=== PATIENT | female | born 1950 | race Caucasian/White ===

== ENCOUNTER 2017-08-27 15:53 | Emergency (ER) | payer MEDICARE, OTHER ==
[2017-08-27 16:22] VITALS: BP 145/84; PULSE 72; O2SAT 98
--- NOTE | 2017-08-27 16:50 | ERPHSYRPT ---
- History of Present Illness Time Seen by Provider: 08/27/17 16:42 Source: patient Exam Limitations: no limitations Patient Subjective Stated Complaint: pt reports stepping down from a small step ladder when she struck her leg. pt reports pain and laceration to right lower leg. pt denies LOC. pt denies any other injury. Triage Nursing Assessment: pt is aox3, pupils perrl, afebrile, resps easy and non labored, radial pulses strong and equal. pt skin pink warm dry. laceration to the right bartlett measuring 3cm. wound is well approximated, bleeding is controlled at this time. pedal pulse strong, sensation intact, cap refill < 3 seconds. Physician History: The patient is a 67-year-old female complaining that she slipped as she was stepping off of a ladder in her kitchen causing the front lower part of her right lower leg to catch on the ladder, causing a skin tear. She did not fall and hit her head. There was no loss of consciousness. Her last tetanus vaccination was only 2 months ago. She denies numbness or tingling. Her past medical history significant for UTIs and hypertension. Timing/Duration: today Quality: painful Severity: mild Location: extremities (right lower leg) Possible Causes: other (fall) Associated Symptoms: denies symptoms Allergies/Adverse Reactions: clarithromycin [From Biaxin] Allergy (Severe, Verified 08/27/17 16:23) Hives Coconut Allergy (Severe, Verified 08/27/17 16:23) Difficulty Breathing green dye *RETIRED-07/03/12 [Green Dye] Allergy (Mild, Verified 08/27/17 16:23) Swelling swelling ears red dye [Red Dye] Allergy (Mild, Verified 08/27/17 16:23) Swelling ears swell levofloxacin [From Levaquin] Adverse Reaction (Mild, Verified 08/27/17 16:23) Joint Aches Home Medications: Amitriptyline HCl 50 mg PO DAILY 08/16/15 [History] Esomeprazole Magnesium [Nexium] 20 mg PO BID 08/16/15 [History] Lisinopril 10 mg [Zestril 10 MG] 10 mg PO DAILY 08/16/15 [History] Tramadol HCl 50 mg [Ultram 50 mg] 50 mg PO DAILY 08/16/15 [History] Zolpidem Tartrate [Ambien] 10 mg PO HS 08/16/15 [History] Hx Tetanus, Diphtheria Vaccination/Date Given: Yes Hx Influenza Vaccination/Date Given: No Hx Pneumococcal Vaccination/Date Given: No Immunizations Up to Date: Yes - Review of Systems Constitutional: No Fever, No Chills Eyes: No Symptoms Ears, Nose, & Throat: No Symptoms Respiratory: No Cough, No Dyspnea Cardiac: No Chest Pain, No Edema, No Syncope Abdominal/Gastrointestinal: No Abdominal Pain, No Nausea, No Vomiting, No Diarrhea Genitourinary Symptoms: No Dysuria Musculoskeletal: No Back Pain, No Neck Pain Skin: Other (skin tear), No Rash Neurological: No Dizziness, No Focal Weakness, No Sensory Changes Psychological: No Symptoms Endocrine: No Symptoms Hematologic/Lymphatic: No Symptoms Immunological/Allergic: No Symptoms All Other Systems: Reviewed and Negative - Past Medical History Pertinent Past Medical History: Yes ENT History: No Pertinent History Cardiac History: High Cholesterol, Hypertension Respiratory History: Asthma, Other Endocrine Medical History: Diabetes Type I Musculoskeletal History: Arthritis, Fractures GI Medical History: Diverticulitis, Gallbladder Disease, Pancreatitis History: No Pertinent History Psycho-Social History: Depression Female Reproductive Disorders: No Pertinent History Other Medical History: BLADDER TIE - Past Surgical History Past Surgical History: Yes Neuro Surgical History: No Pertinent History Cardiac: No Pertinent History Respiratory: No Pertinent History Gastrointestinal: Appendectomy, Cholecystectomy, Hernia Repair Genitourinary: No Pertinent History Musculoskeletal: No Pertinent History, Joint Replacement Female Surgical History: Hysterectomy, Other Other Surgical History: tonsilectomy, carpal tunnel, trigger finger X3, BLADDER SLING - Social History Smoking Status: Never smoker How long have you smoked: 20 years Exposure to second hand smoke: No Drug Use: none Patient Lives Alone: No - Female History Hx Now: No - Nursing Vital Signs Nursing Vital Signs: Initial Vital Signs Temperature 98.9 F 08/27/17 16:11 Pulse Rate 72 08/27/17 16:11 Respiratory Rate 20 08/27/17 16:11 Blood Pressure 145/84 08/27/17 16:11 O2 Sat by Pulse Oximetry 98 08/27/17 16:11 Pain Scale Pain Intensity 8 - Physical Exam General Appearance: no apparent distress, alert Eye Exam: PERRL/EOMI, eyes nml inspection Ears, Nose, Throat Exam: normal ENT inspection, pharynx normal, moist mucous membranes Neck Exam: normal inspection, non-tender, supple, full range of motion Respiratory Exam: normal breath sounds, lungs clear, No respiratory distress Cardiovascular Exam: regular rate/rhythm, normal heart sounds Gastrointestinal/Abdomen Exam: soft, mass, No tenderness Pelvic Exam: not done Rectal Exam: not done Back Exam: normal inspection, normal range of motion, No CVA tenderness, No vertebral tenderness Extremity Exam: normal inspection, normal range of motion Neurologic Exam: alert, 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, cooperative, normal mood/affect, sensation nml, No motor deficits Skin Exam: laceration (2 x 4 cm skin tear to infero-anterior aspect of rigth lower leg. Good hemostasis.) SpO2: 98 Oxygen Delivery: Room Air - Progress Progress: improved Counseled pt/family regarding: diagnosis - Departure Time of Disposition: 16:54 Departure Disposition: Home Clinical Impression: Skin tear Condition: Stable Critical Care Time: No Referrals: WENDY WILLS [Primary Care Provider] - Additional Instructions: You have a skin tear to the front part of your lower right leg. The skin tear was repaired with Steri-Strips. Allow the Steri-Strips to fall off on their own. Try to avoid immersion in water for prolonged periods of time until the Steri-Strips have fallen off. Take Keflex 500 mg 4 times a day for 10 days. Follow-up with your primary medical doctor as needed. Prescriptions: Cephalexin Mh 500 mg [Keflex 500 mg] 1 cap PO QID #40 capsule
== END 2017-08-27 17:27 | disposition home or self-care (01) ==
LOC: ED 15:53
DX: S81.811A Laceration without foreign body, right lower leg, initial encounter (principal); W18.49XA Other slipping, tripping and stumbling without falling, initial encounter; Y92.000 Kitchen of unspecified non-institutional (private) residence as the place of occurrence of the external cause; Z79.899 Other long term (current) drug therapy
CPT/HCPCS: 99283

== ENCOUNTER 2017-11-04 10:41 | Emergency (ER) | payer MEDICARE, OTHER ==
[2017-11-04] MEDS ORDERED: DUONEB 0.5-3 MG/3 ml Neb IH ONE ×2 (10:57→11:19)
--- NOTE | 2017-11-04 11:04 | ERPHSYRPT ---
- History of Present Illness Time Seen by Provider: 11/04/17 10:53 Source: patient Exam Limitations: no limitations Physician History: 67 y/o female comes to the ER with complaints of cough, congestion and shortness of breath that started yesterday. Pt has not used any OTC medss. Pt states that she has knee surgery on 11/13. Pt admits to feeling warm. Pt states having pneumonia in the past and this feels similar to that time. Pt denies any chest pain, dizziness, palpitations or leg swelling. Timing/Duration: yesterday Cough Quality/Degree: moderate Possible Cause: no prior episodes Modifying Factors: Improves With: nothing Associated Symptoms: cough, shortness of breath, No wheezing International travel in last 2 weeks: No Allergies/Adverse Reactions: clarithromycin [From Biaxin] Allergy (Severe, Verified 11/04/17 11:07) Hives Coconut Allergy (Severe, Verified 11/04/17 11:07) Difficulty Breathing green dye *RETIRED-07/03/12 [Green Dye] Allergy (Mild, Verified 11/04/17 11:07) Swelling swelling ears red dye [Red Dye] Allergy (Mild, Verified 11/04/17 11:07) Swelling ears swell levofloxacin [From Levaquin] Adverse Reaction (Mild, Verified 11/04/17 11:07) Joint Aches Home Medications: Esomeprazole Magnesium [Nexium] 20 mg PO BID 08/16/15 [History] Lisinopril 10 mg [Zestril 10 MG] 10 mg PO DAILY 08/16/15 [History] Zolpidem Tartrate [Ambien] 10 mg PO HS 08/16/15 [History] Hx Tetanus, Diphtheria Vaccination/Date Given: Yes Hx Influenza Vaccination/Date Given: No Hx Pneumococcal Vaccination/Date Given: No - Review of Systems Constitutional: No Fever, No Chills Eyes: No Symptoms Ears, Nose, & Throat: Ear Pain Respiratory: Cough, Dyspnea on Exertion (WILSON), No Dyspnea Cardiac: No Chest Pain, No Edema, No Syncope Abdominal/Gastrointestinal: No Abdominal Pain, No Nausea, No Vomiting, No Diarrhea Genitourinary Symptoms: No Dysuria Musculoskeletal: No Back Pain, No Neck Pain Skin: No Rash Neurological: No Dizziness, No Focal Weakness, No Sensory Changes Psychological: No Symptoms Endocrine: No Symptoms All Other Systems: Reviewed and Negative - Past Medical History Pertinent Past Medical History: Yes Neurological History: No Pertinent History ENT History: No Pertinent History Cardiac History: Arrhythmia, Hypertension Respiratory History: Asthma, Bronchitis Endocrine Medical History: Diabetes Type II Musculoskeletal History: Arthritis GI Medical History: Diverticulitis, Gallbladder Disease, Pancreatitis History: No Pertinent History Psycho-Social History: Depression Female Reproductive Disorders: No Pertinent History Other Medical History: BLADDER TIE - Past Surgical History Past Surgical History: Yes Neuro Surgical History: No Pertinent History Cardiac: No Pertinent History Respiratory: No Pertinent History Gastrointestinal: Appendectomy, Cholecystectomy, Hernia Repair Genitourinary: No Pertinent History Musculoskeletal: No Pertinent History, Joint Replacement Female Surgical History: Hysterectomy, Other Other Surgical History: tonsilectomy, carpal tunnel, trigger finger X3, BLADDER SLING - Social History Smoking Status: Never smoker How long have you smoked: 20 years Exposure to second hand smoke: No Drug Use: none Patient Lives Alone: No - Nursing Vital Signs Nursing Vital Signs: Initial Vital Signs Temperature 98.1 F 11/04/17 10:55 Pulse Rate 64 11/04/17 10:55 Respiratory Rate 18 11/04/17 10:55 Blood Pressure 150/57 11/04/17 10:55 O2 Sat by Pulse Oximetry 97 11/04/17 10:55 Pain Scale Pain Intensity 2 - Physical Exam General Appearance: no apparent distress, alert Eye Exam: PERRL/EOMI, eyes nml inspection Ears, Nose, Throat Exam: normal ENT inspection, TMs normal, pharynx normal, moist mucous membranes Neck Exam: normal inspection, non-tender, supple, full range of motion Respiratory Exam: normal breath sounds, lungs clear, No respiratory distress Cardiovascular Exam: regular rate/rhythm, normal heart sounds Gastrointestinal/Abdomen Exam: soft, normal bowel sounds, No tenderness Back Exam: normal inspection, No CVA tenderness, No vertebral tenderness Extremity Exam: normal inspection, normal range of motion Neurologic Exam: alert, 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, cooperative, normal mood/affect, sensation nml, No motor deficits Skin Exam: normal color, warm, dry, No rash Lymphatic Exam: No adenopathy - Course Nursing assessment & vital signs reviewed: Yes EKG Interpreted by Me: RATE (HR 62), NORMAL AXIS, NORMAL INTERVALS, NORMAL QRS, NORMAL ST-T Ordered Tests: Active Orders 24 hr Category Date Time 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 Care 11/04/17 10:56 Active EKG-ER Only STAT Care 11/04/17 10:56 Active IV Insertion STAT Care 11/04/17 10:56 Active Pulse Oximetry (ED) STAT Care 11/04/17 10:56 Active CHEST 1 VIEW (PORTABLE) Stat Exams 11/04/17 11:14 Taken BLOOD CULTURE Stat Lab 11/04/17 11:00 Received CBC W DIFF Stat Lab 11/04/17 11:00 Completed CK-Creatinine Phosphokinase Stat Lab 11/04/17 11:00 Completed CMP Stat Lab 11/04/17 11:00 Completed NT PRO BNP Stat Lab 11/04/17 11:00 Completed TROPONIN Q3H Lab 11/04/17 11:00 Completed TROPONIN Q3H Lab 11/04/17 14:00 Ordered TROPONIN Q3H Lab 11/04/17 17:00 Ordered TROPONIN Q3H Lab 11/04/17 20:00 Ordered TROPONIN Q3H Lab 11/04/17 23:00 Ordered Peak Expiratory Flow Rate ONCE RT 11/04/17 11:23 Completed Respiratory Therapy Assessment DAILY RT 11/04/17 11:22 Completed Medication Summary Discontinued Medications Generic Name Dose Route Start Last Admin Trade Name Freq PRN Reason Stop Dose Admin Albuterol/Ipratropium 3 ml 11/04/17 10:57 11/04/17 11:23 Duoneb 0.5-3 Mg/3 Ml Neb IH 11/04/17 10:58 3 ml STAT ONE Administration Albuterol/Ipratropium Confirm 11/04/17 11:19 Duoneb 0.5-3 Mg/3 Ml Neb Administered 11/04/17 11:20 Dose 3 ml IH .STK-MED ONE Doxycycline Hyclate 100 mg 11/04/17 11:55 Vibramycin 100 Mg PO 11/04/17 11:56 STAT ONE Lab/Rad Data: Laboratory Result Diagrams 11/04/17 11:00 11/04/17 11:00 Laboratory Results 11/04/17 11/04/17 11/04/17 Range/Units 11:00 11:00 11:00 WBC 6.6 (4.0-10.5) K/mm3 RBC 4.84 (4.1-5.4) M/mm3 Hgb 14.2 (12.0-16.0) gm/dl Hct 42.4 (35-47) % MCV 87.6 (78-100) fl MCH 29.3 (26-32) pg MCHC 33.5 (32-36) g/dl RDW 14.5 H (11.5-14.0) % Plt Count 201 (150-450) K/mm3 MPV 11.7 H (6-9.5) fl Gran % 59.1 (36.0-66.0) % Eos # (Auto) 0.46 (0-0.5) Absolute Lymphs (auto) 1.44 (1.0-4.6) Absolute Monos (auto) 0.75 (0.0-1.3) Lymphocytes % 21.9 L (24.0-44.0) % Monocytes % 11.4 (0.0-12.0) % Eosinophils % 7.0 H (0.00-5.0) % Basophils % 0.6 (0.0-0.4) % Absolute Granulocytes 3.88 (1.4-6.9) Basophils # 0.04 (0-0.4) Sodium 141 (137-145) mmol/L Potassium 4.1 (3.5-5.1) mmol/L Chloride 103 (98-107) mmol/L Carbon Dioxide 28 (22-30) mmol/L Anion Gap 14.1 (5-15) MEQ/L BUN 18 H (7-17) mg/dL Creatinine 0.74 (0.52-1.04) mg/dL Estimated GFR > 60.0 ML/MIN Glucose 129 H (74-106) mg/dL Calcium 9.1 (8.4-10.2) mg/dL Total Bilirubin 0.90 (0.2-1.3) mg/dL AST 21 (14-36) U/L ALT 21 (0-35) U/L Alkaline Phosphatase 95 (38-126) U/L Creatine Kinase 23 L (30-135) U/L Troponin I < 0.012 (0.000-0.034) ng/mL NT-Pro-B Natriuret Pep 212 (0-900) pg/mL Serum Total Protein 7.1 (6.3-8.2) g/dL Albumin 4.4 (3.5-5.0) g/dL - Progress Progress: improved Progress Note: 11/04/17 11:55 The CXR does not show any pneumonia and the labs as well as cardiac workup is within normal limits. The patient will be placed on doxycycline for 7 days for suspected bronchitis. - Departure Time of Disposition: 11:56 Departure Disposition: Home Clinical Impression: Bronchitis Condition: Stable Critical Care Time: No Referrals: WENDY WILLS [Primary Care Provider] - Instructions: Acute Bronchitis, Adult (DC) Additional Instructions: Return to the ER if you should have worsening shortness of breath, cough, congestion, fever or chills. Prescriptions: Benzonatate [Tessalon Perle] 100 mg PO QID PRN #20 capsule PRN Reason: Cough Doxycycline Hyclate 100 mg [Vibramycin 100 MG] 100 mg PO BID #13 tab
[2017-11-04 11:28] LABS: BASOPHIL % 0.6 % (0.0-0.4); Basophil (Absolute #) 0.04 (0-0.4); Eosinophil (Absolute #) 0.46 (0-0.5); Granulocyte Absolute (ANC) 3.88 (1.4-6.9); Granulocytes % 59.1 % (36.0-66.0); Hematocrit 42.4 % (35-47); Hemoglobin 14.2 gm/dl (12.0-16.0); Lymphocyte (Absolute #) 1.44 (1.0-4.6); Lymphocytes % 21.9 % (24.0-44.0); Mean Cell Volume 87.6 fl (78-100); Mean Corpuscular Hemoglobin 29.3 pg (26-32); Mean Corpuscular Hgb Concent. 33.5 g/dl (32-36); Mean Platelet Volume 11.7 fl (6-9.5); Monocyte (Absolute #) 0.75 (0.0-1.3); Monocytes % 11.4 % (0.0-12.0); Platelet Count 201 K/mm3 (150-450); Red Blood Count 4.84 M/mm3 (4.1-5.4); Red Cell Distribution Width 14.5 % (11.5-14.0); White Blood Count 6.6 K/mm3 (4.0-10.5)
[2017-11-04 11:46] LABS: ALBUMIN 4.4 g/dL (3.5-5.0); ALKALINE PHOSPHATASE 95 U/L (38-126); ANION GAP 14.1 MEQ/L (5-15); BLOOD UREA NITROGEN 18 mg/dL (7-17); CHLORIDE 103 mmol/L (98-107); CK-Creatinine Phosphokinase 23 U/L (30-135); Calcium 9.1 mg/dL (8.4-10.2); Carbon Dioxide 28 mmol/L (22-30); Creatinine 1 0.74 mg/dL (0.52-1.04); Glucose 129 mg/dL (74-106); NT PRO BNP 212 pg/mL (0-900); Potassium 4.1 mmol/L (3.5-5.1); SGOT/AST 21 U/L (14-36); SGPT/ALT 21 U/L (0-35); SODIUM 141 mmol/L (137-145); Total Protein 7.1 g/dL (6.3-8.2)
[2017-11-04] MEDS ORDERED: Vibramycin 100 MG PO ONE (11:55)
[2017-11-04] MEDS ORDERED: Vibramycin 100 MG ONE (12:20)
[2017-11-04 12:35] VITALS: BP 130/53; PULSE 70; O2SAT 95
--- NOTE | 2017-11-04 20:46 | XRAY ---
Indication: Fever, cough, and congestion. Comparison: February 27, 2012. Portable chest again demonstrates hilar calcified nodes. Heart is not enlarged. No focal infiltrate, consolidation, or large effusion. Bony thorax intact. New epigastric postsurgical changes. Impression: Nonacute chest with chronic features.
== END 2017-11-04 12:42 | disposition home or self-care (01) ==
LOC: ED 10:41
DX: J40 Bronchitis, not specified as acute or chronic (principal); Z79.899 Other long term (current) drug therapy
CPT/HCPCS: 36000; 36415; 71045; 80053; 82550; 83880; 84484; 85025; 87040; 93005; 93041; 94150; 94640; 99284; A9270-GY

== ENCOUNTER 2017-11-16 10:15 | Inpatient (IN) | payer MEDICARE, OTHER ==
[2017-11-16] MEDS: Oxy-IR 5 MG PO PRN (16:34)
[2017-11-16] MEDS ORDERED: Tessalon Perles 100 MG PO PRN (17:25)
--- NOTE | 2017-11-16 17:59 | PCM.HP ---
History of Present Illness - Chief Complaint Chief Complaint: deconditioning r/t right tkr Date: 11/16/17 History of Present Illness: is a 67 year old female. who presents after right total knee completed at [facility] she has some pretty severe pain in the knee after transfer and some residual coughing from her previous bought of bronchitis she has not had a bm since prior to surgery her last A1c was 5.8% and she has not been on her glipizide since the surgery. She recovered very well from her first total knee on the left - Review of Systems Constitutional: No Fever, No Chills Eyes: No Symptoms Ears, Nose, & Throat: No Symptoms Respiratory: Cough, No Short Of Breath Cardiac: No Chest Pain, No Edema, No Syncope Abdominal/Gastrointestinal: No Abdominal Pain, No Nausea, No Vomiting, No Diarrhea Genitourinary Symptoms: No Dysuria Musculoskeletal: No Back Pain, No Neck Pain Skin: No Rash Neurological: No Dizziness, No Focal Weakness, No Sensory Changes Psychological: No Symptoms Endocrine: No Symptoms Hematologic/Lymphatic: No Symptoms Immunological/Allergic: No Symptoms Medications & Allergies Home Medications: Home Medication List Zolpidem Tartrate [Ambien] 10 mg PO HSPRN PRN 08/16/15 [History Confirmed ] Albuterol 8 gm Mdi Hfa [Ventolin Hfa MDI] 2 puff IH Q4HPRN PRN 11/16/17 [ History Confirmed 11/16/17] Allopurinol 100 mg [Zyloprim 100 mg] 100 mg PO HS 11/16/17 [History Confirmed 11/16/17] Aspirin EC 325 mg [Ecotrin 325 MG] 325 mg PO BID 11/16/17 [History Confirmed 11/16/17] Benzonatate [Tessalon Perle] 100 mg PO TIDPRN PRN 11/16/17 [History Confirmed ] Celecoxib [Celebrex] 200 mg PO BID 11/16/17 [History Confirmed 11/16/17] Doxycycline Hyclate 100 mg [Vibramycin 100 MG] 100 mg PO BID 11/16/17 [ History Confirmed 11/16/17] Fluticasone Propionate [Flonase NASAL] 1 spray NS HSPRN PRN 11/16/17 [ History Confirmed 11/16/17] Glipizide 5 mg [Glucotrol 5 MG] 5 mg PO BID 11/16/17 [History Confirmed ] Hydrocodone Bit/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 [[place] 7.5-325 Tablet] 1 - 2 tab PO Q4HPRN PRN 09/26 [History Confirmed 11/16/17] Loratadine 10 mg [Claritin 10 mg] 10 mg PO HS 11/16/17 [History Confirmed 11/16/17] Ondansetron ODT 4 MG [Zofran Odt 4 mg] 1 - 2 tab PO Q6HPRN PRN 11/16/17 [ History Confirmed 11/16/17] Oxycodone HCl 5 mg Ir [Oxy-IR 5 MG] 1 - 2 tab PO Q4HPRN PRN 11/16/17 [ History Confirmed 11/16/17] Sennosides/Docusate Sodium [Senna-S Tablet] 2 tab PO HSPRN PRN 11/16/17 [ History Confirmed 11/16/17] Spironolactone 25 mg [Aldactone 25 MG] 25 mg PO 1800 11/16/17 [History Confirmed 11/16/17] Allergies/Adverse Reactions: Allergies Allergy/AdvReac Type Severity Reaction Status Date / Time clarithromycin [From Biaxin] Allergy Severe Hives Verified 11/04/17 11:07 Coconut Allergy Severe Difficulty Verified 11/04/17 11:07 Breathing green dye *RETIRED-07/03/12 Allergy Mild Swelling Verified 11/04/17 11:07 [Green Dye] red dye [Red Dye] Allergy Mild Swelling Verified 11/04/17 11:07 levofloxacin [From Levaquin] AdvReac Mild Joint Aches Verified 11/04/17 11:07 - Past Medical History Past Medical History: Yes Neurological History: No Pertinent History ENT History: No Pertinent History Cardiac History: Arrhythmia, Hypertension Respiratory History: Asthma, Bronchitis Endocrine Medical History: Diabetes Type II Musculoskelatal History: Arthritis GI Medical History: Diverticulitis, Gallbladder Disease, Pancreatitis History: No Pertinent History Pyscho-Social History: No Pertinent History Reproductive Disorders: No Pertinent History Comment: BLADDER TIE - Female History Are you now?: No - Past Surgical History Past Surgical History: Yes Neuro Surgical History: No Pertinent History Cardiac History: No Pertinent History Respiratory Surgery: No Pertinent History GI Surgical History: Appendectomy, Cholecystectomy, Hernia Repair Genitourinary Surgical Hx: No Pertinent History Musculskeletal Surgical Hx: No Pertinent History, Joint Replacement, Orthopedic Surgery Female Surgical History: Hysterectomy, Other Other Surgical History: tonsilectomy, carpal tunnel, trigger finger X3, BLADDER SLING, colorectal - Social History Smoking Status: Former smoker How long have you smoked: 20 years Exposure to second hand smoke: No Alcohol: None Drug Use: none - Physical Exam Vital Signs: Vital Signs - 24 hr Temp Pulse Resp BP Pulse Ox 11/16/17 17:22 98 F 62 20 125/56 98 11/16/17 16:49 98.0 F 62 20 125/56 98 General Appearance: no apparent distress, alert, obese Neurologic Exam: alert, 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, cooperative, normal mood/affect, nml cerebellar function Eye Exam: PERRL/EOMI, eyes nml inspection Ears, Nose, Throat Exam: normal ENT inspection, TMs normal, pharynx normal, moist mucous membranes Neck Exam: normal inspection, non-tender, supple, full range of motion Respiratory Exam: normal breath sounds, lungs clear, No respiratory distress Cardiovascular Exam: regular rate/rhythm, normal heart sounds, normal peripheral pulses Gastrointestinal/Abdomen Exam: soft, normal bowel sounds, No tenderness, No mass Back Exam: normal inspection, normal range of motion, No CVA tenderness, No vertebral tenderness Extremity Exam: pelvis stable, other (right knee post op surgical dressing clean and dry no distal swelling or calf tenderness she does have skin tear on the distal right lower leg with clean dry base that per patient occured during surgery) Skin Exam: normal color, warm, dry, No rash Lymphatic Exam: No adenopathy Results - Labs Lab/Micro Results: Accuchecks Date 11/16/17 Time 16:30 Accucheck Value: 88 Accuchecks Date 11/16/17 Time 16:30 Accucheck Value: 88 Assessment/Plan (1) Muscular deconditioning Current Visit: Yes Status: Acute Assessment & Plan: good rehab potential follow post op orders for therapy per ortho on asa 325 bid for her dvt ppx Code(s): R29.898 - OTH SYMPTOMS AND SIGNS INVOLVING THE MUSCULOSKELETAL SYSTEM (2) Total knee replacement status Current Visit: Yes Status: Acute Qualifiers: Laterality: right Qualified Code(s): Z96.651 - Presence of right artificial knee joint Code(s): Z96.659 - PRESENCE OF UNSPECIFIED ARTIFICIAL KNEE JOINT (3) Type 2 diabetes mellitus Current Visit: Yes Status: Acute Assessment & Plan: currently diet controlled sugar is 82 and she has not had any glipizide this week continue off the glipizide (4) Obesity Current Visit: Yes Status: Acute Code(s): E66.9 - OBESITY, UNSPECIFIED
[2017-11-16] MEDS: Aldactone 25 MG PO SCH (18:03)
[2017-11-16] MEDS: NORCO 7.5/325 MG TAB PO PRN ×2 (18:22→22:29)
[2017-11-16] MEDS ORDERED: NON-FORMULARY ITEM (Celecoxib [Celebrex] 200 MG) PO SCH (22:00)
[2017-11-16] MEDS ORDERED: PROVENTIL 2.5 MG/3 ML NEB IH PRN (22:14)
[2017-11-16] MEDS ORDERED: PROVENTIL COMMON CANISTER IH PRN (22:14)
[2017-11-16] MEDS: ZYLOPRIM 100 MG PO SCH (22:30)
[2017-11-16] MEDS: CLARITIN 10 MG PO SCH (22:30)
[2017-11-16] MEDS: celeBREX 100 MG PO SCH (22:30)
[2017-11-16] MEDS: Ecotrin 325 MG PO SCH (22:31)
[2017-11-17] MEDS: Ambien 10 MG PO PRN ×2 (00:23→21:39)
[2017-11-17] MEDS: NORCO 7.5/325 MG TAB PO PRN ×4 (04:54→21:47)
[2017-11-17] MEDS: Oxy-IR 5 MG PO PRN (06:06)
[2017-11-17] MEDS ORDERED: Aplisol ID SCH (10:00)
[2017-11-17] MEDS: celeBREX 100 MG PO SCH ×2 (10:27→21:39)
[2017-11-17] MEDS: Ecotrin 325 MG PO SCH ×2 (10:27→21:40)
[2017-11-17] MEDS: Aldactone 25 MG PO SCH (17:46)
[2017-11-17] MEDS: Senokot-S Tablet PO PRN (17:56)
[2017-11-17] MEDS: ZOFRAN ODT 4 MG PO PRN (19:44)
[2017-11-17] MEDS: ZYLOPRIM 100 MG PO SCH (21:39)
[2017-11-17] MEDS: CLARITIN 10 MG PO SCH (21:39)
[2017-11-18] MEDS: NORCO 7.5/325 MG TAB PO PRN ×3 (03:43→14:59)
[2017-11-18] MEDS: Oxy-IR 5 MG PO PRN ×2 (07:35→12:24)
[2017-11-18] MEDS: Ecotrin 325 MG PO SCH ×2 (09:22→21:28)
[2017-11-18] MEDS: celeBREX 100 MG PO SCH ×2 (09:22→21:28)
[2017-11-18] MEDS: ZOFRAN ODT 4 MG PO PRN ×2 (10:58→17:04)
[2017-11-18] MEDS: Aldactone 25 MG PO SCH (17:03)
[2017-11-18] MEDS: ZYLOPRIM 100 MG PO SCH (21:28)
[2017-11-18] MEDS: CLARITIN 10 MG PO SCH (21:28)
[2017-11-18] MEDS: Ambien 10 MG PO PRN (21:28)
[2017-11-19] MEDS ORDERED: CITROMA 296 ML PO ONE (08:23)
[2017-11-19] MEDS: celeBREX 100 MG PO SCH ×2 (08:48→22:11)
[2017-11-19] MEDS: Ecotrin 325 MG PO SCH ×2 (08:48→22:11)
[2017-11-19] MEDS: NORCO 5/325 MG PO PRN ×3 (09:58→22:15)
[2017-11-19] MEDS: Oxy-IR 5 MG PO PRN ×2 (12:54→20:26)
[2017-11-19] MEDS: Aldactone 25 MG PO SCH (20:27)
[2017-11-19] MEDS: Ambien 10 MG PO PRN (22:10)
[2017-11-19] MEDS: Senokot-S Tablet PO PRN (22:11)
[2017-11-19] MEDS: CLARITIN 10 MG PO SCH (22:11)
[2017-11-19] MEDS: ZYLOPRIM 100 MG PO SCH (22:11)
[2017-11-20] MEDS: NORCO 5/325 MG PO PRN ×3 (03:35→21:27)
[2017-11-20] MEDS: TYLENOL 325 MG PO PRN (08:35)
[2017-11-20] MEDS: celeBREX 100 MG PO SCH ×2 (09:11→21:27)
[2017-11-20] MEDS: Miralax Powder 17GM PACKET PO SCH (09:11)
[2017-11-20] MEDS: Ecotrin 325 MG PO SCH ×2 (09:11→21:26)
[2017-11-20] MEDS: Oxy-IR 5 MG PO PRN ×2 (10:47→18:35)
[2017-11-20] MEDS: Aldactone 25 MG PO SCH (17:22)
[2017-11-20] MEDS: ZOFRAN ODT 4 MG PO PRN (18:35)
[2017-11-20] MEDS: CLARITIN 10 MG PO SCH (21:26)
[2017-11-20] MEDS: Ambien 10 MG PO PRN (21:27)
[2017-11-20] MEDS: ZYLOPRIM 100 MG PO SCH (21:27)
[2017-11-21] MEDS: NORCO 5/325 MG PO PRN ×4 (03:42→19:19)
[2017-11-21] MEDS: Ecotrin 325 MG PO SCH ×2 (09:29→21:59)
[2017-11-21] MEDS: celeBREX 100 MG PO SCH ×2 (09:29→21:59)
[2017-11-21] MEDS: Miralax Powder 17GM PACKET PO SCH (09:30)
[2017-11-21] MEDS: Oxy-IR 5 MG PO PRN ×3 (11:28→22:08)
[2017-11-21] MEDS: Aldactone 25 MG PO SCH (17:55)
[2017-11-21] MEDS: Ambien 10 MG PO PRN (21:59)
[2017-11-21] MEDS: Senokot-S Tablet PO PRN (21:59)
[2017-11-21] MEDS: ZYLOPRIM 100 MG PO SCH (22:00)
[2017-11-21] MEDS: CLARITIN 10 MG PO SCH (22:00)
[2017-11-22] MEDS: TYLENOL 325 MG PO PRN (02:14)
[2017-11-22] MEDS: NORCO 5/325 MG PO PRN ×4 (06:16→21:46)
[2017-11-22] MEDS: Ecotrin 325 MG PO SCH ×2 (10:27→21:15)
[2017-11-22] MEDS: celeBREX 100 MG PO SCH ×2 (10:27→21:14)
[2017-11-22] MEDS: Miralax Powder 17GM PACKET PO SCH (10:28)
[2017-11-22] MEDS: Oxy-IR 5 MG PO PRN (14:03)
[2017-11-22] MEDS: Aldactone 25 MG PO SCH (18:08)
[2017-11-22] MEDS: CLARITIN 10 MG PO SCH (21:14)
[2017-11-22] MEDS: ZYLOPRIM 100 MG PO SCH (21:14)
[2017-11-22] MEDS: Senokot-S Tablet PO PRN (21:27)
[2017-11-22 21:55] LABS: Appearance CLOUDY (CLEAR); Bacteria PACKED /HPF (NEGATIVE); Bilirubin NEGATIVE (NEGATIVE); Blood 50 Ery/ul (0-5); Epithelial Cells MODERATE /HPF (FEW); Glucose NEGATIVE (NEGATIVE); Ketones NEGATIVE (NEGATIVE); Leukocyte Esterase 1+ (NEGATIVE); Mucus MODERATE /HPF (NEGATIVE); Nitrite POSITIVE (NEGATIVE); Protein,Urine Dip NEGATIVE (Negative); RBC 0-2 /HPF (0-2); Specific Gravity 1.015 (1.005-1.025); Urobilinogen NORMAL mg/dL (0-1); WBC 25-50 /HPF (0-5)
[2017-11-22] MEDS: Ambien 10 MG PO PRN (23:26)
[2017-11-23] MEDS: NORCO 5/325 MG PO PRN ×3 (03:46→12:20)
[2017-11-23] MEDS: KEFLEX 500 MG PO SCH ×3 (08:08→21:22)
[2017-11-23] MEDS: ZOFRAN ODT 4 MG PO PRN ×2 (08:12→16:20)
[2017-11-23] MEDS: Ecotrin 325 MG PO SCH ×2 (09:46→21:21)
[2017-11-23] MEDS: celeBREX 100 MG PO SCH ×2 (09:47→21:22)
[2017-11-23] MEDS: Miralax Powder 17GM PACKET PO SCH (10:46)
[2017-11-23] MEDS: Aldactone 25 MG PO SCH (16:20)
[2017-11-23] MEDS: Oxy-IR 5 MG PO PRN ×2 (16:21→20:38)
[2017-11-23] MEDS: TYLENOL 325 MG PO PRN (17:31)
[2017-11-23] MEDS ORDERED: Sodium Chloride 0.9% 100 ML IVPB 100 ML IV ONE (17:50)
[2017-11-23] MEDS: ZYLOPRIM 100 MG PO SCH (21:21)
[2017-11-23] MEDS: CLARITIN 10 MG PO SCH (21:22)
[2017-11-23] MEDS: Ambien 10 MG PO PRN (23:23)
[2017-11-24] MEDS: Oxy-IR 5 MG PO PRN ×2 (00:36→13:05)
[2017-11-24] MEDS: NORCO 5/325 MG PO PRN ×4 (04:31→19:59)
[2017-11-24] MEDS: celeBREX 100 MG PO SCH ×2 (09:58→21:52)
[2017-11-24] MEDS: Ecotrin 325 MG PO SCH ×2 (09:58→21:53)
[2017-11-24] MEDS: KEFLEX 500 MG PO SCH ×2 (09:58→21:52)
[2017-11-24] MEDS: Miralax Powder 17GM PACKET PO SCH (10:00)
[2017-11-24] MEDS: Aldactone 25 MG PO SCH (17:57)
[2017-11-24] MEDS: ZOFRAN ODT 4 MG PO PRN (19:24)
[2017-11-24] MEDS: CLARITIN 10 MG PO SCH (21:52)
[2017-11-24] MEDS: ZYLOPRIM 100 MG PO SCH (21:52)
[2017-11-25] MEDS: Ambien 10 MG PO PRN ×2 (00:43→23:22)
[2017-11-25] MEDS: NORCO 5/325 MG PO PRN ×3 (00:44→16:01)
--- NOTE | 2017-11-25 08:23 | PCM.NOTE ---
Date and Time: 11/25/17820 Subjective Assessment: patient reports she feels "yucky" no vomiting but slightly nauseated, knee is still fairly painful. had right total knee done 12 days ago Objective Exam General Appearance: no apparent distress, alert, obese Respiratory Exam: normal breath sounds, lungs clear, No respiratory distress Cardiovascular Exam: regular rate/rhythm, normal heart sounds Gastrointestinal/Abdomen Exam: soft, No tenderness, No mass Extremity Exam: other (well approximated scar right knee, no drainage, no redness. clean, dry and intact) OBJECTIVE DATA Vital Signs: Vital Signs - 24 hr Temp Pulse Resp BP Pulse Ox 11/25/17 07:06 97.7 F 64 18 110/51 95 11/24/17 19:31 98.5 F 70 18 118/53 97 Pain Assessment - Last Documented Pain Intensity 6 Pain Scale Used 0-10 Pain Scale Intake and Output: Intake & Output 11/22/17 11/23/17 11/24/17 11/25/17 11:59 11:59 11:59 11:59 Intake Total 296 899 0369 1860 Output Total 100 1000 Balance 278 679 5998 860 Weight 102.1 kg Lab Results: Accuchecks Accucheck Value: 106 Multi-Disciplinary Progress Notes: Multi-Disciplinary Progress Notes 11/24/17 13:06 Physical Therapy Note by Lyndsey Sauer PATIENT UNABLE TO TOLERATE THERAPY SESSION YESTERDAY DUE TO SYSTEMIC ILLNESS ( UTI). TODAY WAS ABLE TO EXERCISE WITH PACING. AROM RIGHT KNEE 0 TO 114 DEGREES. WILL WALK OFTEN TOMORROW. HOPEFUL FOR FEELING BETTER BY SUNDAY. Initialized on 11/24/17 13:06 - END OF NOTE Assessment/Plan (1) UTI (urinary tract infection) Current Visit: No Status: Acute Qualifiers: Urinary tract infection type: site unspecified Hematuria presence: without hematuria Qualified Code(s): N39.0 - Urinary tract infection, site not specified Assessment & Plan: culture reviewed, need to start IV rocephin due to allergies and resistance on culture Code(s): N39.0 - URINARY TRACT INFECTION, SITE NOT SPECIFIED (2) Total knee replacement status Current Visit: Yes Status: Acute Qualifiers: Laterality: right Qualified Code(s): Z96.651 - Presence of right artificial knee joint Code(s): Z96.659 - PRESENCE OF UNSPECIFIED ARTIFICIAL KNEE JOINT (3) Muscular deconditioning Current Visit: Yes Status: Acute Code(s): R29.898 - OTH SYMPTOMS AND SIGNS INVOLVING THE MUSCULOSKELETAL SYSTEM (4) Obesity Current Visit: Yes Status: Acute Code(s): E66.9 - OBESITY, UNSPECIFIED (5) Type 2 diabetes mellitus Current Visit: Yes Status: Acute
[2017-11-25] MEDS: ROCEPHIN 1 Gm-D5w 50 ml Bag** 1 G/50 ML IVPB IV SCH (09:23)
[2017-11-25] MEDS: Zofran 4 MG/2 ML VIAL IV PRN ×2 (09:23→20:10)
[2017-11-25] MEDS: Ecotrin 325 MG PO SCH ×2 (09:26→21:55)
[2017-11-25] MEDS: Miralax Powder 17GM PACKET PO SCH (09:27)
[2017-11-25] MEDS: celeBREX 100 MG PO SCH ×2 (09:27→21:54)
[2017-11-25] MEDS ORDERED: Levofloxacin 250MG Tablet PO SCH (10:00)
[2017-11-25] MEDS: Aldactone 25 MG PO SCH (19:48)
[2017-11-25] MEDS: Senokot-S Tablet PO PRN (20:10)
[2017-11-25] MEDS: ZYLOPRIM 100 MG PO SCH (21:55)
[2017-11-25] MEDS: CLARITIN 10 MG PO SCH (21:55)
[2017-11-25] MEDS: TYLENOL 325 MG PO PRN (23:22)
[2017-11-26] MEDS: Zofran 4 MG/2 ML VIAL IV PRN ×2 (02:43→15:12)
[2017-11-26 05:52] LABS: BASOPHIL % 0.9 % (0.0-0.4); Basophil (Absolute #) 0.05 (0-0.4); Eosinophil % 7.8 % (0.00-5.0); Eosinophil (Absolute #) 0.43 (0-0.5); Granulocyte Absolute (ANC) 2.93 (1.4-6.9); Granulocytes % 52.9 % (36.0-66.0); Hematocrit 37.7 % (35-47); Hemoglobin 12.5 gm/dl (12.0-16.0); Lymphocyte (Absolute #) 1.38 (1.0-4.6); Mean Cell Volume 88.1 fl (78-100); Mean Corpuscular Hemoglobin 29.2 pg (26-32); Mean Corpuscular Hgb Concent. 33.2 g/dl (32-36); Mean Platelet Volume 10.1 fl (6-9.5); Monocyte (Absolute #) 0.74 (0.0-1.3); Monocytes % 13.4 % (0.0-12.0); Platelet Count 321 K/mm3 (150-450); Red Blood Count 4.28 M/mm3 (4.1-5.4); Red Cell Distribution Width 14.3 % (11.5-14.0); White Blood Count 5.5 K/mm3 (4.0-10.5)
[2017-11-26 06:20] LABS: ALBUMIN 3.7 g/dL (3.5-5.0); ALKALINE PHOSPHATASE 112 U/L (38-126); ANION GAP 12.3 MEQ/L (5-15); BLOOD UREA NITROGEN 14 mg/dL (7-17); CHLORIDE 102 mmol/L (98-107); Calcium 8.9 mg/dL (8.4-10.2); Carbon Dioxide 29 mmol/L (22-30); Glucose 120 mg/dL (74-106); SGOT/AST 20 U/L (14-36); SGPT/ALT 17 U/L (0-35); SODIUM 139 mmol/L (137-145); Total Protein 6.3 g/dL (6.3-8.2)
[2017-11-26] MEDS: Ecotrin 325 MG PO SCH ×2 (08:47→22:02)
[2017-11-26] MEDS: celeBREX 100 MG PO SCH ×2 (08:47→22:02)
[2017-11-26] MEDS: ROCEPHIN 1 Gm-D5w 50 ml Bag** 1 G/50 ML IVPB IV SCH (08:47)
[2017-11-26] MEDS: TYLENOL 325 MG PO PRN ×2 (08:47→12:28)
[2017-11-26] MEDS: Miralax Powder 17GM PACKET PO SCH (10:07)
[2017-11-26] MEDS: Oxy-IR 5 MG PO PRN (14:37)
[2017-11-26] MEDS: Aldactone 25 MG PO SCH (17:33)
[2017-11-26] MEDS ORDERED: Oxy-IR 5 MG PO PRN (18:01)
[2017-11-26] MEDS: NORCO 5/325 MG PO PRN (22:02)
[2017-11-26] MEDS: CLARITIN 10 MG PO SCH (22:02)
[2017-11-26] MEDS: ZYLOPRIM 100 MG PO SCH (22:02)
[2017-11-26] MEDS: Ambien 10 MG PO PRN (22:03)
[2017-11-27] MEDS: Zofran 4 MG/2 ML VIAL IV PRN (09:01)
[2017-11-27] MEDS: ROCEPHIN 1 Gm-D5w 50 ml Bag** 1 G/50 ML IVPB IV SCH (09:08)
[2017-11-27] MEDS: Miralax Powder 17GM PACKET PO SCH (09:09)
[2017-11-27] MEDS: Ecotrin 325 MG PO SCH ×2 (09:09→21:41)
[2017-11-27] MEDS: celeBREX 100 MG PO SCH ×2 (09:09→21:41)
[2017-11-27] MEDS ORDERED: Aplisol ID SCH (10:00)
[2017-11-27] MEDS ORDERED: Sodium Chloride 0.9% 1000 ML 1,000 ML IV SCH (12:30)
--- NOTE | 2017-11-27 12:32 | PCM.NOTE ---
Date and Time: 11/27/17 1227 Subjective Assessment: This is a patient of Dr. Nasim Del Rosario's here for therapy after total right knee replacement at outside facility. Patient reports she has only had 1/2 of a couple of drinks today and is nauseated at times and doesn't feel like eating. She is concerned about her UTI. She denies any dysuria. She states she spoke with Lyndsey Sauer during therapy today that she might be dehydrated. Lyndsey Sauer showed her how her skin is tenting. She had labs yesterday but not today. Her nurse notes that she has been off her oral hypoglycemic the whole time she has been here and her blood glucoses have been good. Patient reports she doesn't want to go home if she is not ready. Patient reports some left upper quadrant pain and suprapubic pain but denies dysuria. - Review of Systems Constitutional: No Symptoms Eyes: No Symptoms Ears, Nose, & Throat: No Symptoms Respiratory: No Symptoms Abdominal/Gastrointestinal: Nausea, Other (poor appetite.) Musculoskeletal: Other (right knee pain) Objective Exam General Appearance: no apparent distress, alert, obese Neurologic Exam: alert, cooperative, normal mood/affect Skin Exam: normal color, warm, dry, rash, other (scar over right knee healing well) Respiratory Exam: normal breath sounds, No crackles/rales, No rhonchi, No wheezing Cardiovascular Exam: regular rate/rhythm, normal heart sounds, No murmur, No friction rub, No gallop Gastrointestinal/Abdomen Exam: soft, normal bowel sounds, tenderness, No distention, No mass, No guarding Extremity Exam: other (no c/c/e) OBJECTIVE DATA Vital Signs: Vital Signs - 24 hr Temp Pulse Resp BP Pulse Ox 11/27/17 07:27 98.3 F 67 16 139/62 94 L 11/26/17 19:43 98.8 F 72 20 134/61 93 L Pain Assessment - Last Documented Pain Intensity 6 Pain Scale Used 0-10 Pain Scale Intake and Output: Intake & Output 11/25/17 11/26/17 11/27/17 11/28/17 06:59 06:59 06:59 06:59 Intake Total 2220 990 720 240 Output Total 1000 Balance 1220 990 720 240 Lab Results: Accuchecks Date 11/27/17 Time 07:30 Accucheck Value: 118 Multi-Disciplinary Progress Notes: Multi-Disciplinary Progress Notes 11/26/17 14:25 Nutrition Note by Rae Colunga F/u Note: Regular diet con't with 50-100% po intake. Note pt nauseated yesterday. Labs - glu 120, weight on adm 108 kg current weight 102.1 kg. goals not met consistently. Recommend NCS lowfat diet. Goals to con't. Will monitor and f/ u prn. T.DYAN Colunga Initialized on 11/26/17 14:25 - END OF NOTE Assessment/Plan (1) UTI (urinary tract infection) Current Visit: No Status: Acute Qualifiers: Urinary tract infection type: site unspecified Hematuria presence: without hematuria Qualified Code(s): N39.0 - Urinary tract infection, site not specified Assessment & Plan: Continue ceftriaxone. Recheck UA. If she is discharged, will plan to send her home on cefdinir (also a 3rd generation cephalosporin). Code(s): N39.0 - URINARY TRACT INFECTION, SITE NOT SPECIFIED (2) Poor appetite Current Visit: Yes Status: Acute Code(s): R63.0 - ANOREXIA (3) Nausea Current Visit: Yes Status: Acute Assessment & Plan: Zofran ordered. Patient reports she has taken hydrocodone in the past without nausea. Code(s): R11.0 - NAUSEA (4) Total knee replacement status Current Visit: Yes Status: Acute Qualifiers: Laterality: right Qualified Code(s): Z96.651 - Presence of right artificial knee joint Assessment & Plan: Continue with therapy and follow up planned with orthopedic surgeon. Code(s): Z96.659 - PRESENCE OF UNSPECIFIED ARTIFICIAL KNEE JOINT (5) Type 2 diabetes mellitus Current Visit: Yes Status: Acute Qualifiers: Diabetes mellitus prison insulin use: without prison use Diabetes mellitus complication status: without complication Qualified Code(s): E11.9 - Type 2 diabetes mellitus without complications Assessment & Plan: Currently diet controlled.
[2017-11-27 13:50] LABS: Appearance CLEAR (CLEAR); Bilirubin NEGATIVE (NEGATIVE); Blood NEGATIVE Ery/ul (0-5); Glucose NEGATIVE (NEGATIVE); Ketones NEGATIVE (NEGATIVE); Leukocyte Esterase NEGATIVE (NEGATIVE); Nitrite NEGATIVE (NEGATIVE); Protein,Urine Dip NEGATIVE (Negative); Urobilinogen NORMAL mg/dL (0-1)
[2017-11-27 13:54] LABS: BASOPHIL % 0.5 % (0.0-0.4); Basophil (Absolute #) 0.04 (0-0.4); Eosinophil % 3.8 % (0.00-5.0); Eosinophil (Absolute #) 0.28 (0-0.5); Granulocyte Absolute (ANC) 5.19 (1.4-6.9); Granulocytes % 69.9 % (36.0-66.0); Hematocrit 39.3 % (35-47); Hemoglobin 13.1 gm/dl (12.0-16.0); Lymphocyte (Absolute #) 1.32 (1.0-4.6); Lymphocytes % 17.8 % (24.0-44.0); Mean Cell Volume 87.7 fl (78-100); Mean Corpuscular Hemoglobin 29.2 pg (26-32); Mean Corpuscular Hgb Concent. 33.3 g/dl (32-36); Mean Platelet Volume 10.4 fl (6-9.5); Monocyte (Absolute #) 0.59 (0.0-1.3); Platelet Count 336 K/mm3 (150-450); Red Blood Count 4.48 M/mm3 (4.1-5.4); Red Cell Distribution Width 14.5 % (11.5-14.0); White Blood Count 7.4 K/mm3 (4.0-10.5)
[2017-11-27 13:57] LABS: ANION GAP 12.9 MEQ/L (5-15); BLOOD UREA NITROGEN 15 mg/dL (7-17); CHLORIDE 102 mmol/L (98-107); Calcium 9.2 mg/dL (8.4-10.2); Carbon Dioxide 28 mmol/L (22-30); Glucose 153 mg/dL (74-106); Potassium 3.7 mmol/L (3.5-5.1); SODIUM 139 mmol/L (137-145)
[2017-11-27] MEDS: Aldactone 25 MG PO SCH (17:40)
[2017-11-27] MEDS: Ambien 10 MG PO PRN (21:40)
[2017-11-27] MEDS: NORCO 5/325 MG PO PRN (21:40)
[2017-11-27] MEDS: ZYLOPRIM 100 MG PO SCH (21:41)
[2017-11-27] MEDS: CLARITIN 10 MG PO SCH (21:41)
[2017-11-28] MEDS: NORCO 5/325 MG PO PRN (06:29)
[2017-11-28 07:08] VITALS: BP 134/62; PULSE 62; O2SAT 97
--- NOTE | 2017-11-28 08:36 | PCM.DCORD ---
- Discharge Discharge Date: 11/28/17 Disposition: Home, Self-Care Condition: Good Prescriptions: New Celecoxib 100 mg [celeBREX 100 MG] 200 mg PO BID capsule Polyethylene Glycol 3350 17 gm [Miralax Powder 17GM PACKET] 17 gm PO DAILY #517 gr 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 325 mg [Tylenol 325 mg] 650 mg PO Q6H PRN PRN tablet PRN Reason: Pain And/Or Fever Continue Zolpidem Tartrate [Ambien] 10 mg PO HSPRN PRN PRN Reason: SLEEP Spironolactone 25 mg [Aldactone 25 MG] 25 mg PO 1800 Ondansetron ODT 4 MG [Zofran Odt 4 mg] 1 - 2 tab PO Q6HPRN PRN PRN Reason: Nausea Loratadine 10 mg [Claritin 10 mg] 10 mg PO HS Hydrocodone Bit/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 [[place] 7.5-325 Tablet] 1 - 2 tab PO Q4HPRN PRN PRN Reason: Pain Fluticasone Propionate [Flonase NASAL] 1 spray NS HSPRN PRN PRN Reason: Allergies Sennosides/Docusate Sodium [Senna-S Tablet] 2 tab PO HSPRN PRN PRN Reason: Constipation Aspirin EC 325 mg [Ecotrin 325 MG] 325 mg PO BID Benzonatate [Tessalon Perle] 100 mg PO TIDPRN PRN PRN Reason: Cough Allopurinol 100 mg [Zyloprim 100 mg] 100 mg PO HS Albuterol 8 gm Mdi Hfa [Ventolin Hfa MDI] 2 puff IH Q4HPRN PRN PRN Reason: BREATHING Discontinued Oxycodone HCl 5 mg Ir [Oxy-IR 5 MG] 1 - 2 tab PO Q4HPRN PRN PRN Reason: Pain Glipizide 5 mg [Glucotrol 5 MG] 5 mg PO BID Doxycycline Hyclate 100 mg [Vibramycin 100 MG] 100 mg PO BID Celecoxib [Celebrex] 200 mg PO BID Additional Instructions: FOLLOW UP WITH PT INSTRUCTED PER Lauren MOHAN Follow up with: CHRIS DURHAM [Primary Care Provider] - 12/04/17 10:00 am JAMEL SUAREZ [NON-STAFF PHY W/O PRIVILEGES] - 12/10/17 1:45 pm ()
--- NOTE | 2017-11-28 09:07 | DS ---
DISCHARGE DIAGNOSES: 1) STATUS POST RIGHT KNEE ARTHROPLASTY. 2) URINARY TRACT INFECTION. 3) INSOMNIA. 4) CONSTIPATION. DISCHARGE PHYSICAL EXAMINATION: VITALS: Temperature current 98.2F, temperature max 99.6F, heart rate 62 to 77, respiratory rate 16 to 18, blood pressure 121 to 139 over 58 to 62. Oxygen saturation 94 to 98% on room air. GENERAL: The patient is a pleasant talkative lady sitting up in no acute distress. CVS: She has a regular rate and rhythm. No murmurs, gallops or rubs are appreciated. CHEST: Clear to auscultation bilaterally. ABDOMEN: Soft, nontender, nondistended with normal bowel sounds. EXTREMITIES: No clubbing, cyanosis or edema. She has a small scrap on her right lower leg without any surrounding erythema, induration. A well healed scar over the right knee. HOSPITAL COURSE: 1) STATUS POST RIGHT KNEE ARTHROPLASTY: She was here for PT which she has continued and plans to continue as outpatient. The therapist felt that she was safe to go home. She lives by herself and continue with outpatient therapy. The patient reports she feels good today and is ready to go home. She has been taking hydrocodone over the past 24 hours and reports she did not want the oxycodone script that had been written by a provider who helped with her discharge from the knee surgery. She has a script for hydrocodone written out by a YANET Miles. She is also to take aspirin 325 mg p.o. b.i.d. to prevent blood clots and Celebrex 200 mg p.o. b.i.d. 2) URINARY TRACT INFECTION: She had symptoms of urinary tract infection over the weekend and had a urine culture that grew Citrobacter two different strains both susceptible to ceftriaxone. She was given a total of four days of ceftriaxone. A repeat UA on day three was negative so I did not feel like she needed further antibiotics after her discharge. 3) INSOMNIA: She was on Ambien while she was here. 4) CONSTIPATION: She was on MiraLAX as well as Senna while she was here. DISCHARGE MEDICATIONS: Please see the discharge order. FOLLOW UP: She has an appointment with Dr. Monroe, Orthopedic on 12/10/[address] Jaime 12/04/2017 at 1000 hours. DISPOSITION: The patient was discharged to home in fair condition.
[2017-11-28] MEDS: celeBREX 100 MG PO SCH (09:09)
[2017-11-28] MEDS: ROCEPHIN 1 Gm-D5w 50 ml Bag** 1 G/50 ML IVPB IV SCH (09:09)
[2017-11-28] MEDS: Miralax Powder 17GM PACKET PO SCH (09:09)
[2017-11-28] MEDS: Ecotrin 325 MG PO SCH (09:09)
== END 2017-11-28 11:45 | disposition home or self-care (01) | DRG 556 ==
LOC: MED SURG 15:54
PROVIDERS: ADMIT Family Medicine; ATTEND Family Medicine
DX: R29.898 Other symptoms and signs involving the musculoskeletal system (principal); N39.0 Urinary tract infection, site not specified; Z96.651 Presence of right artificial knee joint; E11.9 Type 2 diabetes mellitus without complications; R63.0 Anorexia; R11.0 Nausea; G47.00 Insomnia, unspecified; F51.9 Sleep disorder not due to a substance or known physiological condition, unspecified; K59.00 Constipation, unspecified
CPT/HCPCS: 36415; 80048; 80053; 81000; 81002; 82962; 85025; 87077; 87086; 87186; 94760; J0696; J2405; Q0162; 97110-GP; A9270-GY

== ENCOUNTER 2018-01-22 16:45 | Emergency (ER) | payer MEDICARE, OTHER ==
--- NOTE | 2018-01-22 16:58 | ERPHSYRPT ---
- History of Present Illness Historian: patient, family Exam Limitations: no limitations Timing/Duration: today, worse Activities at Onset: none Quality: aching Abdominal Pain Onset Location: LLQ, flank (left) Severity of Pain-Max: mild Severity of Pain-Current: mild Modifying Factors: Improves With: nothing Associated Symptoms: No back, No chest pain, No diaphoresis, No diarrhea, No fever/chills, No fatigue, No headache, No heartburn, No loss of appetite, No nausea, No neck pain, No rash, No shortness of breath, No syncope, No vomiting, No weakness Previous symptoms: no prior history Hx Tetanus, Diphtheria Vaccination/Date Given: Yes Hx Influenza Vaccination/Date Given: No Hx Pneumococcal Vaccination/Date Given: No <MAGDALENA TOUSSAINT - Last Filed: 01/22/18 18:54> <SHIV ESTRADA - Last Filed: 01/22/18 21:59> - History of Present Illness Time Seen by Provider: 01/22/18 16:58 Physician History: 67 y/o white female presents with rectal bleeding and mucous discharge rectally today. pt has had pain left side of abd intermittently for a couple of months. pt underwent a colonoscopy approx a year ago and a benign polyp removed but tatooed from left lower quadrant level colon. pt has had diverticulitis in past. pt denies cp, soa. pt has had a hysterectomy in past. pt has not heard from local gi specialist. she moved back to [place] from [place] recently. no anticoag tx and no liver dz. no bleeding or clotting disorders (MAGDALENA TOUSSAINT) Allergies/Adverse Reactions: clarithromycin [From Biaxin] Allergy (Severe, Verified 01/22/18 17:17) Hives Coconut Allergy (Severe, Verified 01/22/18 17:17) Difficulty Breathing green dye *RETIRED-07/03/12 [Green Dye] Allergy (Mild, Verified 01/22/18 17:17) Swelling swelling ears red dye [Red Dye] Allergy (Mild, Verified 01/22/18 17:17) Swelling ears swell levofloxacin [From Levaquin] Adverse Reaction (Mild, Verified 01/22/18 17:17) Joint Aches Home Medications: Zolpidem Tartrate [Ambien] 10 mg PO HSPRN PRN 08/16/15 [History] Fluticasone Propionate [Flonase NASAL] 1 spray NS HSPRN PRN 11/16/17 [ History] Hydrocodone Bit/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 [[place] 7.5-325 Tablet] 1 - 2 tab PO Q4HPRN PRN 09/26 [History] Loratadine 10 mg [Claritin 10 mg] 10 mg PO HS 11/16/17 [History] Spironolactone 25 mg [Aldactone 25 MG] 25 mg PO 1800 11/16/17 [History] Celecoxib 100 mg [celeBREX 100 MG] 200 mg PO DAILY 01/22/18 [History] - Review of Systems Constitutional: No Symptoms Eyes: No Symptoms Ears, Nose, & Throat: No Symptoms Respiratory: No Symptoms, No Cough, No Dyspnea, No Dyspnea on Exertion (WILSON), No Stridor, No Wheezing Cardiac: No Symptoms Abdominal/Gastrointestinal: Abdominal Pain, Hematochezia (mild amount with mucous), No Nausea, No Vomiting, No Diarrhea Genitourinary Symptoms: No Symptoms, No Dysuria, No Frequency, No Hematuria Musculoskeletal: No Symptoms, No Back Pain Skin: No Symptoms Neurological: No Symptoms Psychological: No Symptoms Endocrine: No Symptoms Hematologic/Lymphatic: No Symptoms Immunological/Allergic: No Symptoms All Other Systems: Reviewed and Negative <MAGDALENA TOUSSAINT - Last Filed: 01/22/18 18:54> - Past Medical History Pertinent Past Medical History: Yes Neurological History: Migraines ENT History: No Pertinent History Cardiac History: Arrhythmia, Hypertension Respiratory History: Asthma, Bronchitis Endocrine Medical History: Diabetes Type II Musculoskeletal History: Arthritis, Osteoarthritis, Other GI Medical History: Diverticulitis, Gallbladder Disease, Pancreatitis History: No Pertinent History Psycho-Social History: No Pertinent History Female Reproductive Disorders: No Pertinent History Other Medical History: LEFT TKR 2 YEARS AGO. RECENT UTI - Past Surgical History Past Surgical History: Yes Neuro Surgical History: No Pertinent History Cardiac: No Pertinent History Respiratory: No Pertinent History Gastrointestinal: Appendectomy, Cholecystectomy, Hernia Repair Genitourinary: No Pertinent History Musculoskeletal: No Pertinent History, Joint Replacement, Orthopedic Surgery Female Surgical History: Hysterectomy, Other Other Surgical History: tonsilectomy, carpal tunnel, trigger finger X3, BLADDER SLING, colorectal - Social History Smoking Status: Former smoker How long have you smoked: 20 years Exposure to second hand smoke: No Drug Use: none Patient Lives Alone: No <MAGDALENA TOUSSAINT - Last Filed: 01/22/18 18:54> - Physical Exam General Appearance: no apparent distress, alert, anxiety Eye Exam: PERRL/EOMI, eyes nml inspection Ears, Nose, Throat Exam: normal ENT inspection, moist mucous membranes Neck Exam: normal inspection, non-tender, supple, full range of motion Respiratory Exam: normal breath sounds, lungs clear, airway intact, No chest tenderness, No respiratory distress, No accessory muscle use, No rhonchi, No wheezing, No stridor Cardiovascular Exam: regular rate/rhythm, normal heart sounds, normal peripheral pulses Gastrointestinal/Abdomen Exam: soft, tenderness (localized left lower quadrant) Pelvic Exam: not done Rectal Exam: not done Back Exam: normal inspection, normal range of motion, No CVA tenderness, No vertebral tenderness Extremity Exam: normal inspection, normal range of motion, pelvis stable Neurologic Exam: alert, 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, cooperative, pole inspector II-XII nml as tested Skin Exam: normal color, warm, dry Lymphatic Exam: No adenopathy SpO2 Interpretation: normal <MAGDALENA TOUSSAINT - Last Filed: 01/22/18 18:54> <SHIV ESTRADA - Last Filed: 01/22/18 21:59> - Nursing Vital Signs Nursing Vital Signs: Initial Vital Signs Temperature 98.3 F 01/22/18 17:06 Pulse Rate 67 01/22/18 17:06 Blood Pressure 157/76 01/22/18 17:06 O2 Sat by Pulse Oximetry 99 01/22/18 17:06 Pain Scale Pain Intensity 5 - Course Nursing assessment & vital signs reviewed: Yes <MAGDALENA TOUSSAINT - Last Filed: 01/22/18 18:54> - CT Exams Abdomen/Pelvis CT Interpretation: Discussed w/radiologist (CT abdomen and pelvis: Compared to August 16, 2015. Interval hiatal hernia surgery. Stable sigmoid diverticulosis. Remaining abdomen/pelvis negative.) <SHIV ESTRADA - Last Filed: 01/22/18 21:59> Ordered Tests: Active Orders 24 hr Category Date Time Status Clean Catch Urine Specimen STAT Care 01/22/18 18:24 Active IV Insertion STAT Care 01/22/18 18:24 Active NPO (ED) STAT Care 01/22/18 18:24 Active Orthostatic Vital Signs STAT Care 01/22/18 19:52 Active ABDOMEN AND PELVIS W CONTRAST [CT] Stat Exams 01/22/18 18:24 Taken AMYLASE Stat Lab 01/22/18 19:00 Completed CBC W DIFF Stat Lab 01/22/18 19:00 Completed CMP Stat Lab 01/22/18 19:00 Completed LIPASE Stat Lab 01/22/18 19:00 Completed Lactic Acid Stat Lab 01/22/18 20:32 Completed UA W/RFX UR CULTURE Stat Lab 01/22/18 19:00 Completed Medication Summary Discontinued Medications Generic Name Dose Route Start Last Admin Trade Name Freq PRN Reason Stop Dose Admin Hydromorphone HCl 0.5 mg 01/22/18 19:08 01/22/18 19:32 Hydromorphone 1 Mg/Ml Ampule IV 01/22/18 19:09 0.5 mg STAT ONE Administration Hydromorphone HCl Confirm 01/22/18 19:30 Hydromorphone 1 Mg/Ml Ampule Administered 01/22/18 19:31 Dose 1 mg .ROUTE .STK-MED ONE Sodium Chloride 1,000 mls @ 999 mls/hr 01/22/18 18:24 01/22/18 18:59 Sodium Chloride 0.9% 1000 Ml IV 01/22/18 19:24 999 mls/hr .Q1H1M STA Administration Sodium Chloride Confirm 01/22/18 18:57 Sodium Chloride 0.9% 1000 Ml Administered 01/22/18 18:58 Dose 1,000 mls @ ud .ROUTE .STK-MED ONE Ondansetron HCl 4 mg 01/22/18 19:09 01/22/18 19:32 Zofran 4 Mg/2 Ml Vial IV 01/22/18 19:10 4 mg STAT ONE Administration Ondansetron HCl Confirm 01/22/18 19:30 Zofran 4 Mg/2 Ml Vial Administered 01/22/18 19:31 Dose 4 mg .ROUTE .STK-MED ONE Lab/Rad Data: Laboratory Result Diagrams 01/22/18 19:00 01/22/18 19:00 Laboratory Results 11/01/22/18 01/22/18 Range/Units 20:32 19:00 19:00 WBC (4.0-10.5) K/mm3 RBC (4.1-5.4) M/mm3 Hgb (12.0-16.0) gm/dl Hct (35-47) % MCV (78-100) fl MCH (26-32) pg MCHC (32-36) g/dl RDW (11.5-14.0) % Plt Count (150-450) K/mm3 MPV (6-9.5) fl Gran % (36.0-66.0) % Eos # (Auto) (0-0.5) Absolute Lymphs (auto) (1.0-4.6) Absolute Monos (auto) (0.0-1.3) Lymphocytes % (24.0-44.0) % Monocytes % (0.0-12.0) % Eosinophils % (0.00-5.0) % Basophils % (0.0-0.4) % Absolute Granulocytes (1.4-6.9) Basophils # (0-0.4) Sodium 139 (137-145) mmol/L Potassium 3.8 (3.5-5.1) mmol/L Chloride 106 (98-107) mmol/L Carbon Dioxide 27 (22-30) mmol/L Anion Gap 10.5 (5-15) MEQ/L BUN 18 H (7-17) mg/dL Creatinine 0.59 (0.52-1.04) mg/dL Estimated GFR > 60.0 ML/MIN Glucose 105 (74-106) mg/dL Lactic Acid 1.1 (0.4-2.0) Calcium 9.3 (8.4-10.2) mg/dL Total Bilirubin 0.50 (0.2-1.3) mg/dL AST 21 (14-36) U/L ALT 20 (0-35) U/L Alkaline Phosphatase 84 (38-126) U/L Serum Total Protein 6.1 L (6.3-8.2) g/dL Albumin 3.8 (3.5-5.0) g/dL Amylase 37 (30-110) U/L Lipase 98 (23-300) U/L Urine Color STRAW (YELLOW) Urine Appearance CLEAR (CLEAR) Urine pH 6.0 (5-6) Ur Specific [place] 1.005 (1.005-1.025) Urine Protein NEGATIVE (Negative) Urine Ketones NEGATIVE (NEGATIVE) Urine Blood NEGATIVE (0-5) West/ul Urine Nitrite NEGATIVE (NEGATIVE) Urine Bilirubin NEGATIVE (NEGATIVE) Urine Urobilinogen NORMAL (0-1) mg/dL Ur Leukocyte Esterase NEGATIVE (NEGATIVE) Urine WBC (Auto) NONE SEEN (0-5) /HPF Urine RBC (Auto) NONE SEEN (0-2) /HPF U Hyaline Cast (Auto) NEGATIVE (0-2) /LPF U Epithel Cells (Auto) OCCASIONAL (FEW) /HPF Urine Bacteria (Auto) NONE SEEN (NEGATIVE) /HPF U Non-Squamous Epi Cells RARE (FEW) /HPF Fatty Casts 0-2 (NEGATIVE) /LPF Granular Casts (Auto) NEGATIVE (NEGATIVE) /LPF Waxy Casts (Auto) 0-2 (NEGATIVE) /LPF RBC Casts (Auto) NEGATIVE (NEGATIVE) /LPF WBC Casts NEGATIVE (NEGATIVE) /LPF Other Casts (Auto) NEGATIVE (NEGATIVE) /LPF Urine Mucus (Auto) SLIGHT (NEGATIVE) /HPF Urine Culture Reflexed NO (NO) Urine Glucose NEGATIVE (NEGATIVE) mg/dL 01/22/18 Range/Units 19:00 WBC 5.8 (4.0-10.5) K/mm3 RBC 4.41 (4.1-5.4) M/mm3 Hgb 12.7 (12.0-16.0) gm/dl Hct 38.3 (35-47) % MCV 86.8 (78-100) fl MCH 28.8 (26-32) pg MCHC 33.2 (32-36) g/dl RDW 14.5 H (11.5-14.0) % Plt Count 257 (150-450) K/mm3 MPV 10.9 H (6-9.5) fl Gran % 62.8 (36.0-66.0) % Eos # (Auto) 0.24 (0-0.5) Absolute Lymphs (auto) 1.34 (1.0-4.6) Absolute Monos (auto) 0.52 (0.0-1.3) Lymphocytes % 23.3 L (24.0-44.0) % Monocytes % 9.0 (0.0-12.0) % Eosinophils % 4.2 (0.00-5.0) % Basophils % 0.7 (0.0-0.4) % Absolute Granulocytes 3.62 (1.4-6.9) Basophils # 0.04 (0-0.4) Sodium (137-145) mmol/L Potassium (3.5-5.1) mmol/L Chloride (98-107) mmol/L Carbon Dioxide (22-30) mmol/L Anion Gap (5-15) MEQ/L BUN (7-17) mg/dL Creatinine (0.52-1.04) mg/dL Estimated GFR ML/MIN Glucose (74-106) mg/dL Lactic Acid (0.4-2.0) Calcium (8.4-10.2) mg/dL Total Bilirubin (0.2-1.3) mg/dL AST (14-36) U/L ALT (0-35) U/L Alkaline Phosphatase (38-126) U/L Serum Total Protein (6.3-8.2) g/dL Albumin (3.5-5.0) g/dL Amylase (30-110) U/L Lipase (23-300) U/L Urine Color (YELLOW) Urine Appearance (CLEAR) Urine pH (5-6) Ur Specific [place] (1.005-1.025) Urine Protein (Negative) Urine Ketones (NEGATIVE) Urine Blood (0-5) West/ul Urine Nitrite (NEGATIVE) Urine Bilirubin (NEGATIVE) Urine Urobilinogen (0-1) mg/dL Ur Leukocyte Esterase (NEGATIVE) Urine WBC (Auto) (0-5) /HPF Urine RBC (Auto) (0-2) /HPF U Hyaline Cast (Auto) (0-2) /LPF U Epithel Cells (Auto) (FEW) /HPF Urine Bacteria (Auto) (NEGATIVE) /HPF U Non-Squamous Epi Cells (FEW) /HPF Fatty Casts (NEGATIVE) /LPF Granular Casts (Auto) (NEGATIVE) /LPF Waxy Casts (Auto) (NEGATIVE) /LPF RBC Casts (Auto) (NEGATIVE) /LPF WBC Casts (NEGATIVE) /LPF Other Casts (Auto) (NEGATIVE) /LPF Urine Mucus (Auto) (NEGATIVE) /HPF Urine Culture Reflexed (NO) Urine Glucose (NEGATIVE) mg/dL <TOUSSAINT,MAGDALENA F. - Last Filed: 01/22/18 18:54> - Progress Progress: improved <SHIV ESTRADA - Last Filed: 01/22/18 21:59> - Progress Progress Note: 01/22/18 18:54 i have reviewed pt hx, condition with dr. estrada. in addition, i have reviewed lab and xray results to follow up on. dr. estrada accepts pt in transfer of care at shift change. (MAGDALENA TOUSSAINT) 01/22/18 19:56 This is a 67-year-old white female initially seen by Dr. Toussaint. Patient arrives with complaint with rectal bleeding and mucus discharge from her rectum since today at 4:00 she states she had 4 episodes of mucus in her stool with blood he has had left-sided lower abdominal pain this all started around 4:00 this evening. She does state that she's had similar crampy pain since last November patient has received 1 L of normal saline, dye lauded, and Zofran per orders by Dr. Toussaint she appears to be comfortable at this time Past medical history includes migraines, arrhythmia, hypertension, asthma, bronchitis, diabetes type 2, arthritis, osteoarthritis, diverticulitis, gallbladder disease, pancreatitis Past surgical history includes left knee reconstruction 2 years ago, appendectomy, cholecystectomy, hernia repair, orthopedic surgery, hysterectomy, tonsillectomy, carpal tunnel, trigger finger, bladder sling, colonoscopy social history is a former smoker. Physical examination well-developed well-nourished white female she is alert oriented 3 she is pleasant and cooperative to examination. Head is atraumatic normocephalic. Eyes PERRLA EOMI fundi unremarkable. Ears TMs are intact bilaterally. Nose is clear. Throat is clear. Neck is supple. Lungs are clear. Heart regular rate and rhythm without murmur. Abdomen left lower quadrant tenderness positive bowel sounds negative masses negative rebound. Extremities full range of motion pulse equal symmetrical 2 over 4 Neuro cranial nerves II through XII are intact DTRs symmetrical 2 over 4 [place] Coma Scale is 15.. Labs CBC white blood cell 5.8 hemoglobin 12.7 hematocrit 38.3 platelets 257. Chemistry sodium 139 potassium 3.8 chloride 106 bicarbonate 27 BUN 18 creatinine 0.59 glucose 105. Impression left lower quadrant pain. GI bleed. Plan patient has an order for a CT of the abdomen will let this be continued we' ll consider rectal examination. Patient appears to be stable does not appear to be in acute distress at this time. Will proceed once the results are available. Patient's CBC, CMP, normal. Rectal examination normal sphincter tone no stool obtained. CT abdomen stable sigmoid diverticulosis remaining abdomen and pelvis negative. Patient's orthostatic vital signs are stable. Awaiting urinalysis. Urinalysis within normal limits. We'll discharge patient. Will place patient on Flagyl 500 mg orally 3 times a day (patient with history of diverticulitis) diverticulosis on CT exam, and left lower quadrant tenderness. Patient has pain medications at home. Will place patient on clear fluids. 01/22/18 21:02 01/22/18 21:56 (SHIV ESTRADA) <MAGDALENA TOUSSAINT - Last Filed: 01/22/18 18:54> - Departure Time of Disposition: 21:57 Departure Disposition: Home Critical Care Time: No <SHIV ESTRADA - Last Filed: 01/22/18 21:59> - Departure Clinical Impression: Rectal bleeding, Left lower quadrant pain, History of diverticulitis Condition: Fair Referrals: WENDY WILLS [Primary Care Provider] - Instructions: Gastrointestinal Bleeding (DC) Additional Instructions: Return home. Plenty of fluids. Flagyl 500 mg orally 3 times a day for 10 days. Pain medications as prescribed by your family doctor. Clear fluids only 24-48 hours if abdominal pain nausea or vomiting or diarrhea. Follow-up with your family doctor call tomorrow and arrange follow-up appointment. Return for acute distress or for severe symptoms. Prescriptions: Metronidazole 500 mg [Flagyl 500 MG] 500 mg PO TID #30 tablet
[2018-01-22] MEDS ORDERED: Sodium Chloride 0.9% 1000 ML 1,000 ML IV STA (18:24)
[2018-01-22] MEDS ORDERED: Sodium Chloride 0.9% 1000 ML 1,000 ML ONE (18:57)
[2018-01-22] MEDS ORDERED: Hydromorphone 1 mg/ml Ampule IV ONE (19:08)
[2018-01-22] MEDS ORDERED: Zofran 4 MG/2 ML VIAL IV ONE (19:09)
[2018-01-22 19:18] LABS: BASOPHIL % 0.7 % (0.0-0.4); Basophil (Absolute #) 0.04 (0-0.4); Eosinophil % 4.2 % (0.00-5.0); Eosinophil (Absolute #) 0.24 (0-0.5); Granulocyte Absolute (ANC) 3.62 (1.4-6.9); Granulocytes % 62.8 % (36.0-66.0); Hematocrit 38.3 % (35-47); Hemoglobin 12.7 gm/dl (12.0-16.0); Lymphocyte (Absolute #) 1.34 (1.0-4.6); Lymphocytes % 23.3 % (24.0-44.0); Mean Cell Volume 86.8 fl (78-100); Mean Corpuscular Hemoglobin 28.8 pg (26-32); Mean Corpuscular Hgb Concent. 33.2 g/dl (32-36); Mean Platelet Volume 10.9 fl (6-9.5); Monocyte (Absolute #) 0.52 (0.0-1.3); Platelet Count 257 K/mm3 (150-450); Red Blood Count 4.41 M/mm3 (4.1-5.4); Red Cell Distribution Width 14.5 % (11.5-14.0); White Blood Count 5.8 K/mm3 (4.0-10.5)
[2018-01-22] MEDS ORDERED: Zofran 4 MG/2 ML VIAL ONE (19:30)
[2018-01-22] MEDS ORDERED: Hydromorphone 1 mg/ml Ampule ONE (19:30)
[2018-01-22 19:33] LABS: ALBUMIN 3.8 g/dL (3.5-5.0); ALKALINE PHOSPHATASE 84 U/L (38-126); AMYLASE 37 U/L (30-110); ANION GAP 10.5 MEQ/L (5-15); BLOOD UREA NITROGEN 18 mg/dL (7-17); CHLORIDE 106 mmol/L (98-107); Calcium 9.3 mg/dL (8.4-10.2); Carbon Dioxide 27 mmol/L (22-30); Creatinine 1 0.59 mg/dL (0.52-1.04); Glucose 105 mg/dL (74-106); LIPASE 98 U/L (23-300); Potassium 3.8 mmol/L (3.5-5.1); SGOT/AST 21 U/L (14-36); SGPT/ALT 20 U/L (0-35); SODIUM 139 mmol/L (137-145); Total Protein 6.1 g/dL (6.3-8.2)
[2018-01-22 21:29] LABS: Appearance CLEAR (CLEAR); Leukocyte Esterase NEGATIVE (NEGATIVE); Nitrite NEGATIVE (NEGATIVE); Specific Gravity 1.005 (1.005-1.025)
[2018-01-22 21:30] LABS: Bilirubin NEGATIVE (NEGATIVE); Blood NEGATIVE Ery/ul (0-5); Glucose NEGATIVE (NEGATIVE); Ketones NEGATIVE (NEGATIVE); Protein,Urine Dip NEGATIVE (Negative); Urobilinogen NORMAL mg/dL (0-1)
[2018-01-22] MEDS ORDERED: Flagyl 500 MG PO ONE (22:00)
[2018-01-22] MEDS ORDERED: Flagyl 500 MG ONE (22:07)
[2018-01-22 22:17] VITALS: BP 135/57; PULSE 68; O2SAT 99
--- NOTE | 2018-01-23 09:18 | XRAY ---
Indication: Rectal bleeding and mucous discharge. History diverticulitis and pancreatitis. Multiple contiguous axial images obtained through the abdomen and pelvis using 80 cc Isovue 370 contrast only. Comparison: August 16, 2015. Lung bases again demonstrates bibasilar dependent atelectasis. No infiltrate or effusion. Heart is not enlarged. Interval hiatal hernia surgical repair. Noncontrasted stomach and bowel loops appear nonobstructed. Stable minimal sigmoid diverticulosis without diverticulitis. Previous reported appendectomy, cholecystectomy, and hysterectomy. No free fluid/air. Again a few tiny hepatic/splenic calcified granulomas. Remaining liver, pancreas, spleen, adrenal glands, kidneys, ureters, and bladder appear unremarkable. There remains minimal aortoiliac calcifications. No AAA or pathologic retroperitoneal lymphadenopathy. Osseous structures intact again with mild degenerative changes throughout the spine and fusion of the right SI joint. No ventral or inguinal hernias. Impression: 1. Stable sigmoid diverticulosis and evidence for old granulomatous disease. 2. Remaining CT abdomen/pelvis with contrast exam is negative. CT DI 23.64
== END 2018-01-22 22:23 | disposition home or self-care (01) ==
LOC: ED 16:45
DX: K62.5 Hemorrhage of anus and rectum (principal); R10.32 Left lower quadrant pain; Z79.899 Other long term (current) drug therapy; Z87.19 Personal history of other diseases of the digestive system
CPT/HCPCS: 36000; 36415; 74177; 80053; 81001; 82150; 83605; 83690; 85025; 96360; 96374; 96375; 99284; A9270; J1170; J2405

== ENCOUNTER 2018-08-26 15:30 | Emergency (ER) | payer MEDICARE, OTHER ==
--- NOTE | 2018-08-26 15:33 | ERPHSYRPT ---
- History of Present Illness Time Seen by Provider: 08/26/18 15:33 Source: patient Exam Limitations: no limitations Physician History: 68 y/o white female presents with a couple of days of headache and dizziness. sx no better today. pt recently had added medications for her ulcerative colitis. pt states she may have uti. no vomiting but nausea. pt has chronic intermittent diarrhea. no abd pain. no head injury Timing/Duration: day(s) (2 days) Severity: moderate Character of Deficits: none Deficits: no difficulties Baseline/Normal Cognition: alert 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 Current Cognition: alert 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 Baseline Gait: walks w/o assistance Associated Symptoms: nausea Allergies/Adverse Reactions: clarithromycin [From Biaxin] Allergy (Severe, Verified 08/26/18 15:48) Hives Coconut Allergy (Severe, Verified 08/26/18 15:48) Difficulty Breathing green dye *RETIRED-07/03/12 [Green Dye] Allergy (Mild, Verified 08/26/18 15:48) Swelling swelling ears red dye [Red Dye] Allergy (Mild, Verified 08/26/18 15:48) Swelling ears swell levofloxacin [From Levaquin] Adverse Reaction (Mild, Verified 08/26/18 15:48) Joint Aches Home Medications: Zolpidem Tartrate [Ambien] 10 mg PO HSPRN PRN 08/16/15 [History] Spironolactone 25 mg [Aldactone 25 MG] 25 mg PO 1800 11/16/17 [History] Budesonide [Budesonide EC] 3 mg DAILY 08/26/18 [History] Fexofenadine HCl 180 mg DAILY 08/26/18 [History] Mesalamine 2.2 gm DAILY 08/26/18 [History] Hx Tetanus, Diphtheria Vaccination/Date Given: Yes Hx Influenza Vaccination/Date Given: No Hx Pneumococcal Vaccination/Date Given: No - Review of Systems Constitutional: No Symptoms Eyes: No Symptoms Ears, Nose, & Throat: No Symptoms Respiratory: No Symptoms Cardiac: No Symptoms Abdominal/Gastrointestinal: Nausea Genitourinary Symptoms: No Symptoms Musculoskeletal: No Symptoms Skin: No Symptoms Neurological: Dizziness, Headache Psychological: No Symptoms Endocrine: No Symptoms Hematologic/Lymphatic: No Symptoms Immunological/Allergic: No Symptoms All Other Systems: Reviewed and Negative - Past Medical History Pertinent Past Medical History: Yes Neurological History: Migraines ENT History: No Pertinent History Cardiac History: Arrhythmia, Hypertension Respiratory History: Asthma, Bronchitis Endocrine Medical History: Diabetes Type II Musculoskeletal History: Arthritis, Osteoarthritis, Other GI Medical History: Diverticulitis, Gallbladder Disease, Pancreatitis History: No Pertinent History Psycho-Social History: No Pertinent History Female Reproductive Disorders: No Pertinent History Other Medical History: LEFT TKR 2 YEARS AGO. RECENT UTI - Past Surgical History Past Surgical History: Yes Neuro Surgical History: No Pertinent History Cardiac: No Pertinent History Respiratory: No Pertinent History Gastrointestinal: Appendectomy, Cholecystectomy, Hernia Repair Genitourinary: No Pertinent History Musculoskeletal: No Pertinent History, Joint Replacement, Orthopedic Surgery Female Surgical History: Hysterectomy, Other Other Surgical History: tonsilectomy, carpal tunnel, trigger finger X3, BLADDER SLING, colorectal - Social History Smoking Status: Former smoker How long have you smoked: 20 years Exposure to second hand smoke: No Drug Use: none Patient Lives Alone: No - Nursing Vital Signs Nursing Vital Signs: Initial Vital Signs Temperature 97.5 F 08/26/18 15:34 Pulse Rate 59 L 08/26/18 15:34 Respiratory Rate 14 08/26/18 15:34 Blood Pressure 165/75 08/26/18 15:34 O2 Sat by Pulse Oximetry 96 08/26/18 15:34 Pain Scale Pain Intensity 2 - [place] Coma Scale Best Eye Response (Agueda): (4) open spontaneously Best Verbal Response ([place]): (5) oriented Best Motor Response ([place]): (6) obeys commands Agueda Total: 15 - Physical Exam General Appearance: mild distress, alert, anxiety Eye Exam: bilateral eye: normal inspection, PERRL, EOMI Ears, Nose, Throat Exam: normal ENT inspection, moist mucous membranes Neck Exam: normal inspection, non-tender, supple, full range of motion Respiratory: normal breath sounds, lungs clear, airway intact, No chest tenderness, No respiratory distress Cardiovascular: regular rate/rhythm, normal heart sounds, normal peripheral pulses Gastrointestinal: soft, normal bowel sounds, No tenderness, No guarding, No rebound Pelvic Exam: not done Rectal Exam: not done Back Exam: normal inspection, normal range of motion, No CVA tenderness, No vertebral tenderness Extremity Exam: normal inspection, normal range of motion, pelvis stable Mental Status: alert, 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, 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 Exam: normal hearing, normal speech, PERRL Coordination/Gait: normal finger to nose, normal gait, normal cerebellar function Motor/Sensory: no motor deficit, no sensory deficit, no pronator drift Skin Exam: normal color, warm, dry SpO2 Interpretation: normal O2 Delivery: Room Air - Course Nursing assessment & vital signs reviewed: Yes EKG Interpreted by Me: RATE (51), Sinus Rhythm, NORMAL AXIS, NORMAL INTERVALS, NORMAL QRS, Other (no sig change from comparison ekg dated 11/04/17) Ordered Tests: Active Orders 24 hr Category Date Time Status Pilates Instructor STAT Care 08/26/18 15:47 Active EKG-ER Only STAT Care 08/26/18 15:43 Active IV Insertion STAT Care 08/26/18 15:43 Active HEAD WITHOUT CONTRAST [CT] Stat Exams 08/26/18 15:46 Completed CBC W DIFF Stat Lab 08/26/18 16:00 Completed CMP Stat Lab 08/26/18 16:00 Completed UA W/RFX UR CULTURE Stat Lab 08/26/18 16:00 Completed Medication Summary Discontinued Medications Generic Name Dose Route Start Last Admin Trade Name Kirillq PRN Reason Stop Dose Admin Hydromorphone HCl 1 mg 08/26/18 17:14 08/26/18 17:19 Hydromorphone 1 Mg/Ml Ampule IV 08/26/18 17:15 1 mg STAT ONE Administration Hydromorphone HCl Confirm 08/26/18 17:16 Hydromorphone 1 Mg/Ml Ampule Administered 08/26/18 17:17 Dose 1 mg .ROUTE .STK-MED ONE Sodium Chloride 1,000 mls @ 999 mls/hr 08/26/18 15:43 08/26/18 17:05 Sodium Chloride 0.9% 1000 Ml IV 08/26/18 16:43 Infused .Q1H1M STA Infusion Sodium Chloride Confirm 08/26/18 16:02 Sodium Chloride 0.9% 1000 Ml Administered 08/26/18 16:03 Dose 1,000 mls @ ud .ROUTE .STK-MED ONE Ondansetron HCl 4 mg 08/26/18 15:43 08/26/18 16:03 Zofran 4 Mg/2 Ml Vial IV 08/26/18 15:44 4 mg STAT ONE Administration Ondansetron HCl Confirm 08/26/18 16:02 Zofran 4 Mg/2 Ml Vial Administered 08/26/18 16:03 Dose 4 mg .ROUTE .STK-MED ONE Lab/Rad Data: Laboratory Result Diagrams 08/26/18 16:00 08/26/18 16:00 Laboratory Results 08/26/18 08/26/18 08/26/18 Range/Units 16:00 16:00 16:00 WBC 6.0 (4.0-10.5) K/mm3 RBC 4.67 (4.1-5.4) M/mm3 Hgb 14.2 (12.0-16.0) gm/dl Hct 42.2 (35-47) % MCV 90.4 (78-100) fl MCH 30.4 (26-32) pg MCHC 33.6 (32-36) g/dl RDW 14.5 H (11.5-14.0) % Plt Count 168 (150-450) K/mm3 MPV 11.1 H (6-9.5) fl Gran % 68.2 H (36.0-66.0) % Eos # (Auto) 0.11 (0-0.5) Absolute Lymphs (auto) 1.20 (1.0-4.6) Absolute Monos (auto) 0.57 (0.0-1.3) Lymphocytes % 20.0 L (24.0-44.0) % Monocytes % 9.5 (0.0-12.0) % Eosinophils % 1.8 (0.00-5.0) % Basophils % 0.5 (0.0-0.4) % Absolute Granulocytes 4.10 (1.4-6.9) Basophils # 0.03 (0-0.4) Sodium 141 (137-145) mmol/L Potassium 3.8 (3.5-5.1) mmol/L Chloride 104 (98-107) mmol/L Carbon Dioxide 29 (22-30) mmol/L Anion Gap 11.3 (5-15) MEQ/L BUN 15 (7-17) mg/dL Creatinine 0.71 (0.52-1.04) mg/dL Estimated GFR > 60.0 ML/MIN Glucose 144 H (74-106) mg/dL Calcium 9.1 (8.4-10.2) mg/dL Total Bilirubin 0.60 (0.2-1.3) mg/dL AST 23 (14-36) U/L ALT 28 (0-35) U/L Alkaline Phosphatase 75 (38-126) U/L Serum Total Protein 6.9 (6.3-8.2) g/dL Albumin 3.8 (3.5-5.0) g/dL Urine Color YELLOW (YELLOW) Urine Appearance CLEAR (CLEAR) Urine pH 6.0 (5-6) Ur Specific [place] 1.009 (1.005-1.025) Urine Protein NEGATIVE (Negative) Urine Ketones NEGATIVE (NEGATIVE) Urine Blood NEGATIVE (0-5) [place] Urine Nitrite NEGATIVE (NEGATIVE) Urine Bilirubin NEGATIVE (NEGATIVE) Urine Urobilinogen NEGATIVE (0-1) mg/dL Ur Leukocyte Esterase NEGATIVE (NEGATIVE) Urine WBC (Auto) 0-2 (0-5) /HPF Urine RBC (Auto) 0-2 (0-2) /HPF U Epithel Cells (Auto) NONE (FEW) /HPF Urine Bacteria (Auto) RARE (NEGATIVE) /HPF Urine Mucus (Auto) SLIGHT (NEGATIVE) /HPF Urine Culture Reflexed NO (NO) Urine Glucose NEGATIVE (NEGATIVE) mg/dL - Progress Progress: improved, re-examined Progress Note: 08/26/18 16:51 ct head- no acute intracranial abnormalities 08/26/18 18:14 dizziness and headache sig improved. pt states she is ready to go home Counseled pt/family regarding: lab results, diagnosis, need for follow-up, rad results - Departure Departure Disposition: Home Clinical Impression: Dizziness, Headache Condition: Stable Critical Care Time: No Referrals: WENDY WILLS [Primary Care Provider] - Additional Instructions: drink plenty of fluids. follow up tomorrow with your primary doctor for further management
[2018-08-26] MEDS ORDERED: Zofran 4 MG/2 ML VIAL IV ONE (15:43)
[2018-08-26] MEDS ORDERED: Sodium Chloride 0.9% 1000 ML 1,000 ML IV STA (15:43)
[2018-08-26 15:47] VITALS: O2SAT 96
[2018-08-26] MEDS ORDERED: Zofran 4 MG/2 ML VIAL ONE (16:02)
[2018-08-26] MEDS ORDERED: Sodium Chloride 0.9% 1000 ML 1,000 ML ONE (16:02)
[2018-08-26 16:14] LABS: BASOPHIL % 0.5 % (0.0-0.4); Basophil (Absolute #) 0.03 (0-0.4); Eosinophil % 1.8 % (0.00-5.0); Eosinophil (Absolute #) 0.11 (0-0.5); Granulocytes % 68.2 % (36.0-66.0); Hematocrit 42.2 % (35-47); Hemoglobin 14.2 gm/dl (12.0-16.0); Mean Cell Volume 90.4 fl (78-100); Mean Corpuscular Hemoglobin 30.4 pg (26-32); Mean Corpuscular Hgb Concent. 33.6 g/dl (32-36); Mean Platelet Volume 11.1 fl (6-9.5); Monocytes % 9.5 % (0.0-12.0); Platelet Count 168 K/mm3 (150-450); Red Blood Count 4.67 M/mm3 (4.1-5.4); Red Cell Distribution Width 14.5 % (11.5-14.0)
[2018-08-26 16:21] LABS: Appearance CLEAR (CLEAR); Bacteria RARE /HPF (NEGATIVE); Bilirubin NEGATIVE (NEGATIVE); Blood NEGATIVE Ery/ul (0-5); Glucose NEGATIVE (NEGATIVE); Ketones NEGATIVE (NEGATIVE); Leukocyte Esterase NEGATIVE (NEGATIVE); Mucus SLIGHT /HPF (NEGATIVE); Nitrite NEGATIVE (NEGATIVE); Protein,Urine Dip NEGATIVE (Negative); RBC 0-2 /HPF (0-2); Specific Gravity 1.009 (1.005-1.025); Urobilinogen NEGATIVE mg/dL (0-1); WBC 0-2 /HPF (0-5)
[2018-08-26 16:29] LABS: ALBUMIN 3.8 g/dL (3.5-5.0); ALKALINE PHOSPHATASE 75 U/L (38-126); ANION GAP 11.3 MEQ/L (5-15); BLOOD UREA NITROGEN 15 mg/dL (7-17); CHLORIDE 104 mmol/L (98-107); Calcium 9.1 mg/dL (8.4-10.2); Carbon Dioxide 29 mmol/L (22-30); Creatinine 1 0.71 mg/dL (0.52-1.04); Glucose 144 mg/dL (74-106); Potassium 3.8 mmol/L (3.5-5.1); SGOT/AST 23 U/L (14-36); SGPT/ALT 28 U/L (0-35); SODIUM 141 mmol/L (137-145); Total Protein 6.9 g/dL (6.3-8.2)
--- NOTE | 2018-08-26 16:41 | XRAY ---
Indication: Dizziness. Multiple contiguous axial images obtained through the head without contrast. Comparison: None Age-appropriate global atrophy and minimal periventricular degenerative micro-ischemia. Left basal ganglia demonstrates small remote infarct measuring 9 x 14 mm. A few additional tiny bilateral basal ganglia remote lacunar infarcts. No acute intracranial hemorrhage, abnormal extra-axial fluid collection, or mass effect. Fourth ventricle is midline without hydrocephalus. Gonzalez-white matter differentiation preserved. Bony calvarium intact. Partial opacification right mastoid air cells presumed inflammatory. Impression: 1. Normal aging brain including atrophy and degenerative micro-ischemia. 2. Bilateral basal ganglia remote infarcts. 3. No acute intracranial abnormalities. 4. Partial opacification right mastoid air cells presumed inflammatory. CTDI 70.80
[2018-08-26] MEDS ORDERED: Hydromorphone 1 mg/ml Ampule IV ONE (17:14)
[2018-08-26] MEDS ORDERED: Hydromorphone 1 mg/ml Ampule ONE (17:16)
[2018-08-26 18:13] VITALS: BP 125/55; PULSE 60
== END 2018-08-26 18:32 | disposition home or self-care (01) ==
LOC: ED 15:30
DX: R42 Dizziness and giddiness (principal); R51 Headache
CPT/HCPCS: 36000; 36415; 70450; 80053; 81001; 85025; 93005; 93041; 96360; 96374; 96375; 99284; J1170; J2405

== ENCOUNTER 2018-10-23 00:14 | Emergency (ER) | payer MEDICARE, OTHER ==
[2018-10-23 01:04] VITALS: O2SAT 97
--- NOTE | 2018-10-23 01:14 | ERPHSYRPT ---
- History of Present Illness Time Seen by Provider: 10/23/18 01:00 Source: patient Exam Limitations: no limitations Patient Subjective Stated Complaint: pt states she tripped over her dog and landed on her knees, having increased pain in her lt knee Triage Nursing Assessment: pt alert and oriented, answers questions approp. pt back per wheelchair. transfer from wheelchair per self with limping gait noted. respirations nonlabored with lungs cta. bruising and swelling noted to lt knee. small bruise noted to rt knee- pt states very minimal pain to rt knee. pedal pulse and cap refill to bilat lwer ext wnl. 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 pt concerned because bilat knee replacement and left knee hurts and looks different than right side. Method of Injury: fell Occurred: just prior to arrival Quality: constant, aching Severity of Pain-Max: mild Severity of Pain-Current: mild Lower Extremities Pain: knee: left Modifying Factors: Improves With: movement Associated Symptoms: other (hurts to bear weight) Allergies/Adverse Reactions: clarithromycin [From Biaxin] Allergy (Severe, Verified 10/23/18 01:09) Hives Coconut Allergy (Severe, Verified 10/23/18 01:09) Difficulty Breathing green dye *RETIRED-07/03/12 [Green Dye] Allergy (Mild, Verified 10/23/18 01:09) Swelling swelling ears red dye [Red Dye] Allergy (Mild, Verified 10/23/18 01:09) Swelling ears swell levofloxacin [From Levaquin] Adverse Reaction (Mild, Verified 10/23/18 01:09) Joint Aches Home Medications: Zolpidem Tartrate [Ambien] 10 mg PO HSPRN PRN 08/16/15 [History] Spironolactone 25 mg [Aldactone 25 MG] 25 mg PO 1800 11/16/17 [History] Budesonide [Budesonide EC] 3 mg DAILY 08/26/18 [History] Fexofenadine HCl 180 mg DAILY 08/26/18 [History] Mesalamine 2.2 gm DAILY 08/26/18 [History] Hx Tetanus, Diphtheria Vaccination/Date Given: Yes Hx Influenza Vaccination/Date Given: No Hx Pneumococcal Vaccination/Date Given: No Immunizations Up to Date: Yes - Review of Systems Constitutional: No Symptoms Eyes: No Symptoms Ears, Nose, & Throat: No Symptoms Respiratory: No Symptoms Cardiac: No Symptoms Abdominal/Gastrointestinal: No Symptoms Genitourinary Symptoms: No Symptoms Musculoskeletal: Fall, Injury (left ant knee) Skin: No Symptoms Neurological: No Symptoms Psychological: No Symptoms Endocrine: No Symptoms Hematologic/Lymphatic: No Symptoms Immunological/Allergic: No Symptoms All Other Systems: Reviewed and Negative - Past Medical History Pertinent Past Medical History: Yes Neurological History: Migraines ENT History: No Pertinent History Cardiac History: Arrhythmia, Hypertension Respiratory History: Asthma, Bronchitis Endocrine Medical History: Diabetes Type II Musculoskeletal History: Arthritis, Osteoarthritis, Other GI Medical History: Diverticulitis, Gallbladder Disease, Pancreatitis History: No Pertinent History Psycho-Social History: No Pertinent History Female Reproductive Disorders: No Pertinent History Other Medical History: bilat total knees - Past Surgical History Past Surgical History: Yes Neuro Surgical History: No Pertinent History Cardiac: No Pertinent History Respiratory: No Pertinent History Gastrointestinal: Appendectomy, Cholecystectomy, Hernia Repair Genitourinary: No Pertinent History Musculoskeletal: No Pertinent History, Joint Replacement, Orthopedic Surgery Female Surgical History: Hysterectomy, Other Other Surgical History: tonsilectomy, carpal tunnel, trigger finger X3, BLADDER SLING, colorectal, SI fusion - Social History Smoking Status: Former smoker How long have you smoked: 20 years Exposure to second hand smoke: No Drug Use: none Patient Lives Alone: Yes - Nursing Vital Signs Nursing Vital Signs: Initial Vital Signs Temperature 98.3 F 10/23/18 00:53 Pulse Rate 66 10/23/18 00:53 Respiratory Rate 18 10/23/18 00:53 Blood Pressure 151/63 10/23/18 00:53 O2 Sat by Pulse Oximetry 97 10/23/18 00:53 Pain Scale Pain Intensity 7 - Physical Exam General Appearance: no apparent distress, alert, anxiety Eyes, Ears, Nose, Throat Exam: normal ENT inspection, moist mucous membranes Neck Exam: normal inspection, non-tender, supple, full range of motion Cardiovascular/Respiratory Exam: chest non-tender Gastrointestinal/Abdominal Exam: non-tender Back Exam: normal inspection, normal range of motion, No CVA tenderness, No vertebral tenderness Hips Exam: bilateral: non-tender, normal inspection, normal range of motion, no evidence of injury Legs Exam: bilateral leg: non-tender, normal inspection, normal range of motion , no evidence of injury Knees Exam: right knee: non-tender, normal inspection, normal range of motion, no evidence of injury, left knee: bone tenderness, deformity, pain, soft tissue tenderness, swelling Ankle Exam: bilateral ankle: non-tender, normal inspection, normal range of motion, no evidence of injury Foot Exam: bilateral foot: non-tender, normal inspection, normal range of motion , no evidence of injury Neuro/Tendon Exam: normal sensation, normal motor functions, normal tendon functions Mental Status Exam: alert, 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, cooperative Skin Exam: normal color, warm, dry SpO2 Interpretation: normal SpO2: 97 O2 Delivery: Room Air Ordered Tests: Active Orders 24 hr Category Date Time Status KNEE (3 VIEWS) Stat Exams 10/23/18 00:47 Taken - Progress Progress: unchanged Progress Note: 10/23/18 01:56 xray left knee-no acute fx or dislocation. knee replacement in proper position Counseled pt/family regarding: diagnosis, need for follow-up, rad results - Departure Departure Disposition: Home Clinical Impression: Knee contusion Condition: Stable Critical Care Time: No Referrals: WENDY WILLS [Primary Care Provider] - Additional Instructions: ice pack to area 3 times daily for 2 days. tylenol and ibuprofen for pain. follow up with primary doctor for persistent symptoms
[2018-10-23 02:02] VITALS: BP 125/85; PULSE 56
--- NOTE | 2018-10-23 09:05 | XRAY ---
Indication: Pain and swelling following fall. Comparison: None 3 views of the left knee demonstrates anterior soft tissue swelling and total knee arthroplasty with intact articulation/prosthesis. No other bony, articular, or soft tissue abnormalities. Comment: Preliminary interpretation was made by [facility]. No discrepancy.
== END 2018-10-23 02:13 | disposition home or self-care (01) ==
LOC: ED 00:14
DX: S80.02XA Contusion of left knee, initial encounter (principal); W01.198A Fall on same level from slipping, tripping and stumbling with subsequent striking against other object, initial encounter; Y93.K9 Activity, other involving animal care; M25.562 Pain in left knee
CPT/HCPCS: 73562; 99283

== ENCOUNTER 2019-02-09 07:38 | Emergency (ER) | payer MEDICARE, OTHER ==
--- NOTE | 2019-02-09 08:05 | ERPHSYRPT ---
- History of Present Illness Time Seen by Provider: 02/09/19 07:40 Source: patient Exam Limitations: no limitations Physician History: patient is a 68-year-old white female who has had a decline in her overall health over the past year. She was diagnosed with microscopic colitis colitis in November of 2017 and has seen several physicians for that and she also complains of generalized weakness and not feeling well she went in hospital [facility] 3 days ago and had a CT of the chest done with an abnormal chest x-ray was found which shows a lung mass in the right upper lobe 1.5 cm probably primary lung CA.. She has had generalized aching cough and wheezing. She reports that she's also been falling frequently over the past 10 days she has fallen 3 times. She has noted excessive bruising from her fall. Her cough is nonproductive.she has had some abdominal pain.she was also found to have a heart rate of 48 when she arrived at [facility] as well and was told at one point she would probably need a pacemaker. Allergies/Adverse Reactions: clarithromycin [From Biaxin] Allergy (Severe, Verified 10/23/18 01:09) Hives Coconut Allergy (Severe, Verified 10/23/18 01:09) Difficulty Breathing green dye *RETIRED-07/03/12 [Green Dye] Allergy (Mild, Verified 10/23/18 01:09) Swelling swelling ears red dye [Red Dye] Allergy (Mild, Verified 10/23/18 01:09) Swelling ears swell levofloxacin [From Levaquin] Adverse Reaction (Mild, Verified 10/23/18 01:09) Joint Aches Home Medications: Zolpidem Tartrate [Ambien] 10 mg PO HSPRN PRN 08/16/15 [History] Spironolactone 25 mg [Aldactone 25 MG] 25 mg PO 1800 11/16/17 [History] Budesonide [Budesonide EC] 3 mg DAILY 08/26/18 [History] Fexofenadine HCl 180 mg DAILY 08/26/18 [History] Diphenoxylate HCl/Atropine [Diphenoxylate-Atrop 2.5-0.025] 1 ea DAILY 02/09/19 [ History] Escitalopram Oxalate 10 mg [Lexapro 10 MG] 10 mg DAILY 02/09/19 [History] Hyoscyamine Sulfate 0.125 mg [Anaspaz 0.125 mg] 0.125 mg QID 02/09/19 [ History] Ondansetron ODT 4 MG [Zofran Odt 4 mg] 1 ea Q6H PRN PRN 02/09/19 [History] Rosuvastatin Calcium [Crestor] 10 mg DAILY 02/09/19 [History] Hx Tetanus, Diphtheria Vaccination/Date Given: Yes Hx Influenza Vaccination/Date Given: No Hx Pneumococcal Vaccination/Date Given: No - Review of Systems Constitutional: Chills, Fatigue, Lethargy, Weakness Eyes: No Symptoms Ears, Nose, & Throat: No Symptoms Respiratory: Cough, Dyspnea, Dyspnea on Exertion (WILSON), Wheezing Cardiac: Palpitations Abdominal/Gastrointestinal: Nausea Genitourinary Symptoms: No Symptoms Musculoskeletal: Fall Skin: Other Neurological: Gait Changes, Lethargy Hematologic/Lymphatic: Easy Bruising Immunological/Allergic: No Symptoms All Other Systems: Reviewed and Negative - Past Medical History Pertinent Past Medical History: Yes Neurological History: No Pertinent History ENT History: No Pertinent History Cardiac History: Other Respiratory History: Other Endocrine Medical History: Other Musculoskeletal History: Osteoarthritis GI Medical History: Diverticulitis, Gallbladder Disease, Pancreatitis History: No Pertinent History Psycho-Social History: No Pertinent History Female Reproductive Disorders: No Pertinent History Other Medical History: bruised liver, kidney disease in the past, seasonal allergies, tri- and bi-giminie - Past Surgical History Past Surgical History: Yes Neuro Surgical History: No Pertinent History Cardiac: No Pertinent History Respiratory: No Pertinent History Gastrointestinal: Appendectomy, Cholecystectomy, Hernia Repair Genitourinary: No Pertinent History Musculoskeletal: No Pertinent History, Joint Replacement, Orthopedic Surgery Female Surgical History: Hysterectomy, Other Other Surgical History: tonsilectomy, carpal tunnel, trigger finger X3, BLADDER SLING, colorectal, SI fusion - Social History Smoking Status: Former smoker How long have you smoked: 20 years Exposure to second hand smoke: No Drug Use: none Patient Lives Alone: Yes - Nursing Vital Signs Nursing Vital Signs: Initial Vital Signs Temperature 98.5 F 02/09/19 07:44 Pulse Rate 84 02/09/19 07:44 Respiratory Rate 22 02/09/19 07:44 Blood Pressure 160/69 02/09/19 07:44 O2 Sat by Pulse Oximetry 94 L 02/09/19 07:44 Pain Scale Pain Intensity 4 - Physical Exam General Appearance: no apparent distress, mild distress, alert Eye Exam: PERRL/EOMI, eyes nml inspection Ears, Nose, Throat Exam: normal ENT inspection, TMs normal, pharynx normal, moist mucous membranes Neck Exam: normal inspection, non-tender, supple, full range of motion Respiratory Exam: lungs clear, rhonchi, wheezing, No respiratory distress Cardiovascular Exam: regular rate/rhythm, normal heart sounds, normal peripheral pulses Gastrointestinal/Abdomen Exam: soft, normal bowel sounds, No tenderness, No mass Back Exam: normal inspection, normal range of motion, No CVA tenderness, No vertebral tenderness Extremity Exam: normal inspection, normal range of motion, pelvis stable Neurologic Exam: alert, 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, cooperative, normal mood/affect, nml cerebellar function, nml station & gait, sensation nml, No motor deficits Skin Exam: warm, dry, ecchymosis, No rash Lymphatic Exam: No adenopathy SpO2 Interpretation: normal O2 Delivery: Room Air - CT Exams Head CT Interpretation: Other (CT the head negative) Chest CT Interpretation: Other (CTA of the chest was negative for pulmonary emboli this was done even though there was a CT done at [facility] a few days prior it was done with the time bolus.) Abdomen/Pelvis CT Interpretation: Other (CT of the chest and abdominal contrast was done due to abdominal intermittently and chronic diarrhea. It was essentially negative) Ordered Tests: Active Orders 24 hr Category Date Time Status EKG-ER Only STAT Care 02/09/19 08:11 Active ABDOMEN AND PELVIS W CONTRAST [CT] Stat Exams 02/09/19 10:11 Taken CHEST 2 VIEWS (PA AND LAT) Stat Exams 02/09/19 08:11 Taken CHEST WITH CONTRAST [CT] Stat Exams 02/09/19 10:10 Taken HEAD WITHOUT CONTRAST [CT] Stat Exams 02/09/19 08:11 Taken BLOOD CULTURE Stat Lab 02/09/19 08:37 Received CBC W DIFF Stat Lab 02/09/19 08:15 Completed CMP Stat Lab 02/09/19 08:15 Completed D-DIMER QUANTITATION Stat Lab 02/09/19 08:15 Completed Lactic Acid Stat Lab 02/09/19 08:11 Completed MAGNESIUM Stat Lab 02/09/19 08:15 Completed NT PRO BNP Stat Lab 02/09/19 08:15 Completed PROTIME WITH INR Stat Lab 02/09/19 08:15 Completed PTT Stat Lab 02/09/19 08:15 Completed SED RATE [Erythrocyte Sedimentation Rate] Stat Lab 02/09/19 08:15 Completed TROPONIN Q3H Lab 02/09/19 08:15 Completed TROPONIN Q3H Lab 02/09/19 08:15 Received TROPONIN Q3H Lab 02/09/19 17:15 Ordered TROPONIN Q3H Lab 02/09/19 20:15 Ordered UA W/RFX UR CULTURE Stat Lab 02/09/19 10:29 Completed Medication Summary Generic Name Dose Route Start Last Admin Trade Name Freq PRN Reason Stop Dose Admin Sodium Chloride 1,000 mls @ 100 mls/hr 02/09/19 08:15 02/09/19 08:25 Sodium Chloride 0.9% 1000 Ml IV 03/11/19 08:14 100 mls/hr .Q10H BENI Administration Discontinued Medications Generic Name Dose Route Start Last Admin Trade Name Freq PRN Reason Stop Dose Admin Fentanyl Citrate 50 mcg 02/09/19 08:16 02/09/19 08:23 Fentanyl 500 Mcg/10 Ml Vial IV 02/09/19 08:17 Not Given ONCE STA Fentanyl Citrate Confirm 02/09/19 08:21 Sublimaze 100 Mcg/2 Ml Administered 02/09/19 08:22 Dose 100 mcg .ROUTE .STK-MED ONE Fentanyl Citrate 50 mcg 02/09/19 08:23 02/09/19 08:29 Sublimaze 100 Mcg/2 Ml IV 02/09/19 08:24 50 mcg STAT ONE Administration Ondansetron HCl 4 mg 02/09/19 08:18 02/09/19 08:25 Zofran 4 Mg/2 Ml Vial IV 02/09/19 08:19 4 mg STAT ONE Administration Ondansetron HCl Confirm 02/09/19 08:21 Zofran 4 Mg/2 Ml Vial Administered 02/09/19 08:22 Dose 4 mg .ROUTE .STK-MED ONE Lab/Rad Data: Laboratory Result Diagrams 02/09/19 08:15 02/09/19 08:15 Laboratory Results 02/09/19 02/09/19 02/09/19 Range/Units 10:29 08:37 08:15 WBC (4.0-10.5) K/mm3 RBC (4.1-5.4) M/mm3 Hgb (12.0-16.0) gm/dl Hct (35-47) % MCV (78-100) fl MCH (26-32) pg MCHC (32-36) g/dl RDW (11.5-14.0) % Plt Count (150-450) K/mm3 MPV (6-9.5) fl Gran % (36.0-66.0) % Eos # (Auto) (0-0.5) Absolute Lymphs (auto) (1.0-4.6) Absolute Monos (auto) (0.0-1.3) Lymphocytes % (24.0-44.0) % Monocytes % (0.0-12.0) % Eosinophils % (0.00-5.0) % Basophils % (0.0-0.4) % Absolute Granulocytes (1.4-6.9) Basophils # (0-0.4) ESR 37 H (0-20) mm/hr PT (9.95-12.35) SECONDS INR (0.8-3.0) APTT (25.3-37.0) SECONDS D-Dimer (215-500) ng/mL Sodium (137-145) mmol/L Potassium (3.5-5.1) mmol/L Chloride (98-107) mmol/L Carbon Dioxide (22-30) mmol/L Anion Gap (5-15) MEQ/L BUN (7-17) mg/dL Creatinine (0.52-1.04) mg/dL Estimated GFR ML/MIN Glucose (74-106) mg/dL Lactic Acid (0.4-2.0) Calcium (8.4-10.2) mg/dL Magnesium (1.6-2.3) mg/dL Total Bilirubin (0.2-1.3) mg/dL AST (14-36) U/L ALT (0-35) U/L Alkaline Phosphatase (38-126) U/L Troponin I (0.000-0.034) ng/mL NT-Pro-B Natriuret Pep (0-900) pg/mL Serum Total Protein (6.3-8.2) g/dL Albumin (3.5-5.0) g/dL Urine Color YELLOW (YELLOW) Urine Appearance CLEAR (CLEAR) Urine pH 6.0 (5-6) Ur Specific Mcintosh 1.009 (1.005-1.025) Urine Protein NEGATIVE (Negative) Urine Ketones NEGATIVE (NEGATIVE) Urine Blood NEGATIVE (0-5) West/ul Urine Nitrite NEGATIVE (NEGATIVE) Urine Bilirubin NEGATIVE (NEGATIVE) Urine Urobilinogen NEGATIVE (0-1) mg/dL Ur Leukocyte Esterase NEGATIVE (NEGATIVE) Urine WBC (Auto) NONE (0-5) /HPF Urine RBC (Auto) NONE (0-2) /HPF U Epithel Cells (Auto) NONE (FEW) /HPF Urine Bacteria (Auto) NONE (NEGATIVE) /HPF Urine Mucus (Auto) SLIGHT (NEGATIVE) /HPF Urine Culture Reflexed NO (NO) Urine Glucose NEGATIVE (NEGATIVE) mg/dL Influenza Type A Ag NEGATIVE (NEGATIVE) Influenza Type B Ag NEGATIVE (NEGATIVE) RSV (PCR) NEGATIVE (Negative) 02/09/19 02/09/19 02/09/19 Range/Units 08:15 08:15 08:15 WBC (4.0-10.5) K/mm3 RBC (4.1-5.4) M/mm3 Hgb (12.0-16.0) gm/dl Hct (35-47) % MCV (78-100) fl MCH (26-32) pg MCHC (32-36) g/dl RDW (11.5-14.0) % Plt Count (150-450) K/mm3 MPV (6-9.5) fl Gran % (36.0-66.0) % Eos # (Auto) (0-0.5) Absolute Lymphs (auto) (1.0-4.6) Absolute Monos (auto) (0.0-1.3) Lymphocytes % (24.0-44.0) % Monocytes % (0.0-12.0) % Eosinophils % (0.00-5.0) % Basophils % (0.0-0.4) % Absolute Granulocytes (1.4-6.9) Basophils # (0-0.4) ESR (0-20) mm/hr PT 11.8 (9.95-12.35) SECONDS INR 1.04 (0.8-3.0) APTT 35.8 (25.3-37.0) SECONDS D-Dimer 916 H* (215-500) ng/mL Sodium 142 (137-145) mmol/L Potassium 3.5 (3.5-5.1) mmol/L Chloride 106 (98-107) mmol/L Carbon Dioxide 30 (22-30) mmol/L Anion Gap 9.6 (5-15) MEQ/L BUN 10 (7-17) mg/dL Creatinine 0.62 (0.52-1.04) mg/dL Estimated GFR > 60.0 ML/MIN Glucose 130 H (74-106) mg/dL Lactic Acid (0.4-2.0) Calcium 8.8 (8.4-10.2) mg/dL Magnesium 1.6 (1.6-2.3) mg/dL Total Bilirubin 0.90 (0.2-1.3) mg/dL AST 17 (14-36) U/L ALT 17 (0-35) U/L Alkaline Phosphatase 74 (38-126) U/L Troponin I < 0.012 (0.000-0.034) ng/mL NT-Pro-B Natriuret Pep 433 (0-900) pg/mL Serum Total Protein 6.5 (6.3-8.2) g/dL Albumin 3.6 (3.5-5.0) g/dL Urine Color (YELLOW) Urine Appearance (CLEAR) Urine pH (5-6) Ur Specific Mcintosh (1.005-1.025) Urine Protein (Negative) Urine Ketones (NEGATIVE) Urine Blood (0-5) West/ul Urine Nitrite (NEGATIVE) Urine Bilirubin (NEGATIVE) Urine Urobilinogen (0-1) mg/dL Ur Leukocyte Esterase (NEGATIVE) Urine WBC (Auto) (0-5) /HPF Urine RBC (Auto) (0-2) /HPF U Epithel Cells (Auto) (FEW) /HPF Urine Bacteria (Auto) (NEGATIVE) /HPF Urine Mucus (Auto) (NEGATIVE) /HPF Urine Culture Reflexed (NO) Urine Glucose (NEGATIVE) mg/dL Influenza Type A Ag (NEGATIVE) Influenza Type B Ag (NEGATIVE) RSV (PCR) (Negative) 02/09/19 02/09/19 Range/Units 08:15 08:11 WBC 11.2 H (4.0-10.5) K/mm3 RBC 4.36 (4.1-5.4) M/mm3 Hgb 13.1 (12.0-16.0) gm/dl Hct 39.0 (35-47) % MCV 89.4 (78-100) fl MCH 30.0 (26-32) pg MCHC 33.6 (32-36) g/dl RDW 14.5 H (11.5-14.0) % Plt Count 161 (150-450) K/mm3 MPV 11.4 H (6-9.5) fl Gran % 82.3 H (36.0-66.0) % Eos # (Auto) 0.14 (0-0.5) Absolute Lymphs (auto) 1.07 (1.0-4.6) Absolute Monos (auto) 0.75 (0.0-1.3) Lymphocytes % 9.6 L (24.0-44.0) % Monocytes % 6.7 (0.0-12.0) % Eosinophils % 1.3 (0.00-5.0) % Basophils % 0.1 (0.0-0.4) % Absolute Granulocytes 9.23 H (1.4-6.9) Basophils # 0.01 (0-0.4) ESR (0-20) mm/hr PT (9.95-12.35) SECONDS INR (0.8-3.0) APTT (25.3-37.0) SECONDS D-Dimer (215-500) ng/mL Sodium (137-145) mmol/L Potassium (3.5-5.1) mmol/L Chloride (98-107) mmol/L Carbon Dioxide (22-30) mmol/L Anion Gap (5-15) MEQ/L BUN (7-17) mg/dL Creatinine (0.52-1.04) mg/dL Estimated GFR ML/MIN Glucose (74-106) mg/dL Lactic Acid 1.1 (0.4-2.0) Calcium (8.4-10.2) mg/dL Magnesium (1.6-2.3) mg/dL Total Bilirubin (0.2-1.3) mg/dL AST (14-36) U/L ALT (0-35) U/L Alkaline Phosphatase (38-126) U/L Troponin I (0.000-0.034) ng/mL NT-Pro-B Natriuret Pep (0-900) pg/mL Serum Total Protein (6.3-8.2) g/dL Albumin (3.5-5.0) g/dL Urine Color (YELLOW) Urine Appearance (CLEAR) Urine pH (5-6) Ur Specific Mcintosh (1.005-1.025) Urine Protein (Negative) Urine Ketones (NEGATIVE) Urine Blood (0-5) West/ul Urine Nitrite (NEGATIVE) Urine Bilirubin (NEGATIVE) Urine Urobilinogen (0-1) mg/dL Ur Leukocyte Esterase (NEGATIVE) Urine WBC (Auto) (0-5) /HPF Urine RBC (Auto) (0-2) /HPF U Epithel Cells (Auto) (FEW) /HPF Urine Bacteria (Auto) (NEGATIVE) /HPF Urine Mucus (Auto) (NEGATIVE) /HPF Urine Culture Reflexed (NO) Urine Glucose (NEGATIVE) mg/dL Influenza Type A Ag (NEGATIVE) Influenza Type B Ag (NEGATIVE) RSV (PCR) (Negative) - Progress Progress: improved - Departure Departure Disposition: Home Clinical Impression: Weakness, Lung mass, Abdominal pain, Fall Condition: Fair Critical Care Time: No Referrals: WENDY WILLS [Primary Care Provider] - Additional Instructions: patient was instructed to 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
[2019-02-09] MEDS ORDERED: Sodium Chloride 0.9% 1000 ML 1,000 ML IV SCH (08:15)
[2019-02-09] MEDS ORDERED: FENTANYL 500 MCG/10 ML VIAL IV STA (08:16)
[2019-02-09] MEDS ORDERED: Zofran 4 MG/2 ML VIAL IV ONE (08:18)
[2019-02-09] MEDS ORDERED: SUBLIMAZE 100 MCG/2 ML ONE (08:21)
[2019-02-09] MEDS ORDERED: Sodium Chloride 0.9% 1000 ML 1,000 ML ONE (08:21)
[2019-02-09] MEDS ORDERED: Zofran 4 MG/2 ML VIAL ONE (08:21)
[2019-02-09] MEDS ORDERED: SUBLIMAZE 100 MCG/2 ML IV ONE (08:23)
[2019-02-09 09:03] LABS: Absolute Neutrophil Ct (ANC) 9.23 (1.4-6.9); BASOPHIL % 0.1 % (0.0-0.4); Basophil (Absolute #) 0.01 (0-0.4); Eosinophil % 1.3 % (0.00-5.0); Eosinophil (Absolute #) 0.14 (0-0.5); Hemoglobin 13.1 gm/dl (12.0-16.0); Lymphocyte (Absolute #) 1.07 (1.0-4.6); Lymphocytes % 9.6 % (24.0-44.0); Mean Cell Volume 89.4 fl (78-100); Mean Corpuscular Hgb Concent. 33.6 g/dl (32-36); Mean Platelet Volume 11.4 fl (6-9.5); Monocyte (Absolute #) 0.75 (0.0-1.3); Monocytes % 6.7 % (0.0-12.0); Neutrophil % 82.3 % (36.0-66.0); Platelet Count 161 K/mm3 (150-450); Red Blood Count 4.36 M/mm3 (4.1-5.4); Red Cell Distribution Width 14.5 % (11.5-14.0); White Blood Count 11.2 K/mm3 (4.0-10.5)
[2019-02-09 09:04] LABS: INR 1.04 (0.8-3.0); PROTIME 11.8 SECONDS (9.95-12.35)
[2019-02-09 09:06] LABS: PTT 35.8 SECONDS (25.3-37.0)
[2019-02-09 09:16] LABS: ALBUMIN 3.6 g/dL (3.5-5.0); ALKALINE PHOSPHATASE 74 U/L (38-126); ANION GAP 9.6 MEQ/L (5-15); BLOOD UREA NITROGEN 10 mg/dL (7-17); CHLORIDE 106 mmol/L (98-107); Calcium 8.8 mg/dL (8.4-10.2); Carbon Dioxide 30 mmol/L (22-30); Creatinine 1 0.62 mg/dL (0.52-1.04); Glucose 130 mg/dL (74-106); MAGNESIUM 1.6 mg/dL (1.6-2.3); NT PRO BNP 433 pg/mL (0-900); Potassium 3.5 mmol/L (3.5-5.1); SGOT/AST 17 U/L (14-36); SGPT/ALT 17 U/L (0-35); SODIUM 142 mmol/L (137-145); Total Protein 6.5 g/dL (6.3-8.2)
[2019-02-09 09:37] LABS: INFLUENZA A NEGATIVE (NEGATIVE); INFLUENZA B NEGATIVE (NEGATIVE); RESPIRATORY SYNCTIAL VIRUS NEGATIVE (Negative)
[2019-02-09 10:57] LABS: Appearance CLEAR (CLEAR); Bilirubin NEGATIVE (NEGATIVE); Blood NEGATIVE Ery/ul (0-5); Glucose NEGATIVE (NEGATIVE); Ketones NEGATIVE (NEGATIVE); Leukocyte Esterase NEGATIVE (NEGATIVE); Mucus SLIGHT /HPF (NEGATIVE); Nitrite NEGATIVE (NEGATIVE); Protein,Urine Dip NEGATIVE (Negative); Specific Gravity 1.009 (1.005-1.025); Urobilinogen NEGATIVE mg/dL (0-1)
[2019-02-09 11:09] VITALS: BP 102/60; PULSE 73; O2SAT 97
--- NOTE | 2019-02-09 20:17 | XRAY ---
Indication: Abdomen pain. Chronic diarrhea. Multiple contiguous axial images obtained through the abdomen and pelvis using 100 cc of Isovue-370 contrast only. Comparison: 01/22/18. CT chest reported separately. Noncontrasted stomach and bowel loops appear nonobstructed. Again previous hiatal hernia repair, appendectomy, cholecystectomy, hysterectomy, and minimal sigmoid diverticulosis. No free fluid/air. Remaining liver, pancreas, spleen, adrenal glands, kidneys, ureters, and bladder appear unremarkable. Stable minimal aortoiliac calcifications without AAA. No pathologic retroperitoneal lymphadenopathy. Osseous structures intact again with mild degenerative changes throughout the spine and fusion right SI joint. Impression: 1. Stable sigmoid diverticulosis and postsurgical changes. 2. Remaining CT abdomen/pelvis with contrast exam is negative. Comment: Preliminary interpretation was made by [facility]. No critical discrepancy. CTDI 22.19
--- NOTE | 2019-02-09 20:49 | XRAY ---
Indication: Short of breath and elevated d-dimer. Multiple contiguous axial images obtained through the chest using 100 cc Isovue-370 contrast and PE protocol. Comparison: February 10, 2006 There is good opacification of the pulmonary arteries to include the lobar and segmental branches. No filling defect or pulmonary embolus. Heart is not enlarged. There remains multiple left perihilar calcified nodes. No pathologic mediastinal/hilar lymphadenopathy. Lungs inflated with new 1.6 cm right upper lobe noncalcified mass appearing slightly spiculated. New left upper lobe anterolateral subpleural fibrosis/scarring. Stable tiny left lower lobe calcified granuloma. No infiltrate or effusion. Bony thorax intact with mild degenerative changes throughout the spine. New healing left 4-[address] abdomen reported separately. Impression: 1. Negative pulmonary embolus. 2. New 1.6 cm irregular right upper lobe noncalcified mass. Malignancy not completely excluded. PET/CT may yield further information. 3. Incidental bony findings and again evidence for old granulomatous disease. Comment: Preliminary interpretation was made by [facility] [[email or web address] No critical discrepancy. CTDI 28.05
--- NOTE | 2019-02-09 21:07 | XRAY ---
Indication: Malaise. Falling. Comparison: November 04, 2017. Portable chest demonstrates new 1.5 cm right suprahilar masslike opacity further detailed on same-day CT chest exam. Remaining heart and lungs normal again with left hilar calcified nodes. Bony thorax intact. Stable epigastric postsurgical changes. Impression: New right suprahilar masslike opacity further detailed same-day CT chest exam.
--- NOTE | 2019-02-09 21:11 | XRAY ---
Indication: Malaise. Falling. Multiple contiguous axial images obtained through the head without contrast. Comparison: August 26, 2018. Several images through the base of the brain slightly degraded by motion artifact. Stable age-appropriate global atrophy and minimal periventricular degenerative micro-ischemia. Also stable bilateral basal ganglia remote infarcts versus prominent perivascular spaces. No acute intracranial hemorrhage, abnormal extra-axial fluid collection, or mass effect. Fourth ventricle is midline without hydrocephalus. Gonzalez-white matter differentiation preserved. Bony calvarium intact. Visualized paranasal sinuses and mastoid air cells are clear. Impression: Minimal motion artifact. Normal aging brain with chronic features. No acute intracranial abnormalities. Comment: Preliminary interpretation was made by [facility]. No critical discrepancy. CTDI 55.71
== END 2019-02-09 11:38 | disposition home or self-care (01) ==
LOC: ED 07:38
DX: R53.1 Weakness (principal); R91.8 Other nonspecific abnormal finding of lung field; R10.9 Unspecified abdominal pain; R29.6 Repeated falls; Z79.899 Other long term (current) drug therapy
CPT/HCPCS: 36000; 36415; 70450; 71046; 71260; 74177; 80053; 81001; 83605; 83735; 83880; 84484; 85025; 85379; 85610; 85652; 85730; 86140; 87040; 87631; 93005; 96360; 96361; 96374; 96375; 99284; J2405; J3010

== ENCOUNTER 2019-04-08 08:18 | Emergency (ER) | payer MEDICARE, OTHER ==
--- NOTE | 2019-04-08 08:33 | ERPHSYRPT ---
- History of Present Illness Time Seen by Provider: 04/08/19 08:32 Source: patient Exam Limitations: no limitations Physician History: The patient is a 60-year-old female with a past medical history significant for lung cancer diagnosed last fall and a recent right upper lobe that to me and that was performed on either March 30, 2023 March 31, 2019 at [facility] presents with a chief complaint of abdominal pain. Her abdominal pain started over the weekend. The pain is reportedly a diffuse pain that is non-radiating, constant, and now is severe. Of note, the patient reportedly has not had a bowel movement since either the or of this month. She states she was recently released from the hospital a few days ago and currently lives at home alone. She is accompanied by a neighbor who encouraged her to come to the emergency department for further evaluation and management. Of note, the patient reportedly does have a history of IBS and has been taking and Docusate while she was hospitalized although she cannot have any times a day and on into 2 doses of MiraLax. She does have a decreased appetite but reportedly dinner last night without any problems. She had one episode of vomiting today. There is no reported diarrhea, fever, chills or difficulty breathing. She is currently on [place] and tramadol for pain at home. Allergies/Adverse Reactions: clarithromycin [From Biaxin] Allergy (Severe, Verified 04/08/19 08:44) Hives Coconut Allergy (Severe, Verified 04/08/19 08:44) Difficulty Breathing green dye *RETIRED-07/03/12 [Green Dye] Allergy (Mild, Verified 04/08/19 08:44) Swelling swelling ears red dye [Red Dye] Allergy (Mild, Verified 04/08/19 08:44) Swelling ears swell nitrofurantoin [From Macrobid] Allergy (Verified 04/08/19 08:44) levofloxacin [From Levaquin] Adverse Reaction (Mild, Verified 04/08/19 08:44) Joint Aches Home Medications: Zolpidem Tartrate [Ambien] 10 mg PO HSPRN PRN 08/16/15 [History] Spironolactone 25 mg [Aldactone 25 MG] 25 mg PO 1800 11/16/17 [History] Fexofenadine HCl 180 mg DAILY 08/26/18 [History] Hyoscyamine Sulfate 0.125 mg [Anaspaz 0.125 mg] 0.125 mg QID 02/09/19 [ History] Hx Tetanus, Diphtheria Vaccination/Date Given: Yes Hx Influenza Vaccination/Date Given: No Hx Pneumococcal Vaccination/Date Given: No - Review of Systems Constitutional: No Symptoms Eyes: No Symptoms Respiratory: No Cough, No Cyanosis, No Dyspnea, No Dyspnea on Exertion (WILSON) Cardiac: No Chest Pain Abdominal/Gastrointestinal: Abdominal Pain, Nausea, Vomiting, Constipation, Appetite Changes, No Diarrhea, No Hematemesis, No Hematochezia, No Melena Genitourinary Symptoms: No Dysuria, No Frequency, No Hematuria, No Hesitancy Musculoskeletal: No Symptoms Skin: No Symptoms Neurological: No Symptoms Psychological: No Symptoms All Other Systems: Reviewed and Negative - Past Medical History Pertinent Past Medical History: Yes Neurological History: No Pertinent History ENT History: No Pertinent History Cardiac History: Other Respiratory History: Other Endocrine Medical History: Other Musculoskeletal History: Osteoarthritis GI Medical History: Diverticulitis, Gallbladder Disease, Pancreatitis History: No Pertinent History Psycho-Social History: No Pertinent History Female Reproductive Disorders: No Pertinent History Other Medical History: bruised liver, kidney disease in the past, seasonal allergies, tri- and bi-giminie - Past Surgical History Past Surgical History: Yes Neuro Surgical History: No Pertinent History Cardiac: No Pertinent History Respiratory: No Pertinent History Gastrointestinal: Appendectomy, Cholecystectomy, Hernia Repair Genitourinary: No Pertinent History Musculoskeletal: No Pertinent History, Joint Replacement, Orthopedic Surgery Female Surgical History: Hysterectomy, Other Other Surgical History: tonsilectomy, carpal tunnel, trigger finger X3, BLADDER SLING, colorectal, SI fusion - Social History Smoking Status: Former smoker How long have you smoked: 20 years Exposure to second hand smoke: No Drug Use: none Patient Lives Alone: Yes - Nursing Vital Signs Nursing Vital Signs: Initial Vital Signs Temperature 98.0 F 04/08/19 08:32 Pulse Rate 80 04/08/19 08:32 Respiratory Rate 12 04/08/19 08:32 Blood Pressure 180/98 04/08/19 08:32 O2 Sat by Pulse Oximetry 96 04/08/19 08:32 Pain Scale Pain Intensity 9 - Physical Exam General Appearance: mild distress, alert, other (The patient was lying right lateral recumbent and somewhat on her abdomen/semi-prone position when I entered the room) Eye Exam: PERRL/EOMI Ears, Nose, Throat Exam: normal ENT inspection Neck Exam: normal inspection Respiratory Exam: normal breath sounds, chest tenderness, other (Right sided chest tenderness around the surgical wound. The would itself was bandaged with a clean bandage and when removed the wound was covered in petroleum gauze. The surrounding wound appeared to have no sign of obvious infection) Cardiovascular Exam: regular rate/rhythm, normal heart sounds, capillary refill <2 sec, No murmur, No friction rub Gastrointestinal/Abdomen Exam: soft, tenderness, distention, ecchymosis, other ( Small areas ecchymosis noted to abdominal wall where patient was receiving either heparin or lovenox injections. No rigidity, guarding, mass, bowel sounds normoactive. Mild tenderness noted to entire abodmen. ), No guarding Back Exam: normal inspection Extremity Exam: normal inspection Neurologic Exam: alert, 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 O2 Delivery: Room Air - Course Nursing assessment & vital signs reviewed: Yes - CT Exams Abdomen/Pelvis CT Interpretation: Discussed w/radiologist (Constipation/increased stool burden in ascending colon. SQ emphysema discussed with radiologist and given hx of recent lobectomy likely typical post-surgical changes rather than necrotizing infection) Ordered Tests: Active Orders 24 hr Category Date Time Status Enema STAT Care 04/08/19 11:36 Active IV Insertion STAT Care 04/08/19 08:53 Active ABDOMEN AND PELVIS W CONTRAST [CT] Stat Exams 04/08/19 08:54 Completed BMP Stat Lab 04/08/19 09:17 Completed CBC W DIFF Stat Lab 04/08/19 08:53 Completed Hepatic Function Panel Stat Lab 04/08/19 09:17 Completed LIPASE Stat Lab 04/08/19 09:17 Completed Manual Differential NC Stat Lab 04/08/19 08:53 Completed UA W/RFX UR CULTURE Stat Lab 04/08/19 09:59 Completed Medication Summary Discontinued Medications Generic Name Dose Route Start Last Admin Trade Name Freq PRN Reason Stop Dose Admin Sodium Chloride 1,000 mls @ 999 mls/hr 04/08/19 10:09 04/08/19 12:30 Sodium Chloride 0.9% 1000 Ml IV 04/08/19 11:09 Infused .Q1H1M STA Infusion Sodium Chloride Confirm 04/08/19 10:22 Sodium Chloride 0.9% 1000 Ml Administered 04/08/19 10:23 Dose 1,000 mls @ ud .ROUTE .STK-MED ONE Magnesium Citrate 296 ml 04/08/19 13:09 04/08/19 13:11 Citroma 296 Ml PO 04/08/19 13:10 296 ml STAT ONE Administration Magnesium Citrate Confirm 04/08/19 13:09 Citroma 296 Ml Administered 04/08/19 13:10 Dose 296 ml .ROUTE .STK-MED ONE Ondansetron HCl 4 mg 04/08/19 08:53 04/08/19 09:01 Zofran 4 Mg/2 Ml Vial IV 04/08/19 08:54 4 mg STAT ONE Administration Ondansetron HCl Confirm 04/08/19 09:00 Zofran 4 Mg/2 Ml Vial Administered 04/08/19 09:01 Dose 4 mg .ROUTE .STK-MED ONE Lab/Rad Data: Laboratory Result Diagrams 04/08/19 08:53 04/08/19 09:17 Laboratory Results 04/08/19 04/08/19 04/08/19 Range/Units 09:59 09:17 08:53 WBC 5.9 (4.0-10.5) K/mm3 RBC 4.10 (4.1-5.4) M/mm3 Hgb 12.3 (12.0-16.0) gm/dl Hct 36.9 (35-47) % MCV 90.0 (78-100) fl MCH 30.0 (26-32) pg MCHC 33.3 (32-36) g/dl RDW 13.9 (11.5-14.0) % Plt Count 273 (150-450) K/mm3 MPV 9.8 (7.5-11.0) fl Segmented Neutrophils 80 H (36.0-66.0) % Lymphocytes (Manual) 12 L (24-44) % Monocytes (Manual) 2 (0.0-12.0) % Eosinophils (Manual) 6 H (0.00-3.0) % Platelet Estimate NORMAL (NORMAL) RBC Morphology NORMAL Sodium 134 L (137-145) mmol/L Potassium 3.6 (3.5-5.1) mmol/L Chloride 96 L (98-107) mmol/L Carbon Dioxide 31 H (22-30) mmol/L Anion Gap 11.0 (5-15) MEQ/L BUN 9 (7-17) mg/dL Creatinine 0.53 (0.52-1.04) mg/dL Estimated GFR > 60.0 ML/MIN Glucose 123 H (74-106) mg/dL Calcium 8.6 (8.4-10.2) mg/dL Total Bilirubin 0.60 (0.2-1.3) mg/dL Direct Bilirubin 0.2 (0.0-0.4) mg/dL AST 43 H (14-36) U/L ALT 21 (0-35) U/L Alkaline Phosphatase 118 (38-126) U/L Serum Total Protein 6.2 L (6.3-8.2) g/dL Albumin 3.3 L (3.5-5.0) g/dL Lipase 39 (23-300) U/L Urine Color YELLOW (YELLOW) Urine Appearance CLEAR (CLEAR) Urine pH 7.0 (5-6) Ur Specific [place] 1.015 (1.005-1.025) Urine Protein NEGATIVE (Negative) Urine Ketones SMALL (NEGATIVE) Urine Blood NEGATIVE (0-5) [place] Urine Nitrite NEGATIVE (NEGATIVE) Urine Bilirubin NEGATIVE (NEGATIVE) Urine Urobilinogen 2 (0-1) mg/dL Ur Leukocyte Esterase NEGATIVE (NEGATIVE) Urine WBC (Auto) 0-2 (0-5) /HPF Urine RBC (Auto) NONE (0-2) /HPF U Epithel Cells (Auto) RARE (FEW) /HPF Urine Bacteria (Auto) NONE (NEGATIVE) /HPF Urine Mucus (Auto) SLIGHT (NEGATIVE) /HPF Urine Culture Reflexed NO (NO) Urine Glucose NEGATIVE (NEGATIVE) mg/dL - Progress Progress: improved Progress Note: 04/08/19 16:02 Nontoxic in appearance. Afebrile. The patient's labs and CT were reviewed. Her CT redemonstrated the recent surgical wound to the right axilla from her recent right upper lobectomy. Also demonstrated significant amount of stool or in any descending colon. I suspect the patient's constipation may be related to her recent surgical procedure in addition to taking [place] as well as tramadol. I suspect the patient may also have a mild dehydration component given that she was mildly hyponatremic hypochloremic which may also be contributing to her constipation. She received a liter of IV fluids in the emergency department in addition to an enema and had no bowel movement while she was in the emergency department. Ultimately, the patient requested to be discharged home. She was sent home with a bottle of mag citrate with instructions to take half the bottle to see if this helped the meds for constipation. A bowel regimen was also prescribed. Counseled pt/family regarding: lab results, diagnosis, need for follow-up, rad results - Departure Departure Disposition: Home Clinical Impression: Constipation, Abdominal pain Condition: Stable Critical Care Time: No Referrals: WENDY WILLS [Primary Care Provider] - Instructions: Constipation in Adults, High Fiber Diet, Acute Abdomen (Belly Pain), Adult (DC) Prescriptions: Polyethylene Glycol 3350 17 gm [Miralax Powder 17GM PACKET] 17 gm PO BID #30 packet Sennosides/Docusate Sodium [Docusate Sodium-Sennosides Tab] 1 each PO BID #30 tablet
[2019-04-08] MEDS ORDERED: Zofran 4 MG/2 ML VIAL IV ONE (08:53)
[2019-04-08] MEDS ORDERED: Zofran 4 MG/2 ML VIAL ONE (09:00)
[2019-04-08 09:10] LABS: Hematocrit 36.9 % (35-47); Hemoglobin 12.3 gm/dl (12.0-16.0); Mean Corpuscular Hgb Concent. 33.3 g/dl (32-36); Mean Platelet Volume 9.8 fl (7.5-11.0); Platelet Count 273 K/mm3 (150-450); Red Cell Distribution Width 13.9 % (11.5-14.0); White Blood Count 5.9 K/mm3 (4.0-10.5)
[2019-04-08 09:23] LABS: ALBUMIN 3.3 g/dL (3.5-5.0); ALKALINE PHOSPHATASE 118 U/L (38-126); BLOOD UREA NITROGEN 9 mg/dL (7-17); CHLORIDE 96 mmol/L (98-107); Calcium 8.6 mg/dL (8.4-10.2); Carbon Dioxide 31 mmol/L (22-30); Creatinine 1 0.53 mg/dL (0.52-1.04); Direct Bilirubin 0.2 mg/dL (0.0-0.4); Glucose 123 mg/dL (74-106); LIPASE 39 U/L (23-300); Potassium 3.6 mmol/L (3.5-5.1); SGOT/AST 43 U/L (14-36); SGPT/ALT 21 U/L (0-35); SODIUM 134 mmol/L (137-145); Total Protein 6.2 g/dL (6.3-8.2)
[2019-04-08 09:54] VITALS: PULSE 81
[2019-04-08 10:07] LABS: Appearance CLEAR (CLEAR); Bilirubin NEGATIVE (NEGATIVE); Blood NEGATIVE Ery/ul (0-5); Epithelial Cells RARE /HPF (FEW); Glucose NEGATIVE (NEGATIVE); Ketones SMALL (NEGATIVE); Leukocyte Esterase NEGATIVE (NEGATIVE); Mucus SLIGHT /HPF (NEGATIVE); Nitrite NEGATIVE (NEGATIVE); Protein,Urine Dip NEGATIVE (Negative); Specific Gravity 1.015 (1.005-1.025); Urobilinogen 2 mg/dL (0-1); WBC 0-2 /HPF (0-5)
[2019-04-08] MEDS ORDERED: Sodium Chloride 0.9% 1000 ML 1,000 ML IV STA (10:09)
[2019-04-08] MEDS ORDERED: Sodium Chloride 0.9% 1000 ML 1,000 ML ONE (10:22)
[2019-04-08 10:35] LABS: Eosinophil 6 % (0.00-3.0); Lymphocytes 12 % (24-44); Monocyte 2 % (0.0-12.0); Neutrophils 80 % (36.0-66.0); Total Cells Counted 100
[2019-04-08 10:36] LABS: Platelet Estimate NORMAL (NORMAL)
--- NOTE | 2019-04-08 11:04 | XRAY ---
Indication: Vomiting. Constipation. Multiple contiguous axial images obtained through the abdomen and pelvis using 100 cc of Isovue-370 contrast only. Comparison: February 09, 2019. Lung bases again demonstrates bibasilar fibrosis/scarring with new small nonspecific right effusion. Heart is not enlarged. Right lateral chest demonstrates new incompletely visualized subcutaneous emphysema and deep soft tissue swelling/induration with pockets of fluid midaxillary line possibly gas-forming infection in etiology. Noncontrasted stomach and bowel loops appear nonobstructed. There is moderate fecal debris predominantly in the ascending colon with little fecal debris in the descending and sigmoid. Again previous hiatal hernia repair, appendectomy, cholecystectomy, hysterectomy, and minimal sigmoid diverticulosis. No free fluid/air. Remaining liver, pancreas, spleen, adrenal glands, kidneys, ureters, and bladder appear unremarkable. Stable minimal aortoiliac calcifications without AAA. No pathologic retroperitoneal lymphadenopathy. Osseous structures intact again with mild degenerative changes throughout the spine and fusion right SI joint. Impression: 1. New partially visualized right lateral chest wall subcutaneous emphysema and deep soft tissue swelling/induration with pockets of fluid concerning for gas-forming infection. 2. New small nonspecific right effusion. 3. Mild fecal stasis predominantly in the ascending colon.
[2019-04-08 11:05] VITALS: BP 153/83; O2SAT 97
[2019-04-08] MEDS ORDERED: CITROMA 296 ML ONE (13:09)
[2019-04-08] MEDS ORDERED: CITROMA 296 ML PO ONE (13:09)
== END 2019-04-08 13:10 | disposition home or self-care (01) ==
LOC: ED 08:18
DX: K59.00 Constipation, unspecified (principal); R10.9 Unspecified abdominal pain
CPT/HCPCS: 36000; 36415; 74177; 80048; 80076; 81001; 83690; 85025; 96360; 96374; 99284; J2405; A9270-GY

== ENCOUNTER 2019-10-18 16:11 | Emergency (ER) | payer MEDICARE, OTHER ==
[2019-10-18 16:40] VITALS: BP 179/76; PULSE 70; O2SAT 95
--- NOTE | 2019-10-18 16:51 | ERPHSYRPT ---
- History of Present Illness Time Seen by Provider: 10/18/19 16:46 Source: patient Exam Limitations: no limitations Patient Subjective Stated Complaint: pt here for bleeding and pain to left ear, after having stick poked in left ear, Triage Nursing Assessment: pt alert, resp easy, skin w/d/p. no active bleeding at present time. has dried blood to ear Physician History: pt here for bleeding and pain to left ear, after having stick poked in left ear, no other injury Timing/Duration: abrupt onset ENT Location: ear (L) Prearrival Treatment: no prearrival treatment Associated Symptoms: denies symptoms Allergies/Adverse Reactions: clarithromycin [From Biaxin] Allergy (Severe, Verified 10/18/19 16:41) Hives Coconut Allergy (Severe, Verified 10/18/19 16:41) Difficulty Breathing green dye *RETIRED-07/03/12 [Green Dye] Allergy (Mild, Verified 10/18/19 16:41) Swelling swelling ears red dye [Red Dye] Allergy (Mild, Verified 10/18/19 16:41) Swelling ears swell nitrofurantoin [From Macrobid] Allergy (Verified 10/18/19 16:41) levofloxacin [From Levaquin] Adverse Reaction (Mild, Verified 10/18/19 16:41) Joint Aches Home Medications: Zolpidem Tartrate [Ambien] 10 mg PO HSPRN PRN 08/16/15 [History] Cefuroxime Axetil [Cefuroxime] 1 ea DAILY 10/18/19 [History] Gabapentin 1 ea TID 10/18/19 [History] Hx Tetanus, Diphtheria Vaccination/Date Given: Yes Hx Influenza Vaccination/Date Given: Yes Hx Pneumococcal Vaccination/Date Given: Yes Immunizations Up to Date: Yes Travel Risk - International Travel Have you traveled outside of the country in past 3 weeks: No - Coronavirus Screening Are you exhibiting any of the following symptoms?: No Close contact with a COVID-19 positive Pt in past 14-21 Days: No - Review of Systems Constitutional: No Symptoms Eyes: No Symptoms Ears, Nose, & Throat: Ear Pain (left) Respiratory: No Symptoms Cardiac: No Symptoms Abdominal/Gastrointestinal: No Symptoms Musculoskeletal: No Symptoms - Past Medical History Pertinent Past Medical History: Yes Neurological History: No Pertinent History ENT History: No Pertinent History Cardiac History: Other Respiratory History: Other Endocrine Medical History: Diabetes Type II, Other Musculoskeletal History: Osteoarthritis GI Medical History: Diverticulitis, Gallbladder Disease, Pancreatitis History: No Pertinent History Psycho-Social History: No Pertinent History Female Reproductive Disorders: No Pertinent History Other Medical History: bruised liver, kidney disease in the past, seasonal allergies, tri- and bi-giminie, liung ca - Past Surgical History Past Surgical History: Yes Neuro Surgical History: No Pertinent History Cardiac: No Pertinent History Respiratory: No Pertinent History Gastrointestinal: Appendectomy, Cholecystectomy, Hernia Repair Genitourinary: No Pertinent History Musculoskeletal: No Pertinent History, Joint Replacement, Orthopedic Surgery Female Surgical History: Hysterectomy, Other Other Surgical History: tonsilectomy, carpal tunnel, trigger finger X3, BLADDER SLING, colorectal, SI fusion - Social History Smoking Status: Former smoker How long have you smoked: 20 years Exposure to second hand smoke: No Drug Use: none Patient Lives Alone: Yes - Female History Hx Last Menstrual Period: psot Hx Now: No - Nursing Vital Signs Nursing Vital Signs: Initial Vital Signs Temperature 97.0 F 10/18/19 16:35 Pulse Rate 70 10/18/19 16:35 Respiratory Rate 18 10/18/19 16:35 Blood Pressure 179/76 10/18/19 16:35 O2 Sat by Pulse Oximetry 95 10/18/19 16:35 Pain Scale Pain Intensity 7 - Physical Exam General Appearance: no apparent distress Eye Exam: bilateral eye: normal inspection, PERRL, EOMI Ear Exam: left ear: bleeding (external canal, scratch jonna ) Nasal Exam: normal inspection Throat Exam: normal Neck Exam: normal inspection Cardiovascular/Respiratory Exam: chest non-tender Neurologic Exam: alert Skin Exam: normal color SpO2: 95 - Course Nursing assessment & vital signs reviewed: Yes - Progress Progress: improved Counseled pt/family regarding: diagnosis, need for follow-up - Departure Departure Disposition: Home Clinical Impression: Acute hemorrhagic otitis externa of left ear Condition: Stable Critical Care Time: No Referrals: WENDY WILLS [Primary Care Provider] - Additional Instructions: Discharge/Care Plan JAIME CURTIS was seen on 10/18/19 in the Emergency Room. The patient was counseled regarding Diagnosis,Lab results, Imaging studies, need for follow up and when to return to the Emergency Room. Prescriptions given: Discharge Note I have spoken with the patient and/or caregivers. I have explained the patient's condition, diagnosis and treatment plan based on the information available to me at this time. I have answered the patient's and/or caregiver's questions and addressed any concerns. The patient and/or caregivers have as good understanding of the patient's diagnosis, condition and treatment plan as can be expected at this point. The vital signs have been stable. The patient's condition is stable and appropriate for discharge from the emergency department. The patient will pursue further outpatient evaluation with the primary care physician or other designated or consulting physician as outlined in the discharge instructions. The patient and/or caregivers are agreeable to this plan of care and follow-up instructions have been explained in detail. The patient and/or caregivers have received these instruction. The patient/and or caregivers are aware that any significant change in condition or worsening of symptoms should prompt an immediate return to this or the closest emergency department or call 911. Prescriptions: Ciprofloxacin HCl/Dexameth [Ciprodex Otic Suspension] 7.5 ml OT QID #7.5 drops.susp
== END 2019-10-18 17:13 | disposition home or self-care (01) ==
LOC: ED 16:11
DX: H60.322 Hemorrhagic otitis externa, left ear (principal)
CPT/HCPCS: 99283

== ENCOUNTER 2019-11-09 14:50 | Emergency (ER) | payer MEDICARE, OTHER ==
[2019-11-09] MEDS ORDERED: TYLENOL 325 MG PO STA (15:05)
[2019-11-09] MEDS ORDERED: Sodium Chloride 0.9% 1000 ML 1,000 ML IV STA (15:05)
--- NOTE | 2019-11-09 15:22 | ERPHSYRPT ---
- History of Present Illness Time Seen by Provider: 11/09/19 15:19 Source: patient Exam Limitations: no limitations Patient Subjective Stated Complaint: Began having diarrhea on Sunday and Sunday, urine began burning around and went to the respiratory clinic and tested for covid which is negative, pt called Katharine Hinton on Sunday for a prescription for what she thought was a UTI, pt was placed on Macrobid and she states that she is allergic but didn't realize what she was on and took a dose last night and this morning, she usually has a rash and throws up but she has not done that this time, pt states that she hurts in her upper medial epigastric region and has a headache Triage Nursing Assessment: Pt was brought by a friend to the ER, fever, pulses normal, denies any rash or N&V, states that her urine is really dark and is only urinating small amounts, skin n/H/d, reports not taking in much liquids, denies diarrhea Physician History: Patient is 69 years old female Began having diarrhea on Sunday and Sunday, urine began burning around and went to the respiratory clinic and tested for covid which is negative, pt called Katharine Hinton on Sunday for a prescription for what she thought was a UTI, pt was placed on Macrobid and she states that she is allergic but didn't realize what she was on and took a dose last night and this morning, she usually has a rash and throws up but she has not done that this time, pt states that she hurts in her upper epigastric region and has a headache Timing/Duration: day(s) (5-6 days) Fever Severity: mild Fever Therapy 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 Associated Symptoms: abdominal pain, headache Allergies/Adverse Reactions: clarithromycin [From Biaxin] Allergy (Severe, Verified 11/09/19 15:16) Hives Coconut Allergy (Severe, Verified 11/09/19 15:16) Difficulty Breathing green dye *RETIRED-07/03/12 [Green Dye] Allergy (Mild, Verified 11/09/19 15:16) Swelling swelling ears red dye [Red Dye] Allergy (Mild, Verified 11/09/19 15:16) Swelling ears swell nitrofurantoin [From Macrobid] Allergy (Verified 11/09/19 15:16) levofloxacin [From Levaquin] Adverse Reaction (Mild, Verified 11/09/19 15:16) Joint Aches Home Medications: Zolpidem Tartrate [Ambien] 10 mg PO HSPRN PRN 08/16/15 [History] Gabapentin 1 ea TID 10/18/19 [History] Hx Tetanus, Diphtheria Vaccination/Date Given: Yes Hx Influenza Vaccination/Date Given: Yes Hx Pneumococcal Vaccination/Date Given: Yes Travel Risk - International Travel Have you traveled outside of the country in past 3 weeks: No - Coronavirus Screening Are you exhibiting any of the following symptoms?: Yes Symptoms: Fever - Review of Systems Constitutional: No Fever, No Chills Eyes: No Symptoms Ears, Nose, & Throat: No Symptoms Respiratory: No Cough, No Dyspnea Cardiac: No Chest Pain, No Edema, No Syncope Abdominal/Gastrointestinal: Abdominal Pain, No Nausea, No Vomiting, No Diarrhea Genitourinary Symptoms: No Dysuria Musculoskeletal: No Back Pain, No Neck Pain Skin: No Rash Neurological: Headache, No Dizziness, No Focal Weakness, No Sensory Changes Psychological: No Symptoms Endocrine: No Symptoms All Other Systems: Reviewed and Negative - Past Medical History Pertinent Past Medical History: Yes Neurological History: No Pertinent History ENT History: No Pertinent History Cardiac History: Other Respiratory History: Other Endocrine Medical History: Diabetes Type II, Other Musculoskeletal History: Osteoarthritis GI Medical History: Diverticulitis, Gallbladder Disease, Pancreatitis History: No Pertinent History Psycho-Social History: No Pertinent History Female Reproductive Disorders: No Pertinent History Other Medical History: bruised liver, kidney disease in the past, seasonal allergies, tri- and bi-giminie, liung ca - Past Surgical History Past Surgical History: Yes Neuro Surgical History: No Pertinent History Cardiac: No Pertinent History Respiratory: No Pertinent History Gastrointestinal: Appendectomy, Cholecystectomy, Hernia Repair Genitourinary: No Pertinent History Musculoskeletal: No Pertinent History, Joint Replacement, Orthopedic Surgery Female Surgical History: Hysterectomy, Other Other Surgical History: tonsilectomy, carpal tunnel, trigger finger X3, BLADDER SLING, colorectal, SI fusion - Social History Smoking Status: Former smoker How long have you smoked: 20 years Exposure to second hand smoke: No Drug Use: none Patient Lives Alone: Yes - Nursing Vital Signs Nursing Vital Signs: Initial Vital Signs Temperature 100.2 F 11/09/19 14:55 Pulse Rate 83 11/09/19 14:55 Blood Pressure 128/87 11/09/19 14:55 O2 Sat by Pulse Oximetry 94 L 11/09/19 14:55 Pain Scale Pain Intensity 5 - Physical Exam General Appearance: no apparent distress, alert Eye Exam: PERRL/EOMI ENT Exam: normal ENT inspection, No pharyngeal erythema, No tonsillar exudate Neck Exam: supple, full range of motion, No meningismus Respiratory Exam: normal breath sounds, lungs clear, no respiratory distress Cardiovascular/Chest Exam: normal heart sounds, regular rate/rhythm, No murmur, No edema Gastrointestinal/Abdominal Exam: soft, non tender, no distention Extremity Exam: non-tender, normal range of motion, normal inspection, normal capillary refill Neurologic Exam: alert, 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, cooperative, soap press feeder II-XII nml as tested, n ormal mood/affect, sensation nml, No motor deficits Skin Exam: normal color, warm, dry, No rash SpO2: 94 - Course Nursing assessment & vital signs reviewed: Yes - Radiology Exams Chest X-ray Interpretation: Reviewed by me, Negative (chronic changes) Ordered Tests: Active Orders 24 hr Category Date Time Status Oxygen-ED Only Nasal Cannula 2 lpm Care 11/09/19 15:05 Active CHEST 2 VIEWS (PA AND LAT) Stat Exams 11/09/19 15:05 Taken CBC W DIFF Stat Lab 11/09/19 15:24 Completed CMP Stat Lab 11/09/19 15:30 Completed Lactic Acid Stat Lab 11/09/19 15:05 Completed UA W/RFX UR CULTURE Stat Lab 11/09/19 15:47 Completed Medication Summary Discontinued Medications Generic Name Dose Route Start Last Admin Trade Name Freq PRN Reason Stop Dose Admin 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 650 mg 11/09/19 15:05 11/09/19 15:27 Tylenol 325 Mg PO 11/09/19 15:06 Not Given STAT STA Sodium Chloride 1,000 mls @ 999 mls/hr 11/09/19 15:05 11/09/19 15:27 Sodium Chloride 0.9% 1000 Ml IV 11/09/19 16:05 999 mls/hr .Q1H1M STA Administration Sodium Chloride Confirm 11/09/19 15:26 Sodium Chloride 0.9% 1000 Ml Administered 11/09/19 15:27 Dose 1,000 mls @ ud .ROUTE .STK-MED ONE Ceftriaxone Sodium/Dextrose 1 g in 50 mls @ 100 mls/hr 11/09/19 15:56 11/09/19 16:04 Rocephin 1 Gm-D5w 50 Ml Bag IV 11/09/19 16:25 100 ml/hr STAT STA 100 mls/hr Administration Ceftriaxone Sodium/Dextrose Confirm 11/09/19 16:01 Rocephin 1 Gm-D5w 50 Ml Bag Administered 11/09/19 16:02 Dose 1 g in 50 mls @ ud IV .STK-MED ONE Lab/Rad Data: Laboratory Result Diagrams 11/09/19 15:24 11/09/19 15:30 Laboratory Results 11/09/19 11/09/19 11/09/19 Range/Units 15:47 15:30 15:24 WBC 13.3 H (4.0-10.5) K/mm3 RBC 4.54 (4.1-5.4) M/mm3 Hgb 13.3 (12.0-16.0) gm/dl Hct 39.6 (35-47) % MCV 87.2 (78-100) fl MCH 29.3 (26-32) pg MCHC 33.6 (32-36) g/dl RDW 14.0 (11.5-14.0) % Plt Count 209 (150-450) K/mm3 MPV 10.9 (7.5-11.0) fl Gran % 86.5 H (36.0-66.0) % Eos # (Auto) 0.06 (0-0.5) Absolute Lymphs (auto) 1.02 (1.0-4.6) Absolute Monos (auto) 0.68 (0.0-1.3) Lymphocytes % 7.7 L (24.0-44.0) % Monocytes % 5.1 (0.0-12.0) % Eosinophils % 0.5 (0.00-5.0) % Basophils % 0.2 (0.0-0.4) % Absolute Granulocytes 11.49 H (1.4-6.9) Basophils # 0.02 (0-0.4) Sodium 138 (137-145) mmol/L Potassium 3.7 (3.5-5.1) mmol/L Chloride 104 (98-107) mmol/L Carbon Dioxide 28 (22-30) mmol/L Anion Gap 10.1 (5-15) MEQ/L BUN 9 (7-17) mg/dL Creatinine 0.68 (0.52-1.04) mg/dL Estimated GFR > 60.0 ML/MIN Glucose 135 H (74-106) mg/dL Lactic Acid (0.4-2.0) Calcium 8.7 (8.4-10.2) mg/dL Total Bilirubin 1.20 (0.2-1.3) mg/dL AST 26 (14-36) U/L ALT 40 H (0-35) U/L Alkaline Phosphatase 156 H (38-126) U/L Serum Total Protein 6.3 (6.3-8.2) g/dL Albumin 3.6 (3.5-5.0) g/dL Urine Color YELLOW (YELLOW) Urine Appearance CLEAR (CLEAR) Urine pH 7.0 (5-6) Ur Specific [place] 1.005 (1.005-1.025) Urine Protein NEGATIVE (Negative) Urine Ketones NEGATIVE (NEGATIVE) Urine Blood NEGATIVE (0-5) West/ul Urine Nitrite NEGATIVE (NEGATIVE) Urine Bilirubin NEGATIVE (NEGATIVE) Urine Urobilinogen NEGATIVE (0-1) mg/dL Ur Leukocyte Esterase NEGATIVE (NEGATIVE) Urine WBC (Auto) NONE (0-5) /HPF Urine RBC (Auto) NONE SEEN (0-2) /HPF U Epithel Cells (Auto) NONE (FEW) /HPF Urine Bacteria (Auto) NONE (NEGATIVE) /HPF Urine Mucus (Auto) SLIGHT (NEGATIVE) /HPF Urine Culture Reflexed NO (NO) Urine Glucose NEGATIVE (NEGATIVE) mg/dL 08/30/20 Range/Units 15:05 WBC (4.0-10.5) K/mm3 RBC (4.1-5.4) M/mm3 Hgb (12.0-16.0) gm/dl Hct (35-47) % MCV (78-100) fl MCH (26-32) pg MCHC (32-36) g/dl RDW (11.5-14.0) % Plt Count (150-450) K/mm3 MPV (7.5-11.0) fl Gran % (36.0-66.0) % Eos # (Auto) (0-0.5) Absolute Lymphs (auto) (1.0-4.6) Absolute Monos (auto) (0.0-1.3) Lymphocytes % (24.0-44.0) % Monocytes % (0.0-12.0) % Eosinophils % (0.00-5.0) % Basophils % (0.0-0.4) % Absolute Granulocytes (1.4-6.9) Basophils # (0-0.4) Sodium (137-145) mmol/L Potassium (3.5-5.1) mmol/L Chloride (98-107) mmol/L Carbon Dioxide (22-30) mmol/L Anion Gap (5-15) MEQ/L BUN (7-17) mg/dL Creatinine (0.52-1.04) mg/dL Estimated GFR ML/MIN Glucose (74-106) mg/dL Lactic Acid 1.1 (0.4-2.0) Calcium (8.4-10.2) mg/dL Total Bilirubin (0.2-1.3) mg/dL AST (14-36) U/L ALT (0-35) U/L Alkaline Phosphatase (38-126) U/L Serum Total Protein (6.3-8.2) g/dL Albumin (3.5-5.0) g/dL Urine Color (YELLOW) Urine Appearance (CLEAR) Urine pH (5-6) Ur Specific [place] (1.005-1.025) Urine Protein (Negative) Urine Ketones (NEGATIVE) Urine Blood (0-5) West/ul Urine Nitrite (NEGATIVE) Urine Bilirubin (NEGATIVE) Urine Urobilinogen (0-1) mg/dL Ur Leukocyte Esterase (NEGATIVE) Urine WBC (Auto) (0-5) /HPF Urine RBC (Auto) (0-2) /HPF U Epithel Cells (Auto) (FEW) /HPF Urine Bacteria (Auto) (NEGATIVE) /HPF Urine Mucus (Auto) (NEGATIVE) /HPF Urine Culture Reflexed (NO) Urine Glucose (NEGATIVE) mg/dL - Progress Progress: improved Counseled pt/family regarding: lab results, diagnosis, need for follow-up, rad results - Departure Departure Disposition: Home Clinical Impression: UTI (urinary tract infection) Qualifiers: Urinary tract infection type: site unspecified Hematuria presence: without hematuria Qualified Code(s): N39.0 - Urinary tract infection, site not specified Condition: Stable Critical Care Time: No Referrals: WENDY HINTON [Primary Care Provider] - Instructions: Fever, Adult (DC) Additional Instructions: Discharge/Care Plan JAIME CURTIS was seen on 11/09/19 in the Emergency Room. The patient was counseled regarding Diagnosis,Lab results, Imaging studies, need for follow up and when to return to the Emergency Room. Prescriptions given: Discharge Note I have spoken with the patient and/or caregivers. I have explained the patient's condition, diagnosis and treatment plan based on the information available to me at this time. I have answered the patient's and/or caregiver's questions and addressed any concerns. The patient and/or caregivers have as good understanding of the patient's diagnosis, condition and treatment plan as can be expected at this point. The vital signs have been stable. The patient's condition is stable and appropriate for discharge from the emergency department. The patient will pursue further outpatient evaluation with the primary care physician or other designated or consulting physician as outlined in the discharge instructions. The patient and/or caregivers are agreeable to this plan of care and follow-up instructions have been explained in detail. The patient and/or caregivers have received these instruction. The patient/and or caregivers are aware that any significant change in condition or worsening of symptoms sh ould prompt an immediate return to this or the closest emergency department or call 911. JAIME CURTIS was seen on 11/09/19 n the Emergency Room. At that time you were treated for an emergent condition, during your visit Laboratory, Radiology and/or other procedures may have been ordered. It is very important that you follow-up with your Primary Care Physician WENDY HINTON within the next 24-48 hours to review your Emergency Room visit and the final results of testing that was ordered. Some test results such as Urine Cultures, Blood Cultures, and other cultures if ordered will not be finalized for 24-48 hours. If you do not have a Primary Care Provider please call the medical records department at [phone] ext [phone] to obtain a copy of your results or you may sign into our patient portal to obtain these results by visiting us @ [email or web address] and completing the following steps: 1. Click on the Patient Portal link 2. Click the Patient Self Enrollment Link to complete the enrollment form and entering your 3. Once the enrollment form is completed you will receive an email with a temporary ID and password at the email address you provided. 4. Next choose a user name and password. Your user name must be at least 4 characters long and your password must be at least 4 characters long. 5. Choose a security question from the list and provide your answer to the question. If you already have signed into the Health Portal you may access your Health Care Information 02/10 by the following steps: 1. Login to our website @ [email or web address]) 2. Enter your original user name and password. FAQS The [facility] Health Portal is an online tool that contains your Lab Results, Radiology Reports, Visit History, Discharge Instructions and Health Summary Lab and Radiology Results will not be available for 72 hours on the portal. The Portal is a secure site, passwords are encryted and URLs are re-written so they cannot be copied and pasted. You and authorized family members are the only ones who can access your Portal. Also there is a timeout feature that protects your information if you leave the Portal page open. If you have technical difficulty please use the Contact Us link on the page this will allow you to submit any questions you have regarding the Portal or you may contact the Medical Record Department at [phone]. Prescriptions: Cephalexin Mh 500 mg [Keflex 500 mg] 500 mg PO Q6H #40 capsule
[2019-11-09] MEDS ORDERED: Sodium Chloride 0.9% 1000 ML 1,000 ML ONE (15:26)
[2019-11-09 15:53] LABS: Absolute Neutrophil Ct (ANC) 11.49 (1.4-6.9); BASOPHIL % 0.2 % (0.0-0.4); Basophil (Absolute #) 0.02 (0-0.4); Eosinophil % 0.5 % (0.00-5.0); Eosinophil (Absolute #) 0.06 (0-0.5); Hematocrit 39.6 % (35-47); Hemoglobin 13.3 gm/dl (12.0-16.0); Lymphocyte (Absolute #) 1.02 (1.0-4.6); Lymphocytes % 7.7 % (24.0-44.0); Mean Cell Volume 87.2 fl (78-100); Mean Corpuscular Hemoglobin 29.3 pg (26-32); Mean Corpuscular Hgb Concent. 33.6 g/dl (32-36); Mean Platelet Volume 10.9 fl (7.5-11.0); Monocyte (Absolute #) 0.68 (0.0-1.3); Monocytes % 5.1 % (0.0-12.0); Neutrophil % 86.5 % (36.0-66.0); Platelet Count 209 K/mm3 (150-450); Red Blood Count 4.54 M/mm3 (4.1-5.4); White Blood Count 13.3 K/mm3 (4.0-10.5)
[2019-11-09] MEDS ORDERED: ROCEPHIN 1 Gm-D5w 50 ml Bag** 1 G/50 ML IVPB IV STA (15:56)
[2019-11-09] MEDS ORDERED: ROCEPHIN 1 Gm-D5w 50 ml Bag** 1 G/50 ML IVPB IV ONE (16:01)
[2019-11-09 16:03] LABS: Appearance CLEAR (CLEAR); Bilirubin NEGATIVE (NEGATIVE); Blood NEGATIVE Ery/ul (0-5); Glucose NEGATIVE (NEGATIVE); Ketones NEGATIVE (NEGATIVE); Leukocyte Esterase NEGATIVE (NEGATIVE); Mucus SLIGHT /HPF (NEGATIVE); Nitrite NEGATIVE (NEGATIVE); Protein,Urine Dip NEGATIVE (Negative); Specific Gravity 1.005 (1.005-1.025); Urobilinogen NEGATIVE mg/dL (0-1)
[2019-11-09 16:06] LABS: ALBUMIN 3.6 g/dL (3.5-5.0); ALKALINE PHOSPHATASE 156 U/L (38-126); ANION GAP 10.1 MEQ/L (5-15); BLOOD UREA NITROGEN 9 mg/dL (7-17); CHLORIDE 104 mmol/L (98-107); Calcium 8.7 mg/dL (8.4-10.2); Carbon Dioxide 28 mmol/L (22-30); Creatinine 1 0.68 mg/dL (0.52-1.04); EST GLOMERULAR FILTRATION RATE > 60.0 ML/MIN; Glucose 135 mg/dL (74-106); Potassium 3.7 mmol/L (3.5-5.1); SGOT/AST 26 U/L (14-36); SGPT/ALT 40 U/L (0-35); SODIUM 138 mmol/L (137-145); Total Protein 6.3 g/dL (6.3-8.2)
[2019-11-09 16:07] VITALS: BP 155/69; PULSE 71
[2019-11-09 16:08] LABS: RBC NONE SEEN /HPF (0-2)
[2019-11-09 16:45] VITALS: O2SAT 94
[2019-11-09] MEDS ORDERED: TORAdol 30 mg Injection IV ONE (16:45)
[2019-11-09] MEDS ORDERED: TORAdol 30 mg Injection ONE (16:46)
--- NOTE | 2019-11-09 20:19 | XRAY ---
Indication: Fever. Possible UTI. Comparison: April 23, 2019. PA/lateral chest again demonstrates right upper lobectomy postsurgical changes. No focal infiltrate, consolidation, or large effusion. Heart is not enlarged. Stable hilar calcified nodes. Bony thorax intact again with mild osteopenia and degenerative changes. Impression: Continued negative chest with chronic features.
== END 2019-11-09 17:18 | disposition home or self-care (01) ==
LOC: ED 14:50
DX: N39.0 Urinary tract infection, site not specified (principal)
CPT/HCPCS: 36000; 36415; 71046; 80053; 81001; 83605; 85025; 96360; 96365; 96374; 96375; 99284; J0696; J1885

== ENCOUNTER 2020-01-12 16:07 | Emergency (ER) | payer MEDICARE, OTHER ==
--- NOTE | 2020-01-12 16:11 | ERPHSYRPT ---
- History of Present Illness Time Seen by Provider: 01/12/20 16:11 Source: patient Exam Limitations: no limitations Physician History: This is a right-handed 69-year-old female who woke up Sunday morning with redness and warmth to the right elbow with some swelling. 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 She came in this afternoon for evaluation. She does not believe she broke anything she just wanted to make sure that she was placed on some antibiotics because of her history of lung cancer. Patient has not put anything on her elbow to aid in compressing the site. Occurred: yesterday Method of Injury: unknown Quality: aching Severity of Pain-Max: mild Severity of Pain-Current: mild Extremities Pain Location: elbow: right Modifying Factors: Improves With: movement Associated Symptoms: none, No chills, No fever Allergies/Adverse Reactions: clarithromycin [From Biaxin] Allergy (Severe, Verified 01/12/20 16:29) Hives Coconut Allergy (Severe, Verified 01/12/20 16:29) Difficulty Breathing green dye *RETIRED-07/03/12 [Green Dye] Allergy (Mild, Verified 01/12/20 16:29) Swelling swelling ears red dye [Red Dye] Allergy (Mild, Verified 01/12/20 16:29) Swelling ears swell nitrofurantoin [From Macrobid] Allergy (Verified 01/12/20 16:29) levofloxacin [From Levaquin] Adverse Reaction (Mild, Verified 01/12/20 16:29) Joint Aches Home Medications: Zolpidem Tartrate [Ambien] 10 mg PO HSPRN PRN 08/16/15 [History] Gabapentin 600 mg PO BID 10/18/19 [History] Hx Tetanus, Diphtheria Vaccination/Date Given: Yes Hx Influenza Vaccination/Date Given: Yes Hx Pneumococcal Vaccination/Date Given: Yes Travel Risk - International Travel Have you traveled outside of the country in past 3 weeks: No - Coronavirus Screening Are you exhibiting any of the following symptoms?: No Close contact with a COVID-19 positive Pt in past 14-21 Days: No - Review of Systems Constitutional: No Symptoms Eyes: No Symptoms Ears, Nose, & Throat: No Symptoms Respiratory: No Symptoms Cardiac: No Symptoms Abdominal/Gastrointestinal: No Symptoms Genitourinary Symptoms: No Symptoms Musculoskeletal: Joint Pain (Right elbow), Joint Swelling (Right elbow) Skin: Cellulitis (Mild right elbow), Other (Small amount of ballotable fluid present at the elbow on the right side) Neurological: No Symptoms Psychological: No Symptoms Endocrine: No Symptoms Hematologic/Lymphatic: No Symptoms Immunological/Allergic: No Symptoms All Other Systems: Reviewed and Negative - Past Medical History Pertinent Past Medical History: Yes Neurological History: No Pertinent History ENT History: No Pertinent History Cardiac History: Arrhythmia, Other Respiratory History: Other Endocrine Medical History: Diabetes Type II, Other Musculoskeletal History: Osteoarthritis GI Medical History: Diverticulitis, Gallbladder Disease, Pancreatitis History: No Pertinent History Psycho-Social History: No Pertinent History Female Reproductive Disorders: No Pertinent History Other Medical History: bruised liver, kidney disease in the past, seasonal allergies, liung ca - Past Surgical History Past Surgical History: Yes Neuro Surgical History: No Pertinent History Cardiac: No Pertinent History Respiratory: No Pertinent History Gastrointestinal: Appendectomy, Cholecystectomy, Hernia Repair Genitourinary: No Pertinent History Musculoskeletal: No Pertinent History, Joint Replacement, Orthopedic Surgery Female Surgical History: Hysterectomy, Other Other Surgical History: tonsilectomy, carpal tunnel, trigger finger X3, BLADDER SLING, colorectal, SI fusion - Social History Smoking Status: Former smoker How long have you smoked: 20 years Exposure to second hand smoke: No Drug Use: none Patient Lives Alone: Yes - Nursing Vital Signs Nursing Vital Signs: Initial Vital Signs Temperature 98.1 F 01/12/20 16:21 Pulse Rate 61 01/12/20 16:21 Blood Pressure 136/69 01/12/20 16:21 O2 Sat by Pulse Oximetry 98 01/12/20 16:21 Pain Scale Pain Intensity 7 - Physical Exam General Appearance: no apparent distress, alert Eyes, Ears, Nose, Throat Exam: normal ENT inspection, moist mucous membranes Neck Exam: normal inspection, non-tender, supple, full range of motion Cardiovascular/Respiratory Exam: chest non-tender, no respiratory distress Abdominal Exam: non-tender Back Exam: normal inspection, normal range of motion, No CVA tenderness, No vertebral tenderness Shoulder Exam: normal inspection, non-tender, no evidence of injury, normal ROM Elbow/Forearm Exam: normal ROM, soft tissue tenderness, swelling (Right elbow with mild ballotable fluid collection. There is some redness and warmth overlying this area.) Wrist Exam: normal inspection Hand Exam: normal inspection, non-tender, no evidence of injury, normal ROM Neuro/Tendon Exam: normal sensation, normal motor functions, normal tendon functions Mental Status Exam: alert, 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, cooperative Skin Exam: other (Small localized area of cellulitis overlying the right elbow) SpO2 Interpretation: normal O2 Delivery: Room Air - Course Nursing assessment & vital signs reviewed: Yes Ordered Tests: Active Orders 24 hr Category Date Time Status Luiz Bandage Application -[facility] STAT Care 01/12/20 16:44 Active Medication Summary Discontinued Medications Generic Name Dose Route Start Last Admin Trade Name Freq PRN Reason Stop Dose Admin Cephalexin HCl 500 mg 01/12/20 16:43 Keflex 500 Mg PO 01/12/20 16:44 STAT ONE - Progress Counseled pt/family regarding: diagnosis, need for follow-up - Departure Departure Disposition: Home Clinical Impression: Bursitis of right elbow Condition: Stable Critical Care Time: No Referrals: WENDY WILLS [Primary Care Provider] - Additional Instructions: Use Luiz wrap for compression of right elbow fluid collection. Take your antibiotic as prescribed. Follow-up with the orthopedic clinic here at [facility] at 10:00 tomorrow morning for further management. Forms: Work/School Release Form
[2020-01-12 16:29] VITALS: BP 136/69; PULSE 61; O2SAT 98
[2020-01-12] MEDS ORDERED: KEFLEX 500 MG ONE (16:55)
[2020-01-12] MEDS: KEFLEX 500 MG PO ONE (16:56)
== END 2020-01-12 17:09 | disposition home or self-care (01) ==
LOC: ED 16:07
DX: M70.31 Other bursitis of elbow, right elbow (principal)
CPT/HCPCS: 99283; A9270-GY

== ENCOUNTER 2020-07-26 15:21 | Emergency (ER) | payer MEDICARE, OTHER ==
[2020-07-26 15:40] VITALS: O2SAT 98
[2020-07-26 16:21] LABS: Absolute Neutrophil Ct (ANC) 4.26 (1.4-6.9); BASOPHIL % 0.4 % (0.0-0.4); Basophil (Absolute #) 0.03 (0-0.4); Eosinophil % 5.8 % (0.00-5.0); Eosinophil (Absolute #) 0.39 (0-0.5); Hematocrit 39.9 % (35-47); Hemoglobin 12.9 gm/dl (12.0-16.0); Lymphocyte (Absolute #) 1.48 (1.0-4.6); Mean Cell Volume 88.9 fl (78-100); Mean Corpuscular Hemoglobin 28.7 pg (26-32); Mean Corpuscular Hgb Concent. 32.3 g/dl (32-36); Mean Platelet Volume 10.3 fl (7.5-11.0); Monocyte (Absolute #) 0.58 (0.0-1.3); Monocytes % 8.6 % (0.0-12.0); Neutrophil % 63.2 % (36.0-66.0); Platelet Count 265 K/mm3 (150-450); Red Blood Count 4.49 M/mm3 (4.1-5.4); Red Cell Distribution Width 14.1 % (11.5-14.0); White Blood Count 6.7 K/mm3 (4.0-10.5)
[2020-07-26 16:36] LABS: ALBUMIN 3.9 g/dL (3.5-5.0); ALKALINE PHOSPHATASE 129 U/L (38-126); AMYLASE 53 U/L (30-110); BLOOD UREA NITROGEN 20 mg/dL (7-17); CHLORIDE 100 mmol/L (98-107); Calcium 8.9 mg/dL (8.4-10.2); Carbon Dioxide 28 mmol/L (22-30); Creatinine 1 0.81 mg/dL (0.52-1.04); EST GLOMERULAR FILTRATION RATE > 60.0 ML/MIN; Glucose 134 mg/dL (74-106); LIPASE 90 U/L (23-300); SGOT/AST 32 U/L (14-36); SGPT/ALT 23 U/L (0-35); SODIUM 138 mmol/L (137-145); Total Protein 6.8 g/dL (6.3-8.2)
--- NOTE | 2020-07-26 16:37 | ERPHSYRPT ---
- History of Present Illness Historian: patient Patient Subjective Stated Complaint: Abdominal pain Triage Nursing Assessment: Patient ambulated back to ED and transferred self to bed. Patient A+O X3. Patient's skin pink, warm and dry. Patient states she started having lower abdominal pain and back pain that started around 1000 today. Patient states she is having trouble urinating with dysuria. Abdomen soft and round with BS X 4. Patient complains of nausea, but denies vomiting or diarrhea. Patient is 10 days post op left wedge lung resection. Physician History: 69 yo wf w supra-pubic pain x 5hr. Pt complains of dysuria/frequency/N/ mild CVA pain wo vomiting/diarrhea/melena/hematochezia. Pt has a MELVA wedge resection 10 days ago in [facility]. She denies fever/cough/dyspnea. Timing/Duration: today (5hr) Activities at Onset: rest Quality: burning Abdominal Pain Onset Location: suprapubic Pain Radiation: no radiation Severity of Pain-Max: severe Severity of Pain-Current: severe Modifying Factors: Improves With: nothing, urinating Associated Symptoms: back, nausea, No chest pain, No diaphoresis, No diarrhea, No fever/chills, No fatigue, No headache, No heartburn, No loss of appetite, No neck pain, No rash, No shortness of breath, No syncope, No vomiting, No weakness Previous symptoms: same symptoms as today Allergies/Adverse Reactions: clarithromycin [From Biaxin] Allergy (Severe, Verified 07/26/20 15:31) Hives Coconut Allergy (Severe, Verified 07/26/20 15:31) Difficulty Breathing green dye *RETIRED-07/03/12 [Green Dye] Allergy (Mild, Verified 07/26/20 15:31) Swelling swelling ears red dye [Red Dye] Allergy (Mild, Verified 07/26/20 15:31) Swelling ears swell nitrofurantoin [From Macrobid] Allergy (Verified 07/26/20 15:31) levofloxacin [From Levaquin] Adverse Reaction (Mild, Verified 07/26/20 15:31) Joint Aches Home Medications: Zolpidem Tartrate [Ambien] 10 mg PO HSPRN PRN 08/16/15 [History] Gabapentin 600 mg PO BID 10/18/19 [History] Amlodipine Besylate 1 tab PO DAILY 07/26/20 [History] Benzonatate 1 tab PO DAILY 07/26/20 [History] Fexofenadine HCl [Sonia] 1 tab PO DAILY 07/26/20 [History] Hydrochlorothiazide 1 tab PO DAILY 07/26/20 [History] Hx Tetanus, Diphtheria Vaccination/Date Given: Yes Hx Influenza Vaccination/Date Given: Yes Hx Pneumococcal Vaccination/Date Given: Yes Immunizations Up to Date: Yes Travel Risk - International Travel Have you traveled outside of the country in past 3 weeks: No - Coronavirus Screening Are you exhibiting any of the following symptoms?: No Close contact with a COVID-19 positive Pt in past 14-21 Days: No - Vaccine Status Have you recieved a Covid-19 vaccination: 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[employer] - Vaccination Dates Date of 2cond Vaccination (if applicable): apr 2020 - Review of Systems Constitutional: No Symptoms Eyes: No Symptoms Ears, Nose, & Throat: No Symptoms Respiratory: No Symptoms Cardiac: No Symptoms Abdominal/Gastrointestinal: Abdominal Pain, Nausea, No Vomiting, No Diarrhea, No Constipation, No Hematemesis, No Hematochezia, No Melena, No Dysphagia, No Appetite Changes Genitourinary Symptoms: No Symptoms, Dysuria, Frequency, No Hematuria, No Urgency Musculoskeletal: No Symptoms Skin: No Symptoms Neurological: No Symptoms, Sensory Changes Endocrine: No Symptoms Hematologic/Lymphatic: No Symptoms Immunological/Allergic: No Symptoms - Past Medical History Pertinent Past Medical History: Yes Neurological History: No Pertinent History ENT History: No Pertinent History Cardiac History: Arrhythmia, Other Respiratory History: Other Endocrine Medical History: Diabetes Type II, Other Musculoskeletal History: Osteoarthritis GI Medical History: Diverticulitis, Gallbladder Disease, Pancreatitis History: No Pertinent History Psycho-Social History: No Pertinent History Female Reproductive Disorders: No Pertinent History Other Medical History: bruised liver, kidney disease in the past, seasonal allergies, lung ca - Past Surgical History Past Surgical History: Yes Neuro Surgical History: No Pertinent History Cardiac: No Pertinent History Respiratory: No Pertinent History Gastrointestinal: Appendectomy, Cholecystectomy, Hernia Repair Genitourinary: No Pertinent History Musculoskeletal: No Pertinent History, Joint Replacement, Orthopedic Surgery Female Surgical History: Hysterectomy, Other Other Surgical History: tonsilectomy, carpal tunnel, trigger finger X3, BLADDER SLING, colorectal, SI fusion, left wedge resection to lungs July 16, 2020 - Social History Smoking Status: Former smoker How long have you smoked: 20 years Exposure to second hand smoke: No Drug Use: none Patient Lives Alone: Yes - Female History Hx Now: No - Nursing Vital Signs Nursing Vital Signs: Initial Vital Signs Temperature 98.7 F 07/26/20 15:32 Pulse Rate 70 07/26/20 15:32 Respiratory Rate 18 07/26/20 15:32 Blood Pressure 188/86 07/26/20 15:32 O2 Sat by Pulse Oximetry 98 07/26/20 15:32 Pain Scale Pain Intensity 5 - Physical Exam General Appearance: no apparent distress Eye Exam: PERRL/EOMI, eyes nml inspection Ears, Nose, Throat Exam: normal ENT inspection, TMs normal, pharynx normal, moist mucous membranes Neck Exam: normal inspection, non-tender, supple, full range of motion, No meningismus, No mass, No Brudzinski, No Kernig's Respiratory Exam: normal breath sounds, lungs clear, airway intact, No respiratory distress Cardiovascular Exam: regular rate/rhythm, normal heart sounds, normal peripheral pulses, edema, No murmur Gastrointestinal/Abdomen Exam: soft, normal bowel sounds, tenderness (Supra- pubic wo guarding) Extremity Exam: normal inspection, normal range of motion Skin Exam: normal color, warm, dry Lymphatic Exam: No adenopathy SpO2 Interpretation: normal SpO2: 98 O2 Delivery: Room Air - Course Nursing assessment & vital signs reviewed: Yes Ordered Tests: Active Orders 24 hr Category Date Time Status AMYLASE Stat Lab 07/26/20 16:10 Completed CBC W DIFF Stat Lab 07/26/20 16:10 Completed CMP Stat Lab 07/26/20 16:10 Completed CULTURE,URINE Stat Lab 07/26/20 16:08 Received LIPASE Stat Lab 07/26/20 16:10 Completed Lactic Acid Stat Lab 07/26/20 16:06 Completed UA W/RFX UR CULTURE Stat Lab 07/26/20 16:08 Completed Medication Summary Discontinued Medications Generic Name Dose Route Start Last Admin Trade Name Freq PRN Reason Stop Dose Admin Ceftriaxone Sodium/Dextrose 1 g in 50 mls @ 100 mls/hr 07/26/20 17:24 18:16 Rocephin 1 Gm-D5w 50 Ml Bag IV 07/26/20 17:53 Infused STAT STA Infusion Sodium Chloride 1,000 mls @ 999 mls/hr 07/26/20 17:25 07/26/20 17:42 Sodium Chloride 0.9% 1000 Ml IV 07/26/20 18:25 999 mls/hr .Q1H1M STA Administration Sodium Chloride Confirm 07/26/20 17:40 Sodium Chloride 0.9% 1000 Ml Administered 07/26/20 17:41 Dose 1,000 mls @ ud .ROUTE .STK-MED ONE Ceftriaxone Sodium/Dextrose Confirm 07/26/20 17:40 Rocephin 1 Gm-D5w 50 Ml Bag Administered 07/26/20 17:41 Dose 1 g in 50 mls @ ud IV .STK-MED ONE Ketorolac Tromethamine 15 mg 07/26/20 17:25 07/26/20 17:42 Toradol 30 Mg Injection IV 07/26/20 17:26 15 mg STAT ONE Administration Ketorolac Tromethamine Confirm 07/26/20 17:40 Toradol 30 Mg Injection Administered 07/26/20 17:41 Dose 30 mg .ROUTE .STK-MED ONE Lab/Rad Data: Laboratory Result Diagrams 07/26/20 16:10 07/26/20 16:10 Laboratory Results 07/26/20 07/26/20 07/26/20 Range/Units 16:10 16:10 16:08 WBC 6.7 (4.0-10.5) K/mm3 RBC 4.49 (4.1-5.4) M/mm3 Hgb 12.9 (12.0-16.0) gm/dl Hct 39.9 (35-47) % MCV 88.9 (78-100) fl MCH 28.7 (26-32) pg MCHC 32.3 (32-36) g/dl RDW 14.1 H (11.5-14.0) % Plt Count 265 (150-450) K/mm3 MPV 10.3 (7.5-11.0) fl Gran % 63.2 (36.0-66.0) % Eos # (Auto) 0.39 (0-0.5) Absolute Lymphs (auto) 1.48 (1.0-4.6) Absolute Monos (auto) 0.58 (0.0-1.3) Lymphocytes % 22.0 L (24.0-44.0) % Monocytes % 8.6 (0.0-12.0) % Eosinophils % 5.8 H (0.00-5.0) % Basophils % 0.4 (0.0-0.4) % Absolute Granulocytes 4.26 (1.4-6.9) Basophils # 0.03 (0-0.4) Sodium 138 (137-145) mmol/L Potassium 4.0 (3.5-5.1) mmol/L Chloride 100 (98-107) mmol/L Carbon Dioxide 28 (22-30) mmol/L Anion Gap 13.0 (5-15) MEQ/L BUN 20 H (7-17) mg/dL Creatinine 0.81 (0.52-1.04) mg/dL Estimated GFR > 60.0 ML/MIN Glucose 134 H (74-106) mg/dL Lactic Acid (0.4-2.0) Calcium 8.9 (8.4-10.2) mg/dL Total Bilirubin 0.50 (0.2-1.3) mg/dL AST 32 (14-36) U/L ALT 23 (0-35) U/L Alkaline Phosphatase 129 H (38-126) U/L Serum Total Protein 6.8 (6.3-8.2) g/dL Albumin 3.9 (3.5-5.0) g/dL Amylase 53 (30-110) U/L Lipase 90 (23-300) U/L Urine Color YELLOW (YELLOW) Urine Appearance CLOUDY (CLEAR) Urine pH 5.0 (5-6) Ur Specific Snyder 1.030 (1.005-1.025) Urine Protein 100 (Negative) Urine Ketones TRACE (NEGATIVE) Urine Blood NEGATIVE (0-5) West/ul Urine Nitrite NEGATIVE (NEGATIVE) Urine Bilirubin NEGATIVE (NEGATIVE) Urine Urobilinogen 2 (0-1) mg/dL Ur Leukocyte Esterase MODERATE (NEGATIVE) Urine WBC (Auto) >100 (0-5) /HPF Urine RBC (Auto) 16-25 (0-2) /HPF U Epithel Cells (Auto) NONE (FEW) /HPF Urine Bacteria (Auto) FEW (NEGATIVE) /HPF Urine Mucus (Auto) SLIGHT (NEGATIVE) /HPF Urine Culture Reflexed YES (NO) Urine Glucose NEGATIVE (NEGATIVE) mg/dL 07/26/20 Range/Units 16:06 WBC (4.0-10.5) K/mm3 RBC (4.1-5.4) M/mm3 Hgb (12.0-16.0) gm/dl Hct (35-47) % MCV (78-100) fl MCH (26-32) pg MCHC (32-36) g/dl RDW (11.5-14.0) % Plt Count (150-450) K/mm3 MPV (7.5-11.0) fl Gran % (36.0-66.0) % Eos # (Auto) (0-0.5) Absolute Lymphs (auto) (1.0-4.6) Absolute Monos (auto) (0.0-1.3) Lymphocytes % (24.0-44.0) % Monocytes % (0.0-12.0) % Eosinophils % (0.00-5.0) % Basophils % (0.0-0.4) % Absolute Granulocytes (1.4-6.9) Basophils # (0-0.4) Sodium (137-145) mmol/L Potassium (3.5-5.1) mmol/L Chloride (98-107) mmol/L Carbon Dioxide (22-30) mmol/L Anion Gap (5-15) MEQ/L BUN (7-17) mg/dL Creatinine (0.52-1.04) mg/dL Estimated GFR ML/MIN Glucose (74-106) mg/dL Lactic Acid 1.3 (0.4-2.0) Calcium (8.4-10.2) mg/dL Total Bilirubin (0.2-1.3) mg/dL AST (14-36) U/L ALT (0-35) U/L Alkaline Phosphatase (38-126) U/L Serum Total Protein (6.3-8.2) g/dL Albumin (3.5-5.0) g/dL Amylase (30-110) U/L Lipase (23-300) U/L Urine Color (YELLOW) Urine Appearance (CLEAR) Urine pH (5-6) Ur Specific Snyder (1.005-1.025) Urine Protein (Negative) Urine Ketones (NEGATIVE) Urine Blood (0-5) West/ul Urine Nitrite (NEGATIVE) Urine Bilirubin (NEGATIVE) Urine Urobilinogen (0-1) mg/dL Ur Leukocyte Esterase (NEGATIVE) Urine WBC (Auto) (0-5) /HPF Urine RBC (Auto) (0-2) /HPF U Epithel Cells (Auto) (FEW) /HPF Urine Bacteria (Auto) (NEGATIVE) /HPF Urine Mucus (Auto) (NEGATIVE) /HPF Urine Culture Reflexed (NO) Urine Glucose (NEGATIVE) mg/dL - Progress Progress Note: 07/26/20 17:26 1L NS bolus/1gm IV Rocephin/15mg IV Toradol Counseled pt/family regarding: lab results, diagnosis, need for follow-up - Departure Departure Disposition: Home Clinical Impression: UTI (urinary tract infection) Condition: Stable Critical Care Time: No Referrals: WENDY WILLS [Primary Care Provider] - Instructions: Urinary Tract Infection, Adult (DC) Additional Instructions: Fluids Start Bactrim twice a day Follow up with your family MD in 1-2 days Return to ER for increasing pain or temperature greater than 100.5 Prescriptions: Sulfamethoxazole/Trimethoprim [Bactrim Ds Tablet] 1 each PO BID #10 tablet
[2020-07-26 17:02] LABS: Appearance CLOUDY (CLEAR); Bacteria FEW /HPF (NEGATIVE); Bilirubin NEGATIVE (NEGATIVE); Blood NEGATIVE Ery/ul (0-5); Glucose NEGATIVE (NEGATIVE); Ketones TRACE (NEGATIVE); Leukocyte Esterase MODERATE (NEGATIVE); Mucus SLIGHT /HPF (NEGATIVE); Nitrite NEGATIVE (NEGATIVE); Protein,Urine Dip 100 (Negative); Urobilinogen 2 mg/dL (0-1); WBC >100 /HPF (0-5)
[2020-07-26] MEDS ORDERED: ROCEPHIN 1 Gm-D5w 50 ml Bag** 1 G/50 ML IVPB IV STA (17:24)
[2020-07-26] MEDS ORDERED: TORAdol 30 mg Injection IV ONE (17:25)
[2020-07-26] MEDS ORDERED: Sodium Chloride 0.9% 1000 ML 1,000 ML IV STA (17:25)
[2020-07-26] MEDS ORDERED: ROCEPHIN 1 Gm-D5w 50 ml Bag** 1 G/50 ML IVPB IV ONE (17:40)
[2020-07-26] MEDS ORDERED: TORAdol 30 mg Injection ONE (17:40)
[2020-07-26] MEDS ORDERED: Sodium Chloride 0.9% 1000 ML 1,000 ML ONE (17:40)
[2020-07-26 18:39] VITALS: BP 157/66; PULSE 68
== END 2020-07-26 18:30 | disposition home or self-care (01) ==
LOC: ED 15:21
DX: N39.0 Urinary tract infection, site not specified (principal); Z79.899 Other long term (current) drug therapy; E11.9 Type 2 diabetes mellitus without complications
CPT/HCPCS: 36415; 80053; 81001; 82150; 83605; 83690; 85025; 87077; 87086; 87186; 96365; 96374; 99284; J0696; J1885

== ENCOUNTER 2021-05-29 18:52 | Emergency (ER) | payer MEDICARE, OTHER ==
[2021-05-29] MEDS ORDERED: ROCEPHIN 1 Gm-D5w 50 ml Bag** 1 G/50 ML IVPB IV STA (19:24)
[2021-05-29] MEDS ORDERED: PROVENTIL 2.5 MG/3 ML NEB IH ONE ×3 (19:24→20:10)
[2021-05-29] MEDS ORDERED: solu-MEDROL 125 MG, Sterile H2O 10 ml 2 ML IV ONE ×2 (19:24)
--- NOTE | 2021-05-29 19:24 | ERPHSYRPT ---
- History of Present Illness Time Seen by Provider: 05/29/21 19:10 Source: patient Exam Limitations: no limitations Patient Subjective Stated Complaint: pt states "I started this cough yesterday. I have lung cancer." Triage Nursing Assessment: pt ambulated into the er; pt is axo x4; c/o cough; pt states SOB; pt states hx lung cancer; pt states 7/10 to ribs with coughing; wheezing throughout lung villgeas; clear heart tone; dry hacking cough present; vital wnl Physician History: This is a 70-year-old obese white female patient of nurse practitioner Jamaal who has a history of lung cancer and is a former smoker and is status post an upper lung lobectomy and lung wedge resection in the recent past and presents with 1 day history of coughing and shortness of breath. Patient has a history of recurrent bronchitis and recurrent pneumonias. Patient has a history of seasonal allergies, hypertension and diabetes. Patient denies chest pain. She denies abdominal pain she denies fever and chills. She denies nausea vomiting diarrhea. Timing/Duration: yesterday Cough Quality/Degree: moderate, dry cough Possible Cause: occasional episodes Modifying Factors: Improves With: activity, coughing Associated Symptoms: cough, shortness of breath, wheezing, No fever, No chills, No chest pain/soreness Allergies/Adverse Reactions: clarithromycin [From Biaxin] Allergy (Severe, Verified 05/29/21 19:01) Hives Coconut Allergy (Severe, Verified 05/29/21 19:01) Difficulty Breathing green dye *RETIRED-07/03/12 [Green Dye] Allergy (Mild, Verified 05/29/21 19:01) Swelling swelling ears red dye [Red Dye] Allergy (Mild, Verified 05/29/21 19:01) Swelling ears swell nitrofurantoin [From Macrobid] Allergy (Verified 05/29/21 19:01) levofloxacin [From Levaquin] Adverse Reaction (Mild, Verified 05/29/21 19:01) Joint Aches Home Medications: Zolpidem Tartrate [Ambien] 10 mg PO HSPRN PRN 08/16/15 [History] Amlodipine Besylate 1 tab PO DAILY 07/26/20 [History] Fexofenadine HCl [Sonia] 1 tab PO DAILY 07/26/20 [History] hydroCHLOROthiazide [Hydrochlorothiazide] 1 tab PO DAILY 07/26/20 [History] Diphenoxylate HCl/Atropine [Diphenoxylate-Atrop 2.5-0.025] 1 each PO BID 05/29/21 [History] Rosuvastatin Calcium 5 mg PO WEEKLY 05/29/21 [History] Hx Tetanus, Diphtheria Vaccination/Date Given: Yes Hx Influenza Vaccination/Date Given: Yes Hx Pneumococcal Vaccination/Date Given: Yes Travel Risk - International Travel Have you traveled outside of the country in past 3 weeks: No - Coronavirus Screening Are you exhibiting any of the following symptoms?: Yes Symptoms: Cough: New Onset, Shortness of Breath Close contact with a COVID-19 positive Pt in past 14-21 Days: No - Vaccine Status Have you recieved a Covid-19 vaccination: 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[employer] - Vaccination Dates Date of 2cond Vaccination (if applicable): apr 2020 Comment: booster - Review of Systems Constitutional: No Symptoms Eyes: No Symptoms Ears, Nose, & Throat: No Symptoms Respiratory: Cough, Dyspnea, Wheezing Cardiac: No Symptoms, No Chest Pain Abdominal/Gastrointestinal: No Symptoms Genitourinary Symptoms: No Symptoms Musculoskeletal: No Symptoms Skin: No Symptoms Neurological: No Symptoms Psychological: No Symptoms Endocrine: No Symptoms Hematologic/Lymphatic: No Symptoms Immunological/Allergic: No Symptoms All Other Systems: Reviewed and Negative - Past Medical History Pertinent Past Medical History: Yes Neurological History: No Pertinent History ENT History: No Pertinent History Cardiac History: Arrhythmia, Other Respiratory History: Other Endocrine Medical History: Diabetes Type II, Other Musculoskeletal History: Osteoarthritis GI Medical History: Diverticulitis, Gallbladder Disease, Pancreatitis History: No Pertinent History Psycho-Social History: No Pertinent History Female Reproductive Disorders: No Pertinent History Other Medical History: bruised liver, kidney disease in the past, seasonal allergies, lung ca - Past Surgical History Past Surgical History: Yes Neuro Surgical History: No Pertinent History Cardiac: No Pertinent History Respiratory: No Pertinent History Gastrointestinal: Appendectomy, Cholecystectomy, Hernia Repair Genitourinary: No Pertinent History Musculoskeletal: No Pertinent History, Joint Replacement, Orthopedic Surgery Female Surgical History: Hysterectomy, Other Other Surgical History: tonsilectomy, carpal tunnel, trigger finger X3, BLADDER SLING, colorectal, SI fusion, left wedge resection to lungs July 16, 2020 - Social History Smoking Status: Former smoker How long have you smoked: 20 years Exposure to second hand smoke: No Drug Use: none Patient Lives Alone: Yes - Nursing Vital Signs Nursing Vital Signs: Initial Vital Signs Temperature 98.2 F 05/29/21 19:06 Pulse Rate 71 05/29/21 19:06 Respiratory Rate 14 05/29/21 19:06 Blood Pressure 132/89 05/29/21 19:06 O2 Sat by Pulse Oximetry 98 05/29/21 19:06 Pain Scale Pain Intensity 5 - Physical Exam General Appearance: no apparent distress, alert, anxiety, obese Eye Exam: PERRL/EOMI, eyes nml inspection Ears, Nose, Throat Exam: normal ENT inspection, moist mucous membranes Neck Exam: normal inspection, non-tender, supple, full range of motion Respiratory Exam: airway intact, rhonchi, wheezing, No chest tenderness, No respiratory distress, No stridor Cardiovascular Exam: regular rate/rhythm, normal heart sounds, normal peripheral pulses Gastrointestinal/Abdomen Exam: soft, normal bowel sounds, No tenderness Pelvic Exam: not done Rectal Exam: not done Back Exam: normal inspection, normal range of motion, No CVA tenderness, No vertebral tenderness Extremity Exam: normal inspection, normal range of motion, pelvis stable Neurologic Exam: alert, 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, cooperative, 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 tested, normal mood/affect, nml cerebellar function, nml station & gait, sensation nml Skin Exam: normal color, warm, dry Lymphatic Exam: No adenopathy SpO2 Interpretation: normal SpO2: 98 O2 Delivery: Room Air - Course Nursing assessment & vital signs reviewed: Yes EKG Interpreted by Me: RATE (70), Sinus Rhythm, NORMAL AXIS, NORMAL INTERVALS, NORMAL QRS, NORMAL ST-T, Other (No acute ischemic changes on today's EKG.) Ordered Tests: Active Orders 24 hr Category Date Time Status EKG-ER Only STAT Care 05/29/21 19:24 Active IV Insertion STAT Care 05/29/21 19:24 Active Pulse Oximetry (ED) STAT Care 05/29/21 19:24 Active CHEST 1 VIEW (PORTABLE) Stat Exams 05/29/21 19:25 Taken BLOOD CULTURE Stat Lab 05/29/21 19:59 Received CBC W DIFF Stat Lab 05/29/21 19:42 Completed CMP Stat Lab 05/29/21 19:42 Completed Lactic Acid Stat Lab 05/29/21 19:24 Completed NT PRO BNP Stat Lab 05/29/21 19:42 Completed TROPONIN Q3H Lab 05/29/21 19:42 Completed TROPONIN Q3H Lab 05/29/21 22:30 Ordered TROPONIN Q3H Lab 05/30/21 01:30 Ordered TROPONIN Q3H Lab 05/30/21 04:30 Ordered TROPONIN Q3H Lab 05/30/21 07:30 Ordered Respiratory Therapy Assessment DAILY RT 05/29/21 20:03 Completed Medication Summary Discontinued Medications Generic Name Dose Route Start Last Admin Trade Name Meche PRN Reason Stop Dose Admin Albuterol Sulfate 2.5 mg 05/29/21 19:24 05/29/21 20:00 Albuterol Sulfate 2.5 Mg/3 Ml Neb IH 05/29/21 19:25 2.5 mg STAT ONE Administration Albuterol Sulfate Confirm 05/29/21 19:51 Albuterol Sulfate 2.5 Mg/3 Ml Neb Administered 05/29/21 19:52 Dose 2.5 mg IH .STK-MED ONE Albuterol Sulfate Confirm 05/29/21 20:10 Albuterol Sulfate 2.5 Mg/3 Ml Neb Administered 05/29/21 20:11 Dose 10 mg IH .STK-MED ONE Chlorphenir/Hydrocodone Polistirex 5 ml 05/29/21 20:46 05/29/21 20:58 Hydrocodone/Chlorphen P-Stirex 1 Ml Linh.Er.12h PO 05/29/21 20:47 5 ml STAT ONE Administration Methylprednisolone Sodium 0 mg 05/29/21 19:24 05/29/21 19:29 Succinate 125 mg/ Sterile IV 05/29/21 19:25 125 mg Water 2 ml STAT ONE Administration Ceftriaxone Sodium/Dextrose 1 g in 50 mls @ 100 mls/hr 05/29/21 19:24 05/29/21 20:25 Rocephin 1 Gm-D5w 50 Ml Bag IV 05/29/21 19:53 Infused STAT STA Infusion Ceftriaxone Sodium/Dextrose Confirm 05/29/21 19:28 Rocephin 1 Gm-D5w 50 Ml Bag Administered 05/29/21 19:29 Dose 1 g in 50 mls @ ud IV .STK-MED ONE Methylprednisolone Sodium Succinate Confirm 05/29/21 19:28 Methylprednis Sod Succ 125 Mg/2 Ml Vial Administered 05/29/21 19:29 Dose 125 mg .ROUTE .STK-Voter[employer] ONE Sterile Water Confirm 05/29/21 19:28 Water For Injection,Sterile 10 Ml Vial Administered 05/29/21 19:29 Dose 10 ml IJ .STK-MED ONE Lab/Rad Data: Laboratory Result Diagrams 05/29/21 19:42 05/29/21 19:42 Laboratory Results 05/29/21 05/29/21 05/29/21 Range/Units 19:42 19:42 19:42 WBC 7.5 (4.0-10.5) K/mm3 RBC 4.54 (4.1-5.4) M/mm3 Hgb 13.6 (12.0-16.0) gm/dl Hct 41.0 (35-47) % MCV 90.3 (78-100) fl MCH 30.0 (26-32) pg MCHC 33.2 (32-36) g/dl RDW 14.1 H (11.5-14.0) % Plt Count 180 (150-450) K/mm3 MPV 11.5 H (7.5-11.0) fl Gran % 59.1 (36.0-66.0) % Eos # (Auto) 0.23 (0-0.5) Absolute Lymphs (auto) 1.96 (1.0-4.6) Absolute Monos (auto) 0.84 (0.0-1.3) Lymphocytes % 26.2 (24.0-44.0) % Monocytes % 11.2 (0.0-12.0) % Eosinophils % 3.1 (0.00-5.0) % Basophils % 0.4 (0.0-0.4) % Absolute Granulocytes 4.42 (1.4-6.9) Basophils # 0.03 (0-0.4) Sodium 137 (137-145) mmol/L Potassium 3.8 (3.5-5.1) mmol/L Chloride 103 (98-107) mmol/L Carbon Dioxide 26 (22-30) mmol/L Anion Gap 12.4 (5-15) MEQ/L BUN 11 (7-17) mg/dL Creatinine 0.64 (0.52-1.04) mg/dL Estimated GFR > 60.0 ML/MIN Glucose 113 H (74-106) mg/dL Lactic Acid (0.4-2.0) Calcium 9.1 (8.4-10.2) mg/dL Total Bilirubin 0.70 (0.2-1.3) mg/dL AST 28 (14-36) U/L ALT 23 (0-35) U/L Alkaline Phosphatase 108 (38-126) U/L Troponin I < 0.012 (0.000-0.034) ng/mL NT-Pro-B Natriuret Pep 299 (0-900) pg/mL Serum Total Protein 6.7 (6.3-8.2) g/dL Albumin 4.1 (3.5-5.0) g/dL 05/29/21 Range/Units 19:24 WBC (4.0-10.5) K/mm3 RBC (4.1-5.4) M/mm3 Hgb (12.0-16.0) gm/dl Hct (35-47) % MCV (78-100) fl MCH (26-32) pg MCHC (32-36) g/dl RDW (11.5-14.0) % Plt Count (150-450) K/mm3 MPV (7.5-11.0) fl Gran % (36.0-66.0) % Eos # (Auto) (0-0.5) Absolute Lymphs (auto) (1.0-4.6) Absolute Monos (auto) (0.0-1.3) Lymphocytes % (24.0-44.0) % Monocytes % (0.0-12.0) % Eosinophils % (0.00-5.0) % Basophils % (0.0-0.4) % Absolute Granulocytes (1.4-6.9) Basophils # (0-0.4) Sodium (137-145) mmol/L Potassium (3.5-5.1) mmol/L Chloride (98-107) mmol/L Carbon Dioxide (22-30) mmol/L Anion Gap (5-15) MEQ/L BUN (7-17) mg/dL Creatinine (0.52-1.04) mg/dL Estimated GFR ML/MIN Glucose (74-106) mg/dL Lactic Acid 1.1 (0.4-2.0) Calcium (8.4-10.2) mg/dL Total Bilirubin (0.2-1.3) mg/dL AST (14-36) U/L ALT (0-35) U/L Alkaline Phosphatase (38-126) U/L Troponin I (0.000-0.034) ng/mL NT-Pro-B Natriuret Pep (0-900) pg/mL Serum Total Protein (6.3-8.2) g/dL Albumin (3.5-5.0) g/dL - Progress Progress: improved, re-examined Air Movement: good Progress Note: 05/29/21 20:11 Patient is out of her home albuterol nebulizer solution. Respiratory therapy is providing her with 4 vials of solution. I will order a prescription for albuterol nebulizer solution as an outpatient. 05/29/21 21:08 Chest x-ray shows perihilar changes, early infiltrate, adenopathy versus scarring. Medical decision making: This patient may have an early infiltrate. At the very least she has bronchitis. We will treat her with outpatient cefdinir, Tussionex and steroids. Patient does not have chest pain. Her twelve-lead EKG is normal. She has a normal BNP and a normal troponin. Patient will follow up with her primary care doctor tomorrow to make arrangements for follow-up appointment. 05/29/21 21:21 We checked the hydrocodone/acetaminophen elixir. There is no red dye in that solution. Blood Culture(s) Obtained: Yes Antibiotics given: No Counseled pt/family regarding: lab results, diagnosis, need for follow-up, rad results - Departure Departure Disposition: Home Clinical Impression: Infiltrate noted on imaging study Condition: Stable Critical Care Time: No Referrals: WENDY WILLS NP [Primary Care Provider] - Follow up/PCP as directed Additional Instructions: Drink plenty fluid. Take your medications as prescribed. Follow-up with your prescribing provider for further management. Prescriptions: Hydrocodone/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 [Hydrocodone-Acetamn 7.5-325/15] 10 ml PO Q8H PRN PRN #120 MDD 30 ml PRN Reason: Cough Cefdinir 300 mg PO BID #14 cap Prednisone 10 mg [Deltasone 10 mg] 10 mg PO TID #12 tablet Albuterol 2.5 mg/3 ml Neb [Proventil 2.5 mg/3 ml Neb] 2.5 mg IH Q6H #25
[2021-05-29] MEDS ORDERED: ROCEPHIN 1 Gm-D5w 50 ml Bag** 1 G/50 ML IVPB IV ONE (19:28)
[2021-05-29] MEDS ORDERED: Sterile H2O 10 ml IJ ONE (19:28)
[2021-05-29] MEDS ORDERED: solu-MEDROL ONE (19:28)
[2021-05-29 19:51] LABS: Absolute Neutrophil Ct (ANC) 4.42 (1.4-6.9); Basophil (Absolute #) 0.03 (0-0.4); Eosinophil % 3.1 % (0.00-5.0); Eosinophil (Absolute #) 0.23 (0-0.5); Hemoglobin 13.6 gm/dl (12.0-16.0); Lymphocyte (Absolute #) 1.96 (1.0-4.6); Lymphocytes % 26.2 % (24.0-44.0); Mean Cell Volume 90.3 fl (78-100); Mean Corpuscular Hgb Concent. 33.2 g/dl (32-36); Mean Platelet Volume 11.5 fl (7.5-11.0); Monocyte (Absolute #) 0.84 (0.0-1.3); Monocytes % 11.2 % (0.0-12.0); Neutrophil % 59.1 % (36.0-66.0); Platelet Count 180 K/mm3 (150-450); Red Blood Count 4.54 M/mm3 (4.1-5.4); Red Cell Distribution Width 14.1 % (11.5-14.0); White Blood Count 7.5 K/mm3 (4.0-10.5)
[2021-05-29 20:08] LABS: ALBUMIN 4.1 g/dL (3.5-5.0); ALKALINE PHOSPHATASE 108 U/L (38-126); ANION GAP 12.4 MEQ/L (5-15); BLOOD UREA NITROGEN 11 mg/dL (7-17); CHLORIDE 103 mmol/L (98-107); Calcium 9.1 mg/dL (8.4-10.2); Carbon Dioxide 26 mmol/L (22-30); Creatinine 1 0.64 mg/dL (0.52-1.04); EST GLOMERULAR FILTRATION RATE > 60.0 ML/MIN; Glucose 113 mg/dL (74-106); NT PRO BNP 299 pg/mL (0-900); Potassium 3.8 mmol/L (3.5-5.1); SGOT/AST 28 U/L (14-36); SGPT/ALT 23 U/L (0-35); SODIUM 137 mmol/L (137-145); Total Protein 6.7 g/dL (6.3-8.2)
[2021-05-29] MEDS ORDERED: HYDROCODONE-CHLORPHEN ER SUSP PO ONE (20:46)
[2021-05-29 21:03] VITALS: BP 111/67; PULSE 75
[2021-05-29 21:13] VITALS: O2SAT 98
--- NOTE | 2021-05-30 08:52 | XRAY ---
Indication: Cough. History lung cancer. Comparison: November 09, 2019. Portable apical lordotic chest demonstrates new left midlung and stable right suprahilar suture material. Remaining heart and lungs unremarkable again with incidental hilar calcified nodes. Bony thorax intact again with osteopenia and degenerative changes. Impression: Continued nonacute chest with chronic features.
== END 2021-05-29 21:40 | disposition home or self-care (01) ==
LOC: ED 18:52
DX: R91.8 Other nonspecific abnormal finding of lung field (principal); R05.1 Acute cough; R06.02 Shortness of breath; Z85.118 Personal history of other malignant neoplasm of bronchus and lung; E11.9 Type 2 diabetes mellitus without complications; I10 Essential (primary) hypertension; Z79.891 Long term (current) use of opiate analgesic; Z79.52 Long term (current) use of systemic steroids; Z79.899 Other long term (current) drug therapy
CPT/HCPCS: 36000; 36415; 71045; 80053; 83605; 83880; 84484; 85025; 87040; 93005; 94640; 94760; 96365; 96374; 99284; J0696; J2930; J7609; A9270-GY

== ENCOUNTER 2021-07-15 09:23 | Emergency (ER) | payer MEDICARE, OTHER ==
--- NOTE | 2021-07-15 09:32 | ERPHSYRPT ---
- History of Present Illness Time Seen by Provider: 07/15/21 09:32 Source: patient Exam Limitations: no limitations Physician History: This is a 70-year-old white female patient of nurse practitioner Jamaal who has a history of recurrent bronchitis and recurrent pneumonias. She has been treated for recurrent bronchitis recently. 1 week ago she had an intramuscular inj ection of Kenalog steroid. In addition she has been on a prescription of doxycycline. Patient has a history of hypertension, diabetes, seasonal allergies. She also has a history of lung cancer. She is a former smoker. She is status post lung lobectomy and lung wedge resection. Patient was here on 05/29/2021 for the same symptoms of cough and mild shortness of breath. Patient denies chest pain. She has not had a fever. Cough Quality/Degree: moderate, dry cough Possible Cause: frequent episodes Modifying Factors: Improves With: activity, coughing Associated Symptoms: cough, shortness of breath, wheezing, No fever, No chills, No chest pain/soreness Allergies/Adverse Reactions: clarithromycin [From Biaxin] Allergy (Severe, Verified 07/15/21 09:26) Hives Coconut Allergy (Severe, Verified 07/15/21 09:26) Difficulty Breathing green dye *RETIRED-07/03/12 [Green Dye] Allergy (Mild, Verified 07/15/21 09:26) Swelling swelling ears red dye [Red Dye] Allergy (Mild, Verified 07/15/21 09:26) Swelling ears swell nitrofurantoin [From Macrobid] Allergy (Verified 07/15/21 09:26) levofloxacin [From Levaquin] Adverse Reaction (Mild, Verified 07/15/21 09:26) Joint Aches Home Medications: Zolpidem Tartrate [Ambien] 10 mg PO HSPRN PRN 08/16/15 [History] Amlodipine Besylate 1 tab PO DAILY 07/26/20 [History] Fexofenadine HCl [Sonia] 1 tab PO DAILY 07/26/20 [History] hydroCHLOROthiazide [Hydrochlorothiazide] 1 tab PO DAILY 07/26/20 [History] Diphenoxylate HCl/Atropine [Diphenoxylate-Atrop 2.5-0.025] 1 each PO BID 05/29/21 [History] Rosuvastatin Calcium 5 mg PO WEEKLY 05/29/21 [History] Hx Tetanus, Diphtheria Vaccination/Date Given: Yes Hx Influenza Vaccination/Date Given: Yes Hx Pneumococcal Vaccination/Date Given: Yes Travel Risk - International Travel Have you traveled outside of the country in past 3 weeks: No - Coronavirus Screening Are you exhibiting any of the following symptoms?: Yes Symptoms: Cough: New Onset, Shortness of Breath Close contact with a COVID-19 positive Pt in past 14-21 Days: No - Vaccine Status Have you recieved a Covid-19 vaccination: Yes Egg Separator: Moderna - Vaccination Dates Date of 2cond Vaccination (if applicable): apr 2020 Comment: booster - Review of Systems Constitutional: No Symptoms Eyes: No Symptoms Ears, Nose, & Throat: No Symptoms Respiratory: Cough, Dyspnea, Wheezing Cardiac: No Symptoms Abdominal/Gastrointestinal: No Symptoms Genitourinary Symptoms: No Symptoms Musculoskeletal: No Symptoms Skin: No Symptoms Neurological: No Symptoms Psychological: No Symptoms Endocrine: No Symptoms Hematologic/Lymphatic: No Symptoms Immunological/Allergic: No Symptoms All Other Systems: Reviewed and Negative - Past Medical History Pertinent Past Medical History: Yes Neurological History: No Pertinent History ENT History: No Pertinent History Cardiac History: Arrhythmia, Other Respiratory History: Other Endocrine Medical History: Diabetes Type II, Other Musculoskeletal History: Osteoarthritis GI Medical History: Diverticulitis, Gallbladder Disease, Pancreatitis History: No Pertinent History Psycho-Social History: No Pertinent History Female Reproductive Disorders: No Pertinent History Other Medical History: bruised liver, kidney disease in the past, seasonal allergies, lung ca - Past Surgical History Past Surgical History: Yes Neuro Surgical History: No Pertinent History Cardiac: No Pertinent History Respiratory: No Pertinent History Gastrointestinal: Appendectomy, Cholecystectomy, Hernia Repair Genitourinary: No Pertinent History Musculoskeletal: No Pertinent History, Joint Replacement, Orthopedic Surgery Female Surgical History: Hysterectomy, Other Other Surgical History: tonsilectomy, carpal tunnel, trigger finger X3, BLADDER SLING, colorectal, SI fusion, left wedge resection to lungs July 16, 2020 - Social History Smoking Status: Former smoker How long have you smoked: 20 years Exposure to second hand smoke: No Drug Use: none Patient Lives Alone: Yes - Nursing Vital Signs Nursing Vital Signs: Initial Vital Signs Temperature 97.6 F 07/15/21 09:27 Pulse Rate 67 07/15/21 09:27 Respiratory Rate 18 07/15/21 09:27 Blood Pressure 91/78 07/15/21 09:27 O2 Sat by Pulse Oximetry 95 07/15/21 09:27 Pain Scale Pain Intensity 0 - Physical Exam General Appearance: no apparent distress, alert, anxiety Eye Exam: PERRL/EOMI, eyes nml inspection Ears, Nose, Throat Exam: normal ENT inspection, moist mucous membranes Neck Exam: normal inspection, non-tender, supple, full range of motion Respiratory Exam: airway intact, wheezing (Bilateral diffuse inspiratory and expiratory wheezing), No chest tenderness, No respiratory distress, No stridor Cardiovascular Exam: regular rate/rhythm, normal heart sounds, normal peripheral pulses Gastrointestinal/Abdomen Exam: soft, normal bowel sounds, No tenderness Pelvic Exam: not done Rectal Exam: not done Back Exam: normal inspection, normal range of motion, No CVA tenderness, No vertebral tenderness Extremity Exam: normal inspection, normal range of motion, pelvis stable Neurologic Exam: alert, 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, cooperative, 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 There is short HI interval. I disagree. There is no acute ST elevation) Ordered Tests: Active Orders 24 hr Category Date Time Status Floor And Wall Applier Liquid STAT Care 07/15/21 10:25 Active EKG-ER Only STAT Care 07/15/21 10:24 Active EKG-ER Only STAT Care 07/15/21 12:45 Active IV Insertion STAT Care 07/15/21 10:24 Active Pulse Oximetry (ED) STAT Care 07/15/21 10:24 Active CHEST 1 VIEW (PORTABLE) Stat Exams 07/15/21 10:25 Completed BLOOD CULTURE Stat Lab 07/15/21 11:05 Received CBC W DIFF Stat Lab 07/15/21 10:50 Completed CMP Stat Lab 07/15/21 10:50 Completed Lactic Acid Stat Lab 07/15/21 10:24 Completed NT PRO BNP Stat Lab 07/15/21 10:50 Completed TROPONIN Q3H Lab 07/15/21 10:50 Completed TROPONIN Q3H Lab 07/15/21 13:20 Completed TROPONIN Q3H Lab 07/15/21 16:30 Ordered TROPONIN Q3H Lab 07/15/21 19:30 Ordered TROPONIN Q3H Lab 07/15/21 22:30 Ordered Respiratory Therapy Assessment DAILY RT 07/15/21 09:45 Active Medication Summary Discontinued Medications Generic Name Dose Route Start Last Admin Trade Name Kirillq PRN Reason Stop Dose Admin Hydrocodone Bitart/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 10 ml 07/15/21 10:26 07/15/21 11:16 Hydrocodone/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 5 Ml Udcup PO 07/15/21 10:27 10 ml STAT STA Administration Hydrocodone Bitart/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 Confirm 07/15/21 11:10 Hydrocodone/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 5 Ml Udcup Administered 07/15/21 11:11 Dose 10 ml .ROUTE .STK-MED ONE Albuterol/Ipratropium Confirm 07/15/21 09:37 Ipratropium/Albuterol Sulfate 3 Ml Ampul.Neb Administered 07/15/21 09:38 Dose 3 ml IH .STK-MED ONE Albuterol/Ipratropium 3 ml 07/15/21 09:38 07/15/21 09:40 Ipratropium/Albuterol Sulfate 3 Ml Ampul.Neb IH 07/15/21 09:39 3 ml STAT ONE Administration Methylprednisolone Sodium 0 mg 07/15/21 10:24 07/15/21 11:18 Succinate 80 mg/ Sterile Water IV 07/15/21 10:25 80 mg 2 ml STAT ONE Administration Ceftriaxone Sodium/Dextrose 1 g in 50 mls @ 100 mls/hr 07/15/21 12:16 07/15/21 13:58 Rocephin 1 Gm-D5w 50 Ml Bag IV 07/15/21 12:45 Infused STAT STA Infusion Sodium Chloride 500 mls @ 500 mls/hr 07/15/21 12:16 07/15/21 13:58 Sodium Chloride 0.9% 500 Ml IV 07/15/21 13:15 Infused .Q1H ONE Infusion Ceftriaxone Sodium/Dextrose Confirm 07/15/21 12:21 Rocephin 1 Gm-D5w 50 Ml Bag Administered 07/15/21 12:22 Dose 1 g in 50 mls @ ud IV .STK-MED ONE Sodium Chloride Confirm 07/15/21 12:21 Sodium Chloride 0.9% 500 Ml Administered 07/15/21 12:22 Dose 500 mls @ ud IV .STK-MED ONE Methylprednisolone Sodium Succinate Confirm 07/15/21 11:11 Methylprednis Sod Succ 125 Mg/2 Ml Vial Administered 07/15/21 11:12 Dose 125 mg .ROUTE .STK-MED ONE Ondansetron HCl 4 mg 07/15/21 10:47 07/15/21 11:13 Ondansetron Hcl 4 Mg/2 Ml Vial IV 07/15/21 10:48 4 mg STAT ONE Administration Ondansetron HCl Confirm 07/15/21 11:10 Ondansetron Hcl 4 Mg/2 Ml Vial Administered 07/15/21 11:11 Dose 4 mg .ROUTE .STK-MED ONE Potassium Chloride 10 meq 07/15/21 11:58 07/15/21 12:03 Potassium Chloride 10 Meq Tablet PO 07/15/21 11:59 10 meq STAT ONE Administration Potassium Chloride Confirm 07/15/21 12:02 Potassium Chloride 10 Meq Tablet Administered 07/15/21 12:03 Dose 10 meq PO .STK-MED ONE Sterile Water Confirm 07/15/21 11:10 Water For Injection,Sterile 10 Ml Vial Administered 07/15/21 11:11 Dose 10 ml IJ .STK-MED ONE Lab/Rad Data: Laboratory Result Diagrams 07/15/21 10:50 07/15/21 10:50 Laboratory Results 07/15/21 07/15/21 07/15/21 Range/Units 13:20 10:50 10:50 WBC (4.0-10.5) K/mm3 RBC (4.1-5.4) M/mm3 Hgb (12.0-16.0) gm/dl Hct (35-47) % MCV (78-100) fl MCH (26-32) pg MCHC (32-36) g/dl RDW (11.5-14.0) % Plt Count (150-450) K/mm3 MPV (7.5-11.0) fl Gran % (36.0-66.0) % Eos # (Auto) (0-0.5) Absolute Lymphs (auto) (1.0-4.6) Absolute Monos (auto) (0.0-1.3) Lymphocytes % (24.0-44.0) % Monocytes % (0.0-12.0) % Eosinophils % (0.00-5.0) % Basophils % (0.0-0.4) % Absolute Granulocytes (1.4-6.9) Basophils # (0-0.4) Sodium 139 (137-145) mmol/L Potassium 3.2 L (3.5-5.1) mmol/L Chloride 99 (98-107) mmol/L Carbon Dioxide 28 (22-30) mmol/L Anion Gap 14.4 (5-15) MEQ/L BUN 18 H (7-17) mg/dL Creatinine 0.64 (0.52-1.04) mg/dL Estimated GFR > 60.0 ML/MIN Glucose 151 H (74-106) mg/dL Lactic Acid (0.4-2.0) Calcium 8.6 (8.4-10.2) mg/dL Total Bilirubin 0.90 (0.2-1.3) mg/dL AST 26 (14-36) U/L ALT 24 (0-35) U/L Alkaline Phosphatase 74 (38-126) U/L Troponin I < 0.012 < 0.012 (0.000-0.034) ng/mL NT-Pro-B Natriuret Pep 309 (0-900) pg/mL Serum Total Protein 6.6 (6.3-8.2) g/dL Albumin 3.9 (3.5-5.0) g/dL Slides for Path Review 07/15/21 07/15/21 Range/Units 10:50 10:24 WBC 4.7 (4.0-10.5) K/mm3 RBC 4.59 (4.1-5.4) M/mm3 Hgb 13.7 (12.0-16.0) gm/dl Hct 42.4 (35-47) % MCV 92.4 (78-100) fl MCH 29.8 (26-32) pg MCHC 32.3 (32-36) g/dl RDW 14.5 H (11.5-14.0) % Plt Count 125 L (150-450) K/mm3 MPV 11.7 H (7.5-11.0) fl Gran % 62.5 (36.0-66.0) % Eos # (Auto) 0.03 (0-0.5) Absolute Lymphs (auto) 1.10 (1.0-4.6) Absolute Monos (auto) 0.61 (0.0-1.3) Lymphocytes % 23.6 L (24.0-44.0) % Monocytes % 13.1 H (0.0-12.0) % Eosinophils % 0.6 (0.00-5.0) % Basophils % 0.2 (0.0-0.4) % Absolute Granulocytes 2.92 (1.4-6.9) Basophils # 0.01 (0-0.4) Sodium (137-145) mmol/L Potassium (3.5-5.1) mmol/L Chloride (98-107) mmol/L Carbon Dioxide (22-30) mmol/L Anion Gap (5-15) MEQ/L BUN (7-17) mg/dL Creatinine (0.52-1.04) mg/dL Estimated GFR ML/MIN Glucose (74-106) mg/dL Lactic Acid 1.0 (0.4-2.0) Calcium (8.4-10.2) mg/dL Total Bilirubin (0.2-1.3) mg/dL AST (14-36) U/L ALT (0-35) U/L Alkaline Phosphatase (38-126) U/L Troponin I (0.000-0.034) ng/mL NT-Pro-B Natriuret Pep (0-900) pg/mL Serum Total Protein (6.3-8.2) g/dL Albumin (3.5-5.0) g/dL Slides for Path Review YES - Progress Progress: improved, re-examined Air Movement: good Progress Note: 07/15/21 10:57 Chest x-ray shows no acute cardiopulmonary processes. There is no acute findings. 07/15/21 15:29 Patient states that she is feeling much better now. The plan for her is to be discharged to home diagnosis will be chronic recurrent bronchitis. We will treat her with cefdinir. We will have her discontinue the doxycycline. She will also start taking her cough medicine. She will also use nebulizer treatments every 4 hours while awake. - Departure Departure Disposition: Home Clinical Impression: Chronic bronchitis with acute exacerbation Condition: Stable Critical Care Time: No Referrals: WENDY WILLS NP [Primary Care Provider] - Follow up/PCP as directed Additional Instructions: Drink plenty of fluids. Stop your doxycycline. Take your new antibiotics as prescribed. Use your previously prescribed antitussive medication. Use your nebulizer treatments every 4 hours while awake. Follow-up with your primary care physician for further evaluation and management. Prescriptions: Cefdinir 300 mg PO BID #14 cap Albuterol 2.5 mg/3 ml Neb [Proventil 2.5 mg/3 ml Neb] 2.5 mg IH Q6H #25
[2021-07-15 09:35] VITALS: BP 91/78
[2021-07-15] MEDS ORDERED: DUONEB 0.5-3 MG/3 ml Neb IH ONE ×2 (09:37→09:38)
[2021-07-15] MEDS ORDERED: solu-MEDROL 80 MG, Sterile H2O 10 ml 2 ML IV ONE ×2 (10:24)
[2021-07-15] MEDS ORDERED: HYDROCODONE-ACETAMIN 2.5-108/5 ML SOLUTION PO STA (10:26)
[2021-07-15] MEDS ORDERED: Zofran 4 MG/2 ML VIAL IV ONE (10:47)
--- NOTE | 2021-07-15 10:56 | XRAY ---
Indication: Chronic cough. Comparison: May 29, 2021. Portable chest unchanged and remains clear again with incidental right suprahilar and left mid lung suture material. Heart not enlarged again with hilar calcified nodes. No new/acute finding.
[2021-07-15] MEDS ORDERED: HYDROCODONE-ACETAMIN 2.5-108/5 ML SOLUTION ONE (11:10)
[2021-07-15] MEDS ORDERED: Zofran 4 MG/2 ML VIAL ONE (11:10)
[2021-07-15] MEDS ORDERED: Sterile H2O 10 ml IJ ONE (11:10)
[2021-07-15] MEDS ORDERED: solu-MEDROL ONE (11:11)
[2021-07-15 11:22] LABS: Absolute Neutrophil Ct (ANC) 2.92 (1.4-6.9); Basophil (Absolute #) 0.01 (0-0.4); Eosinophil % 0.6 % (0.00-5.0); Eosinophil (Absolute #) 0.03 (0-0.5); Hematocrit 42.4 % (35-47); Hemoglobin 13.7 gm/dl (12.0-16.0); Lymphocytes % 23.6 % (24.0-44.0); Mean Cell Volume 92.4 fl (78-100); Mean Corpuscular Hemoglobin 29.8 pg (26-32); Mean Corpuscular Hgb Concent. 32.3 g/dl (32-36); Mean Platelet Volume 11.7 fl (7.5-11.0); Monocyte (Absolute #) 0.61 (0.0-1.3); Monocytes % 13.1 % (0.0-12.0); Neutrophil % 62.5 % (36.0-66.0); Red Blood Count 4.59 M/mm3 (4.1-5.4); Red Cell Distribution Width 14.5 % (11.5-14.0); White Blood Count 4.7 K/mm3 (4.0-10.5)
[2021-07-15 11:46] LABS: ALBUMIN 3.9 g/dL (3.5-5.0); ALKALINE PHOSPHATASE 74 U/L (38-126); ANION GAP 14.4 MEQ/L (5-15); BLOOD UREA NITROGEN 18 mg/dL (7-17); CHLORIDE 99 mmol/L (98-107); Calcium 8.6 mg/dL (8.4-10.2); Carbon Dioxide 28 mmol/L (22-30); Creatinine 1 0.64 mg/dL (0.52-1.04); EST GLOMERULAR FILTRATION RATE > 60.0 ML/MIN; Glucose 151 mg/dL (74-106); NT PRO BNP 309 pg/mL (0-900); Platelet Count 125 K/mm3 (150-450); Potassium 3.2 mmol/L (3.5-5.1); SGOT/AST 26 U/L (14-36); SGPT/ALT 24 U/L (0-35); SODIUM 139 mmol/L (137-145); Slide Review 1 YES; Total Protein 6.6 g/dL (6.3-8.2)
[2021-07-15] MEDS ORDERED: Klor Con 10 MEQ PO ONE ×2 (11:58→12:02)
[2021-07-15] MEDS ORDERED: ROCEPHIN 1 Gm-D5w 50 ml Bag** 1 G/50 ML IVPB IV STA (12:16)
[2021-07-15] MEDS ORDERED: Sodium Chloride 0.9% 500 ML 500 ML IV ONE ×2 (12:16→12:21)
[2021-07-15] MEDS ORDERED: ROCEPHIN 1 Gm-D5w 50 ml Bag** 1 G/50 ML IVPB IV ONE (12:21)
[2021-07-15 14:42] VITALS: PULSE 83; O2SAT 93
== END 2021-07-15 15:46 | disposition home or self-care (01) ==
LOC: ED 09:23
DX: J42 Unspecified chronic bronchitis (principal); R05.9 Cough, unspecified; R06.02 Shortness of breath; I10 Essential (primary) hypertension; E11.9 Type 2 diabetes mellitus without complications; Z85.118 Personal history of other malignant neoplasm of bronchus and lung; Z79.899 Other long term (current) drug therapy
CPT/HCPCS: 36000; 36415; 71045; 80053; 83605; 83880; 84484; 85025; 87040; 93005; 93041; 94640; 94760; 96374; 96375; 99284; J0696; J2405; J2930; A9270-GY

== ENCOUNTER 2021-08-11 11:21 | Emergency (ER) | payer MEDICARE, OTHER ==
[2021-08-11] MEDS ORDERED: DUONEB 0.5-3 MG/3 ml Neb IH ONE ×2 (12:09→12:14)
[2021-08-11 12:55] LABS: Absolute Neutrophil Ct (ANC) 4.15 x10^3/uL (1.4-6.9); Basophil (Absolute #) 0.03 x10^3/uL (0-0.4); Eosinophil % 5.1 % (0.00-5.0); Eosinophil (Absolute #) 0.35 x10^3/uL (0-0.5); Hemoglobin 12.3 g/dL (12.0-16.0); Lymphocytes % 24.9 % (24.0-44.0); Mean Cell Volume 90.9 fL (78-100); Mean Corpuscular Hemoglobin 30.2 pg (26-32); Mean Corpuscular Hgb Concent. 33.2 g/dL (32-36); Mean Platelet Volume 11.5 fL (7.5-11.0); Monocyte (Absolute #) 0.56 x10^3/uL (0.0-1.3); Monocytes % 8.2 % (0.0-12.0); Platelet Count 186 x10^3/uL (150-450); Red Blood Count 4.07 x10^6/uL (4.1-5.4); Red Cell Distribution Width 13.8 % (11.5-14.0); White Blood Count 6.8 x10^3/uL (4.0-10.5)
--- NOTE | 2021-08-11 12:59 | XRAY ---
Indication: Worsening cough. Negative Covid 19. Bilateral lung resection. Comparison: July 15, 2021. Portable chest remains clear again with incidental bilateral lung suture material. Heart not enlarged again with hilar calcified nodes. No new/acute findings.
[2021-08-11 13:03] LABS: Appearance CLEAR (CLEAR); Bilirubin NEGATIVE (NEGATIVE); Dipstick done @ ? MAIN LAB; Glucose NEGATIVE (NEGATIVE); Ketones NEGATIVE (NEGATIVE); Nitrite NEGATIVE (NEGATIVE); Protein,Urine Dip NEGATIVE (Negative); RBC NEGATIVE Ery/ul (0-5); Specific Gravity 1.015 (1.005-1.025); Urobilinogen 0.2 mg/dL (0-1)
--- NOTE | 2021-08-11 13:09 | ERPHSYRPT ---
- History of Present Illness Time Seen by Provider: 08/11/21 11:28 Source: patient Exam Limitations: no limitations Patient Subjective Stated Complaint: pt states "I was getting an infusion and the nurse said I was getting worse." Triage Nursing Assessment: pt ambulated into the er; pt is axo x4; c/o cough; pt denies pain; pt has deep, dry, hacking cough present; pt has hx lung cancer; clear lung sounds in all lobes; hypertension; pt states that she took a duo neb at 1100 Physician History: 71-year-old female with history of adenocarcinoma lung status post wedge resection having off-and-on cough for the last couple of months, finished outpatient course of steroid and antibiotics with no significant relief and was started on IV antibiotics and have received 7 doses of Rocephin for patient and did feel some improvement until yesterday and now having worsening of cough clear to yellow sputum. 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 No fever or chills reported. Denies any chest pain or shortness of breath. Timing/Duration: week(s), gradual onset, worse Cough Quality/Degree: dry cough, productive cough, sputum Possible Cause: frequent episodes Modifying Factors: Improves With: nothing Associated Symptoms: cough Allergies/Adverse Reactions: clarithromycin [From Biaxin] Allergy (Severe, Verified 08/11/21 11:28) Hives Coconut Allergy (Severe, Verified 08/11/21 11:28) Difficulty Breathing green dye *RETIRED-07/03/12 [Green Dye] Allergy (Mild, Verified 08/11/21 11:28) Swelling swelling ears red dye [Red Dye] Allergy (Mild, Verified 08/11/21 11:28) Swelling ears swell adhesive Allergy (Verified 08/11/21 11:28) Rash cholestyramine Allergy (Verified 08/11/21 11:28) iodine Allergy (Verified 08/11/21 11:28) Wheezing latex Allergy (Verified 08/11/21 11:28) Rash nitrofurantoin [From Macrobid] Allergy (Verified 08/11/21 11:28) levofloxacin [From Levaquin] Adverse Reaction (Mild, Verified 08/11/21 11:28) Joint Aches Home Medications: Zolpidem Tartrate [Ambien] 10 mg PO HSPRN PRN 08/16/15 [History] Amlodipine Besylate 1 tab PO DAILY 07/26/20 [History] Fexofenadine HCl [Sonia] 1 tab PO DAILY 07/26/20 [History] hydroCHLOROthiazide [Hydrochlorothiazide] 1 tab PO DAILY 07/26/20 [History] Rosuvastatin Calcium 5 mg PO WEEKLY 05/29/21 [History] Diphenoxylate HCl/Atropine [Lomotil Tablet] 1 each PO QID 08/05/21 [History] Lansoprazole 30 mg PO DAILY 08/05/21 [History] Fluticasone/Umeclidin/Vilanter [Trelegy Ellipta 200-62.5-25] 1 each IH DAILY 08/10/21 [History] Hx Tetanus, Diphtheria Vaccination/Date Given: Yes Hx Influenza Vaccination/Date Given: Yes Hx Pneumococcal Vaccination/Date Given: Yes Immunizations Up to Date: Yes Travel Risk - International Travel Have you traveled outside of the country in past 3 weeks: No - Coronavirus Screening Are you exhibiting any of the following symptoms?: No Close contact with a COVID-19 positive Pt in past 14-21 Days: No - Vaccine Status Have you recieved a Covid-19 vaccination: Yes 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 - Vaccination Dates Date of 2cond Vaccination (if applicable): apr 2020 Comment: booster - Review of Systems Constitutional: No Symptoms Eyes: No Symptoms Ears, Nose, & Throat: No Symptoms Respiratory: Cough Cardiac: No Symptoms Abdominal/Gastrointestinal: No Symptoms Genitourinary Symptoms: No Symptoms Musculoskeletal: No Symptoms Skin: No Symptoms Neurological: No Symptoms Psychological: No Symptoms Endocrine: No Symptoms Hematologic/Lymphatic: No Symptoms Immunological/Allergic: No Symptoms - Past Medical History Pertinent Past Medical History: Yes Neurological History: No Pertinent History ENT History: No Pertinent History Cardiac History: Arrhythmia, Other Respiratory History: COPD, Other Endocrine Medical History: Diabetes Type II, Other Musculoskeletal History: Osteoarthritis GI Medical History: Diverticulitis, Gallbladder Disease, Pancreatitis History: No Pertinent History Psycho-Social History: No Pertinent History Female Reproductive Disorders: No Pertinent History Other Medical History: bruised liver, kidney disease in the past, seasonal allergies, lung ca - Past Surgical History Past Surgical History: Yes Neuro Surgical History: No Pertinent History Cardiac: No Pertinent History Respiratory: Lobectomy Gastrointestinal: Appendectomy, Cholecystectomy, Hernia Repair Genitourinary: No Pertinent History Musculoskeletal: No Pertinent History, Joint Replacement, Orthopedic Surgery Female Surgical History: Hysterectomy, Other Other Surgical History: tonsilectomy, carpal tunnel, trigger finger X3, BLADDER SLING, colorectal, SI fusion, left wedge resection to lungs July 16, 2020 - Social History Smoking Status: Former smoker How long have you smoked: 20 years Exposure to second hand smoke: No Drug Use: none Patient Lives Alone: Yes - Nursing Vital Signs Nursing Vital Signs: Initial Vital Signs Temperature 98.5 F 08/11/21 11:29 Pulse Rate 72 08/11/21 11:29 Respiratory Rate 18 08/11/21 11:29 Blood Pressure 163/72 08/11/21 11:29 O2 Sat by Pulse Oximetry 96 08/11/21 11:29 Pain Scale Pain Intensity 0 - Physical Exam General Appearance: no apparent distress, alert Eye Exam: PERRL/EOMI, eyes nml inspection Ears, Nose, Throat Exam: normal ENT inspection, TMs normal, pharynx normal, m oist mucous membranes Neck Exam: normal inspection, non-tender, supple, full range of motion Respiratory Exam: diminished breath sounds, No respiratory distress, No accessory muscle use Cardiovascular Exam: regular rate/rhythm, normal heart sounds Gastrointestinal/Abdomen Exam: soft, No tenderness Back Exam: normal inspection, normal range of motion Extremity Exam: normal inspection, normal range of motion Neurologic Exam: alert, 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, cooperative Skin Exam: normal color SpO2 Interpretation: normal SpO2: 95 O2 Delivery: Room Air Ordered Tests: Active Orders 24 hr Category Date Time Status CHEST 1 VIEW (PORTABLE) Stat Exams 08/11/21 12:09 Completed BLOOD CULTURE Stat Lab 08/11/21 12:20 Received CBC W DIFF Stat Lab 08/11/21 12:20 Completed CMP Stat Lab 08/11/21 12:20 Completed Lactic Acid Stat Lab 08/11/21 12:25 Completed PROCALCITONIN Stat Lab 08/11/21 12:20 Completed TROPONIN Q3H Lab 08/11/21 12:20 Completed TROPONIN Q3H Lab 08/11/21 14:46 Completed TROPONIN Q3H Lab 08/11/21 18:15 Ordered TROPONIN Q3H Lab 08/11/21 21:15 Ordered TROPONIN Q3H Lab 08/12/21 00:15 Ordered UA W/RFX CULTURE Stat Lab 08/11/21 12:52 Completed Respiratory Therapy Assessment DAILY RT 08/11/21 12:20 Active Medication Summary Discontinued Medications Generic Name Dose Route Start Last Admin Trade Name Meche PRN Reason Stop Dose Admin Albuterol/Ipratropium 3 ml 08/11/21 12:09 08/11/21 12:17 Ipratropium/Albuterol Sulfate 3 Ml Ampul.Neb IH 08/11/21 12:10 3 ml STAT ONE Administration Albuterol/Ipratropium Confirm 08/11/21 12:14 Ipratropium/Albuterol Sulfate 3 Ml Ampul.Neb Administered 08/11/21 12:15 Dose 3 ml IH .STK-MED ONE Lab/Rad Data: Laboratory Result Diagrams 08/11/21 12:20 08/11/21 12:20 Laboratory Results 08/11/21 08/11/21 08/11/21 Range/Units 14:46 12:52 12:25 WBC (4.0-10.5) x10^3/uL RBC (4.1-5.4) x10^6/uL Hgb (12.0-16.0) g/dL Hct (35-47) % MCV (78-100) fL MCH (26-32) pg MCHC (32-36) g/dL RDW (11.5-14.0) % Plt Count (150-450) x10^3/uL MPV (7.5-11.0) fL Gran % (36.0-66.0) % Immature Gran % (Auto) (0.00-0.4) % Nucleat RBC Rel Count (0.00-0.1) % Eos # (Auto) (0-0.5) x10^3/uL Immature Gran # (Auto) (0.00-0.03) x10^3u/L Absolute Lymphs (auto) (1.0-4.6) x10^3/uL Absolute Monos (auto) (0.0-1.3) x10^3/uL Absolute Nucleated RBC (0.00-0.01) x10^3u/L Lymphocytes % (24.0-44.0) % Monocytes % (0.0-12.0) % Eosinophils % (0.00-5.0) % Basophils % (0.0-0.4) % Absolute Granulocytes (1.4-6.9) x10^3/uL Basophils # (0-0.4) x10^3/uL Sodium (137-145) mmol/L Potassium (3.5-5.1) mmol/L Chloride (98-107) mmol/L Carbon Dioxide (22-30) mmol/L Anion Gap (5-15) MEQ/L BUN (7-17) mg/dL Creatinine (0.52-1.04) mg/dL Estimated GFR ML/MIN Glucose (74-106) mg/dL Lactic Acid 0.6 (0.4-2.0) Calcium (8.4-10.2) mg/dL Total Bilirubin (0.2-1.3) mg/dL AST (14-36) U/L ALT (0-35) U/L Alkaline Phosphatase (38-126) U/L Troponin I < 0.012 (0.000-0.034) ng/mL Serum Total Protein (6.3-8.2) g/dL Albumin (3.5-5.0) g/dL Procalcitonin (0.030-0.080) ng/mL Urinalys Dipstick Clnc MAIN LAB Urine Color YELLOW (YELLOW) Urine Appearance CLEAR (CLEAR) Urine pH 7.0 (5-6) Ur Specific [place] 1.015 (1.005-1.025) POC Urine Protein Conf NEGATIVE (Negative) Urine Ketones NEGATIVE (NEGATIVE) Urine Nitrite NEGATIVE (NEGATIVE) Urine Bilirubin NEGATIVE (NEGATIVE) Urine Urobilinogen 0.2 (0-1) mg/dL Urine Leukocytes NEGATIVE (NEGATIVE) Urine WBC (Auto) NONE (0-5) /HPF Urine RBC (Auto) NONE (0-2) /HPF U Epithel Cells (Auto) NONE (FEW) /HPF Urine Bacteria (Auto) NONE (NEGATIVE) /HPF Urine RBC NEGATIVE (0-5) West/ul Ur Culture Indicated? NO Urine Glucose NEGATIVE (NEGATIVE) mg/dL Slides for Path Review 08/11/21 08/11/21 08/11/21 Range/Units 12:20 12:20 12:20 WBC (4.0-10.5) x10^3/uL RBC (4.1-5.4) x10^6/uL Hgb (12.0-16.0) g/dL Hct (35-47) % MCV (78-100) fL MCH (26-32) pg MCHC (32-36) g/dL RDW (11.5-14.0) % Plt Count (150-450) x10^3/uL MPV (7.5-11.0) fL Gran % (36.0-66.0) % Immature Gran % (Auto) (0.00-0.4) % Nucleat RBC Rel Count (0.00-0.1) % Eos # (Auto) (0-0.5) x10^3/uL Immature Gran # (Auto) (0.00-0.03) x10^3u/L Absolute Lymphs (auto) (1.0-4.6) x10^3/uL Absolute Monos (auto) (0.0-1.3) x10^3/uL Absolute Nucleated RBC (0.00-0.01) x10^3u/L Lymphocytes % (24.0-44.0) % Monocytes % (0.0-12.0) % Eosinophils % (0.00-5.0) % Basophils % (0.0-0.4) % Absolute Granulocytes (1.4-6.9) x10^3/uL Basophils # (0-0.4) x10^3/uL Sodium 139 (137-145) mmol/L Potassium 3.5 (3.5-5.1) mmol/L Chloride 104 (98-107) mmol/L Carbon Dioxide 27 (22-30) mmol/L Anion Gap 10.8 (5-15) MEQ/L BUN 19 H (7-17) mg/dL Creatinine 0.62 (0.52-1.04) mg/dL Estimated GFR > 60.0 ML/MIN Glucose 120 H (74-106) mg/dL Lactic Acid (0.4-2.0) Calcium 8.7 (8.4-10.2) mg/dL Total Bilirubin 0.60 (0.2-1.3) mg/dL AST 22 (14-36) U/L ALT 23 (0-35) U/L Alkaline Phosphatase 79 (38-126) U/L Troponin I < 0.012 (0.000-0.034) ng/mL Serum Total Protein 5.9 L (6.3-8.2) g/dL Albumin 3.3 L (3.5-5.0) g/dL Procalcitonin 0.066 (0.030-0.080) ng/mL Urinalys Dipstick Clnc Urine Color (YELLOW) Urine Appearance (CLEAR) Urine pH (5-6) Ur Specific Fortesc[place] (1.005-1.025) POC Urine Protein Conf (Negative) Urine Ketones (NEGATIVE) Urine Nitrite (NEGATIVE) Urine Bilirubin (NEGATIVE) Urine Urobilinogen (0-1) mg/dL Urine Leukocytes (NEGATIVE) Urine WBC (Auto) (0-5) /HPF Urine RBC (Auto) (0-2) /HPF U Epithel Cells (Auto) (FEW) /HPF Urine Bacteria (Auto) (NEGATIVE) /HPF Urine RBC (0-5) West/ul Ur Culture Indicated? Urine Glucose (NEGATIVE) mg/dL Slides for Path Review 08/11/21 Range/Units 12:20 WBC 6.8 (4.0-10.5) x10^3/uL RBC 4.07 L (4.1-5.4) x10^6/uL Hgb 12.3 (12.0-16.0) g/dL Hct 37.0 (35-47) % MCV 90.9 (78-100) fL MCH 30.2 (26-32) pg MCHC 33.2 (32-36) g/dL RDW 13.8 (11.5-14.0) % Plt Count 186 (150-450) x10^3/uL MPV 11.5 H (7.5-11.0) fL Gran % 61.0 (36.0-66.0) % Immature Gran % (Auto) 0.4 (0.00-0.4) % Nucleat RBC Rel Count 0.0 (0.00-0.1) % Eos # (Auto) 0.35 (0-0.5) x10^3/uL Immature Gran # (Auto) 0.03 (0.00-0.03) x10^3u/L Absolute Lymphs (auto) 1.70 (1.0-4.6) x10^3/uL Absolute Monos (auto) 0.56 (0.0-1.3) x10^3/uL Absolute Nucleated RBC 0.00 (0.00-0.01) x10^3u/L Lymphocytes % 24.9 (24.0-44.0) % Monocytes % 8.2 (0.0-12.0) % Eosinophils % 5.1 H (0.00-5.0) % Basophils % 0.4 (0.0-0.4) % Absolute Granulocytes 4.15 (1.4-6.9) x10^3/uL Basophils # 0.03 (0-0.4) x10^3/uL Sodium (137-145) mmol/L Potassium (3.5-5.1) mmol/L Chloride (98-107) mmol/L Carbon Dioxide (22-30) mmol/L Anion Gap (5-15) MEQ/L BUN (7-17) mg/dL Creatinine (0.52-1.04) mg/dL Estimated GFR ML/MIN Glucose (74-106) mg/dL Lactic Acid (0.4-2.0) Calcium (8.4-10.2) mg/dL Total Bilirubin (0.2-1.3) mg/dL AST (14-36) U/L ALT (0-35) U/L Alkaline Phosphatase (38-126) U/L Troponin I (0.000-0.034) ng/mL Serum Total Protein (6.3-8.2) g/dL Albumin (3.5-5.0) g/dL Procalcitonin (0.030-0.080) ng/mL Urinalys Dipstick Clnc Urine Color (YELLOW) Urine Appearance (CLEAR) Urine pH (5-6) Ur Specific [place] (1.005-1.025) POC Urine Protein Conf (Negative) Urine Ketones (NEGATIVE) Urine Nitrite (NEGATIVE) Urine Bilirubin (NEGATIVE) Urine Urobilinogen (0-1) mg/dL Urine Leukocytes (NEGATIVE) Urine WBC (Auto) (0-5) /HPF Urine RBC (Auto) (0-2) /HPF U Epithel Cells (Auto) (FEW) /HPF Urine Bacteria (Auto) (NEGATIVE) /HPF Urine RBC (0-5) West/ul Ur Culture Indicated? Urine Glucose (NEGATIVE) mg/dL Slides for Path Review YES - Progress Progress: improved Air Movement: good Progress Note: 08/11/21 15:59 71-year-old is evaluated for worsening cough. She is given breathing treatment, on reevaluation feeling better. She is not tachypneic or tachycardic and maintaining oxygen saturation around 98% on room air. She has tried multiple courses of steroid and currently on IV antibiotics. Chest x-ray negative for any acute findings and grossly unremarkable lab work for any acute findings as well. I would not give her another course of steroid as it seems like COPD lunchroom mother mony bronchitis. I have tried to get hold of Dr. Cobian patient'si pipe smoker machine operator but could not. She is not in any distress. Recommended trying Mucinex instead of Tessalon Perles and call pipe smoker machine operator/primary care tomorrow for reevaluation. Discussed signs symptoms of worsening needing return to ER which she seems understanding. 08/11/21 16:03 Blood Culture(s) Obtained: Yes Antibiotics given: No Counseled pt/family regarding: lab results, diagnosis, need for follow-up, rad results - Departure Departure Disposition: Home Clinical Impression: COPD with chronic bronchitis Condition: Stable Critical Care Time: No Referrals: WENDY WILLS NP [Primary Care Provider] - Follow up/PCP as directed (1-2 days for reevaluation) KYLE CONNER [CONSULTING PHYSICIAN] - Follow up/PCP as directed (Call for reevaluation in 1 to 2 days.) Instructions: Chronic Obstructive Pulmonary Disease, Cough, Adult (DC) Additional Instructions: Continue with DuoNeb every 4-6 hour as needed. Take Mucinex and stop taking Tessalon Perles. Continue with IV antibiotics. Return to ER for worsening cough or if having difficulty breathing, chest pain or palpitation/fever chills etc. Follow-up with primary care and pulmonology for reevaluation.
[2021-08-11 13:17] LABS: Urine Cultured Indicated? NO
[2021-08-11 13:39] LABS: ALBUMIN 3.3 g/dL (3.5-5.0); ALKALINE PHOSPHATASE 79 U/L (38-126); ANION GAP 10.8 MEQ/L (5-15); BLOOD UREA NITROGEN 19 mg/dL (7-17); CHLORIDE 104 mmol/L (98-107); Calcium 8.7 mg/dL (8.4-10.2); Carbon Dioxide 27 mmol/L (22-30); Creatinine 1 0.62 mg/dL (0.52-1.04); EST GLOMERULAR FILTRATION RATE > 60.0 ML/MIN; Glucose 120 mg/dL (74-106); Potassium 3.5 mmol/L (3.5-5.1); SGOT/AST 22 U/L (14-36); SGPT/ALT 23 U/L (0-35); SODIUM 139 mmol/L (137-145); Total Protein 5.9 g/dL (6.3-8.2)
[2021-08-11 14:12] LABS: Slide Review 1 YES
[2021-08-11 16:01] VITALS: BP 132/68; PULSE 61
[2021-08-11 16:03] VITALS: O2SAT 95
== END 2021-08-11 16:09 | disposition home or self-care (01) ==
LOC: ED 11:21
DX: J42 Unspecified chronic bronchitis (principal); R05.9 Cough, unspecified; Z85.110 Personal history of malignant carcinoid tumor of bronchus and lung; E11.9 Type 2 diabetes mellitus without complications; Z79.899 Other long term (current) drug therapy
CPT/HCPCS: 36415; 71045; 80053; 81015; 83605; 84145; 84484; 85025; 87040; 94640; 96365; 99211; 99284; J0696; J1642; A9270-GY

== ENCOUNTER 2021-09-05 07:00 | Emergency (ER) | payer MEDICARE, OTHER ==
--- NOTE | 2021-09-05 07:18 | ERPHSYRPT ---
- History of Present Illness Time Seen by Provider: 09/05/21 07:10 Source: patient Exam Limitations: no limitations Patient Subjective Stated Complaint: Cough Triage Nursing Assessment: Patient ambulated back to ED and transferred self to bed. Patient A+O X 3. Patient's skin pink, warm and dry. Patient complains of cough for one week. Patient states the cough is productive with yellow/green with occasional flecks on blood in sputum. Lungs noted to have wheezing throughout. Patient complains of chest discomfort when coughing and a headache 5/10. Physician History: This is an obese 71-year-old white female patient of nurse practitioner Leonard has a history of recurrent bronchitis, recurrent pneumonia, lung cancer status post lung lobectomy and wedge resection and who was a former smoker and presents with 5-day history of worsening cough and shortness of breath. She has chest pain associated with coughing. She noticed flecks of blood in her sputum as well from coughing so often. Patient has a history of hypertension, diabetes, seasonal allergies and cardiac arrhythmias. She sees Dr. Sharma as her pulmo nologist. Patient recently underwent an upper GI/barium swallow. The repeat port shows that this test was negative. An echocardiogram was also performed recently but there is no report at this time that I can find. Patient has not had a fever. She has had no diarrhea and no vomiting. Timing/Duration: day(s) (5) Cough Quality/Degree: moderate, blood streaked sputum Possible Cause: frequent episodes Modifying Factors: Improves With: coughing Associated Symptoms: chest pain/soreness, cough Allergies/Adverse Reactions: clarithromycin [From Biaxin] Allergy (Severe, Verified 09/05/21 07:04) Hives Coconut Allergy (Severe, Verified 09/05/21 07:04) Difficulty Breathing green dye *RETIRED-07/03/12 [Green Dye] Allergy (Mild, Verified 09/05/21 07:04) Swelling swelling ears red dye [Red Dye] Allergy (Mild, Verified 09/05/21 07:04) Swelling ears swell adhesive Allergy (Verified 09/05/21 07:04) Rash cholestyramine Allergy (Verified 09/05/21 07:04) iodine Allergy (Verified 09/05/21 07:04) Wheezing latex Allergy (Verified 09/05/21 07:04) Rash nitrofurantoin [From Macrobid] Allergy (Verified 09/05/21 07:04) levofloxacin [From Levaquin] Adverse Reaction (Mild, Verified 09/05/21 07:04) Joint Aches Home Medications: Zolpidem Tartrate [Ambien] 10 mg PO HSPRN PRN 08/16/15 [History] hydroCHLOROthiazide [Hydrochlorothiazide] 1 tab PO DAILY 07/26/20 [History] Rosuvastatin Calcium 5 mg PO WEEKLY 05/29/21 [History] Diphenoxylate HCl/Atropine [Lomotil Tablet] 1 each PO QID 08/05/21 [History] Lansoprazole 30 mg PO DAILY 08/05/21 [History] Fluticasone/Umeclidin/Vilanter [Trelegy Ellipta 200-62.5-25] 1 each IH DAILY 08/10/21 [History] Azelastine HCl 1 spray INTRANASAL HS 09/05/21 [History] Budesonide/Glycopyr/Formoterol [Breztri Aerosphere Inhaler] 2 puffs IH BID 09/05/21 [History] Fluticasone Furoate [Flonase Sensimist] 1 spray INTRANASAL HS 09/05/21 [History] Ipratropium/Albuterol Sulfate [Iprat-Albut 0.5-3(2.5) mg/3 ml] 1 vial IH Q4H PRN PRN 09/05/21 [History] Hx Tetanus, Diphtheria Vaccination/Date Given: Yes Hx Influenza Vaccination/Date Given: Yes Hx Pneumococcal Vaccination/Date Given: Yes Immunizations Up to Date: Yes Travel Risk - International Travel Have you traveled outside of the country in past 3 weeks: No - Coronavirus Screening Are you exhibiting any of the following symptoms?: No Close contact with a COVID-19 positive Pt in past 14-21 Days: No - Vaccine Status Have you recieved a Covid-19 vaccination: Yes Measurer Machine: Moderna - Vaccination Dates Date of 2cond Vaccination (if applicable): apr 2020 Comment: booster - Review of Systems Constitutional: No Symptoms Eyes: No Symptoms Ears, Nose, & Throat: No Symptoms Respiratory: Cough, Dyspnea Cardiac: Chest Pain (With coughing only) Abdominal/Gastrointestinal: No Symptoms Genitourinary Symptoms: No Symptoms Musculoskeletal: No Symptoms Skin: No Symptoms Neurological: No Symptoms Psychological: No Symptoms Endocrine: No Symptoms Hematologic/Lymphatic: No Symptoms Immunological/Allergic: No Symptoms All Other Systems: Reviewed and Negative - Past Medical History Pertinent Past Medical History: Yes Neurological History: No Pertinent History ENT History: No Pertinent History Cardiac History: Arrhythmia, Other Respiratory History: COPD, Other Endocrine Medical History: Diabetes Type II, Other Musculoskeletal History: Osteoarthritis GI Medical History: Diverticulitis, Gallbladder Disease, Pancreatitis History: No Pertinent History Psycho-Social History: No Pertinent History Female Reproductive Disorders: No Pertinent History Other Medical History: bruised liver, kidney disease in the past, seasonal allergies, lung ca - Past Surgical History Past Surgical History: Yes Neuro Surgical History: No Pertinent History Cardiac: No Pertinent History Respiratory: Lobectomy Gastrointestinal: Appendectomy, Cholecystectomy, Hernia Repair Genitourinary: No Pertinent History Musculoskeletal: No Pertinent History, Joint Replacement, Orthopedic Surgery Female Surgical History: Hysterectomy, Other Other Surgical History: tonsilectomy, carpal tunnel, trigger finger X3, BLADDER SLING, colorectal, SI fusion, left wedge resection to lungs July 16, 2020 - Social History Smoking Status: Former smoker How long have you smoked: 20 years Exposure to second hand smoke: No Drug Use: none Patient Lives Alone: Yes - Nursing Vital Signs Nursing Vital Signs: Initial Vital Signs Temperature 98.0 F 09/05/21 07:04 Pulse Rate 66 09/05/21 07:04 Respiratory Rate 17 09/05/21 07:04 Blood Pressure 147/94 09/05/21 07:04 O2 Sat by Pulse Oximetry 98 09/05/21 07:04 Pain Scale Pain Intensity 0 - Physical Exam General Appearance: no apparent distress, mild distress, alert, anxiety, obese Eye Exam: PERRL/EOMI, eyes nml inspection Ears, Nose, Throat Exam: normal ENT inspection, moist mucous membranes Neck Exam: normal inspection, non-tender, supple, full range of motion Respiratory Exam: airway intact, wheezing (Expiratory, bilateral, diffuse), No chest tenderness, No respiratory distress Cardiovascular Exam: regular rate/rhythm, normal heart sounds, normal peripheral pulses Gastrointestinal/Abdomen Exam: soft, normal bowel sounds, No tenderness Pelvic Exam: not done Rectal Exam: not done Back Exam: normal inspection, normal range of motion, No CVA tenderness, No vertebral tenderness Extremity Exam: normal inspection, normal range of motion, pelvis stable Neurologic Exam: alert, 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, cooperative, telephoner II-XII nml as tested, normal mood/affect, nml cerebellar function, nml station & gait, sensation nml Skin Exam: normal color, warm, dry Lymphatic Exam: No adenopathy SpO2 Interpretation: normal SpO2: 98 O2 Delivery: Room Air - Course Nursing assessment & vital signs reviewed: Yes EKG Interpreted by Me: RATE (67), Sinus Rhythm, NORMAL AXIS, NORMAL INTERVALS, NORMAL QRS, Q-wave, NORMAL ST-T, Other (Few PVCs) Ordered Tests: Active Orders 24 hr Category Date Time Status Scientific Research Manager STAT Care 09/05/21 07:27 Active EKG-ER Only STAT Care 09/05/21 07:26 Active IV Insertion STAT Care 09/05/21 07:26 Active Pulse Oximetry (ED) STAT Care 09/05/21 07:26 Active CHEST 1 VIEW (PORTABLE) Stat Exams 09/05/21 07:27 Completed BLOOD CULTURE Stat Lab 09/05/21 07:40 Received CBC W DIFF Stat Lab 09/05/21 07:40 Completed CMP Stat Lab 09/05/21 07:40 Completed CULTURE,SPUTUM Stat Lab 09/05/21 07:26 Ordered D-DIMER QUANTITATIVE Stat Lab 09/05/21 07:40 Completed NT PRO BNP Stat Lab 09/05/21 07:40 Completed PROTIME WITH INR Stat Lab 09/05/21 07:40 Completed TROPONIN Q3H Lab 09/05/21 07:40 Completed TROPONIN Q3H Lab 09/05/21 10:30 Ordered TROPONIN Q3H Lab 09/05/21 13:30 Ordered TROPONIN Q3H Lab 09/05/21 16:30 Ordered TROPONIN Q3H Lab 09/05/21 19:30 Ordered Respiratory Therapy Assessment DAILY RT 09/05/21 08:02 Active Medication Summary Generic Name Dose Route Start Last Admin Trade Name Freq PRN Reason Stop Dose Admin Potassium Chloride 20 meq in 100 mls @ 50 mls/hr 09/05/21 08:13 09/05/21 08:27 Potassium Chloride 20 Meq In Water 100ml IV 09/05/21 10:12 50 mls/hr STAT ONE Administration Sodium Chloride 1,000 mls @ 200 mls/hr 09/05/21 08:45 09/05/21 08:44 Sodium Chloride 0.9% 1000 Ml IV 10/05/21 08:44 200 mls/hr .Q5H BENI Administration Discontinued Medications Generic Name Dose Route Start Last Admin Trade Name Meche PRN Reason Stop Dose Admin Albuterol/Ipratropium 3 ml 09/05/21 07:48 09/05/21 07:59 Ipratropium/Albuterol Sulfate 3 Ml Ampul.Neb IH 09/05/21 07:49 3 ml STAT ONE Administration Albuterol/Ipratropium Confirm 09/05/21 07:54 Ipratropium/Albuterol Sulfate 3 Ml Ampul.Neb Administered 09/05/21 07:55 Dose 3 ml IH .STK-MED ONE Methylprednisolone Sodium 0 mg 09/05/21 07:26 09/05/21 07:34 Succinate 125 mg/ Sterile IV 09/05/21 07:27 125 mg Water 2 ml STAT ONE Administration Potassium Chloride Confirm 09/05/21 08:26 Potassium Chloride 20 Meq In Water 100ml Administered 09/05/21 08:27 Dose 100 mls @ ud IV .STK-MED ONE Methylprednisolone Sodium Succinate Confirm 09/05/21 07:34 Methylprednis Sod Succ 125 Mg/2 Ml Vial Administered 09/05/21 07:35 Dose 125 mg .ROUTE .STK-MED ONE Sterile Water Confirm 09/05/21 07:34 Water For Injection,Sterile 10 Ml Vial Administered 09/05/21 07:35 Dose 10 ml IJ .STK-MED ONE Lab/Rad Data: Laboratory Result Diagrams 09/05/21 07:40 09/05/21 07:40 Laboratory Results 09/05/21 09/05/21 09/05/21 Range/Units 07:40 07:40 07:40 WBC (4.0-10.5) x10^3/uL RBC (4.1-5.4) x10^6/uL Hgb (12.0-16.0) g/dL Hct (35-47) % MCV (78-100) fL MCH (26-32) pg MCHC (32-36) g/dL RDW (11.5-14.0) % Plt Count (150-450) x10^3/uL MPV (7.5-11.0) fL Gran % (36.0-66.0) % Immature Gran % (Auto) (0.00-0.4) % Nucleat RBC Rel Count (0.00-0.1) % Eos # (Auto) (0-0.5) x10^3/uL Immature Gran # (Auto) (0.00-0.03) x10^3u/L Absolute Lymphs (auto) (1.0-4.6) x10^3/uL Absolute Monos (auto) (0.0-1.3) x10^3/uL Absolute Nucleated RBC (0.00-0.01) x10^3u/L Lymphocytes % (24.0-44.0) % Monocytes % (0.0-12.0) % Eosinophils % (0.00-5.0) % Basophils % (0.0-0.4) % Absolute Granulocytes (1.4-6.9) x10^3/uL Basophils # (0-0.4) x10^3/uL PT 10.4 (9.4-12.5) SECONDS INR 0.98 (0.8-3.0) D-Dimer 0.55 H (0.0-0.50) mg/L Sodium (137-145) mmol/L Potassium (3.5-5.1) mmol/L Chloride (98-107) mmol/L Carbon Dioxide (22-30) mmol/L Anion Gap (5-15) MEQ/L BUN (7-17) mg/dL Creatinine (0.52-1.04) mg/dL Estimated GFR ML/MIN Glucose (74-106) mg/dL Calcium (8.4-10.2) mg/dL Total Bilirubin (0.2-1.3) mg/dL AST (14-36) U/L ALT (0-35) U/L Alkaline Phosphatase (38-126) U/L Troponin I < 0.012 (0.000-0.034) ng/mL NT-Pro-B Natriuret Pep (0-900) pg/mL Serum Total Protein (6.3-8.2) g/dL Albumin (3.5-5.0) g/dL Influenza Type A Ag NEGATIVE (NEGATIVE) Influenza Type B Ag NEGATIVE (NEGATIVE) RSV (PCR) POSITIVE (Negative) SARS-CoV-2 (PCR) NEGATIVE (NEGATIVE) 09/05/21 09/05/21 Range/Units 07:40 07:40 WBC 5.5 (4.0-10.5) x10^3/uL RBC 4.39 (4.1-5.4) x10^6/uL Hgb 12.8 (12.0-16.0) g/dL Hct 38.8 (35-47) % MCV 88.4 (78-100) fL MCH 29.2 (26-32) pg MCHC 33.0 (32-36) g/dL RDW 13.7 (11.5-14.0) % Plt Count 136 L (150-450) x10^3/uL MPV 11.3 H (7.5-11.0) fL Gran % 60.7 (36.0-66.0) % Immature Gran % (Auto) 0.2 (0.00-0.4) % Nucleat RBC Rel Count 0.0 (0.00-0.1) % Eos # (Auto) 0.17 (0-0.5) x10^3/uL Immature Gran # (Auto) 0.01 (0.00-0.03) x10^3u/L Absolute Lymphs (auto) 1.34 (1.0-4.6) x10^3/uL Absolute Monos (auto) 0.60 (0.0-1.3) x10^3/uL Absolute Nucleated RBC 0.00 (0.00-0.01) x10^3u/L Lymphocytes % 24.5 (24.0-44.0) % Monocytes % 11.0 (0.0-12.0) % Eosinophils % 3.1 (0.00-5.0) % Basophils % 0.5 (0.0-0.4) % Absolute Granulocytes 3.31 (1.4-6.9) x10^3/uL Basophils # 0.03 (0-0.4) x10^3/uL PT (9.4-12.5) SECONDS INR (0.8-3.0) D-Dimer (0.0-0.50) mg/L Sodium 139 (137-145) mmol/L Potassium 3.0 L* (3.5-5.1) mmol/L Chloride 103 (98-107) mmol/L Carbon Dioxide 28 (22-30) mmol/L Anion Gap 11.1 (5-15) MEQ/L BUN 11 (7-17) mg/dL Creatinine 0.66 (0.52-1.04) mg/dL Estimated GFR > 60.0 ML/MIN Glucose 128 H (74-106) mg/dL Calcium 8.5 (8.4-10.2) mg/dL Total Bilirubin 0.80 (0.2-1.3) mg/dL AST 20 (14-36) U/L ALT 17 (0-35) U/L Alkaline Phosphatase 93 (38-126) U/L Troponin I (0.000-0.034) ng/mL NT-Pro-B Natriuret Pep 686 (0-900) pg/mL Serum Total Protein 6.6 (6.3-8.2) g/dL Albumin 3.6 (3.5-5.0) g/dL Influenza Type A Ag (NEGATIVE) Influenza Type B Ag (NEGATIVE) RSV (PCR) (Negative) SARS-CoV-2 (PCR) (NEGATIVE) - Progress Progress: improved, re-examined Air Movement: good Progress Note: 09/05/21 09:15 No acute cardiopulmonary processes on today's chest x-ray. Patient states she is breathing much better at this time. Blood Culture(s) Obtained: Yes Antibiotics given: No Counseled pt/family regarding: lab results, diagnosis, need for follow-up, rad results - Departure Departure Disposition: Home Clinical Impression: RSV bronchitis Condition: Stable Critical Care Time: No Referrals: SKYLER CEJA, [employer] [Primary Care Provider] - Follow up/PCP as directed Additional Instructions: Drink plenty of liquids. Use your inhalers as prescribed. Over the next 48 hours, use your nebulizers every 4 hours while awake. Take your steroids as p rescribed. Follow-up with your primary care physician for further evaluation and management. Prescriptions: Prednisone 10 mg [Deltasone 10 mg] 10 mg PO TID #12 tablet
[2021-09-05] MEDS ORDERED: solu-MEDROL 125 MG, Sterile H2O 10 ml 2 ML IV ONE ×2 (07:26)
[2021-09-05] MEDS ORDERED: solu-MEDROL ONE (07:34)
[2021-09-05] MEDS ORDERED: Sterile H2O 10 ml IJ ONE (07:34)
[2021-09-05] MEDS ORDERED: DUONEB 0.5-3 MG/3 ml Neb IH ONE ×2 (07:48→07:54)
[2021-09-05 07:53] LABS: Absolute Neutrophil Ct (ANC) 3.31 x10^3/uL (1.4-6.9); Basophil (Absolute #) 0.03 x10^3/uL (0-0.4); Eosinophil % 3.1 % (0.00-5.0); Eosinophil (Absolute #) 0.17 x10^3/uL (0-0.5); Hematocrit 38.8 % (35-47); Hemoglobin 12.8 g/dL (12.0-16.0); Lymphocyte (Absolute #) 1.34 x10^3/uL (1.0-4.6); Lymphocytes % 24.5 % (24.0-44.0); Mean Cell Volume 88.4 fL (78-100); Mean Corpuscular Hemoglobin 29.2 pg (26-32); Mean Platelet Volume 11.3 fL (7.5-11.0); Neutrophil % 60.7 % (36.0-66.0); Platelet Count 136 x10^3/uL (150-450); Red Blood Count 4.39 x10^6/uL (4.1-5.4); Red Cell Distribution Width 13.7 % (11.5-14.0); White Blood Count 5.5 x10^3/uL (4.0-10.5)
[2021-09-05 08:02] LABS: D-DIMER QUANTITATIVE 0.55 mg/L (0.0-0.50); INR 0.98 (0.8-3.0); PROTIME 10.4 SECONDS (9.4-12.5)
[2021-09-05 08:10] LABS: ALBUMIN 3.6 g/dL (3.5-5.0); ALKALINE PHOSPHATASE 93 U/L (38-126); ANION GAP 11.1 MEQ/L (5-15); BLOOD UREA NITROGEN 11 mg/dL (7-17); CHLORIDE 103 mmol/L (98-107); Calcium 8.5 mg/dL (8.4-10.2); Carbon Dioxide 28 mmol/L (22-30); Creatinine 1 0.66 mg/dL (0.52-1.04); EST GLOMERULAR FILTRATION RATE > 60.0 ML/MIN; Glucose 128 mg/dL (74-106); NT PRO BNP 686 pg/mL (0-900); SGOT/AST 20 U/L (14-36); SGPT/ALT 17 U/L (0-35); SODIUM 139 mmol/L (137-145); Total Protein 6.6 g/dL (6.3-8.2)
[2021-09-05] MEDS ORDERED: POTASSIUM CHLORIDE 20 mEq IN WATER 100ML 20 MEQ/100 ML BAG IV ONE (08:13)
[2021-09-05 08:26] LABS: INFLUENZA A NEGATIVE (NEGATIVE); INFLUENZA B NEGATIVE (NEGATIVE); SARS-CoV-2 Xpert Express NEGATIVE (NEGATIVE)
[2021-09-05] MEDS ORDERED: POTASSIUM CHLORIDE 20 mEq IN WATER 100ML 100 ML IV ONE (08:26)
[2021-09-05 08:27] LABS: RESPIRATORY SYNCTIAL VIRUS POSITIVE (Negative)
[2021-09-05] MEDS ORDERED: Sodium Chloride 0.9% 1000 ML 1,000 ML ONE (08:43)
[2021-09-05] MEDS ORDERED: Sodium Chloride 0.9% 1000 ML 1,000 ML IV SCH (08:45)
--- NOTE | 2021-09-05 09:07 | XRAY ---
Indication: Severe cough. Comparison: August 11, 2021. Portable chest unchanged again demonstrating bilateral perihilar suture material and calcified nodes. Remaining heart and lungs unremarkable. No new/acute findings.
[2021-09-05] MEDS ORDERED: HYDROCODONE-ACETAMIN 2.5-108/5 ML SOLUTION PO STA (10:19)
[2021-09-05] MEDS ORDERED: HYDROCODONE-ACETAMIN 2.5-108/5 ML SOLUTION ONE (10:24)
[2021-09-05 12:04] VITALS: BP 122/68; PULSE 80; O2SAT 98
== END 2021-09-05 12:19 | disposition home or self-care (01) ==
LOC: ED 07:00
DX: J20.5 Acute bronchitis due to respiratory syncytial virus (principal); J44.0 Chronic obstructive pulmonary disease with (acute) lower respiratory infection; R05.1 Acute cough; R06.02 Shortness of breath; R04.2 Hemoptysis; R07.9 Chest pain, unspecified; I10 Essential (primary) hypertension; E11.9 Type 2 diabetes mellitus without complications; Z85.118 Personal history of other malignant neoplasm of bronchus and lung; Z79.899 Other long term (current) drug therapy; Z79.52 Long term (current) use of systemic steroids
CPT/HCPCS: 0241U; 36000; 36415; 71045; 80053; 83880; 84484; 85025; 85379; 85610; 87040; 93005; 93041; 94640; 94760; 96374; 99284; J2930; J3480; A9270-GY

== ENCOUNTER 2022-01-09 09:21 | Emergency (ER) | payer MEDICARE, OTHER ==
[2022-01-09] MEDS ORDERED: Sodium Chloride 0.9% 1000 ML 1,000 ML IV SCH (09:30)
[2022-01-09 09:52] LABS: Absolute Neutrophil Ct (ANC) 2.73 x10^3/uL (1.4-6.9); Basophil (Absolute #) 0.03 x10^3/uL (0-0.4); Eosinophil % 6.3 % (0.00-5.0); Hematocrit 38.7 % (35-47); Hemoglobin 12.5 g/dL (12.0-16.0); Lymphocyte (Absolute #) 1.23 x10^3/uL (1.0-4.6); Mean Cell Volume 88.8 fL (78-100); Mean Corpuscular Hemoglobin 28.7 pg (26-32); Mean Corpuscular Hgb Concent. 32.3 g/dL (32-36); Mean Platelet Volume 11.4 fL (7.5-11.0); Monocyte (Absolute #) 0.43 x10^3/uL (0.0-1.3); Monocytes % 9.1 % (0.0-12.0); Neutrophil % 57.8 % (36.0-66.0); Platelet Count 181 x10^3/uL (150-450); Red Blood Count 4.36 x10^6/uL (4.1-5.4); Red Cell Distribution Width 13.3 % (11.5-14.0); White Blood Count 4.7 x10^3/uL (4.0-10.5)
[2022-01-09 10:03] LABS: ALBUMIN 3.9 g/dL (3.5-5.0); ALKALINE PHOSPHATASE 94 U/L (38-126); ANION GAP 10.5 MEQ/L (5-15); BLOOD UREA NITROGEN 13 mg/dL (7-17); CHLORIDE 109 mmol/L (98-107); CK-Creatinine Phosphokinase 34 U/L (30-135); Calcium 8.4 mg/dL (8.4-10.2); Carbon Dioxide 26 mmol/L (22-30); Creatinine 1 0.59 mg/dL (0.52-1.04); EST GLOMERULAR FILTRATION RATE > 60.0 ML/MIN; Glucose 98 mg/dL (74-106); Potassium 3.8 mmol/L (3.5-5.1); SGOT/AST 24 U/L (14-36); SGPT/ALT 18 U/L (0-35); SODIUM 141 mmol/L (137-145); Total Protein 6.7 g/dL (6.3-8.2)
[2022-01-09 10:05] LABS: D-DIMER QUANTITATIVE 0.5 mg/L (0.0-0.50); INR 1.03 (0.8-3.0); PROTIME 10.9 SECONDS (9.4-12.5); PTT 26.8 SECONDS (25.1-36.5)
[2022-01-09] MEDS ORDERED: Sodium Chloride 0.9% 1000 ML 1,000 ML ONE (10:13)
[2022-01-09 10:14] LABS: NT PRO BNP 614 pg/mL (0-900)
[2022-01-09 10:29] LABS: INFLUENZA A NEGATIVE (NEGATIVE); INFLUENZA B NEGATIVE (NEGATIVE); RESPIRATORY SYNCTIAL VIRUS NEGATIVE (Negative); SARS-CoV-2 Xpert Express NEGATIVE (NEGATIVE)
[2022-01-09 11:26] LABS: Appearance CLEAR (CLEAR); Bilirubin NEGATIVE (NEGATIVE); Dipstick done @ ? MAIN LAB; Glucose NEGATIVE (NEGATIVE); Ketones NEGATIVE (NEGATIVE); Nitrite NEGATIVE (NEGATIVE); Protein,Urine Dip NEGATIVE (Negative); RBC NEGATIVE Ery/ul (0-5); Specific Gravity 1.025 (1.005-1.025); Urobilinogen 0.2 mg/dL (0-1)
[2022-01-09 11:35] LABS: WBC 0-2 /HPF (0-5)
[2022-01-09 11:39] LABS: Urine Cultured Indicated? NO
--- NOTE | 2022-01-09 11:44 | ERPHSYRPT ---
- History of Present Illness Time Seen by Provider: 01/09/22 09:35 Historian: patient Exam Limitations: no limitations Patient Subjective Stated Complaint: PT HERE FOR PAIN TO CHEST, SHE STATES FROM INCREASE COUGH AND SOB. PT HAD A HEART CATH A WEEK AGO THAT WAS NORMAL PER HER, AND AN EGD RECENTLY THAT WAS NORMAL, SHE STATES COUGH IS MUCH WORSE AFTER STARTING ON NEW MEDICATION 2 WEEKS AGO, PT HAS LUNG CA Triage Nursing Assessment: PT ALERT, RESP EASY, FACE MASK IN PLACE, HAS DRY COARSE COUGH THAT IS NONPRODUCTIVE,NO EDMA NOTED, SKIN W/D/P Physician History: Patient is a 72-year-old white female who presents with a complaint of chest pain and shortness of breath. She had a catheterization a week ago which showed no signs of any significant coronary artery disease she did have 1 lesion that was reported 30%. She also had a recent EGD about a week ago which was reported normal. She does have metastatic lung cancer she has had a resection of the right upper lobe and a wedge resection is planned for the left side. She also has a mass on her pancreas which is being watched. She was started on Cordarone about a week ago and has not felt well since, she has a non productive cough Activities at Onset: none Quality: dullness Chest Pain Radiation: no radiation Severity of Pain-Max: moderate Severity of Pain-Current: moderate Modifying Factors: Improves With: coughing Associated Symptoms: palpitations, cough (Very painful with coughing), hurts to breathe Prior Chest Pain/Cardiac Workup: non-cardiac (She has chest pain related to her lung CA.), cardiac cath (Normal 1 week ago), recently seen/treated Nitro Today/Relief: no nitro taken today Aspirin Treatment Today: no aspirin today Allergies/Adverse Reactions: clarithromycin [From Biaxin] Allergy (Severe, Verified 01/09/22 09:29) Hives Coconut Allergy (Severe, Verified 01/09/22 09:29) Difficulty Breathing green dye *RETIRED-07/03/12 [Green Dye] Allergy (Mild, Verified 01/09/22 09:29) Swelling swelling ears red dye [Red Dye] Allergy (Mild, Verified 01/09/22 09:29) Swelling ears swell adhesive Allergy (Verified 01/09/22 09:29) Rash cholestyramine Allergy (Verified 01/09/22 09:29) iodine Allergy (Verified 01/09/22 09:29) Wheezing latex Allergy (Verified 01/09/22 09:29) Rash nitrofurantoin [From Macrobid] Allergy (Verified 01/09/22 09:29) levofloxacin [From Levaquin] Adverse Reaction (Mild, Verified 01/09/22 09:29) Joint Aches Home Medications: Zolpidem Tartrate [Ambien] 10 mg PO HSPRN PRN 08/16/15 [History] hydroCHLOROthiazide [Hydrochlorothiazide] 1 tab PO DAILY 07/26/20 [History] Rosuvastatin Calcium 5 mg PO QHS 05/29/21 [History] Diphenoxylate HCl/Atropine [Lomotil Tablet] 1 each PO QID 08/05/21 [History] Lansoprazole 30 mg PO DAILY 08/05/21 [History] Fluticasone/Umeclidin/Vilanter [Trelegy Ellipta 200-62.5-25] 1 each IH DAILY 08/10/21 [History] Azelastine HCl 1 spray INTRANASAL HS 09/05/21 [History] Budesonide/Glycopyr/Formoterol [Breztri Aerosphere Inhaler] 2 puffs IH BID 09/05/21 [History] Fluticasone Furoate [Flonase Sensimist] 1 spray INTRANASAL HS 09/05/21 [History] Ipratropium/Albuterol Sulfate [Iprat-Albut 0.5-3(2.5) mg/3 ml] 1 vial IH Q4H PRN PRN 09/05/21 [History] Amiodarone HCl 200 mg [Cordarone 200 MG] 200 mg PO DAILY 01/09/22 [History] Hx Tetanus, Diphtheria Vaccination/Date Given: Yes Hx Influenza Vaccination/Date Given: Yes Hx Pneumococcal Vaccination/Date Given: Yes Immunizations Up to Date: Yes Travel Risk - International Travel Have you traveled outside of the country in past 3 weeks: No - Coronavirus Screening Are you exhibiting any of the following symptoms?: No Close contact with a COVID-19 positive Pt in past 14-21 Days: No - Vaccine Status Have you recieved a Covid-19 vaccination: Yes [employer]: Modern[employer] - Vaccination Dates Date of 2cond Vaccination (if applicable): 2020 - Review of Systems Constitutional: No Fever, No Chills Eyes: No Symptoms Ears, Nose, & Throat: No Symptoms Respiratory: Cough (Pain with coughing), Dyspnea Cardiac: Chest Pain, No Edema, No Syncope Abdominal/Gastrointestinal: No Abdominal Pain, No Nausea, No Vomiting, No Diarrhea Genitourinary Symptoms: No Dysuria Musculoskeletal: No Back Pain, No Neck Pain Skin: No Rash Neurological: No Dizziness, No Focal Weakness, No Sensory Changes Psychological: No Symptoms Endocrine: No Symptoms All Other Systems: Reviewed and Negative - Past Medical History Pertinent Past Medical History: Yes Neurological History: No Pertinent History ENT History: No Pertinent History Cardiac History: Arrhythmia, Other Respiratory History: COPD, Other Endocrine Medical History: Diabetes Type II, Other Musculoskeletal History: Osteoarthritis GI Medical History: Diverticulitis, Gallbladder Disease, Pancreatitis History: No Pertinent History Psycho-Social History: No Pertinent History Female Reproductive Disorders: No Pertinent History Other Medical History: bruised liver, kidney disease in the past, seasonal allergies, lung ca - Past Surgical History Past Surgical History: Yes Neuro Surgical History: No Pertinent History Cardiac: No Pertinent History Respiratory: Lobectomy Gastrointestinal: Appendectomy, Cholecystectomy, Hernia Repair Genitourinary: No Pertinent History Musculoskeletal: No Pertinent History, Joint Replacement, Orthopedic Surgery Female Surgical History: Hysterectomy, Other Other Surgical History: tonsilectomy, carpal tunnel, trigger finger X3, BLADDER SLING, colorectal, SI fusion, left wedge resection to lungs July 16, 2020 - Social History Smoking Status: Former smoker How long have you smoked: 20 years Exposure to second hand smoke: No Drug Use: none Patient Lives Alone: No - Nursing Vital Signs Nursing Vital Signs: Initial Vital Signs Temperature 97.0 F 01/09/22 09:25 Pulse Rate 58 L 01/09/22 09:25 Respiratory Rate 22 01/09/22 09:25 Blood Pressure 172/71 01/09/22 09:25 O2 Sat by Pulse Oximetry 100 01/09/22 09:25 Pain Scale Pain Intensity 8 - Physical Exam General Appearance: mild distress, alert Eye Exam: PERRL/EOMI, eyes nml inspection Ears, Nose, Throat Exam: normal ENT inspection, moist mucous membranes Neck Exam: normal inspection, non-tender, supple, full range of motion Respiratory Exam: crackles/rales, rhonchi, No respiratory distress Cardiovascular Exam: regular rate/rhythm, normal heart sounds Gastrointestinal/Abdomen Exam: soft, No tenderness, No mass Back Exam: normal inspection, No CVA tenderness, No vertebral tenderness Extremity Exam: normal inspection, normal range of motion Neurologic Exam: alert, 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, cooperative, normal mood/affect, sensation nml, No motor deficits Skin Exam: normal color, warm, dry SpO2: 96 - Course Nursing assessment & vital signs reviewed: Yes EKG Interpreted by Me: RATE (58), Sinus Rhythm, NORMAL AXIS, NORMAL INTERVALS, NORMAL QRS, NORMAL ST-T - CT Exams Chest CT Interpretation: Pneumonia (Left lower lobe airspace disease) Ordered Tests: Active Orders 24 hr Category Date Time Status EKG-ER Only STAT Care 01/09/22 09:30 Active CHEST WITHOUT CONTRAST [CT] Stat Exams 01/09/22 11:13 Completed CBC W DIFF Stat Lab 01/09/22 09:30 Completed CK-Creatinine Phosphokinase Stat Lab 01/09/22 09:30 Completed CMP Stat Lab 01/09/22 09:30 Completed D-DIMER QUANTITATIVE Stat Lab 01/09/22 09:30 Completed Lactic Acid Stat Lab 01/09/22 09:35 Completed NT PRO BNP Stat Lab 01/09/22 09:30 Completed PROCALCITONIN Stat Lab 01/09/22 09:30 Completed PROTIME WITH INR Stat Lab 01/09/22 09:30 Completed PTT Stat Lab 01/09/22 09:30 Completed TROPONIN Q4H Lab 01/09/22 09:30 Completed TROPONIN Q4H Lab 01/09/22 13:30 Ordered TROPONIN Q4H Lab 01/09/22 17:30 Ordered TSH [TSH, 3RD Generation] Stat Lab 01/09/22 10:15 Received UA W/RFX CULTURE Stat Lab 01/09/22 11:06 Completed Medication Summary Generic Name Dose Route Start Last Admin Trade Name Freq PRN Reason Stop Dose Admin Sodium Chloride 1,000 mls @ 100 mls/hr 01/09/22 09:30 01/09/22 10:16 Sodium Chloride 0.9% 1000 Ml IV 02/08/22 09:29 100 mls/hr .Q10H BENI Administration Discontinued Medications Generic Name Dose Route Start Last Admin Trade Name Freq PRN Reason Stop Dose Admin Hydrocodone Bitart/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 1 tab 01/09/22 11:49 01/09/22 11:52 Hydrocodone/Apap 5/325 1 Tab Tablet PO 01/09/22 11:50 1 tab STAT ONE Administration Hydrocodone Bitart/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 Confirm 01/09/22 11:51 Hydrocodone/Apap 5/325 1 Tab Tablet Administered 01/09/22 11:52 Dose 1 tab .ROUTE .STK-MED ONE Lab/Rad Data: Laboratory Result Diagrams 01/09/22 09:30 01/09/22 09:30 Laboratory Results 01/09/22 01/09/22 01/09/22 Range/Units 11:06 09:40 09:35 WBC (4.0-10.5) x10^3/uL RBC (4.1-5.4) x10^6/uL Hgb (12.0-16.0) g/dL Hct (35-47) % MCV (78-100) fL MCH (26-32) pg MCHC (32-36) g/dL RDW (11.5-14.0) % Plt Count (150-450) x10^3/uL MPV (7.5-11.0) fL Gran % (36.0-66.0) % Immature Gran % (Auto) (0.00-0.4) % Nucleat RBC Rel Count (0.00-0.1) % Eos # (Auto) (0-0.5) x10^3/uL Immature Gran # (Auto) (0.00-0.03) x10^3u/L Absolute Lymphs (auto) (1.0-4.6) x10^3/uL Absolute Monos (auto) (0.0-1.3) x10^3/uL Absolute Nucleated RBC (0.00-0.01) x10^3u/L Lymphocytes % (24.0-44.0) % Monocytes % (0.0-12.0) % Eosinophils % (0.00-5.0) % Basophils % (0.0-0.4) % Absolute Granulocytes (1.4-6.9) x10^3/uL Basophils # (0-0.4) x10^3/uL PT (9.4-12.5) SECONDS INR (0.8-3.0) APTT (25.1-36.5) SECONDS D-Dimer (0.0-0.50) mg/L Sodium (137-145) mmol/L Potassium (3.5-5.1) mmol/L Chloride (98-107) mmol/L Carbon Dioxide (22-30) mmol/L Anion Gap (5-15) MEQ/L BUN (7-17) mg/dL Creatinine (0.52-1.04) mg/dL Estimated GFR ML/MIN Glucose (74-106) mg/dL Lactic Acid 1.2 (0.4-2.0) Calcium (8.4-10.2) mg/dL Total Bilirubin (0.2-1.3) mg/dL AST (14-36) U/L ALT (0-35) U/L Alkaline Phosphatase (38-126) U/L Creatine Kinase (30-135) U/L Troponin I (0.000-0.034) ng/mL NT-Pro-B Natriuret Pep (0-900) pg/mL Serum Total Protein (6.3-8.2) g/dL Albumin (3.5-5.0) g/dL Procalcitonin (0.030-0.080) ng/mL Urinalys Dipstick Clnc MAIN LAB Urine Color YELLOW (YELLOW) Urine Appearance CLEAR (CLEAR) Urine pH 7.0 (5-6) Ur Specific [place] 1.025 (1.005-1.025) POC Urine Protein Conf NEGATIVE (Negative) Urine Ketones NEGATIVE (NEGATIVE) Urine Nitrite NEGATIVE (NEGATIVE) Urine Bilirubin NEGATIVE (NEGATIVE) Urine Urobilinogen 0.2 (0-1) mg/dL Urine Leukocytes NEGATIVE (NEGATIVE) Urine WBC (Auto) 0-2 (0-5) /HPF Urine RBC (Auto) NONE (0-2) /HPF U Epithel Cells (Auto) NONE (FEW) /HPF Urine Bacteria (Auto) Not Reportable Urine RBC NEGATIVE (0-5) West[place]ul Ur Culture Indicated? NO Urine Glucose NEGATIVE (NEGATIVE) mg/dL Influenza Type A Ag NEGATIVE (NEGATIVE) Influenza Type B Ag NEGATIVE (NEGATIVE) RSV (PCR) NEGATIVE (Negative) SARS-CoV-2 (PCR) NEGATIVE (NEGATIVE) 01/09/22 01/09/22 01/09/22 Range/Units 09:30 09:30 09:30 WBC (4.0-10.5) x10^3/uL RBC (4.1-5.4) x10^6/uL Hgb (12.0-16.0) g/dL Hct (35-47) % MCV (78-100) fL MCH (26-32) pg MCHC (32-36) g/dL RDW (11.5-14.0) % Plt Count (150-450) x10^3/uL MPV (7.5-11.0) fL Gran % (36.0-66.0) % Immature Gran % (Auto) (0.00-0.4) % Nucleat RBC Rel Count (0.00-0.1) % Eos # (Auto) (0-0.5) x10^3/uL Immature Gran # (Auto) (0.00-0.03) x10^3u/L Absolute Lymphs (auto) (1.0-4.6) x10^3/uL Absolute Monos (auto) (0.0-1.3) x10^3/uL Absolute Nucleated RBC (0.00-0.01) x10^3u/L Lymphocytes % (24.0-44.0) % Monocytes % (0.0-12.0) % Eosinophils % (0.00-5.0) % Basophils % (0.0-0.4) % Absolute Granulocytes (1.4-6.9) x10^3/uL Basophils # (0-0.4) x10^3/uL PT 10.9 (9.4-12.5) SECONDS INR 1.03 (0.8-3.0) APTT 26.8 (25.1-36.5) SECONDS D-Dimer 0.50 (0.0-0.50) mg/L Sodium 141 (137-145) mmol/L Potassium 3.8 (3.5-5.1) mmol/L Chloride 109 H (98-107) mmol/L Carbon Dioxide 26 (22-30) mmol/L Anion Gap 10.5 (5-15) MEQ/L BUN 13 (7-17) mg/dL Creatinine 0.59 (0.52-1.04) mg/dL Estimated GFR > 60.0 ML/MIN Glucose 98 (74-106) mg/dL Lactic Acid (0.4-2.0) Calcium 8.4 (8.4-10.2) mg/dL Total Bilirubin 0.90 (0.2-1.3) mg/dL AST 24 (14-36) U/L ALT 18 (0-35) U/L Alkaline Phosphatase 94 (38-126) U/L Creatine Kinase 34 (30-135) U/L Troponin I (0.000-0.034) ng/mL NT-Pro-B Natriuret Pep 614 (0-900) pg/mL Serum Total Protein 6.7 (6.3-8.2) g/dL Albumin 3.9 (3.5-5.0) g/dL Procalcitonin 0.057 (0.030-0.080) ng/mL Urinalys Dipstick Clnc Urine Color (YELLOW) Urine Appearance (CLEAR) Urine pH (5-6) Ur Specific [place] (1.005-1.025) POC Urine Protein Conf (Negative) Urine Ketones (NEGATIVE) Urine Nitrite (NEGATIVE) Urine Bilirubin (NEGATIVE) Urine Urobilinogen (0-1) mg/dL Urine Leukocytes (NEGATIVE) Urine WBC (Auto) (0-5) /HPF Urine RBC (Auto) (0-2) /HPF U Epithel Cells (Auto) (FEW) /HPF Urine Bacteria (Auto) Urine RBC (0-5) [place]/ul Ur Culture Indicated? Urine Glucose (NEGATIVE) mg/dL Influenza Type A Ag (NEGATIVE) Influenza Type B Ag (NEGATIVE) RSV (PCR) (Negative) SARS-CoV-2 (PCR) (NEGATIVE) 01/09/22 01/09/22 Range/Units 09:30 09:30 WBC 4.7 (4.0-10.5) x10^3/uL RBC 4.36 (4.1-5.4) x10^6/uL Hgb 12.5 (12.0-16.0) g/dL Hct 38.7 (35-47) % MCV 88.8 (78-100) fL MCH 28.7 (26-32) pg MCHC 32.3 (32-36) g/dL RDW 13.3 (11.5-14.0) % Plt Count 181 (150-450) x10^3/uL MPV 11.4 H (7.5-11.0) fL Gran % 57.8 (36.0-66.0) % Immature Gran % (Auto) 0.2 (0.00-0.4) % Nucleat RBC Rel Count 0.0 (0.00-0.1) % Eos # (Auto) 0.30 (0-0.5) x10^3/uL Immature Gran # (Auto) 0.01 (0.00-0.03) x10^3u/L Absolute Lymphs (auto) 1.23 (1.0-4.6) x10^3/uL Absolute Monos (auto) 0.43 (0.0-1.3) x10^3/uL Absolute Nucleated RBC 0.00 (0.00-0.01) x10^3u/L Lymphocytes % 26.0 (24.0-44.0) % Monocytes % 9.1 (0.0-12.0) % Eosinophils % 6.3 H (0.00-5.0) % Basophils % 0.6 (0.0-0.4) % Absolute Granulocytes 2.73 (1.4-6.9) x10^3/uL Basophils # 0.03 (0-0.4) x10^3/uL PT (9.4-12.5) SECONDS INR (0.8-3.0) APTT (25.1-36.5) SECONDS D-Dimer (0.0-0.50) mg/L Sodium (137-145) mmol/L Potassium (3.5-5.1) mmol/L Chloride (98-107) mmol/L Carbon Dioxide (22-30) mmol/L Anion Gap (5-15) MEQ/L BUN (7-17) mg/dL Creatinine (0.52-1.04) mg/dL Estimated GFR ML/MIN Glucose (74-106) mg/dL Lactic Acid (0.4-2.0) Calcium (8.4-10.2) mg/dL Total Bilirubin (0.2-1.3) mg/dL AST (14-36) U/L ALT (0-35) U/L Alkaline Phosphatase (38-126) U/L Creatine Kinase (30-135) U/L Troponin I < 0.012 (0.000-0.034) ng/mL NT-Pro-B Natriuret Pep (0-900) pg/mL Serum Total Protein (6.3-8.2) g/dL Albumin (3.5-5.0) g/dL Procalcitonin (0.030-0.080) ng/mL Urinalys Dipstick Clnc Urine Color (YELLOW) Urine Appearance (CLEAR) Urine pH (5-6) Ur Specific [place] (1.005-1.025) POC Urine Protein Conf (Negative) Urine Ketones (NEGATIVE) Urine Nitrite (NEGATIVE) Urine Bilirubin (NEGATIVE) Urine Urobilinogen (0-1) mg/dL Urine Leukocytes (NEGATIVE) Urine WBC (Auto) (0-5) /HPF Urine RBC (Auto) (0-2) /HPF U Epithel Cells (Auto) (FEW) /HPF Urine Bacteria (Auto) Urine RBC (0-5) [place]ul Ur Culture Indicated? Urine Glucose (NEGATIVE) mg/dL Influenza Type A Ag (NEGATIVE) Influenza Type B Ag (NEGATIVE) RSV (PCR) (Negative) SARS-CoV-2 (PCR) (NEGATIVE) - Progress Progress: unchanged Air Movement: good Progress Note: 01/09/22 12:26 Patient was concerned about slowing of her heart rate since she started Cordarone she asked that we contact Dr. Jhonny victor to see if there was any changes he wished to be made he did recommend cutting her amiodarone dose from 200/day to 100/day. We also forwarded her CT scan to [facility] where her oncologist Dr. Rhina Thomas would be able to view it. Blood Culture(s) Obtained: No Antibiotics given: Yes - Departure Departure Disposition: Home Clinical Impression: Left lower lobe pneumonia, Bradycardia Condition: Stable Critical Care Time: No Referrals: SKYLER CEJA, NABEEL [Primary Care Provider] - Follow up/PCP as directed Instructions: Pneumonia, Adult (DC) Prescriptions: Cefdinir 300 mg PO BID 10 Days #20 cap
[2022-01-09] MEDS ORDERED: NORCO 5/325 MG PO ONE (11:49)
[2022-01-09] MEDS ORDERED: NORCO 5/325 MG ONE (11:51)
--- NOTE | 2022-01-09 11:57 | XRAY ---
Indication: Cough and short of breath 3 weeks. History lung cancer with bilateral lobectomy. Multiple contiguous axial images obtained through the chest without contrast. Comparison: None Right suprahilar and left mid hilar suture material. Mild bilateral scattered fibrosis/scarring, greatest left midlung. Left lower lung demonstrates small focus of patchy peripheral airspace disease without effusion. Heart not enlarged. Aorta is normal in course and caliber. [place] bilateral hilar calcified nodes. No pathologic mediastinal lymphadenopathy. Bony thorax intact with osteopenia and moderate degenerative changes throughout the spine. Limited upper abdomen demonstrates multiple epigastric and cholecystectomy surgical clips. Impression: 1. Peripheral left lower lung patchy airspace disease. 2. Postsurgical changes, chronic bony findings, and old granulomatous disease.
[2022-01-09] MEDS ORDERED: ROCEPHIN 1 Gm-D5w 50 ml Bag** 1 G/50 ML IVPB IV ONE (12:51)
[2022-01-09] MEDS ORDERED: ROCEPHIN 1 Gm-D5w 50 ml Bag** 1 G/50 ML IVPB IV STA (12:52)
[2022-01-09 13:20] VITALS: BP 156/79; PULSE 54; O2SAT 98
[2022-01-09 13:20] LABS: Slide Review 1 YES
== END 2022-01-09 13:20 | disposition home or self-care (01) ==
LOC: ED 09:21
DX: J18.9 Pneumonia, unspecified organism (principal); R00.1 Bradycardia, unspecified; R07.9 Chest pain, unspecified; R06.02 Shortness of breath; R05.9 Cough, unspecified; J44.9 Chronic obstructive pulmonary disease, unspecified; E11.9 Type 2 diabetes mellitus without complications; Z79.899 Other long term (current) drug therapy; Z20.828 Contact with and (suspected) exposure to other viral communicable diseases
CPT/HCPCS: 0241U; 36000; 36415; 71250; 80053; 81015; 82550; 83605; 83880; 84145; 84443; 84484; 85025; 85379; 85610; 85730; 93005; 96365; 99284; J0696; A9270-GY

== ENCOUNTER 2022-01-21 18:16 | Emergency (ER) | payer MEDICARE, OTHER ==
[2022-01-21] MEDS ORDERED: MORPHINE SULFATE 4 MG INJ IM ONE (18:28)
[2022-01-21] MEDS ORDERED: Adacel Vial IM ONE ×2 (18:29→18:38)
[2022-01-21] MEDS ORDERED: MORPHINE SULFATE 4 MG INJ ONE (18:31)
[2022-01-21] MEDS ORDERED: BACIGUENT PACKET ONE (18:41)
--- NOTE | 2022-01-21 19:21 | ERPHSYRPT ---
- History of Present Illness Time Seen by Provider: 01/21/22 18:19 Source: patient Exam Limitations: no limitations Patient Subjective Stated Complaint: pt here for laceration to lower lwft leg, she states she tripped at [employer] on bleacher and hurt her leg, no other injury Triage Nursing Assessment: pt walked in, blood on pants, small amout of bleeding to lower left leg, has to large skin tears, moves al ext well Physician History: 71-year-old female not on blood thinner presented in the ER after she was trying to get on a bleacher and accidentally tripped and hit her left bartlett against the edge with skin tear and bleeding. Bleeding is stopped with applying pressure. Patient is able to walk but complaining of moderate intensity sharp pain in the left bartlett. No injury anywhere else. Timing/Duration: today, constant, sudden Quality: painful Severity: moderate Location: extremities Possible Causes: other Associated Symptoms: denies symptoms Allergies/Adverse Reactions: clarithromycin [From Biaxin] Allergy (Severe, Verified 01/21/22 18:24) Hives Coconut Allergy (Severe, Verified 01/21/22 18:24) Difficulty Breathing green dye *RETIRED-07/03/12 [Green Dye] Allergy (Mild, Verified 01/21/22 18:24) Swelling swelling ears red dye [Red Dye] Allergy (Mild, Verified 01/21/22 18:24) Swelling ears swell adhesive Allergy (Verified 01/21/22 18:24) Rash cholestyramine Allergy (Verified 01/21/22 18:24) iodine Allergy (Verified 01/21/22 18:24) Wheezing latex Allergy (Verified 01/21/22 18:24) Rash nitrofurantoin [From Macrobid] Allergy (Verified 01/21/22 18:24) levofloxacin [From Levaquin] Adverse Reaction (Mild, Verified 01/21/22 18:24) Joint Aches Home Medications: Zolpidem Tartrate [Ambien] 10 mg PO HSPRN PRN 08/16/15 [History] hydroCHLOROthiazide [Hydrochlorothiazide] 1 tab PO DAILY 07/26/20 [History] Rosuvastatin Calcium 5 mg PO QHS 05/29/21 [History] Diphenoxylate HCl/Atropine [Lomotil Tablet] 1 each PO QID 08/05/21 [History] Lansoprazole 30 mg PO DAILY 08/05/21 [History] Fluticasone/Umeclidin/Vilanter [Trelegy Ellipta 200-62.5-25] 1 each IH DAILY 08/10/21 [History] Azelastine HCl 1 spray INTRANASAL HS 09/05/21 [History] Budesonide/Glycopyr/Formoterol [Breztri Aerosphere Inhaler] 2 puffs IH BID 09/05/21 [History] Fluticasone Furoate [Flonase Sensimist] 1 spray INTRANASAL HS 09/05/21 [History] Ipratropium/Albuterol Sulfate [Iprat-Albut 0.5-3(2.5) mg/3 ml] 1 vial IH Q4H PRN PRN 09/05/21 [History] Amiodarone HCl 200 mg [Cordarone 200 MG] 200 mg PO DAILY 01/09/22 [History] Hx Tetanus, Diphtheria Vaccination/Date Given: No Hx Influenza Vaccination/Date Given: Yes Hx Pneumococcal Vaccination/Date Given: Yes Travel Risk - International Travel Have you traveled outside of the country in past 3 weeks: No - Coronavirus Screening Are you exhibiting any of the following symptoms?: No Close contact with a COVID-19 positive Pt in past 14-21 Days: No - Vaccine Status Have you recieved a Covid-19 vaccination: Yes 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 - Vaccination Dates Date of 2cond Vaccination (if applicable): 2020 - Review of Systems Constitutional: No Symptoms Ears, Nose, & Throat: No Symptoms Respiratory: No Symptoms Cardiac: No Symptoms Abdominal/Gastrointestinal: No Symptoms Genitourinary Symptoms: No Symptoms Musculoskeletal: Fall, Injury Skin: Skin Lesions Neurological: No Symptoms Endocrine: No Symptoms Immunological/Allergic: No Symptoms - Past Medical History Pertinent Past Medical History: Yes Neurological History: No Pertinent History ENT History: No Pertinent History Cardiac History: Arrhythmia, Other Respiratory History: COPD, Other Endocrine Medical History: Diabetes Type II, Other Musculoskeletal History: Osteoarthritis GI Medical History: Diverticulitis, Gallbladder Disease, Pancreatitis History: No Pertinent History Psycho-Social History: No Pertinent History Female Reproductive Disorders: No Pertinent History Other Medical History: bruised liver, kidney disease in the past, seasonal allergies, lung ca - Past Surgical History Past Surgical History: Yes Neuro Surgical History: No Pertinent History Cardiac: No Pertinent History Respiratory: Lobectomy Gastrointestinal: Appendectomy, Cholecystectomy, Hernia Repair Genitourinary: No Pertinent History Musculoskeletal: No Pertinent History, Joint Replacement, Orthopedic Surgery Female Surgical History: Hysterectomy, Other Other Surgical History: tonsilectomy, carpal tunnel, trigger finger X3, BLADDER SLING, colorectal, SI fusion, left wedge resection to lungs July 16, 2020 - Social History Smoking Status: Former smoker How long have you smoked: 20 years Exposure to second hand smoke: No Drug Use: none Patient Lives Alone: Yes - Nursing Vital Signs Nursing Vital Signs: Initial Vital Signs Temperature 97.2 F 01/21/22 18:26 Pulse Rate 66 01/21/22 18:26 Respiratory Rate 18 01/21/22 18:26 Blood Pressure 177/74 01/21/22 18:26 O2 Sat by Pulse Oximetry 99 01/21/22 18:26 Pain Scale Pain Intensity 7 - Physical Exam General Appearance: no apparent distress, alert Eye Exam: PERRL/EOMI Ears, Nose, Throat Exam: normal ENT inspection, pharynx normal Neck Exam: normal inspection, supple, full range of motion Respiratory Exam: normal breath sounds, lungs clear Cardiovascular Exam: regular rate/rhythm, normal heart sounds Gastrointestinal/Abdomen Exam: soft, No tenderness Back Exam: normal inspection Extremity Exam: lacerations (Multiple skin tears left anterior lower leg with slow oozing. No active spurting.), tenderness Neurologic Exam: alert, 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, cooperative Skin Exam: normal color SpO2 Interpretation: normal SpO2: 99 O2 Delivery: Room Air Ordered Tests: Active Orders 24 hr Category Date Time Status LOWER LEG Stat Exams 01/21/22 18:37 Taken Medication Summary Discontinued Medications Generic Name Dose Route Start Last Admin Trade Name Kirillq PRN Reason Stop Dose Admin Bacitracin Zinc Confirm 01/21/22 18:41 Bacitracin Packet 1 Each Pckt Administered 01/21/22 18:42 Dose 2 each .ROUTE .STK-MED ONE Diphtheria/Tetanus/Acell Pertussis 0.5 ml 01/21/22 18:29 01/21/22 18:41 Tdap --Diph,Pertuss(Acell),Tet Vac/Pf 0.5 Ml Vial IM 01/21/22 18:30 0.5 ml .ONCE ONE Administration Diphtheria/Tetanus/Acell Pertussis Confirm 01/21/22 18:38 Tdap --Diph,Pertuss(Acell),Tet Vac/Pf 0.5 Ml Vial Administered 01/21/22 18:39 Dose 0.5 ml IM .STK-MED ONE Morphine Sulfate 4 mg 01/21/22 18:28 01/21/22 18:32 Morphine Sulfate 4 Mg/Ml Injection IM 01/21/22 18:29 4 mg STAT ONE Administration Morphine Sulfate Confirm 01/21/22 18:31 Morphine Sulfate 4 Mg/Ml Injection Administered 01/21/22 18:32 Dose 4 mg .ROUTE .STK-MED ONE - Progress Progress: improved Progress Note: 01/21/22 19:20 Given morphine for symptomatic relief. Tetanus is updated. Skin tear cleaned and bacitracin/nonadherent dressing applied. Recommended outpatient follow-up with primary care and may need referral for wound care. X-rays recommended Tylenol as needed. Negative for acute fracture bartlett/fibula reviewed by me, official report is pending. Discussed signs symptoms of worsening/wound infection needing return to ER which she seems understanding. 01/21/22 19:20 Counseled pt/family regarding: diagnosis, need for follow-up, rad results - Departure Departure Disposition: Home Clinical Impression: Skin tear, Contusion of leg, left Condition: Stable Critical Care Time: No Referrals: SKYLER CEJA NP [Primary Care Provider] - Follow up/PCP as directed (In 2 days for reevaluation) Instructions: Wound Care (DC) Additional Instructions: Take Tylenol as needed. Intermittent ice application. Follow-up with primary care for reevaluation and may need wound care referral. Daily dressing changes. Return to ER for increasing pain swelling, fever chills etc. Weightbearing as tolerated.
[2022-01-21] MEDS ORDERED: NORCO 5/325 MG PO ONE (20:04)
--- NOTE | 2022-01-21 20:09 | XRAY ---
Indication: Laceration following fall. Comparison: None 2 view left lower leg demonstrates osteopenia, total knee arthroplasty with intact prosthesis, and small plantar heel spur. No other bony, articular, or soft tissue abnormalities.
[2022-01-21] MEDS ORDERED: NORCO 5/325 MG ONE (20:12)
[2022-01-21 20:22] VITALS: BP 164/70; PULSE 71; O2SAT 97
== END 2022-01-21 21:07 | disposition home or self-care (01) ==
LOC: ED 18:16
DX: S81.812A Laceration without foreign body, left lower leg, initial encounter (principal); S80.12XA Contusion of left lower leg, initial encounter; W22.03XA Walked into furniture, initial encounter; E11.9 Type 2 diabetes mellitus without complications; J44.9 Chronic obstructive pulmonary disease, unspecified; Z79.899 Other long term (current) drug therapy
CPT/HCPCS: 73590; 90471; 90715; 96372; 99283; J2270; A9270-GY

== ENCOUNTER 2022-07-01 12:55 | Emergency (ER) | payer MEDICARE, OTHER ==
--- NOTE | 2022-07-01 13:00 | ERPHSYRPT ---
- History of Present Illness Time Seen by Provider: 07/01/22 13:00 Source: patient Exam Limitations: no limitations Physician History: This is a morbidly obese 71-year-old white female who presents with right flank pain (8 out of 10) since yesterday. Pain has persisted today. "I think I have a UTI or kidney infection". Patient denies fall or trauma to her back. She denies chest pain. She denies shortness of breath. She has not had a cough. She has no abdominal pain. Patient has a history of hyperlipidemia, hypertension, gastroesophageal reflux disease, arrhythmia and COPD. 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 Timing/Duration: yesterday Activites at Onset: none Quality: sharpness Onset Location: right flank Pain Radiation: none, right flank Severity of Pain-Max: moderate Severity of Pain-Current: moderate Sexual intercourse history: non-contributory Modifying Factors: Improves With: nothing Associated Symptoms: denies symptoms Allergies/Adverse Reactions: clarithromycin [From Biaxin] Allergy (Severe, Verified 07/01/22 13:44) Hives Coconut Allergy (Severe, Verified 07/01/22 13:44) Difficulty Breathing green dye *RETIRED-07/03/12 [Green Dye] Allergy (Mild, Verified 07/01/22 13:44) Swelling swelling ears red dye [Red Dye] Allergy (Mild, Verified 07/01/22 13:44) Swelling ears swell adhesive Allergy (Verified 07/01/22 13:44) Rash cholestyramine Allergy (Verified 07/01/22 13:44) iodine Allergy (Verified 07/01/22 13:44) Wheezing latex Allergy (Verified 07/01/22 13:44) Rash nitrofurantoin [From Macrobid] Allergy (Verified 07/01/22 13:44) levofloxacin [From Levaquin] Adverse Reaction (Mild, Verified 07/01/22 13:44) Joint Aches Home Medications: Zolpidem Tartrate [Ambien] 10 mg PO HSPRN PRN 08/16/15 [History] hydroCHLOROthiazide [Hydrochlorothiazide] 1 tab PO DAILY 07/26/20 [History] Rosuvastatin Calcium 5 mg PO QHS 05/29/21 [History] Diphenoxylate HCl/Atropine [Lomotil Tablet] 1 each PO QID 08/05/21 [History] Lansoprazole 30 mg PO DAILY 08/05/21 [History] Fluticasone/Umeclidin/Vilanter [Trelegy Ellipta 200-62.5-25] 1 each IH DAILY 08/10/21 [History] Azelastine HCl 1 spray INTRANASAL HS 09/05/21 [History] Budesonide/Glycopyr/Formoterol [Breztri Aerosphere Inhaler] 2 puffs IH BID 09/05/21 [History] Fluticasone Furoate [Flonase Sensimist] 1 spray INTRANASAL HS 09/05/21 [History] Ipratropium/Albuterol Sulfate [Iprat-Albut 0.5-3(2.5) mg/3 ml] 1 vial IH Q4H PRN PRN 09/05/21 [History] Amiodarone HCl 200 mg [Cordarone 200 MG] 200 mg PO DAILY 01/09/22 [History] Hx Tetanus, Diphtheria Vaccination/Date Given: No Hx Influenza Vaccination/Date Given: Yes Hx Pneumococcal Vaccination/Date Given: Yes Travel Risk - International Travel Have you traveled outside of the country in past 3 weeks: No - Coronavirus Screening Are you exhibiting any of the following symptoms?: No Close contact with a COVID-19 positive Pt in past 14-21 Days: No - Vaccine Status Have you recieved a Covid-19 vaccination: 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 - Vaccination Dates Date of 2cond Vaccination (if applicable): 2020 - Review of Systems Constitutional: No Symptoms Eyes: No Symptoms Ears, Nose, & Throat: No Symptoms Respiratory: No Symptoms Cardiac: No Symptoms Abdominal/Gastrointestinal: No Symptoms Genitourinary Symptoms: Flank Pain (Right) Musculoskeletal: No Symptoms Skin: No Symptoms Neurological: No Symptoms Psychological: No Symptoms Endocrine: No Symptoms Hematologic/Lymphatic: No Symptoms Immunological/Allergic: No Symptoms All Other Systems: Reviewed and Negative - Past Medical History Pertinent Past Medical History: Yes Neurological History: No Pertinent History ENT History: No Pertinent History Cardiac History: Arrhythmia, Other Respiratory History: COPD, Other Endocrine Medical History: Diabetes Type II, Other Musculoskeletal History: Osteoarthritis GI Medical History: Diverticulitis, Gallbladder Disease, Pancreatitis History: No Pertinent History Psycho-Social History: No Pertinent History Female Reproductive Disorders: No Pertinent History Other Medical History: bruised liver, kidney disease in the past, seasonal allergies, lung ca - Past Surgical History Past Surgical History: Yes Neuro Surgical History: No Pertinent History Cardiac: No Pertinent History Respiratory: Lobectomy Gastrointestinal: Appendectomy, Cholecystectomy, Hernia Repair Genitourinary: No Pertinent History Musculoskeletal: No Pertinent History, Joint Replacement, Orthopedic Surgery Female Surgical History: Hysterectomy, Other Other Surgical History: tonsilectomy, carpal tunnel, trigger finger X3, BLADDER SLING, colorectal, SI fusion, left wedge resection to lungs July 16, 2020 - Social History Smoking Status: Former smoker How long have you smoked: 20 years Exposure to second hand smoke: No Drug Use: none Patient Lives Alone: Yes - Nursing Vital Signs Nursing Vital Signs: Initial Vital Signs Temperature 97.9 F 07/01/22 13:47 Pulse Rate 60 07/01/22 13:47 Respiratory Rate 17 07/01/22 13:47 Blood Pressure 134/88 07/01/22 13:47 O2 Sat by Pulse Oximetry 99 07/01/22 13:47 Pain Scale Pain Intensity 8 - Physical Exam General Appearance: no apparent distress, alert, anxiety, obese Eye Exam: PERRL/EOMI, eyes nml inspection Ears, Nose, Throat Exam: normal ENT inspection, moist mucous membranes Neck Exam: normal inspection, non-tender, supple, full range of motion Respiratory Exam: normal breath sounds, lungs clear, No chest tenderness, No respiratory distress Cardiovascular Exam: regular rate/rhythm, normal heart sounds, normal peripheral pulses Gastrointestinal/Abdomen Exam: soft, normal bowel sounds, No tenderness, No guarding, No pulsatile mass Pelvic Exam: not done Rectal Exam: not done Back Exam: normal inspection, normal range of motion, CVA tenderness (Right), No vertebral tenderness Extremity Exam: normal inspection, normal range of motion, pelvis stable Neurologic Exam: alert, 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, 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, 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 as 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, normal mood/affect, nml cerebellar function, nml station & gait, sensation nml Skin Exam: normal color, warm, dry Lymphatic Exam: No adenopathy SpO2 Interpretation: normal O2 Delivery: Room Air - Course Nursing assessment & vital signs reviewed: Yes Ordered Tests: Active Orders 24 hr Category Date Time Status CULTURE,URINE Stat Lab 07/01/22 13:41 Received UA W/RFX UR CULTURE Stat Lab 07/01/22 13:41 Completed Medication Summary Discontinued Medications Generic Name Dose Route Start Last Admin Trade Name Meche PRN Reason Stop Dose Admin Ketorolac Tromethamine 60 mg 07/01/22 13:46 07/01/22 14:06 Ketorolac Tromethamine 30 Mg/Ml Inj IM 07/01/22 13:47 60 mg STAT ONE Administration Ketorolac Tromethamine Confirm 07/01/22 13:48 Ketorolac Tromethamine 30 Mg/Ml Inj Administered 07/01/22 13:49 Dose 60 mg .ROUTE .STK-MED ONE Ketorolac Tromethamine Confirm 07/01/22 14:06 Ketorolac Tromethamine 30 Mg/Ml Inj Administered 07/01/22 14:07 Dose 60 mg .ROUTE .STK-MED ONE Trimethoprim/Sulfamethoxazole 1 tab 07/01/22 14:31 Smz/Tmp Ds Tablet 1 Tablet PO 07/01/22 14:32 STAT ONE Lab/Rad Data: Laboratory Results 07/01/22 Range/Units 13:41 Urine Color [place] A (Yellow) Urine Appearance Cloudy A (Clear) Urine pH 5.5 (4.6-8.0) Ur Specific [place] 1.020 (1.005-1.030) Urine Protein 30 (Negative) Urine Glucose (UA) Negative (Negative) mg/dL Urine Ketones Negative (Negative) Urine Blood Large A (Negative) Urine Nitrite Positive A (Negative) Urine Bilirubin Small A (Negative) Urine Urobilinogen 1.0 A (0.2) mg/dL Ur Leukocyte Esterase Moderate A (Negative) U Hyaline Cast (Auto) NONE SEEN (0-2) /LPF Urine Microscopic RBC >100 A (0-5) /HPF Urine Microscopic WBC 51-100 A (0-5) /HPF Ur Epithelial Cells Few (None Seen) /HPF Urine Bacteria None Seen (None Seen) /HPF Urine Culture Reflexed YES (NO) - Progress Progress: improved Air Movement: good Progress Note: 07/01/22 14:34 This patient's medical issue is 1 of low complexity. The level of complexity and work-up is based on the review of the patient's past medical history, review of the medication list, review of the drug allergy list, history of present illness and physical findings on examination. The only work-up necessary for this patient is a urinalysis. I reviewed the results of the urinalysis. She has a moderate urinary tract infection. We will place her on Bactrim DS and send a prescription to her pharmacy electronically. Blood Culture(s) Obtained: No Antibiotics given: Yes Counseled pt/family regarding: lab results, diagnosis, need for follow-up Medical Desision Making - Diagnostic Testing Diagnostic test were ordered, analyzed, and reviewed by me: Yes - Risk of complications The pt has a mod risk of morbidity or mortality based on: Need for prescription drug management - Departure Departure Disposition: Home Clinical Impression: UTI (urinary tract infection) Condition: Stable Critical Care Time: No Referrals: SKYLER CEJA, NABEEL [Primary Care Provider] - Follow up/PCP as directed Additional Instructions: Drink plenty of fluids. Use Tylenol and ibuprofen for pain control. Take your medication as prescribed. Follow-up with your primary care physician for further evaluation management. Prescriptions: Smz/Tmp Ds Tablet [Bactrim Ds Tablet] 1 udtab PO BID #14 tablet
[2022-07-01] MEDS ORDERED: TORAdol 30 mg Injection IM ONE (13:46)
[2022-07-01] MEDS ORDERED: TORAdol 30 mg Injection ONE ×2 (13:48→14:06)
[2022-07-01 13:52] VITALS: O2SAT 99
[2022-07-01 14:18] LABS: Appearance Cloudy (Clear); Bacteria None Seen /HPF (None Seen); Bilirubin Small (Negative); Blood Large (Negative); Epithelial Cells Few /HPF (None Seen); Glucose, Urine Negative (Negative); Hyaline Casts NONE SEEN /LPF (0-2); Ketones Negative (Negative); Leukocyte Esterase Moderate (Negative); Nitrite Positive (Negative); Ph 5.5 (4.6-8.0); Protein,Urine Dip 30 (Negative); RBC >100 /HPF (0-5); WBC 51-100 /HPF (0-5)
[2022-07-01 14:20] VITALS: BP 160/66; PULSE 56
[2022-07-01 14:20] LABS: ADD URINE CULTURE? YES (NO)
[2022-07-01] MEDS ORDERED: BACTRIM DS TABLET PO ONE ×2 (14:31→14:46)
== END 2022-07-01 14:54 | disposition home or self-care (01) ==
LOC: ED 12:55
DX: N39.0 Urinary tract infection, site not specified (principal); R10.9 Unspecified abdominal pain; E78.5 Hyperlipidemia, unspecified; I10 Essential (primary) hypertension; E11.9 Type 2 diabetes mellitus without complications; Z79.899 Other long term (current) drug therapy
CPT/HCPCS: 81001; 87086; 96372; 99283; J1885; A9270-GY

== ENCOUNTER 2022-07-21 08:08 | Inpatient (IN) | payer MEDICARE, OTHER ==
[2022-07-21] MEDS ORDERED: DUONEB 0.5-3 MG/3 ml Neb IH ONE ×3 (08:13→14:07)
[2022-07-21] MEDS ORDERED: solu-MEDROL 125 MG, Sterile H2O 10 ml 2 ML IV ONE ×2 (08:13)
[2022-07-21] MEDS ORDERED: ROCEPHIN 1 Gm-D5w 50 ml Bag** 1 G/50 ML IVPB IV STA (08:13)
[2022-07-21] MEDS ORDERED: Sodium Chloride 0.9% 1000 ML 1,000 ML IV SCH (08:15)
[2022-07-21] MEDS ORDERED: solu-MEDROL ONE (08:27)
[2022-07-21] MEDS ORDERED: ROCEPHIN 1 Gm-D5w 50 ml Bag** 1 G/50 ML IVPB IV ONE (08:27)
[2022-07-21] MEDS ORDERED: Sterile H2O 10 ml IJ ONE (08:27)
[2022-07-21 09:01] LABS: Absolute Neutrophil Ct (ANC) 4.71 x10^3/uL (1.4-6.9); BASOPHIL % 0.6 % (0.0-0.4); Basophil (Absolute #) 0.04 x10^3/uL (0-0.4); Eosinophil % 1.8 % (0.00-5.0); Eosinophil (Absolute #) 0.12 x10^3/uL (0-0.5); Hematocrit 35.5 % (35-47); Hemoglobin 11.4 g/dL (12.0-16.0); IMMATURE GRAN # 0.01 x10^3u/L (0.00-0.03); IMMATURE GRAN % 0.2 % (0.00-0.4); Lymphocyte (Absolute #) 1.11 x10^3/uL (1.0-4.6); Lymphocytes % 16.9 % (24.0-44.0); Mean Cell Volume 90.8 fL (78-100); Mean Corpuscular Hemoglobin 29.2 pg (26-32); Mean Corpuscular Hgb Concent. 32.1 g/dL (32-36); Mean Platelet Volume 11.9 fL (7.5-11.0); Monocyte (Absolute #) 0.57 x10^3/uL (0.0-1.3); Monocytes % 8.7 % (0.0-12.0); Neutrophil % 71.8 % (36.0-66.0); Platelet Count 121 x10^3/uL (150-450); Red Blood Count 3.91 x10^6/uL (4.1-5.4); White Blood Count 6.6 x10^3/uL (4.0-10.5)
--- NOTE | 2022-07-21 09:01 | XRAY ---
Indication: Cough. Hemoptysis. History lung cancer with right upper lobectomy. Comparison: January 04, 2022 Portable chest demonstrates stable bilateral perihilar suture material and calcified nodes. No focal infiltrate, consolidation, or large effusion. Heart not enlarged with new left dual-lead pacemaker. Bony thorax intact again with osteopenia mild degenerative changes. Impression: Continued nonacute chest with chronic features.
[2022-07-21 09:26] LABS: ALBUMIN 3.7 g/dL (3.5-5.0); ALKALINE PHOSPHATASE 95 U/L (38-126); ANION GAP 10.8 MEQ/L (5-15); BLOOD UREA NITROGEN 14 mg/dL (7-17); CHLORIDE 107 mmol/L (98-107); Calcium 8.3 mg/dL (8.4-10.2); Carbon Dioxide 28 mmol/L (22-30); Creatinine 1 0.74 mg/dL (0.52-1.04); EST GLOMERULAR FILTRATION RATE > 60.0 ML/MIN; Glucose 132 mg/dL (74-106); NT PRO BNPII 1350 pg/mL (<300); Potassium 3.7 mmol/L (3.5-5.1); SGOT/AST 20 U/L (14-36); SGPT/ALT 17 U/L (0-35); SODIUM 141 mmol/L (137-145); TROPONIN < 0.012 ng/mL (0.000-0.034); Total Protein 6.6 g/dL (6.3-8.2)
--- NOTE | 2022-07-21 09:35 | ERPHSYRPT ---
- History of Present Illness Time Seen by Provider: 07/21/22 08:20 Source: patient Exam Limitations: no limitations Patient Subjective Stated Complaint: SOB Triage Nursing Assessment: Patient ambulated back to ED and transferred self to bed. Patient A+O X 3. Patient's skin pink, warm and dry. Patient complains of productive cough and increased SOB over the past two days. Patient states today she coughed and noticed blood mixed in sputum. Patient's lung noted to be diminished throughout. Patient states cough is productive with green/brown sput um. Patient complains of chest disomcomfort when coughing 5/10. Physician History: Patient is a 71-year-old white female who presents with a complaint of shortness of breath. She has a history of lung CA and has had a right upper lobe lobectomy and a left lower lobe wedge resection for cancer of the lung. An has so has COPD. She says that her allergies have been frequently problem in the last 4 days have been especially severe. She has also frequent pneumonias at 2 AM this morning she did cough up some blood something she has never done before. Timing/Duration: day(s) (4) Severity of Dyspnea-Max: moderate Severity of Dyspnea-Current: moderate Possible Cause: frequent episodes, allergen exposure Modifying Factors: Improves With: albuterol nebulizer, coughing, exertion Associated Symptoms: constant, cough, wheezing Allergies/Adverse Reactions: clarithromycin [From Biaxin] Allergy (Severe, Verified 07/21/22 08:12) Hives Coconut Allergy (Severe, Verified 07/21/22 08:12) Difficulty Breathing green dye *RETIRED-07/03/12 [Green Dye] Allergy (Mild, Verified 07/21/22 08:12) Swelling swelling ears red dye [Red Dye] Allergy (Mild, Verified 07/21/22 08:12) Swelling ears swell adhesive Allergy (Verified 07/21/22 08:12) Rash cholestyramine Allergy (Verified 07/21/22 08:12) iodine Allergy (Verified 07/21/22 08:12) Wheezing latex Allergy (Verified 07/21/22 08:12) Rash nitrofurantoin [From Macrobid] Allergy (Verified 07/21/22 08:12) levofloxacin [From Levaquin] Adverse Reaction (Mild, Verified 07/21/22 08:12) Joint Aches Home Medications: Zolpidem Tartrate [Ambien] 10 mg PO HSPRN PRN 08/16/15 [History] hydroCHLOROthiazide [Hydrochlorothiazide] 1 tab PO DAILY 07/26/20 [History] Rosuvastatin Calcium 5 mg PO QHS 05/29/21 [History] Diphenoxylate HCl/Atropine [Lomotil Tablet] 1 each PO QID 08/05/21 [History] Lansoprazole 30 mg PO DAILY 08/05/21 [History] Fluticasone/Umeclidin/Vilanter [Trelegy Ellipta 200-62.5-25] 1 each IH DAILY 08/10/21 [History] Azelastine HCl 1 spray INTRANASAL HS 09/05/21 [History] Budesonide/Glycopyr/Formoterol [Breztri Aerosphere Inhaler] 2 puffs IH BID 09/05/21 [History] Fluticasone Furoate [Flonase Sensimist] 1 spray INTRANASAL HS 09/05/21 [History] Ipratropium/Albuterol Sulfate [Iprat-Albut 0.5-3(2.5) mg/3 ml] 1 vial IH Q4H PRN PRN 09/05/21 [History] Amiodarone HCl 200 mg [Cordarone 200 MG] 200 mg PO DAILY 01/09/22 [History] Hx Tetanus, Diphtheria Vaccination/Date Given: No Hx Influenza Vaccination/Date Given: Yes Hx Pneumococcal Vaccination/Date Given: Yes Immunizations Up to Date: Yes Travel Risk - International Travel Have you traveled outside of the country in past 3 weeks: No - Coronavirus Screening Are you exhibiting any of the following symptoms?: No Close contact with a COVID-19 positive Pt in past 14-21 Days: No - Vaccine Status Have you recieved a Covid-19 vaccination: Yes Home Companion: Moderna - Vaccination Dates Date of 2cond Vaccination (if applicable): 2020 - Review of Systems Constitutional: No Fever, No Chills Eyes: No Symptoms Ears, Nose, & Throat: No Symptoms Respiratory: Cough, Dyspnea, Dyspnea on Exertion (WILSON), Wheezing Cardiac: No Chest Pain, No Edema, No Syncope Abdominal/Gastrointestinal: No Abdominal Pain, No Nausea, No Vomiting, No Diarrhea Genitourinary Symptoms: No Dysuria Musculoskeletal: No Back Pain, No Neck Pain Skin: No Rash Neurological: No Dizziness, No Focal Weakness, No Sensory Changes Psychological: No Symptoms Endocrine: No Symptoms All Other Systems: Reviewed and Negative - Past Medical History Pertinent Past Medical History: Yes Neurological History: No Pertinent History ENT History: No Pertinent History Cardiac History: Arrhythmia, Other Respiratory History: COPD, Other Endocrine Medical History: Diabetes Type II, Other Musculoskeletal History: Osteoarthritis GI Medical History: Diverticulitis, Gallbladder Disease, Pancreatitis History: No Pertinent History Psycho-Social History: No Pertinent History Female Reproductive Disorders: No Pertinent History Other Medical History: bruised liver, kidney disease in the past, seasonal allergies, lung ca - Past Surgical History Past Surgical History: Yes Neuro Surgical History: No Pertinent History Cardiac: Pacemaker Respiratory: Lobectomy Gastrointestinal: Appendectomy, Cholecystectomy, Hernia Repair Genitourinary: No Pertinent History Musculoskeletal: No Pertinent History, Joint Replacement, Orthopedic Surgery Female Surgical History: Hysterectomy, Other Other Surgical History: tonsilectomy, carpal tunnel, trigger finger X3, BLADDER SLING, colorectal, SI fusion, left wedge resection to lungs July 16, 2020 - Social History Smoking Status: Former smoker How long have you smoked: 20 years Exposure to second hand smoke: No Drug Use: none Patient Lives Alone: Yes - Nursing Vital Signs Nursing Vital Signs: Initial Vital Signs Temperature 98.7 F 07/21/22 08:16 Pulse Rate 63 07/21/22 08:16 Respiratory Rate 20 07/21/22 08:16 Blood Pressure 173/67 07/21/22 08:16 O2 Sat by Pulse Oximetry 99 07/21/22 08:16 Pain Scale Pain Intensity 5 - Physical Exam General Appearance: moderate distress, alert Eye Exam: PERRL/EOMI Neck Exam: normal inspection, supple Respiratory Exam: respiratory distress, airway intact, diminished breath sounds, crackles/rales, rhonchi, wheezing Cardiovascular/Chest Exam: normal heart sounds, regular rate/rhythm Abdominal/Gastrointestinal Exam: soft, No tenderness, No distention, No mass Extremity Exam: non-tender, normal range of motion, normal inspection, no calf tenderness, no pedal edema Neurologic Exam: alert, 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, cooperative, final finisher II-XII nml as tested, sensation nml, No motor deficits Skin Exam: normal color, warm, No dry SpO2 Interpretation: normal SpO2: 97 O2 Delivery: Room Air - Course Nursing assessment & vital signs reviewed: Yes EKG Interpreted by Me: RATE (69), Sinus Rhythm, NORMAL AXIS, NORMAL INTERVALS, NORMAL QRS, NORMAL ST-T - Radiology Exams Chest X-ray Interpretation: Reviewed by me, Other (Chest x-ray shows chronic changes and is stable) Ordered Tests: Active Orders 24 hr Category Date Time Status EKG-ER Only STAT Care 07/21/22 08:13 Active IV Insertion STAT Care 07/21/22 08:13 Active CHEST 1 VIEW (PORTABLE) Stat Exams 07/21/22 08:15 Completed BLOOD CULTURE Stat Lab 07/21/22 08:54 Received CBC W DIFF Stat Lab 07/21/22 08:54 Completed CMP Stat Lab 07/21/22 08:54 Completed CULTURE,SPUTUM Stat Lab 07/21/22 09:06 Received Lactic Acid Stat Lab 07/21/22 08:50 Completed NT PRO BNPII Stat Lab 07/21/22 08:54 Completed TROPONIN Q4H Lab 07/21/22 12:15 Ordered TROPONIN Q4H Lab 07/21/22 16:15 Ordered TROPONIN Stat Lab 07/21/22 08:54 Completed UA W/RFX UR CULTURE Stat Lab 07/21/22 09:30 Completed Respiratory Therapy Assessment DAILY RT 07/21/22 09:01 Active Medication Summary Generic Name Dose Route Start Last Admin Trade Name Freq PRN Reason Stop Dose Admin Hydrocodone Bitart/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 10 ml 07/21/22 12:02 07/21/22 12:05 Hydrocodone/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 5 Ml Udcup PO 07/26/22 12:01 10 ml Q4HPRN PRN Administration PAIN Sodium Chloride 1,000 mls @ 100 mls/hr 07/21/22 08:15 07/21/22 08:48 Sodium Chloride 0.9% 1000 Ml IV 08/20/22 08:14 100 mls/hr .Q10H BENI Administration Discontinued Medications Generic Name Dose Route Start Last Admin Trade Name Freq PRN Reason Stop Dose Admin Albuterol/Ipratropium 3 ml 07/21/22 08:13 07/21/22 08:45 Ipratropium/Albuterol Sulfate 3 Ml Ampul.Neb IH 07/21/22 08:14 3 ml STAT ONE Administration Albuterol/Ipratropium Confirm 07/21/22 08:47 Ipratropium/Albuterol Sulfate 3 Ml Ampul.Neb Administered 07/21/22 08:48 Dose 3 ml IH .STK-MED ONE Methylprednisolone Sodium 0 mg 07/21/22 08:13 07/21/22 08:48 Succinate 125 mg/ Sterile IV 07/21/22 08:14 125 mg Water 2 ml STAT ONE Administration Ceftriaxone Sodium/Dextrose 1 g in 50 mls @ 100 mls/hr 07/21/22 08:13 07/21/22 09:35 Rocephin 1 Gm-D5w 50 Ml Bag IV 07/21/22 08:42 Infused STAT STA Infusion Ceftriaxone Sodium/Dextrose Confirm 07/21/22 08:27 Rocephin 1 Gm-D5w 50 Ml Bag Administered 07/21/22 08:28 Dose 1 g in 50 mls @ ud IV .STK-MED ONE Methylprednisolone Sodium Succinate Confirm 07/21/22 08:27 Methylprednis Sod Succ 125 Mg/2 Ml Vial Administered 07/21/22 08:28 Dose 125 mg .ROUTE .STK-MED ONE Sterile Water Confirm 07/21/22 08:27 Water For Injection,Sterile 10 Ml Vial Administered 07/21/22 08:28 Dose 10 ml IJ .STK-MED ONE Lab/Rad Data: Laboratory Result Diagrams 07/21/22 08:54 07/21/22 08:54 Laboratory Results 07/21/22 07/21/22 07/21/22 Range/Units 09:30 08:54 08:54 WBC (4.0-10.5) x10^3/uL RBC (4.1-5.4) x10^6/uL Hgb (12.0-16.0) g/dL Hct (35-47) % MCV (78-100) fL MCH (26-32) pg MCHC (32-36) g/dL RDW (11.5-14.0) % Plt Count (150-450) x10^3/uL MPV (7.5-11.0) fL Gran % (36.0-66.0) % Immature Gran % (Auto) (0.00-0.4) % Nucleat RBC Rel Count (0.00-0.1) % Eos # (Auto) (0-0.5) x10^3/uL Immature Gran # (Auto) (0.00-0.03) x10^3u/L Absolute Lymphs (auto) (1.0-4.6) x10^3/uL Absolute Monos (auto) (0.0-1.3) x10^3/uL Absolute Nucleated RBC (0.00-0.01) x10^3u/L Lymphocytes % (24.0-44.0) % Monocytes % (0.0-12.0) % Eosinophils % (0.00-5.0) % Basophils % (0.0-0.4) % Absolute Granulocytes (1.4-6.9) x10^3/uL Basophils # (0-0.4) x10^3/uL Sodium 141 (137-145) mmol/L Potassium 3.7 (3.5-5.1) mmol/L Chloride 107 (98-107) mmol/L Carbon Dioxide 28 (22-30) mmol/L Anion Gap 10.8 (5-15) MEQ/L BUN 14 (7-17) mg/dL Creatinine 0.74 (0.52-1.04) mg/dL Estimated GFR > 60.0 ML/MIN Glucose 132 H (74-106) mg/dL Lactic Acid (0.4-2.0) Calcium 8.3 L (8.4-10.2) mg/dL Total Bilirubin 0.60 (0.2-1.3) mg/dL AST 20 (14-36) U/L ALT 17 (0-35) U/L Alkaline Phosphatase 95 (38-126) U/L Troponin I < 0.012 (0.000-0.034) ng/mL NT-Pro-B Natriuret Pep 1350 (<300) pg/mL Serum Total Protein 6.6 (6.3-8.2) g/dL Albumin 3.7 (3.5-5.0) g/dL Urine Color Yellow (Yellow) Urine Appearance Clear (Clear) Urine pH 6.5 (4.6-8.0) Ur Specific [place] 1.010 (1.005-1.030) Urine Protein Negative (Negative) Urine Glucose (UA) Negative (Negative) mg/dL Urine Ketones Negative (Negative) Urine Blood Negative (Negative) Urine Nitrite Negative (Negative) Urine Bilirubin Negative (Negative) Urine Urobilinogen 0.2 (0.2) mg/dL Ur Leukocyte Esterase Negative (Negative) U Hyaline Cast (Auto) NONE SEEN (0-2) /LPF Urine Microscopic RBC 0-2 (0-5) /HPF Urine Microscopic WBC 0-2 (0-5) /HPF Ur Epithelial Cells None Seen (None Seen) /HPF Urine Bacteria None Seen (None Seen) /HPF Urine Culture Reflexed NO (NO) Influenza Type A Ag NEGATIVE (NEGATIVE) Influenza Type B Ag NEGATIVE (NEGATIVE) RSV (PCR) NEGATIVE (NEGATIVE) SARS-CoV-2 (PCR) NEGATIVE (NEGATIVE) 07/21/22 07/21/22 Range/Units 08:54 08:50 WBC 6.6 (4.0-10.5) x10^3/uL RBC 3.91 L (4.1-5.4) x10^6/uL Hgb 11.4 L (12.0-16.0) g/dL Hct 35.5 (35-47) % MCV 90.8 (78-100) fL MCH 29.2 (26-32) pg MCHC 32.1 (32-36) g/dL RDW 15.0 H (11.5-14.0) % Plt Count 121 L (150-450) x10^3/uL MPV 11.9 H (7.5-11.0) fL Gran % 71.8 H (36.0-66.0) % Immature Gran % (Auto) 0.2 (0.00-0.4) % Nucleat RBC Rel Count 0.0 (0.00-0.1) % Eos # (Auto) 0.12 (0-0.5) x10^3/uL Immature Gran # (Auto) 0.01 (0.00-0.03) x10^3u/L Absolute Lymphs (auto) 1.11 (1.0-4.6) x10^3/uL Absolute Monos (auto) 0.57 (0.0-1.3) x10^3/uL Absolute Nucleated RBC 0.00 (0.00-0.01) x10^3u/L Lymphocytes % 16.9 L (24.0-44.0) % Monocytes % 8.7 (0.0-12.0) % Eosinophils % 1.8 (0.00-5.0) % Basophils % 0.6 (0.0-0.4) % Absolute Granulocytes 4.71 (1.4-6.9) x10^3/uL Basophils # 0.04 (0-0.4) x10^3/uL Sodium (137-145) mmol/L Potassium (3.5-5.1) mmol/L Chloride (98-107) mmol/L Carbon Dioxide (22-30) mmol/L Anion Gap (5-15) MEQ/L BUN (7-17) mg/dL Creatinine (0.52-1.04) mg/dL Estimated GFR ML/MIN Glucose (74-106) mg/dL Lactic Acid 0.8 (0.4-2.0) Calcium (8.4-10.2) mg/dL Total Bilirubin (0.2-1.3) mg/dL AST (14-36) U/L ALT (0-35) U/L Alkaline Phosphatase (38-126) U/L Troponin I (0.000-0.034) ng/mL NT-Pro-B Natriuret Pep (<300) pg/mL Serum Total Protein (6.3-8.2) g/dL Albumin (3.5-5.0) g/dL Urine Color (Yellow) Urine Appearance (Clear) Urine pH (4.6-8.0) Ur Specific [place] (1.005-1.030) Urine Protein (Negative) Urine Glucose (UA) (Negative) mg/dL Urine Ketones (Negative) Urine Blood (Negative) Urine Nitrite (Negative) Urine Bilirubin (Negative) Urine Urobilinogen (0.2) mg/dL Ur Leukocyte Esterase (Negative) U Hyaline Cast (Auto) (0-2) /LPF Urine Microscopic RBC (0-5) /HPF Urine Microscopic WBC (0-5) /HPF Ur Epithelial Cells (None Seen) /HPF Urine Bacteria (None Seen) /HPF Urine Culture Reflexed (NO) Influenza Type A Ag (NEGATIVE) Influenza Type B Ag (NEGATIVE) RSV (PCR) (NEGATIVE) SARS-CoV-2 (PCR) (NEGATIVE) - Progress Progress: unchanged Air Movement: fair Blood Culture(s) Obtained: Yes Antibiotics given: Yes Discussed with : Sarah Will see patient in: hospital (observation) Medical Desision Making - Discussion of managment Care discussed with:: on-call "doc" Reviewed:: Test results Agreed on:: Treatment plan, decision to admit Will see patient: in hospital - Diagnostic Testing Diagnostic test were ordered, analyzed, and reviewed by me: Yes Radiological Interpretation: Reviewed by me - Risk of complications The pt has a mod risk of morbidity or mortality based on: Need for prescription drug management - Departure Departure Disposition: Observation Clinical Impression: COPD exacerbation Condition: Fair Critical Care Time: No Referrals: SKYLER [facility] ORDER CHECKER PACKER PROCESSER [Primary Care Provider] - Follow up/PCP as directed Instructions: Chronic Obstructive Pulmonary Disease, Shortness of Breath (Dyspnea) (DC), Exacerbation of COPD (DC)
[2022-07-21 09:40] LABS: INFLUENZA A NEGATIVE (NEGATIVE); INFLUENZA B NEGATIVE (NEGATIVE); RESPIRATORY SYNCTIAL VIRUS NEGATIVE (NEGATIVE); SARS-CoV-2 Xpert Express NEGATIVE (NEGATIVE)
[2022-07-21 09:53] LABS: Appearance Clear (Clear); Bacteria None Seen /HPF (None Seen); Bilirubin Negative (Negative); Blood Negative (Negative); Epithelial Cells None Seen /HPF (None Seen); Glucose, Urine Negative (Negative); Hyaline Casts NONE SEEN /LPF (0-2); Ketones Negative (Negative); Leukocyte Esterase Negative (Negative); Nitrite Negative (Negative); Ph 6.5 (4.6-8.0); Protein,Urine Dip Negative (Negative); RBC 0-2 /HPF (0-5); Urobilinogen 0.2 mg/dL (0.2); WBC 0-2 /HPF (0-5)
[2022-07-21 09:54] LABS: ADD URINE CULTURE? NO (NO)
[2022-07-21] MEDS: HYDROCODONE-ACETAMIN 2.5-108/5 ML SOLUTION PO PRN ×3 (12:05→21:13)
[2022-07-21] MEDS: Sodium Chloride 0.9% 1000 ML 1,000 ML IV SCH (13:16)
[2022-07-21] MEDS: TYLENOL EXTRA STRENGTH 500 MG PO PRN ×2 (13:56→22:20)
[2022-07-21] MEDS: DUONEB 0.5-3 MG/3 ml Neb IH SCH ×3 (14:10→23:19)
[2022-07-21] MEDS: HUMALOG SQ PRN ×2 (17:11→21:05)
[2022-07-21] MEDS ORDERED: solu-MEDROL 125 MG, Sterile H2O 10 ml 2 ML IV SCH ×2 (18:00)
[2022-07-21] MEDS: Advair Hfa 230/21 Mcg COMMON CANISTER IH SCH (19:30)
[2022-07-21] MEDS: DIOVAN 80 MG PO SCH (21:03)
[2022-07-21] MEDS: Singulair 10 MG PO SCH (21:03)
[2022-07-21] MEDS: Cordarone 200 MG PO SCH (21:04)
[2022-07-21] MEDS: Zocor 10MG PO SCH (21:05)
[2022-07-21] MEDS: Paxil 20 MG PO SCH (21:05)
[2022-07-21] MEDS ORDERED: NON-FORMULARY ITEM (Amiodarone Hcl [Amiodarone Hcl] 100 MG Tablet) PO SCH (22:00)
[2022-07-21] MEDS ORDERED: NON-FORMULARY ITEM (Budesonide/Glycopyr/Formoterol [Breztri Aerosphere Inhaler] 10.7 GM Hf IH SCH (22:00)
[2022-07-21] MEDS ORDERED: AZELASTINE HCL 205.5 MCG/0.137 ML INTRANASAL SCH (22:00)
[2022-07-21] MEDS ORDERED: NON-FORMULARY ITEM (Rosuvastatin Calcium [Rosuvastatin Calcium] 5 MG Tablet) PO SCH (22:00)
[2022-07-21] MEDS ORDERED: PUMP INTRANASAL SCH (22:00)
[2022-07-21] MEDS: Ambien 10 MG PO PRN (23:27)
[2022-07-22] MEDS ORDERED: solu-MEDROL ONE ×2 (01:43→01:54)
[2022-07-22] MEDS: solu-MEDROL 80 MG, Sterile H2O 10 ml 2 ML IV SCH ×4 (01:58→09:20)
[2022-07-22] MEDS: DUONEB 0.5-3 MG/3 ml Neb IH SCH ×6 (03:23→23:33)
[2022-07-22] MEDS: HYDROCODONE-ACETAMIN 2.5-108/5 ML SOLUTION PO PRN ×4 (05:32→21:38)
[2022-07-22 05:49] LABS: Hematocrit 35.8 % (35-47); Hemoglobin 11.5 g/dL (12.0-16.0); Mean Cell Volume 91.8 fL (78-100); Mean Corpuscular Hemoglobin 29.5 pg (26-32); Mean Corpuscular Hgb Concent. 32.1 g/dL (32-36); Mean Platelet Volume 11.7 fL (7.5-11.0); Platelet Count 123 x10^3/uL (150-450); Red Cell Distribution Width 15.1 % (11.5-14.0); White Blood Count 6.3 x10^3/uL (4.0-10.5)
[2022-07-22 06:21] LABS: ALBUMIN 3.8 g/dL (3.5-5.0); ALKALINE PHOSPHATASE 87 U/L (38-126); ANION GAP 13.2 MEQ/L (5-15); BLOOD UREA NITROGEN 15 mg/dL (7-17); CHLORIDE 103 mmol/L (98-107); Calcium 8.4 mg/dL (8.4-10.2); Carbon Dioxide 24 mmol/L (22-30); Creatinine 1 0.66 mg/dL (0.52-1.04); EST GLOMERULAR FILTRATION RATE > 60.0 ML/MIN; Glucose 217 mg/dL (74-106); Potassium 3.8 mmol/L (3.5-5.1); SGOT/AST 20 U/L (14-36); SGPT/ALT 20 U/L (0-35); SODIUM 137 mmol/L (137-145); Total Protein 6.7 g/dL (6.3-8.2)
--- NOTE | 2022-07-22 07:38 | XRAY ---
Indication: COPD. Comparison: July 21, 2022 Portable apical lordotic chest less inflated with stable bilateral perihilar suture material and calcified nodes. Heart not enlarged again with left pacemaker. No new/acute abnormalities.
[2022-07-22] MEDS: Advair Hfa 230/21 Mcg COMMON CANISTER IH SCH ×2 (07:42→19:35)
[2022-07-22] MEDS: Pepcid 20 MG PO SCH ×2 (08:29→21:41)
[2022-07-22] MEDS: PHENERGAN 25 MG PO PRN (08:29)
[2022-07-22] MEDS: Sodium Chloride 0.9% 1000 ML 1,000 ML IV SCH (09:20)
[2022-07-22] MEDS ORDERED: ROCEPHIN 1 Gm-D5w 50 ml Bag** 1 G/50 ML IVPB IV SCH (10:00)
[2022-07-22] MEDS ORDERED: LEVOFLOXACIN 750MG/150ML D5W 750 MG/150 ML BAG IV SCH (10:00)
[2022-07-22] MEDS: HUMALOG SQ PRN ×2 (11:54→21:43)
--- NOTE | 2022-07-22 14:03 | PCM.HP ---
History of Present Illness - Chief Complaint Chief Complaint: COPD Exacerbation History of Present Illness: is a 71 year old female pt of [facility] with hx lung Ca (s/p RUL lobectomy and LLL wedge resection), COPD, seasonal allergies, frequent PNA, DMII, renal insufficiency, and hx appy/choly/herniorrhaphy/bladder/ortho/lung surgeries who was admitted through ER with COPD exacerbation and UTI. CXR non acute. WBC 6.3 (6.6 at admission). She had 2d of productive cough (green/brown sputum) with increased SOB. She had an episode of hemoptysis which scared her and she came to the hospital. She's also had sore throat, MORA, and increased cough since coming to the hospital. No fever at any time. Tolerating po. - Review of Systems Ears, Nose, & Throat: Sinus Drainage, Throat Pain Respiratory: Cough, Short Of Breath Skin: Other ("face on fire" with steroids) Neurological: Headache All Other Systems: Reviewed and Negative Medications & Allergies Home Medications: Home Medication List Zolpidem Tartrate [Ambien] 10 mg PO HSPRN PRN 08/16/15 [History Confirmed 07/21/22] Rosuvastatin Calcium 5 mg PO QHS 05/29/21 [History Confirmed 07/21/22] Azelastine HCl 1 spray INTRANASAL HS 09/05/21 [History Confirmed 07/21/22] Budesonide/Glycopyr/Formoterol [Breztri Aerosphere Inhaler] 2 puffs IH BID 08/11 09/30 [History Confirmed 07/21/22] Amiodarone HCl 100 mg PO QHS 07/21/22 [History Confirmed 07/21/22] Montelukast Sodium 10 mg [Singulair 10 MG] 10 mg PO QHS 07/21/22 [History Confirmed 07/21/22] PARoxetine HCL [Paxil] 10 mg PO HS 07/21/22 [History Confirmed 07/21/22] Valsartan 40 mg PO QHS 07/21/22 [History Confirmed 07/21/22] Allergies/Adverse Reactions: Allergies Allergy/AdvReac Type Severity Reaction Status Date / Time clarithromycin [From Biaxin] Allergy Severe Hives Verified 07/21/22 08:12 Coconut Allergy Severe Difficulty Verified 07/21/22 08:12 Breathing green dye *RETIRED-07/03/12 Allergy Mild Swelling Verified 07/21/22 08:12 [Green Dye] red dye [Red Dye] Allergy Mild Swelling Verified 07/21/22 08:12 adhesive Allergy Rash Verified 07/21/22 08:12 cholestyramine Allergy Verified 07/21/22 08:12 iodine Allergy Wheezing Verified 07/21/22 08:12 latex Allergy Rash Verified 07/21/22 08:12 nitrofurantoin Allergy Verified 07/21/22 08:12 [From Macrobid] levofloxacin [From Levaquin] AdvReac Mild Joint Aches Verified 07/21/22 08:12 - Past Medical History Past Medical History: Yes Neurological History: No Pertinent History ENT History: Cataracts Cardiac History: Arrhythmia, Other Respiratory History: COPD, Other Endocrine Medical History: Diabetes Type II, Other Musculoskelatal History: Osteoarthritis GI Medical History: Diverticulitis, Gallbladder Disease, Pancreatitis History: No Pertinent History Pyscho-Social History: Depression Reproductive Disorders: No Pertinent History Comment: bruised liver, kidney disease in the past, seasonal allergies, lung ca - Past Surgical History Past Surgical History: Yes Neuro Surgical History: No Pertinent History Cardiac History: Pacemaker Respiratory Surgery: Lobectomy GI Surgical History: Appendectomy, Cholecystectomy, Hernia Repair Genitourinary Surgical Hx: No Pertinent History Musculskeletal Surgical Hx: No Pertinent History, Joint Replacement, Orthopedic Surgery Female Surgical History: Hysterectomy, Other Other Surgical History: tonsilectomy, carpal tunnel, trigger finger X3, BLADDER SLING, colorectal, SI fusion, left wedge resection to lungs July 16, 2020, [facility]ER 2022 - Social History Smoking Status: Former smoker How long have you smoked: 20 years Exposure to second hand smoke: No Alcohol: None Drug Use: none - Physical Exam Vital Signs: Vital Signs - 24 hr Temp Pulse Resp BP Pulse Ox 07/22/22 11:50 97.9 F 78 16 121/56 95 07/22/22 10:53 78 18 96 07/22/22 10:42 96 07/22/22 07:55 98.2 F 75 16 137/65 94 L 07/22/22 07:37 74 18 95 07/22/22 03:58 97.3 F 69 18 133/61 93 L 07/22/22 03:24 66 16 93 L 07/22/22 00:00 97.7 F 64 16 121/58 95 07/21/22 23:19 64 16 95 07/21/22 20:00 98.4 F 76 18 130/61 95 07/21/22 19:31 75 18 96 07/21/22 16:00 97.2 F 75 17 142/77 94 L 07/21/22 14:15 65 18 97 General Appearance: no apparent distress, other (coughs several times during i nterview) Neurologic Exam: alert, cooperative Eye Exam: eyes nml inspection Ears, Nose, Throat Exam: pharynx normal, moist mucous membranes Neck Exam: normal inspection, non-tender, No lymphadenopathy, No subcutaneous emphysema, No thyromegaly Respiratory Exam: diminished breath sounds (good air exchange), wheezing (scattered, faint), No crackles/rales, No rhonchi Cardiovascular Exam: regular rate/rhythm, normal heart sounds, No murmur Gastrointestinal/Abdomen Exam: soft, normal bowel sounds, No tenderness, No distention, No mass, No guarding, No rebound Back Exam: normal inspection, No rash Extremity Exam: normal inspection, No pedal edema, No swelling Skin Exam: normal color, warm, dry, No rash Results - Labs Lab/Micro Results: Lab Results-Last 24 Hours 07/21/22 07/21/22 07/21/22 Range/Units 16:10 16:47 20:31 WBC (4.0-10.5) x10^3/uL RBC (4.1-5.4) x10^6/uL Hgb (12.0-16.0) g/dL Hct (35-47) % MCV (78-100) fL MCH (26-32) pg MCHC (32-36) g/dL RDW (11.5-14.0) % Plt Count (150-450) x10^3/uL MPV (7.5-11.0) fL Sodium (137-145) mmol/L Potassium (3.5-5.1) mmol/L Chloride (98-107) mmol/L Carbon Dioxide (22-30) mmol/L Anion Gap (5-15) MEQ/L BUN (7-17) mg/dL Creatinine (0.52-1.04) mg/dL Estimated GFR ML/MIN Glucose (74-106) mg/dL POC Glucometer 253 H 232 H (74 to 106) mg/dL Calcium (8.4-10.2) mg/dL Magnesium (1.6-2.3) mg/dL Total Bilirubin (0.2-1.3) mg/dL AST (14-36) U/L ALT (0-35) U/L Alkaline Phosphatase (38-126) U/L Troponin I < 0.012 (0.000-0.034) ng/mL Serum Total Protein (6.3-8.2) g/dL Albumin (3.5-5.0) g/dL 07/22/22 07/22/22 07/22/22 Range/Units 05:24 05:24 07:42 WBC 6.3 (4.0-10.5) x10^3/uL RBC 3.90 L (4.1-5.4) x10^6/uL Hgb 11.5 L (12.0-16.0) g/dL Hct 35.8 (35-47) % MCV 91.8 (78-100) fL MCH 29.5 (26-32) pg MCHC 32.1 (32-36) g/dL RDW 15.1 H (11.5-14.0) % Plt Count 123 L (150-450) x10^3/uL MPV 11.7 H (7.5-11.0) fL Sodium 137 (137-145) mmol/L Potassium 3.8 (3.5-5.1) mmol/L Chloride 103 (98-107) mmol/L Carbon Dioxide 24 (22-30) mmol/L Anion Gap 13.2 (5-15) MEQ/L BUN 15 (7-17) mg/dL Creatinine 0.66 (0.52-1.04) mg/dL Estimated GFR > 60.0 ML/MIN Glucose 217 H (74-106) mg/dL POC Glucometer 217 H (74 to 106) mg/dL Calcium 8.4 (8.4-10.2) mg/dL Magnesium 2.0 (1.6-2.3) mg/dL Total Bilirubin 0.50 (0.2-1.3) mg/dL AST 20 (14-36) U/L ALT 20 (0-35) U/L Alkaline Phosphatase 87 (38-126) U/L Troponin I (0.000-0.034) ng/mL Serum Total Protein 6.7 (6.3-8.2) g/dL Albumin 3.8 (3.5-5.0) g/dL 07/22/22 Range/Units 11:45 WBC (4.0-10.5) x10^3/uL RBC (4.1-5.4) x10^6/uL Hgb (12.0-16.0) g/dL Hct (35-47) % MCV (78-100) fL MCH (26-32) pg MCHC (32-36) g/dL RDW (11.5-14.0) % Plt Count (150-450) x10^3/uL MPV (7.5-11.0) fL Sodium (137-145) mmol/L Potassium (3.5-5.1) mmol/L Chloride (98-107) mmol/L Carbon Dioxide (22-30) mmol/L Anion Gap (5-15) MEQ/L BUN (7-17) mg/dL Creatinine (0.52-1.04) mg/dL Estimated GFR ML/MIN Glucose (74-106) mg/dL POC Glucometer 225 H (74 to 106) mg/dL Calcium (8.4-10.2) mg/dL Magnesium (1.6-2.3) mg/dL Total Bilirubin (0.2-1.3) mg/dL AST (14-36) U/L ALT (0-35) U/L Alkaline Phosphatase (38-126) U/L Troponin I (0.000-0.034) ng/mL Serum Total Protein (6.3-8.2) g/dL Albumin (3.5-5.0) g/dL Microbiology 07/21/22 09:06 Sputum Culture - Preliminary Sputum - Expectorant GRAM NEGATIVE ID AND SENSITIVITY PENDING Accuchecks Date 07/22/22 Date 07/22/22 Date 07/21/22 Date 07/21/22 Time 11:51 Time 07:58 Time 20:30 - Radiology Impressions Radiology Exams & Impressions: Radiology Procedures Category Date Time Status CHEST 1 VIEW (PORTABLE) Routine Exams 07/22/22 06:00 Completed CHEST 1 VIEW (PORTABLE) Stat Exams 07/21/22 08:15 Completed Assessment/Plan (1) COPD exacerbation Current Visit: Yes Status: Acute Assessment & Plan: Will resume rocephin and add doxycycline (avoiding levaquin with her amiodarone). Day #2 rocephin and 1 of doxycycline. Tristan morseles for cough. Code(s): J44.1 - CHRONIC OBSTRUCTIVE PULMONARY DISEASE W (ACUTE) EXACERBATION (2) Type 2 diabetes mellitus Current Visit: No Status: Chronic Qualifiers: Diabetes mellitus supervisor intermediates insulin use: without supervisor intermediates use Diabetes mellitus complication status: without complication Qualified Code(s): E11.9 - Type 2 diabetes mellitus without complications (3) UTI (urinary tract infection) Current Visit: No Status: Acute Qualifiers: Urinary tract infection type: acute cystitis Hematuria presence: without hematuria Qualified Code(s): N30.00 - Acute cystitis without hematuria Assessment & Plan: G neg, sensitivity pending. Code(s): N39.0 - URINARY TRACT INFECTION, SITE NOT SPECIFIED (4) Pharyngitis Current Visit: Yes Status: Acute Qualifiers: Pharyngitis/tonsillitis etiology: unspecified etiology Qualified Code(s): J02.9 - Acute pharyngitis, unspecified Assessment & Plan: I think just due to cough. exam is benign. Code(s): J02.9 - ACUTE PHARYNGITIS, UNSPECIFIED (5) dvt prophylaxis Current Visit: Yes Status: Acute Assessment & Plan: She has a remote hx PUD; will do mechanical prophylaxis. Discussed with pt.
[2022-07-22] MEDS: VIBRAMYCIN 100 MG*** 100 MG in Dextrose 5%/Water IV Soln. 100ML PLUS BAG 100 ML IV SCH ×2 (14:24→22:47)
[2022-07-22] MEDS: ROCEPHIN 1 Gm-D5w 50 ml Bag** 1 G/50 ML IVPB IV SCH (14:24)
[2022-07-22] MEDS: Tessalon Perles 100 MG PO PRN ×2 (15:22→20:38)
[2022-07-22] MEDS: DIOVAN 80 MG PO SCH (21:38)
[2022-07-22] MEDS: Paxil 20 MG PO SCH (21:39)
[2022-07-22] MEDS: Cordarone 200 MG PO SCH (21:39)
[2022-07-22] MEDS: Singulair 10 MG PO SCH (21:40)
[2022-07-22] MEDS: Zocor 10MG PO SCH (21:41)
[2022-07-22] MEDS: solu-MEDROL 60 MG, Sterile H2O 10 ml 2 ML IV SCH ×2 (21:49)
[2022-07-22] MEDS ORDERED: solu-MEDROL 60 MG, Sterile H2O 10 ml 1 ML IV SCH ×2 (22:00)
[2022-07-22] MEDS: TYLENOL EXTRA STRENGTH 500 MG PO PRN (22:47)
[2022-07-22] MEDS: Ambien 10 MG PO PRN (23:04)
[2022-07-23] MEDS: Tessalon Perles 100 MG PO PRN ×2 (00:55→14:01)
[2022-07-23] MEDS: Hydromorphone 1 mg/ml Injection IV PRN ×6 (01:12→23:32)
[2022-07-23] MEDS: HYDROCODONE-ACETAMIN 2.5-108/5 ML SOLUTION PO PRN ×2 (03:26→21:46)
[2022-07-23] MEDS: solu-MEDROL 60 MG, Sterile H2O 10 ml 2 ML IV SCH ×2 (06:04)
[2022-07-23] MEDS: Sodium Chloride 0.9% 1000 ML 1,000 ML IV SCH ×2 (07:32→09:00)
[2022-07-23] MEDS: DUONEB 0.5-3 MG/3 ml Neb IH SCH ×6 (07:39→22:45)
[2022-07-23 08:06] LABS: Absolute Neutrophil Ct (ANC) 9.11 x10^3/uL (1.4-6.9); BASOPHIL % 0.1 % (0.0-0.4); Basophil (Absolute #) 0.01 x10^3/uL (0-0.4); Eosinophil (Absolute #) 0 x10^3/uL (0-0.5); Hematocrit 34.5 % (35-47); Hemoglobin 11.2 g/dL (12.0-16.0); IMMATURE GRAN # 0.07 x10^3u/L (0.00-0.03); IMMATURE GRAN % 0.7 % (0.00-0.4); Lymphocyte (Absolute #) 0.37 x10^3/uL (1.0-4.6); Lymphocytes % 3.8 % (24.0-44.0); Mean Corpuscular Hemoglobin 29.6 pg (26-32); Mean Corpuscular Hgb Concent. 32.5 g/dL (32-36); Mean Platelet Volume 11.2 fL (7.5-11.0); Monocyte (Absolute #) 0.28 x10^3/uL (0.0-1.3); Monocytes % 2.8 % (0.0-12.0); Neutrophil % 92.6 % (36.0-66.0); Platelet Count 168 x10^3/uL (150-450); Red Blood Count 3.79 x10^6/uL (4.1-5.4); Red Cell Distribution Width 15.9 % (11.5-14.0); White Blood Count 9.8 x10^3/uL (4.0-10.5)
[2022-07-23] MEDS: HUMALOG SQ PRN ×3 (08:43→21:25)
--- NOTE | 2022-07-23 09:38 | PCM.NOTE ---
Date and Time: 07/23/22933 Subjective Assessment: Overnight her cough was so bad it was hurting her abdominal muscles and her head - we started her on dilaudid and she is feeling much better today. She was coughing up some mucous that was blood streaked, less blood than when she was admitted. Her sputum cx came back Enterobacter cloacae susceptible to rocephin. - Review of Systems Constitutional: No Fever Respiratory: Cough, Short Of Breath Objective Exam General Appearance: no apparent distress, obese Neurologic Exam: alert, 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, cooperative Skin Exam: normal color, warm, dry, No rash Eye Exam: eyes nml inspection Respiratory Exam: diminished breath sounds (fair to good air exchange), wheezing (throughout), No crackles/rales, No rhonchi Cardiovascular Exam: regular rate/rhythm, normal heart sounds, No murmur Gastrointestinal/Abdomen Exam: soft, normal bowel sounds, No tenderness, No distention, No mass, No guarding, No rebound Extremity Exam: normal inspection, No pedal edema, No swelling OBJECTIVE DATA Vital Signs: Vital Signs - 24 hr Temp Pulse Resp BP Pulse Ox 07/23/22 06:52 97.6 F 59 L 16 163/67 94 L 07/23/22 04:00 97.9 F 74 20 148/67 94 L 07/22/22 23:39 97.6 F 65 19 165/70 96 07/22/22 23:33 75 18 96 07/22/22 19:55 98.5 F 77 18 130/63 95 07/22/22 19:35 74 16 96 07/22/22 16:00 97.8 F 86 16 162/72 96 07/22/22 15:35 72 18 96 07/22/22 11:50 97.9 F 78 16 121/56 95 07/22/22 10:53 78 18 96 07/22/22 10:42 96 Pain Assessment - Last Documented Pain Intensity 3 Pain Scale Used 0-10 Pain Scale Intake and Output: Intake & Output 07/20/22 07/21/22 07/22/22 07/23/22 11:59 11:59 11:59 11:59 Intake Total 3218 2400 Balance 3218 2400 Weight 108.862 kg 113 kg 113.1 kg Lab Results: Lab Results-Last 24 Hours 07/22/22 07/22/22 07/22/22 Range/Units 11:45 16:14 20:29 WBC (4.0-10.5) x10^3/uL RBC (4.1-5.4) x10^6/uL Hgb (12.0-16.0) g/dL Hct (35-47) % MCV (78-100) fL MCH (26-32) pg MCHC (32-36) g/dL RDW (11.5-14.0) % Plt Count (150-450) x10^3/uL MPV (7.5-11.0) fL Gran % (36.0-66.0) % Immature Gran % (Auto) (0.00-0.4) % Nucleat RBC Rel Count (0.00-0.1) % Eos # (Auto) (0-0.5) x10^3/uL Immature Gran # (Auto) (0.00-0.03) x10^3u/L Absolute Lymphs (auto) (1.0-4.6) x10^3/uL Absolute Monos (auto) (0.0-1.3) x10^3/uL Absolute Nucleated RBC (0.00-0.01) x10^3u/L Lymphocytes % (24.0-44.0) % Monocytes % (0.0-12.0) % Eosinophils % (0.00-5.0) % Basophils % (0.0-0.4) % Absolute Granulocytes (1.4-6.9) x10^3/uL Basophils # (0-0.4) x10^3/uL POC Glucometer 225 H 201 H 225 H (74 to 106) mg/dL 07/23/22 07/23/22 Range/Units 06:49 07:58 WBC 9.8 (4.0-10.5) x10^3/uL RBC 3.79 L (4.1-5.4) x10^6/uL Hgb 11.2 L (12.0-16.0) g/dL Hct 34.5 L (35-47) % MCV 91.0 (78-100) fL MCH 29.6 (26-32) pg MCHC 32.5 (32-36) g/dL RDW 15.9 H (11.5-14.0) % Plt Count 168 D (150-450) x10^3/uL MPV 11.2 H (7.5-11.0) fL Gran % 92.6 H (36.0-66.0) % Immature Gran % (Auto) 0.7 H (0.00-0.4) % Nucleat RBC Rel Count 0.0 (0.00-0.1) % Eos # (Auto) 0 (0-0.5) x10^3/uL Immature Gran # (Auto) 0.07 H (0.00-0.03) x10^3u/L Absolute Lymphs (auto) 0.37 L (1.0-4.6) x10^3/uL Absolute Monos (auto) 0.28 (0.0-1.3) x10^3/uL Absolute Nucleated RBC 0.00 (0.00-0.01) x10^3u/L Lymphocytes % 3.8 L (24.0-44.0) % Monocytes % 2.8 (0.0-12.0) % Eosinophils % 0.0 (0.00-5.0) % Basophils % 0.1 (0.0-0.4) % Absolute Granulocytes 9.11 H (1.4-6.9) x10^3/uL Basophils # 0.01 (0-0.4) x10^3/uL POC Glucometer 208 H (74 to 106) mg/dL Radiology Exams: Radiology Procedures Category Date Time Status CHEST 1 VIEW (PORTABLE) Routine Exams 07/22/22 06:00 Completed Assessment/Plan (1) COPD exacerbation Current Visit: Yes Status: Acute Assessment & Plan: I think her coughing worsened when the steroids were decreased; she is wheezing more today, so increase solumedrol up to 125mg IV q6h. Hoping she will feel good enough tomorrow to be discharged to home. Sputum culture results indicate doxycycline is not necessary so it has been discontinued. Code(s): J44.1 - CHRONIC OBSTRUCTIVE PULMONARY DISEASE W (ACUTE) EXACERBATION (2) Type 2 diabetes mellitus Current Visit: No Status: Chronic Qualifiers: Diabetes mellitus assistant terminal manager insulin use: without assistant terminal manager use Diabetes mellitus complication status: without complication Qualified Code(s): E11.9 - Type 2 diabetes mellitus without complications (3) UTI (urinary tract infection) Current Visit: No Status: Acute Qualifiers: Urinary tract infection type: acute cystitis Hematuria presence: without hematuria Qualified Code(s): N30.00 - Acute cystitis without hematuria Code(s): N39.0 - URINARY TRACT INFECTION, SITE NOT SPECIFIED (4) Pharyngitis Current Visit: Yes Status: Acute Qualifiers: Pharyngitis/tonsillitis etiology: unspecified etiology Qualified Code(s): J02.9 - Acute pharyngitis, unspecified Code(s): J02.9 - ACUTE PHARYNGITIS, UNSPECIFIED (5) dvt prophylaxis Current Visit: Yes Status: Acute
[2022-07-23] MEDS: ROCEPHIN 1 Gm-D5w 50 ml Bag** 1 G/50 ML IVPB IV SCH (10:01)
[2022-07-23] MEDS: solu-MEDROL 125 MG, Sterile H2O 10 ml 2 ML IV SCH ×6 (10:01→23:32)
[2022-07-23] MEDS: Pepcid 20 MG PO SCH ×2 (10:02→21:24)
[2022-07-23] MEDS: Advair Hfa 230/21 Mcg COMMON CANISTER IH SCH ×2 (11:17→18:35)
[2022-07-23 11:34] LABS: ANION GAP 14.4 MEQ/L (5-15); BLOOD UREA NITROGEN 21 mg/dL (7-17); CHLORIDE 104 mmol/L (98-107); Calcium 8.6 mg/dL (8.4-10.2); Carbon Dioxide 25 mmol/L (22-30); Creatinine 1 0.76 mg/dL (0.52-1.04); EST GLOMERULAR FILTRATION RATE > 60.0 ML/MIN; Glucose 201 mg/dL (74-106); Potassium 3.8 mmol/L (3.5-5.1); SODIUM 140 mmol/L (137-145)
[2022-07-23 11:59] LABS: Slide Review 1 YES
[2022-07-23] MEDS: PHENERGAN 25 MG PO PRN (14:01)
[2022-07-23] MEDS: TYLENOL EXTRA STRENGTH 500 MG PO PRN (19:55)
[2022-07-23] MEDS: Cordarone 200 MG PO SCH (21:22)
[2022-07-23] MEDS: DIOVAN 80 MG PO SCH (21:23)
[2022-07-23] MEDS: Paxil 20 MG PO SCH (21:24)
[2022-07-23] MEDS: Singulair 10 MG PO SCH (21:25)
[2022-07-23] MEDS: Zocor 10MG PO SCH (21:25)
[2022-07-23] MEDS: Ambien 10 MG PO PRN (23:32)
[2022-07-24] MEDS: Sodium Chloride 0.9% 1000 ML 1,000 ML IV SCH (01:50)
[2022-07-24] MEDS: DUONEB 0.5-3 MG/3 ml Neb IH SCH ×6 (02:45→22:52)
[2022-07-24 04:49] LABS: Absolute Neutrophil Ct (ANC) 6.32 x10^3/uL (1.4-6.9); Basophil (Absolute #) 0 x10^3/uL (0-0.4); Eosinophil (Absolute #) 0 x10^3/uL (0-0.5); Hematocrit 34.2 % (35-47); Hemoglobin 10.8 g/dL (12.0-16.0); IMMATURE GRAN # 0.08 x10^3u/L (0.00-0.03); IMMATURE GRAN % 1.2 % (0.00-0.4); Lymphocyte (Absolute #) 0.32 x10^3/uL (1.0-4.6); Lymphocytes % 4.6 % (24.0-44.0); Mean Cell Volume 91.7 fL (78-100); Mean Corpuscular Hgb Concent. 31.6 g/dL (32-36); Mean Platelet Volume 11.6 fL (7.5-11.0); Monocytes % 2.9 % (0.0-12.0); Neutrophil % 91.3 % (36.0-66.0); Platelet Count 117 x10^3/uL (150-450); Red Blood Count 3.73 x10^6/uL (4.1-5.4); Red Cell Distribution Width 15.8 % (11.5-14.0); White Blood Count 6.9 x10^3/uL (4.0-10.5)
[2022-07-24 05:02] LABS: ANION GAP 10.6 MEQ/L (5-15); BLOOD UREA NITROGEN 27 mg/dL (7-17); CHLORIDE 101 mmol/L (98-107); Calcium 8.4 mg/dL (8.4-10.2); Carbon Dioxide 27 mmol/L (22-30); Creatinine 1 0.81 mg/dL (0.52-1.04); EST GLOMERULAR FILTRATION RATE > 60.0 ML/MIN; Glucose 249 mg/dL (74-106); Potassium 3.6 mmol/L (3.5-5.1); SODIUM 135 mmol/L (137-145)
[2022-07-24] MEDS: solu-MEDROL 125 MG, Sterile H2O 10 ml 2 ML IV SCH ×8 (06:18→23:00)
[2022-07-24] MEDS: Advair Hfa 230/21 Mcg COMMON CANISTER IH SCH ×2 (07:39→18:24)
[2022-07-24] MEDS: HUMALOG SQ PRN ×3 (07:42→21:02)
[2022-07-24] MEDS: Hydromorphone 1 mg/ml Injection IV PRN ×4 (07:44→23:01)
[2022-07-24 08:31] LABS: Slide Review 1 YES
--- NOTE | 2022-07-24 09:02 | PCM.NOTE ---
Date and Time: 07/24/22900 Subjective Assessment: still feels poorly, cough continues to produce some blood tinged sputum. Objective Exam General Appearance: no apparent distress, obese Respiratory Exam: accessory muscle use, wheezing Cardiovascular Exam: regular rate/rhythm, normal heart sounds Gastrointestinal/Abdomen Exam: soft, No tenderness, No mass Extremity Exam: normal inspection, normal range of motion OBJECTIVE DATA Vital Signs: Vital Signs - 24 hr Temp Pulse Resp BP Pulse Ox 07/24/22 07:40 72 18 94 L 07/24/22 06:32 97.5 F 66 16 145/65 99 07/24/22 03:54 65 18 97 07/24/22 02:45 66 18 96 07/23/22 23:44 97.1 F 60 18 150/72 94 L 07/23/22 22:45 60 18 94 L 07/23/22 19:43 97.8 F 64 18 138/60 95 07/23/22 18:15 69 18 97 07/23/22 16:00 97.6 F 62 16 147/67 96 07/23/22 11:56 97.6 F 60 16 165/70 96 07/23/22 11:04 66 18 98 Pain Assessment - Last Documented Pain Intensity 0 Pain Scale Used 0-10 Pain Scale Intake and Output: Intake & Output 07/21/22 07/22/22 07/23/22 07/24/22 11:59 11:59 11:59 11:59 Intake Total 3218 2880 1440 Balance 3218 2880 1440 Weight 108.862 kg 113 kg 113.1 kg 113.1 kg Lab Results: Lab Results-Last 24 Hours 07/23/22 07/23/22 07/23/22 Range/Units 07:58 07:58 10:59 WBC (4.0-10.5) x10^3/uL RBC (4.1-5.4) x10^6/uL Hgb (12.0-16.0) g/dL Hct (35-47) % MCV (78-100) fL MCH (26-32) pg MCHC (32-36) g/dL RDW (11.5-14.0) % Plt Count (150-450) x10^3/uL MPV (7.5-11.0) fL Gran % (36.0-66.0) % Immature Gran % (Auto) (0.00-0.4) % Nucleat RBC Rel Count (0.00-0.1) % Eos # (Auto) (0-0.5) x10^3/uL Immature Gran # (Auto) (0.00-0.03) x10^3u/L Absolute Lymphs (auto) (1.0-4.6) x10^3/uL Absolute Monos (auto) (0.0-1.3) x10^3/uL Absolute Nucleated RBC (0.00-0.01) x10^3u/L Lymphocytes % (24.0-44.0) % Monocytes % (0.0-12.0) % Eosinophils % (0.00-5.0) % Basophils % (0.0-0.4) % Absolute Granulocytes (1.4-6.9) x10^3/uL Basophils # (0-0.4) x10^3/uL Sodium 140 (137-145) mmol/L Potassium 3.8 (3.5-5.1) mmol/L Chloride 104 (98-107) mmol/L Carbon Dioxide 25 (22-30) mmol/L Anion Gap 14.4 (5-15) MEQ/L BUN 21 H (7-17) mg/dL Creatinine 0.76 (0.52-1.04) mg/dL Estimated GFR > 60.0 ML/MIN Glucose 201 H (74-106) mg/dL POC Glucometer 175 H (74 to 106) mg/dL Calcium 8.6 (8.4-10.2) mg/dL Slides for Path Review YES 07/23/22 07/23/22 07/24/22 Range/Units 16:24 20:40 04:22 WBC 6.9 (4.0-10.5) x10^3/uL RBC 3.73 L (4.1-5.4) x10^6/uL Hgb 10.8 L (12.0-16.0) g/dL Hct 34.2 L (35-47) % MCV 91.7 (78-100) fL MCH 29.0 (26-32) pg MCHC 31.6 L (32-36) g/dL RDW 15.8 H (11.5-14.0) % Plt Count 117 L (150-450) x10^3/uL MPV 11.6 H (7.5-11.0) fL Gran % 91.3 H (36.0-66.0) % Immature Gran % (Auto) 1.2 H (0.00-0.4) % Nucleat RBC Rel Count 0.0 (0.00-0.1) % Eos # (Auto) 0 (0-0.5) x10^3/uL Immature Gran # (Auto) 0.08 H (0.00-0.03) x10^3u/L Absolute Lymphs (auto) 0.32 L (1.0-4.6) x10^3/uL Absolute Monos (auto) 0.20 (0.0-1.3) x10^3/uL Absolute Nucleated RBC 0.00 (0.00-0.01) x10^3u/L Lymphocytes % 4.6 L (24.0-44.0) % Monocytes % 2.9 (0.0-12.0) % Eosinophils % 0.0 (0.00-5.0) % Basophils % 0.0 (0.0-0.4) % Absolute Granulocytes 6.32 (1.4-6.9) x10^3/uL Basophils # 0 (0-0.4) x10^3/uL Sodium (137-145) mmol/L Potassium (3.5-5.1) mmol/L Chloride (98-107) mmol/L Carbon Dioxide (22-30) mmol/L Anion Gap (5-15) MEQ/L BUN (7-17) mg/dL Creatinine (0.52-1.04) mg/dL Estimated GFR ML/MIN Glucose (74-106) mg/dL POC Glucometer 250 H 225 H (74 to 106) mg/dL Calcium (8.4-10.2) mg/dL Slides for Path Review YES 07/24/22 07/24/22 Range/Units 04:22 06:22 WBC (4.0-10.5) x10^3/uL RBC (4.1-5.4) x10^6/uL Hgb (12.0-16.0) g/dL Hct (35-47) % MCV (78-100) fL MCH (26-32) pg MCHC (32-36) g/dL RDW (11.5-14.0) % Plt Count (150-450) x10^3/uL MPV (7.5-11.0) fL Gran % (36.0-66.0) % Immature Gran % (Auto) (0.00-0.4) % Nucleat RBC Rel Count (0.00-0.1) % Eos # (Auto) (0-0.5) x10^3/uL Immature Gran # (Auto) (0.00-0.03) x10^3u/L Absolute Lymphs (auto) (1.0-4.6) x10^3/uL Absolute Monos (auto) (0.0-1.3) x10^3/uL Absolute Nucleated RBC (0.00-0.01) x10^3u/L Lymphocytes % (24.0-44.0) % Monocytes % (0.0-12.0) % Eosinophils % (0.00-5.0) % Basophils % (0.0-0.4) % Absolute Granulocytes (1.4-6.9) x10^3/uL Basophils # (0-0.4) x10^3/uL Sodium 135 L (137-145) mmol/L Potassium 3.6 (3.5-5.1) mmol/L Chloride 101 (98-107) mmol/L Carbon Dioxide 27 (22-30) mmol/L Anion Gap 10.6 (5-15) MEQ/L BUN 27 H (7-17) mg/dL Creatinine 0.81 (0.52-1.04) mg/dL Estimated GFR > 60.0 ML/MIN Glucose 249 H (74-106) mg/dL POC Glucometer 255 H (74 to 106) mg/dL Calcium 8.4 (8.4-10.2) mg/dL Slides for Path Review Assessment/Plan (1) COPD exacerbation Current Visit: Yes Status: Acute Assessment & Plan: continue rocephin, enterobacter on sputum culture sens. continue IV solu medrol 125mg q6hrs, nebs. will follow Code(s): J44.1 - CHRONIC OBSTRUCTIVE PULMONARY DISEASE W (ACUTE) EXACERBATION (2) Pharyngitis Current Visit: Yes Status: Acute Qualifiers: Pharyngitis/tonsillitis etiology: unspecified etiology Qualified Code(s): J02.9 - Acute pharyngitis, unspecified Code(s): J02.9 - ACUTE PHARYNGITIS, UNSPECIFIED
[2022-07-24] MEDS: Pepcid 20 MG PO SCH ×2 (09:08→21:02)
[2022-07-24] MEDS: ROCEPHIN 1 Gm-D5w 50 ml Bag** 1 G/50 ML IVPB IV SCH (09:08)
[2022-07-24] MEDS: PHENERGAN 25 MG PO PRN ×2 (09:10→19:34)
[2022-07-24] MEDS: HYDROCODONE-ACETAMIN 2.5-108/5 ML SOLUTION PO PRN ×2 (09:10→13:17)
[2022-07-24] MEDS ORDERED: CEPACOL SORE THROAT LOZENGE PO PRN (09:22)
[2022-07-24] MEDS ORDERED: solu-MEDROL ONE ×2 (11:37→16:20)
[2022-07-24] MEDS: TYLENOL EXTRA STRENGTH 500 MG PO PRN ×2 (14:01→19:34)
[2022-07-24] MEDS: DIOVAN 80 MG PO SCH (21:01)
[2022-07-24] MEDS: Paxil 20 MG PO SCH (21:02)
[2022-07-24] MEDS: Zocor 10MG PO SCH (21:02)
[2022-07-24] MEDS: Cordarone 200 MG PO SCH (21:02)
[2022-07-24] MEDS: Singulair 10 MG PO SCH (21:02)
[2022-07-24] MEDS: Tessalon Perles 100 MG PO PRN (22:23)
[2022-07-24] MEDS: Ambien 10 MG PO PRN (23:01)
[2022-07-25] MEDS: DUONEB 0.5-3 MG/3 ml Neb IH SCH ×6 (03:20→23:05)
[2022-07-25 04:53] LABS: BASOPHIL % 0.3 % (0.0-0.4); Basophil (Absolute #) 0.02 x10^3/uL (0-0.4); Eosinophil (Absolute #) 0 x10^3/uL (0-0.5); Hematocrit 34.4 % (35-47); Hemoglobin 11.2 g/dL (12.0-16.0); IMMATURE GRAN # 0.14 x10^3u/L (0.00-0.03); IMMATURE GRAN % 1.8 % (0.00-0.4); Lymphocyte (Absolute #) 0.41 x10^3/uL (1.0-4.6); Lymphocytes % 5.4 % (24.0-44.0); Mean Cell Volume 90.1 fL (78-100); Mean Corpuscular Hemoglobin 29.3 pg (26-32); Mean Corpuscular Hgb Concent. 32.6 g/dL (32-36); Mean Platelet Volume 11.3 fL (7.5-11.0); Monocyte (Absolute #) 0.29 x10^3/uL (0.0-1.3); Monocytes % 3.8 % (0.0-12.0); Neutrophil % 88.7 % (36.0-66.0); Platelet Count 151 x10^3/uL (150-450); Red Blood Count 3.82 x10^6/uL (4.1-5.4); Red Cell Distribution Width 15.9 % (11.5-14.0); White Blood Count 7.7 x10^3/uL (4.0-10.5)
[2022-07-25 05:21] LABS: ANION GAP 10.1 MEQ/L (5-15); BLOOD UREA NITROGEN 31 mg/dL (7-17); CHLORIDE 100 mmol/L (98-107); Calcium 8.1 mg/dL (8.4-10.2); Carbon Dioxide 29 mmol/L (22-30); Creatinine 1 0.86 mg/dL (0.52-1.04); EST GLOMERULAR FILTRATION RATE > 60.0 ML/MIN; Glucose 258 mg/dL (74-106); Potassium 3.7 mmol/L (3.5-5.1); SODIUM 135 mmol/L (137-145)
[2022-07-25 05:33] LABS: Slide Review 1 YES
[2022-07-25] MEDS: solu-MEDROL 125 MG, Sterile H2O 10 ml 2 ML IV SCH ×8 (06:10→23:18)
[2022-07-25] MEDS: Hydromorphone 1 mg/ml Injection IV PRN ×4 (06:11→23:19)
[2022-07-25] MEDS: Advair Hfa 230/21 Mcg COMMON CANISTER IH SCH ×2 (07:17→18:52)
[2022-07-25] MEDS: Pepcid 20 MG PO SCH ×2 (09:17→23:18)
[2022-07-25] MEDS: Acidophilus TABLET PO SCH ×3 (09:18→23:17)
[2022-07-25] MEDS: HUMALOG SQ PRN ×3 (09:19→23:19)
--- NOTE | 2022-07-25 09:59 | XRAY ---
Indication: COPD exacerbation. Lung cancer. Comparison: July 22, 2022 PA/lateral chest remains inflated and clear. Heart borderline enlarged again with left pacemaker, bilateral perihilar suture material, and hilar calcified nodes. No new/acute findings.
[2022-07-25] MEDS: Tessalon Perles 100 MG PO PRN ×2 (10:30→17:35)
[2022-07-25] MEDS: HYDROCODONE-ACETAMIN 2.5-108/5 ML SOLUTION PO PRN ×3 (10:30→21:47)
[2022-07-25] MEDS: THEOPHYLLINE ER 24HR PO SCH (10:31)
[2022-07-25] MEDS: ROCEPHIN 1 Gm-D5w 50 ml Bag** 1 G/50 ML IVPB IV SCH (10:32)
--- NOTE | 2022-07-25 12:40 | PCM.NOTE ---
Date and Time: 07/25/22 1231 Subjective Assessment: Pt seen by me at 08:45. She continues to have cough and wheezing. Had a coughing fit from 10-11 pm last night. - Review of Systems Constitutional: No Fever Respiratory: Cough, Short Of Breath Objective Exam General Appearance: mild distress (coughs intermittently throughout exam), obese Neurologic Exam: alert, cooperative Skin Exam: normal color, warm, dry, No rash Eye Exam: eyes nml inspection Ears, Nose, Throat Exam: pharynx normal, moist mucous membranes Neck Exam: normal inspection Respiratory Exam: diminished breath sounds (good air exchange), wheezing (scattered throughout), No rhonchi Cardiovascular Exam: regular rate/rhythm, normal heart sounds, No murmur Extremity Exam: normal inspection, No pedal edema, No swelling Back Exam: normal inspection, No rash OBJECTIVE DATA Vital Signs: Vital Signs - 24 hr Temp Pulse Resp BP Pulse Ox 07/25/22 11:20 67 16 94 L 07/25/22 11:11 97.7 F 62 17 161/72 95 07/25/22 07:17 69 14 92 L 07/25/22 07:05 97.1 F 67 18 155/74 96 07/25/22 04:00 96.9 F 68 22 129/59 96 07/25/22 03:20 67 18 93 L 07/24/22 23:42 97.0 F 94 H 20 133/80 97 07/24/22 22:52 72 22 97 07/24/22 19:48 97.0 F 82 18 127/60 96 07/24/22 18:14 90 18 95 07/24/22 16:00 96.2 F 64 18 129/68 95 Pain Assessment - Last Documented Pain Intensity 6 Pain Scale Used 0-10 Pain Scale Intake and Output: Intake & Output 07/23/22 07/24/22 07/25/22 07/26/22 11:59 11:59 11:59 11:59 Intake Total 2880 1800 2500 Balance 2880 1800 2500 Weight 113.1 kg 113.1 kg 113.4 kg Lab Results: Lab Results-Last 24 Hours 07/24/22 07/24/22 07/25/22 Range/Units 16:22 20:53 04:25 WBC 7.7 (4.0-10.5) x10^3/uL RBC 3.82 L (4.1-5.4) x10^6/uL Hgb 11.2 L (12.0-16.0) g/dL Hct 34.4 L (35-47) % MCV 90.1 (78-100) fL MCH 29.3 (26-32) pg MCHC 32.6 (32-36) g/dL RDW 15.9 H (11.5-14.0) % Plt Count 151 (150-450) x10^3/uL MPV 11.3 H (7.5-11.0) fL Gran % 88.7 H (36.0-66.0) % Immature Gran % (Auto) 1.8 H (0.00-0.4) % Nucleat RBC Rel Count 0.0 (0.00-0.1) % Eos # (Auto) 0 (0-0.5) x10^3/uL Immature Gran # (Auto) 0.14 H (0.00-0.03) x10^3u/L Absolute Lymphs (auto) 0.41 L (1.0-4.6) x10^3/uL Absolute Monos (auto) 0.29 (0.0-1.3) x10^3/uL Absolute Nucleated RBC 0.00 (0.00-0.01) x10^3u/L Lymphocytes % 5.4 L (24.0-44.0) % Monocytes % 3.8 (0.0-12.0) % Eosinophils % 0.0 (0.00-5.0) % Basophils % 0.3 (0.0-0.4) % Absolute Granulocytes 6.80 (1.4-6.9) x10^3/uL Basophils # 0.02 (0-0.4) x10^3/uL Sodium (137-145) mmol/L Potassium (3.5-5.1) mmol/L Chloride (98-107) mmol/L Carbon Dioxide (22-30) mmol/L Anion Gap (5-15) MEQ/L BUN (7-17) mg/dL Creatinine (0.52-1.04) mg/dL Estimated GFR ML/MIN Glucose (74-106) mg/dL POC Glucometer 200 H 281 H (74 to 106) mg/dL Calcium (8.4-10.2) mg/dL Slides for Path Review YES 07/25/22 07/25/22 07/25/22 Range/Units 04:25 07:03 11:01 WBC (4.0-10.5) x10^3/uL RBC (4.1-5.4) x10^6/uL Hgb (12.0-16.0) g/dL Hct (35-47) % MCV (78-100) fL MCH (26-32) pg MCHC (32-36) g/dL RDW (11.5-14.0) % Plt Count (150-450) x10^3/uL MPV (7.5-11.0) fL Gran % (36.0-66.0) % Immature Gran % (Auto) (0.00-0.4) % Nucleat RBC Rel Count (0.00-0.1) % Eos # (Auto) (0-0.5) x10^3/uL Immature Gran # (Auto) (0.00-0.03) x10^3u/L Absolute Lymphs (auto) (1.0-4.6) x10^3/uL Absolute Monos (auto) (0.0-1.3) x10^3/uL Absolute Nucleated RBC (0.00-0.01) x10^3u/L Lymphocytes % (24.0-44.0) % Monocytes % (0.0-12.0) % Eosinophils % (0.00-5.0) % Basophils % (0.0-0.4) % Absolute Granulocytes (1.4-6.9) x10^3/uL Basophils # (0-0.4) x10^3/uL Sodium 135 L (137-145) mmol/L Potassium 3.7 (3.5-5.1) mmol/L Chloride 100 (98-107) mmol/L Carbon Dioxide 29 (22-30) mmol/L Anion Gap 10.1 (5-15) MEQ/L BUN 31 H (7-17) mg/dL Creatinine 0.86 (0.52-1.04) mg/dL Estimated GFR > 60.0 ML/MIN Glucose 258 H (74-106) mg/dL POC Glucometer 244 H 219 H (74 to 106) mg/dL Calcium 8.1 L (8.4-10.2) mg/dL Slides for Path Review Radiology Exams: Radiology Procedures Category Date Time Status CHEST 2 VIEWS (PA AND LAT) Routine Exams 07/25/22 09:11 Completed Multi-Disciplinary Progress Notes: Multi-Disciplinary Progress Notes 07/25/22 10:22 Case Management Note by Senait Worthy S/W PATIENT. SHE CONTINUES TO DENY ANY NEW NEEDS AT TIME OF DC. SHE PLANS TO RETURN HOME TO HER PLOF AT TIME OF DC/ Initialized on 07/25/22 10:22 - END OF NOTE Assessment/Plan (1) COPD exacerbation Current Visit: Yes Status: Acute Assessment & Plan: Not on O2, but cough worsens every time the steroids are decreased. On 125mg IV q6h. Will add theophylline. Code(s): J44.1 - CHRONIC OBSTRUCTIVE PULMONARY DISEASE W (ACUTE) EXACERBATION (2) Type 2 diabetes mellitus Current Visit: No Status: Chronic Qualifiers: Diabetes mellitus long-term insulin use: without long-term use Diabetes mellitus complication status: without complication Qualified Code(s): E11.9 - Type 2 diabetes mellitus without complications (3) Pharyngitis Current Visit: Yes Status: Acute Qualifiers: Pharyngitis/tonsillitis etiology: unspecified etiology Qualified Code(s): J02.9 - Acute pharyngitis, unspecified Assessment & Plan: exam is benign. Likely just due to cough. Code(s): J02.9 - ACUTE PHARYNGITIS, UNSPECIFIED (4) dvt prophylaxis Current Visit: Yes Status: Acute (5) Hyponatremia Current Visit: Yes Status: Acute Assessment & Plan: mild, x 2d (Na 135). Code(s): E87.1 - HYPO-OSMOLALITY AND HYPONATREMIA (6) Hx of cancer of lung Current Visit: Yes Status: Acute Assessment & Plan: Dr. Stephens had planned to do CT chest with IV contrast - will check with his office to see what the order was, could do it here. Pt notes she needs premedicated if so as she is allergic to IV dye. She also had a bx L lung done at [place] recently - results requested. Code(s): Z85.118 - PERSONAL HISTORY OF MALIGNANT NEOPLASM OF BRONCHUS AND LUNG
[2022-07-25] MEDS: Sodium Chloride 0.9% 1000 ML 1,000 ML IV SCH (14:05)
[2022-07-25] MEDS ORDERED: BENADRYL 50 MG/ML IV ONE (16:00)
[2022-07-25] MEDS: DIOVAN 80 MG PO SCH (23:16)
[2022-07-25] MEDS: Singulair 10 MG PO SCH (23:17)
[2022-07-25] MEDS: Paxil 20 MG PO SCH (23:17)
[2022-07-25] MEDS: Cordarone 200 MG PO SCH (23:18)
[2022-07-25] MEDS: Zocor 10MG PO SCH (23:18)
[2022-07-26] MEDS: Sodium Chloride 0.9% 1000 ML 1,000 ML IV SCH (01:53)
[2022-07-26] MEDS: DUONEB 0.5-3 MG/3 ml Neb IH SCH ×6 (03:07→22:58)
[2022-07-26] MEDS: Tessalon Perles 100 MG PO PRN ×2 (03:35→15:23)
[2022-07-26] MEDS ORDERED: HYDROCODONE-ACETAMIN 2.5-108/5 ML SOLUTION ONE ×2 (03:37→03:41)
[2022-07-26] MEDS: HYDROCODONE-ACETAMIN 2.5-108/5 ML SOLUTION PO PRN ×2 (03:41→19:52)
[2022-07-26 05:19] LABS: Absolute Neutrophil Ct (ANC) 6.76 x10^3/uL (1.4-6.9); BASOPHIL % 0.6 % (0.0-0.4); Basophil (Absolute #) 0.05 x10^3/uL (0-0.4); Eosinophil (Absolute #) 0 x10^3/uL (0-0.5); Hematocrit 34.9 % (35-47); IMMATURE GRAN # 0.35 x10^3u/L (0.00-0.03); IMMATURE GRAN % 4.4 % (0.00-0.4); Lymphocyte (Absolute #) 0.37 x10^3/uL (1.0-4.6); Lymphocytes % 4.7 % (24.0-44.0); Mean Cell Volume 93.3 fL (78-100); Mean Corpuscular Hemoglobin 29.4 pg (26-32); Mean Corpuscular Hgb Concent. 31.5 g/dL (32-36); Mean Platelet Volume 12.3 fL (7.5-11.0); Monocyte (Absolute #) 0.36 x10^3/uL (0.0-1.3); Monocytes % 4.6 % (0.0-12.0); Neutrophil % 85.7 % (36.0-66.0); Platelet Count 144 x10^3/uL (150-450); Red Blood Count 3.74 x10^6/uL (4.1-5.4); White Blood Count 7.9 x10^3/uL (4.0-10.5)
[2022-07-26] MEDS: solu-MEDROL 125 MG, Sterile H2O 10 ml 2 ML IV SCH ×2 (05:37)
[2022-07-26] MEDS: Hydromorphone 1 mg/ml Injection IV PRN ×4 (05:38→23:10)
[2022-07-26 05:46] LABS: ANION GAP 12.6 MEQ/L (5-15); BLOOD UREA NITROGEN 31 mg/dL (7-17); CHLORIDE 101 mmol/L (98-107); Carbon Dioxide 26 mmol/L (22-30); Creatinine 1 0.75 mg/dL (0.52-1.04); EST GLOMERULAR FILTRATION RATE > 60.0 ML/MIN; Glucose 280 mg/dL (74-106); Potassium 3.9 mmol/L (3.5-5.1); SODIUM 136 mmol/L (137-145)
[2022-07-26] MEDS: Advair Hfa 230/21 Mcg COMMON CANISTER IH SCH ×2 (07:03→19:05)
[2022-07-26 07:12] LABS: Slide Review 1 YES
--- NOTE | 2022-07-26 08:55 | XRAY ---
Indication: Short of breath. Fatigue Multiple contiguous axial images obtained through the chest using 80 cc Isovue 370 contrast and PE protocol. Comparison: January 09, 2022 Adequate opacification of the pulmonary arteries to include the lobar and segmental branches. No pulmonary embolus. Heart is now enlarged with new left pacemaker. Aorta is normal in course and caliber without aneurysm/dissection. Again bilateral hilar suture material and chunky bilateral hilar calcified nodes. No pathologic mediastinal/hilar lymphadenopathy. Lungs again hyperinflated with scattered bilateral fibrosis/scarring and tiny calcified granulomas. No suspicious pulmonary mass/nodule, infiltrate, or effusion. Bony thorax intact again with osteopenia and moderate degenerative changes throughout the spine. Limited upper abdomen again demonstrates epigastric and cholecystectomy surgical clips. Impression: 1. Negative pulmonary embolus. 2. New cardiomegaly and left pacemaker without CHF. 3. Again chronic findings including post surgical changes, chronic bony findings, and old granulomatous disease.
--- NOTE | 2022-07-26 09:01 | PCM.NOTE ---
Date and Time: 07/26/22 0859 Subjective Assessment: feeling some better, c/o headache from steroids. she is concerned about going up stairs to her apartment when released with her breathing still being labored, she does note improvement. Objective Exam General Appearance: obese Neurologic Exam: alert, 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 Respiratory Exam: rhonchi, wheezing, No accessory muscle use Cardiovascular Exam: regular rate/rhythm, normal heart sounds Gastrointestinal/Abdomen Exam: soft, No tenderness, No mass OBJECTIVE DATA Vital Signs: Vital Signs - 24 hr Temp Pulse Resp BP Pulse Ox 07/26/22 07:36 79 16 96 07/26/22 07:09 97.8 F 65 16 161/69 99 07/26/22 04:00 97.9 F 67 18 167/74 93 L 07/26/22 03:07 67 18 93 L 07/26/22 00:00 97.9 F 87 21 167/74 98 07/25/22 23:05 80 18 94 L 07/25/22 19:58 98.0 F 70 18 174/74 98 07/25/22 18:40 73 16 93 L 07/25/22 16:00 97.3 F 71 18 141/63 91 L 07/25/22 15:10 73 16 92 L 07/25/22 11:20 67 16 94 L 07/25/22 11:11 97.7 F 62 17 161/72 95 Pain Assessment - Last Documented Pain Intensity 8 Pain Scale Used 0-10 Pain Scale Intake and Output: Intake & Output 07/23/22 07/24/22 07/25/22 07/26/22 11:59 11:59 11:59 11:59 Intake Total 2880 1800 2500 2113 Balance 2880 1800 2500 2113 Weight 113.1 kg 113.1 kg 113.4 kg 119.1 kg Lab Results: Lab Results-Last 24 Hours 07/25/22 07/25/22 07/25/22 Range/Units 11:01 16:24 21:05 WBC (4.0-10.5) x10^3/uL RBC (4.1-5.4) x10^6/uL Hgb (12.0-16.0) g/dL Hct (35-47) % MCV (78-100) fL MCH (26-32) pg MCHC (32-36) g/dL RDW (11.5-14.0) % Plt Count (150-450) x10^3/uL MPV (7.5-11.0) fL Gran % (36.0-66.0) % Immature Gran % (Auto) (0.00-0.4) % Nucleat RBC Rel Count (0.00-0.1) % Eos # (Auto) (0-0.5) x10^3/uL Immature Gran # (Auto) (0.00-0.03) x10^3u/L Absolute Lymphs (auto) (1.0-4.6) x10^3/uL Absolute Monos (auto) (0.0-1.3) x10^3/uL Absolute Nucleated RBC (0.00-0.01) x10^3u/L Lymphocytes % (24.0-44.0) % Monocytes % (0.0-12.0) % Eosinophils % (0.00-5.0) % Basophils % (0.0-0.4) % Absolute Granulocytes (1.4-6.9) x10^3/uL Basophils # (0-0.4) x10^3/uL Sodium (137-145) mmol/L Potassium (3.5-5.1) mmol/L Chloride (98-107) mmol/L Carbon Dioxide (22-30) mmol/L Anion Gap (5-15) MEQ/L BUN (7-17) mg/dL Creatinine (0.52-1.04) mg/dL Estimated GFR ML/MIN Glucose (74-106) mg/dL POC Glucometer 219 H 275 H 282 H (74 to 106) mg/dL Calcium (8.4-10.2) mg/dL Slides for Path Review 07/26/22 07/26/22 07/26/22 Range/Units 04:25 04:25 06:48 WBC 7.9 (4.0-10.5) x10^3/uL RBC 3.74 L (4.1-5.4) x10^6/uL Hgb 11.0 L (12.0-16.0) g/dL Hct 34.9 L (35-47) % MCV 93.3 (78-100) fL MCH 29.4 (26-32) pg MCHC 31.5 L (32-36) g/dL RDW 16.0 H (11.5-14.0) % Plt Count 144 L (150-450) x10^3/uL MPV 12.3 H (7.5-11.0) fL Gran % 85.7 H (36.0-66.0) % Immature Gran % (Auto) 4.4 H (0.00-0.4) % Nucleat RBC Rel Count 0.0 (0.00-0.1) % Eos # (Auto) 0 (0-0.5) x10^3/uL Immature Gran # (Auto) 0.35 H (0.00-0.03) x10^3u/L Absolute Lymphs (auto) 0.37 L (1.0-4.6) x10^3/uL Absolute Monos (auto) 0.36 (0.0-1.3) x10^3/uL Absolute Nucleated RBC 0.00 (0.00-0.01) x10^3u/L Lymphocytes % 4.7 L (24.0-44.0) % Monocytes % 4.6 (0.0-12.0) % Eosinophils % 0.0 (0.00-5.0) % Basophils % 0.6 (0.0-0.4) % Absolute Granulocytes 6.76 (1.4-6.9) x10^3/uL Basophils # 0.05 (0-0.4) x10^3/uL Sodium 136 L (137-145) mmol/L Potassium 3.9 (3.5-5.1) mmol/L Chloride 101 (98-107) mmol/L Carbon Dioxide 26 (22-30) mmol/L Anion Gap 12.6 (5-15) MEQ/L BUN 31 H (7-17) mg/dL Creatinine 0.75 (0.52-1.04) mg/dL Estimated GFR > 60.0 ML/MIN Glucose 280 H (74-106) mg/dL POC Glucometer 265 H (74 to 106) mg/dL Calcium 8.0 L (8.4-10.2) mg/dL Slides for Path Review YES Radiology Exams: Radiology Procedures Category Date Time Status CHEST 2 VIEWS (PA AND LAT) Routine Exams 07/25/22 09:11 Completed CHEST WITH CONTRAST [CT] Routine Exams 07/25/22 14:02 Completed Multi-Disciplinary Progress Notes: Multi-Disciplinary Progress Notes 07/25/22 10:22 Case Management Note by Senait Worthy S/W PATIENT. SHE CONTINUES TO DENY ANY NEW NEEDS AT TIME OF DC. SHE PLANS TO RETURN HOME TO HER PLOF AT TIME OF DC/ Initialized on 07/25/22 10:22 - END OF NOTE Assessment/Plan (1) COPD exacerbation Current Visit: Yes Status: Acute Assessment & Plan: improving clinically, reduce solu medrol from 125mg to 80mg and continue rocephin/nebs, possible discharge tomorrow Code(s): J44.1 - CHRONIC OBSTRUCTIVE PULMONARY DISEASE W (ACUTE) EXACERBATION (2) Pharyngitis Current Visit: Yes Status: Acute Qualifiers: Pharyngitis/tonsillitis etiology: unspecified etiology Qualified Code(s): J02.9 - Acute pharyngitis, unspecified Code(s): J02.9 - ACUTE PHARYNGITIS, UNSPECIFIED
[2022-07-26] MEDS: Pepcid 20 MG PO SCH ×2 (10:34→21:28)
[2022-07-26] MEDS: Acidophilus TABLET PO SCH ×3 (10:34→21:28)
[2022-07-26] MEDS: THEOPHYLLINE ER 24HR PO SCH (10:35)
[2022-07-26] MEDS: ROCEPHIN 1 Gm-D5w 50 ml Bag** 1 G/50 ML IVPB IV SCH (11:04)
[2022-07-26] MEDS: HUMALOG SQ PRN ×2 (11:34→22:15)
[2022-07-26] MEDS: solu-MEDROL 80 MG, Sterile H2O 10 ml 2 ML IV SCH ×6 (11:35→23:22)
[2022-07-26] MEDS ORDERED: DULCOLAX 5 MG PO PRN (15:48)
[2022-07-26] MEDS: TYLENOL EXTRA STRENGTH 500 MG PO PRN (18:13)
[2022-07-26] MEDS: DIOVAN 80 MG PO SCH (21:27)
[2022-07-26] MEDS: Paxil 20 MG PO SCH (21:28)
[2022-07-26] MEDS: Singulair 10 MG PO SCH (21:28)
[2022-07-26] MEDS: Zocor 10MG PO SCH (21:29)
[2022-07-26] MEDS: Cordarone 200 MG PO SCH (21:29)
[2022-07-26] MEDS: Ambien 10 MG PO PRN (23:10)
[2022-07-27] MEDS: DUONEB 0.5-3 MG/3 ml Neb IH SCH ×6 (02:55→22:10)
[2022-07-27 04:50] LABS: Absolute Neutrophil Ct (ANC) 8.68 x10^3/uL (1.4-6.9); BASOPHIL % 0.3 % (0.0-0.4); Basophil (Absolute #) 0.03 x10^3/uL (0-0.4); Eosinophil (Absolute #) 0 x10^3/uL (0-0.5); Hematocrit 33.5 % (35-47); IMMATURE GRAN # 0.44 x10^3u/L (0.00-0.03); IMMATURE GRAN % 4.4 % (0.00-0.4); Mean Cell Volume 89.8 fL (78-100); Mean Corpuscular Hemoglobin 29.5 pg (26-32); Mean Corpuscular Hgb Concent. 32.8 g/dL (32-36); Mean Platelet Volume 11.2 fL (7.5-11.0); Monocyte (Absolute #) 0.41 x10^3/uL (0.0-1.3); Monocytes % 4.1 % (0.0-12.0); NUCLEATED RBC # 0.02 x10^3u/L (0.00-0.01); NUCLEATED RBC % 0.2 % (0.00-0.1); Neutrophil % 87.2 % (36.0-66.0); Platelet Count 151 x10^3/uL (150-450); Red Blood Count 3.73 x10^6/uL (4.1-5.4); Red Cell Distribution Width 15.8 % (11.5-14.0)
[2022-07-27 05:05] LABS: ANION GAP 6.2 MEQ/L (5-15); BLOOD UREA NITROGEN 37 mg/dL (7-17); CHLORIDE 101 mmol/L (98-107); Calcium 7.9 mg/dL (8.4-10.2); Carbon Dioxide 32 mmol/L (22-30); Creatinine 1 0.83 mg/dL (0.52-1.04); EST GLOMERULAR FILTRATION RATE > 60.0 ML/MIN; Glucose 270 mg/dL (74-106); Potassium 3.9 mmol/L (3.5-5.1); SODIUM 134 mmol/L (137-145)
[2022-07-27] MEDS ORDERED: solu-MEDROL ONE ×2 (05:15→16:53)
[2022-07-27] MEDS ORDERED: Sterile H2O 10 ml IJ ONE (05:15)
[2022-07-27] MEDS: solu-MEDROL 80 MG, Sterile H2O 10 ml 2 ML IV SCH ×8 (05:41→23:14)
[2022-07-27 06:21] LABS: Slide Review 1 YES
[2022-07-27] MEDS: Hydromorphone 1 mg/ml Injection IV PRN ×5 (06:28→23:14)
[2022-07-27] MEDS: Advair Hfa 230/21 Mcg COMMON CANISTER IH SCH ×2 (06:55→17:56)
[2022-07-27] MEDS: Tessalon Perles 100 MG PO PRN (07:28)
--- NOTE | 2022-07-27 08:06 | PCM.NOTE ---
Date and Time: 07/27/22 0804 Subjective Assessment: patient continues to have productive cough with some blood tinge, still wheezing and not tolerating much activity Objective Exam General Appearance: obese Neurologic Exam: alert, 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 Respiratory Exam: wheezing Cardiovascular Exam: regular rate/rhythm, normal heart sounds Gastrointestinal/Abdomen Exam: soft, No tenderness, No mass OBJECTIVE DATA Vital Signs: Vital Signs - 24 hr Temp Pulse Resp BP Pulse Ox 07/27/22 07:14 97.5 F 72 18 148/71 97 07/27/22 06:56 72 18 97 07/27/22 04:00 69 18 135/60 93 L 07/27/22 02:55 78 18 95 07/26/22 23:42 97.9 F 69 16 160/67 97 07/26/22 23:02 69 16 97 07/26/22 19:51 97.7 F 73 19 142/67 97 07/26/22 19:08 79 18 97 07/26/22 16:00 97.3 F 83 16 158/64 97 07/26/22 14:58 78 20 96 07/26/22 11:26 97.1 F 66 18 129/65 95 07/26/22 11:17 76 18 97 Pain Assessment - Last Documented Pain Intensity 7 Pain Scale Used 0-10 Pain Scale Intake and Output: Intake & Output 07/24/22 07/25/22 07/26/22 07/27/22 11:59 11:59 11:59 11:59 Intake Total 1800 2500 2113 1560 Output Total 350 Balance 1800 2500 2113 1210 Weight 113.1 kg 113.4 kg 119.1 kg Lab Results: Lab Results-Last 24 Hours 07/26/22 07/26/22 07/26/22 Range/Units 11:14 15:50 20:48 WBC (4.0-10.5) x10^3/uL RBC (4.1-5.4) x10^6/uL Hgb (12.0-16.0) g/dL Hct (35-47) % MCV (78-100) fL MCH (26-32) pg MCHC (32-36) g/dL RDW (11.5-14.0) % Plt Count (150-450) x10^3/uL MPV (7.5-11.0) fL Gran % (36.0-66.0) % Immature Gran % (Auto) (0.00-0.4) % Nucleat RBC Rel Count (0.00-0.1) % Eos # (Auto) (0-0.5) x10^3/uL Immature Gran # (Auto) (0.00-0.03) x10^3u/L Absolute Lymphs (auto) (1.0-4.6) x10^3/uL Absolute Monos (auto) (0.0-1.3) x10^3/uL Absolute Nucleated RBC (0.00-0.01) x10^3u/L Lymphocytes % (24.0-44.0) % Monocytes % (0.0-12.0) % Eosinophils % (0.00-5.0) % Basophils % (0.0-0.4) % Absolute Granulocytes (1.4-6.9) x10^3/uL Basophils # (0-0.4) x10^3/uL Sodium (137-145) mmol/L Potassium (3.5-5.1) mmol/L Chloride (98-107) mmol/L Carbon Dioxide (22-30) mmol/L Anion Gap (5-15) MEQ/L BUN (7-17) mg/dL Creatinine (0.52-1.04) mg/dL Estimated GFR ML/MIN Glucose (74-106) mg/dL POC Glucometer 202 H 348 H 227 H (74 to 106) mg/dL Calcium (8.4-10.2) mg/dL Slides for Path Review 07/27/22 07/27/22 07/27/22 Range/Units 04:29 04:29 07:03 WBC 10.0 (4.0-10.5) x10^3/uL RBC 3.73 L (4.1-5.4) x10^6/uL Hgb 11.0 L (12.0-16.0) g/dL Hct 33.5 L (35-47) % MCV 89.8 (78-100) fL MCH 29.5 (26-32) pg MCHC 32.8 (32-36) g/dL RDW 15.8 H (11.5-14.0) % Plt Count 151 (150-450) x10^3/uL MPV 11.2 H (7.5-11.0) fL Gran % 87.2 H (36.0-66.0) % Immature Gran % (Auto) 4.4 H (0.00-0.4) % Nucleat RBC Rel Count 0.2 H (0.00-0.1) % Eos # (Auto) 0 (0-0.5) x10^3/uL Immature Gran # (Auto) 0.44 H (0.00-0.03) x10^3u/L Absolute Lymphs (auto) 0.40 L (1.0-4.6) x10^3/uL Absolute Monos (auto) 0.41 (0.0-1.3) x10^3/uL Absolute Nucleated RBC 0.02 H (0.00-0.01) x10^3u/L Lymphocytes % 4.0 L (24.0-44.0) % Monocytes % 4.1 (0.0-12.0) % Eosinophils % 0.0 (0.00-5.0) % Basophils % 0.3 (0.0-0.4) % Absolute Granulocytes 8.68 H (1.4-6.9) x10^3/uL Basophils # 0.03 (0-0.4) x10^3/uL Sodium 134 L (137-145) mmol/L Potassium 3.9 (3.5-5.1) mmol/L Chloride 101 (98-107) mmol/L Carbon Dioxide 32 H (22-30) mmol/L Anion Gap 6.2 (5-15) MEQ/L BUN 37 H (7-17) mg/dL Creatinine 0.83 (0.52-1.04) mg/dL Estimated GFR > 60.0 ML/MIN Glucose 270 H (74-106) mg/dL POC Glucometer 244 H (74 to 106) mg/dL Calcium 7.9 L (8.4-10.2) mg/dL Slides for Path Review YES Radiology Exams: Radiology Procedures Category Date Time Status CHEST 2 VIEWS (PA AND LAT) Routine Exams 07/25/22 09:11 Completed CHEST WITH CONTRAST [CT] Routine Exams 07/25/22 14:02 Completed Multi-Disciplinary Progress Notes: Multi-Disciplinary Progress Notes 07/26/22 12:51 Case Management Note by Senait Worthy S/W PATIENT. SHE CONTINUES TO DENY ANY NEW NEEDS AT TIME OF DC. SHE PLANS TO RETURN HOME TO HER PLOF AT TIME OF DC/ Initialized on 07/26/22 12:51 - END OF NOTE Assessment/Plan (1) COPD exacerbation Current Visit: Yes Status: Acute Assessment & Plan: continue rocephin, IV solu medrol and nebs. enterobacter on sputum culture sens to rocephin, slow progress not unexpected due to lung volume loss from previous surgery for lung cancer, ct shows no evidence of recurrence of malignancy at this time. Code(s): J44.1 - CHRONIC OBSTRUCTIVE PULMONARY DISEASE W (ACUTE) EXACERBATION (2) Pharyngitis Current Visit: Yes Status: Acute Qualifiers: Pharyngitis/tonsillitis etiology: unspecified etiology Qualified Code(s): J02.9 - Acute pharyngitis, unspecified Code(s): J02.9 - ACUTE PHARYNGITIS, UNSPECIFIED
[2022-07-27] MEDS: Pepcid 20 MG PO SCH ×2 (09:24→21:57)
[2022-07-27] MEDS: ROCEPHIN 1 Gm-D5w 50 ml Bag** 1 G/50 ML IVPB IV SCH (09:24)
[2022-07-27] MEDS: THEOPHYLLINE ER 24HR PO SCH (09:25)
[2022-07-27] MEDS: Acidophilus TABLET PO SCH ×3 (09:25→21:56)
[2022-07-27] MEDS: HYDROCODONE-ACETAMIN 2.5-108/5 ML SOLUTION PO PRN ×2 (12:00→20:47)
[2022-07-27] MEDS: HUMALOG SQ PRN ×3 (12:11→22:04)
[2022-07-27] MEDS: TYLENOL EXTRA STRENGTH 500 MG PO PRN (12:43)
[2022-07-27] MEDS: PHENERGAN 25 MG PO PRN ×2 (13:38→23:14)
[2022-07-27] MEDS: Singulair 10 MG PO SCH (21:56)
[2022-07-27] MEDS: DIOVAN 80 MG PO SCH (21:56)
[2022-07-27] MEDS: Cordarone 200 MG PO SCH (21:56)
[2022-07-27] MEDS: Paxil 20 MG PO SCH (21:56)
[2022-07-27] MEDS: Zocor 10MG PO SCH (21:57)
[2022-07-27] MEDS: Ambien 10 MG PO PRN (23:22)
[2022-07-28] MEDS: DUONEB 0.5-3 MG/3 ml Neb IH SCH ×2 (02:25→06:20)
[2022-07-28 05:04] LABS: Absolute Neutrophil Ct (ANC) 8.52 x10^3/uL (1.4-6.9); BASOPHIL % 0.4 % (0.0-0.4); Basophil (Absolute #) 0.04 x10^3/uL (0-0.4); Eosinophil (Absolute #) 0 x10^3/uL (0-0.5); Hematocrit 34.9 % (35-47); Hemoglobin 11.4 g/dL (12.0-16.0); IMMATURE GRAN # 0.48 x10^3u/L (0.00-0.03); IMMATURE GRAN % 4.9 % (0.00-0.4); Lymphocyte (Absolute #) 0.35 x10^3/uL (1.0-4.6); Lymphocytes % 3.6 % (24.0-44.0); Mean Cell Volume 90.4 fL (78-100); Mean Corpuscular Hemoglobin 29.5 pg (26-32); Mean Corpuscular Hgb Concent. 32.7 g/dL (32-36); Mean Platelet Volume 11.1 fL (7.5-11.0); Monocyte (Absolute #) 0.32 x10^3/uL (0.0-1.3); Monocytes % 3.3 % (0.0-12.0); Neutrophil % 87.8 % (36.0-66.0); Platelet Count 125 x10^3/uL (150-450); Red Blood Count 3.86 x10^6/uL (4.1-5.4); Red Cell Distribution Width 15.8 % (11.5-14.0); White Blood Count 9.7 x10^3/uL (4.0-10.5)
[2022-07-28] MEDS ORDERED: Sterile H2O 10 ml IJ ONE (05:28)
[2022-07-28] MEDS ORDERED: solu-MEDROL ONE ×2 (05:28)
[2022-07-28 05:29] LABS: ANION GAP 8.9 MEQ/L (5-15); BLOOD UREA NITROGEN 31 mg/dL (7-17); CHLORIDE 98 mmol/L (98-107); Calcium 7.6 mg/dL (8.4-10.2); Carbon Dioxide 31 mmol/L (22-30); Creatinine 1 0.79 mg/dL (0.52-1.04); EST GLOMERULAR FILTRATION RATE > 60.0 ML/MIN; Glucose 252 mg/dL (74-106); Potassium 3.8 mmol/L (3.5-5.1); SODIUM 134 mmol/L (137-145)
[2022-07-28] MEDS: Advair Hfa 230/21 Mcg COMMON CANISTER IH SCH (06:21)
[2022-07-28 06:26] VITALS: O2SAT 96
[2022-07-28] MEDS: solu-MEDROL 80 MG, Sterile H2O 10 ml 2 ML IV SCH ×2 (06:33)
[2022-07-28] MEDS: TYLENOL EXTRA STRENGTH 500 MG PO PRN (06:34)
[2022-07-28 06:45] LABS: Slide Review 1 YES
[2022-07-28 07:29] VITALS: BP 142/63; PULSE 69
[2022-07-28] MEDS: HUMALOG SQ PRN (08:02)
--- NOTE | 2022-07-28 08:15 | PCM.DS ---
Discharge Summary Date of Admission: 07/22/22 13:58 Admitting Physician: JOVANNI BREWER Primary Care Provider: SKYLER CEJA Allergies Allergies clarithromycin [From Biaxin] Allergy (Severe, Verified 07/21/22 08:12) Hives Coconut Allergy (Severe, Verified 07/21/22 08:12) Difficulty Breathing green dye *RETIRED-07/03/12 [Green Dye] Allergy (Mild, Verified 07/21/22 08:12) Swelling swelling ears red dye [Red Dye] Allergy (Mild, Verified 07/21/22 08:12) Swelling ears swell adhesive Allergy (Verified 07/21/22 08:12) Rash cholestyramine Allergy (Verified 07/21/22 08:12) iodine Allergy (Verified 07/21/22 08:12) Wheezing latex Allergy (Verified 07/21/22 08:12) Rash nitrofurantoin [From Macrobid] Allergy (Verified 07/21/22 08:12) levofloxacin [From Levaquin] Adverse Reaction (Mild, Verified 07/21/22 08:12) [facility] Summary - Hospital Course Hospital Course: patient admitted with copd exacerbation, treated with steroids, nebs and rocephi n, grew enterobacter sens to rocephin on sputum culture. stable on room air, still has some wheeze but no tachypnea. remote hx lung cancer with surgical removal bilaterally with lung volume loss, follows with Dr Martin - Vitals & Intake/Output Vital Signs: Vital Signs Temperature 97.6 F 07/28/22 07:28 Pulse Rate 69 07/28/22 07:28 Respiratory Rate 16 07/28/22 07:28 Blood Pressure 142/63 07/28/22 07:28 O2 Sat by Pulse Oximetry 96 07/28/22 07:28 Intake & Output: Intake & Output 07/25/22 07/26/22 07/27/22 07/28/22 11:59 11:59 11:59 11:59 Intake Total 2500 2113 1680 840 Output Total 350 Balance 2500 2113 1330 840 Weight 113.4 kg 119.1 kg 118.6 kg 118.4 kg - Lab Result Diagrams: 07/28/22 05:01 07/28/22 05:01 Lab Results-Last 24 Hrs: Lab Results-Last 24 Hours 05/07/27/22 07/27/22 Range/Units 11:49 15:54 20:56 WBC (4.0-10.5) x10^3/uL RBC (4.1-5.4) x10^6/uL Hgb (12.0-16.0) g/dL Hct (35-47) % MCV (78-100) fL MCH (26-32) pg MCHC (32-36) g/dL RDW (11.5-14.0) % Plt Count (150-450) x10^3/uL MPV (7.5-11.0) fL Gran % (36.0-66.0) % Immature Gran % (Auto) (0.00-0.4) % Nucleat RBC Rel Count (0.00-0.1) % Eos # (Auto) (0-0.5) x10^3/uL Immature Gran # (Auto) (0.00-0.03) x10^3u/L Absolute Lymphs (auto) (1.0-4.6) x10^3/uL Absolute Monos (auto) (0.0-1.3) x10^3/uL Absolute Nucleated RBC (0.00-0.01) x10^3u/L Lymphocytes % (24.0-44.0) % Monocytes % (0.0-12.0) % Eosinophils % (0.00-5.0) % Basophils % (0.0-0.4) % Absolute Granulocytes (1.4-6.9) x10^3/uL Basophils # (0-0.4) x10^3/uL Sodium (137-145) mmol/L Potassium (3.5-5.1) mmol/L Chloride (98-107) mmol/L Carbon Dioxide (22-30) mmol/L Anion Gap (5-15) MEQ/L BUN (7-17) mg/dL Creatinine (0.52-1.04) mg/dL Estimated GFR ML/MIN Glucose (74-106) mg/dL POC Glucometer 231 H 238 H 295 H (74 to 106) mg/dL Calcium (8.4-10.2) mg/dL Slides for Path Review 07/28/22 07/28/22 07/28/22 Range/Units 05:01 05:01 07:46 WBC 9.7 (4.0-10.5) x10^3/uL RBC 3.86 L (4.1-5.4) x10^6/uL Hgb 11.4 L (12.0-16.0) g/dL Hct 34.9 L (35-47) % MCV 90.4 (78-100) fL MCH 29.5 (26-32) pg MCHC 32.7 (32-36) g/dL RDW 15.8 H (11.5-14.0) % Plt Count 125 L (150-450) x10^3/uL MPV 11.1 H (7.5-11.0) fL Gran % 87.8 H (36.0-66.0) % Immature Gran % (Auto) 4.9 H (0.00-0.4) % Nucleat RBC Rel Count 0.0 (0.00-0.1) % Eos # (Auto) 0 (0-0.5) x10^3/uL Immature Gran # (Auto) 0.48 H (0.00-0.03) x10^3u/L Absolute Lymphs (auto) 0.35 L (1.0-4.6) x10^3/uL Absolute Monos (auto) 0.32 (0.0-1.3) x10^3/uL Absolute Nucleated RBC 0.00 (0.00-0.01) x10^3u/L Lymphocytes % 3.6 L (24.0-44.0) % Monocytes % 3.3 (0.0-12.0) % Eosinophils % 0.0 (0.00-5.0) % Basophils % 0.4 (0.0-0.4) % Absolute Granulocytes 8.52 H (1.4-6.9) x10^3/uL Basophils # 0.04 (0-0.4) x10^3/uL Sodium 134 L (137-145) mmol/L Potassium 3.8 (3.5-5.1) mmol/L Chloride 98 (98-107) mmol/L Carbon Dioxide 31 H (22-30) mmol/L Anion Gap 8.9 (5-15) MEQ/L BUN 31 H (7-17) mg/dL Creatinine 0.79 (0.52-1.04) mg/dL Estimated GFR > 60.0 ML/MIN Glucose 252 H (74-106) mg/dL POC Glucometer 247 H (74 to 106) mg/dL Calcium 7.6 L (8.4-10.2) mg/dL Slides for Path Review YES Micro Results-Entire Visit: Microbiology 07/21/22 08:54 Blood Culture - Final Blood 07/21/22 08:54 Blood Culture - Final Blood 07/21/22 09:06 Gram Stain - Final Sputum - Expectorant Sputum Culture - Final Enterobacter Clocae Complex Accuchecks Date 07/28/22 Date 07/27/22 Date 07/27/22 Date 07/27/22 Time 07:49 Time 21:00 Time 15:57 Time 11:54 - Procedures and Test Procedures and Tests throughout Hospitalization: Therapy Orders & Screens 07/21/22 09:01 Respiratory Therapy Assessment DAILY Comment: 07/21/22 12:19 Respiratory Therapy Consult ROUTINE Comment: Reason For Exam: 07/24/22 03:19 Oxygen Nasal Cannula 2 lpm Comment: Diagnosis: COPD Exacerbation Discharge Exam General Appearance: no apparent distress, obese Neurologic Exam: alert, 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 Respiratory Exam: prolonged expirations, wheezing, No respiratory distress, No accessory muscle use Cardiovascular Exam: regular rate/rhythm, normal heart sounds Gastrointestinal/Abdomen Exam: soft, No tenderness, No mass Extremity Exam: normal inspection, normal range of motion Skin Exam: normal color, warm, dry Final Diagnosis/Problem List - Final Discharge Diagnosis/Problem (1) COPD exacerbation Current Visit: Yes Status: Acute Assessment & Plan: home on po prednisone taper, nebs and cefdinir rx Code(s): J44.1 - CHRONIC OBSTRUCTIVE PULMONARY DISEASE W (ACUTE) EXACERBATION - Discharge Disposition: Home, Self-Care Condition: Good Prescriptions: New Cefdinir 300 mg PO BID #10 cap Prednisone 20 mg [Deltasone 20 mg] 20 mg PO UD #18 tablet Continue Zolpidem Tartrate [Ambien] 10 mg PO HSPRN PRN PRN Reason: SLEEP Rosuvastatin Calcium 5 mg PO QHS Budesonide/Glycopyr/Formoterol [Breztri Aerosphere Inhaler] 2 puffs IH BID Azelastine HCl 1 spray INTRANASAL HS Valsartan 40 mg PO QHS Montelukast Sodium 10 mg [Singulair 10 MG] 10 mg PO QHS PARoxetine HCL [Paxil] 10 mg PO HS Amiodarone HCl 100 mg PO QHS Instructions: Chronic Obstructive Pulmonary Disease (COPD) (DC), Preventing Falls in Older Adults Follow up with: KYLE MARTIN [CONSULTING PHYSICIAN] - Call for Appointment SKYLER CEJA NP [Primary Care Provider] - 1 Week
[2022-07-28] MEDS: Pepcid 20 MG PO SCH (08:48)
[2022-07-28] MEDS: Acidophilus TABLET PO SCH (08:49)
== END 2022-07-28 09:40 | disposition home or self-care (01) | DRG 191 ==
LOC: ED 08:08 → MED SURG 12:45 → OBSVTOIN 07-22 13:58 → MED SURG 07-23 12:54
PROVIDERS: ADMIT Family Medicine; ATTEND Family Medicine
DX: J44.1 Chronic obstructive pulmonary disease with (acute) exacerbation (principal); E87.1 Hypo-osmolality and hyponatremia; N39.0 Urinary tract infection, site not specified; R04.2 Hemoptysis; E11.9 Type 2 diabetes mellitus without complications; N28.9 Disorder of kidney and ureter, unspecified; J02.9 Acute pharyngitis, unspecified; Z85.118 Personal history of other malignant neoplasm of bronchus and lung; Z79.899 Other long term (current) drug therapy; Z20.828 Contact with and (suspected) exposure to other viral communicable diseases
CPT/HCPCS: 0241U; 36000; 36415; 71045; 71046; 71260; 80048; 80053; 81001; 82947; 83605; 83735; 83880; 84484; 85025; 85027; 87040; 87070; 87077; 87186; 93005; 94640; 94760; 94762; 96365; 96374; 99285; G0378; J0696; J1170; J1200; J1817; J2920; J2930; A9270-GY

== ENCOUNTER 2023-01-23 16:13 | Observation (INO) | payer MEDICARE, OTHER ==
[2023-01-23] MEDS ORDERED: solu-MEDROL 125 MG, Sterile H2O 10 ml 2 ML IV ONE ×2 (16:24)
[2023-01-23] MEDS ORDERED: DUONEB 0.5-3 MG/3 ml Neb IH ONE ×3 (16:24→18:46)
[2023-01-23] MEDS ORDERED: ROCEPHIN 2 Gm-D5w 50ML BAG** 2 G/50 ML IVPB IV STA (16:26)
[2023-01-23] MEDS ORDERED: Zithromax 500 MG/ 250 ML NaCl Premix 500 MG/250 ML IVPB IV STA (16:26)
[2023-01-23] MEDS ORDERED: Sterile H2O 10 ml IJ ONE ×2 (16:28→23:04)
[2023-01-23] MEDS ORDERED: ROCEPHIN 2 Gm-D5w 50ML BAG** 2 G/50 ML IVPB IV ONE (16:29)
[2023-01-23] MEDS ORDERED: solu-MEDROL ONE ×2 (16:29→22:46)
[2023-01-23] MEDS ORDERED: Zithromax 500 MG/ 250 ML NaCl Premix 0 MG/0 ML IVPB IV ONE (16:29)
--- NOTE | 2023-01-23 16:30 | ERPHSYRPT ---
- History of Present Illness Time Seen by Provider: 01/23/23 16:28 Source: patient Exam Limitations: no limitations Physician History: Patient 72-year-old female history of COPD history of lung cancer history of lung resection does had IV contrast dye this morning during an abdominal work-up presents to our ED with shortness of breath. Symptoms are mild to moderate in intensity. No specific worsening improving factors. Patient is mildly tachypneic on physical exam. There is audible wheezing. Symptoms worse with exertion. Symptoms improved with rest. No associated chest pain. Patient voices no other complaints or concerns at this time. Portions of this note were created with voice recognition technology. There may be grammatical, spelling, punctuation or sound alike errors Timing/Duration: today Activities at Onset: activity Severity of Dyspnea-Max: moderate Severity of Dyspnea-Current: mild Possible Cause: occasional episodes Modifying Factors: Improves With: activity Associated Symptoms: cough, No ankle swelling Allergies/Adverse Reactions: clarithromycin [From Biaxin] Allergy (Severe, Verified 01/23/23 16:20) Hives Coconut Allergy (Severe, Verified 01/23/23 16:20) Difficulty Breathing green dye *RETIRED-07/03/12 [Green Dye] Allergy (Mild, Verified 01/23/23 16:20) Swelling swelling ears red dye [Red Dye] Allergy (Mild, Verified 01/23/23 16:20) Swelling ears swell adhesive Allergy (Verified 01/23/23 16:20) Rash cholestyramine Allergy (Verified 01/23/23 16:20) iodine Allergy (Verified 01/23/23 16:20) Wheezing latex Allergy (Verified 01/23/23 16:20) Rash nitrofurantoin [From Macrobid] Allergy (Verified 01/23/23 16:20) levofloxacin [From Levaquin] Adverse Reaction (Mild, Verified 01/23/23 16:20) Joint Aches Home Medications: Zolpidem Tartrate [Ambien] 10 mg PO HSPRN PRN 08/16/15 [History] Rosuvastatin Calcium 5 mg PO QHS 05/29/21 [History] Azelastine HCl 1 spray INTRANASAL HS 09/05/21 [History] Budesonide/Glycopyr/Formoterol [Breztri Aerosphere Inhaler] 2 puffs IH BID 09/05/21 [History] Amiodarone HCl 100 mg PO QHS 07/21/22 [History] Montelukast Sodium 10 mg [Singulair 10 MG] 10 mg PO QHS 07/21/22 [History] PARoxetine HCL [Paxil] 10 mg PO HS 07/21/22 [History] Valsartan 40 mg PO QHS 07/21/22 [History] Hx Tetanus, Diphtheria Vaccination/Date Given: No Hx Influenza Vaccination/Date Given: Yes Hx Pneumococcal Vaccination/Date Given: Yes Travel Risk - Vaccine Status Have you recieved a Covid-19 vaccination: Yes [employer] Tender: Moderna - Vaccination Dates Date of 2cond Vaccination (if applicable): 2019 - Review of Systems Constitutional: No Symptoms, No Fever, No Chills Eyes: No Symptoms Ears, Nose, & Throat: No Symptoms Respiratory: No Symptoms, No Cough, No Dyspnea Cardiac: No Symptoms, No Chest Pain, No Edema, No Syncope Abdominal/Gastrointestinal: No Symptoms, No Abdominal Pain, No Nausea, No Vomiting, No Diarrhea Genitourinary Symptoms: No Symptoms, No Dysuria Musculoskeletal: No Symptoms, No Back Pain, No Neck Pain Skin: No Symptoms, No Rash Neurological: No Symptoms, No Dizziness, No Focal Weakness, No Sensory Changes Psychological: No Symptoms Endocrine: No Symptoms Hematologic/Lymphatic: No Symptoms Immunological/Allergic: No Symptoms All Other Systems: Reviewed and Negative - Past Medical History Pertinent Past Medical History: Yes Neurological History: No Pertinent History ENT History: Cataracts Cardiac History: Arrhythmia, Other Respiratory History: COPD, Other Endocrine Medical History: Diabetes Type II, Other Musculoskeletal History: Osteoarthritis GI Medical History: Diverticulitis, Gallbladder Disease, Pancreatitis History: No Pertinent History Psycho-Social History: Depression Female Reproductive Disorders: No Pertinent History Other Medical History: bruised liver, kidney disease in the past, seasonal allergies, lung ca - Past Surgical History Past Surgical History: Yes Neuro Surgical History: No Pertinent History Cardiac: Pacemaker Respiratory: Lobectomy Gastrointestinal: Appendectomy, Cholecystectomy, Hernia Repair Genitourinary: No Pertinent History Musculoskeletal: No Pertinent History, Joint Replacement, Orthopedic Surgery Female Surgical History: Hysterectomy, Other Other Surgical History: tonsilectomy, carpal tunnel, trigger finger X3, BLADDER SLING, colorectal, SI fusion, left wedge resection to lungs July 16, 2020, PACEMAKER 2022 - Social History Smoking Status: Former smoker How long have you smoked: 20 years Exposure to second hand smoke: No Drug Use: none Patient Lives Alone: Yes - Nursing Vital Signs Nursing Vital Signs: Initial Vital Signs Temperature 97.1 F 01/23/23 16:22 Pulse Rate 60 01/23/23 16:22 Respiratory Rate 25 H 01/23/23 16:22 Blood Pressure 141/60 01/23/23 16:22 O2 Sat by Pulse Oximetry 95 01/23/23 16:22 Pain Scale Pain Intensity 0 - Physical Exam General Appearance: no apparent distress, alert Eye Exam: PERRL/EOMI Ears, Nose, Throat Exam: hearing grossly normal, normal ENT inspection, normal pharynx Neck Exam: normal inspection, supple, full range of motion Respiratory Exam: diminished breath sounds, rhonchi, wheezing, other (Tachypneic) Cardiovascular/Chest Exam: normal heart sounds, regular rate/rhythm Abdominal/Gastrointestinal Exam: soft, No tenderness, No distention, No mass Extremity Exam: non-tender, normal range of motion, normal inspection, no calf tenderness, no pedal edema Neurologic Exam: alert, 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, cooperative, hasher operator II-XII nml as tested, sensation nml, No motor deficits Skin Exam: normal color, warm, No dry Lymphatic Exam: No adenopathy SpO2 Interpretation: normal SpO2: 98 O2 Delivery: Room Air - Course Nursing assessment & vital signs reviewed: Yes - Radiology Exams Chest X-ray Interpretation: Teleradiologist Report (Nonacute chest with chronic features) Ordered Tests: Active Orders 24 hr Category Date Time Status Wet Pan Mixer STAT Care 01/23/23 16:24 Active EKG-ER Only STAT Care 01/23/23 16:24 Active IV Insertion STAT Care 01/23/23 16:26 Active Pulse Oximetry (ED) STAT Care 01/23/23 16:24 Active CHEST 1 VIEW (PORTABLE) Stat Exams 01/23/23 16:24 Completed BLOOD CULTURE Stat Lab 01/23/23 16:46 Received CBC W DIFF Stat Lab 01/23/23 16:24 Completed CMP Stat Lab 01/23/23 16:20 Completed NT PRO BNPII Stat Lab 01/23/23 Completed TROPONIN Q4H Lab 01/23/23 16:20 Completed TROPONIN Q4H Lab 01/23/23 20:30 Ordered TROPONIN Q4H Lab 01/24/23 00:30 Ordered Respiratory Therapy Assessment DAILY RT 01/23/23 16:39 Active Transfer Order Routine Transfer 01/23/23 Ordered Medication Summary Generic Name Dose Route Start Last Admin Trade Name Meche PRN Reason Stop Dose Admin Doxycycline Hyclate 100 mg/ 100 mls @ 100 mls/hr 01/23/23 22:00 01/23/23 17:10 Dextrose IV 02/22/23 21:59 100 mls/hr Q12HT BENI Administration Discontinued Medications Generic Name Dose Route Start Last Admin Trade Name Meche PRN Reason Stop Dose Admin Albuterol/Ipratropium 3 ml 01/23/23 16:24 01/23/23 16:34 Ipratropium/Albuterol Sulfate 3 Ml Ampul.Neb IH 01/23/23 16:25 3 ml STAT ONE Administration Albuterol/Ipratropium Confirm 01/23/23 16:32 Ipratropium/Albuterol Sulfate 3 Ml Ampul.Neb Administered 01/23/23 16:33 Dose 3 ml IH .STK-MED ONE Methylprednisolone Sodium 0 mg 01/23/23 16:24 01/23/23 16:32 Succinate 125 mg/ Sterile IV 01/23/23 16:25 125 mg Water 2 ml STAT ONE Administration Doxycycline Hyclate Confirm 01/23/23 17:07 Doxycycline Hyclate 100 Mg/Vial Injection Administered 01/23/23 17:08 Dose 100 mg IV .STK-MED ONE Ceftriaxone Sodium/Dextrose 2 g in 50 mls @ 100 mls/hr 01/23/23 16:26 01/23/23 17:09 Rocephin 2 Gm-D5w 50ml Bag IV 01/23/23 16:55 Infused STAT STA Infusion Azithromycin 500 mg in 250 mls @ 250 mls/hr 01/23/23 16:26 01/23/23 17:05 Zithromax 500 Mg/ 250 Ml Nacl Premix IV 01/23/23 17:25 Not Given STAT STA Azithromycin Confirm 01/23/23 16:29 Zithromax 500 Mg/ 250 Ml Nacl Premix Administered 01/23/23 16:30 Dose 500 mg in 250 mls @ ud IV .STK-MED ONE Ceftriaxone Sodium/Dextrose Confirm 01/23/23 16:29 Rocephin 2 Gm-D5w 50ml Bag Administered 01/23/23 16:30 Dose 2 g in 50 mls @ ud IV .STK-MED ONE Dextrose Confirm 01/23/23 17:07 D5w 100ml Mini Bag 100 Ml Administered 01/23/23 17:08 Dose 100 mls @ ud IV .STK-MED ONE Methylprednisolone Sodium Succinate Confirm 01/23/23 16:29 Methylprednis Sod Succ 125 Mg/2 Ml Vial Administered 01/23/23 16:30 Dose 125 mg .ROUTE .STK-MED ONE Sterile Water Confirm 01/23/23 16:28 Water For Injection,Sterile 10 Ml Vial Administered 01/23/23 16:29 Dose 10 ml IJ .STK-MED ONE Lab/Rad Data: Laboratory Result Diagrams 01/23/23 16:24 01/23/23 16:20 Laboratory Results 01/23/23 01/23/23 01/23/23 Range/Units Unknown 16:50 16:24 WBC 6.5 (4.0-10.5) x10^3/uL RBC 4.25 (4.1-5.4) x10^6/uL Hgb 12.3 (12.0-16.0) g/dL Hct 39.1 (35-47) % MCV 92.0 (78-100) fL MCH 28.9 (26-32) pg MCHC 31.5 L (32-36) g/dL RDW 14.6 H (11.5-14.0) % Plt Count 151 (150-450) x10^3/uL MPV 11.6 H (7.5-11.0) fL Gran % 59.9 (36.0-66.0) % Immature Gran % (Auto) 0.3 (0.00-0.4) % Nucleat RBC Rel Count 0.0 (0.00-0.1) % Eos # (Auto) 0.19 (0-0.5) x10^3/uL Immature Gran # (Auto) 0.02 (0.00-0.03) x10^3u/L Absolute Lymphs (auto) 1.72 (1.0-4.6) x10^3/uL Absolute Monos (auto) 0.62 (0.0-1.3) x10^3/uL Absolute Nucleated RBC 0.00 (0.00-0.01) x10^3u/L Lymphocytes % 26.7 (24.0-44.0) % Monocytes % 9.6 (0.0-12.0) % Eosinophils % 2.9 (0.00-5.0) % Basophils % 0.6 (0.0-0.4) % Absolute Granulocytes 3.86 (1.4-6.9) x10^3/uL Basophils # 0.04 (0-0.4) x10^3/uL Sodium (137-145) mmol/L Potassium (3.5-5.1) mmol/L Chloride (98-107) mmol/L Carbon Dioxide (22-30) mmol/L Anion Gap (5-15) MEQ/L BUN (7-17) mg/dL Creatinine (0.52-1.04) mg/dL Estimated GFR ML/MIN Glucose (74-106) mg/dL Calcium (8.4-10.2) mg/dL Total Bilirubin (0.2-1.3) mg/dL AST (14-36) U/L ALT (0-35) U/L Alkaline Phosphatase (38-126) U/L Troponin I (0.000-0.034) ng/mL NT-Pro-B Natriuret Pep 962 (<300) pg/mL Serum Total Protein (6.3-8.2) g/dL Albumin (3.5-5.0) g/dL Influenza Type A Ag NEGATIVE (NEGATIVE) Influenza Type B Ag NEGATIVE (NEGATIVE) RSV (PCR) NEGATIVE (NEGATIVE) SARS-CoV-2 (PCR) NEGATIVE (NEGATIVE) 01/23/23 01/23/23 Range/Units 16:20 16:20 WBC (4.0-10.5) x10^3/uL RBC (4.1-5.4) x10^6/uL Hgb (12.0-16.0) g/dL Hct (35-47) % MCV (78-100) fL MCH (26-32) pg MCHC (32-36) g/dL RDW (11.5-14.0) % Plt Count (150-450) x10^3/uL MPV (7.5-11.0) fL Gran % (36.0-66.0) % Immature Gran % (Auto) (0.00-0.4) % Nucleat RBC Rel Count (0.00-0.1) % Eos # (Auto) (0-0.5) x10^3/uL Immature Gran # (Auto) (0.00-0.03) x10^3u/L Absolute Lymphs (auto) (1.0-4.6) x10^3/uL Absolute Monos (auto) (0.0-1.3) x10^3/uL Absolute Nucleated RBC (0.00-0.01) x10^3u/L Lymphocytes % (24.0-44.0) % Monocytes % (0.0-12.0) % Eosinophils % (0.00-5.0) % Basophils % (0.0-0.4) % Absolute Granulocytes (1.4-6.9) x10^3/uL Basophils # (0-0.4) x10^3/uL Sodium 138 (137-145) mmol/L Potassium 3.6 (3.5-5.1) mmol/L Chloride 102 (98-107) mmol/L Carbon Dioxide 30 (22-30) mmol/L Anion Gap 9.6 (5-15) MEQ/L BUN 18 H (7-17) mg/dL Creatinine 0.79 (0.52-1.04) mg/dL Estimated GFR 79.4 ML/MIN Glucose 96 (74-106) mg/dL Calcium 9.0 (8.4-10.2) mg/dL Total Bilirubin 0.50 (0.2-1.3) mg/dL AST 23 (14-36) U/L ALT 18 (0-35) U/L Alkaline Phosphatase 94 (38-126) U/L Troponin I < 0.012 (0.000-0.034) ng/mL NT-Pro-B Natriuret Pep (<300) pg/mL Serum Total Protein 6.8 (6.3-8.2) g/dL Albumin 4.0 (3.5-5.0) g/dL Influenza Type A Ag (NEGATIVE) Influenza Type B Ag (NEGATIVE) RSV (PCR) (NEGATIVE) SARS-CoV-2 (PCR) (NEGATIVE) - Progress Progress: improved Air Movement: good Progress Note: Case discussed with Dr. Vilchis at 6 PM. D-dimer was not ordered. Because patient cannot get a VQ scan if positive. However we discussed the option of anticoagulating the patient now until obtaining a VQ scan. Dr. Vilchis advised to hold off on anticoagulation. He will order D-dimer on the floor and anticoagulate if positive. Patient reassessed. Patient ambulated in our ED. Patient's O2 sats dropped to 88%. The decision was made to admit patient. Plan of care discussed with patient. She agrees to admission to [facility] for further evaluation and treatment. Patient is a 72-year-old female history of COPD presents to our ED with complaints of shortness of breath and wheezing. Patient reports that she had a CT abdomen pelvis with contrast today. Patient cannot have a contrast load within this 24-hour period. Laboratory testing completed. No significant findings. CBC CMP essentially nonremarkable. BNP 900. Chest x-ray shows nonacute chest with chronic features. Viral panel negative. Patient treated with Solu-Medrol, DuoNeb, blood cultures obtained antibiotics administered. Patient received Rocephin and doxycycline antibiotic. Patient is allergic to macrolides. Azithromycin not administered. Complexity of problem addressed is high, threat to bodily function. Patient experiencing a significant COPD exacerbation with hypoxia, COPA (number of complexity of problem addressed) Minimal, Straight forward, one self limited or minor problem Low. Acute uncomplicated stable +/- admission, Any acute or chronic illness, 2 or more self-limited or minor problems. Moderate. Acute, complicated or with systemic illness. Chronic illness with exacerbation, New diagnosis with uncertain prognosis. 2 or more chronic stable illnesses. High. Any severe exacerbation or threat to bodily function, Any treatment side effects Complex of data reviewed and analyzed is extensive. Test ordered test reviewed. Results analyzed and correlated clinically. Management discussed with hospitalist who agrees to admission to [facility] for further evaluation and treatment. Risk of complication and or risk of morbidity/mortality of patient management is high. Patient received nebulizer Christelle. Patient requires hospitalization for further evaluation and treatment. Vital stable. Time spent admit patient approximately 20 minutes. Plan of care established for shared decision making. Portions of this note were created with voice recognition technology. There may be grammatical, spelling, punctuation or sound alike errors 01/23/23 18:19 Blood Culture(s) Obtained: Yes Antibiotics given: Yes Discussed with : Nasra (Case discussed with Dr. Vilchis at 6 PM) Counseled pt/family regarding: lab results, diagnosis, rad results - Departure Departure Disposition: Observation Clinical Impression: COPD exacerbation, Hypoxia Condition: Stable Critical Care Time: No Referrals: SKYLER CEJA NP [Primary Care Provider] - Follow up/PCP as directed Instructions: Chronic Obstructive Pulmonary Disease
[2023-01-23 16:53] LABS: Absolute Neutrophil Ct (ANC) 3.86 x10^3/uL (1.4-6.9); BASOPHIL % 0.6 % (0.0-0.4); Basophil (Absolute #) 0.04 x10^3/uL (0-0.4); Eosinophil % 2.9 % (0.00-5.0); Eosinophil (Absolute #) 0.19 x10^3/uL (0-0.5); Hematocrit 39.1 % (35-47); Hemoglobin 12.3 g/dL (12.0-16.0); IMMATURE GRAN # 0.02 x10^3u/L (0.00-0.03); IMMATURE GRAN % 0.3 % (0.00-0.4); Lymphocyte (Absolute #) 1.72 x10^3/uL (1.0-4.6); Lymphocytes % 26.7 % (24.0-44.0); Mean Corpuscular Hemoglobin 28.9 pg (26-32); Mean Corpuscular Hgb Concent. 31.5 g/dL (32-36); Mean Platelet Volume 11.6 fL (7.5-11.0); Monocyte (Absolute #) 0.62 x10^3/uL (0.0-1.3); Monocytes % 9.6 % (0.0-12.0); Neutrophil % 59.9 % (36.0-66.0); Platelet Count 151 x10^3/uL (150-450); Red Blood Count 4.25 x10^6/uL (4.1-5.4); Red Cell Distribution Width 14.6 % (11.5-14.0); White Blood Count 6.5 x10^3/uL (4.0-10.5)
[2023-01-23 17:06] LABS: ANION GAP 9.6 MEQ/L (5-15); BILIRUBIN,TOTAL 0.5 mg/dL (0.2-1.3); Creatinine 1 0.79 mg/dL (0.52-1.04); EST GLOMERULAR FILTRATION RATE 79.4 ML/MIN; Potassium 3.6 mmol/L (3.5-5.1); Total Protein 6.8 g/dL (6.3-8.2)
[2023-01-23] MEDS ORDERED: VIBRAMYCIN 100 MG IV ONE (17:07)
[2023-01-23] MEDS ORDERED: D5w 100ML Mini Bag 100 ML 100 ML IV ONE (17:07)
--- NOTE | 2023-01-23 17:11 | XRAY ---
Indication: Cough and short of breath. Comparison: July 25, 2022 Portable chest demonstrates stable bilateral perihilar suture material and left midlung subsegmental atelectasis/scarring. No focal infiltrate, consolidation, or large effusion. Heart not enlarged again with left pacemaker. Bony thorax intact again with osteopenia, mild degenerative changes, and mild dextroscoliosis. Impression: Continued nonacute chest with chronic features.
[2023-01-23 17:28] LABS: INFLUENZA A NEGATIVE (NEGATIVE); INFLUENZA B NEGATIVE (NEGATIVE); RESPIRATORY SYNCTIAL VIRUS NEGATIVE (NEGATIVE); SARS-CoV-2 Xpert Express NEGATIVE (NEGATIVE)
[2023-01-23] MEDS: Advair Hfa 115/21 Common canister IH SCH (18:55)
[2023-01-23] MEDS ORDERED: DUONEB 0.5-3 MG/3 ml Neb IH SCH (19:00)
--- NOTE | 2023-01-23 20:36 | PCM.HP ---
History of Present Illness - Chief Complaint Chief Complaint: COPD exacerbation, hypoxia History of Present Illness: is a 72 year old female. 72 yo wf with hx of COPD, Lung Ca(resection times 2)presents with a 1 day hx of cough and increased sob. Pt states she noted increased sob today with mild non-productive cough. Pt had sxs of diarrhea in prior 2-3 weeks(greenish). She states this is resolved for the most part but she had a CT this am to [facility]. She states it may have showed diverticulitis though no antibxs were prescribed. They also felt she may have a pneumonia. She could not get an appt thus she went to the ED. Pt was noted to have a COPD exac + ? pneumonia. She was admitted for treatment. - Review of Systems Constitutional: Fatigue, No Fever, No Chills Eyes: No Symptoms Ears, Nose, & Throat: No Symptoms Respiratory: Cough, Wheezing Cardiac: No Symptoms Abdominal/Gastrointestinal: Abdominal Pain, Diarrhea Genitourinary Symptoms: No Symptoms Musculoskeletal: No Symptoms Skin: No Symptoms Medications & Allergies Home Medications: Home Medication List Zolpidem Tartrate [Ambien] 10 mg PO HS 08/16/15 [History Confirmed 01/23/23] Rosuvastatin Calcium 5 mg PO QHS 05/29/21 [History Confirmed 01/23/23] Azelastine HCl 1 spray INTRANASAL HS 09/05/21 [History Confirmed 01/23/23] Budesonide/Glycopyr/Formoterol [Breztri Aerosphere Inhaler] 2 puffs IH BID 09/05/21 [History Confirmed 01/23/23] Montelukast Sodium 10 mg [Singulair 10 MG] 10 mg PO QHS 07/21/22 [History Confirmed 01/23/23] PARoxetine HCL [Paxil] 10 mg PO HS 07/21/22 [History Confirmed 01/23/23] Valsartan 80 mg PO BID 07/21/22 [History Confirmed 01/23/23] Albuterol/Ipratropium 3ml Neb* [DUONEB 0.5-3 MG/3 ml Neb] 3 ml IH Q6HPRN PRN #1 07/28/22 [Rx Confirmed 01/23/23] Fexofenadine HCl [Sonia Allergy] 180 mg PO HS 01/23/23 [History Confirmed 01/23/23] Omeprazole 40 mg PO DAILY 01/23/23 [History Confirmed 01/23/23] Allergies/Adverse Reactions: Allergies Allergy/AdvReac Type Severity Reaction Status Date / Time clarithromycin [From Biaxin] Allergy Severe Hives Verified 01/23/23 18:49 Coconut Allergy Severe Difficulty Verified 01/23/23 18:49 Breathing green dye *RETIRED-07/03/12 Allergy Mild Swelling Verified 01/23/23 18:49 [Green Dye] red dye [Red Dye] Allergy Mild Swelling Verified 01/23/23 18:49 adhesive Allergy Rash Verified 01/23/23 18:49 cholestyramine Allergy Verified 01/23/23 18:49 iodine Allergy Wheezing Verified 01/23/23 18:49 latex Allergy Rash Verified 01/23/23 18:49 nitrofurantoin Allergy Verified 01/23/23 18:49 [From Macrobid] levofloxacin [From Levaquin] AdvReac Mild Joint Aches Verified 01/23/23 18:49 - Past Medical History Past Medical History: Yes Neurological History: No Pertinent History ENT History: Cataracts Cardiac History: Arrhythmia, Other Respiratory History: COPD, Other Endocrine Medical History: Diabetes Type II, Other Musculoskelatal History: Osteoarthritis GI Medical History: Diverticulitis, Gallbladder Disease, Pancreatitis History: No Pertinent History Pyscho-Social History: Depression Reproductive Disorders: No Pertinent History Comment: bruised liver, kidney disease in the past, seasonal allergies, lung ca - Past Surgical History Past Surgical History: Yes Neuro Surgical History: No Pertinent History Cardiac History: Pacemaker Respiratory Surgery: Lobectomy GI Surgical History: Appendectomy, Cholecystectomy, Hernia Repair Genitourinary Surgical Hx: No Pertinent History Musculskeletal Surgical Hx: No Pertinent History, Joint Replacement, Orthopedic Surgery Female Surgical History: Hysterectomy, Other Other Surgical History: tonsilectomy, carpal tunnel, trigger finger X3, BLADDER SLING, colorectal, SI fusion, left wedge resection to lungs July 16, 2020, PACEMAKER 2022 - Social History Smoking Status: Former smoker How long have you smoked: 20 years Exposure to second hand smoke: No Alcohol: None Drug Use: none - Physical Exam Vital Signs: Vital Signs - 24 hr Temp Pulse Resp BP Pulse Ox 01/23/23 20:00 98.1 F 75 16 187/83 93 L 01/23/23 18:50 75 16 93 L 01/23/23 18:47 98.1 F 66 20 187/83 95 01/23/23 18:30 95 01/23/23 18:24 98 01/23/23 18:20 70 22 157/55 94 L 01/23/23 17:19 66 20 138/73 96 01/23/23 16:40 61 20 98 01/23/23 16:26 98 01/23/23 16:22 97.1 F 60 25 H 141/60 98 General Appearance: no apparent distress Neurologic Exam: alert, 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, cooperative Eye Exam: PERRL/EOMI, eyes nml inspection Ears, Nose, Throat Exam: normal ENT inspection Neck Exam: normal inspection, non-tender Respiratory Exam: diminished breath sounds, wheezing Cardiovascular Exam: regular rate/rhythm, normal heart sounds Gastrointestinal/Abdomen Exam: soft, normal bowel sounds, No tenderness Skin Exam: normal color Lymphatic Exam: No adenopathy Results - Labs Lab/Micro Results: Lab Results-Last 24 Hours 01/23/23 01/23/23 01/23/23 Range/Units 16:20 16:20 16:24 WBC 6.5 (4.0-10.5) x10^3/uL RBC 4.25 (4.1-5.4) x10^6/uL Hgb 12.3 (12.0-16.0) g/dL Hct 39.1 (35-47) % MCV 92.0 (78-100) fL MCH 28.9 (26-32) pg MCHC 31.5 L (32-36) g/dL RDW 14.6 H (11.5-14.0) % Plt Count 151 (150-450) x10^3/uL MPV 11.6 H (7.5-11.0) fL Gran % 59.9 (36.0-66.0) % Immature Gran % (Auto) 0.3 (0.00-0.4) % Nucleat RBC Rel Count 0.0 (0.00-0.1) % Eos # (Auto) 0.19 (0-0.5) x10^3/uL Immature Gran # (Auto) 0.02 (0.00-0.03) x10^3u/L Absolute Lymphs (auto) 1.72 (1.0-4.6) x10^3/uL Absolute Monos (auto) 0.62 (0.0-1.3) x10^3/uL Absolute Nucleated RBC 0.00 (0.00-0.01) x10^3u/L Lymphocytes % 26.7 (24.0-44.0) % Monocytes % 9.6 (0.0-12.0) % Eosinophils % 2.9 (0.00-5.0) % Basophils % 0.6 (0.0-0.4) % Absolute Granulocytes 3.86 (1.4-6.9) x10^3/uL Basophils # 0.04 (0-0.4) x10^3/uL Sodium 138 (137-145) mmol/L Potassium 3.6 (3.5-5.1) mmol/L Chloride 102 (98-107) mmol/L Carbon Dioxide 30 (22-30) mmol/L Anion Gap 9.6 (5-15) MEQ/L BUN 18 H (7-17) mg/dL Creatinine 0.79 (0.52-1.04) mg/dL Estimated GFR 79.4 ML/MIN Glucose 96 (74-106) mg/dL Calcium 9.0 (8.4-10.2) mg/dL Total Bilirubin 0.50 (0.2-1.3) mg/dL AST 23 (14-36) U/L ALT 18 (0-35) U/L Alkaline Phosphatase 94 (38-126) U/L Troponin I < 0.012 (0.000-0.034) ng/mL NT-Pro-B Natriuret Pep (<300) pg/mL Serum Total Protein 6.8 (6.3-8.2) g/dL Albumin 4.0 (3.5-5.0) g/dL Influenza Type A Ag (NEGATIVE) Influenza Type B Ag (NEGATIVE) RSV (PCR) (NEGATIVE) SARS-CoV-2 (PCR) (NEGATIVE) 01/23/23 01/23/23 Range/Units 16:50 Unknown WBC (4.0-10.5) x10^3/uL RBC (4.1-5.4) x10^6/uL Hgb (12.0-16.0) g/dL Hct (35-47) % MCV (78-100) fL MCH (26-32) pg MCHC (32-36) g/dL RDW (11.5-14.0) % Plt Count (150-450) x10^3/uL MPV (7.5-11.0) fL Gran % (36.0-66.0) % Immature Gran % (Auto) (0.00-0.4) % Nucleat RBC Rel Count (0.00-0.1) % Eos # (Auto) (0-0.5) x10^3/uL Immature Gran # (Auto) (0.00-0.03) x10^3u/L Absolute Lymphs (auto) (1.0-4.6) x10^3/uL Absolute Monos (auto) (0.0-1.3) x10^3/uL Absolute Nucleated RBC (0.00-0.01) x10^3u/L Lymphocytes % (24.0-44.0) % Monocytes % (0.0-12.0) % Eosinophils % (0.00-5.0) % Basophils % (0.0-0.4) % Absolute Granulocytes (1.4-6.9) x10^3/uL Basophils # (0-0.4) x10^3/uL Sodium (137-145) mmol/L Potassium (3.5-5.1) mmol/L Chloride (98-107) mmol/L Carbon Dioxide (22-30) mmol/L Anion Gap (5-15) MEQ/L BUN (7-17) mg/dL Creatinine (0.52-1.04) mg/dL Estimated GFR ML/MIN Glucose (74-106) mg/dL Calcium (8.4-10.2) mg/dL Total Bilirubin (0.2-1.3) mg/dL AST (14-36) U/L ALT (0-35) U/L Alkaline Phosphatase (38-126) U/L Troponin I (0.000-0.034) ng/mL NT-Pro-B Natriuret Pep 962 (<300) pg/mL Serum Total Protein (6.3-8.2) g/dL Albumin (3.5-5.0) g/dL Influenza Type A Ag NEGATIVE (NEGATIVE) Influenza Type B Ag NEGATIVE (NEGATIVE) RSV (PCR) NEGATIVE (NEGATIVE) SARS-CoV-2 (PCR) NEGATIVE (NEGATIVE) - Radiology Impressions Radiology Exams & Impressions: Radiology Procedures Category Date Time Status CHEST 1 VIEW (PORTABLE) Stat Exams 01/23/23 16:24 Completed - Other Procedures and Tests Respiratory Therapy 01/23/23 16:39 Respiratory Therapy Assessment DAILY 01/23/23 18:45 Respiratory MDI BID Assessment/Plan (1) COPD exacerbation Current Visit: Yes Status: Acute Assessment & Plan: A/P 72 yo wf with hx of COPD, Lung Ca(s/p resection/cured) admitted with possible pneumonia + COPD exac. 1. COPD exac: continue nebs and IV steroids. Decent air exchange though diffusely wheezing. 2. CAP: ?. No distinct consolidation. ? Retrocardiac infiltrate + outpt CT showed infiltrate. Levaquin(pulm dose) ordered. 3. ? Diverticulitis: sxs better. Will need to f/u on CT from outpt. LEvaquin and flagyl ordered. 4. HTN: continue valsartan. 5. FEN: oral diet. 6. PX: Lovenox. Entire encounter done via telemedicine. Code(s): J44.1 - CHRONIC OBSTRUCTIVE PULMONARY DISEASE W (ACUTE) EXACERBATION Telemedicine Encounter - Telemedicine Encounter Telemedicine Encounter: The entirety of this encounter was performed via Telemedicine"
[2023-01-23] MEDS ORDERED: VIBRAMYCIN 100 MG*** 100 MG in Dextrose 5%/Water IV Soln. 100ML PLUS BAG 100 ML IV SCH (22:00)
[2023-01-23] MEDS ORDERED: VALSARTAN 40 MG PO SCH (22:00)
[2023-01-23] MEDS ORDERED: NON-FORMULARY ITEM (Rosuvastatin Calcium [Rosuvastatin Calcium] 5 MG Tablet) PO SCH (22:00)
[2023-01-23] MEDS ORDERED: PUMP INTRANASAL SCH (22:00)
[2023-01-23] MEDS ORDERED: NON-FORMULARY ITEM (Paroxetine Hcl [Paxil] 10 MG Tablet) PO SCH (22:00)
[2023-01-23] MEDS ORDERED: NON-FORMULARY ITEM (Fexofenadine Hcl [Allegra Allergy] 180 MG Tablet) PO SCH (22:00)
[2023-01-23] MEDS ORDERED: AZELASTINE HCL 205.5 MCG/0.137 ML INTRANASAL SCH (22:00)
[2023-01-23] MEDS ORDERED: DIOVAN 80 MG ONE (22:11)
[2023-01-23] MEDS ORDERED: Paxil 20 MG ONE (22:11)
[2023-01-23] MEDS ORDERED: ASTELIN NASAL ONE (22:12)
[2023-01-23] MEDS: Ambien 10 MG PO SCH (22:53)
[2023-01-23] MEDS: Flagyl 500 MG PO SCH (22:54)
[2023-01-23] MEDS: solu-MEDROL 40 MG, Sterile H2O 10 ml 1 ML IV SCH ×2 (22:55)
[2023-01-23] MEDS: HUMALOG SQ PRN (22:56)
[2023-01-23] MEDS: DUONEB 0.5-3 MG/3 ml Neb IH SCH (23:23)
[2023-01-24] MEDS ORDERED: Robitussin-Dm Syrup PO PRN (00:11)
[2023-01-24 02:19] LABS: BASOPHIL % 0.1 % (0.0-0.4); Basophil (Absolute #) 0.01 x10^3/uL (0-0.4); Eosinophil (Absolute #) 0 x10^3/uL (0-0.5); Hematocrit 36.3 % (35-47); Hemoglobin 11.4 g/dL (12.0-16.0); IMMATURE GRAN # 0.03 x10^3u/L (0.00-0.03); IMMATURE GRAN % 0.4 % (0.00-0.4); Lymphocyte (Absolute #) 0.29 x10^3/uL (1.0-4.6); Lymphocytes % 3.6 % (24.0-44.0); Mean Cell Volume 91.9 fL (78-100); Mean Corpuscular Hemoglobin 28.9 pg (26-32); Mean Corpuscular Hgb Concent. 31.4 g/dL (32-36); Mean Platelet Volume 12.3 fL (7.5-11.0); Monocyte (Absolute #) 0.06 x10^3/uL (0.0-1.3); Monocytes % 0.8 % (0.0-12.0); Neutrophil % 95.1 % (36.0-66.0); Platelet Count 143 x10^3/uL (150-450); Red Blood Count 3.95 x10^6/uL (4.1-5.4); Red Cell Distribution Width 14.4 % (11.5-14.0)
[2023-01-24 02:40] LABS: ANION GAP 12.4 MEQ/L (5-15); Calcium 8.6 mg/dL (8.4-10.2); Creatinine 1 0.63 mg/dL (0.52-1.04); EST GLOMERULAR FILTRATION RATE 94.2 ML/MIN; Potassium 3.5 mmol/L (3.5-5.1)
[2023-01-24] MEDS: DUONEB 0.5-3 MG/3 ml Neb IH SCH ×6 (03:13→22:56)
--- NOTE | 2023-01-24 05:16 | PCM.NOTE ---
Date and Time: 01/24/23 0509 Subjective Assessment: HPI: 72 yo wf with hx of COPD (RA at baseline), Lung Ca(resection times 2)presents with a 1 day hx of cough and increased sob, states she was out of her nebulizer solution at home. CXR showed non acute chest. Patient states CT was done outpt showing LLL opacities, new borderline cardiomegaly, and diverticulosis. Patient states she just finished a course of Flagyl as OP and has GI follow up on 02-14-23. Admitted for COPD exacerbation/CAP. Wheezing upon arrival. Currently being treated with solumedrol/DuoNebs/levaquin/Flagyl/doxy. 01/24/23: Met with patient bedside. Endorses continued shortness of breath, wheezing and CRO cough. On exam lung sounds are coarse throughout with exp wheezing. State she does feel that she has improved since admission. Patient with multiple allergies, states she is allergic to levaquin, will dc and change to ceftriaxone. Denies fever, cp, abdominal pain, MORA, dizziness, N/V/D. - Review of Systems Constitutional: No Symptoms Eyes: No Symptoms Ears, Nose, & Throat: No Symptoms Respiratory: Cough, Short Of Breath, Wheezing Cardiac: No Symptoms Abdominal/Gastrointestinal: No Symptoms Genitourinary Symptoms: No Symptoms Musculoskeletal: No Symptoms Skin: No Symptoms Neurological: No Symptoms Psychological: No Symptoms Endocrine: No Symptoms Hematologic/Lymphatic: No Symptoms Immunological/Allergic: No Symptoms Objective Exam General Appearance: no apparent distress Neurologic Exam: alert, 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, cooperative Skin Exam: normal color Eye Exam: PERRL Ears, Nose, Throat Exam: normal ENT inspection Neck Exam: normal inspection Respiratory Exam: crackles/rales, wheezing Cardiovascular Exam: regular rate/rhythm, normal heart sounds Gastrointestinal/Abdomen Exam: soft, normal bowel sounds Extremity Exam: normal inspection Back Exam: normal inspection OBJECTIVE DATA Vital Signs: Vital Signs - 24 hr Temp Pulse Resp BP Pulse Ox 01/24/23 04:00 84 19 91 L 01/24/23 03:14 74 20 95 01/24/23 00:00 97.9 F 86 25 H 130/71 95 01/23/23 23:23 74 18 92 L 01/23/23 20:21 98.1 F 66 20 187/83 95 01/23/23 20:00 98.1 F 75 16 187/83 93 L 11/14/23 18:50 75 16 93 L 01/23/23 18:47 98.1 F 66 20 187/83 95 01/23/23 18:30 95 01/23/23 18:24 98 01/23/23 18:20 70 22 157/55 94 L 01/23/23 17:19 66 20 138/73 96 01/23/23 16:40 61 20 98 01/23/23 16:26 98 01/23/23 16:22 97.1 F 60 25 H 141/60 98 Pain Assessment - Last Documented Pain Intensity 0 Intake and Output: Intake & Output 01/21/23 01/22/23 01/23/23 01/24/23 11:59 11:59 11:59 11:59 Weight 115.8 kg Lab Results: Lab Results-Last 24 Hours 01/23/23 01/23/23 01/23/23 Range/Units 16:20 16:20 16:24 WBC 6.5 (4.0-10.5) x10^3/uL RBC 4.25 (4.1-5.4) x10^6/uL Hgb 12.3 (12.0-16.0) g/dL Hct 39.1 (35-47) % MCV 92.0 (78-100) fL MCH 28.9 (26-32) pg MCHC 31.5 L (32-36) g/dL RDW 14.6 H (11.5-14.0) % Plt Count 151 (150-450) x10^3/uL MPV 11.6 H (7.5-11.0) fL Gran % 59.9 (36.0-66.0) % Immature Gran % (Auto) 0.3 (0.00-0.4) % Nucleat RBC Rel Count 0.0 (0.00-0.1) % Eos # (Auto) 0.19 (0-0.5) x10^3/uL Immature Gran # (Auto) 0.02 (0.00-0.03) x10^3u/L Absolute Lymphs (auto) 1.72 (1.0-4.6) x10^3/uL Absolute Monos (auto) 0.62 (0.0-1.3) x10^3/uL Absolute Nucleated RBC 0.00 (0.00-0.01) x10^3u/L Lymphocytes % 26.7 (24.0-44.0) % Monocytes % 9.6 (0.0-12.0) % Eosinophils % 2.9 (0.00-5.0) % Basophils % 0.6 (0.0-0.4) % Absolute Granulocytes 3.86 (1.4-6.9) x10^3/uL Basophils # 0.04 (0-0.4) x10^3/uL Sodium 138 (137-145) mmol/L Potassium 3.6 (3.5-5.1) mmol/L Chloride 102 (98-107) mmol/L Carbon Dioxide 30 (22-30) mmol/L Anion Gap 9.6 (5-15) MEQ/L BUN 18 H (7-17) mg/dL Creatinine 0.79 (0.52-1.04) mg/dL Estimated GFR 79.4 ML/MIN Glucose 96 (74-106) mg/dL POC Glucometer (74 to 106) mg/dL Calcium 9.0 (8.4-10.2) mg/dL Total Bilirubin 0.50 (0.2-1.3) mg/dL AST 23 (14-36) U/L ALT 18 (0-35) U/L Alkaline Phosphatase 94 (38-126) U/L Troponin I < 0.012 (0.000-0.034) ng/mL NT-Pro-B Natriuret Pep (<300) pg/mL Serum Total Protein 6.8 (6.3-8.2) g/dL Albumin 4.0 (3.5-5.0) g/dL Influenza Type A Ag (NEGATIVE) Influenza Type B Ag (NEGATIVE) RSV (PCR) (NEGATIVE) SARS-CoV-2 (PCR) (NEGATIVE) 01/23/23 01/23/23 01/23/23 Range/Units 16:50 20:25 20:47 WBC (4.0-10.5) x10^3/uL RBC (4.1-5.4) x10^6/uL Hgb (12.0-16.0) g/dL Hct (35-47) % MCV (78-100) fL MCH (26-32) pg MCHC (32-36) g/dL RDW (11.5-14.0) % Plt Count (150-450) x10^3/uL MPV (7.5-11.0) fL Gran % (36.0-66.0) % Immature Gran % (Auto) (0.00-0.4) % Nucleat RBC Rel Count (0.00-0.1) % Eos # (Auto) (0-0.5) x10^3/uL Immature Gran # (Auto) (0.00-0.03) x10^3u/L Absolute Lymphs (auto) (1.0-4.6) x10^3/uL Absolute Monos (auto) (0.0-1.3) x10^3/uL Absolute Nucleated RBC (0.00-0.01) x10^3u/L Lymphocytes % (24.0-44.0) % Monocytes % (0.0-12.0) % Eosinophils % (0.00-5.0) % Basophils % (0.0-0.4) % Absolute Granulocytes (1.4-6.9) x10^3/uL Basophils # (0-0.4) x10^3/uL Sodium (137-145) mmol/L Potassium (3.5-5.1) mmol/L Chloride (98-107) mmol/L Carbon Dioxide (22-30) mmol/L Anion Gap (5-15) MEQ/L BUN (7-17) mg/dL Creatinine (0.52-1.04) mg/dL Estimated GFR ML/MIN Glucose (74-106) mg/dL POC Glucometer 244 H (74 to 106) mg/dL Calcium (8.4-10.2) mg/dL Total Bilirubin (0.2-1.3) mg/dL AST (14-36) U/L ALT (0-35) U/L Alkaline Phosphatase (38-126) U/L Troponin I < 0.012 (0.000-0.034) ng/mL NT-Pro-B Natriuret Pep (<300) pg/mL Serum Total Protein (6.3-8.2) g/dL Albumin (3.5-5.0) g/dL Influenza Type A Ag NEGATIVE (NEGATIVE) Influenza Type B Ag NEGATIVE (NEGATIVE) RSV (PCR) NEGATIVE (NEGATIVE) SARS-CoV-2 (PCR) NEGATIVE (NEGATIVE) 01/23/23 01/24/23 01/24/23 Range/Units Unknown 02:17 02:17 WBC (4.0-10.5) x10^3/uL RBC (4.1-5.4) x10^6/uL Hgb (12.0-16.0) g/dL Hct (35-47) % MCV (78-100) fL MCH (26-32) pg MCHC (32-36) g/dL RDW (11.5-14.0) % Plt Count (150-450) x10^3/uL MPV (7.5-11.0) fL Gran % (36.0-66.0) % Immature Gran % (Auto) (0.00-0.4) % Nucleat RBC Rel Count (0.00-0.1) % Eos # (Auto) (0-0.5) x10^3/uL Immature Gran # (Auto) (0.00-0.03) x10^3u/L Absolute Lymphs (auto) (1.0-4.6) x10^3/uL Absolute Monos (auto) (0.0-1.3) x10^3/uL Absolute Nucleated RBC (0.00-0.01) x10^3u/L Lymphocytes % (24.0-44.0) % Monocytes % (0.0-12.0) % Eosinophils % (0.00-5.0) % Basophils % (0.0-0.4) % Absolute Granulocytes (1.4-6.9) x10^3/uL Basophils # (0-0.4) x10^3/uL Sodium 137 (137-145) mmol/L Potassium 3.5 (3.5-5.1) mmol/L Chloride 104 (98-107) mmol/L Carbon Dioxide 24 (22-30) mmol/L Anion Gap 12.4 (5-15) MEQ/L BUN 23 H (7-17) mg/dL Creatinine 0.63 (0.52-1.04) mg/dL Estimated GFR 94.2 ML/MIN Glucose 177 H (74-106) mg/dL POC Glucometer (74 to 106) mg/dL Calcium 8.6 (8.4-10.2) mg/dL Total Bilirubin (0.2-1.3) mg/dL AST (14-36) U/L ALT (0-35) U/L Alkaline Phosphatase (38-126) U/L Troponin I < 0.012 (0.000-0.034) ng/mL NT-Pro-B Natriuret Pep 962 (<300) pg/mL Serum Total Protein (6.3-8.2) g/dL Albumin (3.5-5.0) g/dL Influenza Type A Ag (NEGATIVE) Influenza Type B Ag (NEGATIVE) RSV (PCR) (NEGATIVE) SARS-CoV-2 (PCR) (NEGATIVE) 01/24/23 Range/Units 02:17 WBC 8.0 (4.0-10.5) x10^3/uL RBC 3.95 L (4.1-5.4) x10^6/uL Hgb 11.4 L (12.0-16.0) g/dL Hct 36.3 (35-47) % MCV 91.9 (78-100) fL MCH 28.9 (26-32) pg MCHC 31.4 L (32-36) g/dL RDW 14.4 H (11.5-14.0) % Plt Count 143 L (150-450) x10^3/uL MPV 12.3 H (7.5-11.0) fL Gran % 95.1 H (36.0-66.0) % Immature Gran % (Auto) 0.4 (0.00-0.4) % Nucleat RBC Rel Count 0.0 (0.00-0.1) % Eos # (Auto) 0 (0-0.5) x10^3/uL Immature Gran # (Auto) 0.03 (0.00-0.03) x10^3u/L Absolute Lymphs (auto) 0.29 L (1.0-4.6) x10^3/uL Absolute Monos (auto) 0.06 (0.0-1.3) x10^3/uL Absolute Nucleated RBC 0.00 (0.00-0.01) x10^3u/L Lymphocytes % 3.6 L (24.0-44.0) % Monocytes % 0.8 (0.0-12.0) % Eosinophils % 0.0 (0.00-5.0) % Basophils % 0.1 (0.0-0.4) % Absolute Granulocytes 7.60 H (1.4-6.9) x10^3/uL Basophils # 0.01 (0-0.4) x10^3/uL Sodium (137-145) mmol/L Potassium (3.5-5.1) mmol/L Chloride (98-107) mmol/L Carbon Dioxide (22-30) mmol/L Anion Gap (5-15) MEQ/L BUN (7-17) mg/dL Creatinine (0.52-1.04) mg/dL Estimated GFR ML/MIN Glucose (74-106) mg/dL POC Glucometer (74 to 106) mg/dL Calcium (8.4-10.2) mg/dL Total Bilirubin (0.2-1.3) mg/dL AST (14-36) U/L ALT (0-35) U/L Alkaline Phosphatase (38-126) U/L Troponin I (0.000-0.034) ng/mL NT-Pro-B Natriuret Pep (<300) pg/mL Serum Total Protein (6.3-8.2) g/dL Albumin (3.5-5.0) g/dL Influenza Type A Ag (NEGATIVE) Influenza Type B Ag (NEGATIVE) RSV (PCR) (NEGATIVE) SARS-CoV-2 (PCR) (NEGATIVE) Radiology Exams: Radiology Procedures Category Date Time Status CHEST 1 VIEW (PORTABLE) Stat Exams 01/23/23 16:24 Completed Assessment/Plan (1) COPD exacerbation Current Visit: Yes Status: Acute Assessment & Plan: 01/23: -continue nebs and IV steroids. Decent air exchange though diffusely wheezing. 01/23: -Continue IV solu-medrol/nebs/inh -RT consult -Levaquin d/cd due to allergy will start ceftriaxone -Supplemental oxygen to maintain spo2 >92% -RA at baseline, remains on RA at this time Code(s): J44.1 - CHRONIC OBSTRUCTIVE PULMONARY DISEASE W (ACUTE) EXACERBATION (2) Hypoxia Current Visit: Yes Status: Acute Assessment & Plan: -see copd Code(s): R09.02 - HYPOXEMIA (3) History of diverticulitis Current Visit: No Status: Acute Assessment & Plan: -Diverticulosis on CT from 01/23/23. Patient states she finished course of F lagyl 2 days ago per PCP, GI Follow up on 02/14/23 Code(s): Z87.19 - PERSONAL HISTORY OF OTHER DISEASES OF THE DIGESTIVE SYSTEM (4) Hx of cancer of lung Current Visit: No Status: Acute Assessment & Plan: -Has had Right lobectomy Code(s): Z85.118 - PERSONAL HISTORY OF MALIGNANT NEOPLASM OF BRONCHUS AND LUNG (5) Type 2 diabetes mellitus Current Visit: No Status: Chronic Qualifiers: Diabetes mellitus chcf insulin use: without chcf use Diabetes mellitus complication status: without complication Qualified Code(s): E11.9 - Type 2 diabetes mellitus without complications Assessment & Plan: -ada diet -a1c -SSI VTE lovenox PPI: Protonix Dispo: possible d/c tomorrow
[2023-01-24] MEDS ORDERED: solu-MEDROL ONE ×3 (05:46→22:02)
[2023-01-24] MEDS: solu-MEDROL 40 MG, Sterile H2O 10 ml 1 ML IV SCH ×6 (05:50→22:35)
[2023-01-24 06:09] LABS: Absolute Neutrophil Ct (ANC) 6.15 x10^3/uL (1.4-6.9); Basophil (Absolute #) 0 x10^3/uL (0-0.4); Eosinophil % 0.2 % (0.00-5.0); Eosinophil (Absolute #) 0.01 x10^3/uL (0-0.5); Hematocrit 37.2 % (35-47); IMMATURE GRAN # 0.01 x10^3u/L (0.00-0.03); IMMATURE GRAN % 0.2 % (0.00-0.4); Lymphocyte (Absolute #) 0.32 x10^3/uL (1.0-4.6); Lymphocytes % 4.9 % (24.0-44.0); Mean Cell Volume 90.1 fL (78-100); Mean Corpuscular Hemoglobin 29.1 pg (26-32); Mean Corpuscular Hgb Concent. 32.3 g/dL (32-36); Mean Platelet Volume 11.7 fL (7.5-11.0); Monocyte (Absolute #) 0.03 x10^3/uL (0.0-1.3); Monocytes % 0.5 % (0.0-12.0); Neutrophil % 94.2 % (36.0-66.0); Platelet Count 145 x10^3/uL (150-450); Red Blood Count 4.13 x10^6/uL (4.1-5.4); Red Cell Distribution Width 14.7 % (11.5-14.0); White Blood Count 6.5 x10^3/uL (4.0-10.5)
[2023-01-24 06:23] LABS: ALBUMIN 3.9 g/dL (3.5-5.0); ANION GAP 15.2 MEQ/L (5-15); BILIRUBIN,TOTAL 0.4 mg/dL (0.2-1.3); Calcium 8.8 mg/dL (8.4-10.2); Creatinine 1 0.63 mg/dL (0.52-1.04); EST GLOMERULAR FILTRATION RATE 94.2 ML/MIN; Potassium 3.8 mmol/L (3.5-5.1); Total Protein 6.6 g/dL (6.3-8.2)
[2023-01-24] MEDS: Advair Hfa 115/21 Common canister IH SCH ×2 (06:50→19:06)
[2023-01-24 08:07] LABS: Slide Review 1 YES
[2023-01-24] MEDS: DIOVAN 80 MG PO SCH ×2 (09:49→22:34)
[2023-01-24] MEDS: ENOXAPARIN SODIUM SQ SCH (09:49)
[2023-01-24] MEDS: Flagyl 500 MG PO SCH ×2 (09:49→09:53)
[2023-01-24] MEDS: Mucinex 600MG ER Tabs PO SCH ×2 (09:49→22:35)
[2023-01-24] MEDS: Protonix 40MG Tablet PO SCH (09:49)
[2023-01-24] MEDS: HYDROCODONE-CHLORPHEN ER SUSP PO PRN ×2 (09:50→22:33)
[2023-01-24] MEDS ORDERED: VIBRAMYCIN 100 MG*** 100 MG in Sodium Chloride 100ML MINI-BAG PLUS 100 ML IV SCH (10:00)
[2023-01-24] MEDS: LEVOFLOXACIN 750MG/150ML D5W 750 MG/150 ML BAG IV SCH ×2 (11:12→11:28)
[2023-01-24] MEDS: HUMALOG SQ PRN ×3 (11:52→22:36)
[2023-01-24] MEDS: ROCEPHIN 1 Gm-D5w 50 ml Bag** 1 G/50 ML IVPB IV SCH (11:53)
[2023-01-24] MEDS: TYLENOL 325 MG PO PRN ×2 (13:10→19:48)
[2023-01-24] MEDS ORDERED: ASTELIN NASAL INTRANASAL SCH (22:00)
[2023-01-24] MEDS ORDERED: CLARITIN 10 MG PO SCH (22:00)
[2023-01-24] MEDS ORDERED: Zocor 10MG PO SCH (22:00)
[2023-01-24] MEDS ORDERED: Paxil 20 MG PO SCH (22:00)
[2023-01-24] MEDS: Ambien 10 MG PO SCH (22:35)
[2023-01-25] MEDS: DUONEB 0.5-3 MG/3 ml Neb IH SCH ×3 (03:06→11:02)
[2023-01-25 05:03] LABS: Absolute Neutrophil Ct (ANC) 9.31 x10^3/uL (1.4-6.9); BASOPHIL % 0.1 % (0.0-0.4); Basophil (Absolute #) 0.01 x10^3/uL (0-0.4); Eosinophil (Absolute #) 0 x10^3/uL (0-0.5); Hematocrit 33.7 % (35-47); Hemoglobin 11.1 g/dL (12.0-16.0); IMMATURE GRAN # 0.05 x10^3u/L (0.00-0.03); IMMATURE GRAN % 0.5 % (0.00-0.4); Lymphocyte (Absolute #) 0.38 x10^3/uL (1.0-4.6); Lymphocytes % 3.8 % (24.0-44.0); Mean Cell Volume 88.7 fL (78-100); Mean Corpuscular Hemoglobin 29.2 pg (26-32); Mean Corpuscular Hgb Concent. 32.9 g/dL (32-36); Mean Platelet Volume 11.8 fL (7.5-11.0); Monocyte (Absolute #) 0.33 x10^3/uL (0.0-1.3); Monocytes % 3.3 % (0.0-12.0); Neutrophil % 92.3 % (36.0-66.0); Platelet Count 144 x10^3/uL (150-450); Red Cell Distribution Width 15.2 % (11.5-14.0); White Blood Count 10.1 x10^3/uL (4.0-10.5)
[2023-01-25 05:07] LABS: ALBUMIN 3.5 g/dL (3.5-5.0); ANION GAP 9.7 MEQ/L (5-15); BILIRUBIN,TOTAL 0.4 mg/dL (0.2-1.3); Calcium 8.7 mg/dL (8.4-10.2); Creatinine 1 0.7 mg/dL (0.52-1.04); EST GLOMERULAR FILTRATION RATE 91.8 ML/MIN; Potassium 3.2 mmol/L (3.5-5.1); Total Protein 6.1 g/dL (6.3-8.2)
[2023-01-25 06:01] LABS: Slide Review 1 YES
[2023-01-25] MEDS ORDERED: solu-MEDROL ONE (06:14)
[2023-01-25] MEDS: solu-MEDROL 40 MG, Sterile H2O 10 ml 1 ML IV SCH ×2 (06:21)
[2023-01-25] MEDS: TYLENOL 325 MG PO PRN (06:28)
[2023-01-25] MEDS: Advair Hfa 115/21 Common canister IH SCH (06:36)
[2023-01-25] MEDS: Klor Con PO SCH ×3 (07:59→11:55)
[2023-01-25] MEDS ORDERED: Vibramycin 100 MG PO SCH (08:00)
[2023-01-25] MEDS: HUMALOG SQ PRN ×2 (08:01→11:55)
--- NOTE | 2023-01-25 09:26 | PCM.DS ---
Discharge Summary Date of Admission: 01/23/23 18:26 Date of Discharge: 01/25/2023 Admitting Physician: ИВАН BAUER MD Primary Care Provider: SKYLER CEJA Allergies Allergies clarithromycin [From Biaxin] Allergy (Severe, Verified 01/23/23 18:49) Hives Coconut Allergy (Severe, Verified 01/23/23 18:49) Difficulty Breathing green dye *RETIRED-07/03/12 [Green Dye] Allergy (Mild, Verified 01/23/23 18:49) Swelling swelling ears red dye [Red Dye] Allergy (Mild, Verified 01/23/23 18:49) Swelling ears swell adhesive Allergy (Verified 01/23/23 18:49) Rash cholestyramine Allergy (Verified 01/23/23 18:49) iodine Allergy (Verified 01/23/23 18:49) Wheezing latex Allergy (Verified 01/23/23 18:49) Rash nitrofurantoin [From Macrobid] Allergy (Verified 01/23/23 18:49) levofloxacin [From Levaquin] Adverse Reaction (Mild, Verified 01/23/23 18:49) [facility] Summary - Hospital Course Hospital Course: 72 yo wf with hx of COPD (RA at baseline), Lung Ca(resection times 2)presents with a 1 day hx of cough and increased sob, states she was out of her nebulizer solution at home. CXR showed non acute chest. Patient states CT was done outpt showing LLL opacities, new borderline cardiomegaly, and diverticulosis. Patient states she just finished a course of Flagyl as OP and has GI follow up on 02-14-23. Admitted for COPD exacerbation/CAP. Wheezing upon arrival. During hospital course treated with solumedrol/DuoNebs/ceftriaxone/doxy. Patient does follow with Dr. Martin (pulmonology) and has appt next week. She is requesting discharge home today. She is on RA. On exam Lung sounds have improved but still exp wheezing. Will send her home with prednisone 20mg bid x 5 days/Augmentin 875mg po bid x 5 days/doxycycline 100mg po bid x 5days. Will also refill her Duonebs. Patient states she has bronchodilator at home. New Diagnosis: COPD exac/pneumonia New Medications: Doxycycline/ Augmentin/prednisone/duoneb (refill) Follow Up: pcp/pulm Latest Assessment & Plan 01/23: -continue nebs and IV steroids. Decent air exchange though diffusely wheezing. 01/23: -Continue IV solu-medrol/nebs/inh -RT consult -Leválvaro d/cd due to allergy will start ceftriaxone -Supplemental oxygen to maintain spo2 >92% -RA at baseline, remains on RA at this time Code(s): J44.1 - CHRONIC OBSTRUCTIVE PULMONARY DISEASE W (ACUTE) EXACERBATION (2) Hypoxia Current Visit: Yes Status: Acute Assessment & Plan: -see copd Code(s): R09.02 - HYPOXEMIA (3) History of diverticulitis Current Visit: No Status: Acute Assessment & Plan: -Diverticulosis on CT from 01/23/23. Patient states she finished course of Flagyl 2 days ago per PCP, GI Follow up on 02/14/23 Code(s): Z87.19 - PERSONAL HISTORY OF OTHER DISEASES OF THE DIGESTIVE SYSTEM (4) Hx of cancer of lung Current Visit: No Status: Acute Assessment & Plan: -Has had Right lobectomy Code(s): Z85.118 - PERSONAL HISTORY OF MALIGNANT NEOPLASM OF BRONCHUS AND LUNG (5) Type 2 diabetes mellitus Current Visit: No Status: Chronic Qualifiers: Diabetes mellitus ocean transportation intermediary insulin use: without ocean transportation intermediary use Diabetes mellitus complication status: without complication Qualified Code(s): E11.9 - Type 2 diabetes mellitus without complications Assessment & Plan: -ada diet -a1c -SSI I spent 35 minutes [id number] with the patient on the day of discharge performing discharge exam, discussing hospital stay and discharge instructions with patient and caregivers, preparation of discharge records, prescriptions & referral forms and addressing any questions/concerns the patient had as documented above. - Vitals & Intake/Output Vital Signs: Vital Signs Temperature 97.6 F 01/25/23 06:49 Pulse Rate 76 01/25/23 06:49 Respiratory Rate 16 01/25/23 06:49 Blood Pressure 136/59 01/25/23 06:49 O2 Sat by Pulse Oximetry 95 01/25/23 06:49 Intake & Output: Intake & Output 01/22/23 01/23/23 01/24/23 01/25/23 11:59 11:59 11:59 11:59 Intake Total 240 2800 Balance 240 2800 Weight 115.8 kg - Lab Result Diagrams: 01/25/23 04:45 01/25/23 10:25 Lab Results-Last 24 Hrs: Lab Results-Last 24 Hours 01/24/23 01/24/23 01/24/23 Range/Units 05:00 11:42 16:31 WBC (4.0-10.5) x10^3/uL RBC (4.1-5.4) x10^6/uL Hgb (12.0-16.0) g/dL Hct (35-47) % MCV (78-100) fL MCH (26-32) pg MCHC (32-36) g/dL RDW (11.5-14.0) % Plt Count (150-450) x10^3/uL MPV (7.5-11.0) fL Gran % (36.0-66.0) % Immature Gran % (Auto) (0.00-0.4) % Nucleat RBC Rel Count (0.00-0.1) % Eos # (Auto) (0-0.5) x10^3/uL Immature Gran # (Auto) (0.00-0.03) x10^3u/L Absolute Lymphs (auto) (1.0-4.6) x10^3/uL Absolute Monos (auto) (0.0-1.3) x10^3/uL Absolute Nucleated RBC (0.00-0.01) x10^3u/L Lymphocytes % (24.0-44.0) % Monocytes % (0.0-12.0) % Eosinophils % (0.00-5.0) % Basophils % (0.0-0.4) % Absolute Granulocytes (1.4-6.9) x10^3/uL Basophils # (0-0.4) x10^3/uL Sodium (137-145) mmol/L Potassium (3.5-5.1) mmol/L Chloride (98-107) mmol/L Carbon Dioxide (22-30) mmol/L Anion Gap (5-15) MEQ/L BUN (7-17) mg/dL Creatinine (0.52-1.04) mg/dL Estimated GFR ML/MIN Glucose (74-106) mg/dL POC Glucometer 195 H 191 H (74 to 106) mg/dL Hemoglobin A1c 6.13 H (4.5-6.0) % Calcium (8.4-10.2) mg/dL Magnesium (1.6-2.3) mg/dL Total Bilirubin (0.2-1.3) mg/dL AST (14-36) U/L ALT (0-35) U/L Alkaline Phosphatase (38-126) U/L Serum Total Protein (6.3-8.2) g/dL Albumin (3.5-5.0) g/dL Slides for Path Review 01/24/23 01/25/23 01/25/23 Range/Units 20:41 04:45 04:45 WBC 10.1 (4.0-10.5) x10^3/uL RBC 3.80 L (4.1-5.4) x10^6/uL Hgb 11.1 L (12.0-16.0) g/dL Hct 33.7 L (35-47) % MCV 88.7 (78-100) fL MCH 29.2 (26-32) pg MCHC 32.9 (32-36) g/dL RDW 15.2 H (11.5-14.0) % Plt Count 144 L (150-450) x10^3/uL MPV 11.8 H (7.5-11.0) fL Gran % 92.3 H (36.0-66.0) % Immature Gran % (Auto) 0.5 H (0.00-0.4) % Nucleat RBC Rel Count 0.0 (0.00-0.1) % Eos # (Auto) 0 (0-0.5) x10^3/uL Immature Gran # (Auto) 0.05 H (0.00-0.03) x10^3u/L Absolute Lymphs (auto) 0.38 L (1.0-4.6) x10^3/uL Absolute Monos (auto) 0.33 (0.0-1.3) x10^3/uL Absolute Nucleated RBC 0.00 (0.00-0.01) x10^3u/L Lymphocytes % 3.8 L (24.0-44.0) % Monocytes % 3.3 (0.0-12.0) % Eosinophils % 0.0 (0.00-5.0) % Basophils % 0.1 (0.0-0.4) % Absolute Granulocytes 9.31 H (1.4-6.9) x10^3/uL Basophils # 0.01 (0-0.4) x10^3/uL Sodium 135 L (137-145) mmol/L Potassium 3.2 L (3.5-5.1) mmol/L Chloride 104 (98-107) mmol/L Carbon Dioxide 25 (22-30) mmol/L Anion Gap 9.7 (5-15) MEQ/L BUN 19 H (7-17) mg/dL Creatinine 0.70 (0.52-1.04) mg/dL Estimated GFR 91.8 ML/MIN Glucose 189 H (74-106) mg/dL POC Glucometer 220 H (74 to 106) mg/dL Hemoglobin A1c (4.5-6.0) % Calcium 8.7 (8.4-10.2) mg/dL Magnesium (1.6-2.3) mg/dL Total Bilirubin 0.40 (0.2-1.3) mg/dL AST 17 (14-36) U/L ALT 17 (0-35) U/L Alkaline Phosphatase 68 (38-126) U/L Serum Total Protein 6.1 L (6.3-8.2) g/dL Albumin 3.5 (3.5-5.0) g/dL Slides for Path Review YES 01/25/23 01/25/23 Range/Units 04:45 07:20 WBC (4.0-10.5) x10^3/uL RBC (4.1-5.4) x10^6/uL Hgb (12.0-16.0) g/dL Hct (35-47) % MCV (78-100) fL MCH (26-32) pg MCHC (32-36) g/dL RDW (11.5-14.0) % Plt Count (150-450) x10^3/uL MPV (7.5-11.0) fL Gran % (36.0-66.0) % Immature Gran % (Auto) (0.00-0.4) % Nucleat RBC Rel Count (0.00-0.1) % Eos # (Auto) (0-0.5) x10^3/uL Immature Gran # (Auto) (0.00-0.03) x10^3u/L Absolute Lymphs (auto) (1.0-4.6) x10^3/uL Absolute Monos (auto) (0.0-1.3) x10^3/uL Absolute Nucleated RBC (0.00-0.01) x10^3u/L Lymphocytes % (24.0-44.0) % Monocytes % (0.0-12.0) % Eosinophils % (0.00-5.0) % Basophils % (0.0-0.4) % Absolute Granulocytes (1.4-6.9) x10^3/uL Basophils # (0-0.4) x10^3/uL Sodium (137-145) mmol/L Potassium (3.5-5.1) mmol/L Chloride (98-107) mmol/L Carbon Dioxide (22-30) mmol/L Anion Gap (5-15) MEQ/L BUN (7-17) mg/dL Creatinine (0.52-1.04) mg/dL Estimated GFR ML/MIN Glucose (74-106) mg/dL POC Glucometer 201 H (74 to 106) mg/dL Hemoglobin A1c (4.5-6.0) % Calcium (8.4-10.2) mg/dL Magnesium 2.0 (1.6-2.3) mg/dL Total Bilirubin (0.2-1.3) mg/dL AST (14-36) U/L ALT (0-35) U/L Alkaline Phosphatase (38-126) U/L Serum Total Protein (6.3-8.2) g/dL Albumin (3.5-5.0) g/dL Slides for Path Review Micro Results-Entire Visit: Microbiology 01/23/23 16:46 Blood Culture - Preliminary Blood 01/23/23 16:20 Blood Culture - Preliminary Blood Accuchecks Date 01/25/23 Date 01/24/23 Date 01/24/23 Date 01/24/23 Date 01/24/23 Time 07:39 Time 20:46 Time 20:46 Time 16:47 Time 12:05 - Radiology Exams Ordered Rad Exams-Entire Visit: Radiology Procedures Category Date Time Status CHEST 1 VIEW (PORTABLE) Stat Exams 01/23/23 16:24 Completed - Procedures and Test Procedures and Tests throughout Hospitalization: Therapy Orders & Screens 01/23/23 16:39 Respiratory Therapy Assessment DAILY Comment: 01/23/23 18:45 Respiratory MDI BID Comment: Diagnosis: COPD exacerbation, hypoxia Discharge Exam General Appearance: no apparent distress Neurologic Exam: alert, 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, cooperative Eye Exam: PERRL Ears, Nose, Throat Exam: normal ENT inspection Neck Exam: normal inspection Respiratory Exam: wheezing Cardiovascular Exam: regular rate/rhythm, normal heart sounds Gastrointestinal/Abdomen Exam: soft, normal bowel sounds Pelvic Exam: deferred Rectal Exam: deferred Back Exam: normal inspection Extremity Exam: normal inspection Skin Exam: normal color Final Diagnosis/Problem List - Final Discharge Diagnosis/Problem (1) COPD exacerbation Current Visit: Yes Status: Acute Code(s): J44.1 - CHRONIC OBSTRUCTIVE PULMONARY DISEASE W (ACUTE) EXACERBATION (2) Hypoxia Current Visit: Yes Status: Acute Code(s): R09.02 - HYPOXEMIA (3) History of diverticulitis Current Visit: No Status: Acute Code(s): Z87.19 - PERSONAL HISTORY OF OTHER DISEASES OF THE DIGESTIVE SYSTEM (4) Hx of cancer of lung Current Visit: No Status: Acute Code(s): Z85.118 - PERSONAL HISTORY OF MALIGNANT NEOPLASM OF BRONCHUS AND LUNG (5) Type 2 diabetes mellitus Current Visit: No Status: Chronic - Discharge Disposition: Home, Self-Care Condition: Stable Prescriptions: New Amox Tr/Potass Clav. 875 mg [Augmentin 875-125 Tablet] 1 each PO BID 5 Days #10 tablet Prednisone 20 mg [Deltasone 20 mg] 20 mg PO BID 5 Days #10 tablet Albuterol/Ipratropium 3ml Neb* [DUONEB 0.5-3 MG/3 ml Neb] 3 ml IH Q4HRT 30 Days #120 amp Guaifenesin 600 mg ER [Mucinex 600MG ER Tabs] 600 mg PO BID 7 Days #14 tablet Doxycycline Hyclate 100 mg [Vibramycin 100 MG] 100 mg PO BIDWMEALS 5 Days #10 tablet Continue Zolpidem Tartrate [Ambien] 10 mg PO HS Rosuvastatin Calcium 5 mg PO QHS Budesonide/Glycopyr/Formoterol [Breztri Aerosphere Inhaler] 2 puffs IH BID Azelastine HCl 1 spray INTRANASAL HS Valsartan 80 mg PO BID Montelukast Sodium 10 mg [Singulair 10 MG] 10 mg PO QHS PARoxetine HCL [Paxil] 10 mg PO HS Fexofenadine HCl [Sonia Allergy] 180 mg PO HS Omeprazole 40 mg PO DAILY Discontinued Albuterol/Ipratropium 3ml Neb* [DUONEB 0.5-3 MG/3 ml Neb] 3 ml IH Q6HPRN PRN #1 PRN Reason: SHORTNESS OF BREATH Follow up with: WENDY WILLS NP [NON-STAFF Y W/O PRIVILEGES] - 01/31/23 10:30 am
[2023-01-25] MEDS: Protonix 40MG Tablet PO SCH (09:52)
[2023-01-25] MEDS: DIOVAN 80 MG PO SCH (09:53)
[2023-01-25] MEDS: ROCEPHIN 1 Gm-D5w 50 ml Bag** 1 G/50 ML IVPB IV SCH (09:53)
[2023-01-25] MEDS: Mucinex 600MG ER Tabs PO SCH (09:53)
[2023-01-25] MEDS: ENOXAPARIN SODIUM SQ SCH (09:53)
[2023-01-25 12:05] VITALS: BP 108/52; PULSE 77; RESP 16; TEMP 97.3; O2SAT 97
== END 2023-01-25 12:39 | disposition home or self-care (01) ==
LOC: ED 16:13 → MED SURG 18:26
PROVIDERS: ADMIT Internal Medicine; ATTEND Internal Medicine
DX: J44.1 Chronic obstructive pulmonary disease with (acute) exacerbation (principal); R09.02 Hypoxemia; E11.9 Type 2 diabetes mellitus without complications; I10 Essential (primary) hypertension; Z85.118 Personal history of other malignant neoplasm of bronchus and lung; Z79.899 Other long term (current) drug therapy; Z20.828 Contact with and (suspected) exposure to other viral communicable diseases; Z87.19 Personal history of other diseases of the digestive system
CPT/HCPCS: 0241U; 36000; 36415; 71045; 80048; 80053; 82947; 83036; 83735; 83880; 84132; 84484; 85025; 87040; 93005; 93041; 93268; 94640; 94760; 94762; 96365; 96374; 99285; G0378; Q3014; J0456; J0696; J1650; J1817; J1956; J2920; J2930; A9270-GY

== ENCOUNTER 2023-02-15 11:56 | Emergency (ER) | payer MEDICARE, OTHER ==
[2023-02-15 12:11] VITALS: BP 161/83; PULSE 65; RESP 14; TEMP 98.4; O2SAT 98
[2023-02-15] MEDS ORDERED: BENADRYL 50 MG/ML IV ONE (12:41)
[2023-02-15] MEDS ORDERED: TYLENOL 325 MG PO ONE (12:41)
[2023-02-15] MEDS ORDERED: SUBLIMAZE 100 MCG/2 ML IV ONE (12:41)
[2023-02-15] MEDS ORDERED: Reglan 10 MG/2 ML IV ONE (12:41)
--- NOTE | 2023-02-15 13:25 | XRAY ---
Indication: Headache and nausea. High blood pressure. Multiple contiguous axial images obtained through the head without contrast. Comparison: February 09, 2019 Again age-appropriate global atrophy and minimal periventricular degenerative micro-ischemia. Also grossly stable bilateral basal ganglia remote infarcts versus prominent perivascular spaces. No acute intracranial hemorrhage, abnormal extra-axial fluid collection, or mass effect. Fourth ventricle is midline without hydrocephalus. Bony calvarium intact. Visualized paranasal sinuses and mastoid air cells are clear. Impression: Again normal aging brain with chronic features. No new/acute intracranial abnormalities.
[2023-02-15] MEDS ORDERED: BENADRYL 50 MG/ML ONE (13:29)
[2023-02-15] MEDS ORDERED: TYLENOL 325 MG ONE (13:30)
[2023-02-15] MEDS ORDERED: SUBLIMAZE 100 MCG/2 ML ONE (13:30)
[2023-02-15] MEDS ORDERED: Reglan 10 MG/2 ML ONE (13:31)
[2023-02-15 13:46] LABS: INFLUENZA A NEGATIVE (NEGATIVE); INFLUENZA B NEGATIVE (NEGATIVE); RESPIRATORY SYNCTIAL VIRUS NEGATIVE (NEGATIVE); SARS-CoV-2 Xpert Express NEGATIVE (NEGATIVE)
[2023-02-15] MEDS ORDERED: TORAdol 30 mg Injection IV ONE (14:09)
[2023-02-15] MEDS ORDERED: TORAdol 30 mg Injection ONE (14:23)
--- NOTE | 2023-02-15 14:43 | ERPHSYRPT ---
- History of Present Illness Time Seen by Provider: 02/15/23 12:06 Source: patient Exam Limitations: no limitations Patient Subjective Stated Complaint: HEADACHE Triage Nursing Assessment: PT REPORTS TO ER WITH COMPLAINTS OF SEVERE HEADACHE WITH LIGHT SENSITIVITY. PATIENT REPORTS THAT THIS HEADACHE STARTING AROUND 0400 THIS MORNING AND HAS NOT LET UP. PATIENT DENIES TAKING ANY OVER THE COUNTER PAIN MEDICATION. PATIENT ALSO REPORTS NAUSEA SINCE YESTERDAY MORNING WHEN SHE LAST CONSUMED FOOD. PATIENT REPORTS THAT SHE TOOK 1 ZOFRAN PO THIS MORNING AROUND 0800. 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 BLOOD PRESSURE AT THIS TIME 161/83. PATIENT TEARFUL AND RATING PAIN 9/10. Physician History: 72 years old female with history of hypertension, hyperlipidemia, diabetes mellitus presented in the ER with chief complaint of right-sided headache waking her up from sleep around 4 AM. Patient reports sharp throbbing headache with no significant aggravating or relieving factors except for sitting in dark room and partial relief with taking [id number] pain medications. Reports associated nausea but no vomiting. No fever or chills reported. Denies any neck pain. Denies associated numbness tingling or focal weakness. No visual disturbance. Denies pain in the eyeball itself. Denies history of migraines. No chest pain palpitations or shortness of breath reported. No abdominal pain. Allergies/Adverse Reactions: clarithromycin [From Biaxin] Allergy (Severe, Verified 02/15/23 12:05) Hives Coconut Allergy (Severe, Verified 02/15/23 12:05) Difficulty Breathing green dye *RETIRED-07/03/12 [Green Dye] Allergy (Mild, Verified 02/15/23 12:05) Swelling swelling ears red dye [Red Dye] Allergy (Mild, Verified 02/15/23 12:05) Swelling ears swell adhesive Allergy (Verified 02/15/23 12:05) Rash cholestyramine Allergy (Verified 02/15/23 12:05) iodine Allergy (Verified 02/15/23 12:05) Wheezing latex Allergy (Verified 02/15/23 12:05) Rash nitrofurantoin [From Macrobid] Allergy (Verified 02/15/23 12:05) levofloxacin [From Levaquin] Adverse Reaction (Mild, Verified 02/15/23 12:05) Joint Aches Home Medications: Zolpidem Tartrate [Ambien] 10 mg PO HS 08/16/15 [History] Rosuvastatin Calcium 5 mg PO QHS 05/29/21 [History] Azelastine HCl 1 spray INTRANASAL HS 09/05/21 [History] Budesonide/Glycopyr/Formoterol [Breztri Aerosphere Inhaler] 2 puffs IH BID 09/05/21 [History] Valsartan 80 mg PO BID 07/21/22 [History] Fexofenadine HCl [Sonia Allergy] 180 mg PO HS 01/23/23 [History] Albuterol 2.5 mg/0.5 ml [PROVENTIL Solution 2.5 MG/0.5 ML] 0.5 ml IH Q6H PRN 02/15/23 [History] Benzonatate 100 mg PO DAILY 02/15/23 [History] Biotin 1,000 mcg PO DAILY 02/15/23 [History] Cholestyramine Light 4 gm [QUESTRAN Light 4 GM Packet] 4 gm PO DAILY 02/15/23 [History] Diphenoxylate HCl/Atropine [Diphenoxylate-Atrop 2.5-0.025] 1 tab PO BID 02/15/23 [History] Esomeprazole Magnesium 40 mg PO DAILY 02/15/23 [History] Furosemide 20 mg [Lasix 20 mg] 20 mg PO DAILY 02/15/23 [History] Insulin Lispro [Insulin Lispro Kwikpen U-100] 1 unit SQ ACHS 02/15/23 [History] Montelukast Sodium 10 mg [Singulair 10 MG] 0.5 tab PO DAILY 02/15/23 [History] Hx Tetanus, Diphtheria Vaccination/Date Given: No Hx Influenza Vaccination/Date Given: Yes Hx Pneumococcal Vaccination/Date Given: Yes Travel Risk - International Travel Have you traveled outside of the country in past 3 weeks: No - Coronavirus Screening Are you exhibiting any of the following symptoms?: No Close contact with a COVID-19 positive Pt in past 14-21 Days: No - Vaccine Status Have you recieved a Covid-19 vaccination: Yes Community 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 - Vaccination Dates Dates if Unknown: UNKNOWN - Review of Systems Constitutional: No Symptoms Eyes: No Symptoms Ears, Nose, & Throat: No Symptoms Respiratory: No Symptoms Cardiac: No Symptoms Abdominal/Gastrointestinal: Nausea Genitourinary Symptoms: No Symptoms Musculoskeletal: No Symptoms Skin: No Symptoms Neurological: Headache Endocrine: No Symptoms Hematologic/Lymphatic: No Symptoms Immunological/Allergic: No Symptoms - Past Medical History Pertinent Past Medical History: Yes Neurological History: No Pertinent History ENT History: Cataracts Cardiac History: Arrhythmia, Other Respiratory History: COPD, Other Endocrine Medical History: Diabetes Type II, Other Musculoskeletal History: Osteoarthritis GI Medical History: Diverticulitis, Gallbladder Disease, Pancreatitis History: No Pertinent History Psycho-Social History: Depression Female Reproductive Disorders: No Pertinent History Other Medical History: bruised liver, kidney disease in the past, seasonal allergies, lung ca - Past Surgical History Past Surgical History: Yes Neuro Surgical History: No Pertinent History Cardiac: Pacemaker Respiratory: Lobectomy Gastrointestinal: Appendectomy, Cholecystectomy, Hernia Repair Genitourinary: No Pertinent History Musculoskeletal: No Pertinent History, Joint Replacement, Orthopedic Surgery Female Surgical History: Hysterectomy, Other Other Surgical History: tonsilectomy, carpal tunnel, trigger finger X3, BLADDER SLING, colorectal, SI fusion, left wedge resection to lungs July 16, 2020, PACEMAKER 2022 - Social History Smoking Status: Former smoker How long have you smoked: 20 years Exposure to second hand smoke: No Drug Use: none Patient Lives Alone: Yes - Nursing Vital Signs Nursing Vital Signs: Initial Vital Signs Temperature 98.4 F 02/15/23 12:10 Pulse Rate 65 02/15/23 12:10 Respiratory Rate 14 02/15/23 12:10 Blood Pressure 161/83 02/15/23 12:10 O2 Sat by Pulse Oximetry 98 02/15/23 12:10 Pain Scale Pain Intensity 2 - Physical Exam General Appearance: no apparent distress, alert Eye Exam: PERRL/EOMI, eyes nml inspection Ears, Nose, Throat Exam: normal ENT inspection, TMs normal, pharynx normal, moist mucous membranes Neck Exam: normal inspection, non-tender, supple, full range of motion, No meningismus Respiratory Exam: normal breath sounds, lungs clear Cardiovascular Exam: regular rate/rhythm, normal heart sounds Gastrointestinal/Abdominal Exam: soft, normal bowel sounds, No tenderness Back Exam: normal inspection, normal range of motion, vertebral tenderness Extremity Exam: normal inspection, normal range of motion Mental Status Exam: alert, 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, 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 Exam: normal hearing, normal speech, PERRL Coordination/Gait Exam: normal finger to nose, normal gait, normal cerebellar function, negative Romberg's sign Motor/Sensory Exam: no motor deficit, no sensory deficit, no pronator drift, negative Babinski's sign DTR Exam: bicep (R): 2+, bicep (L): 2+, knee (R): 2+, knee (L): 2+ Skin Exam: normal color SpO2 Interpretation: normal SpO2: 98 O2 Delivery: Room Air Ordered Tests: Active Orders 24 hr Category Date Time Status IV Insertion STAT Care 02/15/23 12:41 Completed HEAD WITHOUT CONTRAST [CT] Stat Exams 02/15/23 12:39 Completed Medication Summary Discontinued Medications Generic Name Dose Route Start Last Admin Trade Name Meche PRN Reason Stop Dose Admin 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 975 mg 02/15/23 12:41 02/15/23 13:33 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 325 Mg Tablet PO 02/15/23 12:42 975 mg STAT ONE Administration 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 Confirm 02/15/23 13:30 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 325 Mg Tablet Administered 02/15/23 13:31 Dose 975 mg .ROUTE .STK-MED ONE Diphenhydramine HCl 25 mg 02/15/23 12:41 02/15/23 13:39 Diphenhydramine Hcl 50 Mg/Ml Vial IV 02/15/23 12:42 25 mg STAT ONE Administration Diphenhydramine HCl Confirm 02/15/23 13:29 Diphenhydramine Hcl 50 Mg/Ml Vial Administered 02/15/23 13:30 Dose 50 mg .ROUTE .STK-MED ONE Fentanyl Citrate 50 mcg 02/15/23 12:41 02/15/23 13:36 Fentanyl Citrate 100 Mcg/2 Ml* Vial IV 02/15/23 12:42 50 mcg STAT ONE Administration Fentanyl Citrate Confirm 02/15/23 13:30 Fentanyl Citrate 100 Mcg/2 Ml* Vial Administered 02/15/23 13:31 Dose 100 mcg .ROUTE .STK-MED ONE Ketorolac Tromethamine 30 mg 02/15/23 14:09 02/15/23 14:26 Ketorolac Tromethamine 30 Mg/Ml Inj IV 02/15/23 14:10 30 mg STAT ONE Administration Ketorolac Tromethamine Confirm 02/15/23 14:23 Ketorolac Tromethamine 30 Mg/Ml Inj Administered 02/15/23 14:24 Dose 30 mg .ROUTE .STK-MED ONE Metoclopramide HCl 10 mg 02/15/23 12:41 02/15/23 13:41 Metoclopramide Hcl 10 Mg/2 Ml Vial IV 02/15/23 12:42 10 mg STAT ONE Administration Metoclopramide HCl Confirm 02/15/23 13:31 Metoclopramide Hcl 10 Mg/2 Ml Vial Administered 02/15/23 13:32 Dose 10 mg .ROUTE .STK-MED ONE Lab/Rad Data: Laboratory Results 02/15/23 Range/Units 13:00 Influenza Type A Ag NEGATIVE (NEGATIVE) Influenza Type B Ag NEGATIVE (NEGATIVE) RSV (PCR) NEGATIVE (NEGATIVE) SARS-CoV-2 (PCR) NEGATIVE (NEGATIVE) - Progress Progress: improved, re-examined Air Movement: good Progress Note: 02/15/23 14:41 72 years old female with history of hypertension, hyperlipidemia, diabetes mellitus presented in the ER with chief complaint of right-sided headache waking her up from sleep around 4 AM. Patient reports sharp throbbing headache with no significant aggravating or relieving factors except for sitting in dark room and partial relief with taking [id number] pain medications. Reports associated nausea but no vomiting. No fever or chills reported. Denies any neck pain. Denies associated numbness tingling or focal weakness. No visual disturbance. Denies pain in the eyeball itself. Denies history of migraines. No chest pain palpitations or shortness of breath reported. No abdominal pain. Patient has nonfocal neuroexam throughout her stay in the ER. No signs of meningismus. Afebrile. Has negative COVID-19. Obtained CT head without contr ast which is negative for any acute findings. Given migraine cocktail, on reevaluation she is feeling better and wants to go home. Patient blood pressure is still in 170s, taking valsartan 80 mg, recommended monitoring and keeping a log with outpatient follow-up. Discussed signs symptoms of worsening needing return to ER which she seems understanding. Stable for discharge. Blood Culture(s) Obtained: No Antibiotics given: No Counseled pt/family regarding: diagnosis, need for follow-up, rad results Medical Desision Making - Diagnostic Testing Diagnostic test were ordered, analyzed, and reviewed by me: Yes Radiological Interpretation: Reviewed by me - Departure Departure Disposition: Home Clinical Impression: Headache Condition: Stable Critical Care Time: No Referrals: SKYLER CEJA, NABEEL [Primary Care Provider] - Follow up with PCP 1 day Instructions: Headache, Adult (DC) Additional Instructions: Take Tylenol as needed. Follow-up with primary care for reevaluation. Return to ER for intractable headache, numbness tingling focal weakness, visual disturbance, difficulty speech etc. monitor your blood pressure regularly, keep a log and follow-up with primary care for reevaluation to see if needs adjustment in dose of medications.
== END 2023-02-15 14:57 | disposition home or self-care (01) ==
LOC: ED 11:56
DX: R51.9 Headache, unspecified (principal); E11.9 Type 2 diabetes mellitus without complications; Z79.4 Long term (current) use of insulin; Z79.899 Other long term (current) drug therapy; Z20.828 Contact with and (suspected) exposure to other viral communicable diseases
CPT/HCPCS: 0241U; 36000; 70450; 96374; 96375; 99284; J1200; J1885; J3010; A9270-GY

== ENCOUNTER 2023-03-29 05:03 | Observation (INO) | payer MEDICARE, OTHER ==
[2023-03-29] MEDS ORDERED: PROVENTIL 2.5 MG/3 ML NEB IH ONE ×2 (05:18→05:36)
[2023-03-29] MEDS ORDERED: Sodium Chloride 0.9% 1000 ML 1,000 ML IV STA (05:18)
[2023-03-29] MEDS ORDERED: solu-MEDROL 125 MG, Sterile H2O 10 ml 2 ML IV ONE ×2 (05:18)
[2023-03-29] MEDS ORDERED: ROCEPHIN 1 Gm-D5w 50 ml Bag** 1 G/50 ML IVPB IV STA (05:18)
--- NOTE | 2023-03-29 05:22 | ERPHSYRPT ---
- History of Present Illness Time Seen by Provider: 03/29/23 05:12 Source: patient Exam Limitations: no limitations Patient Subjective Stated Complaint: Pt states "I have had a horrible cough and shortness of breath since sunday and it just seems to be getting worse." Triage Nursing Assessment: Pt presented alert and oriented X 3, skin pwd. PT ambulates with an upright steady gait, able to speak in clear raspy sentences Pt has coarse cough occasionally Physician History: For the past 4 days pt has had a sore throat and cough productive of green phlegm; for the past 3 days nausea and fever up to 103 degrees; since last night a frontal headache; this AM oxygen saturation of 82% at home with shortness of air. Allergies/Adverse Reactions: clarithromycin [From Biaxin] Allergy (Severe, Verified 02/15/23 12:05) Hives Coconut Allergy (Severe, Verified 02/15/23 12:05) Difficulty Breathing green dye *RETIRED-07/03/12 [Green Dye] Allergy (Mild, Verified 02/15/23 12:05) Swelling swelling ears red dye [Red Dye] Allergy (Mild, Verified 02/15/23 12:05) Swelling ears swell adhesive Allergy (Verified 02/15/23 12:05) Rash cholestyramine Allergy (Verified 02/15/23 12:05) iodine Allergy (Verified 02/15/23 12:05) Wheezing latex Allergy (Verified 02/15/23 12:05) Rash nitrofurantoin [From Macrobid] Allergy (Verified 02/15/23 12:05) levofloxacin [From Levaquin] Adverse Reaction (Mild, Verified 02/15/23 12:05) Joint Aches Home Medications: Zolpidem Tartrate [Ambien] 10 mg PO HS 08/16/15 [History] Rosuvastatin Calcium 5 mg PO QHS 05/29/21 [History] Azelastine HCl 1 spray INTRANASAL HS 09/05/21 [History] Budesonide/Glycopyr/Formoterol [Breztri Aerosphere Inhaler] 2 puffs IH BID 09/05/21 [History] Valsartan 80 mg PO BID 07/21/22 [History] Fexofenadine HCl [Sonia Allergy] 180 mg PO HS 01/23/23 [History] Albuterol 2.5 mg/0.5 ml [PROVENTIL Solution 2.5 MG/0.5 ML] 0.5 ml IH Q6H PRN 02/15/23 [History] Benzonatate 100 mg PO DAILY 02/15/23 [History] Biotin 1,000 mcg PO DAILY 02/15/23 [History] Cholestyramine Light 4 gm [QUESTRAN Light 4 GM Packet] 4 gm PO DAILY 02/15/23 [History] Diphenoxylate HCl/Atropine [Diphenoxylate-Atrop 2.5-0.025] 1 tab PO BID 02/15/23 [History] Esomeprazole Magnesium 40 mg PO DAILY 02/15/23 [History] Furosemide 20 mg [Lasix 20 mg] 20 mg PO DAILY 02/15/23 [History] Insulin Lispro [Insulin Lispro Kwikpen U-100] 1 unit SQ ACHS 02/15/23 [History] Montelukast Sodium 10 mg [Singulair 10 MG] 0.5 tab PO DAILY 02/15/23 [History] Hx Tetanus, Diphtheria Vaccination/Date Given: No Hx Influenza Vaccination/Date Given: Yes Hx Pneumococcal Vaccination/Date Given: Yes Immunizations Up to Date: Yes Travel Risk - International Travel Have you traveled outside of the country in past 3 weeks: No - Coronavirus Screening Are you exhibiting any of the following symptoms?: Yes Symptoms: Fever, Cough: New Onset, Shortness of Breath, Headaches/Body Aches/Fatigue Close contact with a COVID-19 positive Pt in past 14-21 Days: No - Vaccine Status Have you recieved a Covid-19 vaccination: Yes Laboratory Asst: Unknown - Vaccination Dates Dates if Unknown: UNKNOWN - Review of Systems Constitutional: Fever Ears, Nose, & Throat: Throat Pain Respiratory: Cough, Dyspnea Abdominal/Gastrointestinal: Nausea, No Abdominal Pain, No Vomiting, No Diarrhea Neurological: Headache - Past Medical History Pertinent Past Medical History: Yes Neurological History: No Pertinent History ENT History: Cataracts Cardiac History: Arrhythmia, Other Respiratory History: COPD, Other Endocrine Medical History: Diabetes Type II, Other Musculoskeletal History: Osteoarthritis GI Medical History: Diverticulitis, Gallbladder Disease, Pancreatitis History: No Pertinent History Psycho-Social History: Depression Female Reproductive Disorders: No Pertinent History Other Medical History: bruised liver, kidney disease in the past, seasonal allergies, lung ca - Past Surgical History Past Surgical History: Yes Neuro Surgical History: No Pertinent History Cardiac: Pacemaker Respiratory: Lobectomy Gastrointestinal: Appendectomy, Cholecystectomy, Hernia Repair Genitourinary: No Pertinent History Musculoskeletal: No Pertinent History, Joint Replacement, Orthopedic Surgery Female Surgical History: Hysterectomy, Other Other Surgical History: tonsilectomy, carpal tunnel, trigger finger X3, BLADDER SLING, colorectal, SI fusion, left wedge resection to lungs July 16, 2020, PACEMAKER 2022 - Social History Smoking Status: Former smoker How long have you smoked: 20 years Exposure to second hand smoke: No Drug Use: none Patient Lives Alone: Yes - Nursing Vital Signs Nursing Vital Signs: Initial Vital Signs Temperature 98.2 F 03/29/23 05:04 Pulse Rate 96 H 03/29/23 05:04 Respiratory Rate 22 03/29/23 05:04 Blood Pressure 130/57 03/29/23 05:04 O2 Sat by Pulse Oximetry 97 03/29/23 05:04 Pain Scale Pain Intensity 4 - Physical Exam General Appearance: alert Eye Exam: PERRL/EOMI Ears, Nose, Throat Exam: hearing grossly normal, pharyngeal erythema (mild), No abnormal TM (R), No abnormal TM (L) Neck Exam: normal inspection Respiratory Exam: wheezing (diffuse mild expiratorey wheezing) Cardiovascular/Chest Exam: normal heart sounds Abdominal/Gastrointestinal Exam: normal bowel sounds Extremity Exam: No pedal edema Neurologic Exam: alert, cooperative Skin Exam: warm, dry, No cyanosis SpO2 Interpretation: normal SpO2: 97 O2 Delivery: Room Air - Course Nursing assessment & vital signs reviewed: Yes EKG Interpreted by Me: RATE (65), Other (QTc = 430; Paced rhythm; ventricular premature complex.) - Radiology Exams Chest X-ray Interpretation: Interpreted by me, Pneumonia Ordered Tests: Active Orders 24 hr Category Date Time Status Librarian Special Collections STAT Care 03/29/23 05:19 Active EKG-ER Only STAT Care 03/29/23 05:18 Active IV Insertion STAT Care 03/29/23 05:18 Active Oxygen-ED Only Nasal Cannula 2 lpm Care 03/29/23 05:18 Active CHEST 1 VIEW (PORTABLE) Stat Exams 03/29/23 05:19 Taken AMYLASE Stat Lab 03/29/23 05:30 Ordered BLOOD CULTURE Stat Lab 03/29/23 05:18 Ordered CBC W DIFF Stat Lab 03/29/23 05:18 Ordered CMP Stat Lab 03/29/23 05:18 Ordered CULTURE,SPUTUM Stat Lab 03/29/23 05:54 Ordered LIPASE Stat Lab 03/29/23 05:30 Ordered MAGNESIUM Stat Lab 03/29/23 05:18 Ordered TROPONIN Q4H Lab 03/29/23 05:30 Ordered TROPONIN Q4H Lab 03/29/23 09:30 Ordered TROPONIN Q4H Lab 03/29/23 13:30 Ordered VENOUS BLOOD GAS Stat Lab 03/29/23 05:50 Completed Respiratory Therapy Assessment DAILY RT 03/29/23 05:41 Active Medication Summary Generic Name Dose Route Start Last Admin Trade Name Freq PRN Reason Stop Dose Admin Sodium Chloride 1,000 mls @ 999 mls/hr 03/29/23 05:18 03/29/23 05:31 Sodium Chloride 0.9% 1000 Ml IV 03/29/23 06:18 999 mls/hr .Q1H1M STA Administration Discontinued Medications Generic Name Dose Route Start Last Admin Trade Name Freq PRN Reason Stop Dose Admin Albuterol Sulfate 2.5 mg 03/29/23 05:18 03/29/23 05:40 Albuterol Sulfate 2.5 Mg/3 Ml Neb IH 03/29/23 05:19 2.5 mg STAT ONE Administration Albuterol Sulfate Confirm 03/29/23 05:36 Albuterol Sulfate 2.5 Mg/3 Ml Neb Administered 03/29/23 05:37 Dose 2.5 mg IH .STK-MED ONE Methylprednisolone Sodium 0 mg 03/29/23 05:18 03/29/23 05:31 Succinate 125 mg/ Sterile IV 03/29/23 05:19 125 mg Water 2 ml STAT ONE Administration Ceftriaxone Sodium/Dextrose 1 g in 50 mls @ 100 mls/hr 03/29/23 05:18 03/29/23 05:45 Rocephin 1 Gm-D5w 50 Ml Bag IV 03/29/23 05:47 100 mls/hr STAT STA 100 mls/hr Administration Sodium Chloride Confirm 03/29/23 05:31 Sodium Chloride 0.9% 1000 Ml Administered 03/29/23 05:32 Dose 1,000 mls @ ud .ROUTE .STK-MED ONE Ceftriaxone Sodium/Dextrose Confirm 03/29/23 05:44 Rocephin 1 Gm-D5w 50 Ml Bag Administered 03/29/23 05:45 Dose 1 g in 50 mls @ ud IV .STK-MED ONE Methylprednisolone Sodium Succinate Confirm 03/29/23 05:30 Methylprednis Sod Succ 125 Mg/2 Ml Vial Administered 03/29/23 05:31 Dose 125 mg .ROUTE .STK-MED ONE Sterile Water Confirm 03/29/23 05:30 Water For Injection,Sterile 10 Ml Vial Administered 03/29/23 05:31 Dose 10 ml IJ .STK-MED ONE Lab/Rad Data: Laboratory Results 03/29/23 Range/Units 05:50 pO2/FiO2 Ratio 21.0 % VBG pH 7.49 H (7.32-7.42) VBG pCO2 at Pat Temp 35 L (42-55) mm/Hg VBG pO2 at Pat Temp 84 H (25-40) mm/Hg VBG HCO3 26.7 (22-28) meq/L VBG O2 Sat (Pratik) 97.1 (95-100) VBG Base Excess 3.4 H (-2.0-2.0) VBG Hemoglobin 11.9 VBG Carboxyhemoglobin 2.1 (0.0-6.9) % T HGB POC Potassium 3.7 (3.5-5.1) - Progress Progress: unchanged Discussed with Dr.: Other (Spoke with & discussed case with Dr. Dowling([id number]) - obs.) Counseled pt/family regarding: lab results, diagnosis, rad results Medical Desision Making - Discussion of managment Care discussed with:: hospitalist Agreed on:: Treatment plan Will see patient: in hospital - Diagnostic Testing Diagnostic test were ordered, analyzed, and reviewed by me: Yes Radiological Interpretation: Interpreted by me - Departure Clinical Impression: Pneumonia, COPD (chronic obstructive pulmonary disease), Diabetes Condition: Stable Critical Care Time: No Referrals: SKYLER CEJA NP [Primary Care Provider] - Follow up/PCP as directed Instructions: Chronic Obstructive Pulmonary Disease
[2023-03-29] MEDS ORDERED: solu-MEDROL ONE (05:30)
[2023-03-29] MEDS ORDERED: Sterile H2O 10 ml IJ ONE (05:30)
[2023-03-29] MEDS ORDERED: Sodium Chloride 0.9% 1000 ML 1,000 ML ONE (05:31)
[2023-03-29] MEDS ORDERED: ROCEPHIN 1 Gm-D5w 50 ml Bag** 1 G/50 ML IVPB IV ONE (05:44)
[2023-03-29 05:59] LABS: VBG BASE EXCESS 3.4 (-2.0-2.0); VBG CARBOXYHEMOGLOBIN 2.1 % T HGB (0.0-6.9); VBG HCO3- 26.7 meq/L (22-28); VBG HEMOGLOBIN 11.9; VBG O2 SATURATION 97.1 (95-100); VBG POTASSIUM 3.7 (3.5-5.1); VBG pH 7.49 (7.32-7.42)
[2023-03-29] MEDS ORDERED: Sodium Chloride 0.9% 1000 ML 1,000 ML IV SCH (06:15)
[2023-03-29 06:25] LABS: Absolute Neutrophil Ct (ANC) 5.03 x10^3/uL (1.4-6.9); BASOPHIL % 0.4 % (0.0-0.4); Basophil (Absolute #) 0.03 x10^3/uL (0-0.4); Eosinophil % 0.7 % (0.00-5.0); Eosinophil (Absolute #) 0.05 x10^3/uL (0-0.5); Hematocrit 35.2 % (35-47); Hemoglobin 11.3 g/dL (12.0-16.0); IMMATURE GRAN # 0.02 x10^3u/L (0.00-0.03); IMMATURE GRAN % 0.3 % (0.00-0.4); Lymphocyte (Absolute #) 0.87 x10^3/uL (1.0-4.6); Lymphocytes % 12.7 % (24.0-44.0); Mean Cell Volume 91.2 fL (78-100); Mean Corpuscular Hemoglobin 29.3 pg (26-32); Mean Corpuscular Hgb Concent. 32.1 g/dL (32-36); Mean Platelet Volume 11.6 fL (7.5-11.0); Monocyte (Absolute #) 0.83 x10^3/uL (0.0-1.3); Monocytes % 12.2 % (0.0-12.0); Neutrophil % 73.7 % (36.0-66.0); Platelet Count 150 x10^3/uL (150-450); Red Blood Count 3.86 x10^6/uL (4.1-5.4); Red Cell Distribution Width 13.8 % (11.5-14.0); White Blood Count 6.8 x10^3/uL (4.0-10.5)
[2023-03-29 06:43] LABS: ALBUMIN 3.6 g/dL (3.5-5.0); AMYLASE < 30 U/L (30-110); ANION GAP 9.2 MEQ/L (5-15); BILIRUBIN,TOTAL 1.1 mg/dL (0.2-1.3); Calcium 8.6 mg/dL (8.4-10.2); Creatinine 1 0.76 mg/dL (0.52-1.04); EST GLOMERULAR FILTRATION RATE 83.2 ML/MIN; LIPASE 55 U/L (23-300); MAGNESIUM 1.8 mg/dL (1.6-2.3); Potassium 3.4 mmol/L (3.5-5.1); Total Protein 6.3 g/dL (6.3-8.2)
[2023-03-29 07:08] LABS: INFLUENZA A NEGATIVE (NEGATIVE); INFLUENZA B NEGATIVE (NEGATIVE); RESPIRATORY SYNCTIAL VIRUS NEGATIVE (NEGATIVE); SARS-CoV-2 Xpert Express NEGATIVE (NEGATIVE)
--- NOTE | 2023-03-29 08:42 | XRAY ---
Indication: Fever and cough. Comparison: January 23, 2023 Portable apical lordotic chest unchanged again demonstrating bilateral perihilar suture material and left midlung subsegmental atelectasis/scarring. No focal infiltrate, consolidation, or large effusion. Heart not enlarged again with left dual-lead pacemaker. Bony thorax intact again with osteopenia, degenerative changes, and scoliosis. Impression: Continued nonacute chest with chronic features.
[2023-03-29] MEDS ORDERED: Tessalon Perles 100 MG PO PRN (09:36)
[2023-03-29] MEDS ORDERED: Lomotil PO PRN (09:36)
[2023-03-29] MEDS ORDERED: ZOFRAN ODT 4 MG PO PRN (09:36)
[2023-03-29] MEDS: PROVENTIL 2.5 MG/3 ML NEB IH SCH ×3 (09:43→18:46)
[2023-03-29] MEDS ORDERED: PROVENTIL 2.5 MG/3 ML NEB IH PRN (09:56)
[2023-03-29] MEDS ORDERED: NON-FORMULARY ITEM (Budesonide/Glycopyr/Formoterol [Breztri Aerosphere Inhaler] 10.7 GM Hf IH SCH (10:00)
[2023-03-29] MEDS: LASIX 20 MG PO SCH (10:52)
[2023-03-29] MEDS: Protonix 40MG Tablet PO SCH (10:52)
[2023-03-29] MEDS: DIOVAN 80 MG PO SCH ×2 (10:52→22:27)
[2023-03-29] MEDS: Advair Hfa 115/21 Common canister IH SCH ×2 (11:53→18:50)
[2023-03-29] MEDS: HUMALOG SQ PRN ×3 (12:38→22:27)
[2023-03-29] MEDS: Robitussin-Dm Syrup PO PRN ×2 (13:32→22:36)
--- NOTE | 2023-03-29 14:44 | PCM.HP ---
History of Present Illness - Chief Complaint Chief Complaint: Pneumonia; Dyspnea Date: 03/29/23 History of Present Illness: is a 72 year old female with PMHX of cataracts, arrthmia, COPD, type II DM, OA, Diverticulitis, Pancreatitis, depression, pacemaker, lung cancer with wedge resection in 2020. Pt came into the ER last night she explained for the past 4 days she has had a sore throat and cough productive of green phlegm. Thenfor the past 3 days nausea and fever up to 101 degrees. Since last night a frontal headache. This AM oxygen saturation of 82% at home with shortness of breath. She does have her own pulse ox at home d/t her COPD and lung CA hx. CXR was negative. she does have course lung sounds and will treat her for a COPD exacerbation. Will continue breathing txs, antibiotics and steriods. Pt asked that we do not give large doses of steriods as it makes her blood sugar our of control. She also explained she only wants to stay overnight and d/c tomorrow. She is currently RA @ 94%. She refused tele and cont pulse ox. She denies CP, Abd. pain, N/V/D. - Review of Systems Constitutional: Fever, No Chills Eyes: No Symptoms Ears, Nose, & Throat: No Symptoms Respiratory: Cough, Short Of Breath Cardiac: No Chest Pain, No Edema, No Syncope Abdominal/Gastrointestinal: No Abdominal Pain, No Nausea, No Vomiting, No Diarrhea Genitourinary Symptoms: No Dysuria Musculoskeletal: No Back Pain, No Neck Pain Skin: No Rash Neurological: No Dizziness, No Focal Weakness, No Sensory Changes Psychological: No Symptoms Endocrine: No Symptoms Hematologic/Lymphatic: No Symptoms Immunological/Allergic: No Symptoms Medications & Allergies Home Medications: Home Medication List Zolpidem Tartrate [Ambien] 10 mg PO HS 08/16/15 [History Confirmed 03/29/23] Rosuvastatin Calcium 5 mg PO QHS 05/29/21 [History Confirmed 03/29/23] Azelastine HCl 1 spray INTRANASAL HS 09/05/21 [History Confirmed 03/29/23] Budesonide/Glycopyr/Formoterol [Breztri Aerosphere Inhaler] 2 puffs IH BID 09/05/21 [History Confirmed 03/29/23] Fexofenadine HCl [Sonia Allergy] 180 mg PO HS 01/23/23 [History Confirmed 03/29/23] Albuterol 2.5 mg/0.5 ml [PROVENTIL Solution 2.5 MG/0.5 ML] 0.5 ml IH Q6H PRN 02/15/23 [History Confirmed 03/29/23] Benzonatate 100 mg PO TIDPRN PRN 02/15/23 [History Confirmed 03/29/23] Biotin 0 mcg PO HS 02/15/23 [History Confirmed 03/29/23] Diphenoxylate HCl/Atropine [Diphenoxylate-Atrop 2.5-0.025] 1 tab PO BIDPRN PRN 02/15/23 [History Confirmed 03/29/23] Esomeprazole Magnesium 40 mg PO QAM 02/15/23 [History Confirmed 03/29/23] Furosemide 20 mg [Lasix 20 mg] 20 mg PO DAILY 02/15/23 [History Confirmed 03/29/23] Insulin Lispro [Insulin Lispro Kwikpen U-100] 1 unit SQ ACHS 02/15/23 [History Confirmed 03/29/23] Metoprolol Succinate 25 mg Xl* [Toprol-Xl 25MG Tablets] 25 mg PO HS 03/29/23 [History Confirmed 03/29/23] Ondansetron [Ondansetron Odt ] 4 mg PO Q6HPRN PRN 03/29/23 [History Confirmed 03/29/23] Valsartan 160 mg PO BID 03/29/23 [History Confirmed 03/29/23] Allergies/Adverse Reactions: Allergies Allergy/AdvReac Type Severity Reaction Status Date / Time clarithromycin [From Biaxin] Allergy Severe Hives Verified 02/15/23 12:05 Coconut Allergy Severe Difficulty Verified 02/15/23 12:05 Breathing green dye *RETIRED-07/03/12 Allergy Mild Swelling Verified 02/15/23 12:05 [Green Dye] red dye [Red Dye] Allergy Mild Swelling Verified 02/15/23 12:05 adhesive Allergy Rash Verified 02/15/23 12:05 cholestyramine Allergy Verified 02/15/23 12:05 iodine Allergy Wheezing Verified 02/15/23 12:05 latex Allergy Rash Verified 02/15/23 12:05 nitrofurantoin Allergy Verified 02/15/23 12:05 [From Macrobid] levofloxacin [From Levaquin] AdvReac Mild Joint Aches Verified 02/15/23 12:05 - Past Medical History Past Medical History: Yes Neurological History: No Pertinent History ENT History: Cataracts Cardiac History: Arrhythmia, Other Respiratory History: COPD, Other Endocrine Medical History: Diabetes Type II, Other Musculoskelatal History: Osteoarthritis GI Medical History: Diverticulitis, Gallbladder Disease, Pancreatitis History: No Pertinent History Pyscho-Social History: Depression Reproductive Disorders: No Pertinent History Comment: bruised liver, kidney disease in the past, seasonal allergies, lung ca - Female History Hx Last Menstrual Period: POST Are you now?: No - Past Surgical History Past Surgical History: Yes Neuro Surgical History: No Pertinent History Cardiac History: Pacemaker Respiratory Surgery: Lobectomy GI Surgical History: Appendectomy, Cholecystectomy, Hernia Repair Genitourinary Surgical Hx: No Pertinent History Musculskeletal Surgical Hx: No Pertinent History, Joint Replacement, Orthopedic Surgery Female Surgical History: Hysterectomy, Other Other Surgical History: tonsilectomy, carpal tunnel, trigger finger X3, BLADDER SLING, colorectal, SI fusion, left wedge resection to lungs July 16, 2020, PACEMAKER 2022 - Social History Smoking Status: Former smoker How long have you smoked: 20 years Exposure to second hand smoke: No Alcohol: None Drug Use: none - Physical Exam Vital Signs: Vital Signs - 24 hr Temp Pulse Resp BP BP BP Pulse Ox 03/29/23 11:58 97.6 F 69 27 H 113/59 94 L 03/29/23 09:48 98.9 F 60 21 121/58 130/57 94 L 03/29/23 09:45 95 03/29/23 08:00 68 13 114/53 96 03/29/23 07:30 61 28 H 105/61 03/29/23 07:01 61 23 120/64 95 03/29/23 06:30 105 H 23 93/49 97 03/29/23 06:06 97 03/29/23 06:01 67 22 94/39 92 L 03/29/23 05:40 62 22 93 L 03/29/23 05:07 67 21 130/57 03/29/23 05:04 98.2 F 96 H 22 130/57 97 General Appearance: no apparent distress, alert Neurologic Exam: alert, 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, cooperative, normal mood/affect, nml cerebellar function, nml station & gait, sensation nml, No motor deficits Eye Exam: PERRL/EOMI, eyes nml inspection Ears, Nose, Throat Exam: normal ENT inspection, TMs normal, pharynx normal, moist mucous membranes Neck Exam: normal inspection, non-tender, supple, full range of motion Respiratory Exam: wheezing, No respiratory distress Cardiovascular Exam: regular rate/rhythm, normal heart sounds, normal peripheral pulses Gastrointestinal/Abdomen Exam: soft, normal bowel sounds, No tenderness, No mass Back Exam: normal inspection, normal range of motion, No CVA tenderness, No vertebral tenderness Extremity Exam: normal inspection, normal range of motion, pelvis stable Skin Exam: normal color, warm, dry, No rash Lymphatic Exam: No adenopathy Results - Labs Lab/Micro Results: Lab Results-Last 24 Hours 03/29/23 03/29/23 03/29/23 Range/Units 05:18 05:45 05:50 WBC (4.0-10.5) x10^3/uL RBC (4.1-5.4) x10^6/uL Hgb (12.0-16.0) g/dL Hct (35-47) % MCV (78-100) fL MCH (26-32) pg MCHC (32-36) g/dL RDW (11.5-14.0) % Plt Count (150-450) x10^3/uL MPV (7.5-11.0) fL Gran % (36.0-66.0) % Immature Gran % (Auto) (0.00-0.4) % Nucleat RBC Rel Count (0.00-0.1) % Eos # (Auto) (0-0.5) x10^3/uL Immature Gran # (Auto) (0.00-0.03) x10^3u/L Absolute Lymphs (auto) (1.0-4.6) x10^3/uL Absolute Monos (auto) (0.0-1.3) x10^3/uL Absolute Nucleated RBC (0.00-0.01) x10^3u/L Lymphocytes % (24.0-44.0) % Monocytes % (0.0-12.0) % Eosinophils % (0.00-5.0) % Basophils % (0.0-0.4) % Absolute Granulocytes (1.4-6.9) x10^3/uL Basophils # (0-0.4) x10^3/uL pO2/FiO2 Ratio 21.0 % VBG pH 7.49 H (7.32-7.42) VBG pCO2 at Pat Temp 35 L (42-55) mm/Hg VBG pO2 at Pat Temp 84 H (25-40) mm/Hg VBG HCO3 26.7 (22-28) meq/L VBG O2 Sat (Pratik) 97.1 (95-100) VBG Base Excess 3.4 H (-2.0-2.0) VBG Hemoglobin 11.9 VBG Carboxyhemoglobin 2.1 (0.0-6.9) % T HGB POC Potassium 3.7 (3.5-5.1) Sodium (137-145) mmol/L Potassium (3.5-5.1) mmol/L Chloride (98-107) mmol/L Carbon Dioxide (22-30) mmol/L Anion Gap (5-15) MEQ/L BUN (7-17) mg/dL Creatinine (0.52-1.04) mg/dL Estimated GFR ML/MIN Glucose (74-106) mg/dL POC Glucometer (74 to 106) mg/dL Calcium (8.4-10.2) mg/dL Magnesium (1.6-2.3) mg/dL Total Bilirubin (0.2-1.3) mg/dL AST (14-36) U/L ALT (0-35) U/L Alkaline Phosphatase (38-126) U/L Troponin I < 0.012 (0.000-0.034) ng/mL Serum Total Protein (6.3-8.2) g/dL Albumin (3.5-5.0) g/dL Amylase (30-110) U/L Lipase (23-300) U/L Influenza Type A Ag (NEGATIVE) Influenza Type B Ag (NEGATIVE) RSV (PCR) (NEGATIVE) SARS-CoV-2 (PCR) (NEGATIVE) Group A Strep Antibody NOT DETECTED (NEGATIVE) 03/29/23 03/29/23 03/29/23 Range/Units 06:20 06:20 06:20 WBC 6.8 (4.0-10.5) x10^3/uL RBC 3.86 L (4.1-5.4) x10^6/uL Hgb 11.3 L (12.0-16.0) g/dL Hct 35.2 (35-47) % MCV 91.2 (78-100) fL MCH 29.3 (26-32) pg MCHC 32.1 (32-36) g/dL RDW 13.8 (11.5-14.0) % Plt Count 150 (150-450) x10^3/uL MPV 11.6 H (7.5-11.0) fL Gran % 73.7 H (36.0-66.0) % Immature Gran % (Auto) 0.3 (0.00-0.4) % Nucleat RBC Rel Count 0.0 (0.00-0.1) % Eos # (Auto) 0.05 (0-0.5) x10^3/uL Immature Gran # (Auto) 0.02 (0.00-0.03) x10^3u/L Absolute Lymphs (auto) 0.87 L (1.0-4.6) x10^3/uL Absolute Monos (auto) 0.83 (0.0-1.3) x10^3/uL Absolute Nucleated RBC 0.00 (0.00-0.01) x10^3u/L Lymphocytes % 12.7 L (24.0-44.0) % Monocytes % 12.2 H (0.0-12.0) % Eosinophils % 0.7 (0.00-5.0) % Basophils % 0.4 (0.0-0.4) % Absolute Granulocytes 5.03 (1.4-6.9) x10^3/uL Basophils # 0.03 (0-0.4) x10^3/uL pO2/FiO2 Ratio % VBG pH (7.32-7.42) VBG pCO2 at Pat Temp (42-55) mm/Hg VBG pO2 at Pat Temp (25-40) mm/Hg VBG HCO3 (22-28) meq/L VBG O2 Sat (Pratik) (95-100) VBG Base Excess (-2.0-2.0) VBG Hemoglobin VBG Carboxyhemoglobin (0.0-6.9) % T HGB POC Potassium (3.5-5.1) Sodium 137 (137-145) mmol/L Potassium 3.4 L (3.5-5.1) mmol/L Chloride 105 (98-107) mmol/L Carbon Dioxide 27 (22-30) mmol/L Anion Gap 9.2 (5-15) MEQ/L BUN 12 (7-17) mg/dL Creatinine 0.76 (0.52-1.04) mg/dL Estimated GFR 83.2 ML/MIN Glucose 153 H (74-106) mg/dL POC Glucometer (74 to 106) mg/dL Calcium 8.6 (8.4-10.2) mg/dL Magnesium 1.8 (1.6-2.3) mg/dL Total Bilirubin 1.10 (0.2-1.3) mg/dL AST 25 (14-36) U/L ALT 16 (0-35) U/L Alkaline Phosphatase 75 (38-126) U/L Troponin I (0.000-0.034) ng/mL Serum Total Protein 6.3 (6.3-8.2) g/dL Albumin 3.6 (3.5-5.0) g/dL Amylase (30-110) U/L Lipase (23-300) U/L Influenza Type A Ag NEGATIVE (NEGATIVE) Influenza Type B Ag NEGATIVE (NEGATIVE) RSV (PCR) NEGATIVE (NEGATIVE) SARS-CoV-2 (PCR) NEGATIVE (NEGATIVE) Group A Strep Antibody (NEGATIVE) 03/29/23 03/29/23 03/29/23 Range/Units 06:20 10:00 11:40 WBC (4.0-10.5) x10^3/uL RBC (4.1-5.4) x10^6/uL Hgb (12.0-16.0) g/dL Hct (35-47) % MCV (78-100) fL MCH (26-32) pg MCHC (32-36) g/dL RDW (11.5-14.0) % Plt Count (150-450) x10^3/uL MPV (7.5-11.0) fL Gran % (36.0-66.0) % Immature Gran % (Auto) (0.00-0.4) % Nucleat RBC Rel Count (0.00-0.1) % Eos # (Auto) (0-0.5) x10^3/uL Immature Gran # (Auto) (0.00-0.03) x10^3u/L Absolute Lymphs (auto) (1.0-4.6) x10^3/uL Absolute Monos (auto) (0.0-1.3) x10^3/uL Absolute Nucleated RBC (0.00-0.01) x10^3u/L Lymphocytes % (24.0-44.0) % Monocytes % (0.0-12.0) % Eosinophils % (0.00-5.0) % Basophils % (0.0-0.4) % Absolute Granulocytes (1.4-6.9) x10^3/uL Basophils # (0-0.4) x10^3/uL pO2/FiO2 Ratio % VBG pH (7.32-7.42) VBG pCO2 at Pat Temp (42-55) mm/Hg VBG pO2 at Pat Temp (25-40) mm/Hg VBG HCO3 (22-28) meq/L VBG O2 Sat (Pratik) (95-100) VBG Base Excess (-2.0-2.0) VBG Hemoglobin VBG Carboxyhemoglobin (0.0-6.9) % T HGB POC Potassium (3.5-5.1) Sodium (137-145) mmol/L Potassium (3.5-5.1) mmol/L Chloride (98-107) mmol/L Carbon Dioxide (22-30) mmol/L Anion Gap (5-15) MEQ/L BUN (7-17) mg/dL Creatinine (0.52-1.04) mg/dL Estimated GFR ML/MIN Glucose (74-106) mg/dL POC Glucometer 184 H (74 to 106) mg/dL Calcium (8.4-10.2) mg/dL Magnesium (1.6-2.3) mg/dL Total Bilirubin (0.2-1.3) mg/dL AST (14-36) U/L ALT (0-35) U/L Alkaline Phosphatase (38-126) U/L Troponin I < 0.012 (0.000-0.034) ng/mL Serum Total Protein (6.3-8.2) g/dL Albumin (3.5-5.0) g/dL Amylase < 30 L (30-110) U/L Lipase 55 (23-300) U/L Influenza Type A Ag (NEGATIVE) Influenza Type B Ag (NEGATIVE) RSV (PCR) (NEGATIVE) SARS-CoV-2 (PCR) (NEGATIVE) Group A Strep Antibody (NEGATIVE) 03/29/23 Range/Units 13:25 WBC (4.0-10.5) x10^3/uL RBC (4.1-5.4) x10^6/uL Hgb (12.0-16.0) g/dL Hct (35-47) % MCV (78-100) fL MCH (26-32) pg MCHC (32-36) g/dL RDW (11.5-14.0) % Plt Count (150-450) x10^3/uL MPV (7.5-11.0) fL Gran % (36.0-66.0) % Immature Gran % (Auto) (0.00-0.4) % Nucleat RBC Rel Count (0.00-0.1) % Eos # (Auto) (0-0.5) x10^3/uL Immature Gran # (Auto) (0.00-0.03) x10^3u/L Absolute Lymphs (auto) (1.0-4.6) x10^3/uL Absolute Monos (auto) (0.0-1.3) x10^3/uL Absolute Nucleated RBC (0.00-0.01) x10^3u/L Lymphocytes % (24.0-44.0) % Monocytes % (0.0-12.0) % Eosinophils % (0.00-5.0) % Basophils % (0.0-0.4) % Absolute Granulocytes (1.4-6.9) x10^3/uL Basophils # (0-0.4) x10^3/uL pO2/FiO2 Ratio % VBG pH (7.32-7.42) VBG pCO2 at Pat Temp (42-55) mm/Hg VBG pO2 at Pat Temp (25-40) mm/Hg VBG HCO3 (22-28) meq/L VBG O2 Sat (Pratik) (95-100) VBG Base Excess (-2.0-2.0) VBG Hemoglobin VBG Carboxyhemoglobin (0.0-6.9) % T HGB POC Potassium (3.5-5.1) Sodium (137-145) mmol/L Potassium (3.5-5.1) mmol/L Chloride (98-107) mmol/L Carbon Dioxide (22-30) mmol/L Anion Gap (5-15) MEQ/L BUN (7-17) mg/dL Creatinine (0.52-1.04) mg/dL Estimated GFR ML/MIN Glucose (74-106) mg/dL POC Glucometer (74 to 106) mg/dL Calcium (8.4-10.2) mg/dL Magnesium (1.6-2.3) mg/dL Total Bilirubin (0.2-1.3) mg/dL AST (14-36) U/L ALT (0-35) U/L Alkaline Phosphatase (38-126) U/L Troponin I < 0.012 (0.000-0.034) ng/mL Serum Total Protein (6.3-8.2) g/dL Albumin (3.5-5.0) g/dL Amylase (30-110) U/L Lipase (23-300) U/L Influenza Type A Ag (NEGATIVE) Influenza Type B Ag (NEGATIVE) RSV (PCR) (NEGATIVE) SARS-CoV-2 (PCR) (NEGATIVE) Group A Strep Antibody (NEGATIVE) - Radiology Impressions Radiology Exams & Impressions: Radiology Procedures Category Date Time Status CHEST 1 VIEW (PORTABLE) Stat Exams 03/29/23 05:19 Completed - Other Procedures and Tests Respiratory Therapy 03/29/23 05:41 Respiratory Therapy Assessment DAILY 03/29/23 06:06 Oxygen Nasal Cannula 2 lpm 03/29/23 21:20 EKG ROUTINE Assessment/Plan (1) COPD exacerbation Current Visit: Yes Status: Acute Assessment & Plan: - Antibiotics, steroids, duonebs, cough medication - RA 94% Code(s): J44.1 - CHRONIC OBSTRUCTIVE PULMONARY DISEASE W (ACUTE) EXACERBATION (2) Hyperlipidemia Current Visit: Yes Status: Chronic Assessment & Plan: - cont statin Code(s): E78.5 - HYPERLIPIDEMIA, UNSPECIFIED (3) GERD (gastroesophageal reflux disease) Current Visit: Yes Status: Chronic Assessment & Plan: - Cont PPI Code(s): K21.9 - GASTRO-ESOPHAGEAL REFLUX DISEASE WITHOUT ESOPHAGITIS (4) HTN (hypertension) Current Visit: Yes Status: Chronic Assessment & Plan: - Bp controlled - Cont home BP meds Code(s): I10 - ESSENTIAL (PRIMARY) HYPERTENSION (5) Obesity, Class III, BMI 40-49.9 (morbid obesity) Current Visit: Yes Status: Chronic Assessment & Plan: - advised diet and exercise control Code(s): E66.01 - MORBID (SEVERE) OBESITY DUE TO EXCESS CALORIES (6) Type 2 diabetes mellitus Current Visit: No Status: Chronic Qualifiers: Diabetes mellitus nursing home insulin use: without director long term care use Diabetes mellitus complication status: without complication Qualified Code(s): E11.9 - Type 2 diabetes mellitus without complications Assessment & Plan: - humalog s/s- moderate dosing - accuchecks ac/hs (7) Hypokalemia Current Visit: Yes Status: Acute Assessment & Plan: - K+ 3.4- replaced - trend VTE: SCD PPI: Protonix Next of Kin: Ninfa Ahuja [phone] D/C plan: tomorrow Code status: Full Code(s): E87.6 - HYPOKALEMIA
[2023-03-29] MEDS ORDERED: Klor Con PO ONE (15:10)
[2023-03-29] MEDS ORDERED: DELTASONE 20 MG PO SCH (22:00)
[2023-03-29] MEDS: Ambien 10 MG PO SCH (22:27)
[2023-03-29] MEDS: Toprol-Xl 25MG Tablets PO SCH (22:28)
[2023-03-29] MEDS: CLARITIN 10 MG PO SCH (22:28)
[2023-03-29] MEDS: Zocor 10MG PO SCH (22:28)
[2023-03-29] MEDS: ASTELIN NASAL NS SCH (22:31)
[2023-03-30] MEDS: PROVENTIL 2.5 MG/3 ML NEB IH SCH ×2 (01:15→06:40)
[2023-03-30 05:03] LABS: Hematocrit 31.2 % (35-47); Mean Corpuscular Hemoglobin 29.5 pg (26-32); Mean Corpuscular Hgb Concent. 32.1 g/dL (32-36); Mean Platelet Volume 11.5 fL (7.5-11.0); Platelet Count 130 x10^3/uL (150-450); Red Blood Count 3.39 x10^6/uL (4.1-5.4); Red Cell Distribution Width 14.3 % (11.5-14.0); White Blood Count 5.4 x10^3/uL (4.0-10.5)
[2023-03-30 05:36] LABS: ALBUMIN 3.3 g/dL (3.5-5.0); ANION GAP 9.8 MEQ/L (5-15); BILIRUBIN,TOTAL 0.4 mg/dL (0.2-1.3); Calcium 8.4 mg/dL (8.4-10.2); Creatinine 1 0.77 mg/dL (0.52-1.04); EST GLOMERULAR FILTRATION RATE 81.9 ML/MIN; MAGNESIUM 1.9 mg/dL (1.6-2.3); Total Protein 5.8 g/dL (6.3-8.2)
[2023-03-30] MEDS: Advair Hfa 115/21 Common canister IH SCH ×2 (06:40→19:15)
[2023-03-30] MEDS: HUMALOG SQ PRN ×3 (08:50→17:20)
--- NOTE | 2023-03-30 09:24 | PCM.NOTE ---
Date and Time: 03/30/23 0851 Subjective Assessment: 03/29/23 is a 72 year old female with PMHX of cataracts, arrthmia, COPD, type II DM, OA, Diverticulitis, Pancreatitis, depression, pacemaker, lung cancer with wedge resection in 2020. Pt came into the ER last night she explained for the past 4 days she has had a sore throat and cough productive of green phlegm. Thenfor the past 3 days nausea and fever up to 101 degrees. Since last night a frontal headache. This AM oxygen saturation of 82% at home with shortness of breath. She does have her own pulse ox at home d/t her COPD and lung CA hx. CXR was negative. she does have course lung sounds and will treat her for a COPD exacerbation. Will continue breathing txs, antibiotics and steriods. Pt asked that we do not give large doses of steriods as it makes her blood sugar our of control. She also explained she only wants to stay overnight and d/c tomorrow. She is currently RA @ 94%. She refused tele and cont pulse ox. She denies CP, Abd. pain, N/V/D. 03/30/23 Pt resting in bed. She continues to be SOB. Lung sounds have improve some but she continues to sound coarse throughout. She is agreeable to increased dose of steroids and duonebs. She is requesting a change in cough medication, Tussinex added. Added mucinex as well to help thin secretions. She is RA @ 95%. She is agreeable to staying another night. She denies CP, Abd. pain, N/V/d. - Review of Systems Constitutional: No Fever, No Chills Eyes: No Symptoms Ears, Nose, & Throat: No Symptoms Respiratory: Cough, Short Of Breath Cardiac: No Chest Pain, No Edema, No Syncope Abdominal/Gastrointestinal: No Abdominal Pain, No Nausea, No Vomiting, No Diarrhea Genitourinary Symptoms: No Dysuria Musculoskeletal: No Back Pain, No Neck Pain Skin: No Rash Neurological: No Dizziness, No Focal Weakness, No Sensory Changes Psychological: No Symptoms Endocrine: No Symptoms Hematologic/Lymphatic: No Symptoms Immunological/Allergic: No Symptoms Objective Exam General Appearance: no apparent distress, alert Neurologic Exam: alert, 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, cooperative, normal mood/affect, nml cerebellar function, sensation nml, No motor deficits Skin Exam: normal color, warm, dry Eye Exam: PERRL, EOMI, eyes nml inspection Ears, Nose, Throat Exam: normal ENT inspection, pharynx normal, moist mucous membranes Neck Exam: normal inspection, non-tender, supple, full range of motion Respiratory Exam: rhonchi, No respiratory distress Cardiovascular Exam: regular rate/rhythm, normal heart sounds Gastrointestinal/Abdomen Exam: soft, No tenderness, No mass Extremity Exam: normal inspection, normal range of motion Back Exam: normal inspection, normal range of motion, No CVA tenderness, No vertebral tenderness Pelvic Exam: deferred Rectal Exam: deferred OBJECTIVE DATA Vital Signs: Vital Signs - 24 hr Temp Pulse Resp BP BP Pulse Ox 03/30/23 08:00 97.5 F 72 17 119/57 95 03/30/23 06:44 87 20 95 03/30/23 04:00 97.6 F 71 22 113/56 95 03/30/23 01:15 92 L 03/29/23 23:18 97.1 F 74 24 127/56 95 03/29/23 20:00 97.7 F 80 22 95/53 97 03/29/23 18:51 70 20 94 L 03/29/23 16:00 98.1 F 69 20 124/58 97 03/29/23 11:58 97.6 F 69 27 H 113/59 94 L 03/29/23 09:48 98.9 F 60 21 121/58 130/57 94 L 03/29/23 09:45 95 Pain Assessment - Last Documented Pain Intensity 0 Intake and Output: Intake & Output 03/27/23 03/28/23 03/29/23 03/30/23 11:59 11:59 11:59 11:59 Intake Total 1580 Balance 1580 Weight 110.7 kg Lab Results: Lab Results-Last 24 Hours 03/29/23 03/29/23 03/29/23 Range/Units 10:00 11:40 13:25 WBC (4.0-10.5) x10^3/uL RBC (4.1-5.4) x10^6/uL Hgb (12.0-16.0) g/dL Hct (35-47) % MCV (78-100) fL MCH (26-32) pg MCHC (32-36) g/dL RDW (11.5-14.0) % Plt Count (150-450) x10^3/uL MPV (7.5-11.0) fL Sodium (137-145) mmol/L Potassium (3.5-5.1) mmol/L Chloride (98-107) mmol/L Carbon Dioxide (22-30) mmol/L Anion Gap (5-15) MEQ/L BUN (7-17) mg/dL Creatinine (0.52-1.04) mg/dL Estimated GFR ML/MIN Glucose (74-106) mg/dL POC Glucometer 184 H (74 to 106) mg/dL Calcium (8.4-10.2) mg/dL Magnesium (1.6-2.3) mg/dL Total Bilirubin (0.2-1.3) mg/dL AST (14-36) U/L ALT (0-35) U/L Alkaline Phosphatase (38-126) U/L Troponin I < 0.012 < 0.012 (0.000-0.034) ng/mL Serum Total Protein (6.3-8.2) g/dL Albumin (3.5-5.0) g/dL 03/29/23 03/29/23 03/30/23 Range/Units 16:32 21:46 04:45 WBC 5.4 (4.0-10.5) x10^3/uL RBC 3.39 L (4.1-5.4) x10^6/uL Hgb 10.0 L (12.0-16.0) g/dL Hct 31.2 L (35-47) % MCV 92.0 (78-100) fL MCH 29.5 (26-32) pg MCHC 32.1 (32-36) g/dL RDW 14.3 H (11.5-14.0) % Plt Count 130 L (150-450) x10^3/uL MPV 11.5 H (7.5-11.0) fL Sodium (137-145) mmol/L Potassium (3.5-5.1) mmol/L Chloride (98-107) mmol/L Carbon Dioxide (22-30) mmol/L Anion Gap (5-15) MEQ/L BUN (7-17) mg/dL Creatinine (0.52-1.04) mg/dL Estimated GFR ML/MIN Glucose (74-106) mg/dL POC Glucometer 264 H 223 H (74 to 106) mg/dL Calcium (8.4-10.2) mg/dL Magnesium (1.6-2.3) mg/dL Total Bilirubin (0.2-1.3) mg/dL AST (14-36) U/L ALT (0-35) U/L Alkaline Phosphatase (38-126) U/L Troponin I (0.000-0.034) ng/mL Serum Total Protein (6.3-8.2) g/dL Albumin (3.5-5.0) g/dL 03/30/23 03/30/23 03/30/23 Range/Units 04:45 04:45 07:44 WBC (4.0-10.5) x10^3/uL RBC (4.1-5.4) x10^6/uL Hgb (12.0-16.0) g/dL Hct (35-47) % MCV (78-100) fL MCH (26-32) pg MCHC (32-36) g/dL RDW (11.5-14.0) % Plt Count (150-450) x10^3/uL MPV (7.5-11.0) fL Sodium 136 L (137-145) mmol/L Potassium 4.0 (3.5-5.1) mmol/L Chloride 105 (98-107) mmol/L Carbon Dioxide 25 (22-30) mmol/L Anion Gap 9.8 (5-15) MEQ/L BUN 17 (7-17) mg/dL Creatinine 0.77 (0.52-1.04) mg/dL Estimated GFR 81.9 ML/MIN Glucose 180 H (74-106) mg/dL POC Glucometer 165 H (74 to 106) mg/dL Calcium 8.4 (8.4-10.2) mg/dL Magnesium 1.9 (1.6-2.3) mg/dL Total Bilirubin 0.40 (0.2-1.3) mg/dL AST 17 (14-36) U/L ALT 15 (0-35) U/L Alkaline Phosphatase 67 (38-126) U/L Troponin I < 0.012 (0.000-0.034) ng/mL Serum Total Protein 5.8 L (6.3-8.2) g/dL Albumin 3.3 L (3.5-5.0) g/dL Radiology Exams: Radiology Procedures Category Date Time Status CHEST 1 VIEW (PORTABLE) Stat Exams 03/29/23 05:19 Completed Assessment/Plan (1) COPD exacerbation Current Visit: Yes Status: Acute Code(s): J44.1 - CHRONIC OBSTRUCTIVE PULMONARY DISEASE W (ACUTE) EXACERBATION (2) Hyperlipidemia Current Visit: Yes Status: Chronic Code(s): E78.5 - HYPERLIPIDEMIA, UNSPECIFIED (3) GERD (gastroesophageal reflux disease) Current Visit: Yes Status: Chronic Code(s): K21.9 - GASTRO-ESOPHAGEAL REFLUX DISEASE WITHOUT ESOPHAGITIS (4) HTN (hypertension) Current Visit: Yes Status: Chronic Code(s): I10 - ESSENTIAL (PRIMARY) HYPERTENSION (5) Obesity, Class III, BMI 40-49.9 (morbid obesity) Current Visit: Yes Status: Chronic Code(s): E66.01 - MORBID (SEVERE) OBESITY DUE TO EXCESS CALORIES (6) Type 2 diabetes mellitus Current Visit: No Status: Chronic Qualifiers: Diabetes mellitus [employer]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 Diabetes mellitus complication status: without complication Qualified Code(s): E11.9 - Type 2 diabetes mellitus without complications (7) Hypokalemia Current Visit: Yes Status: Acute Assessment & Plan: (1) COPD exacerbation Current Visit: Yes Status: Acute Assessment & Plan: - Antibiotics, steroids, duonebs, cough medication - RA 94% 03/30 - RA 95% - steroids increased - mucinex - tussinex added Code(s): J44.1 - CHRONIC OBSTRUCTIVE PULMONARY DISEASE W (ACUTE) EXACERBATION (2) Hyperlipidemia Current Visit: Yes Status: Chronic Assessment & Plan: - cont statin Code(s): E78.5 - HYPERLIPIDEMIA, UNSPECIFIED (3) GERD (gastroesophageal reflux disease) Current Visit: Yes Status: Chronic Assessment & Plan: - Cont PPI Code(s): K21.9 - GASTRO-ESOPHAGEAL REFLUX DISEASE WITHOUT ESOPHAGITIS (4) HTN (hypertension) Current Visit: Yes Status: Chronic Assessment & Plan: - Bp controlled - Cont home BP meds Code(s): I10 - ESSENTIAL (PRIMARY) HYPERTENSION (5) Obesity, Class III, BMI 40-49.9 (morbid obesity) Current Visit: Yes Status: Chronic Assessment & Plan: - advised diet and exercise control Code(s): E66.01 - MORBID (SEVERE) OBESITY DUE TO EXCESS CALORIES (6) Type 2 diabetes mellitus Current Visit: No Status: Chronic Qualifiers: 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
[2023-03-30] MEDS: solu-MEDROL 40 MG, Sterile H2O 10 ml 1 ML IV SCH ×4 (09:45→22:18)
[2023-03-30] MEDS: ROCEPHIN 1 Gm-D5w 50 ml Bag** 1 G/50 ML IVPB IV SCH (09:46)
[2023-03-30] MEDS: DIOVAN 80 MG PO SCH ×2 (09:46→22:13)
[2023-03-30] MEDS: Protonix 40MG Tablet PO SCH (09:47)
[2023-03-30] MEDS: LASIX 20 MG PO SCH (09:47)
[2023-03-30] MEDS: HYDROCODONE-CHLORPHEN ER SUSP PO PRN ×2 (09:47→22:10)
[2023-03-30] MEDS: Mucinex 600MG ER Tabs PO SCH ×2 (09:47→22:13)
[2023-03-30] MEDS: TYLENOL 325 MG PO PRN ×2 (12:14→22:14)
[2023-03-30] MEDS: DUONEB 0.5-3 MG/3 ml Neb IH SCH ×2 (13:06→19:15)
[2023-03-30] MEDS: Toprol-Xl 25MG Tablets PO SCH (22:10)
[2023-03-30] MEDS: CLARITIN 10 MG PO SCH (22:14)
[2023-03-30] MEDS: Ambien 10 MG PO SCH (22:14)
[2023-03-30] MEDS: Zocor 10MG PO SCH (22:14)
[2023-03-30] MEDS: ASTELIN NASAL NS SCH (22:17)
[2023-03-31] MEDS: DUONEB 0.5-3 MG/3 ml Neb IH SCH ×2 (01:20→06:53)
[2023-03-31 05:58] LABS: Hematocrit 32.4 % (35-47); Hemoglobin 10.1 g/dL (12.0-16.0); Mean Cell Volume 93.6 fL (78-100); Mean Corpuscular Hemoglobin 29.2 pg (26-32); Mean Corpuscular Hgb Concent. 31.2 g/dL (32-36); Mean Platelet Volume 11.9 fL (7.5-11.0); Platelet Count 114 x10^3/uL (150-450); Red Blood Count 3.46 x10^6/uL (4.1-5.4); Red Cell Distribution Width 14.4 % (11.5-14.0); White Blood Count 6.1 x10^3/uL (4.0-10.5)
[2023-03-31 06:09] LABS: ALBUMIN 3.2 g/dL (3.5-5.0); ANION GAP 9.1 MEQ/L (5-15); BILIRUBIN,TOTAL 0.4 mg/dL (0.2-1.3); Calcium 8.2 mg/dL (8.4-10.2); Creatinine 1 0.77 mg/dL (0.52-1.04); EST GLOMERULAR FILTRATION RATE 81.9 ML/MIN; Potassium 4.2 mmol/L (3.5-5.1); Total Protein 5.7 g/dL (6.3-8.2)
[2023-03-31] MEDS: Advair Hfa 115/21 Common canister IH SCH (06:53)
[2023-03-31 07:00] VITALS: BP 139/64; PULSE 61; RESP 16; TEMP 97.1; O2SAT 93
[2023-03-31] MEDS: HUMALOG SQ PRN (07:31)
[2023-03-31] MEDS: ROCEPHIN 1 Gm-D5w 50 ml Bag** 1 G/50 ML IVPB IV SCH (09:22)
[2023-03-31] MEDS: Mucinex 600MG ER Tabs PO SCH (09:22)
[2023-03-31] MEDS: Protonix 40MG Tablet PO SCH (09:22)
[2023-03-31] MEDS: DIOVAN 80 MG PO SCH (09:22)
[2023-03-31] MEDS: LASIX 20 MG PO SCH (09:22)
[2023-03-31] MEDS: solu-MEDROL 40 MG, Sterile H2O 10 ml 1 ML IV SCH ×2 (09:22)
--- NOTE | 2023-03-31 09:50 | PCM.DS ---
Discharge Summary Date of Admission: 03/29/23 08:40 Date of Discharge: 03/31/23 Admitting Physician: ESTHER GOINS MD Primary Care Provider: SKYLER CEJA Allergies Allergies clarithromycin [From Biaxin] Allergy (Severe, Verified 02/15/23 12:05) Hives Coconut Allergy (Severe, Verified 02/15/23 12:05) Difficulty Breathing green dye *RETIRED-07/03/12 [Green Dye] Allergy (Mild, Verified 02/15/23 12:05) Swelling swelling ears red dye [Red Dye] Allergy (Mild, Verified 02/15/23 12:05) Swelling ears swell adhesive Allergy (Verified 02/15/23 12:05) Rash cholestyramine Allergy (Verified 02/15/23 12:05) iodine Allergy (Verified 02/15/23 12:05) Wheezing latex Allergy (Verified 02/15/23 12:05) Rash nitrofurantoin [From Macrobid] Allergy (Verified 02/15/23 12:05) levofloxacin [From Levaquin] Adverse Reaction (Mild, Verified 02/15/23 12:05) [facility] Summary - Hospital Course Hospital Course: 03/29/23 is a 72 year old female with PMHX of cataracts, arrthmia, COPD, type II DM, OA, Diverticulitis, Pancreatitis, depression, pacemaker, lung cancer with wedge resection in 2020. Pt came into the ER last night she explained for the past 4 days she has had a sore throat and cough productive of green phlegm. Thenfor the past 3 days nausea and fever up to 101 degrees. Since last night a frontal headache. This AM oxygen saturation of 82% at home with shortness of breath. She does have her own pulse ox at home d/t her COPD and lung CA hx. CXR was negative. she does have course lung sounds and will treat her for a COPD exacerbation. Will continue breathing txs, antibiotics and steriods. Pt asked that we do not give large doses of steriods as it makes her blood sugar our of control. She also explained she only wants to stay overnight and d/c tomorrow. She is currently RA @ 94%. She refused tele and cont pulse ox. She denies CP, Abd. pain, N/V/D. 03/30/23 Pt resting in bed. She continues to be SOB. Lung sounds have improve some but she continues to sound coarse throughout. She is agreeable to increased dose of steroids and duonebs. She is requesting a change in cough medication, Tussinex added. Added mucinex as well to help thin secretions. She is RA @ 95%. She is agreeable to staying another night. She denies CP, Abd. pain, N/V/d. 03/31/23 Pt sitting up in bed. She reports dyspnea is much better. She would like to go home today. She still has some wheezing in BLLL. She is requesting to have IV steroids and antibiotics dose prior to d/c today. Will d/c with antibiotics and steroids as well. She is also asking for s/s insulin to be sent in as glucose in the past elevated at home with steroids. She denies any further concerns at this time. BC x2 pending, will continue to follow. - Vitals & Intake/Output Vital Signs: Vital Signs Temperature 97.1 F 03/31/23 06:59 Pulse Rate 61 03/31/23 06:59 Respiratory Rate 16 03/31/23 06:59 Blood Pressure 139/64 03/31/23 06:59 O2 Sat by Pulse Oximetry 93 L 03/31/23 06:59 Intake & Output: Intake & Output 03/28/23 03/29/23 03/30/23 03/31/23 11:59 11:59 11:59 11:59 Intake Total 1820 1218 Balance 1820 1218 Weight 110.7 kg - Lab Result Diagrams: 03/31/23 05:25 03/31/23 05:25 Lab Results-Last 24 Hrs: Lab Results-Last 24 Hours 03/30/23 03/30/23 03/30/23 Range/Units 11:29 16:25 21:04 WBC (4.0-10.5) x10^3/uL RBC (4.1-5.4) x10^6/uL Hgb (12.0-16.0) g/dL Hct (35-47) % MCV (78-100) fL MCH (26-32) pg MCHC (32-36) g/dL RDW (11.5-14.0) % Plt Count (150-450) x10^3/uL MPV (7.5-11.0) fL Sodium (137-145) mmol/L Potassium (3.5-5.1) mmol/L Chloride (98-107) mmol/L Carbon Dioxide (22-30) mmol/L Anion Gap (5-15) MEQ/L BUN (7-17) mg/dL Creatinine (0.52-1.04) mg/dL Estimated GFR ML/MIN Glucose (74-106) mg/dL POC Glucometer 149 H 180 H 189 H (74 to 106) mg/dL Calcium (8.4-10.2) mg/dL Total Bilirubin (0.2-1.3) mg/dL AST (14-36) U/L ALT (0-35) U/L Alkaline Phosphatase (38-126) U/L Serum Total Protein (6.3-8.2) g/dL Albumin (3.5-5.0) g/dL 03/31/23 03/31/23 03/31/23 Range/Units 05:25 05:25 06:42 WBC 6.1 (4.0-10.5) x10^3/uL RBC 3.46 L (4.1-5.4) x10^6/uL Hgb 10.1 L (12.0-16.0) g/dL Hct 32.4 L (35-47) % MCV 93.6 (78-100) fL MCH 29.2 (26-32) pg MCHC 31.2 L (32-36) g/dL RDW 14.4 H (11.5-14.0) % Plt Count 114 L (150-450) x10^3/uL MPV 11.9 H (7.5-11.0) fL Sodium 133 L (137-145) mmol/L Potassium 4.2 (3.5-5.1) mmol/L Chloride 103 (98-107) mmol/L Carbon Dioxide 25 (22-30) mmol/L Anion Gap 9.1 (5-15) MEQ/L BUN 24 H (7-17) mg/dL Creatinine 0.77 (0.52-1.04) mg/dL Estimated GFR 81.9 ML/MIN Glucose 188 H (74-106) mg/dL POC Glucometer 183 H (74 to 106) mg/dL Calcium 8.2 L (8.4-10.2) mg/dL Total Bilirubin 0.40 (0.2-1.3) mg/dL AST 17 (14-36) U/L ALT 16 (0-35) U/L Alkaline Phosphatase 64 (38-126) U/L Serum Total Protein 5.7 L (6.3-8.2) g/dL Albumin 3.2 L (3.5-5.0) g/dL Micro Results-Entire Visit: Microbiology 03/29/23 06:20 Blood Culture - Preliminary Blood 03/29/23 05:45 Blood Culture - Preliminary Blood 03/29/23 10:30 Gram Stain - Final Sputum - Aerosol Induced Sputum Culture - Final Klebsiella Pneumoniae Accuchecks Date 03/31/23 Date 03/30/23 Date 03/30/23 Date 03/30/23 Time 06:58 Time 16:53 Time 16:53 Time 12:26 - Procedures and Test Procedures and Tests throughout Hospitalization: Therapy Orders & Screens 03/29/23 05:41 Respiratory Therapy Assessment DAILY Comment: 03/29/23 06:06 Oxygen Nasal Cannula 2 lpm Comment: Respiratory Therapy Consult ONCE Comment: Reason For Exam: 03/29/23 09:43 Respiratory MDI BID Comment: Diagnosis: Pneumonia; Dyspnea 03/29/23 13:20 EKG ROUTINE Comment: Diagnosis: Pneumonia; Dyspnea 03/29/23 21:20 EKG ROUTINE Comment: Diagnosis: Pneumonia; Dyspnea Discharge Exam General Appearance: no apparent distress, alert, obese Neurologic Exam: alert, 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, cooperative, normal mood/affect, nml cerebellar function, sensation nml, No motor deficits Eye Exam: PERRL, EOMI, eyes nml inspection Ears, Nose, Throat Exam: normal ENT inspection, pharynx normal, moist mucous membranes Neck Exam: normal inspection, non-tender, supple, full range of motion Respiratory Exam: lungs clear, wheezing (BLLL), No respiratory distress Cardiovascular Exam: regular rate/rhythm, normal heart sounds Gastrointestinal/Abdomen Exam: soft, No tenderness, No mass Pelvic Exam: deferred Rectal Exam: deferred Back Exam: normal inspection, normal range of motion, No CVA tenderness, No vertebral tenderness Extremity Exam: normal inspection, normal range of motion Skin Exam: normal color, warm, dry Final Diagnosis/Problem List - Final Discharge Diagnosis/Problem (1) COPD exacerbation Current Visit: Yes Status: Acute Code(s): J44.1 - CHRONIC OBSTRUCTIVE PULMONARY DISEASE W (ACUTE) EXACERBATION (2) Hyperlipidemia Current Visit: Yes Status: Chronic Code(s): E78.5 - HYPERLIPIDEMIA, UNSPECIFIED (3) GERD (gastroesophageal reflux disease) Current Visit: Yes Status: Chronic Code(s): K21.9 - GASTRO-ESOPHAGEAL REFLUX DISEASE WITHOUT ESOPHAGITIS (4) HTN (hypertension) Current Visit: Yes Status: Chronic Code(s): I10 - ESSENTIAL (PRIMARY) HYPERTENSION (5) Obesity, Class III, BMI 40-49.9 (morbid obesity) Current Visit: Yes Status: Chronic Code(s): E66.01 - MORBID (SEVERE) OBESITY DUE TO EXCESS CALORIES (6) Type 2 diabetes mellitus Current Visit: No Status: Chronic (7) Hypokalemia Current Visit: Yes Status: Acute Assessment & Plan: (1) COPD exacerbation Current Visit: Yes Status: Acute Assessment & Plan: - Antibiotics, steroids, duonebs, cough medication - RA 94% 03/30 - RA 95% - steroids increased - mucinex - tussinex added 03/31 - sxs improved - will d/c with antibiotics and steroids - BC x2 pending Code(s): J44.1 - CHRONIC OBSTRUCTIVE PULMONARY DISEASE W (ACUTE) EXACERBATION (2) Hyperlipidemia Current Visit: Yes Status: Chronic Assessment & Plan: - cont statin Code(s): E78.5 - HYPERLIPIDEMIA, UNSPECIFIED (3) GERD (gastroesophageal reflux disease) Current Visit: Yes Status: Chronic Assessment & Plan: - Cont PPI Code(s): K21.9 - GASTRO-ESOPHAGEAL REFLUX DISEASE WITHOUT ESOPHAGITIS (4) HTN (hypertension) Current Visit: Yes Status: Chronic Assessment & Plan: - Bp controlled - Cont home BP meds Code(s): I10 - ESSENTIAL (PRIMARY) HYPERTENSION (5) Obesity, Class III, BMI 40-49.9 (morbid obesity) Current Visit: Yes Status: Chronic Assessment & Plan: - advised diet and exercise control Code(s): E66.01 - MORBID (SEVERE) OBESITY DUE TO EXCESS CALORIES (6) Type 2 diabetes mellitus Current Visit: No Status: Chronic Qualifiers: Diabetes mellitus intermodal customer service insulin use: without intermodal customer service use Diabetes mellitus complication status: without complication Qualified Code(s): E11.9 - Type 2 diabetes mellitus without complications Assessment & Plan: - humalog s/s- moderate dosing - accuchecks ac/hs 03/31 - will d/c with S/S insulin (7) Hypokalemia Current Visit: Yes Status: Acute Assessment & Plan: - K+ 3.4- replaced - trend 03/30 - K+ 4.0 resolved Code(s): E87.6 - HYPOKALEMIA - Discharge Discharge Date: 03/31/23 Disposition: Home, Self-Care Condition: Stable Prescriptions: New Guaifenesin 600 mg ER [Mucinex 600MG ER Tabs] 600 mg PO BID 10 Days #20 tablet Continue Zolpidem Tartrate [Ambien] 10 mg PO HS Rosuvastatin Calcium 5 mg PO QHS Budesonide/Glycopyr/Formoterol [Breztri Aerosphere Inhaler] 2 puffs IH BID Azelastine HCl 1 spray INTRANASAL HS Fexofenadine HCl [Sonia Allergy] 180 mg PO HS Furosemide 20 mg [Lasix 20 mg] 20 mg PO DAILY Insulin Lispro [Insulin Lispro Kwikpen U-100] 1 unit SQ ACHS Biotin 0 mcg PO HS Benzonatate 100 mg PO TIDPRN PRN PRN Reason: Cough Albuterol 2.5 mg/0.5 ml [PROVENTIL Solution 2.5 MG/0.5 ML] 0.5 ml IH Q6H PRN PRN Reason: Cough Diphenoxylate HCl/Atropine [Diphenoxylate-Atrop 2.5-0.025] 1 tab PO BIDPRN PRN PRN Reason: Diarrhea Esomeprazole Magnesium 40 mg PO QAM Valsartan 160 mg PO BID Ondansetron [Ondansetron Odt ] 4 mg PO Q6HPRN PRN PRN Reason: Nausea/Vomiting Metoprolol Succinate 25 mg Xl* [Toprol-Xl 25MG Tablets] 25 mg PO HS Instructions: Chronic Obstructive Pulmonary Disease (COPD) (DC), Pneumonia, Adult (DC) Additional Instructions: Humalog sliding scale with meals MODERATE DOSE: BS 70-150 NO INSULIN BS 151-200 3 UNITS BS 201-250 5 UNITS BS 251-300 7 UNITS BS 301-350 9 UNITS BS 351-400 11 UNITS BS 401-450 13 UNITS BS 451-500 15 UNITS BS > 500 VERIFY, THEN CALL PHYSICIAN Follow up with: SKYLER CEJA NP [Primary Care Provider] - 04/05/23 10:15 am
--- NOTE | 2023-04-01 16:19 | PCM.DCORD ---
- Discharge Disposition: Home, Self-Care Condition: Stable Prescriptions: New Guaifenesin 600 mg ER [Mucinex 600MG ER Tabs] 600 mg PO BID 10 Days #20 tablet Cefuroxime Axetil 500 mg [Ceftin 500 mg] 500 mg PO BID 5 Days #10 tablet Prednisone 20 mg [Deltasone 20 mg] 20 mg PO BID 5 Days #10 tablet Insulin Lispro [Humalog Kwikpen] 100 unit SQ DAILY PRN PRN 30 Days #100 units PRN Reason: Hyperglycemia Pen Needle, Diabetic [Pentips Pen Needle] 1 each MC TID PRN PRN 30 Days #100 units PRN Reason: Hyperglycemia Continue Zolpidem Tartrate [Ambien] 10 mg PO HS Rosuvastatin Calcium 5 mg PO QHS Budesonide/Glycopyr/Formoterol [Breztri Aerosphere Inhaler] 2 puffs IH BID Azelastine HCl 1 spray INTRANASAL HS Fexofenadine HCl [Sonia Allergy] 180 mg PO HS Furosemide 20 mg [Lasix 20 mg] 20 mg PO DAILY Insulin Lispro [Insulin Lispro Kwikpen U-100] 1 unit SQ ACHS Biotin 0 mcg PO HS Benzonatate 100 mg PO TIDPRN PRN PRN Reason: Cough Diphenoxylate HCl/Atropine [Diphenoxylate-Atrop 2.5-0.025] 1 tab PO BIDPRN PRN PRN Reason: Diarrhea Esomeprazole Magnesium 40 mg PO QAM Valsartan 160 mg PO BID Ondansetron [Ondansetron Odt ] 4 mg PO Q6HPRN PRN PRN Reason: Nausea/Vomiting Metoprolol Succinate 25 mg Xl* [Toprol-Xl 25MG Tablets] 25 mg PO HS Changed Albuterol 2.5 mg/0.5 ml [PROVENTIL Solution 2.5 MG/0.5 ML] 0.5 ml IH Q6HPRN PRN 5 Days #30 units PRN Reason: Shortness Of Breath/Wheezing Instructions: Chronic Obstructive Pulmonary Disease (COPD) (DC), Pneumonia, Adult (DC) Additional Instructions: Humalog sliding scale with meals MODERATE DOSE: BS 70-150 NO INSULIN BS 151-200 3 UNITS BS 201-250 5 UNITS BS 251-300 7 UNITS BS 301-350 9 UNITS BS 351-400 11 UNITS BS 401-450 13 UNITS BS 451-500 15 UNITS BS > 500 VERIFY, THEN CALL PHYSICIAN Follow up with: SKYLER CEJA NP [Primary Care Provider] - 04/05/23 10:15 am
== END 2023-03-31 11:38 | disposition home or self-care (01) ==
LOC: ED 05:03 → MED SURG 08:40
PROVIDERS: ADMIT Internal Medicine Critical Care Medicine; ATTEND Internal Medicine Critical Care Medicine
DX: J44.1 Chronic obstructive pulmonary disease with (acute) exacerbation (principal); E78.5 Hyperlipidemia, unspecified; K21.9 Gastro-esophageal reflux disease without esophagitis; I10 Essential (primary) hypertension; E66.01 Morbid (severe) obesity due to excess calories; E11.9 Type 2 diabetes mellitus without complications; E87.6 Hypokalemia; Z79.899 Other long term (current) drug therapy; Z20.828 Contact with and (suspected) exposure to other viral communicable diseases; Z85.118 Personal history of other malignant neoplasm of bronchus and lung
CPT/HCPCS: 0241U; 36000; 36415; 71045; 80053; 82150; 82805; 82947; 83690; 83735; 84484; 85025; 85027; 87040; 87070; 87077; 87186; 87651; 93005; 93041; 93268; 94640; 94760; 94762; 96360; 96365; 96374; 99285; G0378; Q3014; J0696; J1817; J2920; J2930; J7609; Q0162; A9270-GY

== ENCOUNTER 2023-04-16 12:25 | Emergency (ER) | payer MEDICARE, OTHER ==
[2023-04-16] MEDS ORDERED: BABY ASPIRIN 81 MG CHEW ONE (12:47)
[2023-04-16] MEDS ORDERED: Zofran 4 MG/2 ML VIAL ONE (12:47)
[2023-04-16] MEDS ORDERED: SUBLIMAZE 100 MCG/2 ML ONE (12:50)
[2023-04-16] MEDS ORDERED: Sodium Chloride 0.9% 1000 ML 1,000 ML ONE (12:50)
[2023-04-16] MEDS: SUBLIMAZE 100 MCG/2 ML IV ONE (12:51)
[2023-04-16] MEDS: Sodium Chloride 0.9% 1000 ML 1,000 ML IV STA (12:51)
[2023-04-16] MEDS: Zofran 4 MG/2 ML VIAL IV ONE (12:52)
[2023-04-16] MEDS: BABY ASPIRIN 81 MG CHEW PO ONE (12:53)
[2023-04-16 12:54] LABS: Absolute Neutrophil Ct (ANC) 5.58 x10^3/uL (1.4-6.9); BASOPHIL % 0.1 % (0.0-0.4); Basophil (Absolute #) 0.01 x10^3/uL (0-0.4); Eosinophil % 1.6 % (0.00-5.0); Eosinophil (Absolute #) 0.14 x10^3/uL (0-0.5); Hematocrit 39.4 % (35-47); Hemoglobin 12.6 g/dL (12.0-16.0); IMMATURE GRAN # 0.05 x10^3u/L (0.00-0.03); IMMATURE GRAN % 0.6 % (0.00-0.4); Lymphocyte (Absolute #) 2.48 x10^3/uL (1.0-4.6); Lymphocytes % 27.7 % (24.0-44.0); Mean Cell Volume 91.8 fL (78-100); Mean Corpuscular Hemoglobin 29.4 pg (26-32); Mean Platelet Volume 11.2 fL (7.5-11.0); Monocyte (Absolute #) 0.69 x10^3/uL (0.0-1.3); Monocytes % 7.7 % (0.0-12.0); Neutrophil % 62.3 % (36.0-66.0); Platelet Count 156 x10^3/uL (150-450); Red Blood Count 4.29 x10^6/uL (4.1-5.4); Red Cell Distribution Width 14.6 % (11.5-14.0)
--- NOTE | 2023-04-16 12:58 | XRAY ---
Indication: Chest pain. Comparison: March 29, 2023 Portable chest unchanged again demonstrating bilateral perihilar suture material and left mid to lower lung subsegmental atelectasis/scarring. Heart not enlarged again with left hilar calcified nodes and left pacemaker. No new/acute cardiopulmonary abnormalities.
[2023-04-16 13:20] LABS: ANION GAP 12.2 MEQ/L (5-15); BILIRUBIN,TOTAL 1.1 mg/dL (0.2-1.3); Calcium 8.9 mg/dL (8.4-10.2); Creatinine 1 1.2 mg/dL (0.52-1.04); EST GLOMERULAR FILTRATION RATE 48.1 ML/MIN; Potassium 4.8 mmol/L (3.5-5.1); Total Protein 6.8 g/dL (6.3-8.2)
[2023-04-16 13:30] LABS: INFLUENZA A NEGATIVE (NEGATIVE); INFLUENZA B NEGATIVE (NEGATIVE); RESPIRATORY SYNCTIAL VIRUS NEGATIVE (NEGATIVE); SARS-CoV-2 Xpert Express NEGATIVE (NEGATIVE)
[2023-04-16 15:03] VITALS: PULSE 60
--- NOTE | 2023-04-16 15:33 | ERPHSYRPT ---
- History of Present Illness Time Seen by Provider: 04/16/23 12:31 Source: patient Exam Limitations: no limitations Patient Subjective Stated Complaint: chest pain Triage Nursing Assessment: Pt brought to the ER by a friend, hypotensive, rates chest/back pain as 8/, had echo the other day at [facility], pulses normal, skin n/w/d, has a pacemaker Physician History: Patient is here with chest pain. Brought into the emergency department by her friend. Some initial hypotension. Patient rates chest, upper back pain out of 10. Patient had an echo at [facility] recently. Patient states that she was recently discharged here for pneumonia. Patient has known bronchitis, some mild shortness of breath associated with this today. She is in no acute distress. Patient has a pacemaker. Allergies/Adverse Reactions: clarithromycin [From Biaxin] Allergy (Severe, Verified 04/16/23 12:41) Hives Coconut Allergy (Severe, Verified 04/16/23 12:41) Difficulty Breathing green dye *RETIRED-07/03/12 [Green Dye] Allergy (Mild, Verified 04/16/23 12:41) Swelling swelling ears red dye [Red Dye] Allergy (Mild, Verified 04/16/23 12:41) Swelling ears swell adhesive Allergy (Verified 04/16/23 12:41) Rash cholestyramine Allergy (Verified 04/16/23 12:41) iodine Allergy (Verified 04/16/23 12:41) Wheezing latex Allergy (Verified 04/16/23 12:41) Rash nitrofurantoin [From Macrobid] Allergy (Verified 04/16/23 12:41) levofloxacin [From Levaquin] Adverse Reaction (Mild, Verified 04/16/23 12:41) Joint Aches Home Medications: Zolpidem Tartrate [Ambien] 10 mg PO HS 08/16/15 [History] Rosuvastatin Calcium 5 mg PO QHS 05/29/21 [History] Azelastine HCl 1 spray INTRANASAL HS 09/05/21 [History] Budesonide/Glycopyr/Formoterol [Breztri Aerosphere Inhaler] 2 puffs IH BID 09/05/21 [History] Fexofenadine HCl [Sonia Allergy] 180 mg PO HS 01/23/23 [History] Benzonatate 100 mg PO TIDPRN PRN 02/15/23 [History] Biotin 0 mcg PO HS 02/15/23 [History] Diphenoxylate HCl/Atropine [Diphenoxylate-Atrop 2.5-0.025] 1 tab PO BIDPRN PRN 02/15/23 [History] Esomeprazole Magnesium 40 mg PO QAM 02/15/23 [History] Furosemide 20 mg [Lasix 20 mg] 20 mg PO DAILY 02/15/23 [History] Insulin Lispro [Insulin Lispro Kwikpen U-100] 1 unit SQ ACHS 02/15/23 [History] Metoprolol Succinate 25 mg Xl* [Toprol-Xl 25MG Tablets] 25 mg PO HS 03/29/23 [History] Ondansetron [Ondansetron Odt ] 4 mg PO Q6HPRN PRN 03/29/23 [History] Valsartan 160 mg PO BID 03/29/23 [History] Hx Tetanus, Diphtheria Vaccination/Date Given: No Hx Influenza Vaccination/Date Given: Yes Hx Pneumococcal Vaccination/Date Given: Yes Travel Risk - International Travel Have you traveled outside of the country in past 3 weeks: No - Coronavirus Screening Are you exhibiting any of the following symptoms?: No Close contact with a COVID-19 positive Pt in past 14-21 Days: No - Vaccine Status Have you recieved a Covid-19 vaccination: Yes 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 - Vaccination Dates Date of 2cond Vaccination (if applicable): UNK Dates if Unknown: UNK - Past Medical History Pertinent Past Medical History: Yes Neurological History: No Pertinent History ENT History: Cataracts Cardiac History: Arrhythmia, Other Respiratory History: COPD, Other Endocrine Medical History: Diabetes Type II, Other Musculoskeletal History: Osteoarthritis GI Medical History: Diverticulitis, Gallbladder Disease, Pancreatitis History: No Pertinent History Psycho-Social History: Depression Female Reproductive Disorders: No Pertinent History Other Medical History: bruised liver, kidney disease in the past, seasonal allergies, lung ca - Past Surgical History Past Surgical History: Yes Neuro Surgical History: No Pertinent History Cardiac: Pacemaker Respiratory: Lobectomy Gastrointestinal: Appendectomy, Cholecystectomy, Hernia Repair Genitourinary: No Pertinent History Musculoskeletal: No Pertinent History, Joint Replacement, Orthopedic Surgery Female Surgical History: Hysterectomy, Other Other Surgical History: tonsilectomy, carpal tunnel, trigger finger X3, BLADDER SLING, colorectal, SI fusion, left wedge resection to lungs July 16, 2020, PACEMAKER 2022 - Social History Smoking Status: Former smoker How long have you smoked: 20 years Exposure to second hand smoke: No Drug Use: none Patient Lives Alone: Yes - Nursing Vital Signs Nursing Vital Signs: Initial Vital Signs Pulse Rate 60 04/16/23 12:27 Blood Pressure 91/57 04/16/23 12:27 O2 Sat by Pulse Oximetry 99 04/16/23 12:27 Pain Scale Pain Intensity 0 - Physical Exam SpO2: 99 Comments: 04/16/23 15:30 Review of Systems Constitutional: Negative for fever. HENT: Negative for congestion. Respiratory: Negative for shortness of breath. Cardiovascular: Chest pain and back Gastrointestinal: Negative for abdominal pain. Genitourinary: Negative for dysuria. Musculoskeletal: Back pain Skin: Negative for rash. Neurological: Negative for headaches. Psychiatric/Behavioral: Negative for behavioral problems. All other systems reviewed and are negative. Physical Exam Vitals signs and nursing note reviewed. Constitutional: Appearance: Patient is well-developed. HENT: Head: Normocephalic and atraumatic. Eyes: Conjunctiva/sclera: Conjunctivae normal. Neck: Trachea: No tracheal deviation. Cardiovascular: Rate and Rhythm: Normal rate. Pulmonary: Effort: Pulmonary effort is normal. No respiratory distress. Abdominal: Palpations: Abdomen is soft. Musculoskeletal: General: No deformity. Skin: General: Skin is warm and dry. Neurological: Mental Status: Patient is alert and oriented to person, place, and time, behavior normal. - Course Nursing assessment & vital signs reviewed: Yes EKG Interpreted by Me: Sinus Rhythm (Paced rhythm, no ST changes) Ordered Tests: Active Orders 24 hr Category Date Time Status Glass Smoother STAT Care 04/16/23 12:35 Completed EKG-ER Only STAT Care 04/16/23 12:34 Completed IV Insertion STAT Care 04/16/23 12:34 Completed CHEST 1 VIEW (PORTABLE) Stat Exams 04/16/23 12:34 Completed CHEST WITHOUT CONTRAST [CT] Stat Exams 04/16/23 15:18 Completed CBC W DIFF Stat Lab 04/16/23 12:40 Completed CK-Creatinine Phosphokinase Stat Lab 04/16/23 12:40 Completed CMP Stat Lab 04/16/23 12:40 Completed NT PRO BNPII Stat Lab 04/16/23 12:40 Completed TROPONIN Q4H Lab 04/16/23 12:40 Completed TROPONIN Q4H Lab 04/16/23 15:35 Completed Medication Summary Discontinued Medications Generic Name Dose Route Start Last Admin Trade Name Meche PRN Reason Stop Dose Admin Aspirin 324 mg 04/16/23 12:34 04/16/23 12:53 Aspirin 81 Mg Tab.Chew PO 04/16/23 12:35 324 mg STAT ONE Administration Aspirin Confirm 04/16/23 12:47 Aspirin 81 Mg Tab.Chew Administered 04/16/23 12:48 Dose 324 mg .ROUTE .STK-MED ONE Fentanyl Citrate 50 mcg 04/16/23 12:34 04/16/23 12:51 Fentanyl Citrate 100 Mcg/2 Ml* Vial IV 04/16/23 12:35 50 mcg STAT ONE Administration Fentanyl Citrate Confirm 04/16/23 12:50 Fentanyl Citrate 100 Mcg/2 Ml* Vial Administered 04/16/23 12:51 Dose 100 mcg .ROUTE .STK-MED ONE Sodium Chloride 1,000 mls @ 999 mls/hr 04/16/23 12:34 04/16/23 13:55 Sodium Chloride 0.9% 1000 Ml IV 04/16/23 13:34 Infused .Q1H1M STA Infusion Sodium Chloride Confirm 04/16/23 12:50 Sodium Chloride 0.9% 1000 Ml Administered 04/16/23 12:51 Dose 1,000 mls @ ud .ROUTE .STK-MED ONE Ondansetron HCl 4 mg 04/16/23 12:35 04/16/23 12:52 Ondansetron Hcl 4 Mg/2 Ml Vial IV 04/16/23 12:36 4 mg STAT ONE Administration Ondansetron HCl Confirm 04/16/23 12:47 Ondansetron Hcl 4 Mg/2 Ml Vial Administered 04/16/23 12:48 Dose 4 mg .ROUTE .STK-MED ONE Lab/Rad Data: Laboratory Result Diagrams 04/16/23 12:40 04/16/23 12:40 Laboratory Results 04/16/23 04/16/23 04/16/23 Range/Units 15:35 12:45 12:40 WBC (4.0-10.5) x10^3/uL RBC (4.1-5.4) x10^6/uL Hgb (12.0-16.0) g/dL Hct (35-47) % MCV (78-100) fL MCH (26-32) pg MCHC (32-36) g/dL RDW (11.5-14.0) % Plt Count (150-450) x10^3/uL MPV (7.5-11.0) fL Gran % (36.0-66.0) % Immature Gran % (Auto) (0.00-0.4) % Nucleat RBC Rel Count (0.00-0.1) % Eos # (Auto) (0-0.5) x10^3/uL Immature Gran # (Auto) (0.00-0.03) x10^3u/L Absolute Lymphs (auto) (1.0-4.6) x10^3/uL Absolute Monos (auto) (0.0-1.3) x10^3/uL Absolute Nucleated RBC (0.00-0.01) x10^3u/L Lymphocytes % (24.0-44.0) % Monocytes % (0.0-12.0) % Eosinophils % (0.00-5.0) % Basophils % (0.0-0.4) % Absolute Granulocytes (1.4-6.9) x10^3/uL Basophils # (0-0.4) x10^3/uL Sodium (137-145) mmol/L Potassium (3.5-5.1) mmol/L Chloride (98-107) mmol/L Carbon Dioxide (22-30) mmol/L Anion Gap (5-15) MEQ/L BUN (7-17) mg/dL Creatinine (0.52-1.04) mg/dL Estimated GFR ML/MIN Glucose (74-106) mg/dL Calcium (8.4-10.2) mg/dL Total Bilirubin (0.2-1.3) mg/dL AST (14-36) U/L ALT (0-35) U/L Alkaline Phosphatase (38-126) U/L Creatine Kinase (30-135) U/L Troponin I < 0.012 < 0.012 (0.000-0.034) ng/mL NT-Pro-B Natriuret Pep (<300) pg/mL Serum Total Protein (6.3-8.2) g/dL Albumin (3.5-5.0) g/dL Influenza Type A Ag NEGATIVE (NEGATIVE) Influenza Type B Ag NEGATIVE (NEGATIVE) RSV (PCR) NEGATIVE (NEGATIVE) SARS-CoV-2 (PCR) NEGATIVE (NEGATIVE) 04/16/23 04/16/23 Range/Units 12:40 12:40 WBC 9.0 (4.0-10.5) x10^3/uL RBC 4.29 (4.1-5.4) x10^6/uL Hgb 12.6 (12.0-16.0) g/dL Hct 39.4 (35-47) % MCV 91.8 (78-100) fL MCH 29.4 (26-32) pg MCHC 32.0 (32-36) g/dL RDW 14.6 H (11.5-14.0) % Plt Count 156 (150-450) x10^3/uL MPV 11.2 H (7.5-11.0) fL Gran % 62.3 (36.0-66.0) % Immature Gran % (Auto) 0.6 H (0.00-0.4) % Nucleat RBC Rel Count 0.0 (0.00-0.1) % Eos # (Auto) 0.14 (0-0.5) x10^3/uL Immature Gran # (Auto) 0.05 H (0.00-0.03) x10^3u/L Absolute Lymphs (auto) 2.48 (1.0-4.6) x10^3/uL Absolute Monos (auto) 0.69 (0.0-1.3) x10^3/uL Absolute Nucleated RBC 0.00 (0.00-0.01) x10^3u/L Lymphocytes % 27.7 (24.0-44.0) % Monocytes % 7.7 (0.0-12.0) % Eosinophils % 1.6 (0.00-5.0) % Basophils % 0.1 (0.0-0.4) % Absolute Granulocytes 5.58 (1.4-6.9) x10^3/uL Basophils # 0.01 (0-0.4) x10^3/uL Sodium 135 L (137-145) mmol/L Potassium 4.8 (3.5-5.1) mmol/L Chloride 103 (98-107) mmol/L Carbon Dioxide 25 (22-30) mmol/L Anion Gap 12.2 (5-15) MEQ/L BUN 39 H (7-17) mg/dL Creatinine 1.20 H (0.52-1.04) mg/dL Estimated GFR 48.1 ML/MIN Glucose 144 H (74-106) mg/dL Calcium 8.9 (8.4-10.2) mg/dL Total Bilirubin 1.10 (0.2-1.3) mg/dL AST 32 (14-36) U/L ALT 43 H (0-35) U/L Alkaline Phosphatase 69 (38-126) U/L Creatine Kinase 27 L (30-135) U/L Troponin I (0.000-0.034) ng/mL NT-Pro-B Natriuret Pep 238 (<300) pg/mL Serum Total Protein 6.8 (6.3-8.2) g/dL Albumin 4.0 (3.5-5.0) g/dL Influenza Type A Ag (NEGATIVE) Influenza Type B Ag (NEGATIVE) RSV (PCR) (NEGATIVE) SARS-CoV-2 (PCR) (NEGATIVE) - Progress Progress: improved Progress Note: 04/16/23 15:32 Differential diagnosis includes: PNA, STEMI, NSTEMI, other infection, musculoskeletal pain, pneumothorax - We'll obtain basic labs, fluids, EKG, troponin, chest x-ray - EKG shows no ST changes - my read - O2 saturations consistently greater than 95%. - CXR shows no pneumonia, pneumothorax - my read Reevaluation: Patient's chest pain has completely resolved here. First cardiac marker negative. We will obtain repeat cardiac marker. Chest x-ray shows no pneumonias. Given recent pneumonia, hospitalization I will obtain a CT scan of the chest. Patient has a contrast dye allergy. She is adamant about this. Therefore unfortunately we cannot get a CTA to evaluate pulmonary embolism or aortic dissection. I did discuss this with the patient. She states understanding. I discussed pretreatment options, steroids, Benadryl. Patient states that given chest pain is currently chest pain-free. She will hold off on a contrasted scan. 04/16/23 17:59 Reevaluation: Second troponin is normal. Patient now has 2 negative troponins over hospital stay. CT scan did not demonstrate any large aortic dissection or PE. Not the perfect study given no contrast. However no large PE or dissection was seen. Patient is completely chest pain-free. Given that she is high risk I did offer the patient admission overnight. I discussed risks and benefits of staying. Patient ultimately decided to go home tonight. This is given her recent hospitalization she states that she would rather not stay. Appears her pneumonia has completely cleared as CT scan did not demonstrate any pneumonias. Plan for discharge home. Counseled pt/family regarding: lab results, diagnosis, need for follow-up, rad results - Departure Departure Disposition: Home Clinical Impression: Atypical chest pain Condition: Stable Critical Care Time: No Referrals: SKYLER CEJA NP [Primary Care Provider] - Follow up/PCP as directed Instructions: Angina (DC), Chest Pain (DC) Additional Instructions: Return here immediately for any new or changing symptoms. Do not hesitate to call 911 should anything change.
[2023-04-16 16:06] VITALS: RESP 15
--- NOTE | 2023-04-16 16:25 | XRAY ---
Indication: Chest pain. Pulmonary embolism. Pneumonia. Multiple contiguous images obtained through the chest without contrast. Comparison: July 25, 2022 Lack of IV contrast precludes evaluation for pulmonary embolus. Heart not enlarged again with left dual-lead pacemaker. Aorta is normal in course and caliber. Again bilateral hilar suture material and chunky bilateral hilar calcified nodes. No pathologic mediastinal/hilar lymphadenopathy. Lungs again hyperinflated with scattered bilateral fibrosis/scarring and tiny calcified granulomas. No suspicious pulmonary mass/nodule, infiltrate, or effusion. Bony thorax intact again with osteopenia and moderate degenerative changes throughout the spine. Limited upper abdomen again demonstrates epigastric and cholecystectomy surgical clips. Impression: 1. Pulmonary embolus evaluation limited on this noncontrast exam. 2. Again chronic findings including postsurgical changes, chronic bony findings, and old granulomatous disease. 3. Remaining CT chest without contrast exam is negative.
[2023-04-16 16:48] VITALS: O2SAT 99
[2023-04-16 17:04] VITALS: BP 113/45
== END 2023-04-16 17:09 | disposition home or self-care (01) ==
LOC: ED 12:25
DX: R07.89 Other chest pain (principal); E11.9 Type 2 diabetes mellitus without complications; Z79.4 Long term (current) use of insulin; Z79.899 Other long term (current) drug therapy; Z20.828 Contact with and (suspected) exposure to other viral communicable diseases; Z95.0 Presence of cardiac pacemaker
CPT/HCPCS: 0241U; 36000; 36415; 71045; 71250; 80053; 82550; 83880; 84484; 85025; 93005; 93041; 96360; 96374; 96375; 99284; J2405; J3010; A9270-GY

== ENCOUNTER 2023-07-15 10:52 | Emergency (ER) | payer MEDICARE, OTHER ==
[2023-07-15 11:19] VITALS: TEMP 98.4
[2023-07-15] MEDS ORDERED: solu-MEDROL 125 MG, Sterile H2O 10 ml 2 ML IV ONE (11:29)
[2023-07-15] MEDS ORDERED: DUONEB 0.5-3 MG/3 ml Neb IH ONE (11:39)
[2023-07-15 11:44] LABS: Absolute Neutrophil Ct (ANC) 5.81 x10^3/uL (1.4-6.9); BASOPHIL % 0.5 % (0.0-0.4); Basophil (Absolute #) 0.04 x10^3/uL (0-0.4); Eosinophil % 3.4 % (0.00-5.0); Eosinophil (Absolute #) 0.27 x10^3/uL (0-0.5); Hematocrit 35.4 % (35-47); Hemoglobin 11.5 g/dL (12.0-16.0); IMMATURE GRAN # 0.02 x10^3u/L (0.00-0.03); IMMATURE GRAN % 0.3 % (0.00-0.4); Lymphocyte (Absolute #) 1.19 x10^3/uL (1.0-4.6); Mean Cell Volume 88.5 fL (78-100); Mean Corpuscular Hemoglobin 28.8 pg (26-32); Mean Corpuscular Hgb Concent. 32.5 g/dL (32-36); Mean Platelet Volume 10.9 fL (7.5-11.0); Monocytes % 7.6 % (0.0-12.0); Neutrophil % 73.2 % (36.0-66.0); Platelet Count 207 x10^3/uL (150-450); Red Cell Distribution Width 13.2 % (11.5-14.0); White Blood Count 7.9 x10^3/uL (4.0-10.5)
[2023-07-15] MEDS: DUONEB 0.5-3 MG/3 ml Neb IH ONE (11:48)
[2023-07-15 11:55] VITALS: PULSE 63; RESP 18
--- NOTE | 2023-07-15 12:03 | ERPHSYRPT ---
- History of Present Illness Time Seen by Provider: 07/15/23 12:01 Source: patient Exam Limitations: no limitations Patient Subjective Stated Complaint: Cough Triage Nursing Assessment: Patient ambulated back to ED and transferred self to bed. Patient A+O X.3 Patient's skin pink, warm and dry. Patient complains of intermittent cough since Last sunday. Patient states she was seen by her PCP and got a steroid IM injection. Patient complains of productive cough with thick green sputum. Wheezing noted to lungs. Patient denies pain or discomfort. Physician History: Patient complains of intermittent cough since Last sunday. Patient states she was seen by her PCP and got a steroid IM injection. Patient complains of pro ductive cough with thick green sputum. Wheezing noted to lungs. Patient denies pain or discomfort. Timing/Duration: week(s) (1 week) Associated Symptoms: cough, wheezing Allergies/Adverse Reactions: clarithromycin [From Biaxin] Allergy (Severe, Verified 07/15/23 11:11) Hives Coconut Allergy (Severe, Verified 07/15/23 11:11) Difficulty Breathing green dye *RETIRED-07/03/12 [Green Dye] Allergy (Mild, Verified 07/15/23 11:11) Swelling swelling ears red dye [Red Dye] Allergy (Mild, Verified 07/15/23 11:11) Swelling ears swell adhesive Allergy (Verified 07/15/23 11:11) Rash cholestyramine Allergy (Verified 07/15/23 11:11) iodine Allergy (Verified 07/15/23 11:11) Wheezing latex Allergy (Verified 07/15/23 11:11) Rash nitrofurantoin [From Macrobid] Allergy (Verified 07/15/23 11:11) levofloxacin [From Levaquin] Adverse Reaction (Mild, Verified 07/15/23 11:11) Joint Aches Home Medications: Zolpidem Tartrate [Ambien] 10 mg PO HS 08/16/15 [History] Rosuvastatin Calcium 5 mg PO QHS 05/29/21 [History] Azelastine HCl 1 spray INTRANASAL HS 09/05/21 [History] Budesonide/Glycopyr/Formoterol [Breztri Aerosphere Inhaler] 2 puffs IH BID 09/05/21 [History] Fexofenadine HCl [Sonia Allergy] 180 mg PO HS 01/23/23 [History] Benzonatate 100 mg PO TIDPRN PRN 02/15/23 [History] Biotin 0 mcg PO HS 02/15/23 [History] Diphenoxylate HCl/Atropine [Diphenoxylate-Atrop 2.5-0.025] 1 tab PO BIDPRN PRN 02/15/23 [History] Esomeprazole Magnesium 40 mg PO QAM 02/15/23 [History] Furosemide 20 mg [Lasix 20 mg] 20 mg PO DAILY 02/15/23 [History] Insulin Lispro [Insulin Lispro Kwikpen U-100] 1 unit SQ ACHS 02/15/23 [History] Metoprolol Succinate 25 mg Xl* [Toprol-Xl 25MG Tablets] 25 mg PO HS 03/29/23 [History] Ondansetron [Ondansetron Odt ] 4 mg PO Q6HPRN PRN 03/29/23 [History] Valsartan 160 mg PO BID 03/29/23 [History] Hx Tetanus, Diphtheria Vaccination/Date Given: No Hx Influenza Vaccination/Date Given: Yes Hx Pneumococcal Vaccination/Date Given: Yes Immunizations Up to Date: Yes Travel Risk - International Travel Have you traveled outside of the country in past 3 weeks: No - Emerging Infectious Disease Are you exhibiting symptoms associated with any current EIDs: No - Review of Systems Constitutional: No Fever, No Chills Eyes: No Symptoms Ears, Nose, & Throat: No Symptoms Respiratory: Cough, Dyspnea Cardiac: No Chest Pain, No Edema, No Syncope Abdominal/Gastrointestinal: No Abdominal Pain, No Nausea, No Vomiting, No Diarrhea Genitourinary Symptoms: No Dysuria Musculoskeletal: No Back Pain, No Neck Pain Skin: No Rash Neurological: No Dizziness, No Focal Weakness, No Sensory Changes Psychological: No Symptoms Endocrine: No Symptoms All Other Systems: Reviewed and Negative - Past Medical History Pertinent Past Medical History: Yes Neurological History: No Pertinent History ENT History: Cataracts Cardiac History: Arrhythmia, Other Respiratory History: COPD, Other Endocrine Medical History: Diabetes Type II, Other Musculoskeletal History: Osteoarthritis GI Medical History: Diverticulitis, Gallbladder Disease, Pancreatitis History: No Pertinent History Psycho-Social History: Depression Female Reproductive Disorders: No Pertinent History Other Medical History: bruised liver, kidney disease in the past, seasonal allergies, lung ca - Past Surgical History Past Surgical History: Yes Neuro Surgical History: No Pertinent History Cardiac: Pacemaker Respiratory: Lobectomy Gastrointestinal: Appendectomy, Cholecystectomy, Hernia Repair Genitourinary: No Pertinent History Musculoskeletal: No Pertinent History, Joint Replacement, Orthopedic Surgery Female Surgical History: Hysterectomy, Other Other Surgical History: tonsilectomy, carpal tunnel, trigger finger X3, BLADDER SLING, colorectal, SI fusion, left wedge resection to lungs July 16, 2020, [facility]ER 2022 - Social History Smoking Status: Former smoker How long have you smoked: 20 years Exposure to second hand smoke: No Drug Use: none Patient Lives Alone: Yes - Nursing Vital Signs Nursing Vital Signs: Initial Vital Signs Temperature 98.4 F 07/15/23 11:12 Pulse Rate 60 07/15/23 11:12 Respiratory Rate 20 07/15/23 11:12 Blood Pressure 147/82 07/15/23 11:12 O2 Sat by Pulse Oximetry 99 07/15/23 11:12 Pain Scale Pain Intensity 0 - Physical Exam General Appearance: no apparent distress, alert Eye Exam: PERRL/EOMI Neck Exam: normal inspection, supple Respiratory Exam: diminished breath sounds, rhonchi, wheezing Cardiovascular/Chest Exam: normal heart sounds, regular rate/rhythm Abdominal/Gastrointestinal Exam: soft, No tenderness, No distention, No mass Extremity Exam: non-tender, normal range of motion, normal inspection, no calf tenderness, no pedal edema Neurologic Exam: alert, 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, cooperative, 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 No acute infiltrates), Reviewed by me Ordered Tests: Active Orders 24 hr Category Date Time Status EKG-ER Only STAT Care 07/15/23 11:29 Active CHEST 2 VIEWS (PA AND LAT) Stat Exams 07/15/23 11:29 Taken CBC W DIFF Stat Lab 07/15/23 11:41 Completed CMP Stat Lab 07/15/23 11:41 Completed NT PRO BNPII Stat Lab 07/15/23 11:41 Completed TROPONIN Stat Lab 07/15/23 11:41 Completed Respiratory Therapy Assessment DAILY RT 07/15/23 11:51 Active Medication Summary Generic Name Dose Route Start Last Admin Trade Name Meche PRN Reason Stop Dose Admin Sodium Chloride 1,000 mls @ 50 mls/hr 07/15/23 11:30 Sodium Chloride 0.9% 1000 Ml IV 08/14/23 11:29 .Q20H BENI Ceftriaxone Sodium 1 gm in 100 mls @ 200 mls/hr 07/15/23 12:48 Rocephin 1 Gm / 100 Ml Nacl IV 07/15/23 13:17 STAT ONE Discontinued Medications Generic Name Dose Route Start Last Admin Trade Name Meche PRN Reason Stop Dose Admin Albuterol/Ipratropium 3 ml 07/15/23 11:29 07/15/23 11:48 Ipratropium/Albuterol Sulfate 3 Ml Ampul.Neb IH 07/15/23 11:30 3 ml STAT ONE Administration Albuterol/Ipratropium Confirm 07/15/23 11:39 Ipratropium/Albuterol Sulfate 3 Ml Ampul.Neb Administered 07/15/23 11:40 Dose 3 ml IH .STK-MED ONE Methylprednisolone Sodium 0 mg 07/15/23 11:29 Succinate 125 mg/ Sterile IV 07/15/23 11:30 Water 2 ml STAT ONE Lab/Rad Data: Laboratory Result Diagrams 07/15/23 11:41 07/15/23 11:41 Laboratory Results 07/15/23 07/15/23 07/15/23 Range/Units 11:41 11:41 11:41 WBC (4.0-10.5) x10^3/uL RBC (4.1-5.4) x10^6/uL Hgb (12.0-16.0) g/dL Hct (35-47) % MCV (78-100) fL MCH (26-32) pg MCHC (32-36) g/dL RDW (11.5-14.0) % Plt Count (150-450) x10^3/uL MPV (7.5-11.0) fL Gran % (36.0-66.0) % Immature Gran % (Auto) (0.00-0.4) % Nucleat RBC Rel Count (0.00-0.1) % Eos # (Auto) (0-0.5) x10^3/uL Immature Gran # (Auto) (0.00-0.03) x10^3u/L Absolute Lymphs (auto) (1.0-4.6) x10^3/uL Absolute Monos (auto) (0.0-1.3) x10^3/uL Absolute Nucleated RBC (0.00-0.01) x10^3u/L Lymphocytes % (24.0-44.0) % Monocytes % (0.0-12.0) % Eosinophils % (0.00-5.0) % Basophils % (0.0-0.4) % Absolute Granulocytes (1.4-6.9) x10^3/uL Basophils # (0-0.4) x10^3/uL Sodium 139 (135-145) mmol/L Potassium 3.6 (3.5-5.1) mmol/L Chloride 105 (98-107) mmol/L Carbon Dioxide 30 (22-30) mmol/L Anion Gap 8.1 (5-15) MEQ/L BUN 17 (7-17) mg/dL Creatinine 0.80 (0.52-1.04) mg/dL Estimated GFR 78.2 ML/MIN Glucose 93 (74-106) mg/dL Calcium 8.5 (8.4-10.2) mg/dL Total Bilirubin 0.70 (0.2-1.3) mg/dL AST 18 (14-36) U/L ALT 16 (0-35) U/L Alkaline Phosphatase 82 (38-126) U/L Troponin I < 0.012 (0.000-0.033) ng/mL NT-Pro-B Natriuret Pep 765 (<300) pg/mL Serum Total Protein 6.3 (6.3-8.2) g/dL Albumin 3.6 (3.5-5.0) g/dL Influenza Type A Ag NEGATIVE (NEGATIVE) Influenza Type B Ag NEGATIVE (NEGATIVE) RSV (PCR) NEGATIVE (NEGATIVE) SARS-CoV-2 (PCR) NEGATIVE (NEGATIVE) 07/15/23 Range/Units 11:41 WBC 7.9 (4.0-10.5) x10^3/uL RBC 4.00 L (4.1-5.4) x10^6/uL Hgb 11.5 L (12.0-16.0) g/dL Hct 35.4 (35-47) % MCV 88.5 (78-100) fL MCH 28.8 (26-32) pg MCHC 32.5 (32-36) g/dL RDW 13.2 (11.5-14.0) % Plt Count 207 (150-450) x10^3/uL MPV 10.9 (7.5-11.0) fL Gran % 73.2 H (36.0-66.0) % Immature Gran % (Auto) 0.3 (0.00-0.4) % Nucleat RBC Rel Count 0.0 (0.00-0.1) % Eos # (Auto) 0.27 (0-0.5) x10^3/uL Immature Gran # (Auto) 0.02 (0.00-0.03) x10^3u/L Absolute Lymphs (auto) 1.19 (1.0-4.6) x10^3/uL Absolute Monos (auto) 0.60 (0.0-1.3) x10^3/uL Absolute Nucleated RBC 0.00 (0.00-0.01) x10^3u/L Lymphocytes % 15.0 L (24.0-44.0) % Monocytes % 7.6 (0.0-12.0) % Eosinophils % 3.4 (0.00-5.0) % Basophils % 0.5 (0.0-0.4) % Absolute Granulocytes 5.81 (1.4-6.9) x10^3/uL Basophils # 0.04 (0-0.4) x10^3/uL Sodium (135-145) mmol/L Potassium (3.5-5.1) mmol/L Chloride (98-107) mmol/L Carbon Dioxide (22-30) mmol/L Anion Gap (5-15) MEQ/L BUN (7-17) mg/dL Creatinine (0.52-1.04) mg/dL Estimated GFR ML/MIN Glucose (74-106) mg/dL Calcium (8.4-10.2) mg/dL Total Bilirubin (0.2-1.3) mg/dL AST (14-36) U/L ALT (0-35) U/L Alkaline Phosphatase (38-126) U/L Troponin I (0.000-0.033) ng/mL NT-Pro-B Natriuret Pep (<300) pg/mL Serum Total Protein (6.3-8.2) g/dL Albumin (3.5-5.0) g/dL Influenza Type A Ag (NEGATIVE) Influenza Type B Ag (NEGATIVE) RSV (PCR) (NEGATIVE) SARS-CoV-2 (PCR) (NEGATIVE) - Progress Progress: improved Air Movement: good Blood Culture(s) Obtained: No Antibiotics given: Yes Counseled pt/family regarding: lab results, diagnosis, need for follow-up, rad results Medical Desision Making - Diagnostic Testing Diagnostic test were ordered, analyzed, and reviewed by me: Yes Radiological Interpretation: Interpreted by me, Reviewed by me - Risk of complications Low Risk: Low risk of morbidity from additional dx testing or treatment The pt has a mod risk of morbidity or mortality based on: Need for prescription drug management - Departure Departure Disposition: Home Clinical Impression: COPD with chronic bronchitis, Chronic bronchitis with acute exacerbation Condition: Stable Critical Care Time: No Referrals: SKYLER CEJA NP [Primary Care Provider] - Follow up/PCP as directed Instructions: Chronic Obstructive Pulmonary Disease, Chronic Bronchitis (DC) Additional Instructions: Discharge/Care Plan JAIME CURTIS was seen on 07/15/23 in the Emergency Room. The patient was counseled regarding Diagnosis,Lab results, Imaging studies, need for follow up and when to return to the Emergency Room. Prescriptions given: Discharge Note I have spoken with the patient and/or caregivers. I have explained the patient's condition, diagnosis and treatment plan based on the information available to me at this time. I have answered the patient's and/or caregiver's questions and addressed any concerns. The patient and/or caregivers have as good understanding of the patient's diagnosis, condition and treatment plan as can be expected at this point. The vital signs have been stable. The patient's condition is stable and appropriate for discharge from the emergency department. The patient will pursue further outpatient evaluation with the primary care physician or other designated or consulting physician as outlined in the discharge instructions. The patient and/or caregivers are agreeable to this plan of care and follow-up instructions have been explained in detail. The patient and/or caregivers have received these instruction. The patient/and or caregivers are aware that any significant change in condition or worsening of symptoms should prompt an immediate return to this or the closest emergency department or call 911. JAIME CURTIS was seen on 07/15/23 n the Emergency Room. At that time you were treated for an emergent condition, during your visit Laboratory, Radiology and/or other procedures may have been ordered. It is very important that you follow-up with your Primary Care Physician SKYLER CEJA within the next 24-48 hours to review your Emergency Room visit and the final results of testing that was ordered. Some test results such as Urine Cultures, Blood Cultures, and other cultures if ordered will not be finalized for 24-48 hours. If you do not have a Primary Care Provider please call the medical records department at [phone] ext [phone] to obtain a copy of your results or you may sign into our patient portal to obtain these results by visiting us @ [email or web address] and completing the following steps: 1. Click on the Patient Portal link 2. Click the Patient Self Enrollment Link to complete the enrollment form and entering your 3. Once the enrollment form is completed you will receive an email with a temporary ID and password at the email address you provided. 4. Next choose a user name and password. Your user name must be at least 4 characters long and your password must be at least 4 characters long. 5. Choose a security question from the list and provide your answer to the question. If you already have signed into the Health Portal you may access your Health Care Information 02/10 by the following steps: 1. Login to our website @ [email or web address] 2. Enter your original user name and password. FAQS The [facility] Health Portal is an online tool that contains your Lab Results, Radiology Reports, Visit History, Discharge Instructions and Health Summary Lab and Radiology Results will not be available for 72 hours on the portal. The Portal is a secure site, passwords are encryted and URLs are re-written so they cannot be copied and pasted. You and authorized family members are the only ones who can access your Portal. Also there is a timeout feature that protects your information if you leave the Portal page open. If you have technical difficulty please use the Contact Us link on the page this will allow you to submit any questions you have regarding the Portal or you may contact the Medical Record Department at [phone] ext [phone]. Prescriptions: Cefdinir 300 mg PO BID #15 cap Methylprednisolone Packet [Medrol Dosepack] 4 mg PO UD #21 packet
[2023-07-15 12:09] LABS: ALBUMIN 3.6 g/dL (3.5-5.0); ALKALINE PHOSPHATASE 82 U/L (38-126); ANION GAP 8.1 MEQ/L (5-15); BLOOD UREA NITROGEN 17 mg/dL (7-17); CHLORIDE 105 mmol/L (98-107); Calcium 8.5 mg/dL (8.4-10.2); Carbon Dioxide 30 mmol/L (22-30); EST GLOMERULAR FILTRATION RATE 78.2 ML/MIN; Glucose 93 mg/dL (74-106); Potassium 3.6 mmol/L (3.5-5.1); SGOT/AST 18 U/L (14-36); SGPT/ALT 16 U/L (0-35); SODIUM 139 mmol/L (135-145); TROPONIN < 0.012 ng/mL (0.000-0.033); Total Protein 6.3 g/dL (6.3-8.2)
[2023-07-15 12:20] LABS: INFLUENZA A NEGATIVE (NEGATIVE); INFLUENZA B NEGATIVE (NEGATIVE); RESPIRATORY SYNCTIAL VIRUS NEGATIVE (NEGATIVE); SARS-CoV-2 Xpert Express NEGATIVE (NEGATIVE)
[2023-07-15 12:46] VITALS: BP 138/85
[2023-07-15] MEDS ORDERED: ROCEPHIN 1 GM / 100 ML NaCl 1 GM/100 ML IVPB IV ONE (12:48)
[2023-07-15] MEDS ORDERED: solu-MEDROL ONE (13:04)
[2023-07-15] MEDS ORDERED: ROCEPHIN 1 GM / 100 ML NaCl 0 GM/0 ML IVPB IV ONE (13:04)
[2023-07-15] MEDS ORDERED: Sterile H2O 10 ml IJ ONE (13:04)
[2023-07-15 13:06] VITALS: O2SAT 86
[2023-07-15] MEDS: Sodium Chloride 0.9% 1000 ML 1,000 ML IV SCH (13:08)
[2023-07-15] MEDS ORDERED: Rocephin 1000 MG INJ ONE (13:13)
[2023-07-15] MEDS ORDERED: XYLOCAINE 1% HCL 20 ML MDV ONE (13:14)
[2023-07-15] MEDS: solu-MEDROL 125 MG, Sterile H2O 10 ml 2 ML IM ONE (13:22)
[2023-07-15] MEDS: Rocephin 1000 MG INJ IM ONE (13:22)
--- NOTE | 2023-07-15 19:50 | XRAY ---
Indication: Wheezing, cough, and short of breath. Comparison: April 16, 2023 PA/lateral chest less inflated accentuating cardiopulmonary structures. Stable right apical surgical clips. No focal infiltrate, consolidation, or large effusion. Heart not enlarged again with left pacemaker and left hilar calcified nodes. Bony thorax intact again with osteopenia and mild degenerative changes. Upper abdomen again demonstrates epigastric surgical clips. Impression: Nonacute chest with chronic features.
== END 2023-07-15 13:40 | disposition home or self-care (01) ==
LOC: ED 10:52
DX: J44.1 Chronic obstructive pulmonary disease with (acute) exacerbation (principal); R05.1 Acute cough; R06.2 Wheezing; E11.9 Type 2 diabetes mellitus without complications; Z79.4 Long term (current) use of insulin; Z79.899 Other long term (current) drug therapy; Z79.52 Long term (current) use of systemic steroids
CPT/HCPCS: 0241U; 36415; 71046; 80053; 83880; 84484; 85025; 93005; 94640; 96365; 96372; 99284; J0696; J2919; A9270-GY

== ENCOUNTER 2023-07-25 22:45 | Emergency (ER) | payer MEDICARE, OTHER ==
--- NOTE | 2023-07-25 23:14 | ERPHSYRPT ---
- History of Present Illness Time Seen by Provider: 07/25/23 23:14 Physician History: 72-year-old female presents to our ED for evaluation of a skin tear to her right anterolateral leg. Injury is at the middle third area of the right lower leg. Injury just prior to arrival. Patient states she bumped her leg on furniture. No falls no other injuries reported. Minimal discomfort. Patient declined pain medication. Tetanus up-to-date. Symptoms are mild in intensity. No specific worsening or improving factors. Patient otherwise voices no other complaints or concerns at this time. Portions of this note were created with voice recognition technology. There may be grammatical, spelling, punctuation or sound alike errors Timing/Duration: today Severity: moderate Modifying Factors: Improves With: nothing Associated Symptoms: denies symptoms Allergies/Adverse Reactions: clarithromycin [From Biaxin] Allergy (Severe, Verified 07/25/23 22:55) Hives Coconut Allergy (Severe, Verified 07/25/23 22:55) Difficulty Breathing green dye *RETIRED-07/03/12 [Green Dye] Allergy (Mild, Verified 07/25/23 22:55) Swelling swelling ears red dye [Red Dye] Allergy (Mild, Verified 07/25/23 22:55) Swelling ears swell adhesive Allergy (Verified 07/25/23 22:55) Rash cholestyramine Allergy (Verified 07/25/23 22:55) iodine Allergy (Verified 07/25/23 22:55) Wheezing latex Allergy (Verified 07/25/23 22:55) Rash nitrofurantoin [From Macrobid] Allergy (Verified 07/25/23 22:55) levofloxacin [From Levaquin] Adverse Reaction (Mild, Verified 07/25/23 22:55) Joint Aches Home Medications: Zolpidem Tartrate [Ambien] 10 mg PO HS 08/16/15 [History] Rosuvastatin Calcium 5 mg PO QHS 05/29/21 [History] Azelastine HCl 1 spray INTRANASAL HS 09/05/21 [History] Budesonide/Glycopyr/Formoterol [Breztri Aerosphere Inhaler] 2 puffs IH BID 09/05/21 [History] Fexofenadine HCl [Sonia Allergy] 180 mg PO HS 01/23/23 [History] Benzonatate 100 mg PO TIDPRN PRN 12/07/23 [History] Biotin 0 mcg PO HS 02/15/23 [History] Diphenoxylate HCl/Atropine [Diphenoxylate-Atrop 2.5-0.025] 1 tab PO BIDPRN PRN 02/15/23 [History] Esomeprazole Magnesium 40 mg PO QAM 02/15/23 [History] Furosemide 20 mg [Lasix 20 mg] 20 mg PO DAILY 02/15/23 [History] Insulin Lispro [Insulin Lispro Kwikpen U-100] 1 unit SQ ACHS 02/15/23 [History] Metoprolol Succinate 25 mg Xl* [Toprol-Xl 25MG Tablets] 25 mg PO HS 03/29/23 [History] Ondansetron [Ondansetron Odt ] 4 mg PO Q6HPRN PRN 03/29/23 [History] Valsartan 160 mg PO BID 03/29/23 [History] Hx Tetanus, Diphtheria Vaccination/Date Given: No Hx Influenza Vaccination/Date Given: Yes Hx Pneumococcal Vaccination/Date Given: Yes Travel Risk - Emerging Infectious Disease Are you exhibiting symptoms associated with any current EIDs: No - Review of Systems Constitutional: No Symptoms, No Fever, No Chills Eyes: No Symptoms Ears, Nose, & Throat: No Symptoms Respiratory: No Symptoms, No Cough, No Dyspnea Cardiac: No Symptoms, No Chest Pain, No Edema, No Syncope Abdominal/Gastrointestinal: No Symptoms, No Abdominal Pain, No Nausea, No Vomiting, No Diarrhea Genitourinary Symptoms: No Symptoms, No Dysuria Musculoskeletal: No Symptoms, No Back Pain, No Neck Pain Skin: No Symptoms, No Rash Neurological: No Symptoms, No Dizziness, No Focal Weakness, No Sensory Changes Psychological: No Symptoms Endocrine: No Symptoms Hematologic/Lymphatic: No Symptoms Immunological/Allergic: No Symptoms All Other Systems: Reviewed and Negative - Past Medical History Pertinent Past Medical History: Yes Neurological History: No Pertinent History ENT History: Cataracts Cardiac History: Arrhythmia, Other Respiratory History: COPD, Other Endocrine Medical History: Diabetes Type II, Other Musculoskeletal History: Osteoarthritis GI Medical History: Diverticulitis, Gallbladder Disease, Pancreatitis History: No Pertinent History Psycho-Social History: Depression Female Reproductive Disorders: No Pertinent History Other Medical History: bruised liver, kidney disease in the past, seasonal allergies, lung ca - Past Surgical History Past Surgical History: Yes Neuro Surgical History: No Pertinent History Cardiac: Pacemaker Respiratory: Lobectomy Gastrointestinal: Appendectomy, Cholecystectomy, Hernia Repair Genitourinary: No Pertinent History Musculoskeletal: No Pertinent History, Joint Replacement, Orthopedic Surgery Female Surgical History: Hysterectomy, Other Other Surgical History: tonsilectomy, carpal tunnel, trigger finger X3, BLADDER SLING, colorectal, SI fusion, left wedge resection to lungs July 16, 2020, [facility] 2022 - Social History Smoking Status: Former smoker How long have you smoked: 20 years Exposure to second hand smoke: No Drug Use: none Patient Lives Alone: Yes - Physical Exam General Appearance: no apparent distress, alert Eye Exam: PERRL/EOMI, eyes nml inspection Ears, Nose, Throat Exam: normal ENT inspection, TMs normal, pharynx normal, moist mucous membranes Neck Exam: normal inspection, non-tender, supple, full range of motion Respiratory Exam: normal breath sounds, lungs clear, airway intact, No respiratory distress Cardiovascular Exam: regular rate/rhythm, normal heart sounds, normal peripheral pulses Gastrointestinal/Abdomen Exam: soft, normal bowel sounds, No tenderness, No mass Back Exam: normal inspection, normal range of motion, No CVA tenderness, No vertebral tenderness Extremity Exam: normal inspection, normal range of motion, pelvis stable, other (There is a triangular-shaped skin tear at the right lower leg middle third. Di mensions are approximately 2 cm x 2 cm. The skin tear is superficial. Slightly oozing. Patient is on Eliquis.) Neurologic Exam: alert, 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, cooperative, normal mood/affect, nml cerebellar function, nml station & gait, sensation nml, No motor deficits Skin Exam: normal color, warm, dry, No rash Lymphatic Exam: No adenopathy SpO2 Interpretation: normal SpO2: 98 O2 Delivery: Room Air - Course Nursing assessment & vital signs reviewed: Yes Ordered Tests: Active Orders 24 hr Category Date Time Status Wound Care STAT Care 07/25/23 23:03 Active - Progress Progress: improved Progress Note: 72-year-old female presents to our ED for evaluation of a skin tear right lower leg. The injury is superficial. Skin tear was repaired using Dermabond and Steri-Strips. Wound was irrigated copiously. No indication for antibiotics. Patient agrees to follow-up with her primary care doctor within 48 hours for evaluation. Portions of this note were created with voice recognition technology. There may be grammatical, spelling, punctuation or sound alike errors Complex problem addressed is low acute uncomplicated. Complex of data reviewed and analyzed is none. No specialized testing ordered. Diagnosis made based on history and physical examination. Risk of morbidity/mortality patient m anagement is low. Vital stable. Time spent to discharge patient approximately 10 minutes. Plan of care established for shared decision making. No social determinants of health present impede follow-up. Portions of this note were created with voice recognition technology. There may be grammatical, spelling, punctuation or sound alike errors 07/25/23 23:17 Counseled pt/family regarding: diagnosis, need for follow-up - Departure Departure Disposition: Home Clinical Impression: Skin tear Condition: Stable Critical Care Time: No Referrals: SKYLER CEJA, [employer] MANAGER [Primary Care Provider] - Follow up/PCP as directed Additional Instructions: Discharge/Care Plan JAIME CURTIS was seen on 07/25/23 in the Emergency Room. The patient was counseled regarding Diagnosis,Lab results, Imaging studies, need for follow up and when to return to the Emergency Room. Prescriptions given: Discharge Note I have spoken with the patient and/or caregivers. I have explained the patient's condition, diagnosis and treatment plan based on the information available to me at this time. I have answered the patient's and/or caregiver's questions and addressed any concerns. The patient and/or caregivers have as good understanding of the patient's diagnosis, condition and treatment plan as can be expected at this point. The vital signs have been stable. The patient's condition is stable and appropriate for discharge from the emergency department. The patient will pursue further outpatient evaluation with the primary care physician or other designated or consulting physician as outlined in the discharge instructions. The patient and/or caregivers are agreeable to this plan of care and follow-up instructions have been explained in detail. The patient and/or caregivers have received these instruction. The patient/and or caregivers are aware that any significant change in condition or worsening of symptoms should prompt an immediate return to this or the closest emergency department or call 911.
[2023-07-25 23:15] VITALS: BP 127/72; PULSE 60; RESP 18; TEMP 97.4
[2023-07-25 23:19] VITALS: O2SAT 98
== END 2023-07-25 23:24 | disposition home or self-care (01) ==
LOC: ED 22:45
DX: S81.811A Laceration without foreign body, right lower leg, initial encounter (principal); W22.03XA Walked into furniture, initial encounter; E11.9 Type 2 diabetes mellitus without complications; Z79.4 Long term (current) use of insulin; Z79.899 Other long term (current) drug therapy
CPT/HCPCS: 12001; 99281

== ENCOUNTER 2023-12-26 23:04 | Emergency (ER) | payer MEDICARE, OTHER ==
--- NOTE | 2023-12-27 00:06 | ERPHSYRPT ---
- History of Present Illness Time Seen by Provider: 12/26/23 23:55 Source: patient Exam Limitations: no limitations Patient Subjective Stated Complaint: c/o of falling and injury of the right knee Triage Nursing Assessment: Patient brought self to ED after falling out of bed and injuring right knee. Patient rates pain 8/10 and has a 3cm x 5cm skin tear on right knee. Patient denies LOC, patient thought she was trying to get up to go to the bathroom and ended up flat on the floor. Hypertensive, skin w/n/d, gait weak, pt doesn't appear to be in any distress at this time. Physician History: 73-year-old female presents to our ED for evaluation of right knee pain. Patient states she slid out of her bed her knee buckled and caused her to fall. Patient landed onto her right knee. Patient concerned as her right knee is a prosthesis. No other injuries reported. The fall was not associated with any neuro cardiovascular symptomology. No associated chest pain or shortness of breath. No nausea vomiting or diaphoresis. No numbness tingling or weakness. Patient describes pain at the right knee as an ache rated 7-8 out of 10. Pain worse with movement and palpation. Pain improved with rest. No associated foot ankle hip back pain. Patient otherwise feels well. She voices no other complaints or concerns at this time. Portions of this note were created with voice recognition technology. There may be grammatical, spelling, punctuation or sound alike errors Timing/Duration: today Severity: moderate Modifying Factors: Improves With: nothing Associated Symptoms: denies symptoms Allergies/Adverse Reactions: clarithromycin [From Biaxin] Allergy (Severe, Verified 07/25/23 22:55) Hives Coconut Allergy (Severe, Verified 12/26/23 23:50) Difficulty Breathing green dye *RETIRED-07/03/12 [Green Dye] Allergy (Mild, Verified 07/25/23 22:55) Swelling swelling ears red dye [Red Dye] Allergy (Mild, Verified 07/25/23 22:55) Swelling ears swell adhesive Allergy (Verified 07/25/23 22:55) Rash cholestyramine Allergy (Verified 07/25/23 22:55) iodine Allergy (Verified 07/25/23 22:55) Wheezing latex Allergy (Verified 07/25/23 22:55) Rash nitrofurantoin [From Macrobid] Allergy (Verified 07/25/23 22:55) levofloxacin [From Levaquin] Adverse Reaction (Mild, Verified 07/25/23 22:55) Joint Aches Home Medications: Zolpidem Tartrate [Ambien] 10 mg PO HS 08/16/15 [History] Budesonide/Glycopyr/Formoterol [Breztri Aerosphere Inhaler] 2 puffs IH BID 09/05/21 [History] Fexofenadine HCl [Sonia Allergy] 180 mg PO HS PRN PRN 01/23/23 [History] Amiodarone HCl 200 mg PO HS 07/25/23 [History] Albuterol Common Canister [Ventolin Common Canister] 2 puff IH BID 09/20/23 [History] Insulin Glargine,Hum.rec.anlog [Lantus] 20 - 22 unit SQ HS 09/20/23 [History] Metoprolol Succinate 50 mg PO DAILY 09/20/23 [History] Furosemide [Lasix] 20 mg PO DAILY 11/21/23 [History] Hx Tetanus, Diphtheria Vaccination/Date Given: Yes Hx Influenza Vaccination/Date Given: No Hx Pneumococcal Vaccination/Date Given: No Travel Risk - International Travel Have you traveled outside of the country in past 3 weeks: No - Emerging Infectious Disease Are you exhibiting symptoms associated with any current EIDs: No - Review of Systems Constitutional: No Symptoms, No Fever, No Chills Eyes: No Symptoms Ears, Nose, & Throat: No Symptoms Respiratory: No Symptoms, No Cough, No Dyspnea Cardiac: No Symptoms, No Chest Pain, No Edema, No Syncope Abdominal/Gastrointestinal: No Symptoms, No Abdominal Pain, No Nausea, No Vomit ing, No Diarrhea Genitourinary Symptoms: No Symptoms, No Dysuria Musculoskeletal: No Symptoms, No Back Pain, No Neck Pain Skin: No Symptoms, No Rash Neurological: No Symptoms, No Dizziness, No Focal Weakness, No Sensory Changes Psychological: No Symptoms Endocrine: No Symptoms Hematologic/Lymphatic: No Symptoms Immunological/Allergic: No Symptoms All Other Systems: Reviewed and Negative - Past Medical History Pertinent Past Medical History: Yes Neurological History: No Pertinent History ENT History: Cataracts Cardiac History: Arrhythmia, Other Respiratory History: COPD, Other Endocrine Medical History: Diabetes Type II, Other Musculoskeletal History: Osteoarthritis GI Medical History: Diverticulitis, Gallbladder Disease, Pancreatitis History: No Pertinent History Psycho-Social History: Depression Female Reproductive Disorders: No Pertinent History Other Medical History: bruised liver, kidney disease in the past, seasonal allergies, lung ca, MRCP, Pancreas cyst - Past Surgical History Past Surgical History: Yes Neuro Surgical History: No Pertinent History Cardiac: Pacemaker Respiratory: Lobectomy Gastrointestinal: Appendectomy, Cholecystectomy, Hernia Repair Genitourinary: No Pertinent History Musculoskeletal: No Pertinent History, Joint Replacement, Orthopedic Surgery Female Surgical History: Hysterectomy, Other Other Surgical History: tonsilectomy, carpal tunnel, trigger finger X3, BLADDER SLING, colorectal, SI fusion, left wedge resection to lungs July 16, 2020, [facility] 2022 - Social History Smoking Status: Former smoker How long have you smoked: 20 years Exposure to second hand smoke: No Drug Use: none Patient Lives Alone: Yes - Social Determinants of Health Will the patient participate in the screening: Yes Do you worry about a steady place to live?: No Do you have any problems with any of the following?: No known problems In the past 12 months,have you had to go without utilities?: No Transportation Issues: No Has anyone in your support network made you feel unsafe?: No Have you or anyone in your house had to go without enough: No - Nursing Vital Signs Nursing Vital Signs: Initial Vital Signs Temperature 97.2 F 12/26/23 23:39 Pulse Rate 62 12/26/23 23:39 Respiratory Rate 17 12/26/23 23:39 Blood Pressure 158/95 12/26/23 23:39 O2 Sat by Pulse Oximetry 97 12/26/23 23:39 Pain Scale Pain Intensity 8 - Physical Exam General Appearance: no apparent distress, alert Eye Exam: PERRL/EOMI, eyes nml inspection Ears, Nose, Throat Exam: normal ENT inspection, TMs normal, pharynx normal, moist mucous membranes Neck Exam: normal inspection, non-tender, supple, full range of motion Respiratory Exam: normal breath sounds, lungs clear, airway intact, No respiratory distress Cardiovascular Exam: regular rate/rhythm, normal heart sounds, normal peripheral pulses Gastrointestinal/Abdomen Exam: soft, normal bowel sounds, No tenderness, No mass Back Exam: normal inspection, normal range of motion, No CVA tenderness, No vertebral tenderness Extremity Exam: normal inspection, normal range of motion, pelvis stable, other (Superficial skin tear about the size of a quarter observed at the anterior patella. No active bleeding. The involved extremities neurovascular intact distally compartments are soft cap refill less than 2 seconds. Knee ligaments are stable) Neurologic Exam: alert, 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, cooperative, normal mood/affect, nml cerebellar function, nml station & gait, sensation nml, No motor deficits Skin Exam: normal color, warm, dry, No rash Lymphatic Exam: No adenopathy SpO2 Interpretation: normal O2 Delivery: Room Air - Course Nursing assessment & vital signs reviewed: Yes - Radiology Exams Knee X-ray Interpretation: Interpreted by me (No fracture or dislocation. Intact knee prosthesis) Ordered Tests: Active Orders 24 hr Category Date Time Status KNEE (1 OR 2 VIEW) Stat Exams 12/27/23 00:05 Taken Medication Summary Discontinued Medications Generic Name Dose Route Start Last Admin Trade Name Freq PRN Reason Stop Dose Admin 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 975 mg 12/27/23 00:05 12/27/23 00:15 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 325 Mg Tablet PO 12/27/23 00:06 975 mg STAT ONE Administration 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 Confirm 12/27/23 00:13 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 325 Mg Tablet Administered 12/27/23 00:14 Dose 975 mg .ROUTE .STiWarda-MED ONE - Progress Progress: improved Progress Note: 73-year-old female presents to emergency department for evaluation status post mechanical fall. Patient presents with right knee pain and a skin tear to the anterior patella. Physical exam reveals all knee ligaments are stable. The involved extremities neurovascular tact distally compartments are soft. X-ray negative for fracture dislocation. Intact knee prosthesis. Patient ambulated throughout our ED. She had no problems walking. Pain was well-controlled. Patient's O2 sat was 97% with activity. Patient otherwise asymptomatic. She states he is ready for discharge. Patient agrees to follow-up with her primary care doctor within 48 hours for reevaluation. The skin tear was repaired with Steri-Strips and a dressing applied by RN. No indication for antibiotics. Patient voices no other complaints or concerns at this time. Portions of this note were created with voice recognition technology. There may be grammatical, spelling, punctuation or sound alike errors Complexity of problem addressed is moderate acute complicated. No critical care time. Complex of data reviewed and analyzed is moderate. Dr. Fernandez independently reviewed the x-ray of the involved knee. Risk of complication and or risk of morbidity/mortality of patient management is low. Vital stable. Time spent to discharge patient is approximately 10 minutes. Plan of care established for shared decision making. No social determinants of health present to impede follow-up. Portions of this note were created with voice recognition technology. There may be grammatical, spelling, punctuation or sound alike errors 12/27/23 00:58 Counseled pt/family regarding: diagnosis, need for follow-up, rad results - Departure Departure Disposition: Home Clinical Impression: Fall, Skin tear, Knee sprain Condition: Stable Critical Care Time: No Referrals: [facility] [Primary Care Provider] - Follow up/PCP as directed Additional Instructions: Discharge/Care Plan JAIME CURTIS was seen on 12/27/23 in the Emergency Room. The patient was counseled regarding Diagnosis,Lab results, Imaging studies, need for follow up and when to return to the Emergency Room. Prescriptions given: Discharge Note I have spoken with the patient and/or caregivers. I have explained the patient's condition, diagnosis and treatment plan based on the information available to me at this time. I have answered the patient's and/or caregiver's questions and addressed any concerns. The patient and/or caregivers have as good understanding of the patient's diagnosis, condition and treatment plan as can be expected at this point. The vital signs have been stable. The patient's condition is stable and appropriate for discharge from the emergency department. The patient will pursue further outpatient evaluation with the primary care physician or other designated or consulting physician as outlined in the discharge instructions. The patient and/or caregivers are agreeable to this plan of care and follow-up instructions have been explained in detail. The patient and/or caregivers have received these instruction. The patient/and or caregivers are aware that any significant change in condition or worsening of symptoms should prompt an immediate return to this or the closest emergency department or call 911.
[2023-12-27] MEDS ORDERED: TYLENOL 325 MG ONE (00:13)
[2023-12-27] MEDS: TYLENOL 325 MG PO ONE (00:15)
[2023-12-27 00:37] VITALS: PULSE 61; RESP 16; O2SAT 96
[2023-12-27 00:51] VITALS: BP 158/95; TEMP 97.2
--- NOTE | 2023-12-27 09:07 | XRAY ---
Indication: Pain. Comparison: None 2 view right knee demonstrates osteopenia and intact total knee arthroplasty. No other bony, articular, or soft tissue abnormalities.
== END 2023-12-27 00:59 | disposition home or self-care (01) ==
LOC: ED 23:04
DX: S83.91XA Sprain of unspecified site of right knee, initial encounter (principal); S81.011A Laceration without foreign body, right knee, initial encounter; W06.XXXA Fall from bed, initial encounter; Y92.003 Bedroom of unspecified non-institutional (private) residence as the place of occurrence of the external cause; E11.9 Type 2 diabetes mellitus without complications; Z79.4 Long term (current) use of insulin; Z79.899 Other long term (current) drug therapy
CPT/HCPCS: 73560; 99283; A9270-GY

== ENCOUNTER 2024-02-18 10:37 | Emergency (ER) | payer MEDICARE, OTHER ==
[2024-02-18] MEDS ORDERED: DUONEB 0.5-3 MG/3 ml Neb IH ONE (10:42)
[2024-02-18] MEDS: DUONEB 0.5-3 MG/3 ml Neb IH ONE (10:46)
[2024-02-18 10:53] VITALS: TEMP 98.3
[2024-02-18] MEDS ORDERED: PROVENTIL 2.5 MG/3 ML NEB IH ONE (11:18)
[2024-02-18] MEDS: PROVENTIL 2.5 MG/3 ML NEB IH ONE (11:20)
[2024-02-18 11:23] LABS: Absolute Neutrophil Ct (ANC) 3.06 x10^3/uL (1.56-6.13); BASOPHIL % 0.4 % (0.1-1.2); Basophil (Absolute #) 0.02 x10^3/uL (0.01-0.08); Eosinophil % 0.9 % (0.7-5.8); Eosinophil (Absolute #) 0.04 x10^3/uL (0.04-0.36); Hematocrit 35.7 % (34.1-44.9); Hemoglobin 11.5 g/dL (11.2-15.7); IMMATURE GRAN # 0.02 x10^3u/L (0.001-0.031); IMMATURE GRAN % 0.4 % (0.001-0.429); Lymphocyte (Absolute #) 0.99 x10^3/uL (1.18-3.74); Lymphocytes % 21.2 % (19.3-51.7); Mean Cell Volume 85.2 fL (79.4-94.8); Mean Corpuscular Hemoglobin 27.4 pg (25.6-32.2); Mean Corpuscular Hgb Concent. 32.2 g/dL (32.2-35.5); Mean Platelet Volume 10.7 fL (9.4-12.3); Monocyte (Absolute #) 0.55 x10^3/uL (0.24-0.86); Monocytes % 11.8 % (4.7-12.5); Neutrophil % 65.3 % (34.0-71.1); Platelet Count 172 x10^3/uL (182-369); Red Blood Count 4.19 x10^6/uL (3.93-5.22); Red Cell Distribution Width 17.2 % (11.7-14.4); White Blood Count 4.7 x10^3/uL (3.98-10.04)
--- NOTE | 2024-02-18 11:26 | ERPHSYRPT ---
- History of Present Illness Time Seen by Provider: 02/18/24 10:39 Source: patient Exam Limitations: no limitations Patient Subjective Stated Complaint: C/O SOB and cough that started yesterday but is much worse this am. Triage Nursing Assessment: Patient ambulated back to ER. She is SOB. Cough is present; non-productive during assessment but patient reports it as productive at times at home. Wheezes noted throughout lung villegas. She is alert and oriented. Physician History: Patient is here with cough, shortness of breath. Started yesterday. Patient has a known COPD patient. History of lung cancer that is now in remission. No falls or trauma. No actual chest pain today. States that she does take daily prednisone for her COPD. However she has not been on different steroids, steroid burst or antibiotics recently. She cannot remember her last hospitalization for COPD, pneumonia, breathing problems. Patient does have a long history of smoking. However she quit on her 40th birthday. Patient is taking PO well. Same number of urinations and defecations. The patient has no signs of altered mental status, nuchal rigidity, signs of meningitis. The patient is up-to-date on all vaccinations. Allergies/Adverse Reactions: clarithromycin [From Biaxin] Allergy (Severe, Verified 02/18/24 10:46) Hives Coconut Allergy (Severe, Verified 02/18/24 10:46) Difficulty Breathing green dye *RETIRED-07/03/12 [Green Dye] Allergy (Mild, Verified 02/18/24 10:46) Swelling swelling ears red dye [Red Dye] Allergy (Mild, Verified 02/18/24 10:46) Swelling ears swell adhesive Allergy (Verified 02/18/24 10:46) Rash cholestyramine Allergy (Verified 02/18/24 10:46) iodine Allergy (Verified 02/18/24 10:46) Wheezing latex Allergy (Verified 02/18/24 10:46) Rash nitrofurantoin [From Macrobid] Allergy (Verified 02/18/24 10:46) levofloxacin [From Levaquin] Adverse Reaction (Mild, Verified 02/18/24 10:46) Joint Aches Home Medications: Zolpidem Tartrate [Ambien] 10 mg PO HS 08/16/15 [History] Budesonide/Glycopyr/Formoterol [Breztri Aerosphere Inhaler] 2 puffs IH BID 09/05/21 [History] Fexofenadine HCl [Sonia Allergy] 180 mg PO HS PRN PRN 01/23/23 [History] Albuterol Common Canister [Ventolin Common Canister] 2 puff IH BID 09/20/23 [History] Insulin Glargine,Hum.rec.anlog [Lantus] 20 - 22 unit SQ HS 09/20/23 [History] Metoprolol Succinate 50 mg PO DAILY 09/20/23 [History] Furosemide [Lasix] 20 mg PO DAILY 11/21/23 [History] Colesevelam HCl 625 mg PO BID 02/18/24 [History] Metoprolol Succinate 25 mg Xl* [Toprol-Xl 25MG Tablets] 25 mg PO HS 02/18/24 [History] Rosuvastatin Calcium [Crestor] 10 mg PO HS 02/18/24 [History] Warfarin Sodium 5 mg PO DAILY 02/18/24 [History] predniSONE [Prednisone] 2.5 mg PO DAILY 02/18/24 [History] Hx Tetanus, Diphtheria Vaccination/Date Given: Yes Hx Influenza Vaccination/Date Given: No Hx Pneumococcal Vaccination/Date Given: No Immunizations Up to Date: Yes Travel Risk - International Travel Have you traveled outside of the country in past 3 weeks: No - Emerging Infectious Disease Are you exhibiting symptoms associated with any current EIDs: Yes Symptoms: Cough: New Onset, Shortness of Breath - Past Medical History Pertinent Past Medical History: Yes Neurological History: No Pertinent History ENT History: Cataracts Cardiac History: Arrhythmia, Other Respiratory History: COPD, Other Endocrine Medical History: Diabetes Type II, Other Musculoskeletal History: Osteoarthritis GI Medical History: Diverticulitis, Gallbladder Disease, Pancreatitis History: No Pertinent History Psycho-Social History: Depression Female Reproductive Disorders: No Pertinent History Other Medical History: bruised liver, kidney disease in the past, seasonal allergies, lung ca, MRCP, Pancreas cyst - Past Surgical History Past Surgical History: Yes Neuro Surgical History: No Pertinent History Cardiac: Pacemaker Respiratory: Lobectomy Gastrointestinal: Appendectomy, Cholecystectomy, Hernia Repair Genitourinary: No Pertinent History Musculoskeletal: No Pertinent History, Joint Replacement, Orthopedic Surgery Female Surgical History: Hysterectomy, Other Other Surgical History: tonsilectomy, carpal tunnel, trigger finger X3, BLADDER SLING, colorectal, SI fusion, left wedge resection to lungs July 16, 2020, [facility] 2022 - Social History Smoking Status: Former smoker How long have you smoked: 20 years Exposure to second hand smoke: No Drug Use: none Patient Lives Alone: Yes - Social Determinants of Health Will the patient participate in the screening: Yes Do you worry about a steady place to live?: No Do you have any problems with any of the following?: No known problems In the past 12 months,have you had to go without utilities?: No Transportation Issues: No Has anyone in your support network made you feel unsafe?: No Have you or anyone in your house had to go without enough: No - Nursing Vital Signs Nursing Vital Signs: Initial Vital Signs Temperature 98.3 F 02/18/24 10:43 Pulse Rate 67 02/18/24 10:43 Respiratory Rate 20 02/18/24 10:43 Blood Pressure 137/52 02/18/24 10:43 O2 Sat by Pulse Oximetry 96 02/18/24 10:43 Pain Scale Pain Intensity 2 - Physical Exam SpO2: 97 Comments: 02/18/24 11:24 Review of Systems Constitutional: Negative for fever. HENT: Negative for congestion. Respiratory: Breathing problems Cardiovascular: Negative for chest pain. Gastrointestinal: Negative for abdominal pain. Genitourinary: Negative for dysuria. Musculoskeletal: Negative for back pain. Skin: Negative for rash. Neurological: Negative for headaches. Psychiatric/Behavioral: Negative for behavioral problems. All other systems reviewed and are negative. Physical Exam Vitals signs and nursing note reviewed. Constitutional: Appearance: Patient is well-developed. HENT: Head: Normocephalic and atraumatic. Eyes: Conjunctiva/sclera: Conjunctivae normal. Neck: Musculoskeletal: Normal range of motion. Trachea: No tracheal deviation. Cardiovascular: Rate and Rhythm: Normal rate. Pulmonary: Effort: Pulmonary effort is normal. Wheezing throughout, some crackles at the bases Abdominal: Palpations: Abdomen is soft. Musculoskeletal: General: No deformity. Skin: General: Skin is warm and dry. Neurological/ Psychiatric: Mental Status: Mental status, behavior, interaction with environment is appropriate for patient's age and condition - Course Nursing assessment & vital signs reviewed: Yes EKG Interpreted by Me: Sinus Rhythm (Atrial paced, rate of 60, MT interval 60, QRS 94, QTc 444, no STEMI) Ordered Tests: Active Orders 24 hr Category Date Time Status Senior Payroll Specialist STAT Care 02/18/24 10:43 Completed EKG-ER Only STAT Care 02/18/24 10:42 Completed IV Insertion STAT Care 02/18/24 10:42 Completed CHEST 1 VIEW (PORTABLE) Stat Exams 02/18/24 10:42 Completed CBC W DIFF Stat Lab 02/18/24 11:24 Completed CMP Stat Lab 02/18/24 11:24 Completed NT PRO BNPII Stat Lab 02/18/24 11:24 Completed TROPONIN Q4H Lab 02/18/24 11:24 Completed TROPONIN Q4H Lab 02/18/24 14:45 Ordered TROPONIN Q4H Lab 02/18/24 18:45 Ordered Medication Summary Discontinued Medications Generic Name Dose Route Start Last Admin Trade Name Freq PRN Reason Stop Dose Admin Albuterol Sulfate 2.5 mg 02/18/24 11:19 02/18/24 11:20 Albuterol Sulfate 2.5 Mg/3 Ml Neb IH 02/18/24 11:20 2.5 mg STAT ONE Administration Albuterol Sulfate Confirm 02/18/24 11:18 Albuterol Sulfate 2.5 Mg/3 Ml Neb Administered 02/18/24 11:19 Dose 2.5 mg IH .STK-MED ONE Albuterol/Ipratropium 3 ml 02/18/24 10:42 02/18/24 10:46 Ipratropium/Albuterol Sulfate 3 Ml Ampul.Neb IH 02/18/24 10:43 3 ml STAT ONE Administration Albuterol/Ipratropium Confirm 02/18/24 10:42 Ipratropium/Albuterol Sulfate 3 Ml Ampul.Neb Administered 02/18/24 10:43 Dose 3 ml IH .STK-MED ONE Methylprednisolone Sodium 0 mg 02/18/24 10:42 02/18/24 11:38 Succinate 125 mg/ Sterile IV 02/18/24 10:43 125 mg Water 2 ml STAT ONE Administration Azithromycin 500 mg in 250 mls @ 250 mls/hr 02/18/24 10:42 02/18/24 11:47 Zithromax 500 Mg/ 250 Ml Nacl Premix IV 02/18/24 11:41 Not Given STAT STA Azithromycin Confirm 02/18/24 11:36 Zithromax 500 Mg/ 250 Ml Nacl Premix Administered 02/18/24 11:37 Dose 500 mg in 250 mls @ ud IV .STK-MED ONE Ceftriaxone Sodium 1 gm in 100 mls @ 200 mls/hr 02/18/24 11:45 02/18/24 12:21 Rocephin 1 Gm / 100 Ml Nacl IV 02/18/24 12:14 Infused STAT ONE Infusion Ceftriaxone Sodium Confirm 02/18/24 11:47 Rocephin 1 Gm / 100 Ml Nacl Administered 02/18/24 11:48 Dose 1 gm in 100 mls @ ud IV .STK-MED ONE Methylprednisolone Sodium Succinate Confirm 02/18/24 11:36 Methylprednis Sod Succ 125 Mg/2 Ml Vial Administered 02/18/24 11:37 Dose 125 mg .ROUTE .STK-MED ONE Sterile Water Confirm 02/18/24 11:36 Water For Injection,Sterile 10 Ml Vial Administered 02/18/24 11:37 Dose 10 ml IJ .STK-MED ONE Lab/Rad Data: Laboratory Result Diagrams 02/18/24 11:24 02/18/24 11:24 Laboratory Results 02/18/24 02/18/24 02/18/24 Range/Units 11:24 11:24 11:24 WBC 4.7 (3.98-10.04) x10^3/uL RBC 4.19 (3.93-5.22) x10^6/uL Hgb 11.5 (11.2-15.7) g/dL Hct 35.7 (34.1-44.9) % MCV 85.2 (79.4-94.8) fL MCH 27.4 (25.6-32.2) pg MCHC 32.2 (32.2-35.5) g/dL RDW 17.2 H (11.7-14.4) % Plt Count 172 L (182-369) x10^3/uL MPV 10.7 (9.4-12.3) fL Gran % 65.3 (34.0-71.1) % Immature Gran % (Auto) 0.4 (0.001-0.429) % Nucleat RBC Rel Count 0.0 (0.00-0.2) % Eos # (Auto) 0.04 (0.04-0.36) x10^3/uL Immature Gran # (Auto) 0.02 (0.001-0.031) x10^3u/L Absolute Lymphs (auto) 0.99 L (1.18-3.74) x10^3/uL Absolute Monos (auto) 0.55 (0.24-0.86) x10^3/uL Absolute Nucleated RBC 0.00 (0.00-0.012) x10^3u/L Lymphocytes % 21.2 (19.3-51.7) % Monocytes % 11.8 (4.7-12.5) % Eosinophils % 0.9 (0.7-5.8) % Basophils % 0.4 (0.1-1.2) % Absolute Granulocytes 3.06 (1.56-6.13) x10^3/uL Basophils # 0.02 (0.01-0.08) x10^3/uL Sodium 140 (135-145) mmol/L Potassium 3.9 (3.5-5.1) mmol/L Chloride 108 H (98-107) mmol/L Carbon Dioxide 25 (22-30) mmol/L Anion Gap 11.1 (5-15) MEQ/L BUN 18 H (7-17) mg/dL Creatinine 0.86 (0.52-1.04) mg/dL Estimated GFR 71.3 ML/MIN Glucose 108 H (74-106) mg/dL Calcium 8.7 (8.4-10.2) mg/dL Total Bilirubin 0.80 (0.2-1.3) mg/dL AST 31 (14-36) U/L ALT 25 (0-35) U/L Alkaline Phosphatase 74 (38-126) U/L Troponin I < 0.012 (0.000-0.033) ng/mL NT-Pro-B Natriuret Pep 722 (<300) pg/mL Serum Total Protein 6.3 (6.3-8.2) g/dL Albumin 3.8 (3.5-5.0) g/dL Influenza Type A Ag (NEGATIVE) Influenza Type B Ag (NEGATIVE) RSV (PCR) (NEGATIVE) SARS-CoV-2 (PCR) (NEGATIVE) 02/18/24 Range/Units 10:59 WBC (3.98-10.04) x10^3/uL RBC (3.93-5.22) x10^6/uL Hgb (11.2-15.7) g/dL Hct (34.1-44.9) % MCV (79.4-94.8) fL MCH (25.6-32.2) pg MCHC (32.2-35.5) g/dL RDW (11.7-14.4) % Plt Count (182-369) x10^3/uL MPV (9.4-12.3) fL Gran % (34.0-71.1) % Immature Gran % (Auto) (0.001-0.429) % Nucleat RBC Rel Count (0.00-0.2) % Eos # (Auto) (0.04-0.36) x10^3/uL Immature Gran # (Auto) (0.001-0.031) x10^3u/L Absolute Lymphs (auto) (1.18-3.74) x10^3/uL Absolute Monos (auto) (0.24-0.86) x10^3/uL Absolute Nucleated RBC (0.00-0.012) x10^3u/L Lymphocytes % (19.3-51.7) % Monocytes % (4.7-12.5) % Eosinophils % (0.7-5.8) % Basophils % (0.1-1.2) % Absolute Granulocytes (1.56-6.13) x10^3/uL Basophils # (0.01-0.08) x10^3/uL Sodium (135-145) mmol/L Potassium (3.5-5.1) mmol/L Chloride (98-107) mmol/L Carbon Dioxide (22-30) mmol/L Anion Gap (5-15) MEQ/L BUN (7-17) mg/dL Creatinine (0.52-1.04) mg/dL Estimated GFR ML/MIN Glucose (74-106) mg/dL Calcium (8.4-10.2) mg/dL Total Bilirubin (0.2-1.3) mg/dL AST (14-36) U/L ALT (0-35) U/L Alkaline Phosphatase (38-126) U/L Troponin I (0.000-0.033) ng/mL NT-Pro-B Natriuret Pep (<300) pg/mL Serum Total Protein (6.3-8.2) g/dL Albumin (3.5-5.0) g/dL Influenza Type A Ag NEGATIVE (NEGATIVE) Influenza Type B Ag NEGATIVE (NEGATIVE) RSV (PCR) NEGATIVE (NEGATIVE) SARS-CoV-2 (PCR) NEGATIVE (NEGATIVE) - Progress Progress: improved Progress Note: 02/18/24 11:26 Differential diagnosis includes: PNA, STEMI, NSTEMI, other infection, musculoskeletal pain, pneumothorax, COPD exacerbation - We'll obtain basic labs, fluids, EKG, troponin, chest x-ray - EKG shows no ST changes - my read - O2 saturations consistently greater than 95%. - CXR shows no pneumonia, pneumothorax - my read Plan for breathing treatments, steroids, IV dose of antibiotics in case there is pneumonia. 02/18/24 13:39 Patient feels very much improved with 2 breathing treatments, steroids here. Wheezing has almost completely resolved. Negative cardiac marker, EKG shows no signs of ischemia. Patient states this feels like her typical COPD exacerbation. Plan for steroids going home. No signs of pneumonia on chest x-ray. Therefore, will not place patient on antibiotics. We did discuss all this with the patient. We did give her strict return precautions. She will return here sooner for any new or changing symptoms. Counseled pt/family regarding: lab results, diagnosis, need for follow-up, rad results - Departure Departure Disposition: Home Clinical Impression: COPD with exacerbation Condition: Stable Critical Care Time: No Referrals: [facility] [Primary Care Provider] - Follow up/PCP as directed Instructions: Chronic Obstructive Pulmonary Disease, Exacerbation of COPD (DC) Prescriptions: Prednisone 10 mg [Deltasone 10 mg] 40 mg PO DAILY 5 Days #100 tablet
[2024-02-18] MEDS ORDERED: Sterile H2O 10 ml IJ ONE (11:36)
[2024-02-18] MEDS ORDERED: solu-MEDROL ONE (11:36)
[2024-02-18] MEDS ORDERED: Zithromax 500 MG/ 250 ML NaCl Premix 0 MG/0 ML IVPB IV ONE (11:36)
[2024-02-18 11:37] LABS: INFLUENZA A NEGATIVE (NEGATIVE); INFLUENZA B NEGATIVE (NEGATIVE); RESPIRATORY SYNCTIAL VIRUS NEGATIVE (NEGATIVE); SARS-CoV-2 Xpert Express NEGATIVE (NEGATIVE)
[2024-02-18] MEDS: solu-MEDROL 125 MG, Sterile H2O 10 ml 2 ML IV ONE (11:38)
[2024-02-18 11:47] LABS: ALBUMIN 3.8 g/dL (3.5-5.0); ANION GAP 11.1 MEQ/L (5-15); BILIRUBIN,TOTAL 0.8 mg/dL (0.2-1.3); Calcium 8.7 mg/dL (8.4-10.2); Creatinine 1 0.86 mg/dL (0.52-1.04); EST GLOMERULAR FILTRATION RATE 71.3 ML/MIN; Potassium 3.9 mmol/L (3.5-5.1); Total Protein 6.3 g/dL (6.3-8.2)
[2024-02-18] MEDS ORDERED: ROCEPHIN 1 GM / 100 ML NaCl 1 GM/100 ML IVPB IV ONE (11:47)
[2024-02-18] MEDS: Zithromax 500 MG/ 250 ML NaCl Premix 500 MG/250 ML IVPB IV STA (11:47)
[2024-02-18] MEDS: ROCEPHIN 1 GM / 100 ML NaCl 1 GM/100 ML IVPB IV ONE (11:48)
--- NOTE | 2024-02-18 12:03 | XRAY ---
Indication: Pneumonia. Comparison: July 15, 2023 Portable chest demonstrates stable right apical surgical clips, left midlung suture material, and left midlung subsegmental atelectasis/scarring. No focal infiltrate, consolidation, or large effusion. Heart not enlarged again with incidental left pacemaker and left hilar calcified nodes. Bony thorax intact again with osteopenia and degenerative changes. Impression: Continued nonacute chest with chronic features.
[2024-02-18 12:14] VITALS: O2SAT 97
[2024-02-18 12:42] VITALS: BP 139/66; PULSE 70; RESP 18
== END 2024-02-18 12:43 | disposition home or self-care (01) ==
LOC: ED 10:37
DX: J44.1 Chronic obstructive pulmonary disease with (acute) exacerbation (principal); R06.02 Shortness of breath; R05.9 Cough, unspecified; Z85.118 Personal history of other malignant neoplasm of bronchus and lung; Z86.79 Personal history of other diseases of the circulatory system
CPT/HCPCS: 0241U; 36415; 71045; 80053; 83880; 84484; 85025; 93005; 93041; 94640; 96365; 96374; 99284; J0456; J0696; J2919; J7609; A9270-GY

== ENCOUNTER 2024-02-20 04:03 | Observation (INO) | payer MEDICARE, OTHER ==
[2024-02-20] MEDS ORDERED: DUONEB 0.5-3 MG/3 ml Neb IH ONE (04:10)
[2024-02-20] MEDS: DUONEB 0.5-3 MG/3 ml Neb IH ONE (04:14)
[2024-02-20] MEDS ORDERED: Sterile H2O 10 ml IJ ONE (04:21)
[2024-02-20] MEDS ORDERED: solu-MEDROL ONE (04:21)
[2024-02-20] MEDS: solu-MEDROL 125 MG, Sterile H2O 10 ml 2 ML IV ONE (04:31)
[2024-02-20 04:42] LABS: Absolute Neutrophil Ct (ANC) 6.41 x10^3/uL (1.56-6.13); BASOPHIL % 0.1 % (0.1-1.2); Basophil (Absolute #) 0.01 x10^3/uL (0.01-0.08); Eosinophil % 2.6 % (0.7-5.8); Hematocrit 35.7 % (34.1-44.9); Hemoglobin 11.4 g/dL (11.2-15.7); IMMATURE GRAN # 0.04 x10^3u/L (0.001-0.031); IMMATURE GRAN % 0.5 % (0.001-0.429); Lymphocyte (Absolute #) 0.64 x10^3/uL (1.18-3.74); Lymphocytes % 8.3 % (19.3-51.7); Mean Cell Volume 86.2 fL (79.4-94.8); Mean Corpuscular Hemoglobin 27.5 pg (25.6-32.2); Mean Corpuscular Hgb Concent. 31.9 g/dL (32.2-35.5); Monocyte (Absolute #) 0.38 x10^3/uL (0.24-0.86); Monocytes % 4.9 % (4.7-12.5); Neutrophil % 83.6 % (34.0-71.1); Platelet Count 188 x10^3/uL (182-369); Red Blood Count 4.14 x10^6/uL (3.93-5.22); Red Cell Distribution Width 17.1 % (11.7-14.4); White Blood Count 7.7 x10^3/uL (3.98-10.04)
--- NOTE | 2024-02-20 04:48 | ERPHSYRPT ---
- History of Present Illness Time Seen by Provider: 02/20/24 04:10 Source: patient Exam Limitations: no limitations Patient Subjective Stated Complaint: Back pain Triage Nursing Assessment: Patient brought back to ED per w/c and transferred to bed per self. Patient A+O X3. Patient's skin pink, warm and dry. Patient was at ER on 02/18/2024 and dx with COPD exacerbation and D/C home to Prednisone 40mg daily for 5 days. Patient states she was going to restroom when she started coughing hard and felt a "pop" on the right mid back. Patient complains of right mid back pain 11/19. Lungs noted to be wheezing throughout. Physician History: Patient is a 73-year-old female history of diabetes, COPD, a-fib on coumadin presents to our ED via private vehicle for evaluation of right mid back pain. Patient was in our ED on 02/18/2024. Patient was diagnosed with COPD and discharged home with oral medications. Patient states she has been coughing intermittently. Patient reports this morning she coughed forcefully and felt a pop sensation in her back. Patient pain described as a ache that is localized. No radiation. Patient is currently on prednisone. No trauma. No fever. No nausea vomiting or diaphoresis. No chest pain or shortness of breath. Patient is currently on Coumadin however missed a dose yesterday due to a outpatient skin biopsy. Patient has a history of lung cancer. 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 Patient otherwise feels well. She voices no other complaints or concerns at this time. Portions of this note were created with voice recognition technology. There may be grammatical, spelling, punctuation or sound alike errors Timing/Duration: today Severity: moderate Modifying Factors: Improves With: nothing Associated Symptoms: denies symptoms Allergies/Adverse Reactions: clarithromycin [From Biaxin] Allergy (Severe, Verified 02/20/24 04:06) Hives Coconut Allergy (Severe, Verified 02/20/24 04:06) Difficulty Breathing green dye *RETIRED-07/03/12 [Green Dye] Allergy (Mild, Verified 02/20/24 04:06) Swelling swelling ears red dye [Red Dye] Allergy (Mild, Verified 02/20/24 04:06) Swelling ears swell adhesive Allergy (Verified 02/20/24 04:06) Rash cholestyramine Allergy (Verified 02/20/24 04:06) iodine Allergy (Verified 02/20/24 04:06) Wheezing latex Allergy (Verified 02/20/24 04:06) Rash nitrofurantoin [From Macrobid] Allergy (Verified 02/20/24 04:06) levofloxacin [From Levaquin] Adverse Reaction (Mild, Verified 02/20/24 04:06) Joint Aches Home Medications: Zolpidem Tartrate [Ambien] 10 mg PO HS 08/16/15 [History] Budesonide/Glycopyr/Formoterol [Breztri Aerosphere Inhaler] 2 puffs IH BID 09/05/21 [History] Fexofenadine HCl [Sonia Allergy] 180 mg PO HS PRN PRN 01/23/23 [History] Albuterol Common Canister [Ventolin Common Canister] 2 puff IH BID 09/20/23 [History] Insulin Glargine,Hum.rec.anlog [Lantus] 20 - 22 unit SQ HS 09/20/23 [History] Metoprolol Succinate 50 mg PO DAILY 09/20/23 [History] Furosemide [Lasix] 20 mg PO DAILY 11/21/23 [History] Colesevelam HCl 625 mg PO BID 02/18/24 [History] Metoprolol Succinate 25 mg Xl* [Toprol-Xl 25MG Tablets] 25 mg PO HS 02/18/24 [History] Rosuvastatin Calcium [Crestor] 10 mg PO HS 02/18/24 [History] Warfarin Sodium 5 mg PO DAILY 02/18/24 [History] predniSONE [Prednisone] 2.5 mg PO DAILY 02/18/24 [History] Hx Tetanus, Diphtheria Vaccination/Date Given: Yes Hx Influenza Vaccination/Date Given: Yes Hx Pneumococcal Vaccination/Date Given: Yes Immunizations Up to Date: Yes Travel Risk - International Travel Have you traveled outside of the country in past 3 weeks: No - Emerging Infectious Disease Are you exhibiting symptoms associated with any current EIDs: No Symptoms: Cough: New Onset, Shortness of Breath - Review of Systems Constitutional: No Symptoms, No Fever, No Chills Eyes: No Symptoms Ears, Nose, & Throat: No Symptoms Respiratory: No Symptoms, No Cough, No Dyspnea Cardiac: No Symptoms, No Chest Pain, No Edema, No Syncope Abdominal/Gastrointestinal: No Symptoms, No Abdominal Pain, No Nausea, No Vomiting, No Diarrhea Genitourinary Symptoms: No Symptoms, No Dysuria Musculoskeletal: No Symptoms, No Back Pain, No Neck Pain Skin: No Symptoms, No Rash Neurological: No Symptoms, No Dizziness, No Focal Weakness, No Sensory Changes Psychological: No Symptoms Endocrine: No Symptoms Hematologic/Lymphatic: No Symptoms Immunological/Allergic: No Symptoms All Other Systems: Reviewed and Negative - Past Medical History Pertinent Past Medical History: Yes Neurological History: No Pertinent History ENT History: Cataracts Cardiac History: Arrhythmia, Other Respiratory History: COPD, Other Endocrine Medical History: Diabetes Type II, Other Musculoskeletal History: Osteoarthritis GI Medical History: Diverticulitis, Gallbladder Disease, Pancreatitis History: No Pertinent History Psycho-Social History: Depression Female Reproductive Disorders: No Pertinent History Other Medical History: bruised liver, kidney disease in the past, seasonal allergies, lung ca, MRCP, Pancreas cyst - Past Surgical History Past Surgical History: Yes Neuro Surgical History: No Pertinent History Cardiac: Pacemaker Respiratory: Lobectomy Gastrointestinal: Appendectomy, Cholecystectomy, Hernia Repair Genitourinary: No Pertinent History Musculoskeletal: No Pertinent History, Joint Replacement, Orthopedic Surgery Female Surgical History: Hysterectomy, Other Other Surgical History: tonsilectomy, carpal tunnel, trigger finger X3, BLADDER SLING, colorectal, SI fusion, left wedge resection to lungs July 16, 2020, PACEMAKER 2022 - Social History Smoking Status: Former smoker How long have you smoked: 20 years Exposure to second hand smoke: No Drug Use: none Patient Lives Alone: Yes - Social Determinants of Health Will the patient participate in the screening: Yes Do you worry about a steady place to live?: No Do you have any problems with any of the following?: No known problems In the past 12 months,have you had to go without utilities?: No Transportation Issues: No Has anyone in your support network made you feel unsafe?: No Have you or anyone in your house had to go without enough: No - Nursing Vital Signs Nursing Vital Signs: Initial Vital Signs O2 Sat by Pulse Oximetry 94 L 02/20/24 04:03 Pain Scale Pain Intensity 6 - Physical Exam General Appearance: no apparent distress, alert Eye Exam: PERRL/EOMI, eyes nml inspection Ears, Nose, Throat Exam: normal ENT inspection, TMs normal, pharynx normal, moist mucous membranes Neck Exam: normal inspection, non-tender, supple, full range of motion Respiratory Exam: normal breath sounds, airway intact, diminished breath sounds, rhonchi, wheezing, No respiratory distress Cardiovascular Exam: regular rate/rhythm, normal heart sounds, normal peripheral pulses, other (Tenderness to palpation over right posterior ribs. Overlying soft tissue intact. No signs of trauma) Gastrointestinal/Abdomen Exam: soft, normal bowel sounds, No tenderness, No mass Back Exam: normal inspection, normal range of motion, No CVA tenderness, No vertebral tenderness Extremity Exam: normal inspection, normal range of motion, pelvis stable Neurologic Exam: alert, 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, cooperative, normal mood/affect, nml cerebellar function, nml station & gait, sensation nml, No motor deficits Skin Exam: normal color, warm, dry, No rash Lymphatic Exam: No adenopathy SpO2 Interpretation: normal SpO2: 98 O2 Delivery: Room Air - Course Nursing assessment & vital signs reviewed: Yes EKG Interpreted by Me: RATE (68 atrial paced complexes), NORMAL AXIS, NORMAL INTERVALS, NORMAL QRS - Radiology Exams Chest X-ray Interpretation: Interpreted by me (Nonacute chest with chronic features) Ordered Tests: Active Orders 24 hr Category Date Time Status Synchronous Motor Assembler STAT Care 02/20/24 04:15 Active EKG-ER Only STAT Care 02/20/24 04:14 Active IV Insertion STAT Care 02/20/24 04:14 Active Pulse Oximetry (ED) STAT Care 02/20/24 04:14 Active CHEST 1 VIEW (PORTABLE) Stat Exams 02/20/24 06:50 Taken BLOOD CULTURE Stat Lab 02/20/24 05:08 Received CBC W DIFF Stat Lab 02/20/24 04:39 Completed CMP Stat Lab 02/20/24 04:39 Completed D-DIMER QUANTITATIVE Stat Lab 02/20/24 04:39 Completed Lactic Acid Stat Lab 02/20/24 04:20 Completed NT PRO BNPII Stat Lab 02/20/24 04:39 Completed PROTIME WITH INR Stat Lab 02/20/24 04:39 Completed PTT Stat Lab 02/20/24 04:39 Completed TROPONIN Q4H Lab 02/20/24 04:39 Completed TROPONIN Q4H Lab 02/20/24 06:50 Completed TROPONIN Q4H Lab 02/20/24 12:15 Ordered UA W/RFX UR CULTURE Stat Lab 02/20/24 05:20 Completed Respiratory Therapy Assessment DAILY RT 02/20/24 04:11 Active Transfer Order Routine Transfer 02/20/24 Ordered Medication Summary Generic Name Dose Route Start Last Admin Trade Name Meche PRN Reason Stop Dose Admin Doxycycline Hyclate 100 mg/ 100 mls @ 100 mls/hr 02/20/24 10:00 Dextrose IV 03/21/24 09:59 Q12HT BENI Discontinued Medications Generic Name Dose Route Start Last Admin Trade Name Meche PRN Reason Stop Dose Admin Albuterol/Ipratropium 3 ml 02/20/24 04:11 02/20/24 04:14 Ipratropium/Albuterol Sulfate 3 Ml Ampul.Neb IH 02/20/24 04:12 3 ml STAT ONE Administration Albuterol/Ipratropium Confirm 02/20/24 04:10 Ipratropium/Albuterol Sulfate 3 Ml Ampul.Neb Administered 02/20/24 04:11 Dose 3 ml IH .STK-MED ONE Methylprednisolone Sodium 0 mg 02/20/24 04:14 02/20/24 04:31 Succinate 125 mg/ Sterile IV 02/20/24 04:15 125 mg Water 2 ml STAT ONE Administration Ceftriaxone Sodium 2 gm in 100 mls @ 200 mls/hr 02/20/24 06:52 02/20/24 07:13 Rocephin 2 Gm/100 Ml Nacl IV 02/20/24 07:21 200 mls/hr STAT ONE 200 mls/hr Administration Ceftriaxone Sodium Confirm 02/20/24 07:09 Rocephin 2 Gm/100 Ml Nacl Administered 02/20/24 07:10 Dose 2 gm in 100 mls @ ud IV .STK-MED ONE Methylprednisolone Sodium Succinate Confirm 02/20/24 04:21 Methylprednis Sod Succ 125 Mg/2 Ml Vial Administered 02/20/24 04:22 Dose 125 mg .ROUTE .STK-MED ONE Morphine Sulfate 4 mg 02/20/24 06:48 02/20/24 07:13 Morphine Sulfate 4 Mg/Ml Injection IV 02/20/24 06:49 4 mg STAT ONE Administration Morphine Sulfate Confirm 02/20/24 07:09 Morphine Sulfate 4 Mg/Ml Injection Administered 02/20/24 07:10 Dose 4 mg .ROUTE .STK-MED ONE Ondansetron HCl 4 mg 02/20/24 06:48 02/20/24 07:12 Ondansetron Hcl 4 Mg/2 Ml Vial IV 02/20/24 06:49 4 mg STAT ONE Administration Ondansetron HCl Confirm 02/20/24 07:09 Ondansetron Hcl 4 Mg/2 Ml Vial Administered 02/20/24 07:10 Dose 4 mg .ROUTE .STK-MED ONE Sterile Water Confirm 02/20/24 04:21 Water For Injection,Sterile 10 Ml Vial Administered 02/20/24 04:22 Dose 10 ml IJ .STK-MED ONE Lab/Rad Data: Laboratory Result Diagrams 02/20/24 04:39 02/20/24 04:39 Laboratory Results 02/20/24 02/20/24 02/20/24 Range/Units 06:50 05:20 04:39 WBC (3.98-10.04) x10^3/uL RBC (3.93-5.22) x10^6/uL Hgb (11.2-15.7) g/dL Hct (34.1-44.9) % MCV (79.4-94.8) fL MCH (25.6-32.2) pg MCHC (32.2-35.5) g/dL RDW (11.7-14.4) % Plt Count (182-369) x10^3/uL MPV (9.4-12.3) fL Gran % (34.0-71.1) % Immature Gran % (Auto) (0.001-0.429) % Nucleat RBC Rel Count (0.00-0.2) % Eos # (Auto) (0.04-0.36) x10^3/uL Immature Gran # (Auto) (0.001-0.031) x10^3u/L Absolute Lymphs (auto) (1.18-3.74) x10^3/uL Absolute Monos (auto) (0.24-0.86) x10^3/uL Absolute Nucleated RBC (0.00-0.012) x10^3u/L Lymphocytes % (19.3-51.7) % Monocytes % (4.7-12.5) % Eosinophils % (0.7-5.8) % Basophils % (0.1-1.2) % Absolute Granulocytes (1.56-6.13) x10^3/uL Basophils # (0.01-0.08) x10^3/uL PT (9.4-12.5) SECONDS INR (0.8-3.0) APTT (25.1-36.5) SECONDS D-Dimer (0.0-0.50) mg/L Sodium (135-145) mmol/L Potassium (3.5-5.1) mmol/L Chloride (98-107) mmol/L Carbon Dioxide (22-30) mmol/L Anion Gap (5-15) MEQ/L BUN (7-17) mg/dL Creatinine (0.52-1.04) mg/dL Estimated GFR ML/MIN Glucose (74-106) mg/dL Lactic Acid (0.4-2.0) Calcium (8.4-10.2) mg/dL Total Bilirubin (0.2-1.3) mg/dL AST (14-36) U/L ALT (0-35) U/L Alkaline Phosphatase (38-126) U/L Troponin I < 0.012 (0.000-0.033) ng/mL NT-Pro-B Natriuret Pep (<300) pg/mL Serum Total Protein (6.3-8.2) g/dL Albumin (3.5-5.0) g/dL Urine Color Yellow (Yellow) Urine Appearance Clear (Clear) Urine pH 5.5 (4.6-8.0) Ur Specific Botkins <=1.005 (1.005-1.030) Urine Protein Negative (Negative) Urine Glucose (UA) Negative (Negative) mg/dL Urine Ketones Negative (Negative) Urine Blood Negative (Negative) Urine Nitrite Negative (Negative) Urine Bilirubin Negative (Negative) Urine Urobilinogen 0.2 (0.2) mg/dL Ur Leukocyte Esterase Negative (Negative) U Hyaline Cast (Auto) NONE SEEN (0-2) /LPF Urine Microscopic RBC 0-2 (0-5) /HPF Urine Microscopic WBC 0-2 (0-5) /HPF Ur Epithelial Cells None Seen (None Seen) /HPF Urine Bacteria None Seen (None Seen) /HPF Urine Culture Reflexed NO (NO) Influenza Type A Ag NEGATIVE (NEGATIVE) Influenza Type B Ag NEGATIVE (NEGATIVE) RSV (PCR) NEGATIVE (NEGATIVE) SARS-CoV-2 (PCR) NEGATIVE (NEGATIVE) 02/20/24 02/20/24 02/20/24 Range/Units 04:39 04:39 04:39 WBC (3.98-10.04) x10^3/uL RBC (3.93-5.22) x10^6/uL Hgb (11.2-15.7) g/dL Hct (34.1-44.9) % MCV (79.4-94.8) fL MCH (25.6-32.2) pg MCHC (32.2-35.5) g/dL RDW (11.7-14.4) % Plt Count (182-369) x10^3/uL MPV (9.4-12.3) fL Gran % (34.0-71.1) % Immature Gran % (Auto) (0.001-0.429) % Nucleat RBC Rel Count (0.00-0.2) % Eos # (Auto) (0.04-0.36) x10^3/uL Immature Gran # (Auto) (0.001-0.031) x10^3u/L Absolute Lymphs (auto) (1.18-3.74) x10^3/uL Absolute Monos (auto) (0.24-0.86) x10^3/uL Absolute Nucleated RBC (0.00-0.012) x10^3u/L Lymphocytes % (19.3-51.7) % Monocytes % (4.7-12.5) % Eosinophils % (0.7-5.8) % Basophils % (0.1-1.2) % Absolute Granulocytes (1.56-6.13) x10^3/uL Basophils # (0.01-0.08) x10^3/uL PT 66.8 H (9.4-12.5) SECONDS INR 6.96 H* (0.8-3.0) APTT 37.0 H (25.1-36.5) SECONDS D-Dimer < 0.19 (0.0-0.50) mg/L Sodium 139 (135-145) mmol/L Potassium 4.3 (3.5-5.1) mmol/L Chloride 106 (98-107) mmol/L Carbon Dioxide 27 (22-30) mmol/L Anion Gap 10.9 (5-15) MEQ/L BUN 21 H (7-17) mg/dL Creatinine 0.92 (0.52-1.04) mg/dL Estimated GFR 65.8 ML/MIN Glucose 156 H (74-106) mg/dL Lactic Acid (0.4-2.0) Calcium 8.8 (8.4-10.2) mg/dL Total Bilirubin 0.70 (0.2-1.3) mg/dL AST 30 (14-36) U/L ALT 24 (0-35) U/L Alkaline Phosphatase 69 (38-126) U/L Troponin I < 0.012 (0.000-0.033) ng/mL NT-Pro-B Natriuret Pep 1620 (<300) pg/mL Serum Total Protein 6.1 L (6.3-8.2) g/dL Albumin 3.8 (3.5-5.0) g/dL Urine Color (Yellow) Urine Appearance (Clear) Urine pH (4.6-8.0) Ur Specific Botkins (1.005-1.030) Urine Protein (Negative) Urine Glucose (UA) (Negative) mg/dL Urine Ketones (Negative) Urine Blood (Negative) Urine Nitrite (Negative) Urine Bilirubin (Negative) Urine Urobilinogen (0.2) mg/dL Ur Leukocyte Esterase (Negative) U Hyaline Cast (Auto) (0-2) /LPF Urine Microscopic RBC (0-5) /HPF Urine Microscopic WBC (0-5) /HPF Ur Epithelial Cells (None Seen) /HPF Urine Bacteria (None Seen) /HPF Urine Culture Reflexed (NO) Influenza Type A Ag (NEGATIVE) Influenza Type B Ag (NEGATIVE) RSV (PCR) (NEGATIVE) SARS-CoV-2 (PCR) (NEGATIVE) 02/20/24 02/20/24 Range/Units 04:39 04:20 WBC 7.7 (3.98-10.04) x10^3/uL RBC 4.14 (3.93-5.22) x10^6/uL Hgb 11.4 (11.2-15.7) g/dL Hct 35.7 (34.1-44.9) % MCV 86.2 (79.4-94.8) fL MCH 27.5 (25.6-32.2) pg MCHC 31.9 L (32.2-35.5) g/dL RDW 17.1 H (11.7-14.4) % Plt Count 188 (182-369) x10^3/uL MPV 11.0 (9.4-12.3) fL Gran % 83.6 H (34.0-71.1) % Immature Gran % (Auto) 0.5 H (0.001-0.429) % Nucleat RBC Rel Count 0.0 (0.00-0.2) % Eos # (Auto) 0.20 (0.04-0.36) x10^3/uL Immature Gran # (Auto) 0.04 H (0.001-0.031) x10^3u/L Absolute Lymphs (auto) 0.64 L (1.18-3.74) x10^3/uL Absolute Monos (auto) 0.38 (0.24-0.86) x10^3/uL Absolute Nucleated RBC 0.00 (0.00-0.012) x10^3u/L Lymphocytes % 8.3 L (19.3-51.7) % Monocytes % 4.9 (4.7-12.5) % Eosinophils % 2.6 (0.7-5.8) % Basophils % 0.1 (0.1-1.2) % Absolute Granulocytes 6.41 H (1.56-6.13) x10^3/uL Basophils # 0.01 (0.01-0.08) x10^3/uL PT (9.4-12.5) SECONDS INR (0.8-3.0) APTT (25.1-36.5) SECONDS D-Dimer (0.0-0.50) mg/L Sodium (135-145) mmol/L Potassium (3.5-5.1) mmol/L Chloride (98-107) mmol/L Carbon Dioxide (22-30) mmol/L Anion Gap (5-15) MEQ/L BUN (7-17) mg/dL Creatinine (0.52-1.04) mg/dL Estimated GFR ML/MIN Glucose (74-106) mg/dL Lactic Acid 1.5 (0.4-2.0) Calcium (8.4-10.2) mg/dL Total Bilirubin (0.2-1.3) mg/dL AST (14-36) U/L ALT (0-35) U/L Alkaline Phosphatase (38-126) U/L Troponin I (0.000-0.033) ng/mL NT-Pro-B Natriuret Pep (<300) pg/mL Serum Total Protein (6.3-8.2) g/dL Albumin (3.5-5.0) g/dL Urine Color (Yellow) Urine Appearance (Clear) Urine pH (4.6-8.0) Ur Specific Botkins (1.005-1.030) Urine Protein (Negative) Urine Glucose (UA) (Negative) mg/dL Urine Ketones (Negative) Urine Blood (Negative) Urine Nitrite (Negative) Urine Bilirubin (Negative) Urine Urobilinogen (0.2) mg/dL Ur Leukocyte Esterase (Negative) U Hyaline Cast (Auto) (0-2) /LPF Urine Microscopic RBC (0-5) /HPF Urine Microscopic WBC (0-5) /HPF Ur Epithelial Cells (None Seen) /HPF Urine Bacteria (None Seen) /HPF Urine Culture Reflexed (NO) Influenza Type A Ag (NEGATIVE) Influenza Type B Ag (NEGATIVE) RSV (PCR) (NEGATIVE) SARS-CoV-2 (PCR) (NEGATIVE) - Progress Progress: improved Progress Note: 73-year-old female history of COPD presents to our ED for evaluation of cough shortness of breath and back pain. Patient was recently diagnosed with COPD and treated on an outpatient basis. Patient reports her symptoms persisted and spite of outpatient management. Upon arrival patient was wheezing short of breath and complained of right sided back pain just superficial to right posterior lower rib area. D-dimer negative. Troponin negative x 2. EKG sinus rhythm. Chest x-ray essentially unchanged. INR observed to be supratherapeutic. patient has no bleeding diathesis. Per patient she is on Coumadin secondary to atrial fibrillation. Patient treated for COPD exacerbation. Albuterol nebulized treatment administered. Solu-Medrol administered. Antibiotics infused. Symptoms improved and however not resolved. Patient will be admitted for further evaluation and treatment. Case discussed with hospitalist at 7:32 AM. Patient accepted for admission. Plan of care discussed with patient. She agrees to admission at [facility] for further evaluation and treatment. Portions of this note were created with voice recognition technology. There may be grammatical, spelling, punctuation or sound alike errors Complexity of problem addressed is moderate acute complicated no critical care time. Complexity of data reviewed analyzes extensive. Test ordered chest reviewed results analyzed and correlated clinically with history and physical exam. Management discussed with hospitalist who excepts admission to observation. Risk of complication and or risk of morbidity/mortality of patient management is high. Patient requires hospitalization for further evaluation and treatment. Vital stable. Time spent to admit patient approximately 20 minutes. Plan of care established for shared decision making. No social determinants of health present to impede follow-up. Portions of this note were created with voice recognition technology. There may be grammatical, spelling, punctuation or sound alike errors 02/20/24 07:46 Counseled pt/family regarding: lab results, diagnosis, rad results - Departure Departure Disposition: Observation Clinical Impression: Supratherapeutic INR, Back pain, SOB (shortness of breath), Cough, COPD exacerbation Condition: Stable Critical Care Time: No Referrals: [facility] [Primary Care Provider] - Follow up/PCP as directed Instructions: Chronic Obstructive Pulmonary Disease
[2024-02-20 05:22] LABS: INFLUENZA A NEGATIVE (NEGATIVE); INFLUENZA B NEGATIVE (NEGATIVE); RESPIRATORY SYNCTIAL VIRUS NEGATIVE (NEGATIVE); SARS-CoV-2 Xpert Express NEGATIVE (NEGATIVE)
[2024-02-20 05:34] LABS: ALBUMIN 3.8 g/dL (3.5-5.0); ANION GAP 10.9 MEQ/L (5-15); BILIRUBIN,TOTAL 0.7 mg/dL (0.2-1.3); Calcium 8.8 mg/dL (8.4-10.2); Creatinine 1 0.92 mg/dL (0.52-1.04); EST GLOMERULAR FILTRATION RATE 65.8 ML/MIN; Potassium 4.3 mmol/L (3.5-5.1); Total Protein 6.1 g/dL (6.3-8.2)
[2024-02-20 05:35] LABS: D-DIMER QUANTITATIVE < 0.19 mg/L (0.0-0.50); PROTIME 66.8 SECONDS (9.4-12.5)
[2024-02-20 05:37] LABS: INR 6.96 (0.8-3.0)
[2024-02-20 05:40] LABS: NT PRO BNPII 1620 pg/mL (<300); TROPONIN < 0.012 ng/mL (0.000-0.033)
[2024-02-20 05:50] LABS: Appearance Clear (Clear); Bacteria None Seen /HPF (None Seen); Bilirubin Negative (Negative); Blood Negative (Negative); Epithelial Cells None Seen /HPF (None Seen); Glucose, Urine Negative (Negative); Hyaline Casts NONE SEEN /LPF (0-2); Ketones Negative (Negative); Leukocyte Esterase Negative (Negative); Nitrite Negative (Negative); Ph 5.5 (4.6-8.0); Protein,Urine Dip Negative (Negative); RBC 0-2 /HPF (0-5); Specific Gravity <=1.005 (1.005-1.030); Urobilinogen 0.2 mg/dL (0.2); WBC 0-2 /HPF (0-5)
[2024-02-20] MEDS ORDERED: Zofran 4 MG/2 ML VIAL ONE (07:09)
[2024-02-20] MEDS ORDERED: ROCEPHIN 2 GM/100 ML NACL 2 GM/100 ML IVPB IV ONE (07:09)
[2024-02-20] MEDS ORDERED: MORPHINE SULFATE 4 MG INJ ONE (07:09)
[2024-02-20] MEDS: Zofran 4 MG/2 ML VIAL IV ONE (07:12)
[2024-02-20] MEDS: ROCEPHIN 2 GM/100 ML NACL 2 GM/100 ML IVPB IV ONE (07:13)
[2024-02-20] MEDS: MORPHINE SULFATE 4 MG INJ IV ONE (07:13)
[2024-02-20] MEDS: VIBRAMYCIN 100 MG*** 100 MG in Dextrose 5%/Water IV Soln. 100ML PLUS BAG 100 ML IV ONE (08:08)
--- NOTE | 2024-02-20 08:42 | XRAY ---
Indication: Cough. Comparison: February 18, 2024 Portable apical lordotic chest unchanged again demonstrating right apical surgical clips, left mid lung suture material, and left midlung subsegmental atelectasis/scarring. Heart not enlarged again with left pacemaker and hilar calcified nodes. No new/acute findings.
--- NOTE | 2024-02-20 09:38 | PCM.HP ---
<STEPHANY CIFUENTES - Last Filed: 02/20/24 12:25> History of Present Illness - Chief Complaint Chief Complaint: COPD EXACERBATION, BACK PAIN Date: 02/20/24 History of Present Illness: is a 73 year old female with PMHX of cataracts, arrthmia, COPD, type II DM, OA, Diverticulitis, Pancreatitis, depression, pacemaker, lung cancer with wedge resection in 2020 who presented to ED 02/20/24 with complaints of shortness of breath and back pain following a "coughing fit." Patient was recently in the ED 02/18/24 and diagnosed with a COPD exacerbation and discharged home on prednisone. Patient states symptoms of shortness of breath, coughing, and wheezing began last Sunday and progressively got worse over the weekend. She reports she felt a "pop" in her back when coughing. Denies fever, cp, n/v/d, headache, or dizziness. No recent sick contacts. Had Mohs surgery yesterday on top of scalp with [facility]. She held her coumadin yesterday. Coumadin managed by [facility] coumadin clinic. Upon arrival to ED vitals stable. CXR with no acute findings. CT chest with no acute findings. Lab findings remarkable for INR of 6.96 and BNP 1620. Respiratory viral panel negative. Patient given Doxycyline/ceftriaxone and solumedrol in ED. Admit for COPD exacerbation and supratherapeutic INR. - Review of Systems Constitutional: No Symptoms Eyes: No Symptoms Ears, Nose, & Throat: Nose Congestion, Throat Pain Respiratory: Cough, Short Of Breath, Wheezing Cardiac: No Symptoms Abdominal/Gastrointestinal: No Symptoms Genitourinary Symptoms: No Symptoms Musculoskeletal: Back Pain Skin: No Symptoms Neurological: No Symptoms Psychological: No Symptoms Endocrine: No Symptoms Hematologic/Lymphatic: No Symptoms Immunological/Allergic: No Symptoms Medications & Allergies Home Medications: Home Medication List Zolpidem Tartrate [Ambien] 10 mg PO HS 08/16/15 [History Confirmed 02/20/24] Budesonide/Glycopyr/Formoterol [Breztri Aerosphere Inhaler] 2 puffs IH BID 09/05/21 [History Confirmed 02/20/24] Fexofenadine HCl [Sonia Allergy] 180 mg PO HS PRN PRN 01/23/23 [History Confirmed 02/20/24] Albuterol Common Canister [Ventolin Common Canister] 2 puff IH BID 09/20/23 [History Confirmed 02/20/24] Insulin Glargine,Hum.rec.anlog [Lantus] 20 - 23 unit SQ HS 09/20/23 [History Confirmed 02/20/24] Metoprolol Succinate 50 mg PO DAILY 09/20/23 [History Confirmed 02/20/24] Furosemide [Lasix] 20 mg PO DAILY 11/21/23 [History Confirmed 02/20/24] Colesevelam HCl 625 mg PO TID 02/18/24 [History Confirmed 02/20/24] Metoprolol Succinate 25 mg Xl* [Toprol-Xl 25MG Tablets] 25 mg PO HS 02/18/24 [History Confirmed 02/20/24] Rosuvastatin Calcium [Crestor] 10 mg PO HS 02/18/24 [History Confirmed 02/20/24] Warfarin Sodium 5 mg PO DAILY 02/18/24 [History Confirmed 02/20/24] predniSONE [Prednisone] 60 mg PO BID 02/18/24 [History Confirmed 02/20/24] Allergies/Adverse Reactions: Allergies Allergy/AdvReac Type Severity Reaction Status Date / Time clarithromycin [From Biaxin] Allergy Severe Hives Verified 02/20/24 04:06 Coconut Allergy Severe Difficulty Verified 02/20/24 04:06 Breathing green dye *RETIRED-07/03/12 Allergy Mild Swelling Verified 02/20/24 04:06 [Green Dye] red dye [Red Dye] Allergy Mild Swelling Verified 02/20/24 04:06 adhesive Allergy Rash Verified 02/20/24 04:06 cholestyramine Allergy Verified 02/20/24 04:06 iodine Allergy Wheezing Verified 02/20/24 04:06 latex Allergy Rash Verified 02/20/24 04:06 nitrofurantoin Allergy Verified 02/20/24 04:06 [From Macrobid] levofloxacin [From Levaquin] AdvReac Mild Joint Aches Verified 02/20/24 04:06 - Past Medical History Past Medical History: Yes Neurological History: No Pertinent History ENT History: Cataracts Cardiac History: Arrhythmia, Other Respiratory History: COPD, Other Endocrine Medical History: Diabetes Type II, Other Musculoskelatal History: Osteoarthritis GI Medical History: Diverticulitis, Gallbladder Disease, Pancreatitis History: No Pertinent History Pyscho-Social History: No Pertinent History Reproductive Disorders: No Pertinent History Comment: bruised liver, kidney disease in the past, seasonal allergies, lung ca, MRCP, Pancreas cyst - Past Surgical History Past Surgical History: Yes Neuro Surgical History: No Pertinent History Cardiac History: Pacemaker Respiratory Surgery: Lobectomy GI Surgical History: Appendectomy, Cholecystectomy, Hernia Repair Genitourinary Surgical Hx: No Pertinent History Musculskeletal Surgical Hx: No Pertinent History, Joint Replacement, Orthopedic Surgery Female Surgical History: Hysterectomy, Other Other Surgical History: tonsilectomy, carpal tunnel, trigger finger X3, BLADDER SLING, colorectal, SI fusion, left wedge resection to lungs July 16, 2020, PACEMAKER 2022 - Social History Smoking Status: Former smoker How long have you smoked: 20 years Exposure to second hand smoke: No Alcohol: None Drug Use: none - Social Determinants of Health Will the patient participate in the screening: Yes Do you worry about a steady place to live?: No Do you have any problems with any of the following?: No known problems In the past 12 months,have you had to go without utilities?: No Have you or anyone in your house had to go without enough: No Transportation Issues: No Has anyone in your support network made you feel unsafe?: No Does the patient want assistance with any of the above?: No - Physical Exam Vital Signs: Vital Signs - 24 hr Temp Pulse Resp BP BP Pulse Ox 02/20/24 08:30 97.6 F 65 16 139/69 93 L 02/20/24 08:28 97.6 F 65 16 139/69 93 L 02/20/24 08:00 60 17 119/60 91 L 02/20/24 07:51 98 02/20/24 07:30 61 22 139/67 91 L 02/20/24 07:00 60 24 143/63 95 02/20/24 06:50 60 14 94 L 02/20/24 06:40 60 16 91 L 02/20/24 06:30 63 21 90 L 02/20/24 06:20 66 21 90 L 02/20/24 06:10 60 24 91 L 02/20/24 06:00 61 18 89 L 02/20/24 05:50 61 21 90 L 02/20/24 05:40 61 22 95 02/20/24 05:32 60 22 94 L 02/20/24 05:01 61 17 148/63 87 L 02/20/24 04:31 60 20 139/63 93 L 02/20/24 04:15 60 18 98 02/20/24 04:14 95 02/20/24 04:07 67 F 66 20 02/20/24 04:06 66 18 189/78 98 02/20/24 04:04 97 02/20/24 04:03 94 L General Appearance: no apparent distress Neurologic Exam: alert, 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, cooperative Eye Exam: PERRL/EOMI Ears, Nose, Throat Exam: normal ENT inspection Neck Exam: normal inspection Respiratory Exam: crackles/rales, rhonchi, wheezing Cardiovascular Exam: regular rate/rhythm, normal heart sounds Gastrointestinal/Abdomen Exam: soft, normal bowel sounds Pelvic Exam: not done Rectal Exam: deferred Back Exam: other (Nodule to mid upper back TTP) Extremity Exam: normal inspection Skin Exam: normal color Results - Labs Lab/Micro Results: Lab Results-Last 24 Hours 02/20/24 02/20/24 02/20/24 Range/Units 04:20 04:39 04:39 WBC 7.7 (3.98-10.04) x10^3/uL RBC 4.14 (3.93-5.22) x10^6/uL Hgb 11.4 (11.2-15.7) g/dL Hct 35.7 (34.1-44.9) % MCV 86.2 (79.4-94.8) fL MCH 27.5 (25.6-32.2) pg MCHC 31.9 L (32.2-35.5) g/dL RDW 17.1 H (11.7-14.4) % Plt Count 188 (182-369) x10^3/uL MPV 11.0 (9.4-12.3) fL Gran % 83.6 H (34.0-71.1) % Immature Gran % (Auto) 0.5 H (0.001-0.429) % Nucleat RBC Rel Count 0.0 (0.00-0.2) % Eos # (Auto) 0.20 (0.04-0.36) x10^3/uL Immature Gran # (Auto) 0.04 H (0.001-0.031) x10^3u/L Absolute Lymphs (auto) 0.64 L (1.18-3.74) x10^3/uL Absolute Monos (auto) 0.38 (0.24-0.86) x10^3/uL Absolute Nucleated RBC 0.00 (0.00-0.012) x10^3u/L Lymphocytes % 8.3 L (19.3-51.7) % Monocytes % 4.9 (4.7-12.5) % Eosinophils % 2.6 (0.7-5.8) % Basophils % 0.1 (0.1-1.2) % Absolute Granulocytes 6.41 H (1.56-6.13) x10^3/uL Basophils # 0.01 (0.01-0.08) x10^3/uL PT (9.4-12.5) SECONDS INR (0.8-3.0) APTT (25.1-36.5) SECONDS D-Dimer (0.0-0.50) mg/L Sodium 139 (135-145) mmol/L Potassium 4.3 (3.5-5.1) mmol/L Chloride 106 (98-107) mmol/L Carbon Dioxide 27 (22-30) mmol/L Anion Gap 10.9 (5-15) MEQ/L BUN 21 H (7-17) mg/dL Creatinine 0.92 (0.52-1.04) mg/dL Estimated GFR 65.8 ML/MIN Glucose 156 H (74-106) mg/dL POC Glucometer (74 to 106) mg/dL Lactic Acid 1.5 (0.4-2.0) Calcium 8.8 (8.4-10.2) mg/dL Total Bilirubin 0.70 (0.2-1.3) mg/dL AST 30 (14-36) U/L ALT 24 (0-35) U/L Alkaline Phosphatase 69 (38-126) U/L Troponin I (0.000-0.033) ng/mL NT-Pro-B Natriuret Pep (<300) pg/mL Serum Total Protein 6.1 L (6.3-8.2) g/dL Albumin 3.8 (3.5-5.0) g/dL Urine Color (Yellow) Urine Appearance (Clear) Urine pH (4.6-8.0) Ur Specific [place]im (1.005-1.030) Urine Protein (Negative) Urine Glucose (UA) (Negative) mg/dL Urine Ketones (Negative) Urine Blood (Negative) Urine Nitrite (Negative) Urine Bilirubin (Negative) Urine Urobilinogen (0.2) mg/dL Ur Leukocyte Esterase (Negative) U Hyaline Cast (Auto) (0-2) /LPF Urine Microscopic RBC (0-5) /HPF Urine Microscopic WBC (0-5) /HPF Ur Epithelial Cells (None Seen) /HPF Urine Bacteria (None Seen) /HPF Urine Culture Reflexed (NO) Influenza Type A Ag (NEGATIVE) Influenza Type B Ag (NEGATIVE) RSV (PCR) (NEGATIVE) SARS-CoV-2 (PCR) (NEGATIVE) 02/20/24 02/20/24 02/20/24 Range/Units 04:39 04:39 04:39 WBC (3.98-10.04) x10^3/uL RBC (3.93-5.22) x10^6/uL Hgb (11.2-15.7) g/dL Hct (34.1-44.9) % MCV (79.4-94.8) fL MCH (25.6-32.2) pg MCHC (32.2-35.5) g/dL RDW (11.7-14.4) % Plt Count (182-369) x10^3/uL MPV (9.4-12.3) fL Gran % (34.0-71.1) % Immature Gran % (Auto) (0.001-0.429) % Nucleat RBC Rel Count (0.00-0.2) % Eos # (Auto) (0.04-0.36) x10^3/uL Immature Gran # (Auto) (0.001-0.031) x10^3u/L Absolute Lymphs (auto) (1.18-3.74) x10^3/uL Absolute Monos (auto) (0.24-0.86) x10^3/uL Absolute Nucleated RBC (0.00-0.012) x10^3u/L Lymphocytes % (19.3-51.7) % Monocytes % (4.7-12.5) % Eosinophils % (0.7-5.8) % Basophils % (0.1-1.2) % Absolute Granulocytes (1.56-6.13) x10^3/uL Basophils # (0.01-0.08) x10^3/uL PT 66.8 H (9.4-12.5) SECONDS INR 6.96 H* (0.8-3.0) APTT 37.0 H (25.1-36.5) SECONDS D-Dimer < 0.19 (0.0-0.50) mg/L Sodium (135-145) mmol/L Potassium (3.5-5.1) mmol/L Chloride (98-107) mmol/L Carbon Dioxide (22-30) mmol/L Anion Gap (5-15) MEQ/L BUN (7-17) mg/dL Creatinine (0.52-1.04) mg/dL Estimated GFR ML/MIN Glucose (74-106) mg/dL POC Glucometer (74 to 106) mg/dL Lactic Acid (0.4-2.0) Calcium (8.4-10.2) mg/dL Total Bilirubin (0.2-1.3) mg/dL AST (14-36) U/L ALT (0-35) U/L Alkaline Phosphatase (38-126) U/L Troponin I < 0.012 (0.000-0.033) ng/mL NT-Pro-B Natriuret Pep 1620 (<300) pg/mL Serum Total Protein (6.3-8.2) g/dL Albumin (3.5-5.0) g/dL Urine Color (Yellow) Urine Appearance (Clear) Urine pH (4.6-8.0) Ur Specific [place]im (1.005-1.030) Urine Protein (Negative) Urine Glucose (UA) (Negative) mg/dL Urine Ketones (Negative) Urine Blood (Negative) Urine Nitrite (Negative) Urine Bilirubin (Negative) Urine Urobilinogen (0.2) mg/dL Ur Leukocyte Esterase (Negative) U Hyaline Cast (Auto) (0-2) /LPF Urine Microscopic RBC (0-5) /HPF Urine Microscopic WBC (0-5) /HPF Ur Epithelial Cells (None Seen) /HPF Urine Bacteria (None Seen) /HPF Urine Culture Reflexed (NO) Influenza Type A Ag NEGATIVE (NEGATIVE) Influenza Type B Ag NEGATIVE (NEGATIVE) RSV (PCR) NEGATIVE (NEGATIVE) SARS-CoV-2 (PCR) NEGATIVE (NEGATIVE) 02/20/24 02/20/24 02/20/24 Range/Units 05:20 06:50 09:01 WBC (3.98-10.04) x10^3/uL RBC (3.93-5.22) x10^6/uL Hgb (11.2-15.7) g/dL Hct (34.1-44.9) % MCV (79.4-94.8) fL MCH (25.6-32.2) pg MCHC (32.2-35.5) g/dL RDW (11.7-14.4) % Plt Count (182-369) x10^3/uL MPV (9.4-12.3) fL Gran % (34.0-71.1) % Immature Gran % (Auto) (0.001-0.429) % Nucleat RBC Rel Count (0.00-0.2) % Eos # (Auto) (0.04-0.36) x10^3/uL Immature Gran # (Auto) (0.001-0.031) x10^3u/L Absolute Lymphs (auto) (1.18-3.74) x10^3/uL Absolute Monos (auto) (0.24-0.86) x10^3/uL Absolute Nucleated RBC (0.00-0.012) x10^3u/L Lymphocytes % (19.3-51.7) % Monocytes % (4.7-12.5) % Eosinophils % (0.7-5.8) % Basophils % (0.1-1.2) % Absolute Granulocytes (1.56-6.13) x10^3/uL Basophils # (0.01-0.08) x10^3/uL PT (9.4-12.5) SECONDS INR (0.8-3.0) APTT (25.1-36.5) SECONDS D-Dimer (0.0-0.50) mg/L Sodium (135-145) mmol/L Potassium (3.5-5.1) mmol/L Chloride (98-107) mmol/L Carbon Dioxide (22-30) mmol/L Anion Gap (5-15) MEQ/L BUN (7-17) mg/dL Creatinine (0.52-1.04) mg/dL Estimated GFR ML/MIN Glucose (74-106) mg/dL POC Glucometer 185 H (74 to 106) mg/dL Lactic Acid (0.4-2.0) Calcium (8.4-10.2) mg/dL Total Bilirubin (0.2-1.3) mg/dL AST (14-36) U/L ALT (0-35) U/L Alkaline Phosphatase (38-126) U/L Troponin I < 0.012 (0.000-0.033) ng/mL NT-Pro-B Natriuret Pep (<300) pg/mL Serum Total Protein (6.3-8.2) g/dL Albumin (3.5-5.0) g/dL Urine Color Yellow (Yellow) Urine Appearance Clear (Clear) Urine pH 5.5 (4.6-8.0) Ur Specific [place]im <=1.005 (1.005-1.030) Urine Protein Negative (Negative) Urine Glucose (UA) Negative (Negative) mg/dL Urine Ketones Negative (Negative) Urine Blood Negative (Negative) Urine Nitrite Negative (Negative) Urine Bilirubin Negative (Negative) Urine Urobilinogen 0.2 (0.2) mg/dL Ur Leukocyte Esterase Negative (Negative) U Hyaline Cast (Auto) NONE SEEN (0-2) /LPF Urine Microscopic RBC 0-2 (0-5) /HPF Urine Microscopic WBC 0-2 (0-5) /HPF Ur Epithelial Cells None Seen (None Seen) /HPF Urine Bacteria None Seen (None Seen) /HPF Urine Culture Reflexed NO (NO) Influenza Type A Ag (NEGATIVE) Influenza Type B Ag (NEGATIVE) RSV (PCR) (NEGATIVE) SARS-CoV-2 (PCR) (NEGATIVE) - Radiology Impressions Radiology Exams & Impressions: Radiology Procedures Category Date Time Status CHEST 1 VIEW (PORTABLE) Stat Exams 02/20/24 06:50 Completed Assessment/Plan (1) COPD exacerbation Current Visit: Yes Status: Acute Assessment & Plan: -CXR reviewed with no acute findings -CT chest reviewed with no acute findings -RA at baseline - currently RA -Supplemental oxygen with goal spo2 88-92% -Nebs/INH -RT eval and follow -Doxycycline -solumedrol Code(s): J44.1 - CHRONIC OBSTRUCTIVE PULMONARY DISEASE W (ACUTE) EXACERBATION (2) Back pain Current Visit: Yes Status: Acute Assessment & Plan: -Nodule to mid back noted on exam -CT chest ordered and pending -pain controlled at this time Code(s): M54.9 - DORSALGIA, UNSPECIFIED (3) History of atrial fibrillation Current Visit: Yes Status: Acute Assessment & Plan: -On coumadin - currently on hold due to supratherapeutic INR -continue metoprolol Code(s): Z86.79 - PERSONAL HISTORY OF OTHER DISEASES OF THE CIRCULATORY SYSTEM (4) Supratherapeutic INR Current Visit: Yes Status: Acute Assessment & Plan: -Hold coumadin - pharmacy manages OP - will consult for management while IP Code(s): R79.1 - ABNORMAL COAGULATION PROFILE (5) Hx of cancer of lung Current Visit: No Status: Acute Assessment & Plan: -s/p right lobectomy Code(s): Z85.118 - PERSONAL HISTORY OF MALIGNANT NEOPLASM OF BRONCHUS AND LUNG (6) HTN (hypertension) Current Visit: No Status: Chronic Assessment & Plan: -stable continue home meds Code(s): I10 - ESSENTIAL (PRIMARY) HYPERTENSION (7) Obesity, Class III, BMI 40-49.9 (morbid obesity) Current Visit: No Status: Chronic Assessment & Plan: -advised ADA diet and exercise Code(s): E66.01 - MORBID (SEVERE) OBESITY DUE TO EXCESS CALORIES (8) Type 2 diabetes mellitus Current Visit: No Status: Chronic Qualifiers: Diabetes mellitus lye treater insulin use: without half-way use Diabetes mellitus complication status: without complication Qualified Code(s): E11.9 - Type 2 diabetes mellitus without complications Assessment & Plan: -ada diet -a1c -SSI/glargine <MARIPOSA KAYE - Last Filed: 02/20/24 21:19> History of Present Illness - Chief Complaint History of Present Illness: is a 73 year old female. - Physical Exam Vital Signs: Vital Signs - 24 hr Temp Pulse Resp BP BP Pulse Ox 02/20/24 19:59 97.8 F 87 16 127/60 96 02/20/24 19:04 87 16 96 02/20/24 15:38 97.8 F 59 L 16 129/65 97 02/20/24 11:46 62 16 96 02/20/24 11:38 98.0 F 60 16 131/91 96 02/20/24 09:00 91 L 02/20/24 08:30 97.6 F 65 16 139/69 93 L 02/20/24 08:28 97.6 F 65 16 139/69 93 L 02/20/24 08:00 60 17 119/60 91 L 02/20/24 07:51 98 02/20/24 07:30 61 22 139/67 91 L 02/20/24 07:00 60 24 143/63 95 02/20/24 06:50 60 14 94 L 02/20/24 06:40 60 16 91 L 02/20/24 06:30 63 21 90 L 02/20/24 06:20 66 21 90 L 02/20/24 06:10 60 24 91 L 02/20/24 06:00 61 18 89 L 02/20/24 05:50 61 21 90 L 02/20/24 05:40 61 22 95 02/20/24 05:32 60 22 94 L 02/20/24 05:01 61 17 148/63 87 L 02/20/24 04:31 60 20 139/63 93 L 02/20/24 04:15 60 18 98 02/20/24 04:14 95 02/20/24 04:07 67 F 66 20 02/20/24 04:06 66 18 189/78 98 02/20/24 04:04 97 02/20/24 04:03 94 L Results - Labs Lab/Micro Results: Lab Results-Last 24 Hours 02/20/24 02/20/24 02/20/24 Range/Units 04:20 04:39 04:39 WBC 7.7 (3.98-10.04) x10^3/uL RBC 4.14 (3.93-5.22) x10^6/uL Hgb 11.4 (11.2-15.7) g/dL Hct 35.7 (34.1-44.9) % MCV 86.2 (79.4-94.8) fL MCH 27.5 (25.6-32.2) pg MCHC 31.9 L (32.2-35.5) g/dL RDW 17.1 H (11.7-14.4) % Plt Count 188 (182-369) x10^3/uL MPV 11.0 (9.4-12.3) fL Gran % 83.6 H (34.0-71.1) % Immature Gran % (Auto) 0.5 H (0.001-0.429) % Nucleat RBC Rel Count 0.0 (0.00-0.2) % Eos # (Auto) 0.20 (0.04-0.36) x10^3/uL Immature Gran # (Auto) 0.04 H (0.001-0.031) x10^3u/L Absolute Lymphs (auto) 0.64 L (1.18-3.74) x10^3/uL Absolute Monos (auto) 0.38 (0.24-0.86) x10^3/uL Absolute Nucleated RBC 0.00 (0.00-0.012) x10^3u/L Lymphocytes % 8.3 L (19.3-51.7) % Monocytes % 4.9 (4.7-12.5) % Eosinophils % 2.6 (0.7-5.8) % Basophils % 0.1 (0.1-1.2) % Absolute Granulocytes 6.41 H (1.56-6.13) x10^3/uL Basophils # 0.01 (0.01-0.08) x10^3/uL PT (9.4-12.5) SECONDS INR (0.8-3.0) APTT (25.1-36.5) SECONDS D-Dimer (0.0-0.50) mg/L Sodium 139 (135-145) mmol/L Potassium 4.3 (3.5-5.1) mmol/L Chloride 106 (98-107) mmol/L Carbon Dioxide 27 (22-30) mmol/L Anion Gap 10.9 (5-15) MEQ/L BUN 21 H (7-17) mg/dL Creatinine 0.92 (0.52-1.04) mg/dL Estimated GFR 65.8 ML/MIN Glucose 156 H (74-106) mg/dL POC Glucometer (74 to 106) mg/dL Hemoglobin A1c (4.5-6.0) % Lactic Acid 1.5 (0.4-2.0) Calcium 8.8 (8.4-10.2) mg/dL Total Bilirubin 0.70 (0.2-1.3) mg/dL AST 30 (14-36) U/L ALT 24 (0-35) U/L Alkaline Phosphatase 69 (38-126) U/L Troponin I (0.000-0.033) ng/mL NT-Pro-B Natriuret Pep (<300) pg/mL Serum Total Protein 6.1 L (6.3-8.2) g/dL Albumin 3.8 (3.5-5.0) g/dL Urine Color (Yellow) Urine Appearance (Clear) Urine pH (4.6-8.0) Ur Specific [place] (1.005-1.030) Urine Protein (Negative) Urine Glucose (UA) (Negative) mg/dL Urine Ketones (Negative) Urine Blood (Negative) Urine Nitrite (Negative) Urine Bilirubin (Negative) Urine Urobilinogen (0.2) mg/dL Ur Leukocyte Esterase (Negative) U Hyaline Cast (Auto) (0-2) /LPF Urine Microscopic RBC (0-5) /HPF Urine Microscopic WBC (0-5) /HPF Ur Epithelial Cells (None Seen) /HPF Urine Bacteria (None Seen) /HPF Urine Culture Reflexed (NO) Influenza Type A Ag (NEGATIVE) Influenza Type B Ag (NEGATIVE) RSV (PCR) (NEGATIVE) SARS-CoV-2 (PCR) (NEGATIVE) 02/20/24 02/20/24 02/20/24 Range/Units 04:39 04:39 04:39 WBC (3.98-10.04) x10^3/uL RBC (3.93-5.22) x10^6/uL Hgb (11.2-15.7) g/dL Hct (34.1-44.9) % MCV (79.4-94.8) fL MCH (25.6-32.2) pg MCHC (32.2-35.5) g/dL RDW (11.7-14.4) % Plt Count (182-369) x10^3/uL MPV (9.4-12.3) fL Gran % (34.0-71.1) % Immature Gran % (Auto) (0.001-0.429) % Nucleat RBC Rel Count (0.00-0.2) % Eos # (Auto) (0.04-0.36) x10^3/uL Immature Gran # (Auto) (0.001-0.031) x10^3u/L Absolute Lymphs (auto) (1.18-3.74) x10^3/uL Absolute Monos (auto) (0.24-0.86) x10^3/uL Absolute Nucleated RBC (0.00-0.012) x10^3u/L Lymphocytes % (19.3-51.7) % Monocytes % (4.7-12.5) % Eosinophils % (0.7-5.8) % Basophils % (0.1-1.2) % Absolute Granulocytes (1.56-6.13) x10^3/uL Basophils # (0.01-0.08) x10^3/uL PT 66.8 H (9.4-12.5) SECONDS INR 6.96 H* (0.8-3.0) APTT 37.0 H (25.1-36.5) SECONDS D-Dimer < 0.19 (0.0-0.50) mg/L Sodium (135-145) mmol/L Potassium (3.5-5.1) mmol/L Chloride (98-107) mmol/L Carbon Dioxide (22-30) mmol/L Anion Gap (5-15) MEQ/L BUN (7-17) mg/dL Creatinine (0.52-1.04) mg/dL Estimated GFR ML/MIN Glucose (74-106) mg/dL POC Glucometer (74 to 106) mg/dL Hemoglobin A1c (4.5-6.0) % Lactic Acid (0.4-2.0) Calcium (8.4-10.2) mg/dL Total Bilirubin (0.2-1.3) mg/dL AST (14-36) U/L ALT (0-35) U/L Alkaline Phosphatase (38-126) U/L Troponin I < 0.012 (0.000-0.033) ng/mL NT-Pro-B Natriuret Pep 1620 (<300) pg/mL Serum Total Protein (6.3-8.2) g/dL Albumin (3.5-5.0) g/dL Urine Color (Yellow) Urine Appearance (Clear) Urine pH (4.6-8.0) Ur Specific [place] (1.005-1.030) Urine Protein (Negative) Urine Glucose (UA) (Negative) mg/dL Urine Ketones (Negative) Urine Blood (Negative) Urine Nitrite (Negative) Urine Bilirubin (Negative) Urine Urobilinogen (0.2) mg/dL Ur Leukocyte Esterase (Negative) U Hyaline Cast (Auto) (0-2) /LPF Urine Microscopic RBC (0-5) /HPF Urine Microscopic WBC (0-5) /HPF Ur Epithelial Cells (None Seen) /HPF Urine Bacteria (None Seen) /HPF Urine Culture Reflexed (NO) Influenza Type A Ag NEGATIVE (NEGATIVE) Influenza Type B Ag NEGATIVE (NEGATIVE) RSV (PCR) NEGATIVE (NEGATIVE) SARS-CoV-2 (PCR) NEGATIVE (NEGATIVE) 02/20/24 02/20/24 02/20/24 Range/Units 04:39 05:20 06:50 WBC (3.98-10.04) x10^3/uL RBC (3.93-5.22) x10^6/uL Hgb (11.2-15.7) g/dL Hct (34.1-44.9) % MCV (79.4-94.8) fL MCH (25.6-32.2) pg MCHC (32.2-35.5) g/dL RDW (11.7-14.4) % Plt Count (182-369) x10^3/uL MPV (9.4-12.3) fL Gran % (34.0-71.1) % Immature Gran % (Auto) (0.001-0.429) % Nucleat RBC Rel Count (0.00-0.2) % Eos # (Auto) (0.04-0.36) x10^3/uL Immature Gran # (Auto) (0.001-0.031) x10^3u/L Absolute Lymphs (auto) (1.18-3.74) x10^3/uL Absolute Monos (auto) (0.24-0.86) x10^3/uL Absolute Nucleated RBC (0.00-0.012) x10^3u/L Lymphocytes % (19.3-51.7) % Monocytes % (4.7-12.5) % Eosinophils % (0.7-5.8) % Basophils % (0.1-1.2) % Absolute Granulocytes (1.56-6.13) x10^3/uL Basophils # (0.01-0.08) x10^3/uL PT (9.4-12.5) SECONDS INR (0.8-3.0) APTT (25.1-36.5) SECONDS D-Dimer (0.0-0.50) mg/L Sodium (135-145) mmol/L Potassium (3.5-5.1) mmol/L Chloride (98-107) mmol/L Carbon Dioxide (22-30) mmol/L Anion Gap (5-15) MEQ/L BUN (7-17) mg/dL Creatinine (0.52-1.04) mg/dL Estimated GFR ML/MIN Glucose (74-106) mg/dL POC Glucometer (74 to 106) mg/dL Hemoglobin A1c 6.00 (4.5-6.0) % Lactic Acid (0.4-2.0) Calcium (8.4-10.2) mg/dL Total Bilirubin (0.2-1.3) mg/dL AST (14-36) U/L ALT (0-35) U/L Alkaline Phosphatase (38-126) U/L Troponin I < 0.012 (0.000-0.033) ng/mL NT-Pro-B Natriuret Pep (<300) pg/mL Serum Total Protein (6.3-8.2) g/dL Albumin (3.5-5.0) g/dL Urine Color Yellow (Yellow) Urine Appearance Clear (Clear) Urine pH 5.5 (4.6-8.0) Ur Specific [place] <=1.005 (1.005-1.030) Urine Protein Negative (Negative) Urine Glucose (UA) Negative (Negative) mg/dL Urine Ketones Negative (Negative) Urine Blood Negative (Negative) Urine Nitrite Negative (Negative) Urine Bilirubin Negative (Negative) Urine Urobilinogen 0.2 (0.2) mg/dL Ur Leukocyte Esterase Negative (Negative) U Hyaline Cast (Auto) NONE SEEN (0-2) /LPF Urine Microscopic RBC 0-2 (0-5) /HPF Urine Microscopic WBC 0-2 (0-5) /HPF Ur Epithelial Cells None Seen (None Seen) /HPF Urine Bacteria None Seen (None Seen) /HPF Urine Culture Reflexed NO (NO) Influenza Type A Ag (NEGATIVE) Influenza Type B Ag (NEGATIVE) RSV (PCR) (NEGATIVE) SARS-CoV-2 (PCR) (NEGATIVE) 02/20/24 02/20/24 02/20/24 Range/Units 09:01 11:30 12:24 WBC (3.98-10.04) x10^3/uL RBC (3.93-5.22) x10^6/uL Hgb (11.2-15.7) g/dL Hct (34.1-44.9) % MCV (79.4-94.8) fL MCH (25.6-32.2) pg MCHC (32.2-35.5) g/dL RDW (11.7-14.4) % Plt Count (182-369) x10^3/uL MPV (9.4-12.3) fL Gran % (34.0-71.1) % Immature Gran % (Auto) (0.001-0.429) % Nucleat RBC Rel Count (0.00-0.2) % Eos # (Auto) (0.04-0.36) x10^3/uL Immature Gran # (Auto) (0.001-0.031) x10^3u/L Absolute Lymphs (auto) (1.18-3.74) x10^3/uL Absolute Monos (auto) (0.24-0.86) x10^3/uL Absolute Nucleated RBC (0.00-0.012) x10^3u/L Lymphocytes % (19.3-51.7) % Monocytes % (4.7-12.5) % Eosinophils % (0.7-5.8) % Basophils % (0.1-1.2) % Absolute Granulocytes (1.56-6.13) x10^3/uL Basophils # (0.01-0.08) x10^3/uL PT (9.4-12.5) SECONDS INR (0.8-3.0) APTT (25.1-36.5) SECONDS D-Dimer (0.0-0.50) mg/L Sodium (135-145) mmol/L Potassium (3.5-5.1) mmol/L Chloride (98-107) mmol/L Carbon Dioxide (22-30) mmol/L Anion Gap (5-15) MEQ/L BUN (7-17) mg/dL Creatinine (0.52-1.04) mg/dL Estimated GFR ML/MIN Glucose (74-106) mg/dL POC Glucometer 185 H 164 H (74 to 106) mg/dL Hemoglobin A1c (4.5-6.0) % Lactic Acid (0.4-2.0) Calcium (8.4-10.2) mg/dL Total Bilirubin (0.2-1.3) mg/dL AST (14-36) U/L ALT (0-35) U/L Alkaline Phosphatase (38-126) U/L Troponin I < 0.012 (0.000-0.033) ng/mL NT-Pro-B Natriuret Pep (<300) pg/mL Serum Total Protein (6.3-8.2) g/dL Albumin (3.5-5.0) g/dL Urine Color (Yellow) Urine Appearance (Clear) Urine pH (4.6-8.0) Ur Specific [place] (1.005-1.030) Urine Protein (Negative) Urine Glucose (UA) (Negative) mg/dL Urine Ketones (Negative) Urine Blood (Negative) Urine Nitrite (Negative) Urine Bilirubin (Negative) Urine Urobilinogen (0.2) mg/dL Ur Leukocyte Esterase (Negative) U Hyaline Cast (Auto) (0-2) /LPF Urine Microscopic RBC (0-5) /HPF Urine Microscopic WBC (0-5) /HPF Ur Epithelial Cells (None Seen) /HPF Urine Bacteria (None Seen) /HPF Urine Culture Reflexed (NO) Influenza Type A Ag (NEGATIVE) Influenza Type B Ag (NEGATIVE) RSV (PCR) (NEGATIVE) SARS-CoV-2 (PCR) (NEGATIVE) 02/20/24 02/20/24 Range/Units 16:32 21:02 WBC (3.98-10.04) x10^3/uL RBC (3.93-5.22) x10^6/uL Hgb (11.2-15.7) g/dL Hct (34.1-44.9) % MCV (79.4-94.8) fL MCH (25.6-32.2) pg MCHC (32.2-35.5) g/dL RDW (11.7-14.4) % Plt Count (182-369) x10^3/uL MPV (9.4-12.3) fL Gran % (34.0-71.1) % Immature Gran % (Auto) (0.001-0.429) % Nucleat RBC Rel Count (0.00-0.2) % Eos # (Auto) (0.04-0.36) x10^3/uL Immature Gran # (Auto) (0.001-0.031) x10^3u/L Absolute Lymphs (auto) (1.18-3.74) x10^3/uL Absolute Monos (auto) (0.24-0.86) x10^3/uL Absolute Nucleated RBC (0.00-0.012) x10^3u/L Lymphocytes % (19.3-51.7) % Monocytes % (4.7-12.5) % Eosinophils % (0.7-5.8) % Basophils % (0.1-1.2) % Absolute Granulocytes (1.56-6.13) x10^3/uL Basophils # (0.01-0.08) x10^3/uL PT (9.4-12.5) SECONDS INR (0.8-3.0) APTT (25.1-36.5) SECONDS D-Dimer (0.0-0.50) mg/L Sodium (135-145) mmol/L Potassium (3.5-5.1) mmol/L Chloride (98-107) mmol/L Carbon Dioxide (22-30) mmol/L Anion Gap (5-15) MEQ/L BUN (7-17) mg/dL Creatinine (0.52-1.04) mg/dL Estimated GFR ML/MIN Glucose (74-106) mg/dL POC Glucometer 179 H 170 H (74 to 106) mg/dL Hemoglobin A1c (4.5-6.0) % Lactic Acid (0.4-2.0) Calcium (8.4-10.2) mg/dL Total Bilirubin (0.2-1.3) mg/dL AST (14-36) U/L ALT (0-35) U/L Alkaline Phosphatase (38-126) U/L Troponin I (0.000-0.033) ng/mL NT-Pro-B Natriuret Pep (<300) pg/mL Serum Total Protein (6.3-8.2) g/dL Albumin (3.5-5.0) g/dL Urine Color (Yellow) Urine Appearance (Clear) Urine pH (4.6-8.0) Ur Specific [place] (1.005-1.030) Urine Protein (Negative) Urine Glucose (UA) (Negative) mg/dL Urine Ketones (Negative) Urine Blood (Negative) Urine Nitrite (Negative) Urine Bilirubin (Negative) Urine Urobilinogen (0.2) mg/dL Ur Leukocyte Esterase (Negative) U Hyaline Cast (Auto) (0-2) /LPF Urine Microscopic RBC (0-5) /HPF Urine Microscopic WBC (0-5) /HPF Ur Epithelial Cells (None Seen) /HPF Urine Bacteria (None Seen) /HPF Urine Culture Reflexed (NO) Influenza Type A Ag (NEGATIVE) Influenza Type B Ag (NEGATIVE) RSV (PCR) (NEGATIVE) SARS-CoV-2 (PCR) (NEGATIVE) Accuchecks Date 02/20/24 Time 11:37 - Radiology Impressions Radiology Exams & Impressions: Radiology Procedures Category Date Time Status CHEST 1 VIEW (PORTABLE) Stat Exams 02/20/24 06:50 Completed CHEST WITHOUT CONTRAST [CT] Urgent Exams 02/20/24 10:32 Completed - Other Procedures and Tests Respiratory Therapy 02/20/24 11:44 Respiratory Therapy Assessment DAILY SHAHID Encounter - SHAHID Encounter Attestation SHAHID Encounter Attestation: "NirupersonallyseenandJAIME Barreto andhavediscussed pertinent aspects of their care with Stephany Amezquita agree with the history, physical exam (any modifications based on my personal exam will be noted below), assessment, and plan as outlined in original note. Please see immediately below for my summary of findings and additional assessment and plan along with any meaningful corrections/explanations to the Subjective/Objective portions of the SHAHID note will be noted." My portion of the encounter took place via telemedicine. -Patient admitted for COPD exacerbation, also noted to have supratherapeutic INR. On warfarin for afib, unable to afford DOAC. Treat for COPD excerbation, hold warfarin and repeat INR tomorrow. Chest CT done to rule out hematoma (it was negative) as patient reported a 'pop' in her back with excessive coughing.
[2024-02-20] MEDS ORDERED: HUMALOG ONE (10:26)
[2024-02-20] MEDS: HUMALOG SQ PRN (10:26)
[2024-02-20] MEDS: PROTONIX 40 MG IV IV SCH (10:35)
[2024-02-20] MEDS: PHARMACY DOSING REQUEST MC ONE (11:07)
[2024-02-20] MEDS: DUONEB 0.5-3 MG/3 ml Neb IH SCH (11:44)
--- NOTE | 2024-02-20 11:53 | XRAY ---
Indication: Short of breath. Back pain. History COPD. Multiple contiguous axial images obtained through the chest without contrast. Comparison: April 16, 2023 Lungs again hyperinflated with scattered bilateral fibrosis/scarring and a few tiny calcified granulomas. No suspicious pulmonary mass/nodule, infiltrate, or effusion. Heart not enlarged again with left pacemaker. Aorta again minimally etcher sclerotic without aneurysm. Stable bilateral hilar suture material and chunky calcified granulomas. No pathologic mediastinal lymphadenopathy. Bony thorax intact again with osteopenia, old right rib fractures, and moderate degenerative changes throughout spine. Limited upper abdomen again demonstrates multiple epigastric and cholecystectomy surgical clips. Impression: Again chronic findings including pulmonary emphysema, post surgical changes, chronic bony findings, and old granulomatous disease. No new/acute findings on this noncontrast exam.
[2024-02-20] MEDS ORDERED: CLARITIN 10 MG PO PRN (11:56)
[2024-02-20] MEDS ORDERED: MEDICATION INTERVENTION MC SCH ×2 (12:00→12:15)
[2024-02-20] MEDS: LASIX 20 MG PO SCH (12:32)
[2024-02-20] MEDS: Toprol Xl 50 MG PO SCH (12:32)
[2024-02-20] MEDS: solu-MEDROL 40 MG, Sterile H2O 10 ml 1 ML IV SCH (13:59)
[2024-02-20] MEDS: TYLENOL 325 MG PO PRN (14:01)
[2024-02-20] MEDS ORDERED: COLESEVELAM HCL 625 MG PO SCH (15:00)
[2024-02-20] MEDS ORDERED: VENTOLIN COMMON CANISTER IH SCH (19:00)
[2024-02-20] MEDS: Advair Hfa 115/21 Common canister IH SCH (19:00)
[2024-02-20] MEDS: NORCO 5/325 MG PO PRN (20:55)
[2024-02-20] MEDS ORDERED: NON-FORMULARY ITEM (Budesonide/Glycopyr/Formoterol [Breztri Aerosphere Inhaler] 10.7 GM Hf IH SCH (22:00)
[2024-02-20] MEDS ORDERED: NON-FORMULARY ITEM (Rosuvastatin Calcium [Crestor] 10 MG Tablet) PO SCH (22:00)
[2024-02-20] MEDS: Toprol-Xl 25MG Tablets PO SCH (22:15)
[2024-02-20] MEDS: Lantus Insulin SQ SCH (22:15)
[2024-02-20] MEDS: Ambien 10 MG PO SCH (22:15)
[2024-02-20] MEDS: ZOCOR 20MG PO SCH (22:15)
[2024-02-20] MEDS: VIBRAMYCIN 100 MG*** 100 MG in Dextrose 5%/Water IV Soln. 100ML PLUS BAG 100 ML IV SCH (22:20)
--- NOTE | 2024-02-21 05:06 | PCM.NOTE ---
Date and Time: 02/21/24 0502 Subjective Assessment: is a 73 year old female with PMHX of cataracts, arrthmia, COPD, type II DM, OA, Diverticulitis, Pancreatitis, depression, pacemaker, lung cancer with wedge resection in 2020 who presented to ED 02/20/24 with complaints of shortness of breath and back pain following a "coughing fit." Patient was r ecently in the ED 02/18/24 and diagnosed with a COPD exacerbation and discharged home on prednisone. Patient states symptoms of shortness of breath, coughing, and wheezing began last Sunday and progressively got worse over the weekend. She reports she felt a "pop" in her back when coughing. Denies fever, cp, n/v/d, headache, or dizziness. No recent sick contacts. Had Mohs surgery yesterday on top of scalp with [facility]. She held her coumadin yesterday. Coumadin managed by [facility] coumadin clinic. Upon arrival to ED vitals stable. CXR with no acute findings. CT chest with no acute findings. Lab findings remarkable for INR of 6.96 and BNP 1620. Respiratory viral panel negative. Patient given Doxycyline/ceftriaxone and solumedrol in ED. Admit for COPD exacerbation and supratherapeutic INR. 02/21/24: Met with patient bedside. Endorses continued dyspnea, cough, and wheezing. Currently on 2L oxygen - RA at baseline. INR now at 8.83 - patient given vitamin K this morning. Plan to continue current abx/steroids. Pharmacy - coumadin clinic managing INR. Denies fever, cp, abdominal pain, MORA, dizziness, N/V/D. - Review of Systems Constitutional: No Symptoms Eyes: No Symptoms Ears, Nose, & Throat: Nose Congestion Respiratory: Cough, Short Of Breath, Wheezing Cardiac: No Symptoms Abdominal/Gastrointestinal: No Symptoms Genitourinary Symptoms: No Symptoms Musculoskeletal: No Symptoms Skin: No Symptoms Neurological: No Symptoms Psychological: No Symptoms Endocrine: No Symptoms Hematologic/Lymphatic: No Symptoms Immunological/Allergic: No Symptoms Objective Exam General Appearance: no apparent distress Neurologic Exam: alert, 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, cooperative Skin Exam: normal color Eye Exam: PERRL Ears, Nose, Throat Exam: normal ENT inspection Neck Exam: normal inspection Respiratory Exam: diminished breath sounds, crackles/rales, wheezing Cardiovascular Exam: regular rate/rhythm, normal heart sounds Gastrointestinal/Abdomen Exam: soft, normal bowel sounds Extremity Exam: normal inspection Back Exam: normal inspection Pelvic Exam: deferred Rectal Exam: deferred Objective Data Vital Signs: Vital Signs - 24 hr Temp Pulse Resp BP BP Pulse Ox 02/21/24 04:00 96.7 F 65 19 146/73 98 02/21/24 00:56 59 L 20 95 02/21/24 00:00 97.5 F 60 17 132/62 97 02/20/24 19:59 97.8 F 87 16 127/60 96 02/20/24 19:04 87 16 96 02/20/24 15:38 97.8 F 59 L 16 129/65 97 02/20/24 11:46 62 16 96 02/20/24 11:38 98.0 F 60 16 131/91 96 02/20/24 09:00 91 L 02/20/24 08:30 97.6 F 65 16 139/69 93 L 02/20/24 08:28 97.6 F 65 16 139/69 93 L 02/20/24 08:00 60 17 119/60 91 L 02/20/24 07:51 98 02/20/24 07:30 61 22 139/67 91 L 02/20/24 07:00 60 24 143/63 95 02/20/24 06:50 60 14 94 L 02/20/24 06:40 60 16 91 L 02/20/24 06:30 63 21 90 L 02/20/24 06:20 66 21 90 L 02/20/24 06:10 60 24 91 L 02/20/24 06:00 61 18 89 L 02/20/24 05:50 61 21 90 L 02/20/24 05:40 61 22 95 02/20/24 05:32 60 22 94 L Pain Assessment - Last Documented Pain Intensity 0 Pain Scale Used 0-10 Pain Scale Intake and Output: Intake & Output 02/18/24 02/19/24 02/20/24 02/21/24 11:59 11:59 11:59 11:59 Intake Total 120 1200 Balance 120 1200 Weight 117.6 kg Lab Results: Lab Results-Last 24 Hours 02/20/24 02/20/24 02/20/24 Range/Units 04:39 04:39 04:39 PT 66.8 H (9.4-12.5) SECONDS INR 6.96 H* (0.8-3.0) APTT 37.0 H (25.1-36.5) SECONDS D-Dimer < 0.19 (0.0-0.50) mg/L Sodium 139 (135-145) mmol/L Potassium 4.3 (3.5-5.1) mmol/L Chloride 106 (98-107) mmol/L Carbon Dioxide 27 (22-30) mmol/L Anion Gap 10.9 (5-15) MEQ/L BUN 21 H (7-17) mg/dL Creatinine 0.92 (0.52-1.04) mg/dL Estimated GFR 65.8 ML/MIN Glucose 156 H (74-106) mg/dL POC Glucometer (74 to 106) mg/dL Hemoglobin A1c (4.5-6.0) % Calcium 8.8 (8.4-10.2) mg/dL Total Bilirubin 0.70 (0.2-1.3) mg/dL AST 30 (14-36) U/L ALT 24 (0-35) U/L Alkaline Phosphatase 69 (38-126) U/L Troponin I < 0.012 (0.000-0.033) ng/mL NT-Pro-B Natriuret Pep 1620 (<300) pg/mL Serum Total Protein 6.1 L (6.3-8.2) g/dL Albumin 3.8 (3.5-5.0) g/dL Urine Color (Yellow) Urine Appearance (Clear) Urine pH (4.6-8.0) Ur Specific [place] (1.005-1.030) Urine Protein (Negative) Urine Glucose (UA) (Negative) mg/dL Urine Ketones (Negative) Urine Blood (Negative) Urine Nitrite (Negative) Urine Bilirubin (Negative) Urine Urobilinogen (0.2) mg/dL Ur Leukocyte Esterase (Negative) U Hyaline Cast (Auto) (0-2) /LPF Urine Microscopic RBC (0-5) /HPF Urine Microscopic WBC (0-5) /HPF Ur Epithelial Cells (None Seen) /HPF Urine Bacteria (None Seen) /HPF Urine Culture Reflexed (NO) Influenza Type A Ag (NEGATIVE) Influenza Type B Ag (NEGATIVE) RSV (PCR) (NEGATIVE) SARS-CoV-2 (PCR) (NEGATIVE) 02/20/24 02/20/24 02/20/24 Range/Units 04:39 04:39 05:20 PT (9.4-12.5) SECONDS INR (0.8-3.0) APTT (25.1-36.5) SECONDS D-Dimer (0.0-0.50) mg/L Sodium (135-145) mmol/L Potassium (3.5-5.1) mmol/L Chloride (98-107) mmol/L Carbon Dioxide (22-30) mmol/L Anion Gap (5-15) MEQ/L BUN (7-17) mg/dL Creatinine (0.52-1.04) mg/dL Estimated GFR ML/MIN Glucose (74-106) mg/dL POC Glucometer (74 to 106) mg/dL Hemoglobin A1c 6.00 (4.5-6.0) % Calcium (8.4-10.2) mg/dL Total Bilirubin (0.2-1.3) mg/dL AST (14-36) U/L ALT (0-35) U/L Alkaline Phosphatase (38-126) U/L Troponin I (0.000-0.033) ng/mL NT-Pro-B Natriuret Pep (<300) pg/mL Serum Total Protein (6.3-8.2) g/dL Albumin (3.5-5.0) g/dL Urine Color Yellow (Yellow) Urine Appearance Clear (Clear) Urine pH 5.5 (4.6-8.0) Ur Specific [place] <=1.005 (1.005-1.030) Urine Protein Negative (Negative) Urine Glucose (UA) Negative (Negative) mg/dL Urine Ketones Negative (Negative) Urine Blood Negative (Negative) Urine Nitrite Negative (Negative) Urine Bilirubin Negative (Negative) Urine Urobilinogen 0.2 (0.2) mg/dL Ur Leukocyte Esterase Negative (Negative) U Hyaline Cast (Auto) NONE SEEN (0-2) /LPF Urine Microscopic RBC 0-2 (0-5) /HPF Urine Microscopic WBC 0-2 (0-5) /HPF Ur Epithelial Cells None Seen (None Seen) /HPF Urine Bacteria None Seen (None Seen) /HPF Urine Culture Reflexed NO (NO) Influenza Type A Ag NEGATIVE (NEGATIVE) Influenza Type B Ag NEGATIVE (NEGATIVE) RSV (PCR) NEGATIVE (NEGATIVE) SARS-CoV-2 (PCR) NEGATIVE (NEGATIVE) 02/20/24 02/20/24 02/20/24 Range/Units 06:50 09:01 11:30 PT (9.4-12.5) SECONDS INR (0.8-3.0) APTT (25.1-36.5) SECONDS D-Dimer (0.0-0.50) mg/L Sodium (135-145) mmol/L Potassium (3.5-5.1) mmol/L Chloride (98-107) mmol/L Carbon Dioxide (22-30) mmol/L Anion Gap (5-15) MEQ/L BUN (7-17) mg/dL Creatinine (0.52-1.04) mg/dL Estimated GFR ML/MIN Glucose (74-106) mg/dL POC Glucometer 185 H 164 H (74 to 106) mg/dL Hemoglobin A1c (4.5-6.0) % Calcium (8.4-10.2) mg/dL Total Bilirubin (0.2-1.3) mg/dL AST (14-36) U/L ALT (0-35) U/L Alkaline Phosphatase (38-126) U/L Troponin I < 0.012 (0.000-0.033) ng/mL NT-Pro-B Natriuret Pep (<300) pg/mL Serum Total Protein (6.3-8.2) g/dL Albumin (3.5-5.0) g/dL Urine Color (Yellow) Urine Appearance (Clear) Urine pH (4.6-8.0) Ur Specific [place] (1.005-1.030) Urine Protein (Negative) Urine Glucose (UA) (Negative) mg/dL Urine Ketones (Negative) Urine Blood (Negative) Urine Nitrite (Negative) Urine Bilirubin (Negative) Urine Urobilinogen (0.2) mg/dL Ur Leukocyte Esterase (Negative) U Hyaline Cast (Auto) (0-2) /LPF Urine Microscopic RBC (0-5) /HPF Urine Microscopic WBC (0-5) /HPF Ur Epithelial Cells (None Seen) /HPF Urine Bacteria (None Seen) /HPF Urine Culture Reflexed (NO) Influenza Type A Ag (NEGATIVE) Influenza Type B Ag (NEGATIVE) RSV (PCR) (NEGATIVE) SARS-CoV-2 (PCR) (NEGATIVE) 02/20/24 02/20/24 02/20/24 Range/Units 12:24 16:32 21:02 PT (9.4-12.5) SECONDS INR (0.8-3.0) APTT (25.1-36.5) SECONDS D-Dimer (0.0-0.50) mg/L Sodium (135-145) mmol/L Potassium (3.5-5.1) mmol/L Chloride (98-107) mmol/L Carbon Dioxide (22-30) mmol/L Anion Gap (5-15) MEQ/L BUN (7-17) mg/dL Creatinine (0.52-1.04) mg/dL Estimated GFR ML/MIN Glucose (74-106) mg/dL POC Glucometer 179 H 170 H (74 to 106) mg/dL Hemoglobin A1c (4.5-6.0) % Calcium (8.4-10.2) mg/dL Total Bilirubin (0.2-1.3) mg/dL AST (14-36) U/L ALT (0-35) U/L Alkaline Phosphatase (38-126) U/L Troponin I < 0.012 (0.000-0.033) ng/mL NT-Pro-B Natriuret Pep (<300) pg/mL Serum Total Protein (6.3-8.2) g/dL Albumin (3.5-5.0) g/dL Urine Color (Yellow) Urine Appearance (Clear) Urine pH (4.6-8.0) Ur Specific [place] (1.005-1.030) Urine Protein (Negative) Urine Glucose (UA) (Negative) mg/dL Urine Ketones (Negative) Urine Blood (Negative) Urine Nitrite (Negative) Urine Bilirubin (Negative) Urine Urobilinogen (0.2) mg/dL Ur Leukocyte Esterase (Negative) U Hyaline Cast (Auto) (0-2) /LPF Urine Microscopic RBC (0-5) /HPF Urine Microscopic WBC (0-5) /HPF Ur Epithelial Cells (None Seen) /HPF Urine Bacteria (None Seen) /HPF Urine Culture Reflexed (NO) Influenza Type A Ag (NEGATIVE) Influenza Type B Ag (NEGATIVE) RSV (PCR) (NEGATIVE) SARS-CoV-2 (PCR) (NEGATIVE) Radiology Exams: Radiology Procedures Category Date Time Status CHEST 1 VIEW (PORTABLE) Stat Exams 12/11/24 06:50 Completed CHEST WITHOUT CONTRAST [CT] Urgent Exams 02/20/24 10:32 Completed Assessment/Plan (1) COPD exacerbation Current Visit: Yes Status: Acute Assessment & Plan: -CXR reviewed with no acute findings -CT chest reviewed with no acute findings -RA at baseline - currently RA -Supplemental oxygen with goal spo2 88-92% -Nebs/INH -RT eval and follow -Doxycycline -solumedrol 02/20: -CMP/CBC reviewed and unremarkable -continue solumedrol/doxycycline -on 2L - has qualified for home oxygen Code(s): J44.1 - CHRONIC OBSTRUCTIVE PULMONARY DISEASE W (ACUTE) EXACERBATION (2) Back pain Current Visit: Yes Status: Acute Assessment & Plan: -Nodule to mid back noted on exam -CT chest ordered and pending -pain controlled at this time 02/20: -Resolved Code(s): M54.9 - DORSALGIA, UNSPECIFIED (3) History of atrial fibrillation Current Visit: Yes Status: Acute Assessment & Plan: -On coumadin - currently on hold due to supratherapeutic INR -continue metoprolol Code(s): Z86.79 - PERSONAL HISTORY OF OTHER DISEASES OF THE CIRCULATORY SYSTEM (4) Supratherapeutic INR Current Visit: Yes Status: Acute Assessment & Plan: -Hold coumadin - pharmacy manages OP - will consult for management while IP 02/20: -Inr reviewed at 8.83- vitamin K given Code(s): R79.1 - ABNORMAL COAGULATION PROFILE (5) Hx of cancer of lung Current Visit: No Status: Acute Assessment & Plan: -s/p right lobectomy Code(s): Z85.118 - PERSONAL HISTORY OF MALIGNANT NEOPLASM OF BRONCHUS AND LUNG (6) HTN (hypertension) Current Visit: No Status: Chronic Assessment & Plan: -stable continue home meds Code(s): I10 - ESSENTIAL (PRIMARY) HYPERTENSION (7) Obesity, Class III, BMI 40-49.9 (morbid obesity) Current Visit: No Status: Chronic Assessment & Plan: -advised ADA diet and exercise Code(s): E66.01 - MORBID (SEVERE) OBESITY DUE TO EXCESS CALORIES (8) Type 2 diabetes mellitus Current Visit: No Status: Chronic Qualifiers: 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 use Diabetes mellitus complication status: without complication Qualified Code(s): E11.9 - Type 2 diabetes mellitus without complications Assessment & Plan: -ada diet -a1c -SSI/glargine Code(s): J44.1 - CHRONIC OBSTRUCTIVE PULMONARY DISEASE W (ACUTE) EXACERBATION (2) Back pain Current Visit: Yes Status: Acute Code(s): M54.9 - DORSALGIA, UNSPECIFIED (3) History of atrial fibrillation Current Visit: Yes Status: Acute Code(s): Z86.79 - PERSONAL HISTORY OF OTHER DISEASES OF THE CIRCULATORY SYSTEM (4) Supratherapeutic INR Current Visit: Yes Status: Acute Code(s): R79.1 - ABNORMAL COAGULATION PROFILE (5) Hx of cancer of lung Current Visit: No Status: Acute Code(s): Z85.118 - PERSONAL HISTORY OF MALIGNANT NEOPLASM OF BRONCHUS AND LUNG (6) HTN (hypertension) Current Visit: No Status: Chronic Code(s): I10 - ESSENTIAL (PRIMARY) HYPERTENSION (7) Obesity, Class III, BMI 40-49.9 (morbid obesity) Current Visit: No Status: Chronic Code(s): E66.01 - MORBID (SEVERE) OBESITY DUE TO EXCESS CALORIES (8) Type 2 diabetes mellitus Current Visit: No Status: Chronic Qualifiers: 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
[2024-02-21 05:46] LABS: Hematocrit 34.1 % (34.1-44.9); Hemoglobin 10.9 g/dL (11.2-15.7); Mean Cell Volume 85.9 fL (79.4-94.8); Mean Corpuscular Hemoglobin 27.5 pg (25.6-32.2); Mean Platelet Volume 11.5 fL (9.4-12.3); Platelet Count 176 x10^3/uL (182-369); Red Blood Count 3.97 x10^6/uL (3.93-5.22); Red Cell Distribution Width 17.2 % (11.7-14.4); White Blood Count 6.4 x10^3/uL (3.98-10.04)
[2024-02-21 06:03] LABS: ALBUMIN 3.6 g/dL (3.5-5.0); ANION GAP 7.7 MEQ/L (5-15); BILIRUBIN,TOTAL 0.3 mg/dL (0.2-1.3); Calcium 8.4 mg/dL (8.4-10.2); Creatinine 1 0.81 mg/dL (0.52-1.04); EST GLOMERULAR FILTRATION RATE 76.6 ML/MIN; Potassium 3.8 mmol/L (3.5-5.1); Total Protein 6.2 g/dL (6.3-8.2)
[2024-02-21 06:10] LABS: PROTIME 83.5 SECONDS (9.4-12.5)
[2024-02-21 06:15] LABS: INR 8.83 (0.8-3.0)
[2024-02-21 06:23] LABS: Lymphocytes 13 % (19.3-51.7); Monocyte 2 % (4.7-12.5); Neutrophils 85 % (34.0-71.1); Total Cells Counted 100
[2024-02-21 06:24] LABS: Platelet Estimate NORMAL (NORMAL)
[2024-02-21] MEDS: Vitamin K 10 MG/ML PO ONE (06:45)
[2024-02-21] MEDS ORDERED: Zithromax 500 MG/ 250 ML NaCl Premix 500 MG/250 ML IVPB IV SCH (10:00)
--- NOTE | 2024-02-22 05:01 | PCM.NOTE ---
Date and Time: 02/22/24 0500 Subjective Assessment: is a 73 year old female with PMHX of cataracts, arrthmia, COPD, type II DM, OA, Diverticulitis, Pancreatitis, depression, pacemaker, lung cancer with wedge resection in 2020 who presented to ED 02/20/24 with complaints of shortness of breath and back pain following a "coughing fit." Patient was r ecently in the ED 02/18/24 and diagnosed with a COPD exacerbation and discharged home on prednisone. Patient states symptoms of shortness of breath, coughing, and wheezing began last Sunday and progressively got worse over the weekend. She reports she felt a "pop" in her back when coughing. Denies fever, cp, n/v/d, headache, or dizziness. No recent sick contacts. Had Mohs surgery yesterday on top of scalp with [facility] -Dermatology. She held her coumadin yesterday. Coumadin managed by [facility] coumadin clinic. Upon arrival to ED vitals stable. CXR with no acute findings. CT chest with no acute findings. Lab findings remarkable for INR of 6.96 and BNP 1620. Respiratory viral panel negative. Patient given Doxycyline/ceftriaxone and solumedrol in ED. Admit for COPD exacerbation and supratherapeutic INR. 02/21/24: Met with patient bedside. Endorses continued dyspnea, cough, and wheezing. Currently on 2L oxygen - RA at baseline. INR now at 8.83 - patient given vitamin K this morning. Plan to continue current abx/steroids. Pharmacy - coumadin clinic managing INR. Denies fever, cp, abdominal pain, MORA, dizziness, N/V/D. Objective Data Vital Signs: Vital Signs - 24 hr Temp Pulse Resp BP Pulse Ox 02/22/24 04:00 97.8 F 61 19 137/63 95 02/22/24 01:10 60 16 91 L 02/22/24 00:00 97.5 F 60 16 146/67 93 L 02/21/24 20:00 97.3 F 78 13 135/64 93 L 02/21/24 19:05 63 18 95 02/21/24 16:00 98.8 F 60 18 149/66 95 02/21/24 12:55 73 20 95 02/21/24 12:00 97.9 F 60 18 149/71 94 L 02/21/24 07:51 98.6 F 63 18 134/73 93 L 02/21/24 06:28 68 18 92 L Pain Assessment - Last Documented Pain Intensity 0 Pain Scale Used 0-10 Pain Scale Intake and Output: Intake & Output 02/19/24 02/20/24 02/21/24 02/22/24 11:59 11:59 11:59 11:59 Intake Total 120 1440 1660 Balance 120 1440 1660 Weight 117.6 kg 117 kg Lab Results: Lab Results-Last 24 Hours 02/21/24 02/21/24 02/21/24 Range/Units 05:41 05:41 05:41 WBC 6.4 (3.98-10.04) x10^3/uL RBC 3.97 (3.93-5.22) x10^6/uL Hgb 10.9 L (11.2-15.7) g/dL Hct 34.1 (34.1-44.9) % MCV 85.9 (79.4-94.8) fL MCH 27.5 (25.6-32.2) pg MCHC 32.0 L (32.2-35.5) g/dL RDW 17.2 H (11.7-14.4) % Plt Count 176 L (182-369) x10^3/uL MPV 11.5 (9.4-12.3) fL Segmented Neutrophils 85 H (34.0-71.1) % Lymphocytes (Manual) 13 L (19.3-51.7) % Monocytes (Manual) 2 L (4.7-12.5) % Platelet Estimate NORMAL (NORMAL) RBC Morphology NORMAL PT 83.5 H (9.4-12.5) SECONDS INR 8.83 H* (0.8-3.0) Sodium 136 (135-145) mmol/L Potassium 3.8 (3.5-5.1) mmol/L Chloride 102 (98-107) mmol/L Carbon Dioxide 30 (22-30) mmol/L Anion Gap 7.7 (5-15) MEQ/L BUN 21 H (7-17) mg/dL Creatinine 0.81 (0.52-1.04) mg/dL Estimated GFR 76.6 ML/MIN Glucose 155 H (74-106) mg/dL POC Glucometer (74 to 106) mg/dL Calcium 8.4 (8.4-10.2) mg/dL Total Bilirubin 0.30 (0.2-1.3) mg/dL AST 20 (14-36) U/L ALT 20 (0-35) U/L Alkaline Phosphatase 58 (38-126) U/L Serum Total Protein 6.2 L (6.3-8.2) g/dL Albumin 3.6 (3.5-5.0) g/dL 02/21/24 02/21/24 02/21/24 Range/Units 07:11 11:18 16:13 WBC (3.98-10.04) x10^3/uL RBC (3.93-5.22) x10^6/uL Hgb (11.2-15.7) g/dL Hct (34.1-44.9) % MCV (79.4-94.8) fL MCH (25.6-32.2) pg MCHC (32.2-35.5) g/dL RDW (11.7-14.4) % Plt Count (182-369) x10^3/uL MPV (9.4-12.3) fL Segmented Neutrophils (34.0-71.1) % Lymphocytes (Manual) (19.3-51.7) % Monocytes (Manual) (4.7-12.5) % Platelet Estimate (NORMAL) RBC Morphology PT (9.4-12.5) SECONDS INR (0.8-3.0) Sodium (135-145) mmol/L Potassium (3.5-5.1) mmol/L Chloride (98-107) mmol/L Carbon Dioxide (22-30) mmol/L Anion Gap (5-15) MEQ/L BUN (7-17) mg/dL Creatinine (0.52-1.04) mg/dL Estimated GFR ML/MIN Glucose (74-106) mg/dL POC Glucometer 149 H 259 H 136 H (74 to 106) mg/dL Calcium (8.4-10.2) mg/dL Total Bilirubin (0.2-1.3) mg/dL AST (14-36) U/L ALT (0-35) U/L Alkaline Phosphatase (38-126) U/L Serum Total Protein (6.3-8.2) g/dL Albumin (3.5-5.0) g/dL 02/21/24 Range/Units 21:47 WBC (3.98-10.04) x10^3/uL RBC (3.93-5.22) x10^6/uL Hgb (11.2-15.7) g/dL Hct (34.1-44.9) % MCV (79.4-94.8) fL MCH (25.6-32.2) pg MCHC (32.2-35.5) g/dL RDW (11.7-14.4) % Plt Count (182-369) x10^3/uL MPV (9.4-12.3) fL Segmented Neutrophils (34.0-71.1) % Lymphocytes (Manual) (19.3-51.7) % Monocytes (Manual) (4.7-12.5) % Platelet Estimate (NORMAL) RBC Morphology PT (9.4-12.5) SECONDS INR (0.8-3.0) Sodium (135-145) mmol/L Potassium (3.5-5.1) mmol/L Chloride (98-107) mmol/L Carbon Dioxide (22-30) mmol/L Anion Gap (5-15) MEQ/L BUN (7-17) mg/dL Creatinine (0.52-1.04) mg/dL Estimated GFR ML/MIN Glucose (74-106) mg/dL POC Glucometer 226 H (74 to 106) mg/dL Calcium (8.4-10.2) mg/dL Total Bilirubin (0.2-1.3) mg/dL AST (14-36) U/L ALT (0-35) U/L Alkaline Phosphatase (38-126) U/L Serum Total Protein (6.3-8.2) g/dL Albumin (3.5-5.0) g/dL Radiology Exams: Radiology Procedures Category Date Time Status CHEST 1 VIEW (PORTABLE) Stat Exams 02/20/24 06:50 Completed CHEST WITHOUT CONTRAST [CT] Urgent Exams 02/20/24 10:32 Completed Multi-Disciplinary Progress Notes: Multi-Disciplinary Progress Notes 02/21/24 12:47 Case Management Note by Rachel Sainz S/W PATIENT- SHE CONTINUES TO PLAN TO DC HOME TO HER PLF AND DENIES ANY NEW NEEDS FOR TIME OF DC Initialized on 02/21/24 12:47 - END OF NOTE 02/21/24 10:34 Respiratory Note by Prisca Osman PT'S O2 SAT ON ROOM AIR WHILE AT REST WAS 93%. PT'S O2 SAT ON ROOM AIR WHILE WALKING WAS 94%. Initialized on 02/21/24 10:34 - END OF NOTE Assessment/Plan (1) COPD exacerbation Current Visit: Yes Status: Acute Assessment & Plan: -CXR reviewed with no acute findings -CT chest reviewed with no acute findings -RA at baseline - currently RA -Supplemental oxygen with goal spo2 88-92% -Nebs/INH -RT eval and follow -Doxycycline -solumedrol 02/20: -CMP/CBC reviewed and unremarkable -continue solumedrol/doxycycline -on 2L - has qualified for home oxygen Code(s): J44.1 - CHRONIC OBSTRUCTIVE PULMONARY DISEASE W (ACUTE) EXACERBATION (2) Back pain Current Visit: Yes Status: Acute Assessment & Plan: -Nodule to mid back noted on exam -CT chest ordered and pending -pain controlled at this time 02/20: -Resolved Code(s): M54.9 - DORSALGIA, UNSPECIFIED (3) History of atrial fibrillation Current Visit: Yes Status: Acute Assessment & Plan: -On coumadin - currently on hold due to supratherapeutic INR -continue metoprolol Code(s): Z86.79 - PERSONAL HISTORY OF OTHER DISEASES OF THE CIRCULATORY SYSTEM (4) Supratherapeutic INR Current Visit: Yes Status: Acute Assessment & Plan: -Hold coumadin - pharmacy manages OP - will consult for management while IP 02/20: -Inr reviewed at 8.83- vitamin K given Code(s): R79.1 - ABNORMAL COAGULATION PROFILE (5) Hx of cancer of lung Current Visit: No Status: Acute Assessment & Plan: -s/p right lobectomy Code(s): Z85.118 - PERSONAL HISTORY OF MALIGNANT NEOPLASM OF BRONCHUS AND LUNG (6) HTN (hypertension) Current Visit: No Status: Chronic Assessment & Plan: -stable continue home meds Code(s): I10 - ESSENTIAL (PRIMARY) HYPERTENSION (7) Obesity, Class III, BMI 40-49.9 (morbid obesity) Current Visit: No Status: Chronic Assessment & Plan: -advised ADA diet and exercise Code(s): E66.01 - MORBID (SEVERE) OBESITY DUE TO EXCESS CALORIES (8) Type 2 diabetes mellitus Current Visit: No Status: Chronic Qualifiers: 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 use: without mcfp use Diabetes mellitus complication status: without complication Qualified Code(s): E11.9 - Type 2 diabetes mellitus without complications Assessment & Plan: -ada diet -a1c -SSI/glargine Code(s): J44.1 - CHRONIC OBSTRUCTIVE PULMONARY DISEASE W (ACUTE) EXACERBATION (2) Back pain Current Visit: Yes Status: Acute Code(s): M54.9 - DORSALGIA, UNSPECIFIED (3) History of atrial fibrillation Current Visit: Yes Status: Acute Code(s): Z86.79 - PERSONAL HISTORY OF OTHER DISEASES OF THE CIRCULATORY SYSTEM (4) Supratherapeutic INR Current Visit: Yes Status: Acute Code(s): R79.1 - ABNORMAL COAGULATION PROFILE (5) Hx of cancer of lung Current Visit: No Status: Acute Code(s): Z85.118 - PERSONAL HISTORY OF MALIGNANT NEOPLASM OF BRONCHUS AND LUNG (6) HTN (hypertension) Current Visit: No Status: Chronic Code(s): I10 - ESSENTIAL (PRIMARY) HYPERTENSION (7) Obesity, Class III, BMI 40-49.9 (morbid obesity) Current Visit: No Status: Chronic Code(s): E66.01 - MORBID (SEVERE) OBESITY DUE TO EXCESS CALORIES (8) Type 2 diabetes mellitus Current Visit: No Status: Chronic Qualifiers: Diabetes mellitus mcfp insulin use: without mcfp use Diabetes mellitus complication status: without complication Qualified Code(s): E11.9 - Type 2 diabetes mellitus without complications
[2024-02-22 05:35] LABS: Mean Corpuscular Hgb Concent. 31.4 g/dL (32.2-35.5); Platelet Count 183 x10^3/uL (182-369); Red Blood Count 4.07 x10^6/uL (3.93-5.22); Red Cell Distribution Width 17.2 % (11.7-14.4); White Blood Count 7.6 x10^3/uL (3.98-10.04)
[2024-02-22 05:57] LABS: INR 1.26 (0.8-3.0); PROTIME 13.5 SECONDS (9.4-12.5)
[2024-02-22 06:03] LABS: ALBUMIN 3.5 g/dL (3.5-5.0); BILIRUBIN,TOTAL 0.6 mg/dL (0.2-1.3); Calcium 8.3 mg/dL (8.4-10.2); Creatinine 1 0.8 mg/dL (0.52-1.04); EST GLOMERULAR FILTRATION RATE 77.8 ML/MIN; Potassium 3.6 mmol/L (3.5-5.1); Total Protein 6.1 g/dL (6.3-8.2)
[2024-02-22 07:24] LABS: Lymphocytes 9 % (19.3-51.7); Monocyte 4 % (4.7-12.5); Neutrophils 87 % (34.0-71.1); Total Cells Counted 100
[2024-02-22 07:25] LABS: Platelet Estimate NORMAL (NORMAL)
[2024-02-22] MEDS: COUMADIN PO ONE (11:16)
[2024-02-22 11:39] VITALS: BP 162/67; TEMP 97.9
--- NOTE | 2024-02-22 11:55 | PCM.DS ---
Discharge Summary Date of Admission: 02/20/24 08:26 Date of Discharge: 02/22/24 Admitting Physician: MARIPOSA KAYE MD Primary Care Provider: [facility] Allergies Allergies clarithromycin [From Biaxin] Allergy (Severe, Verified 02/20/24 04:06) Hives Coconut Allergy (Severe, Verified 02/20/24 04:06) Difficulty Breathing green dye *RETIRED-07/03/12 [Green Dye] Allergy (Mild, Verified 02/20/24 04:06) Swelling swelling ears red dye [Red Dye] Allergy (Mild, Verified 02/20/24 04:06) Swelling ears swell adhesive Allergy (Verified 02/20/24 04:06) Rash cholestyramine Allergy (Verified 02/20/24 04:06) iodine Allergy (Verified 02/20/24 04:06) Wheezing latex Allergy (Verified 02/20/24 04:06) Rash nitrofurantoin [From Macrobid] Allergy (Verified 02/20/24 04:06) levofloxacin [From Levaquin] Adverse Reaction (Mild, Verified 02/20/24 04:06) [facility] Summary - Hospital Course Hospital Course: is a 73 year old female with PMHX of cataracts, arrthmia, COPD, type II DM, OA, Diverticulitis, Pancreatitis, depression, pacemaker, lung cancer with wedge resection in 2020 who presented to ED 02/20/24 with complaints of shortness of breath and back pain following a "coughing fit." Patient was recently in the ED 02/18/24 and diagnosed with a COPD exacerbation and discharged home on prednisone. Patient states symptoms of shortness of breath, coughing, and wheezing began last Sunday and progressively got worse over the weekend. She reports she felt a "pop" in her back when coughing. Denies fever, cp, n/v/d, headache, or dizziness. No recent sick contacts. Had Mohs surgery yesterday on top of scalp with [facility] Mccracken -Dermatology. She held her coumadin yesterday. Coumadin managed by [facility] coumadin clinic. Upon arrival to ED vitals stable. CXR with no acute findings. CT chest with no acute findings. Lab findin gs remarkable for INR of 6.96 and BNP 1620. Respiratory viral panel negative. Patient given Doxycyline/ceftriaxone and solumedrol in ED. Admit for COPD exacerbation and supratherapeutic INR. Dyspnea and cough have improved. Patient is on baseline RA. Will send home on Doxycycline and medrol dose pack. INR managed by coumadin clinic. Patient resumed on 5mg with close monitoring while on steroids - will recheck 02/26/24. Patient agreeable to plan and ready for discharge. Advised to monitor blood glucose levels closely with steroid use. Discharge Note New Diagnosis: copd exacerbation/supratherapeutic INR New Medications: Doxy/medrol dose pack Follow Up: coumadin clinic - pcp Latest Assessment & Plan (1) COPD exacerbation Current Visit: Yes Status: Acute Assessment & Plan: -CXR reviewed with no acute findings -CT chest reviewed with no acute findings -RA at baseline - currently RA -Supplemental oxygen with goal spo2 88-92% -Nebs/INH -RT eval and follow -Doxycycline -solumedrol 02/20: -CMP/CBC reviewed and unremarkable -continue solumedrol/doxycycline -on 2L - has qualified for home oxygen Code(s): J44.1 - CHRONIC OBSTRUCTIVE PULMONARY DISEASE W (ACUTE) EXACERBATION (2) Back pain Current Visit: Yes Status: Acute Assessment & Plan: -Nodule to mid back noted on exam -CT chest ordered and pending -pain controlled at this time 02/20: -Resolved Code(s): M54.9 - DORSALGIA, UNSPECIFIED (3) History of atrial fibrillation Current Visit: Yes Status: Acute Assessment & Plan: -On coumadin - currently on hold due to supratherapeutic INR -continue metoprolol Code(s): Z86.79 - PERSONAL HISTORY OF OTHER DISEASES OF THE CIRCULATORY SYSTEM (4) Supratherapeutic INR Current Visit: Yes Status: Acute Assessment & Plan: -Hold coumadin - pharmacy manages OP - will consult for management while IP 02/20: -Inr reviewed at 8.83- vitamin K given 02/21 INR at 1.26- coumadin clinic to manage - coumadin 5mg resumed with recheck on 02/25 Code(s): R79.1 - ABNORMAL COAGULATION PROFILE (5) Hx of cancer of lung Current Visit: No Status: Acute Assessment & Plan: -s/p right lobectomy Code(s): Z85.118 - PERSONAL HISTORY OF MALIGNANT NEOPLASM OF BRONCHUS AND LUNG (6) HTN (hypertension) Current Visit: No Status: Chronic Assessment & Plan: -stable continue home meds Code(s): I10 - ESSENTIAL (PRIMARY) HYPERTENSION (7) Obesity, Class III, BMI 40-49.9 (morbid obesity) Current Visit: No Status: Chronic Assessment & Plan: -advised ADA diet and exercise Code(s): E66.01 - MORBID (SEVERE) OBESITY DUE TO EXCESS CALORIES (8) Type 2 diabetes mellitus Current Visit: No Status: Chronic Qualifiers: Diabetes mellitus senior living insulin use: without senior living use Diabetes mellitus complication status: without complication Qualified Code(s): E11.9 - Type 2 diabetes mellitus without complications Assessment & Plan: -ada diet -a1c -SSI/glargine I spent 35 minutes [id number] with the patient on the day of discharge performing discharge exam, discussing hospital stay and discharge instructions with patient and caregivers, preparation of discharge records, prescriptions & referral forms and addressing any questions/concerns the patient had as documented above. - Vitals & Intake/Output Vital Signs: Vital Signs Temperature 97.9 F 02/22/24 11:36 Pulse Rate 65 02/22/24 11:36 Respiratory Rate 20 02/22/24 11:36 Blood Pressure 162/67 02/22/24 11:36 O2 Sat by Pulse Oximetry 92 L 02/22/24 11:36 Intake & Output: Intake & Output 02/19/24 02/20/24 02/21/24 02/22/24 11:59 11:59 11:59 11:59 Intake Total 120 1440 1900 Balance 120 1440 1900 Weight 117.6 kg 117 kg 117.2 kg - Lab Result Diagrams: 02/22/24 05:23 02/22/24 05:23 Lab Results-Last 24 Hrs: Lab Results-Last 24 Hours 02/21/24 02/21/24 02/22/24 Range/Units 16:13 21:47 05:23 WBC 7.6 (3.98-10.04) x10^3/uL RBC 4.07 (3.93-5.22) x10^6/uL Hgb 11.0 L (11.2-15.7) g/dL Hct 35.0 (34.1-44.9) % MCV 86.0 (79.4-94.8) fL MCH 27.0 (25.6-32.2) pg MCHC 31.4 L (32.2-35.5) g/dL RDW 17.2 H (11.7-14.4) % Plt Count 183 (182-369) x10^3/uL MPV 11.0 (9.4-12.3) fL Segmented Neutrophils 87 H (34.0-71.1) % Lymphocytes (Manual) 9 L (19.3-51.7) % Monocytes (Manual) 4 L (4.7-12.5) % Platelet Estimate NORMAL (NORMAL) RBC Morphology NORMAL PT (9.4-12.5) SECONDS INR (0.8-3.0) Sodium (135-145) mmol/L Potassium (3.5-5.1) mmol/L Chloride (98-107) mmol/L Carbon Dioxide (22-30) mmol/L Anion Gap (5-15) MEQ/L BUN (7-17) mg/dL Creatinine (0.52-1.04) mg/dL Estimated GFR ML/MIN Glucose (74-106) mg/dL POC Glucometer 136 H 226 H (74 to 106) mg/dL Calcium (8.4-10.2) mg/dL Total Bilirubin (0.2-1.3) mg/dL AST (14-36) U/L ALT (0-35) U/L Alkaline Phosphatase (38-126) U/L Serum Total Protein (6.3-8.2) g/dL Albumin (3.5-5.0) g/dL 02/22/24 02/22/24 02/22/24 Range/Units 05:23 05:23 07:09 WBC (3.98-10.04) x10^3/uL RBC (3.93-5.22) x10^6/uL Hgb (11.2-15.7) g/dL Hct (34.1-44.9) % MCV (79.4-94.8) fL MCH (25.6-32.2) pg MCHC (32.2-35.5) g/dL RDW (11.7-14.4) % Plt Count (182-369) x10^3/uL MPV (9.4-12.3) fL Segmented Neutrophils (34.0-71.1) % Lymphocytes (Manual) (19.3-51.7) % Monocytes (Manual) (4.7-12.5) % Platelet Estimate (NORMAL) RBC Morphology PT 13.5 H (9.4-12.5) SECONDS INR 1.26 D (0.8-3.0) Sodium 135 (135-145) mmol/L Potassium 3.6 (3.5-5.1) mmol/L Chloride 99 (98-107) mmol/L Carbon Dioxide 34 H (22-30) mmol/L Anion Gap 5.0 (5-15) MEQ/L BUN 24 H (7-17) mg/dL Creatinine 0.80 (0.52-1.04) mg/dL Estimated GFR 77.8 ML/MIN Glucose 145 H (74-106) mg/dL POC Glucometer 149 H (74 to 106) mg/dL Calcium 8.3 L (8.4-10.2) mg/dL Total Bilirubin 0.60 (0.2-1.3) mg/dL AST 24 (14-36) U/L ALT 24 (0-35) U/L Alkaline Phosphatase 56 (38-126) U/L Serum Total Protein 6.1 L (6.3-8.2) g/dL Albumin 3.5 (3.5-5.0) g/dL 02/22/24 Range/Units 11:09 WBC (3.98-10.04) x10^3/uL RBC (3.93-5.22) x10^6/uL Hgb (11.2-15.7) g/dL Hct (34.1-44.9) % MCV (79.4-94.8) fL MCH (25.6-32.2) pg MCHC (32.2-35.5) g/dL RDW (11.7-14.4) % Plt Count (182-369) x10^3/uL MPV (9.4-12.3) fL Segmented Neutrophils (34.0-71.1) % Lymphocytes (Manual) (19.3-51.7) % Monocytes (Manual) (4.7-12.5) % Platelet Estimate (NORMAL) RBC Morphology PT (9.4-12.5) SECONDS INR (0.8-3.0) Sodium (135-145) mmol/L Potassium (3.5-5.1) mmol/L Chloride (98-107) mmol/L Carbon Dioxide (22-30) mmol/L Anion Gap (5-15) MEQ/L BUN (7-17) mg/dL Creatinine (0.52-1.04) mg/dL Estimated GFR ML/MIN Glucose (74-106) mg/dL POC Glucometer 195 H (74 to 106) mg/dL Calcium (8.4-10.2) mg/dL Total Bilirubin (0.2-1.3) mg/dL AST (14-36) U/L ALT (0-35) U/L Alkaline Phosphatase (38-126) U/L Serum Total Protein (6.3-8.2) g/dL Albumin (3.5-5.0) g/dL Micro Results-Entire Visit: Microbiology 02/20/24 05:08 Blood Culture - Preliminary Blood 02/20/24 04:39 Blood Culture - Preliminary Blood Accuchecks Date 02/22/24 Date 02/22/24 - Procedures and Test Procedures and Tests throughout Hospitalization: Therapy Orders & Screens 02/20/24 04:11 Respiratory Therapy Assessment DAILY Comment: 02/20/24 10:08 Respiratory Therapy Consult ONCE Comment: Reason For Exam: Diagnosis: COPD EXACERBATION, BACK PAIN 02/20/24 11:44 Respiratory Therapy Assessment DAILY Comment: Diagnosis: COPD EXACERBATION, BACK PAIN 02/21/24 00:11 Oxygen Nasal Cannula 2 lpm Comment: Diagnosis: COPD EXACERBATION, BACK PAIN 02/21/24 09:30 Qualify for Home Oxygen TODAY Comment: Diagnosis: COPD EXACERBATION, BACK PAIN 02/21/24 10:14 Incentive Spirometry ROUTINE Comment: Diagnosis: COPD EXACERBATION, BACK PAIN 02/22/24 04:46 Flutter Therapy UD Comment: Diagnosis: COPD EXACERBATION, BACK PAIN Discharge Exam General Appearance: no apparent distress Neurologic Exam: alert, 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, cooperative Eye Exam: PERRL Ears, Nose, Throat Exam: normal ENT inspection Neck Exam: normal inspection Respiratory Exam: wheezing Cardiovascular Exam: regular rate/rhythm, normal heart sounds Gastrointestinal/Abdomen Exam: soft, normal bowel sounds Pelvic Exam: deferred Rectal Exam: deferred Back Exam: normal inspection Extremity Exam: normal inspection Skin Exam: normal color Final Diagnosis/Problem List - Final Discharge Diagnosis/Problem (1) COPD exacerbation Current Visit: Yes Status: Acute Code(s): J44.1 - CHRONIC OBSTRUCTIVE PULMONARY DISEASE W (ACUTE) EXACERBATION (2) Back pain Current Visit: Yes Status: Resolved Code(s): M54.9 - DORSALGIA, UNSPECIFIED (3) History of atrial fibrillation Current Visit: Yes Status: Chronic Code(s): Z86.79 - PERSONAL HISTORY OF OTHER DISEASES OF THE CIRCULATORY SYSTEM (4) Supratherapeutic INR Current Visit: Yes Status: Resolved Code(s): R79.1 - ABNORMAL COAGULATION PROFILE (5) Hx of cancer of lung Current Visit: No Status: Chronic Code(s): Z85.118 - PERSONAL HISTORY OF MALIGNANT NEOPLASM OF BRONCHUS AND LUNG (6) HTN (hypertension) Current Visit: No Status: Chronic Code(s): I10 - ESSENTIAL (PRIMARY) HYPERTENSION (7) Obesity, Class III, BMI 40-49.9 (morbid obesity) Current Visit: No Status: Chronic Code(s): E66.01 - MORBID (SEVERE) OBESITY DUE TO EXCESS CALORIES (8) Type 2 diabetes mellitus Current Visit: No Status: Chronic - Discharge Disposition: Home, Self-Care Condition: Stable Prescriptions: New Methylprednisolone Packet [Medrol Dosepack] 4 mg PO UD #30 packet Doxycycline Hyclate 100 mg [Vibramycin 100 MG] 100 mg PO BID 10 Days #20 tab Continue Zolpidem Tartrate [Ambien] 10 mg PO HS Budesonide/Glycopyr/Formoterol [Breztri Aerosphere Inhaler] 2 puffs IH BID Fexofenadine HCl [Sonia Allergy] 180 mg PO HS PRN PRN PRN Reason: Allergies Metoprolol Succinate 50 mg PO DAILY Insulin Glargine,Hum.rec.anlog [Lantus] 20 - 23 unit SQ HS Albuterol Common Canister [Ventolin Common Canister] 2 puff IH BID Furosemide [Lasix] 20 mg PO DAILY Warfarin Sodium 5 mg PO DAILY Colesevelam HCl 625 mg PO TID Rosuvastatin Calcium [Crestor] 10 mg PO HS Metoprolol Succinate 25 mg Xl* [Toprol-Xl 25MG Tablets] 25 mg PO HS Discontinued predniSONE [Prednisone] 60 mg PO BID Follow up with: [facility] [Primary Care Provider] -
[2024-02-22 12:49] VITALS: PULSE 67; RESP 18; O2SAT 95
== END 2024-02-22 15:05 | disposition home or self-care (01) ==
LOC: ED 04:03 → MED SURG 08:26
PROVIDERS: ADMIT Internal Medicine; ATTEND Internal Medicine
DX: J44.1 Chronic obstructive pulmonary disease with (acute) exacerbation (principal); M54.9 Dorsalgia, unspecified; Z86.79 Personal history of other diseases of the circulatory system; R79.1 Abnormal coagulation profile; Z85.118 Personal history of other malignant neoplasm of bronchus and lung; I10 Essential (primary) hypertension; E66.01 Morbid (severe) obesity due to excess calories; E11.9 Type 2 diabetes mellitus without complications; Z79.899 Other long term (current) drug therapy; Z79.01 Long term (current) use of anticoagulants
CPT/HCPCS: 0241U; 36415; 71045; 71250; 80053; 81001; 82947; 83036; 83605; 83880; 84484; 85025; 85379; 85610; 85730; 87040; 93005; 93041; 94640; 94667; 94760; 94762; 96365; 96367; 96374; 96375; 99285; 93268; J0696; J1817; J2270; J2405; J2919; J3430; A9270-GY; G0378

== ENCOUNTER 2024-04-02 09:12 | Inpatient (IN) | payer MEDICARE, OTHER ==
--- NOTE | 2024-04-02 09:20 | ERPHSYRPT ---
- History of Present Illness Time Seen by Provider: 04/02/24 09:26 Source: patient Exam Limitations: no limitations Physician History: Patient is a 73-year-old female history of COPD former smoker cardiac pacemaker, diabetes presents to our ED for evaluation of shortness of breath, nonproductive cough and generalized weakness. Patient reports that she awoke with shortness of breath this morning at approximately 4 AM. No trauma. Confirmed fever today in our ED. Patient reports she is nauseous as well. No vomiting no diarrhea no rash. No obvious sick contacts. No chest pain. Patient reports she lives alone. Symptoms are constant. Symptoms are moderate in intensity. No specific worsening improving factors. Patient otherwise feels well. She voices no other complaints or concerns at this time. Portions of this note were created with voice recognition technology. There may be grammatical, spelling, punctuation or sound alike errors Timing/Duration: today Activities at Onset: none Severity of Dyspnea-Max: moderate Severity of Dyspnea-Current: moderate Possible Cause: no prior episodes Modifying Factors: Improves With: activity Associated Symptoms: cough, fever Allergies/Adverse Reactions: clarithromycin [From Biaxin] Allergy (Severe, Verified 04/02/24 09:16) Hives Coconut Allergy (Severe, Verified 04/02/24 09:16) Difficulty Breathing green dye *RETIRED-07/03/12 [Green Dye] Allergy (Mild, Verified 04/02/24 09:16) Swelling swelling ears red dye [Red Dye] Allergy (Mild, Verified 04/02/24 09:16) Swelling ears swell adhesive Allergy (Verified 04/02/24 09:16) Rash cholestyramine Allergy (Verified 04/02/24 09:16) iodine Allergy (Verified 04/02/24 09:16) Wheezing latex Allergy (Verified 04/02/24 09:16) Rash nitrofurantoin [From Macrobid] Allergy (Verified 04/02/24 09:16) levofloxacin [From Levaquin] Adverse Reaction (Mild, Verified 04/02/24 09:16) Joint Aches Home Medications: Zolpidem Tartrate [Ambien] 10 mg PO HS 08/16/15 [History] Budesonide/Glycopyr/Formoterol [Breztri Aerosphere Inhaler] 2 puffs IH BID 09/05/21 [History] Fexofenadine HCl [Sonia Allergy] 180 mg PO HS PRN PRN 01/23/23 [History] Albuterol Common Canister [Ventolin Common Canister] 2 puff IH BID 09/20/23 [History] Insulin Glargine,Hum.rec.anlog [Lantus] 20 - 23 unit SQ HS 09/20/23 [History] Metoprolol Succinate 50 mg PO DAILY 09/20/23 [History] Furosemide [Lasix] 20 mg PO DAILY 11/21/23 [History] Colesevelam HCl 625 mg PO BID 02/18/24 [History] Metoprolol Succinate 25 mg Xl* [Toprol-Xl 25MG Tablets] 25 mg PO HS 02/18/24 [History] Rosuvastatin Calcium [Crestor] 10 mg PO HS 02/18/24 [History] Warfarin Sodium 5 mg PO DAILY 02/18/24 [History] Hx Tetanus, Diphtheria Vaccination/Date Given: Yes Hx Influenza Vaccination/Date Given: Yes Hx Pneumococcal Vaccination/Date Given: Yes Travel Risk - Emerging Infectious Disease Are you exhibiting symptoms associated with any current EIDs: Yes Symptoms: Cough: New Onset, Shortness of Breath - Review of Systems Constitutional: No Symptoms, No Fever, No Chills Eyes: No Symptoms Ears, Nose, & Throat: No Symptoms Respiratory: Cough, Dyspnea on Exertion (WILSON), No Dyspnea Cardiac: No Chest Pain, No Edema, No Syncope Abdominal/Gastrointestinal: Nausea, No Abdominal Pain, No Vomiting, No Diarrhea Genitourinary Symptoms: No Dysuria Musculoskeletal: No Back Pain, No Neck Pain Skin: No Rash Neurological: No Dizziness, No Focal Weakness, No Sensory Changes Psychological: No Symptoms Endocrine: No Symptoms All Other Systems: Reviewed and Negative - Past Medical History Pertinent Past Medical History: Yes Neurological History: No Pertinent History ENT History: Cataracts Cardiac History: Arrhythmia, Other Respiratory History: COPD, Other Endocrine Medical History: Diabetes Type II, Other Musculoskeletal History: Osteoarthritis GI Medical History: Diverticulitis, Gallbladder Disease, Pancreatitis History: No Pertinent History Psycho-Social History: No Pertinent History Female Reproductive Disorders: No Pertinent History Other Medical History: bruised liver, kidney disease in the past, seasonal allergies, lung ca, MRCP, Pancreas cyst - Past Surgical History Past Surgical History: Yes Neuro Surgical History: No Pertinent History Cardiac: Pacemaker Respiratory: Lobectomy Gastrointestinal: Appendectomy, Cholecystectomy, Hernia Repair Genitourinary: No Pertinent History Musculoskeletal: No Pertinent History, Joint Replacement, Orthopedic Surgery Female Surgical History: Hysterectomy, Other Other Surgical History: tonsilectomy, carpal tunnel, trigger finger X3, BLADDER SLING, colorectal, SI fusion, left wedge resection to lungs July 16, 2020, PACEMAKER 2022 - Social History Smoking Status: Former smoker How long have you smoked: 20 years Exposure to second hand smoke: No Drug Use: none Patient Lives Alone: Yes - Social Determinants of Health Will the patient participate in the screening: Yes Do you worry about a steady place to live?: No In the past 12 months,have you had to go without utilities?: No Transportation Issues: No Has anyone in your support network made you feel unsafe?: No Have you or anyone in your house had to go without enough: No - Nursing Vital Signs Nursing Vital Signs: Initial Vital Signs Temperature 100.3 F 04/02/24 09:24 Pulse Rate 67 04/02/24 09:24 Respiratory Rate 25 H 04/02/24 09:24 Blood Pressure 166/78 04/02/24 09:24 O2 Sat by Pulse Oximetry 98 04/02/24 09:24 Pain Scale Pain Intensity 6 - Physical Exam General Appearance: no apparent distress, alert Eye Exam: PERRL/EOMI, eyes nml inspection Ears, Nose, Throat Exam: hearing grossly normal, normal ENT inspection Neck Exam: normal inspection, supple Respiratory Exam: diminished breath sounds, rhonchi, wheezing Cardiovascular/Chest Exam: normal heart sounds, regular rate/rhythm Abdominal/Gastrointestinal Exam: soft, No tenderness, No distention, No mass Extremity Exam: non-tender, normal range of motion, normal inspection, no calf t enderness, no pedal edema Neurologic Exam: alert, 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, cooperative, systems tester II-XII nml as tested, sensation nml, No motor deficits Skin Exam: normal color, warm, No dry SpO2 Interpretation: normal O2 Delivery: Room Air - Course Nursing assessment & vital signs reviewed: Yes EKG Interpreted by Me: RATE (61), NORMAL AXIS, NORMAL INTERVALS, NORMAL QRS, Other (Atrial paced complexes.) - Radiology Exams Chest X-ray Interpretation: Teleradiologist Report (No acute findings) Ordered Tests: Active Orders 24 hr Category Date Time Status Metal Fabrication Supervisor STAT Care 04/02/24 09:17 Active EKG-ER Only STAT Care 04/02/24 09:16 Active IV Insertion STAT Care 04/02/24 09:16 Active Pulse Oximetry (ED) STAT Care 04/02/24 09:16 Active CHEST 1 VIEW (PORTABLE) Stat Exams 04/02/24 09:17 Completed BLOOD CULTURE Stat Lab 04/02/24 09:56 Received CBC W DIFF Stat Lab 04/02/24 09:40 Completed CMP Stat Lab 04/02/24 09:40 Completed Lactic Acid Stat Lab 04/02/24 09:44 Completed NT PRO BNPII Stat Lab 04/02/24 09:40 Completed PROTIME WITH INR Stat Lab 04/02/24 09:56 Completed PTT Stat Lab 04/02/24 09:56 Completed TROPONIN Q4H Lab 04/02/24 09:40 Completed TROPONIN Q4H Lab 04/02/24 13:30 Ordered TROPONIN Q4H Lab 04/02/24 17:30 Ordered UA W/RFX UR CULTURE Stat Lab 04/02/24 09:17 Ordered Transfer Order Routine Transfer 04/02/24 Ordered Medication Summary Discontinued Medications Generic Name Dose Route Start Last Admin Trade Name Freq PRN Reason Stop Dose Admin 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 975 mg 04/02/24 11:05 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 325 Mg Tablet PO 04/02/24 11:06 STAT ONE Albuterol/Ipratropium 3 ml 04/02/24 09:22 04/02/24 09:39 Ipratropium/Albuterol Sulfate 3 Ml Ampul.Neb IH 04/02/24 09:23 3 ml STAT ONE Administration Albuterol/Ipratropium Confirm 04/02/24 09:37 Ipratropium/Albuterol Sulfate 3 Ml Ampul.Neb Administered 04/02/24 09:38 Dose 3 ml IH .STK-MED ONE Methylprednisolone Sodium 0 mg 04/02/24 09:22 04/02/24 10:01 Succinate 125 mg/ Sterile IV 04/02/24 09:23 125 mg Water 2 ml STAT ONE Administration Ceftriaxone Sodium 2 gm in 100 mls @ 200 mls/hr 04/02/24 09:16 04/02/24 10:58 Rocephin 2 Gm/100 Ml Nacl IV 04/02/24 09:45 Infused STAT ONE Infusion Azithromycin 500 mg in 250 mls @ 250 mls/hr 04/02/24 09:16 Zithromax 500 Mg/ 250 Ml Nacl Premix IV 04/02/24 10:15 STAT STA Ceftriaxone Sodium Confirm 04/02/24 10:00 Rocephin 2 Gm/100 Ml Nacl Administered 04/02/24 10:01 Dose 2 gm in 100 mls @ ud IV .STK-MED ONE Methylprednisolone Sodium Succinate Confirm 04/02/24 10:00 Methylprednis Sod Succ 125 Mg/2 Ml Vial Administered 04/02/24 10:01 Dose 125 mg .ROUTE .STK-MED ONE Ondansetron HCl 4 mg 04/02/24 10:05 04/02/24 10:13 Ondansetron Hcl 4 Mg/2 Ml Vial IV 04/02/24 10:06 4 mg STAT ONE Administration Ondansetron HCl Confirm 04/02/24 10:06 Ondansetron Hcl 4 Mg/2 Ml Vial Administered 04/02/24 10:07 Dose 4 mg .ROUTE .STK-MED ONE Sterile Water Confirm 04/02/24 10:00 Water For Injection,Sterile 10 Ml Vial Administered 04/02/24 10:01 Dose 10 ml IJ .STK-MED ONE Lab/Rad Data: Laboratory Result Diagrams 04/02/24 09:40 04/02/24 09:40 Laboratory Results 04/02/24 04/02/24 04/02/24 Range/Units 09:58 09:56 09:44 WBC (3.98-10.04) x10^3/uL RBC (3.93-5.22) x10^6/uL Hgb (11.2-15.7) g/dL Hct (34.1-44.9) % MCV (79.4-94.8) fL MCH (25.6-32.2) pg MCHC (32.2-35.5) g/dL RDW (11.7-14.4) % Plt Count (182-369) x10^3/uL MPV (9.4-12.3) fL Gran % (34.0-71.1) % Immature Gran % (Auto) (0.001-0.429) % Nucleat RBC Rel Count (0.00-0.2) % Eos # (Auto) (0.04-0.36) x10^3/uL Immature Gran # (Auto) (0.001-0.031) x10^3u/L Absolute Lymphs (auto) (1.18-3.74) x10^3/uL Absolute Monos (auto) (0.24-0.86) x10^3/uL Absolute Nucleated RBC (0.00-0.012) x10^3u/L Lymphocytes % (19.3-51.7) % Monocytes % (4.7-12.5) % Eosinophils % (0.7-5.8) % Basophils % (0.1-1.2) % Absolute Granulocytes (1.56-6.13) x10^3/uL Basophils # (0.01-0.08) x10^3/uL PT 22.9 H (9.4-12.5) SECONDS INR 2.21 (0.8-3.0) APTT 30.6 (25.1-36.5) SECONDS Sodium (135-145) mmol/L Potassium (3.5-5.1) mmol/L Chloride (98-107) mmol/L Carbon Dioxide (22-30) mmol/L Anion Gap (5-15) MEQ/L BUN (7-17) mg/dL Creatinine (0.52-1.04) mg/dL Estimated GFR ML/MIN Glucose (74-106) mg/dL Lactic Acid 1.8 (0.4-2.0) Calcium (8.4-10.2) mg/dL Total Bilirubin (0.2-1.3) mg/dL AST (14-36) U/L ALT (0-35) U/L Alkaline Phosphatase (38-126) U/L Troponin I (0.000-0.033) ng/mL NT-Pro-B Natriuret Pep (<300) pg/mL Serum Total Protein (6.3-8.2) g/dL Albumin (3.5-5.0) g/dL Influenza Type A Ag POSITIVE A (NEGATIVE) Influenza Type B Ag NEGATIVE (NEGATIVE) RSV (PCR) NEGATIVE (NEGATIVE) SARS-CoV-2 (PCR) NEGATIVE (NEGATIVE) Slides for Path Review 04/02/24 04/02/24 04/02/24 Range/Units 09:40 09:40 09:40 WBC 8.0 (3.98-10.04) x10^3/uL RBC 4.16 (3.93-5.22) x10^6/uL Hgb 11.8 (11.2-15.7) g/dL Hct 36.5 (34.1-44.9) % MCV 87.7 (79.4-94.8) fL MCH 28.4 (25.6-32.2) pg MCHC 32.3 (32.2-35.5) g/dL RDW 16.0 H (11.7-14.4) % Plt Count 185 (182-369) x10^3/uL MPV 11.9 (9.4-12.3) fL Gran % 85.6 H (34.0-71.1) % Immature Gran % (Auto) 0.2 (0.001-0.429) % Nucleat RBC Rel Count 0.0 (0.00-0.2) % Eos # (Auto) 0.05 (0.04-0.36) x10^3/uL Immature Gran # (Auto) 0.02 (0.001-0.031) x10^3u/L Absolute Lymphs (auto) 0.56 L (1.18-3.74) x10^3/uL Absolute Monos (auto) 0.50 (0.24-0.86) x10^3/uL Absolute Nucleated RBC 0.00 (0.00-0.012) x10^3u/L Lymphocytes % 7.0 L (19.3-51.7) % Monocytes % 6.2 (4.7-12.5) % Eosinophils % 0.6 L (0.7-5.8) % Basophils % 0.4 (0.1-1.2) % Absolute Granulocytes 6.86 H (1.56-6.13) x10^3/uL Basophils # 0.03 (0.01-0.08) x10^3/uL PT (9.4-12.5) SECONDS INR (0.8-3.0) APTT (25.1-36.5) SECONDS Sodium 139 (135-145) mmol/L Potassium 3.8 (3.5-5.1) mmol/L Chloride 108 H (98-107) mmol/L Carbon Dioxide 24 (22-30) mmol/L Anion Gap 10.6 (5-15) MEQ/L BUN 18 H (7-17) mg/dL Creatinine 0.75 (0.52-1.04) mg/dL Estimated GFR 84.0 ML/MIN Glucose 101 (74-106) mg/dL Lactic Acid (0.4-2.0) Calcium 8.7 (8.4-10.2) mg/dL Total Bilirubin 0.90 (0.2-1.3) mg/dL AST 29 (14-36) U/L ALT 22 (0-35) U/L Alkaline Phosphatase 62 (38-126) U/L Troponin I < 0.012 (0.000-0.033) ng/mL NT-Pro-B Natriuret Pep 905 (<300) pg/mL Serum Total Protein 6.0 L (6.3-8.2) g/dL Albumin 3.9 (3.5-5.0) g/dL Influenza Type A Ag (NEGATIVE) Influenza Type B Ag (NEGATIVE) RSV (PCR) (NEGATIVE) SARS-CoV-2 (PCR) (NEGATIVE) Slides for Path Review YES - Progress Progress: improved Air Movement: good Progress Note: 73-year-old female lives alone history of COPD diabetes presents to our ED for evaluation of cough shortness of breath. Patient observed to be febrile. Patient reports she feels weak. Physical exam reveals lung sounds are di minished rhonchi with some scattered wheezing. Patient received Solu-Medrol blood cultures obtained. Antibiotics initiated. DuoNeb treatment rendered. Patient is influenza A positive as well. Patient reassessed. Patient states she feels a little better however is not ready for discharge. Wheezing resolved. Breath sounds are still coarse. Patient still coughing. O2 sat upon arrival was 94%. At rest patient sats dropped down to 90. Patient started on 2 L nasal cannula. Patient will be admitted for further evaluation and treatment. Plan of care discussed with patient. She agrees to admission at [facility] for further evaluation and treatment. Case discussed with hospitalist at 11:02 AM. She accepts admission to observation. Portions of this note were created with voice recognition technology. There may be grammatical, spelling, punctuation or sound alike errors Complexity of problem addressed is moderate acute complicated no critical care time. Complex of data reviewed and analyzed is extensive. Test ordered chest reviewed results analyzed and correlated clinically with history and physical exam. Risk of complication and or risk of morbidity/mortality of patient management is high. Patient requires hospitalization for further evaluation and treatment. Vital stable. Time spent to admit patient approximately 15 minutes. Plan of care established for shared decision making. No social determinants of health present to impede follow-up. Portions of this note were created with voice recognition technology. There may be grammatical, spelling, punctuation or sound alike errors 04/02/24 11:07 Blood Culture(s) Obtained: Yes Antibiotics given: Yes Counseled pt/family regarding: lab results, diagnosis, rad results - Departure Departure Disposition: Observation Clinical Impression: Cough, Fever, Shortness of breath, Generalized weakness, Influenza A, COPD exacerbation, Hypoxia, Nausea Condition: Stable Critical Care Time: No Referrals: SKYLER CEJA TAPPING MACHINE OPERATOR [Primary Care Provider] - Follow up/PCP as directed Instructions: Chronic Obstructive Pulmonary Disease
[2024-04-02] MEDS ORDERED: DUONEB 0.5-3 MG/3 ml Neb IH ONE (09:37)
[2024-04-02] MEDS: DUONEB 0.5-3 MG/3 ml Neb IH ONE (09:39)
--- NOTE | 2024-04-02 09:42 | XRAY ---
Indication: Cough. Fever. Comparison: February 20, 2024 Portable chest is slightly rotated with grossly stable right apical/left mid lung suture material. No focal infiltrate, consolidation, or large effusion. Heart not enlarged again with left pacemaker and small hilar calcified nodes. Bony thorax intact again with osteopenia and mild degenerative changes. Impression: Again nonacute chest with chronic features.
[2024-04-02] MEDS ORDERED: Sterile H2O 10 ml IJ ONE (10:00)
[2024-04-02] MEDS ORDERED: solu-MEDROL ONE (10:00)
[2024-04-02] MEDS ORDERED: ROCEPHIN 2 GM/100 ML NACL 2 GM/100 ML IVPB IV ONE (10:00)
[2024-04-02] MEDS: ROCEPHIN 2 GM/100 ML NACL 2 GM/100 ML IVPB IV ONE (10:01)
[2024-04-02] MEDS: solu-MEDROL 125 MG, Sterile H2O 10 ml 2 ML IV ONE (10:01)
[2024-04-02 10:05] LABS: Absolute Neutrophil Ct (ANC) 6.86 x10^3/uL (1.56-6.13); BASOPHIL % 0.4 % (0.1-1.2); Basophil (Absolute #) 0.03 x10^3/uL (0.01-0.08); Eosinophil % 0.6 % (0.7-5.8); Eosinophil (Absolute #) 0.05 x10^3/uL (0.04-0.36); Hematocrit 36.5 % (34.1-44.9); Hemoglobin 11.8 g/dL (11.2-15.7); IMMATURE GRAN # 0.02 x10^3u/L (0.001-0.031); IMMATURE GRAN % 0.2 % (0.001-0.429); Lymphocyte (Absolute #) 0.56 x10^3/uL (1.18-3.74); Mean Cell Volume 87.7 fL (79.4-94.8); Mean Corpuscular Hemoglobin 28.4 pg (25.6-32.2); Mean Corpuscular Hgb Concent. 32.3 g/dL (32.2-35.5); Mean Platelet Volume 11.9 fL (9.4-12.3); Monocytes % 6.2 % (4.7-12.5); Neutrophil % 85.6 % (34.0-71.1); Platelet Count 185 x10^3/uL (182-369); Red Blood Count 4.16 x10^6/uL (3.93-5.22)
[2024-04-02] MEDS ORDERED: Zofran 4 MG/2 ML VIAL ONE (10:06)
[2024-04-02] MEDS: Zofran 4 MG/2 ML VIAL IV ONE (10:13)
[2024-04-02 10:24] LABS: INR 2.21 (0.8-3.0); PROTIME 22.9 SECONDS (9.4-12.5); PTT 30.6 SECONDS (25.1-36.5)
[2024-04-02 10:31] LABS: ALBUMIN 3.9 g/dL (3.5-5.0); ANION GAP 10.6 MEQ/L (5-15); BILIRUBIN,TOTAL 0.9 mg/dL (0.2-1.3); Calcium 8.7 mg/dL (8.4-10.2); Creatinine 1 0.75 mg/dL (0.52-1.04); Potassium 3.8 mmol/L (3.5-5.1)
[2024-04-02 10:43] LABS: INFLUENZA B NEGATIVE (NEGATIVE); RESPIRATORY SYNCTIAL VIRUS NEGATIVE (NEGATIVE); SARS-CoV-2 Xpert Express NEGATIVE (NEGATIVE)
[2024-04-02 10:46] LABS: INFLUENZA A POSITIVE (NEGATIVE)
[2024-04-02 10:54] LABS: Slide Review 1 YES
[2024-04-02] MEDS ORDERED: Zithromax 500 MG/ 250 ML NaCl Premix 500 MG/250 ML IVPB IV ONE (11:28)
[2024-04-02] MEDS: Zithromax 500 MG/ 250 ML NaCl Premix 500 MG/250 ML IVPB IV STA (11:30)
[2024-04-02] MEDS ORDERED: TYLENOL 325 MG ONE (11:34)
[2024-04-02] MEDS: TYLENOL 325 MG PO ONE (11:34)
--- NOTE | 2024-04-02 12:29 | PCM.HP ---
<STEPHANY CIFUENTES - Last Filed: 04/02/24 13:52> History of Present Illness - Chief Complaint Chief Complaint: SOB Date: 04/02/24 History of Present Illness: is a 73 year old female with PMHX of cataracts, arrthmia, COPD, type II DM, OA, Diverticulitis, Pancreatitis, depression, pacemaker, lung cancer with wedge resection in 2020 who presented to ED 04/02/24 with complaints of shortness of breath, nausea with dry heaves, fever, cough, headache, and body aches. Symptoms began this morning with progressive shortness of breath. Cough with clear/yellow sputum. TMax 102.6 at home. 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 Denies cp, abdominal pain, MORA, dizziness, N/V/D. Upon arrival to ED patient febrile with temp of 100.3, tachypneic, and hypertensive. CXR with no acute cardiopulmonary findings. Lab findings unremarkable with the exception of FLUA +. Patient given Ceftriaxone, solumedrol, and azithromycin in ED. - Review of Systems Constitutional: Fever, Weakness Eyes: No Symptoms Ears, Nose, & Throat: Nose Congestion Respiratory: Cough, Short Of Breath, Wheezing Cardiac: No Symptoms Abdominal/Gastrointestinal: Abdominal Pain, Nausea Genitourinary Symptoms: No Symptoms Musculoskeletal: Other (body aches) Skin: No Symptoms Neurological: No Symptoms Psychological: No Symptoms Endocrine: No Symptoms Hematologic/Lymphatic: No Symptoms Immunological/Allergic: No Symptoms Medications & Allergies Home Medications: Home Medication List Zolpidem Tartrate [Ambien] 10 mg PO HS 08/16/15 [History Confirmed 04/02/24] Budesonide/Glycopyr/Formoterol [Breztri Aerosphere Inhaler] 2 puffs IH BID 09/05/21 [History Confirmed 04/02/24] Fexofenadine HCl [Sonia Allergy] 180 mg PO HS PRN PRN 01/23/23 [History Confirmed 04/02/24] Albuterol Common Canister [Ventolin Common Canister] 2 puff IH BID 09/20/23 [History Confirmed 04/02/24] Insulin Glargine,Hum.rec.anlog [Lantus] 20 unit SQ HS 09/20/23 [History Confirmed 04/02/24] Metoprolol Succinate 50 mg PO DAILY 09/20/23 [History Confirmed 04/02/24] Furosemide [Lasix] 20 mg PO DAILY 11/21/23 [History Confirmed 04/02/24] Colesevelam HCl 625 mg PO BID 02/18/24 [History Confirmed 04/02/24] Metoprolol Succinate 25 mg Xl* [Toprol-Xl 25MG Tablets] 25 mg PO HS 02/18/24 [History Confirmed 04/02/24] Rosuvastatin Calcium [Crestor] 10 mg PO HS 02/18/24 [History Confirmed 04/02/24] Warfarin Sodium 5 mg PO UD 02/18/24 [History Confirmed 04/02/24] Warfarin Sodium 2.5 mg PO UD #90 tablet 03/19/24 [Rx Confirmed 04/02/24] Cbd Gummy 1 tab PO HS 04/02/24 [History Confirmed 04/02/24] Prednisone 5 mg [Deltasone 5 mg] 2.5 mg PO DAILY 04/02/24 [History Confirmed 04/02/24] Allergies/Adverse Reactions: Allergies Allergy/AdvReac Type Severity Reaction Status Date / Time clarithromycin [From Biaxin] Allergy Severe Hives Verified 04/02/24 09:16 Coconut Allergy Severe Difficulty Verified 04/02/24 09:16 Breathing green dye *RETIRED-07/03/12 Allergy Mild Swelling Verified 04/02/24 09:16 [Green Dye] red dye [Red Dye] Allergy Mild Swelling Verified 04/02/24 09:16 adhesive Allergy Rash Verified 04/02/24 09:16 cholestyramine Allergy Verified 04/02/24 09:16 iodine Allergy Wheezing Verified 04/02/24 09:16 latex Allergy Rash Verified 04/02/24 09:16 nitrofurantoin Allergy Verified 04/02/24 09:16 [From Macrobid] levofloxacin [From Levaquin] AdvReac Mild Joint Aches Verified 04/02/24 09:16 - Past Medical History Past Medical History: Yes Neurological History: No Pertinent History ENT History: Cataracts Cardiac History: Arrhythmia, Other Respiratory History: COPD, Other Endocrine Medical History: Diabetes Type II, Other Musculoskelatal History: Osteoarthritis GI Medical History: Diverticulitis, Gallbladder Disease, Pancreatitis History: No Pertinent History Pyscho-Social History: No Pertinent History Reproductive Disorders: No Pertinent History Comment: bruised liver, kidney disease in the past, seasonal allergies, lung ca, MRCP, Pancreas cyst - Past Surgical History Past Surgical History: Yes Neuro Surgical History: No Pertinent History Cardiac History: Pacemaker Respiratory Surgery: Lobectomy GI Surgical History: Appendectomy, Cholecystectomy, Hernia Repair Genitourinary Surgical Hx: No Pertinent History Musculskeletal Surgical Hx: No Pertinent History, Joint Replacement, Orthopedic Surgery Female Surgical History: Hysterectomy, Other Other Surgical History: tonsilectomy, carpal tunnel, trigger finger X3, BLADDER SLING, colorectal, SI fusion, left wedge resection to lungs July 16, 2020, PACEMAKER 2022 - Social History Smoking Status: Former smoker How long have you smoked: 20 years Exposure to second hand smoke: No Alcohol: None Drug Use: none - Social Determinants of Health Will the patient participate in the screening: Yes Do you worry about a steady place to live?: No Do you have any problems with any of the following?: No known problems In the past 12 months,have you had to go without utilities?: No Have you or anyone in your house had to go without enough: No Transportation Issues: No Has anyone in your support network made you feel unsafe?: No Does the patient want assistance with any of the above?: No - Physical Exam Vital Signs: Vital Signs - 24 hr Temp Pulse Resp BP BP Pulse Ox 04/02/24 12:01 63 23 102/46 98 04/02/24 11:30 66 24 111/83 99 04/02/24 11:00 98.9 F 67 24 117/73 89 L 04/02/24 10:01 68 25 H 131/50 95 04/02/24 09:43 64 18 94 L 04/02/24 09:30 73 15 159/95 95 04/02/24 09:24 100.3 F 68 15 166/78 166/78 94 L General Appearance: no apparent distress Neurologic Exam: alert, 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, cooperative Eye Exam: PERRL/EOMI Ears, Nose, Throat Exam: normal ENT inspection Neck Exam: normal inspection Respiratory Exam: wheezing Cardiovascular Exam: regular rate/rhythm, normal heart sounds Gastrointestinal/Abdomen Exam: soft, normal bowel sounds Pelvic Exam: not done Rectal Exam: deferred Back Exam: normal inspection Extremity Exam: swelling (ble edema +2) Skin Exam: normal color Results - Labs Lab/Micro Results: Lab Results-Last 24 Hours 04/02/24 04/02/24 04/02/24 Range/Units 09:40 09:40 09:40 WBC 8.0 (3.98-10.04) x10^3/uL RBC 4.16 (3.93-5.22) x10^6/uL Hgb 11.8 (11.2-15.7) g/dL Hct 36.5 (34.1-44.9) % MCV 87.7 (79.4-94.8) fL MCH 28.4 (25.6-32.2) pg MCHC 32.3 (32.2-35.5) g/dL RDW 16.0 H (11.7-14.4) % Plt Count 185 (182-369) x10^3/uL MPV 11.9 (9.4-12.3) fL Gran % 85.6 H (34.0-71.1) % Immature Gran % (Auto) 0.2 (0.001-0.429) % Nucleat RBC Rel Count 0.0 (0.00-0.2) % Eos # (Auto) 0.05 (0.04-0.36) x10^3/uL Immature Gran # (Auto) 0.02 (0.001-0.031) x10^3u/L Absolute Lymphs (auto) 0.56 L (1.18-3.74) x10^3/uL Absolute Monos (auto) 0.50 (0.24-0.86) x10^3/uL Absolute Nucleated RBC 0.00 (0.00-0.012) x10^3u/L Lymphocytes % 7.0 L (19.3-51.7) % Monocytes % 6.2 (4.7-12.5) % Eosinophils % 0.6 L (0.7-5.8) % Basophils % 0.4 (0.1-1.2) % Absolute Granulocytes 6.86 H (1.56-6.13) x10^3/uL Basophils # 0.03 (0.01-0.08) x10^3/uL PT (9.4-12.5) SECONDS INR (0.8-3.0) APTT (25.1-36.5) SECONDS Sodium 139 (135-145) mmol/L Potassium 3.8 (3.5-5.1) mmol/L Chloride 108 H (98-107) mmol/L Carbon Dioxide 24 (22-30) mmol/L Anion Gap 10.6 (5-15) MEQ/L BUN 18 H (7-17) mg/dL Creatinine 0.75 (0.52-1.04) mg/dL Estimated GFR 84.0 ML/MIN Glucose 101 (74-106) mg/dL Lactic Acid (0.4-2.0) Calcium 8.7 (8.4-10.2) mg/dL Total Bilirubin 0.90 (0.2-1.3) mg/dL AST 29 (14-36) U/L ALT 22 (0-35) U/L Alkaline Phosphatase 62 (38-126) U/L Troponin I < 0.012 (0.000-0.033) ng/mL NT-Pro-B Natriuret Pep 905 (<300) pg/mL Serum Total Protein 6.0 L (6.3-8.2) g/dL Albumin 3.9 (3.5-5.0) g/dL Influenza Type A Ag (NEGATIVE) Influenza Type B Ag (NEGATIVE) RSV (PCR) (NEGATIVE) SARS-CoV-2 (PCR) (NEGATIVE) Slides for Path Review YES 04/02/24 04/02/24 04/02/24 Range/Units 09:44 09:56 09:58 WBC (3.98-10.04) x10^3/uL RBC (3.93-5.22) x10^6/uL Hgb (11.2-15.7) g/dL Hct (34.1-44.9) % MCV (79.4-94.8) fL MCH (25.6-32.2) pg MCHC (32.2-35.5) g/dL RDW (11.7-14.4) % Plt Count (182-369) x10^3/uL MPV (9.4-12.3) fL Gran % (34.0-71.1) % Immature Gran % (Auto) (0.001-0.429) % Nucleat RBC Rel Count (0.00-0.2) % Eos # (Auto) (0.04-0.36) x10^3/uL Immature Gran # (Auto) (0.001-0.031) x10^3u/L Absolute Lymphs (auto) (1.18-3.74) x10^3/uL Absolute Monos (auto) (0.24-0.86) x10^3/uL Absolute Nucleated RBC (0.00-0.012) x10^3u/L Lymphocytes % (19.3-51.7) % Monocytes % (4.7-12.5) % Eosinophils % (0.7-5.8) % Basophils % (0.1-1.2) % Absolute Granulocytes (1.56-6.13) x10^3/uL Basophils # (0.01-0.08) x10^3/uL PT 22.9 H (9.4-12.5) SECONDS INR 2.21 (0.8-3.0) APTT 30.6 (25.1-36.5) SECONDS Sodium (135-145) mmol/L Potassium (3.5-5.1) mmol/L Chloride (98-107) mmol/L Carbon Dioxide (22-30) mmol/L Anion Gap (5-15) MEQ/L BUN (7-17) mg/dL Creatinine (0.52-1.04) mg/dL Estimated GFR ML/MIN Glucose (74-106) mg/dL Lactic Acid 1.8 (0.4-2.0) Calcium (8.4-10.2) mg/dL Total Bilirubin (0.2-1.3) mg/dL AST (14-36) U/L ALT (0-35) U/L Alkaline Phosphatase (38-126) U/L Troponin I (0.000-0.033) ng/mL NT-Pro-B Natriuret Pep (<300) pg/mL Serum Total Protein (6.3-8.2) g/dL Albumin (3.5-5.0) g/dL Influenza Type A Ag POSITIVE A (NEGATIVE) Influenza Type B Ag NEGATIVE (NEGATIVE) RSV (PCR) NEGATIVE (NEGATIVE) SARS-CoV-2 (PCR) NEGATIVE (NEGATIVE) Slides for Path Review - Radiology Impressions Radiology Exams & Impressions: Radiology Procedures Category Date Time Status CHEST 1 VIEW (PORTABLE) Stat Exams 04/02/24 09:17 Completed Assessment/Plan (1) Influenza A Current Visit: Yes Status: Acute Assessment & Plan: -Tamiflu -Supportive care with supplemental oxygen, anti-pyretics, anti-emetics, nebs -on RA at baseline - currently on 2L -solumedrol Code(s): J10.1 - FLU DUE TO OTH IDENT INFLUENZA VIRUS W OTH RESP MANIFEST (2) Type 2 diabetes mellitus Current Visit: Yes Status: Acute Assessment & Plan: -ada diet -a1c -SSI/glargine (3) COPD exacerbation Current Visit: Yes Status: Acute Assessment & Plan: -Secondary to FluA -CXR reviewed with no acute findings -RA at baseline - currently RA -Supplemental oxygen with goal spo2 88-92% -Nebs/INH -RT eval and follow -solumedrol Code(s): J44.1 - CHRONIC OBSTRUCTIVE PULMONARY DISEASE W (ACUTE) EXACERBATION (4) Generalized weakness Current Visit: Yes Status: Acute Assessment & Plan: -secondary to flu A -PT/OT Code(s): R53.1 - WEAKNESS (5) History of atrial fibrillation Current Visit: Yes Status: Acute Assessment & Plan: -On coumadin managed by the coumadin clinic -INR reviewed at 2.21 - will have pharmacy continue to manage Code(s): Z86.79 - PERSONAL HISTORY OF OTHER DISEASES OF THE CIRCULATORY SYSTEM (6) History of lung cancer Current Visit: Yes Status: Acute Assessment & Plan: -s/p right lobectomy Code(s): Z85.118 - PERSONAL HISTORY OF MALIGNANT NEOPLASM OF BRONCHUS AND LUNG (7) Obesity, Class III, BMI 40-49.9 (morbid obesity) Current Visit: Yes Status: Acute Assessment & Plan: -advised ADA diet and exercise VTE: coumadin PPI: protonix Dispo: 1-2 days Code(s): E66.01 - MORBID (SEVERE) OBESITY DUE TO EXCESS CALORIES <MARIPOSA KAYE - Last Filed: 04/02/24 21:31> History of Present Illness - Chief Complaint History of Present Illness: is a 73 year old female. - Physical Exam Vital Signs: Vital Signs - 24 hr Temp Pulse Resp BP BP BP Pulse Ox 04/02/24 20:04 69 14 96 04/02/24 19:58 98.5 F 73 19 102/50 94 L 04/02/24 16:00 98.5 F 62 16 103/51 95 04/02/24 14:41 65 04/02/24 14:03 98.4 F 60 20 115/55 96 04/02/24 13:59 68 18 96 04/02/24 13:00 65 20 104/46 96 04/02/24 12:32 63 25 H 83/41 95 04/02/24 12:01 63 23 102/46 98 04/02/24 11:30 66 24 111/83 99 04/02/24 11:00 98.9 F 67 24 117/73 89 L 04/02/24 10:01 68 25 H 131/50 95 04/02/24 09:43 64 18 94 L 04/02/24 09:30 73 15 159/95 95 04/02/24 09:24 100.3 F 68 15 166/78 166/78 94 L Results - Labs Lab/Micro Results: Lab Results-Last 24 Hours 04/02/24 04/02/24 04/02/24 Range/Units 09:40 09:40 09:40 WBC 8.0 (3.98-10.04) x10^3/uL RBC 4.16 (3.93-5.22) x10^6/uL Hgb 11.8 (11.2-15.7) g/dL Hct 36.5 (34.1-44.9) % MCV 87.7 (79.4-94.8) fL MCH 28.4 (25.6-32.2) pg MCHC 32.3 (32.2-35.5) g/dL RDW 16.0 H (11.7-14.4) % Plt Count 185 (182-369) x10^3/uL MPV 11.9 (9.4-12.3) fL Gran % 85.6 H (34.0-71.1) % Immature Gran % (Auto) 0.2 (0.001-0.429) % Nucleat RBC Rel Count 0.0 (0.00-0.2) % Eos # (Auto) 0.05 (0.04-0.36) x10^3/uL Immature Gran # (Auto) 0.02 (0.001-0.031) x10^3u/L Absolute Lymphs (auto) 0.56 L (1.18-3.74) x10^3/uL Absolute Monos (auto) 0.50 (0.24-0.86) x10^3/uL Absolute Nucleated RBC 0.00 (0.00-0.012) x10^3u/L Lymphocytes % 7.0 L (19.3-51.7) % Monocytes % 6.2 (4.7-12.5) % Eosinophils % 0.6 L (0.7-5.8) % Basophils % 0.4 (0.1-1.2) % Absolute Granulocytes 6.86 H (1.56-6.13) x10^3/uL Basophils # 0.03 (0.01-0.08) x10^3/uL PT (9.4-12.5) SECONDS INR (0.8-3.0) APTT (25.1-36.5) SECONDS Sodium 139 (135-145) mmol/L Potassium 3.8 (3.5-5.1) mmol/L Chloride 108 H (98-107) mmol/L Carbon Dioxide 24 (22-30) mmol/L Anion Gap 10.6 (5-15) MEQ/L BUN 18 H (7-17) mg/dL Creatinine 0.75 (0.52-1.04) mg/dL Estimated GFR 84.0 ML/MIN Glucose 101 (74-106) mg/dL POC Glucometer (74 to 106) mg/dL Hemoglobin A1c (4.5-6.0) % Lactic Acid (0.4-2.0) Calcium 8.7 (8.4-10.2) mg/dL Total Bilirubin 0.90 (0.2-1.3) mg/dL AST 29 (14-36) U/L ALT 22 (0-35) U/L Alkaline Phosphatase 62 (38-126) U/L Troponin I < 0.012 (0.000-0.033) ng/mL NT-Pro-B Natriuret Pep 905 (<300) pg/mL Serum Total Protein 6.0 L (6.3-8.2) g/dL Albumin 3.9 (3.5-5.0) g/dL Urine Color (Yellow) Urine Appearance (Clear) Urine pH (4.6-8.0) Ur Specific [place] (1.005-1.030) Urine Protein (Negative) Urine Glucose (UA) (Negative) mg/dL Urine Ketones (Negative) Urine Blood (Negative) Urine Nitrite (Negative) Urine Bilirubin (Negative) Urine Urobilinogen (0.2) mg/dL Ur Leukocyte Esterase (Negative) U Hyaline Cast (Auto) (0-2) /LPF Urine Microscopic RBC (0-5) /HPF Urine Microscopic WBC (0-5) /HPF Ur Epithelial Cells (None Seen) /HPF Urine Bacteria (None Seen) /HPF Urine Culture Reflexed (NO) Influenza Type A Ag (NEGATIVE) Influenza Type B Ag (NEGATIVE) RSV (PCR) (NEGATIVE) SARS-CoV-2 (PCR) (NEGATIVE) Slides for Path Review YES 04/02/24 04/02/24 04/02/24 Range/Units 09:40 09:44 09:56 WBC (3.98-10.04) x10^3/uL RBC (3.93-5.22) x10^6/uL Hgb (11.2-15.7) g/dL Hct (34.1-44.9) % MCV (79.4-94.8) fL MCH (25.6-32.2) pg MCHC (32.2-35.5) g/dL RDW (11.7-14.4) % Plt Count (182-369) x10^3/uL MPV (9.4-12.3) fL Gran % (34.0-71.1) % Immature Gran % (Auto) (0.001-0.429) % Nucleat RBC Rel Count (0.00-0.2) % Eos # (Auto) (0.04-0.36) x10^3/uL Immature Gran # (Auto) (0.001-0.031) x10^3u/L Absolute Lymphs (auto) (1.18-3.74) x10^3/uL Absolute Monos (auto) (0.24-0.86) x10^3/uL Absolute Nucleated RBC (0.00-0.012) x10^3u/L Lymphocytes % (19.3-51.7) % Monocytes % (4.7-12.5) % Eosinophils % (0.7-5.8) % Basophils % (0.1-1.2) % Absolute Granulocytes (1.56-6.13) x10^3/uL Basophils # (0.01-0.08) x10^3/uL PT 22.9 H (9.4-12.5) SECONDS INR 2.21 (0.8-3.0) APTT 30.6 (25.1-36.5) SECONDS Sodium (135-145) mmol/L Potassium (3.5-5.1) mmol/L Chloride (98-107) mmol/L Carbon Dioxide (22-30) mmol/L Anion Gap (5-15) MEQ/L BUN (7-17) mg/dL Creatinine (0.52-1.04) mg/dL Estimated GFR ML/MIN Glucose (74-106) mg/dL POC Glucometer (74 to 106) mg/dL Hemoglobin A1c 6.17 H (4.5-6.0) % Lactic Acid 1.8 (0.4-2.0) Calcium (8.4-10.2) mg/dL Total Bilirubin (0.2-1.3) mg/dL AST (14-36) U/L ALT (0-35) U/L Alkaline Phosphatase (38-126) U/L Troponin I (0.000-0.033) ng/mL NT-Pro-B Natriuret Pep (<300) pg/mL Serum Total Protein (6.3-8.2) g/dL Albumin (3.5-5.0) g/dL Urine Color (Yellow) Urine Appearance (Clear) Urine pH (4.6-8.0) Ur Specific [place] (1.005-1.030) Urine Protein (Negative) Urine Glucose (UA) (Negative) mg/dL Urine Ketones (Negative) Urine Blood (Negative) Urine Nitrite (Negative) Urine Bilirubin (Negative) Urine Urobilinogen (0.2) mg/dL Ur Leukocyte Esterase (Negative) U Hyaline Cast (Auto) (0-2) /LPF Urine Microscopic RBC (0-5) /HPF Urine Microscopic WBC (0-5) /HPF Ur Epithelial Cells (None Seen) /HPF Urine Bacteria (None Seen) /HPF Urine Culture Reflexed (NO) Influenza Type A Ag (NEGATIVE) Influenza Type B Ag (NEGATIVE) RSV (PCR) (NEGATIVE) SARS-CoV-2 (PCR) (NEGATIVE) Slides for Path Review 04/02/24 04/02/24 04/02/24 Range/Units 09:58 12:56 17:14 WBC (3.98-10.04) x10^3/uL RBC (3.93-5.22) x10^6/uL Hgb (11.2-15.7) g/dL Hct (34.1-44.9) % MCV (79.4-94.8) fL MCH (25.6-32.2) pg MCHC (32.2-35.5) g/dL RDW (11.7-14.4) % Plt Count (182-369) x10^3/uL MPV (9.4-12.3) fL Gran % (34.0-71.1) % Immature Gran % (Auto) (0.001-0.429) % Nucleat RBC Rel Count (0.00-0.2) % Eos # (Auto) (0.04-0.36) x10^3/uL Immature Gran # (Auto) (0.001-0.031) x10^3u/L Absolute Lymphs (auto) (1.18-3.74) x10^3/uL Absolute Monos (auto) (0.24-0.86) x10^3/uL Absolute Nucleated RBC (0.00-0.012) x10^3u/L Lymphocytes % (19.3-51.7) % Monocytes % (4.7-12.5) % Eosinophils % (0.7-5.8) % Basophils % (0.1-1.2) % Absolute Granulocytes (1.56-6.13) x10^3/uL Basophils # (0.01-0.08) x10^3/uL PT (9.4-12.5) SECONDS INR (0.8-3.0) APTT (25.1-36.5) SECONDS Sodium (135-145) mmol/L Potassium (3.5-5.1) mmol/L Chloride (98-107) mmol/L Carbon Dioxide (22-30) mmol/L Anion Gap (5-15) MEQ/L BUN (7-17) mg/dL Creatinine (0.52-1.04) mg/dL Estimated GFR ML/MIN Glucose (74-106) mg/dL POC Glucometer 160 H (74 to 106) mg/dL Hemoglobin A1c (4.5-6.0) % Lactic Acid (0.4-2.0) Calcium (8.4-10.2) mg/dL Total Bilirubin (0.2-1.3) mg/dL AST (14-36) U/L ALT (0-35) U/L Alkaline Phosphatase (38-126) U/L Troponin I < 0.012 (0.000-0.033) ng/mL NT-Pro-B Natriuret Pep (<300) pg/mL Serum Total Protein (6.3-8.2) g/dL Albumin (3.5-5.0) g/dL Urine Color (Yellow) Urine Appearance (Clear) Urine pH (4.6-8.0) Ur Specific [place] (1.005-1.030) Urine Protein (Negative) Urine Glucose (UA) (Negative) mg/dL Urine Ketones (Negative) Urine Blood (Negative) Urine Nitrite (Negative) Urine Bilirubin (Negative) Urine Urobilinogen (0.2) mg/dL Ur Leukocyte Esterase (Negative) U Hyaline Cast (Auto) (0-2) /LPF Urine Microscopic RBC (0-5) /HPF Urine Microscopic WBC (0-5) /HPF Ur Epithelial Cells (None Seen) /HPF Urine Bacteria (None Seen) /HPF Urine Culture Reflexed (NO) Influenza Type A Ag POSITIVE A (NEGATIVE) Influenza Type B Ag NEGATIVE (NEGATIVE) RSV (PCR) NEGATIVE (NEGATIVE) SARS-CoV-2 (PCR) NEGATIVE (NEGATIVE) Slides for Path Review 04/02/24 04/02/24 04/02/24 Range/Units 17:30 21:02 Unknown WBC (3.98-10.04) x10^3/uL RBC (3.93-5.22) x10^6/uL Hgb (11.2-15.7) g/dL Hct (34.1-44.9) % MCV (79.4-94.8) fL MCH (25.6-32.2) pg MCHC (32.2-35.5) g/dL RDW (11.7-14.4) % Plt Count (182-369) x10^3/uL MPV (9.4-12.3) fL Gran % (34.0-71.1) % Immature Gran % (Auto) (0.001-0.429) % Nucleat RBC Rel Count (0.00-0.2) % Eos # (Auto) (0.04-0.36) x10^3/uL Immature Gran # (Auto) (0.001-0.031) x10^3u/L Absolute Lymphs (auto) (1.18-3.74) x10^3/uL Absolute Monos (auto) (0.24-0.86) x10^3/uL Absolute Nucleated RBC (0.00-0.012) x10^3u/L Lymphocytes % (19.3-51.7) % Monocytes % (4.7-12.5) % Eosinophils % (0.7-5.8) % Basophils % (0.1-1.2) % Absolute Granulocytes (1.56-6.13) x10^3/uL Basophils # (0.01-0.08) x10^3/uL PT (9.4-12.5) SECONDS INR (0.8-3.0) APTT (25.1-36.5) SECONDS Sodium (135-145) mmol/L Potassium (3.5-5.1) mmol/L Chloride (98-107) mmol/L Carbon Dioxide (22-30) mmol/L Anion Gap (5-15) MEQ/L BUN (7-17) mg/dL Creatinine (0.52-1.04) mg/dL Estimated GFR ML/MIN Glucose (74-106) mg/dL POC Glucometer 203 H (74 to 106) mg/dL Hemoglobin A1c (4.5-6.0) % Lactic Acid (0.4-2.0) Calcium (8.4-10.2) mg/dL Total Bilirubin (0.2-1.3) mg/dL AST (14-36) U/L ALT (0-35) U/L Alkaline Phosphatase (38-126) U/L Troponin I < 0.012 (0.000-0.033) ng/mL NT-Pro-B Natriuret Pep (<300) pg/mL Serum Total Protein (6.3-8.2) g/dL Albumin (3.5-5.0) g/dL Urine Color Dark Yellow A (Yellow) Urine Appearance Clear (Clear) Urine pH 5.0 (4.6-8.0) Ur Specific [place] >=1.030 A (1.005-1.030) Urine Protein Trace A (Negative) Urine Glucose (UA) >=1000 A (Negative) mg/dL Urine Ketones Trace A (Negative) Urine Blood Negative (Negative) Urine Nitrite Negative (Negative) Urine Bilirubin Negative (Negative) Urine Urobilinogen 1.0 A (0.2) mg/dL Ur Leukocyte Esterase Trace A (Negative) U Hyaline Cast (Auto) NONE SEEN (0-2) /LPF Urine Microscopic RBC 0-2 (0-5) /HPF Urine Microscopic WBC 51-100 A (0-5) /HPF Ur Epithelial Cells Rare (None Seen) /HPF Urine Bacteria None Seen (None Seen) /HPF Urine Culture Reflexed YES (NO) Influenza Type A Ag (NEGATIVE) Influenza Type B Ag (NEGATIVE) RSV (PCR) (NEGATIVE) SARS-CoV-2 (PCR) (NEGATIVE) Slides for Path Review Accuchecks Date 04/02/24 Time 17:20 - Radiology Impressions Radiology Exams & Impressions: Radiology Procedures Category Date Time Status CHEST 1 VIEW (PORTABLE) Stat Exams 04/02/24 09:17 Completed - Other Procedures and Tests Respiratory Therapy 04/02/24 14:33 Oxygen NASAL CANNULA 2 lpm SHAHID Encounter - SHAHID Encounter Attestation SHAHID Encounter Attestation: "NirupersonaldoroteoeenJAIME Murphy andhavediscussed pertinent aspects of their care with Stephany Amezquita agree with the history, physical exam (any modifications based on my personal exam will be noted below), assessment, and plan as outlined in original note. Please see immediately below for my summary of findings and additional assessment and plan along with any meaningful corrections/explanations to the Subjective/Objective portions of the SHAHID note will be noted." My portion of the encounter took place via telemedicine. -Patient with history of COPD presenting with dyspnea, wheezing, mild hypoxia secondary to flu A. Will monitor overnight with oxygen support, nebs, Tamiflu. Anticipate discharge tomorrow.
[2024-04-02] MEDS ORDERED: NON-FORMULARY ITEM (Fexofenadine Hcl [Allegra Allergy] 180 MG Tablet) PO PRN (14:03)
[2024-04-02] MEDS: Tamiflu 75MG Capsule PO ONE (14:33)
[2024-04-02] MEDS ORDERED: CLARITIN 10 MG PO PRN (14:33)
[2024-04-02] MEDS: TYLENOL 325 MG PO PRN (14:33)
[2024-04-02] MEDS: Robitussin AC Syrup Unit Dose Cup PO PRN (14:33)
[2024-04-02] MEDS ORDERED: MEDICATION INTERVENTION MC SCH ×2 (15:00→15:15)
[2024-04-02] MEDS: PHARMACY DOSING REQUEST MC ONE (15:26)
[2024-04-02] MEDS: COUMADIN PO SCH (17:20)
[2024-04-02] MEDS: HUMALOG SQ PRN (17:20)
[2024-04-02 19:29] LABS: Appearance Clear (Clear); Bacteria None Seen /HPF (None Seen); Bilirubin Negative (Negative); Blood Negative (Negative); Epithelial Cells Rare /HPF (None Seen); Glucose, Urine >=1000 mg/dL (Negative); Hyaline Casts NONE SEEN /LPF (0-2); Ketones Trace (Negative); Leukocyte Esterase Trace (Negative); Nitrite Negative (Negative); Protein,Urine Dip Trace (Negative); RBC 0-2 /HPF (0-5); Specific Gravity >=1.030 (1.005-1.030); WBC 51-100 /HPF (0-5)
[2024-04-02] MEDS: Advair Hfa 115/21 Common canister IH SCH (20:03)
[2024-04-02] MEDS: VENTOLIN COMMON CANISTER IH SCH (20:04)
[2024-04-02] MEDS: Lantus Insulin SQ SCH (21:40)
[2024-04-02] MEDS: Toprol-Xl 25MG Tablets PO SCH (21:41)
[2024-04-02] MEDS: solu-MEDROL 40 MG, Sterile H2O 10 ml 1 ML IV SCH (21:41)
[2024-04-02] MEDS: Ambien 10 MG PO SCH (21:41)
[2024-04-02] MEDS: OSELTAMIVIR PHOSPHATE 30 MG CAP PO SCH (21:41)
[2024-04-02] MEDS: ZOCOR 20MG PO SCH (21:41)
[2024-04-02] MEDS ORDERED: NON-FORMULARY ITEM (Budesonide/Glycopyr/Formoterol [Breztri Aerosphere Inhaler] 10.7 GM Hf IH SCH (22:00)
[2024-04-02] MEDS ORDERED: COLESEVELAM HCL 625 MG PO SCH (22:00)
[2024-04-02] MEDS ORDERED: NON-FORMULARY ITEM (Rosuvastatin Calcium [Crestor] 10 MG Tablet) PO SCH (22:00)
--- NOTE | 2024-04-03 05:14 | PCM.NOTE ---
Date and Time: 04/03/24 0513 Subjective Assessment: is a 73 year old female with PMHX of cataracts, arrthmia, COPD, type II DM, OA, Diverticulitis, Pancreatitis, depression, pacemaker, lung cancer with wedge resection in 2020 who presented to ED 04/02/24 with complaints of shortness of breath, nausea with dry heaves, fever, cough, headache, and body aches. Symptoms began this morning with progressive shortness of breath. Cough with clear/yellow sputum. TMax 102.6 at home. 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 Denies cp, abdominal pain, MORA, dizziness, N/V/D. Upon arrival to ED patient febrile with temp of 100.3, tachypneic, and hypertensive. CXR with no acute cardiopulmonary findings. Lab findings unremarkable with the exception of FLUA +. Patient given Ceftriaxone, solumedrol, and azithromycin in ED. 04/03: Met with patient bedside. Endorses continued dyspnea, body aches, and headache. Remains on 2L oxygen. Afebrile overnight. Patient states she is not well enough to go home. Will continue steroid and oxygen. Will see if she qualifies for home oxygen. - Review of Systems Constitutional: Weakness Eyes: No Symptoms Ears, Nose, & Throat: No Symptoms Respiratory: Cough, Short Of Breath, Wheezing Cardiac: No Symptoms Abdominal/Gastrointestinal: No Symptoms Genitourinary Symptoms: No Symptoms Musculoskeletal: Other (body aches) Skin: No Symptoms Neurological: No Symptoms Psychological: No Symptoms Endocrine: No Symptoms Hematologic/Lymphatic: No Symptoms Immunological/Allergic: No Symptoms Objective Exam General Appearance: no apparent distress Neurologic Exam: alert, 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, cooperative Skin Exam: normal color Eye Exam: PERRL Ears, Nose, Throat Exam: normal ENT inspection Neck Exam: normal inspection Respiratory Exam: crackles/rales, wheezing Cardiovascular Exam: regular rate/rhythm, normal heart sounds Gastrointestinal/Abdomen Exam: soft, normal bowel sounds Extremity Exam: normal inspection Back Exam: normal inspection Pelvic Exam: deferred Rectal Exam: deferred Objective Data Vital Signs: Vital Signs - 24 hr Temp Pulse Resp BP BP BP Pulse Ox 04/03/24 03:58 97.9 F 72 25 H 146/60 93 L 04/02/24 23:29 98.3 F 77 15 122/69 94 L 04/02/24 20:04 69 14 96 04/02/24 19:58 98.5 F 73 19 102/50 94 L 04/02/24 16:00 98.5 F 62 16 103/51 95 04/02/24 14:41 65 04/02/24 14:03 98.4 F 60 20 115/55 96 04/02/24 13:59 68 18 96 04/02/24 13:00 65 20 104/46 96 04/02/24 12:32 63 25 H 83/41 95 04/02/24 12:01 63 23 102/46 98 04/02/24 11:30 66 24 111/83 99 04/02/24 11:00 98.9 F 67 24 117/73 89 L 04/02/24 10:01 68 25 H 131/50 95 04/02/24 09:43 64 18 94 L 04/02/24 09:30 73 15 159/95 95 04/02/24 09:24 100.3 F 68 15 166/78 166/78 94 L Pain Assessment - Last Documented Pain Intensity 10 Pain Scale Used 0-10 Pain Scale Intake and Output: Intake & Output 03/31/24 04/01/24 04/02/24 04/03/24 11:59 11:59 11:59 11:59 Intake Total 940 Balance 940 Weight 107.048 kg 117.5 kg Lab Results: Lab Results-Last 24 Hours 04/02/24 04/02/24 04/02/24 Range/Units 09:40 09:40 09:40 WBC 8.0 (3.98-10.04) x10^3/uL RBC 4.16 (3.93-5.22) x10^6/uL Hgb 11.8 (11.2-15.7) g/dL Hct 36.5 (34.1-44.9) % MCV 87.7 (79.4-94.8) fL MCH 28.4 (25.6-32.2) pg MCHC 32.3 (32.2-35.5) g/dL RDW 16.0 H (11.7-14.4) % Plt Count 185 (182-369) x10^3/uL MPV 11.9 (9.4-12.3) fL Gran % 85.6 H (34.0-71.1) % Immature Gran % (Auto) 0.2 (0.001-0.429) % Nucleat RBC Rel Count 0.0 (0.00-0.2) % Eos # (Auto) 0.05 (0.04-0.36) x10^3/uL Immature Gran # (Auto) 0.02 (0.001-0.031) x10^3u/L Absolute Lymphs (auto) 0.56 L (1.18-3.74) x10^3/uL Absolute Monos (auto) 0.50 (0.24-0.86) x10^3/uL Absolute Nucleated RBC 0.00 (0.00-0.012) x10^3u/L Lymphocytes % 7.0 L (19.3-51.7) % Monocytes % 6.2 (4.7-12.5) % Eosinophils % 0.6 L (0.7-5.8) % Basophils % 0.4 (0.1-1.2) % Absolute Granulocytes 6.86 H (1.56-6.13) x10^3/uL Basophils # 0.03 (0.01-0.08) x10^3/uL PT (9.4-12.5) SECONDS INR (0.8-3.0) APTT (25.1-36.5) SECONDS Sodium 139 (135-145) mmol/L Potassium 3.8 (3.5-5.1) mmol/L Chloride 108 H (98-107) mmol/L Carbon Dioxide 24 (22-30) mmol/L Anion Gap 10.6 (5-15) MEQ/L BUN 18 H (7-17) mg/dL Creatinine 0.75 (0.52-1.04) mg/dL Estimated GFR 84.0 ML/MIN Glucose 101 (74-106) mg/dL POC Glucometer (74 to 106) mg/dL Hemoglobin A1c (4.5-6.0) % Lactic Acid (0.4-2.0) Calcium 8.7 (8.4-10.2) mg/dL Total Bilirubin 0.90 (0.2-1.3) mg/dL AST 29 (14-36) U/L ALT 22 (0-35) U/L Alkaline Phosphatase 62 (38-126) U/L Troponin I < 0.012 (0.000-0.033) ng/mL NT-Pro-B Natriuret Pep 905 (<300) pg/mL Serum Total Protein 6.0 L (6.3-8.2) g/dL Albumin 3.9 (3.5-5.0) g/dL Urine Color (Yellow) Urine Appearance (Clear) Urine pH (4.6-8.0) Ur Specific [place] (1.005-1.030) Urine Protein (Negative) Urine Glucose (UA) (Negative) mg/dL Urine Ketones (Negative) Urine Blood (Negative) Urine Nitrite (Negative) Urine Bilirubin (Negative) Urine Urobilinogen (0.2) mg/dL Ur Leukocyte Esterase (Negative) U Hyaline Cast (Auto) (0-2) /LPF Urine Microscopic RBC (0-5) /HPF Urine Microscopic WBC (0-5) /HPF Ur Epithelial Cells (None Seen) /HPF Urine Bacteria (None Seen) /HPF Urine Culture Reflexed (NO) Influenza Type A Ag (NEGATIVE) Influenza Type B Ag (NEGATIVE) RSV (PCR) (NEGATIVE) SARS-CoV-2 (PCR) (NEGATIVE) Slides for Path Review YES 04/02/24 04/02/24 04/02/24 Range/Units 09:40 09:44 09:56 WBC (3.98-10.04) x10^3/uL RBC (3.93-5.22) x10^6/uL Hgb (11.2-15.7) g/dL Hct (34.1-44.9) % MCV (79.4-94.8) fL MCH (25.6-32.2) pg MCHC (32.2-35.5) g/dL RDW (11.7-14.4) % Plt Count (182-369) x10^3/uL MPV (9.4-12.3) fL Gran % (34.0-71.1) % Immature Gran % (Auto) (0.001-0.429) % Nucleat RBC Rel Count (0.00-0.2) % Eos # (Auto) (0.04-0.36) x10^3/uL Immature Gran # (Auto) (0.001-0.031) x10^3u/L Absolute Lymphs (auto) (1.18-3.74) x10^3/uL Absolute Monos (auto) (0.24-0.86) x10^3/uL Absolute Nucleated RBC (0.00-0.012) x10^3u/L Lymphocytes % (19.3-51.7) % Monocytes % (4.7-12.5) % Eosinophils % (0.7-5.8) % Basophils % (0.1-1.2) % Absolute Granulocytes (1.56-6.13) x10^3/uL Basophils # (0.01-0.08) x10^3/uL PT 22.9 H (9.4-12.5) SECONDS INR 2.21 (0.8-3.0) APTT 30.6 (25.1-36.5) SECONDS Sodium (135-145) mmol/L Potassium (3.5-5.1) mmol/L Chloride (98-107) mmol/L Carbon Dioxide (22-30) mmol/L Anion Gap (5-15) MEQ/L BUN (7-17) mg/dL Creatinine (0.52-1.04) mg/dL Estimated GFR ML/MIN Glucose (74-106) mg/dL POC Glucometer (74 to 106) mg/dL Hemoglobin A1c 6.17 H (4.5-6.0) % Lactic Acid 1.8 (0.4-2.0) Calcium (8.4-10.2) mg/dL Total Bilirubin (0.2-1.3) mg/dL AST (14-36) U/L ALT (0-35) U/L Alkaline Phosphatase (38-126) U/L Troponin I (0.000-0.033) ng/mL NT-Pro-B Natriuret Pep (<300) pg/mL Serum Total Protein (6.3-8.2) g/dL Albumin (3.5-5.0) g/dL Urine Color (Yellow) Urine Appearance (Clear) Urine pH (4.6-8.0) Ur Specific [place] (1.005-1.030) Urine Protein (Negative) Urine Glucose (UA) (Negative) mg/dL Urine Ketones (Negative) Urine Blood (Negative) Urine Nitrite (Negative) Urine Bilirubin (Negative) Urine Urobilinogen (0.2) mg/dL Ur Leukocyte Esterase (Negative) U Hyaline Cast (Auto) (0-2) /LPF Urine Microscopic RBC (0-5) /HPF Urine Microscopic WBC (0-5) /HPF Ur Epithelial Cells (None Seen) /HPF Urine Bacteria (None Seen) /HPF Urine Culture Reflexed (NO) Influenza Type A Ag (NEGATIVE) Influenza Type B Ag (NEGATIVE) RSV (PCR) (NEGATIVE) SARS-CoV-2 (PCR) (NEGATIVE) Slides for Path Review 04/02/24 04/02/24 04/02/24 Range/Units 09:58 12:56 17:14 WBC (3.98-10.04) x10^3/uL RBC (3.93-5.22) x10^6/uL Hgb (11.2-15.7) g/dL Hct (34.1-44.9) % MCV (79.4-94.8) fL MCH (25.6-32.2) pg MCHC (32.2-35.5) g/dL RDW (11.7-14.4) % Plt Count (182-369) x10^3/uL MPV (9.4-12.3) fL Gran % (34.0-71.1) % Immature Gran % (Auto) (0.001-0.429) % Nucleat RBC Rel Count (0.00-0.2) % Eos # (Auto) (0.04-0.36) x10^3/uL Immature Gran # (Auto) (0.001-0.031) x10^3u/L Absolute Lymphs (auto) (1.18-3.74) x10^3/uL Absolute Monos (auto) (0.24-0.86) x10^3/uL Absolute Nucleated RBC (0.00-0.012) x10^3u/L Lymphocytes % (19.3-51.7) % Monocytes % (4.7-12.5) % Eosinophils % (0.7-5.8) % Basophils % (0.1-1.2) % Absolute Granulocytes (1.56-6.13) x10^3/uL Basophils # (0.01-0.08) x10^3/uL PT (9.4-12.5) SECONDS INR (0.8-3.0) APTT (25.1-36.5) SECONDS Sodium (135-145) mmol/L Potassium (3.5-5.1) mmol/L Chloride (98-107) mmol/L Carbon Dioxide (22-30) mmol/L Anion Gap (5-15) MEQ/L BUN (7-17) mg/dL Creatinine (0.52-1.04) mg/dL Estimated GFR ML/MIN Glucose (74-106) mg/dL POC Glucometer 160 H (74 to 106) mg/dL Hemoglobin A1c (4.5-6.0) % Lactic Acid (0.4-2.0) Calcium (8.4-10.2) mg/dL Total Bilirubin (0.2-1.3) mg/dL AST (14-36) U/L ALT (0-35) U/L Alkaline Phosphatase (38-126) U/L Troponin I < 0.012 (0.000-0.033) ng/mL NT-Pro-B Natriuret Pep (<300) pg/mL Serum Total Protein (6.3-8.2) g/dL Albumin (3.5-5.0) g/dL Urine Color (Yellow) Urine Appearance (Clear) Urine pH (4.6-8.0) Ur Specific [place] (1.005-1.030) Urine Protein (Negative) Urine Glucose (UA) (Negative) mg/dL Urine Ketones (Negative) Urine Blood (Negative) Urine Nitrite (Negative) Urine Bilirubin (Negative) Urine Urobilinogen (0.2) mg/dL Ur Leukocyte Esterase (Negative) U Hyaline Cast (Auto) (0-2) /LPF Urine Microscopic RBC (0-5) /HPF Urine Microscopic WBC (0-5) /HPF Ur Epithelial Cells (None Seen) /HPF Urine Bacteria (None Seen) /HPF Urine Culture Reflexed (NO) Influenza Type A Ag POSITIVE A (NEGATIVE) Influenza Type B Ag NEGATIVE (NEGATIVE) RSV (PCR) NEGATIVE (NEGATIVE) SARS-CoV-2 (PCR) NEGATIVE (NEGATIVE) Slides for Path Review 04/02/24 04/02/24 04/02/24 Range/Units 17:30 21:02 Unknown WBC (3.98-10.04) x10^3/uL RBC (3.93-5.22) x10^6/uL Hgb (11.2-15.7) g/dL Hct (34.1-44.9) % MCV (79.4-94.8) fL MCH (25.6-32.2) pg MCHC (32.2-35.5) g/dL RDW (11.7-14.4) % Plt Count (182-369) x10^3/uL MPV (9.4-12.3) fL Gran % (34.0-71.1) % Immature Gran % (Auto) (0.001-0.429) % Nucleat RBC Rel Count (0.00-0.2) % Eos # (Auto) (0.04-0.36) x10^3/uL Immature Gran # (Auto) (0.001-0.031) x10^3u/L Absolute Lymphs (auto) (1.18-3.74) x10^3/uL Absolute Monos (auto) (0.24-0.86) x10^3/uL Absolute Nucleated RBC (0.00-0.012) x10^3u/L Lymphocytes % (19.3-51.7) % Monocytes % (4.7-12.5) % Eosinophils % (0.7-5.8) % Basophils % (0.1-1.2) % Absolute Granulocytes (1.56-6.13) x10^3/uL Basophils # (0.01-0.08) x10^3/uL PT (9.4-12.5) SECONDS INR (0.8-3.0) APTT (25.1-36.5) SECONDS Sodium (135-145) mmol/L Potassium (3.5-5.1) mmol/L Chloride (98-107) mmol/L Carbon Dioxide (22-30) mmol/L Anion Gap (5-15) MEQ/L BUN (7-17) mg/dL Creatinine (0.52-1.04) mg/dL Estimated GFR ML/MIN Glucose (74-106) mg/dL POC Glucometer 203 H (74 to 106) mg/dL Hemoglobin A1c (4.5-6.0) % Lactic Acid (0.4-2.0) Calcium (8.4-10.2) mg/dL Total Bilirubin (0.2-1.3) mg/dL AST (14-36) U/L ALT (0-35) U/L Alkaline Phosphatase (38-126) U/L Troponin I < 0.012 (0.000-0.033) ng/mL NT-Pro-B Natriuret Pep (<300) pg/mL Serum Total Protein (6.3-8.2) g/dL Albumin (3.5-5.0) g/dL Urine Color Dark Yellow A (Yellow) Urine Appearance Clear (Clear) Urine pH 5.0 (4.6-8.0) Ur Specific [place] >=1.030 A (1.005-1.030) Urine Protein Trace A (Negative) Urine Glucose (UA) >=1000 A (Negative) mg/dL Urine Ketones Trace A (Negative) Urine Blood Negative (Negative) Urine Nitrite Negative (Negative) Urine Bilirubin Negative (Negative) Urine Urobilinogen 1.0 A (0.2) mg/dL Ur Leukocyte Esterase Trace A (Negative) U Hyaline Cast (Auto) NONE SEEN (0-2) /LPF Urine Microscopic RBC 0-2 (0-5) /HPF Urine Microscopic WBC 51-100 A (0-5) /HPF Ur Epithelial Cells Rare (None Seen) /HPF Urine Bacteria None Seen (None Seen) /HPF Urine Culture Reflexed YES (NO) Influenza Type A Ag (NEGATIVE) Influenza Type B Ag (NEGATIVE) RSV (PCR) (NEGATIVE) SARS-CoV-2 (PCR) (NEGATIVE) Slides for Path Review Radiology Exams: Radiology Procedures Category Date Time Status CHEST 1 VIEW (PORTABLE) Stat Exams 04/02/24 09:17 Completed Assessment/Plan (1) Influenza A Current Visit: Yes Status: Acute Assessment & Plan: -Tamiflu -Supportive care with supplemental oxygen, anti-pyretics, anti-emetics, nebs -on RA at baseline - currently on 2L -solumedrol 04/03: -qualify for home oxygen -Continue Tamiflu and solumedrol -Supportive care -CMP and CBC reviewed and unremarkable. Code(s): J10.1 - FLU DUE TO OTH IDENT INFLUENZA VIRUS W OTH RESP MANIFEST (2) Type 2 diabetes mellitus Current Visit: Yes Status: Acute Assessment & Plan: -ada diet -a1c 6.17 -SSI/glargine (3) COPD exacerbation Current Visit: Yes Status: Acute Assessment & Plan: -Secondary to FluA -CXR reviewed with no acute findings -RA at baseline - currently RA -Supplemental oxygen with goal spo2 88-92% -Nebs/INH -RT eval and follow -solumedrol Code(s): J44.1 - CHRONIC OBSTRUCTIVE PULMONARY DISEASE W (ACUTE) EXACERBATION (4) Generalized weakness Current Visit: Yes Status: Acute Assessment & Plan: -secondary to flu A -PT/OT Code(s): R53.1 - WEAKNESS (5) History of atrial fibrillation Current Visit: Yes Status: Acute Assessment & Plan: -On coumadin managed by the coumadin clinic -INR reviewed at 2.21 - will have pharmacy continue to manage Code(s): Z86.79 - PERSONAL HISTORY OF OTHER DISEASES OF THE CIRCULATORY SYSTEM (6) History of lung cancer Current Visit: Yes Status: Acute Assessment & Plan: -s/p right lobectomy Code(s): Z85.118 - PERSONAL HISTORY OF MALIGNANT NEOPLASM OF BRONCHUS AND LUNG (7) Obesity, Class III, BMI 40-49.9 (morbid obesity) Current Visit: Yes Status: Acute Assessment & Plan: -advised ADA diet and exercise VTE: coumadin PPI: protonix Dispo: 1-2 days Code(s): E66.01 - MORBID (SEVERE) OBESITY DUE TO EXCESS CALORIES Code(s): J10.1 - FLU DUE TO OTH IDENT INFLUENZA VIRUS W OTH RESP MANIFEST (2) Type 2 diabetes mellitus Current Visit: Yes Status: Acute (3) COPD exacerbation Current Visit: Yes Status: Acute Code(s): J44.1 - CHRONIC OBSTRUCTIVE PULMONARY DISEASE W (ACUTE) EXACERBATION (4) Generalized weakness Current Visit: Yes Status: Acute Code(s): R53.1 - WEAKNESS (5) History of atrial fibrillation Current Visit: Yes Status: Acute Code(s): Z86.79 - PERSONAL HISTORY OF OTHER DISEASES OF THE CIRCULATORY SYSTEM (6) History of lung cancer Current Visit: Yes Status: Acute Code(s): Z85.118 - PERSONAL HISTORY OF MALIGNANT NEOPLASM OF BRONCHUS AND LUNG (7) Obesity, Class III, BMI 40-49.9 (morbid obesity) Current Visit: Yes Status: Acute Code(s): E66.01 - MORBID (SEVERE) OBESITY DUE TO EXCESS CALORIES
[2024-04-03 05:20] LABS: Absolute Neutrophil Ct (ANC) 5.17 x10^3/uL (1.56-6.13); Basophil (Absolute #) 0 x10^3/uL (0.01-0.08); Eosinophil % 0.3 % (0.7-5.8); Eosinophil (Absolute #) 0.02 x10^3/uL (0.04-0.36); Hematocrit 33.4 % (34.1-44.9); Hemoglobin 10.8 g/dL (11.2-15.7); IMMATURE GRAN # 0.04 x10^3u/L (0.001-0.031); IMMATURE GRAN % 0.7 % (0.001-0.429); Lymphocyte (Absolute #) 0.21 x10^3/uL (1.18-3.74); Lymphocytes % 3.7 % (19.3-51.7); Mean Cell Volume 88.6 fL (79.4-94.8); Mean Corpuscular Hemoglobin 28.6 pg (25.6-32.2); Mean Corpuscular Hgb Concent. 32.3 g/dL (32.2-35.5); Mean Platelet Volume 11.7 fL (9.4-12.3); Monocytes % 5.2 % (4.7-12.5); Neutrophil % 90.1 % (34.0-71.1); Platelet Count 167 x10^3/uL (182-369); Red Blood Count 3.77 x10^6/uL (3.93-5.22); Red Cell Distribution Width 16.6 % (11.7-14.4); White Blood Count 5.7 x10^3/uL (3.98-10.04)
[2024-04-03 05:42] LABS: ALBUMIN 3.8 g/dL (3.5-5.0); ANION GAP 8.3 MEQ/L (5-15); BILIRUBIN,TOTAL 0.5 mg/dL (0.2-1.3); Calcium 8.4 mg/dL (8.4-10.2); Creatinine 1 0.74 mg/dL (0.52-1.04); EST GLOMERULAR FILTRATION RATE 85.4 ML/MIN; Potassium 3.6 mmol/L (3.5-5.1); Total Protein 6.3 g/dL (6.3-8.2)
[2024-04-03] MEDS ORDERED: FLUTICASONE-SALMETEROL 250-50 IH ONE (07:25)
[2024-04-03] MEDS: FLUTICASONE-SALMETEROL 250-50 IH SCH (07:30)
[2024-04-03] MEDS: Spiriva 18 Mcg/Cap Inhaler IH SCH (07:31)
[2024-04-03 08:18] LABS: INR 3.09 (0.8-3.0); PROTIME 31.3 SECONDS (9.4-12.5)
[2024-04-03 09:01] LABS: Slide Review 1 YES
[2024-04-03] MEDS: Toprol Xl 50 MG PO SCH (09:14)
[2024-04-03] MEDS: Protonix 40MG Tablet PO SCH (09:14)
[2024-04-03] MEDS: LASIX 20 MG PO SCH (09:15)
[2024-04-03] MEDS: NORCO 5/325 MG PO PRN (09:18)
[2024-04-03] MEDS: DUONEB 0.5-3 MG/3 ml Neb IH PRN (10:35)
[2024-04-03] MEDS: Robitussin 100 MG/5 ML PO PRN (11:25)
[2024-04-03] MEDS: Zofran 4 MG/2 ML VIAL IV PRN (15:16)
[2024-04-03] MEDS ORDERED: PROVENTIL 2.5 MG/3 ML NEB IH PRN (16:44)
[2024-04-03] MEDS ORDERED: HUMALOG SQ PRN (16:55)
[2024-04-03] MEDS: PROVENTIL 2.5 MG/3 ML NEB IH SCH (17:00)
[2024-04-03] MEDS: COUMADIN PO SCH (17:14)
[2024-04-03] MEDS ORDERED: COUMADIN PO SCH (18:00)
[2024-04-03] MEDS ORDERED: solu-MEDROL ONE (22:07)
[2024-04-03] MEDS: HUMALOG SQ PRN (22:17)
[2024-04-04 05:13] LABS: Absolute Neutrophil Ct (ANC) 6.15 x10^3/uL (1.56-6.13); BASOPHIL % 0.1 % (0.1-1.2); Basophil (Absolute #) 0.01 x10^3/uL (0.01-0.08); Eosinophil % 0.4 % (0.7-5.8); Eosinophil (Absolute #) 0.03 x10^3/uL (0.04-0.36); Hematocrit 32.4 % (34.1-44.9); Hemoglobin 10.4 g/dL (11.2-15.7); IMMATURE GRAN # 0.04 x10^3u/L (0.001-0.031); IMMATURE GRAN % 0.6 % (0.001-0.429); Lymphocyte (Absolute #) 0.39 x10^3/uL (1.18-3.74); Lymphocytes % 5.5 % (19.3-51.7); Mean Corpuscular Hemoglobin 28.3 pg (25.6-32.2); Mean Corpuscular Hgb Concent. 32.1 g/dL (32.2-35.5); Mean Platelet Volume 11.9 fL (9.4-12.3); Monocyte (Absolute #) 0.46 x10^3/uL (0.24-0.86); Monocytes % 6.5 % (4.7-12.5); Neutrophil % 86.9 % (34.0-71.1); Platelet Count 165 x10^3/uL (182-369); Red Blood Count 3.68 x10^6/uL (3.93-5.22); Red Cell Distribution Width 16.8 % (11.7-14.4); White Blood Count 7.1 x10^3/uL (3.98-10.04)
[2024-04-04 05:30] LABS: PROTIME 51.3 SECONDS (9.4-12.5)
[2024-04-04 05:33] LABS: INR 5.25 (0.8-3.0)
[2024-04-04 05:36] LABS: ALBUMIN 3.5 g/dL (3.5-5.0); ANION GAP 4.8 MEQ/L (5-15); BILIRUBIN,TOTAL 0.3 mg/dL (0.2-1.3); Calcium 8.4 mg/dL (8.4-10.2); Creatinine 1 0.79 mg/dL (0.52-1.04); EST GLOMERULAR FILTRATION RATE 78.9 ML/MIN; Potassium 4.2 mmol/L (3.5-5.1); Total Protein 5.8 g/dL (6.3-8.2)
--- NOTE | 2024-04-04 05:43 | PCM.NOTE ---
Date and Time: 04/04/24 0542 Subjective Assessment: HPI: is a 73 year old female with PMHX of cataracts, arrthmia, COPD, type II DM, OA, Diverticulitis, Pancreatitis, depression, pacemaker, lung cancer with wedge resection in 2020 who presented to ED 04/02/24 with complaints of shortness of breath, nausea with dry heaves, fever, cough, headache, and body aches. Symptoms began this morning with progressive shortness of breath. Cough with clear/yellow sputum. TMax 102.6 at home. 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 Denies cp, abdominal pain, MORA, dizziness, N/V/D. Upon arrival to ED patient febrile with temp of 100.3, tachypneic, and hypertensive. CXR with no acute cardiopulmonary findings. Lab findings unremarkable with the exception of FLUA +. Patient given Ceftriaxone, solumedrol, and azithromycin in ED. 04/03: Met with patient bedside. Endorses continued dyspnea, body aches, and headache. Remains on 2L oxygen. Afebrile overnight. Patient states she is not well enough to go home. Will continue steroid and oxygen. Will see if she qualifies for home oxygen. 04/04: Patient endorsing N/V and dyspnea. On RA currently. INR at 5.25- managed by the coumadin clinic - coumadin on hold. Patient states she is too weak to be discharged. - Review of Systems Constitutional: Weakness Eyes: No Symptoms Ears, Nose, & Throat: No Symptoms Respiratory: Cough, Short Of Breath, Wheezing Cardiac: No Symptoms Abdominal/Gastrointestinal: Nausea, Vomiting Genitourinary Symptoms: No Symptoms Musculoskeletal: No Symptoms Skin: No Symptoms Neurological: No Symptoms Psychological: No Symptoms Endocrine: No Symptoms Hematologic/Lymphatic: No Symptoms Immunological/Allergic: No Symptoms Objective Exam General Appearance: no apparent distress Neurologic Exam: alert, 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, cooperative Skin Exam: normal color Eye Exam: PERRL Neck Exam: normal inspection Respiratory Exam: diminished breath sounds, crackles/rales, wheezing Cardiovascular Exam: regular rate/rhythm, normal heart sounds Gastrointestinal/Abdomen Exam: soft, normal bowel sounds Extremity Exam: normal inspection Back Exam: normal inspection Pelvic Exam: deferred Rectal Exam: deferred Objective Data Vital Signs: Vital Signs - 24 hr Temp Pulse Resp BP Pulse Ox 04/04/24 04:00 98.2 F 60 19 133/64 91 L 04/04/24 00:00 98.7 F 76 20 136/63 92 L 04/03/24 20:00 98.8 F 66 19 113/56 95 04/03/24 17:15 68 18 96 04/03/24 16:00 98.6 F 59 L 18 141/63 94 L 04/03/24 14:00 73 04/03/24 11:26 98.6 F 66 20 104/51 96 04/03/24 10:38 65 20 96 04/03/24 07:45 94 L 04/03/24 07:36 98.3 F 67 22 121/58 96 04/03/24 07:31 67 18 88 L Pain Assessment - Last Documented Pain Intensity 4 Pain Scale Used 0-10 Pain Scale Intake and Output: Intake & Output 04/01/24 04/02/24 04/03/24 04/04/24 11:59 11:59 11:59 11:59 Intake Total 1180 1340 Output Total 800 1300 Balance 380 40 Weight 107.048 kg 117 kg Lab Results: Lab Results-Last 24 Hours 04/03/24 04/03/24 04/03/24 Range/Units 05:15 05:15 05:15 WBC (3.98-10.04) x10^3/uL RBC (3.93-5.22) x10^6/uL Hgb (11.2-15.7) g/dL Hct (34.1-44.9) % MCV (79.4-94.8) fL MCH (25.6-32.2) pg MCHC (32.2-35.5) g/dL RDW (11.7-14.4) % Plt Count (182-369) x10^3/uL MPV (9.4-12.3) fL Gran % (34.0-71.1) % Immature Gran % (Auto) (0.001-0.429) % Nucleat RBC Rel Count (0.00-0.2) % Eos # (Auto) (0.04-0.36) x10^3/uL Immature Gran # (Auto) (0.001-0.031) x10^3u/L Absolute Lymphs (auto) (1.18-3.74) x10^3/uL Absolute Monos (auto) (0.24-0.86) x10^3/uL Absolute Nucleated RBC (0.00-0.012) x10^3u/L Lymphocytes % (19.3-51.7) % Monocytes % (4.7-12.5) % Eosinophils % (0.7-5.8) % Basophils % (0.1-1.2) % Absolute Granulocytes (1.56-6.13) x10^3/uL Basophils # (0.01-0.08) x10^3/uL PT 31.3 H (9.4-12.5) SECONDS INR 3.09 H D (0.8-3.0) Sodium 138 (135-145) mmol/L Potassium 3.6 (3.5-5.1) mmol/L Chloride 105 (98-107) mmol/L Carbon Dioxide 28 (22-30) mmol/L Anion Gap 8.3 (5-15) MEQ/L BUN 16 (7-17) mg/dL Creatinine 0.74 (0.52-1.04) mg/dL Estimated GFR 85.4 ML/MIN Glucose 192 H (74-106) mg/dL POC Glucometer (74 to 106) mg/dL Calcium 8.4 (8.4-10.2) mg/dL Total Bilirubin 0.50 (0.2-1.3) mg/dL AST 31 (14-36) U/L ALT 23 (0-35) U/L Alkaline Phosphatase 57 (38-126) U/L Serum Total Protein 6.3 (6.3-8.2) g/dL Albumin 3.8 (3.5-5.0) g/dL Slides for Path Review YES 04/03/24 04/03/24 04/03/24 Range/Units 07:25 11:17 16:20 WBC (3.98-10.04) x10^3/uL RBC (3.93-5.22) x10^6/uL Hgb (11.2-15.7) g/dL Hct (34.1-44.9) % MCV (79.4-94.8) fL MCH (25.6-32.2) pg MCHC (32.2-35.5) g/dL RDW (11.7-14.4) % Plt Count (182-369) x10^3/uL MPV (9.4-12.3) fL Gran % (34.0-71.1) % Immature Gran % (Auto) (0.001-0.429) % Nucleat RBC Rel Count (0.00-0.2) % Eos # (Auto) (0.04-0.36) x10^3/uL Immature Gran # (Auto) (0.001-0.031) x10^3u/L Absolute Lymphs (auto) (1.18-3.74) x10^3/uL Absolute Monos (auto) (0.24-0.86) x10^3/uL Absolute Nucleated RBC (0.00-0.012) x10^3u/L Lymphocytes % (19.3-51.7) % Monocytes % (4.7-12.5) % Eosinophils % (0.7-5.8) % Basophils % (0.1-1.2) % Absolute Granulocytes (1.56-6.13) x10^3/uL Basophils # (0.01-0.08) x10^3/uL PT (9.4-12.5) SECONDS INR (0.8-3.0) Sodium (135-145) mmol/L Potassium (3.5-5.1) mmol/L Chloride (98-107) mmol/L Carbon Dioxide (22-30) mmol/L Anion Gap (5-15) MEQ/L BUN (7-17) mg/dL Creatinine (0.52-1.04) mg/dL Estimated GFR ML/MIN Glucose (74-106) mg/dL POC Glucometer 167 H 158 H 196 H (74 to 106) mg/dL Calcium (8.4-10.2) mg/dL Total Bilirubin (0.2-1.3) mg/dL AST (14-36) U/L ALT (0-35) U/L Alkaline Phosphatase (38-126) U/L Serum Total Protein (6.3-8.2) g/dL Albumin (3.5-5.0) g/dL Slides for Path Review 04/03/24 04/04/24 04/04/24 Range/Units 20:57 05:11 05:11 WBC 7.1 (3.98-10.04) x10^3/uL RBC 3.68 L (3.93-5.22) x10^6/uL Hgb 10.4 L (11.2-15.7) g/dL Hct 32.4 L (34.1-44.9) % MCV 88.0 (79.4-94.8) fL MCH 28.3 (25.6-32.2) pg MCHC 32.1 L (32.2-35.5) g/dL RDW 16.8 H (11.7-14.4) % Plt Count 165 L (182-369) x10^3/uL MPV 11.9 (9.4-12.3) fL Gran % 86.9 H (34.0-71.1) % Immature Gran % (Auto) 0.6 H (0.001-0.429) % Nucleat RBC Rel Count 0.0 (0.00-0.2) % Eos # (Auto) 0.03 L (0.04-0.36) x10^3/uL Immature Gran # (Auto) 0.04 H (0.001-0.031) x10^3u/L Absolute Lymphs (auto) 0.39 L (1.18-3.74) x10^3/uL Absolute Monos (auto) 0.46 (0.24-0.86) x10^3/uL Absolute Nucleated RBC 0.00 (0.00-0.012) x10^3u/L Lymphocytes % 5.5 L (19.3-51.7) % Monocytes % 6.5 (4.7-12.5) % Eosinophils % 0.4 L (0.7-5.8) % Basophils % 0.1 (0.1-1.2) % Absolute Granulocytes 6.15 H (1.56-6.13) x10^3/uL Basophils # 0.01 (0.01-0.08) x10^3/uL PT (9.4-12.5) SECONDS INR (0.8-3.0) Sodium 137 (135-145) mmol/L Potassium 4.2 (3.5-5.1) mmol/L Chloride 103 (98-107) mmol/L Carbon Dioxide 33 H (22-30) mmol/L Anion Gap 4.8 L (5-15) MEQ/L BUN 18 H (7-17) mg/dL Creatinine 0.79 (0.52-1.04) mg/dL Estimated GFR 78.9 ML/MIN Glucose 149 H (74-106) mg/dL POC Glucometer 179 H (74 to 106) mg/dL Calcium 8.4 (8.4-10.2) mg/dL Total Bilirubin 0.30 (0.2-1.3) mg/dL AST 35 (14-36) U/L ALT 25 (0-35) U/L Alkaline Phosphatase 53 (38-126) U/L Serum Total Protein 5.8 L (6.3-8.2) g/dL Albumin 3.5 (3.5-5.0) g/dL Slides for Path Review 04/04/24 Range/Units 05:11 WBC (3.98-10.04) x10^3/uL RBC (3.93-5.22) x10^6/uL Hgb (11.2-15.7) g/dL Hct (34.1-44.9) % MCV (79.4-94.8) fL MCH (25.6-32.2) pg MCHC (32.2-35.5) g/dL RDW (11.7-14.4) % Plt Count (182-369) x10^3/uL MPV (9.4-12.3) fL Gran % (34.0-71.1) % Immature Gran % (Auto) (0.001-0.429) % Nucleat RBC Rel Count (0.00-0.2) % Eos # (Auto) (0.04-0.36) x10^3/uL Immature Gran # (Auto) (0.001-0.031) x10^3u/L Absolute Lymphs (auto) (1.18-3.74) x10^3/uL Absolute Monos (auto) (0.24-0.86) x10^3/uL Absolute Nucleated RBC (0.00-0.012) x10^3u/L Lymphocytes % (19.3-51.7) % Monocytes % (4.7-12.5) % Eosinophils % (0.7-5.8) % Basophils % (0.1-1.2) % Absolute Granulocytes (1.56-6.13) x10^3/uL Basophils # (0.01-0.08) x10^3/uL PT 51.3 H (9.4-12.5) SECONDS INR 5.25 H* D (0.8-3.0) Sodium (135-145) mmol/L Potassium (3.5-5.1) mmol/L Chloride (98-107) mmol/L Carbon Dioxide (22-30) mmol/L Anion Gap (5-15) MEQ/L BUN (7-17) mg/dL Creatinine (0.52-1.04) mg/dL Estimated GFR ML/MIN Glucose (74-106) mg/dL POC Glucometer (74 to 106) mg/dL Calcium (8.4-10.2) mg/dL Total Bilirubin (0.2-1.3) mg/dL AST (14-36) U/L ALT (0-35) U/L Alkaline Phosphatase (38-126) U/L Serum Total Protein (6.3-8.2) g/dL Albumin (3.5-5.0) g/dL Slides for Path Review Radiology Exams: Radiology Procedures Category Date Time Status CHEST 1 VIEW (PORTABLE) Stat Exams 04/02/24 09:17 Completed Multi-Disciplinary Progress Notes: Multi-Disciplinary Progress Notes 04/03/24 07:31 (created 04/03/24 12:28) Respiratory Note by Prisca Osman PT'S O2 SAT ON ROOM AIR WHILE AT REST WAS 88%. PT WAS PLACED ON 2LPM VIA NASAL CANNULA. O2 SAT INCREASED TO 94%. Initialized on 04/03/24 12:28 - END OF NOTE Assessment/Plan (1) Influenza A Current Visit: Yes Status: Acute Assessment & Plan: -Tamiflu -Supportive care with supplemental oxygen, anti-pyretics, anti-emetics, nebs -on RA at baseline - currently on 2L -solumedrol 04/03: -qualify for home oxygen -Continue Tamiflu and solumedrol -Supportive care -CMP and CBC reviewed and unremarkable. 04/04: -CMP/CBC reviewed and unremarkable -continue steroid and Tamiflu -Patient now on RA Code(s): J10.1 - FLU DUE TO OTH IDENT INFLUENZA VIRUS W OTH RESP MANIFEST Supratherapeutic INR -Most likely secondary to steroids -Pharmacy managing - OP coumadin clinic - holding coumadin dose -INR reviewed at 5.25 (2) Type 2 diabetes mellitus Current Visit: Yes Status: Acute Assessment & Plan: -ada diet -a1c 6.17 -SSI/glargine (3) COPD exacerbation Current Visit: Yes Status: Acute Assessment & Plan: -Secondary to FluA -CXR reviewed with no acute findings -RA at baseline - currently RA -Supplemental oxygen with goal spo2 88-92% -Nebs/INH -RT eval and follow -solumedrol Code(s): J44.1 - CHRONIC OBSTRUCTIVE PULMONARY DISEASE W (ACUTE) EXACERBATION (4) Generalized weakness Current Visit: Yes Status: Acute Assessment & Plan: -secondary to flu A -PT/OT Code(s): R53.1 - WEAKNESS (5) History of atrial fibrillation Current Visit: Yes Status: Acute Assessment & Plan: -On coumadin managed by the coumadin clinic -INR reviewed at 2.21 - will have pharmacy continue to manage Code(s): Z86.79 - PERSONAL HISTORY OF OTHER DISEASES OF THE CIRCULATORY SYSTEM (6) History of lung cancer Current Visit: Yes Status: Acute Assessment & Plan: -s/p right lobectomy Code(s): Z85.118 - PERSONAL HISTORY OF MALIGNANT NEOPLASM OF BRONCHUS AND LUNG (7) Obesity, Class III, BMI 40-49.9 (morbid obesity) Current Visit: Yes Status: Acute Assessment & Plan: -advised ADA diet and exercise VTE: coumadin PPI: protonix Code(s): J10.1 - FLU DUE TO OTH IDENT INFLUENZA VIRUS W OTH RESP MANIFEST (2) Type 2 diabetes mellitus Current Visit: Yes Status: Acute (3) COPD exacerbation Current Visit: Yes Status: Acute Code(s): J44.1 - CHRONIC OBSTRUCTIVE PULMONARY DISEASE W (ACUTE) EXACERBATION (4) Generalized weakness Current Visit: Yes Status: Acute Code(s): R53.1 - WEAKNESS (5) History of atrial fibrillation Current Visit: Yes Status: Acute Code(s): Z86.79 - PERSONAL HISTORY OF OTHER DISEASES OF THE CIRCULATORY SYSTEM (6) History of lung cancer Current Visit: Yes Status: Acute Code(s): Z85.118 - PERSONAL HISTORY OF MALIGNANT NEOPLASM OF BRONCHUS AND LUNG (7) Obesity, Class III, BMI 40-49.9 (morbid obesity) Current Visit: Yes Status: Acute Code(s): E66.01 - MORBID (SEVERE) OBESITY DUE TO EXCESS CALORIES (8) Supratherapeutic INR Current Visit: Yes Status: Acute Code(s): R79.1 - ABNORMAL COAGULATION PROFILE
[2024-04-04 08:51] LABS: Slide Review 1 YES
[2024-04-04] MEDS: ULTRAM 50 MG PO PRN (09:19)
[2024-04-04] MEDS: Robitussin AC Syrup Unit Dose Cup PO PRN (13:11)
[2024-04-04] MEDS: TYLENOL EXTRA STRENGTH 500 MG PO PRN (13:11)
--- NOTE | 2024-04-05 05:34 | PCM.DS ---
Discharge Summary Date of Admission: 04/03/24 05:13 Date of Discharge: 04/05/24 Admitting Physician: MARIPOSA KAYE MD Primary Care Provider: SKYLER CEJA Allergies Allergies clarithromycin [From Biaxin] Allergy (Severe, Verified 04/02/24 09:16) Hives Coconut Allergy (Severe, Verified 04/02/24 09:16) Difficulty Breathing green dye *RETIRED-07/03/12 [Green Dye] Allergy (Mild, Verified 04/02/24 09:16) Swelling swelling ears red dye [Red Dye] Allergy (Mild, Verified 04/02/24 09:16) Swelling ears swell adhesive Allergy (Verified 04/02/24 09:16) Rash cholestyramine Allergy (Verified 04/02/24 09:16) iodine Allergy (Verified 04/02/24 09:16) Wheezing latex Allergy (Verified 04/02/24 09:16) Rash nitrofurantoin [From Macrobid] Allergy (Verified 04/02/24 09:16) levofloxacin [From Levaquin] Adverse Reaction (Mild, Verified 04/02/24 09:16) [facility] Summary - Hospital Course Hospital Course: HPI: is a 73 year old female with PMHX of cataracts, arrthmia, COPD, type II DM, OA, Diverticulitis, Pancreatitis, depression, pacemaker, lung cancer with wedge resection in 2020 who presented to ED 04/02/24 with complaints of shortness of breath, nausea with dry heaves, fever, cough, headache, and body aches. Symp toms began this morning with progressive shortness of breath. Cough with clear/yellow sputum. TMax 102.6 at home. 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 Denies cp, abdominal pain, MORA, dizziness, N/V/D. Upon arrival to ED patient febrile with temp of 100.3, tachypneic, and hypertensive. CXR with no acute cardiopulmonary findings. Lab findings unremarkable with the exception of FLUA +. Patient given Ceftriaxone, solumedrol, and azithromycin in ED. Dyspnea improved and patient now on RA. Coumadin on hold due to supratherapeutic levels- managed by coumadin clinic- will provide instructions for patient. IP treatment with tamiflu/solumedrol Discharge Note New Diagnosis: Influenza A New Medications:tamiflu/prednisone Follow Up: pcp Latest Assessment & Plan (1) Influenza A Current Visit: Yes Status: Acute Assessment & Plan: -Tamiflu -Supportive care with supplemental oxygen, anti-pyretics, anti-emetics, nebs -on RA at baseline - currently on 2L -solumedrol 04/03: -qualify for home oxygen -Continue Tamiflu and solumedrol -Supportive care -CMP and CBC reviewed and unremarkable. 04/04: -CMP/CBC reviewed and unremarkable -continue steroid and Tamiflu -Patient now on RA Code(s): J10.1 - FLU DUE TO OTH IDENT INFLUENZA VIRUS W OTH RESP MANIFEST Supratherapeutic INR -Most likely secondary to steroids -Pharmacy managing - OP coumadin clinic - holding coumadin dose -INR reviewed at 5.25 04/05: -INR at 3.75- pharmacy to advise on coumadin dosing and recheck (2) Type 2 diabetes mellitus Current Visit: Yes Status: Acute Assessment & Plan: -ada diet -a1c 6.17 -SSI/glargine (3) COPD exacerbation Current Visit: Yes Status: Acute Assessment & Plan: -Secondary to FluA -CXR reviewed with no acute findings -RA at baseline - currently RA -Supplemental oxygen with goal spo2 88-92% -Nebs/INH -RT eval and follow -solumedrol Code(s): J44.1 - CHRONIC OBSTRUCTIVE PULMONARY DISEASE W (ACUTE) EXACERBATION (4) Generalized weakness Current Visit: Yes Status: Acute Assessment & Plan: -secondary to flu A -PT/OT Code(s): R53.1 - WEAKNESS (5) History of atrial fibrillation Current Visit: Yes Status: Acute Assessment & Plan: -On coumadin managed by the coumadin clinic -INR reviewed at 2.21 - will have pharmacy continue to manage Code(s): Z86.79 - PERSONAL HISTORY OF OTHER DISEASES OF THE CIRCULATORY SYSTEM (6) History of lung cancer Current Visit: Yes Status: Acute Assessment & Plan: -s/p right lobectomy Code(s): Z85.118 - PERSONAL HISTORY OF MALIGNANT NEOPLASM OF BRONCHUS AND LUNG (7) Obesity, Class III, BMI 40-49.9 (morbid obesity) Current Visit: Yes Status: Acute Assessment & Plan: -advised ADA diet and exercise VTE: coumadin PPI: protonix I spent 35 minutes [id number] with the patient on the day of discharge performing discharge exam, discussing hospital stay and discharge instructions with patient and caregivers, preparation of discharge records, prescriptions & referral forms and addressing any questions/concerns the patient had as documented above. - Vitals & Intake/Output Vital Signs: Vital Signs Temperature 97.2 F 04/05/24 04:00 Pulse Rate 60 04/05/24 04:00 Respiratory Rate 20 04/05/24 04:00 Blood Pressure 150/70 04/05/24 04:00 O2 Sat by Pulse Oximetry 98 04/05/24 04:00 Intake & Output: Intake & Output 04/02/24 04/03/24 04/04/24 04/05/24 11:59 11:59 11:59 11:59 Intake Total 1180 1480 960 Output Total 800 1300 3000 Balance 380 180 -2040 Weight 107.048 kg 117 kg 116.6 kg - Lab Result Diagrams: 04/05/24 06:36 04/05/24 06:36 Lab Results-Last 24 Hrs: Lab Results-Last 24 Hours 04/04/24 04/04/24 04/04/24 Range/Units 05:11 05:11 05:11 PT 51.3 H (9.4-12.5) SECONDS INR 5.25 H* D (0.8-3.0) Sodium 137 (135-145) mmol/L Potassium 4.2 (3.5-5.1) mmol/L Chloride 103 (98-107) mmol/L Carbon Dioxide 33 H (22-30) mmol/L Anion Gap 4.8 L (5-15) MEQ/L BUN 18 H (7-17) mg/dL Creatinine 0.79 (0.52-1.04) mg/dL Estimated GFR 78.9 ML/MIN Glucose 149 H (74-106) mg/dL POC Glucometer (74 to 106) mg/dL Calcium 8.4 (8.4-10.2) mg/dL Total Bilirubin 0.30 (0.2-1.3) mg/dL AST 35 (14-36) U/L ALT 25 (0-35) U/L Alkaline Phosphatase 53 (38-126) U/L Serum Total Protein 5.8 L (6.3-8.2) g/dL Albumin 3.5 (3.5-5.0) g/dL Slides for Path Review YES 04/04/24 04/04/24 04/04/24 Range/Units 07:12 11:48 17:22 PT (9.4-12.5) SECONDS INR (0.8-3.0) Sodium (135-145) mmol/L Potassium (3.5-5.1) mmol/L Chloride (98-107) mmol/L Carbon Dioxide (22-30) mmol/L Anion Gap (5-15) MEQ/L BUN (7-17) mg/dL Creatinine (0.52-1.04) mg/dL Estimated GFR ML/MIN Glucose (74-106) mg/dL POC Glucometer 142 H 133 H 180 H (74 to 106) mg/dL Calcium (8.4-10.2) mg/dL Total Bilirubin (0.2-1.3) mg/dL AST (14-36) U/L ALT (0-35) U/L Alkaline Phosphatase (38-126) U/L Serum Total Protein (6.3-8.2) g/dL Albumin (3.5-5.0) g/dL Slides for Path Review 04/04/24 Range/Units 22:44 PT (9.4-12.5) SECONDS INR (0.8-3.0) Sodium (135-145) mmol/L Potassium (3.5-5.1) mmol/L Chloride (98-107) mmol/L Carbon Dioxide (22-30) mmol/L Anion Gap (5-15) MEQ/L BUN (7-17) mg/dL Creatinine (0.52-1.04) mg/dL Estimated GFR ML/MIN Glucose (74-106) mg/dL POC Glucometer 259 H (74 to 106) mg/dL Calcium (8.4-10.2) mg/dL Total Bilirubin (0.2-1.3) mg/dL AST (14-36) U/L ALT (0-35) U/L Alkaline Phosphatase (38-126) U/L Serum Total Protein (6.3-8.2) g/dL Albumin (3.5-5.0) g/dL Slides for Path Review Micro Results-Entire Visit: Microbiology 04/02/24 09:56 Blood Culture - Preliminary Blood 04/02/24 09:50 Blood Culture - Preliminary Blood 04/02/24 Unknown Urine Culture - Final Clean Catch Midstream NO GROWTH Accuchecks Date 04/04/24 Date 04/04/24 Date 04/04/24 Time 11:49 Time 07:22 - Procedures and Test Procedures and Tests throughout Hospitalization: Therapy Orders & Screens 04/02/24 13:59 Respiratory Therapy Consult ONCE Comment: Reason For Exam: Diagnosis: SOB 04/02/24 14:33 Oxygen NASAL CANNULA 2 lpm Comment: Diagnosis: FLU A, COPD EXACERBATION, HYPOXIA, GEN WEAKNESS, NAUSEA 04/03/24 12:14 Qualify for Home Oxygen TODAY Comment: Diagnosis: FLU A, COPD EXACERBATION, HYPOXIA, GEN WEAKNESS, NAUSEA 04/04/24 07:00 Respiratory MDI Q12H Comment: Diagnosis: FLU A, COPD EXACERBATION, HYPOXIA, GEN WEAKNESS, NAUSEA Discharge Exam General Appearance: no apparent distress Neurologic Exam: alert, 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, cooperative Eye Exam: PERRL Ears, Nose, Throat Exam: normal ENT inspection Neck Exam: normal inspection Respiratory Exam: crackles/rales, wheezing Cardiovascular Exam: regular rate/rhythm, normal heart sounds Gastrointestinal/Abdomen Exam: soft, normal bowel sounds Pelvic Exam: deferred Rectal Exam: deferred Back Exam: normal inspection Extremity Exam: normal inspection Skin Exam: normal color Final Diagnosis/Problem List - Final Discharge Diagnosis/Problem (1) Influenza A Current Visit: Yes Status: Acute Code(s): J10.1 - FLU DUE TO OTH IDENT INFLUENZA VIRUS W OTH RESP MANIFEST (2) Type 2 diabetes mellitus Current Visit: Yes Status: Acute (3) COPD exacerbation Current Visit: Yes Status: Acute Code(s): J44.1 - CHRONIC OBSTRUCTIVE PULMONARY DISEASE W (ACUTE) EXACERBATION (4) Generalized weakness Current Visit: Yes Status: Acute Code(s): R53.1 - WEAKNESS (5) History of atrial fibrillation Current Visit: Yes Status: Acute Code(s): Z86.79 - PERSONAL HISTORY OF OTHER DISEASES OF THE CIRCULATORY SYSTEM (6) History of lung cancer Current Visit: Yes Status: Acute Code(s): Z85.118 - PERSONAL HISTORY OF MALIGNANT NEOPLASM OF BRONCHUS AND LUNG (7) Obesity, Class III, BMI 40-49.9 (morbid obesity) Current Visit: Yes Status: Acute Code(s): E66.01 - MORBID (SEVERE) OBESITY DUE TO EXCESS CALORIES (8) Supratherapeutic INR Current Visit: Yes Status: Acute Code(s): R79.1 - ABNORMAL COAGULATION PROFILE - Discharge Discharge Date: 04/05/24 Disposition: Home, Self-Care Condition: Stable Prescriptions: New Methylprednisolone Packet [Medrol Dosepack] 4 mg PO UD #1 packet Oseltamivir Phosphate [Oseltamivir Phosphate 30 mg Cap] 30 mg PO BID 3 Days #6 cap PANTOPRAZOLE 40 mg Tablet [Protonix 40MG Tablet] 40 mg PO DAILY 30 Days #30 tab Guaifenesin/Codeine 5 ml [Robitussin AC Syrup Unit Dose Cup] 5 ml PO Q4H PRN PRN 7 Days #210 ml PRN Reason: Cough Continue Zolpidem Tartrate [Ambien] 10 mg PO HS Budesonide/Glycopyr/Formoterol [Breztri Aerosphere Inhaler] 2 puffs IH BID Fexofenadine HCl [Sonia Allergy] 180 mg PO HS PRN PRN PRN Reason: Allergies Metoprolol Succinate 50 mg PO DAILY Insulin Glargine,Hum.rec.anlog [Lantus] 20 unit SQ HS Albuterol Common Canister [Ventolin Common Canister] 2 puff IH BID Furosemide [Lasix] 20 mg PO DAILY Colesevelam HCl 625 mg PO BID Rosuvastatin Calcium [Crestor] 10 mg PO HS Metoprolol Succinate 25 mg Xl* [Toprol-Xl 25MG Tablets] 25 mg PO HS Prednisone 5 mg [Deltasone 5 mg] 2.5 mg PO DAILY Cbd Gummy 1 tab PO HS Discontinued Warfarin Sodium 5 mg PO UD Warfarin Sodium 2.5 mg PO UD #90 tablet Additional Instructions: Hold coumadin until Sunday per Pharmacy (coumadin clinic) pharmacist will contact you Sunday with instructions on dosing Do not take Ambien/cough syrup within 2 hours of each other Follow up with: SKYLER CEJA NP [Primary Care Provider] -
[2024-04-05 06:46] LABS: Absolute Neutrophil Ct (ANC) 4.43 x10^3/uL (1.56-6.13); Basophil (Absolute #) 0 x10^3/uL (0.01-0.08); Eosinophil % 0.9 % (0.7-5.8); Eosinophil (Absolute #) 0.05 x10^3/uL (0.04-0.36); Hematocrit 35.2 % (34.1-44.9); IMMATURE GRAN # 0.02 x10^3u/L (0.001-0.031); IMMATURE GRAN % 0.4 % (0.001-0.429); Lymphocyte (Absolute #) 0.51 x10^3/uL (1.18-3.74); Lymphocytes % 9.3 % (19.3-51.7); Mean Cell Volume 88.9 fL (79.4-94.8); Mean Corpuscular Hemoglobin 27.8 pg (25.6-32.2); Mean Corpuscular Hgb Concent. 31.3 g/dL (32.2-35.5); Monocyte (Absolute #) 0.49 x10^3/uL (0.24-0.86); Monocytes % 8.9 % (4.7-12.5); Neutrophil % 80.5 % (34.0-71.1); Platelet Count 152 x10^3/uL (182-369); Red Blood Count 3.96 x10^6/uL (3.93-5.22); Red Cell Distribution Width 16.5 % (11.7-14.4); White Blood Count 5.5 x10^3/uL (3.98-10.04)
[2024-04-05 07:08] LABS: INR 3.75 (0.8-3.0); PROTIME 37.5 SECONDS (9.4-12.5)
[2024-04-05 07:11] LABS: ALBUMIN 3.6 g/dL (3.5-5.0); ANION GAP 5.8 MEQ/L (5-15); BILIRUBIN,TOTAL 0.4 mg/dL (0.2-1.3); Calcium 8.3 mg/dL (8.4-10.2); Creatinine 1 0.86 mg/dL (0.52-1.04); EST GLOMERULAR FILTRATION RATE 71.3 ML/MIN
[2024-04-05 07:58] VITALS: RESP 16
[2024-04-05 11:52] VITALS: BP 162/70; PULSE 60; TEMP 97; O2SAT 94
== END 2024-04-05 14:19 | disposition home or self-care (01) | DRG 195 ==
LOC: ED 09:12 → MED SURG 13:22 → OBSVTOIN 04-03 05:13
PROVIDERS: ADMIT Internal Medicine; ATTEND Internal Medicine
DX: J10.1 Influenza due to other identified influenza virus with other respiratory manifestations (principal); E11.9 Type 2 diabetes mellitus without complications; J44.1 Chronic obstructive pulmonary disease with (acute) exacerbation; J44.9 Chronic obstructive pulmonary disease, unspecified; R53.1 Weakness; Z86.79 Personal history of other diseases of the circulatory system; Z85.118 Personal history of other malignant neoplasm of bronchus and lung; E66.01 Morbid (severe) obesity due to excess calories; R79.1 Abnormal coagulation profile; R06.02 Shortness of breath; R11.0 Nausea; R50.9 Fever, unspecified; Z79.01 Long term (current) use of anticoagulants; Z79.899 Other long term (current) drug therapy
CPT/HCPCS: 0241U; 36415; 71045; 80053; 81001; 82947; 83036; 83605; 83880; 84484; 85025; 85610; 85730; 87040; 87086; 93005; 93041; 93268; 94640; 94760; 96365; 96374; 96375; 99285; G0378; Q3014; J0456; J0696; J1817; J2405; J2919; J7609; A9270-GY

== ENCOUNTER 2024-05-23 09:24 | Observation (INO) | payer MEDICARE, OTHER ==
[2024-05-23] MEDS ORDERED: DUONEB 0.5-3 MG/3 ml Neb IH ONE (09:26)
[2024-05-23] MEDS: DUONEB 0.5-3 MG/3 ml Neb IH ONE (09:31)
--- NOTE | 2024-05-23 09:36 | ERPHSYRPT ---
- History of Present Illness Time Seen by Provider: 05/23/24 09:24 Source: patient Exam Limitations: no limitations Physician History: For the past 3 days pt has had shortness of air, chest soreness with coughing & cough productive of yellow-clear phlegm. Pt also states she has had intermittent diarrhea for the past 2 years. Pt denies nausea, vomiting, fever, abdominal pain. Allergies/Adverse Reactions: clarithromycin [From Biaxin] Allergy (Severe, Verified 05/23/24 09:41) Hives Coconut Allergy (Severe, Verified 05/23/24 09:41) Difficulty Breathing green dye *RETIRED-07/03/12 [Green Dye] Allergy (Mild, Verified 05/23/24 09:41) Swelling swelling ears red dye [Red Dye] Allergy (Mild, Verified 05/23/24 09:41) Swelling ears swell adhesive Allergy (Verified 05/23/24 09:41) Rash cholestyramine Allergy (Verified 05/23/24 09:41) iodine Allergy (Verified 05/23/24 09:41) Wheezing latex Allergy (Verified 05/23/24 09:41) Rash nitrofurantoin [From Macrobid] Allergy (Verified 05/23/24 09:41) levofloxacin [From Levaquin] Adverse Reaction (Mild, Verified 05/23/24 09:41) Joint Aches Home Medications: Zolpidem Tartrate [Ambien] 10 mg PO HS 08/16/15 [History] Fexofenadine HCl [Sonia Allergy] 180 mg PO HS PRN PRN 01/23/23 [History] Albuterol Common Canister [Ventolin Common Canister] 2 puff IH BID 09/20/23 [History] Insulin Glargine,Hum.rec.anlog [Lantus] 20 unit SQ HS 09/20/23 [History] Metoprolol Succinate 50 mg PO DAILY 09/20/23 [History] Furosemide [Lasix] 20 mg PO DAILY 11/21/23 [History] Colesevelam HCl 625 mg PO BID 02/18/24 [History] Metoprolol Succinate 25 mg Xl* [Toprol-Xl 25MG Tablets] 25 mg PO HS 02/18/24 [History] Rosuvastatin Calcium [Crestor] 10 mg PO HS 02/18/24 [History] Cbd Gummy 1 tab PO HS 04/02/24 [History] Warfarin Sodium 5 mg PO 3XW 05/23/24 [History] Warfarin Sodium 5 mg [Coumadin] 2.5 mg PO UD 05/23/24 [History] Hx Tetanus, Diphtheria Vaccination/Date Given: Yes Hx Influenza Vaccination/Date Given: Yes Hx Pneumococcal Vaccination/Date Given: Yes Travel Risk - Emerging Infectious Disease Are you exhibiting symptoms associated with any current EIDs: Yes Symptoms: Fever - Review of Systems Constitutional: No Fever Respiratory: Cough, Dyspnea Cardiac: Other (chest soreness with coughing) Abdominal/Gastrointestinal: Diarrhea, No Abdominal Pain, No Nausea, No Vomiting - Past Medical History Pertinent Past Medical History: Yes Neurological History: Other ENT History: Cataracts Cardiac History: Other Respiratory History: COPD, Lung Cancer Endocrine Medical History: Diabetes Type II Musculoskeletal History: Osteoarthritis GI Medical History: Diverticulitis, Gallbladder Disease, Pancreatitis History: No Pertinent History Psycho-Social History: No Pertinent History Female Reproductive Disorders: No Pertinent History Other Medical History: 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 PANCREATIC LESION. UPPER RIGHT AND LOWER LEFT LOBE REMOVED FOR LUNG CA. PACEMAKER. - Past Surgical History Past Surgical History: Yes Neuro Surgical History: No Pertinent History Cardiac: Pacemaker Respiratory: Lobectomy Gastrointestinal: Appendectomy, Cholecystectomy, Hernia Repair Genitourinary: No Pertinent History Musculoskeletal: No Pertinent History, Joint Replacement, Orthopedic Surgery Female Surgical History: Hysterectomy, Other Other Surgical History: tonsilectomy, carpal tunnel, trigger finger X3, BLADDER SLING, colorectal, SI fusion, left wedge resection to lungs July 16, 2020, PACEMAKER 2022 - Social History Smoking Status: Former smoker Drug Use: none - Social Determinants of Health Will the patient participate in the screening: Yes Do you worry about a steady place to live?: No In the past 12 months,have you had to go without utilities?: No Transportation Issues: No Has anyone in your support network made you feel unsafe?: No Have you or anyone in your house had to go w/o enough food: No - Nursing Vital Signs Nursing Vital Signs: Initial Vital Signs Temperature 98.6 F 05/23/24 09:25 Pulse Rate 64 05/23/24 09:25 Respiratory Rate 16 05/23/24 09:25 Blood Pressure 139/96 05/23/24 09:25 O2 Sat by Pulse Oximetry 97 05/23/24 09:25 Pain Scale Pain Intensity 0 - Physical Exam General Appearance: alert Eye Exam: eyes nml inspection Ears, Nose, Throat Exam: hearing grossly normal Neck Exam: normal inspection Respiratory Exam: wheezing (moderate coarse diffuse wheezing) Cardiovascular/Chest Exam: No friction rub Abdominal/Gastrointestinal Exam: normal bowel sounds Neurologic Exam: alert, cooperative Skin Exam: warm, dry - Course EKG Interpreted by Me: RATE (62), Other (QTc = 447; paced rhythm) - Radiology Exams Chest X-ray Interpretation: Discussed w/ radiologist (Continued nonacute hyperinflated chest with chronic features.) Ordered Tests: Active Orders 24 hr Category Date Time Status EKG-ER Only STAT Care 05/23/24 09:31 Active IV Insertion STAT Care 05/23/24 09:31 Active CHEST 2 VIEWS (PA AND LAT) Stat Exams 05/23/24 09:32 Completed AMYLASE Stat Lab 05/23/24 09:55 Completed BLOOD CULTURE Stat Lab 05/23/24 10:14 Received CBC W DIFF Stat Lab 05/23/24 09:31 Completed CMP Stat Lab 05/23/24 09:55 Completed CULTURE,SPUTUM Stat Lab 05/23/24 09:34 Ordered D-DIMER QUANTITATIVE Stat Lab 05/23/24 09:55 Completed LIPASE Stat Lab 05/23/24 09:55 Completed MAGNESIUM Stat Lab 05/23/24 09:55 Completed NT PRO BNPII Stat Lab 05/23/24 09:55 Completed PROTIME WITH INR Stat Lab 05/23/24 09:55 Completed PTT Stat Lab 05/23/24 09:55 Completed TROPONIN Q4H Lab 05/23/24 09:55 Completed TROPONIN Q4H Lab 05/23/24 13:45 Ordered TROPONIN Q4H Lab 05/23/24 17:45 Ordered UA W/RFX UR CULTURE Stat Lab 05/23/24 10:25 Received VENOUS BLOOD GAS Stat Lab 05/23/24 09:59 Completed Respiratory Therapy Assessment DAILY RT 05/23/24 09:32 Active Medication Summary Generic Name Dose Route Start Last Admin Trade Name Freq PRN Reason Stop Dose Admin Methylprednisolone Sodium 0 mg 05/23/24 11:19 Succinate 125 mg/ Sterile IV 05/23/24 11:20 Water 2 ml STAT ONE Discontinued Medications Generic Name Dose Route Start Last Admin Trade Name Freq PRN Reason Stop Dose Admin Albuterol/Ipratropium Confirm 05/23/24 09:26 Ipratropium/Albuterol Sulfate 3 Ml Ampul.Neb Administered 05/23/24 09:27 Dose 3 ml IH .STK-MED ONE Albuterol/Ipratropium 3 ml 05/23/24 09:31 05/23/24 09:31 Ipratropium/Albuterol Sulfate 3 Ml Ampul.Neb IH 05/23/24 09:32 3 ml STAT ONE Administration Ceftriaxone Sodium 1 gm in 100 mls @ 200 mls/hr 05/23/24 09:34 05/23/24 11:15 Rocephin 1 Gm / 100 Ml Nacl IV 05/23/24 10:03 Infused STAT ONE Infusion Ceftriaxone Sodium Confirm 05/23/24 10:13 Rocephin 1 Gm / 100 Ml Nacl Administered 05/23/24 10:14 Dose 1 gm in 100 mls @ ud IV .STK-MED ONE Morphine Sulfate 2 mg 05/23/24 10:09 05/23/24 10:15 Morphine Sulfate 2 Mg/Ml Inj IV 05/23/24 10:10 2 mg STAT ONE Administration Morphine Sulfate Confirm 05/23/24 10:12 Morphine Sulfate 2 Mg/Ml Inj Administered 05/23/24 10:13 Dose 2 mg .ROUTE .STK-MED ONE Lab/Rad Data: Laboratory Result Diagrams 05/23/24 09:31 05/23/24 09:55 Laboratory Results 05/23/24 05/23/24 05/23/24 Range/Units 10:04 09:59 09:55 WBC (3.98-10.04) x10^3/uL RBC (3.93-5.22) x10^6/uL Hgb (11.2-15.7) g/dL Hct (34.1-44.9) % MCV (79.4-94.8) fL MCH (25.6-32.2) pg MCHC (32.2-35.5) g/dL RDW (11.7-14.4) % Plt Count (182-369) x10^3/uL MPV (9.4-12.3) fL Gran % (34.0-71.1) % Immature Gran % (Auto) (0.001-0.429) % Nucleat RBC Rel Count (0.00-0.2) % Eos # (Auto) (0.04-0.36) x10^3/uL Immature Gran # (Auto) (0.001-0.031) x10^3u/L Absolute Lymphs (auto) (1.18-3.74) x10^3/uL Absolute Monos (auto) (0.24-0.86) x10^3/uL Absolute Nucleated RBC (0.00-0.012) x10^3u/L Lymphocytes % (19.3-51.7) % Monocytes % (4.7-12.5) % Eosinophils % (0.7-5.8) % Basophils % (0.1-1.2) % Absolute Granulocytes (1.56-6.13) x10^3/uL Basophils # (0.01-0.08) x10^3/uL PT (9.4-12.5) SECONDS INR (0.8-3.0) APTT (25.1-36.5) SECONDS D-Dimer (0.0-0.50) mg/L pO2/FiO2 Ratio 21.0 % VBG pH 7.43 H (7.32-7.42) VBG pCO2 at Pat Temp 43 (42-55) mm/Hg VBG pO2 at Pat Temp 38 (25-40) mm/Hg VBG HCO3 28.5 H (22-28) meq/L VBG O2 Sat (Pratik) 65.7 L (95-100) VBG Base Excess 3.7 H (-2.0-2.0) VBG Hemoglobin 12.5 VBG Carboxyhemoglobin 3.8 (0.0-6.9) % T HGB POC Potassium 3.5 (3.5-5.1) Sodium (135-145) mmol/L Potassium (3.5-5.1) mmol/L Chloride (98-107) mmol/L Carbon Dioxide (22-30) mmol/L Anion Gap (5-15) MEQ/L BUN (7-17) mg/dL Creatinine (0.52-1.04) mg/dL Estimated GFR ML/MIN Glucose (74-106) mg/dL Calcium (8.4-10.2) mg/dL Magnesium (1.6-2.3) mg/dL Total Bilirubin (0.2-1.3) mg/dL AST (14-36) U/L ALT (0-35) U/L Alkaline Phosphatase (38-126) U/L Troponin I < 0.012 (0.000-0.033) ng/mL NT-Pro-B Natriuret Pep (<300) pg/mL Serum Total Protein (6.3-8.2) g/dL Albumin (3.5-5.0) g/dL Amylase (30-110) U/L Lipase (23-300) U/L Influenza Type A Ag NEGATIVE (NEGATIVE) Influenza Type B Ag NEGATIVE (NEGATIVE) RSV (PCR) NEGATIVE (NEGATIVE) SARS-CoV-2 (PCR) NEGATIVE (NEGATIVE) 05/23/24 05/23/24 05/23/24 Range/Units 09:55 09:55 09:31 WBC 4.1 (3.98-10.04) x10^3/uL RBC 4.23 (3.93-5.22) x10^6/uL Hgb 11.8 (11.2-15.7) g/dL Hct 37.1 (34.1-44.9) % MCV 87.7 (79.4-94.8) fL MCH 27.9 (25.6-32.2) pg MCHC 31.8 L (32.2-35.5) g/dL RDW 14.7 H (11.7-14.4) % Plt Count 186 (182-369) x10^3/uL MPV 11.8 (9.4-12.3) fL Gran % 60.2 (34.0-71.1) % Immature Gran % (Auto) 0.5 H (0.001-0.429) % Nucleat RBC Rel Count 0.0 (0.00-0.2) % Eos # (Auto) 0.03 L (0.04-0.36) x10^3/uL Immature Gran # (Auto) 0.02 (0.001-0.031) x10^3u/L Absolute Lymphs (auto) 0.95 L (1.18-3.74) x10^3/uL Absolute Monos (auto) 0.61 (0.24-0.86) x10^3/uL Absolute Nucleated RBC 0.00 (0.00-0.012) x10^3u/L Lymphocytes % 23.2 (19.3-51.7) % Monocytes % 14.9 H (4.7-12.5) % Eosinophils % 0.7 (0.7-5.8) % Basophils % 0.5 (0.1-1.2) % Absolute Granulocytes 2.46 (1.56-6.13) x10^3/uL Basophils # 0.02 (0.01-0.08) x10^3/uL PT 14.4 H (9.4-12.5) SECONDS INR 1.35 (0.8-3.0) APTT 28.4 (25.1-36.5) SECONDS D-Dimer 0.45 (0.0-0.50) mg/L pO2/FiO2 Ratio % VBG pH (7.32-7.42) VBG pCO2 at Pat Temp (42-55) mm/Hg VBG pO2 at Pat Temp (25-40) mm/Hg VBG HCO3 (22-28) meq/L VBG O2 Sat (Pratik) (95-100) VBG Base Excess (-2.0-2.0) VBG Hemoglobin VBG Carboxyhemoglobin (0.0-6.9) % T HGB POC Potassium (3.5-5.1) Sodium 142 (135-145) mmol/L Potassium 3.5 (3.5-5.1) mmol/L Chloride 105 (98-107) mmol/L Carbon Dioxide 28 (22-30) mmol/L Anion Gap 12.8 (5-15) MEQ/L BUN 7 (7-17) mg/dL Creatinine 0.65 (0.52-1.04) mg/dL Estimated GFR 92.9 ML/MIN Glucose 94 (74-106) mg/dL Calcium 8.6 (8.4-10.2) mg/dL Magnesium 1.9 (1.6-2.3) mg/dL Total Bilirubin 0.80 (0.2-1.3) mg/dL AST 30 (14-36) U/L ALT 20 (0-35) U/L Alkaline Phosphatase 99 (38-126) U/L Troponin I (0.000-0.033) ng/mL NT-Pro-B Natriuret Pep 1220 (<300) pg/mL Serum Total Protein 6.1 L (6.3-8.2) g/dL Albumin 3.7 (3.5-5.0) g/dL Amylase 43 (30-110) U/L Lipase 77 (23-300) U/L Influenza Type A Ag (NEGATIVE) Influenza Type B Ag (NEGATIVE) RSV (PCR) (NEGATIVE) SARS-CoV-2 (PCR) (NEGATIVE) - Progress Progress: unchanged Discussed with Dr.: Moody (Spoke with & discussed case with Dr. Dowling([id number]) - obs) Counseled pt/family regarding: lab results, diagnosis, rad results Medical Desision Making - Diagnostic Testing Diagnostic test were ordered, analyzed, and reviewed by me: Yes Radiological Interpretation: Discussed w/ radiologist - Departure Departure Disposition: Observation Clinical Impression: COPD with acute exacerbation Condition: Stable Critical Care Time: No Referrals: [facility] [Primary Care Provider] - Follow up/PCP as directed Instructions: Chronic Obstructive Pulmonary Disease
[2024-05-23 10:01] LABS: VBG BASE EXCESS 3.7 (-2.0-2.0); VBG CARBOXYHEMOGLOBIN 3.8 % T HGB (0.0-6.9); VBG HCO3- 28.5 meq/L (22-28); VBG HEMOGLOBIN 12.5; VBG O2 SATURATION 65.7 (95-100); VBG POTASSIUM 3.5 (3.5-5.1); VBG pH 7.43 (7.32-7.42)
[2024-05-23] MEDS ORDERED: MORPHINE SULFATE 2 MG INJ ONE (10:12)
[2024-05-23] MEDS ORDERED: ROCEPHIN 1 GM / 100 ML NaCl 1 GM/100 ML IVPB IV ONE (10:13)
[2024-05-23] MEDS: ROCEPHIN 1 GM / 100 ML NaCl 1 GM/100 ML IVPB IV ONE (10:15)
[2024-05-23] MEDS: MORPHINE SULFATE 2 MG INJ IV ONE (10:15)
[2024-05-23 10:17] LABS: Absolute Neutrophil Ct (ANC) 2.46 x10^3/uL (1.56-6.13); BASOPHIL % 0.5 % (0.1-1.2); Basophil (Absolute #) 0.02 x10^3/uL (0.01-0.08); Eosinophil % 0.7 % (0.7-5.8); Eosinophil (Absolute #) 0.03 x10^3/uL (0.04-0.36); Hematocrit 37.1 % (34.1-44.9); Hemoglobin 11.8 g/dL (11.2-15.7); IMMATURE GRAN # 0.02 x10^3u/L (0.001-0.031); IMMATURE GRAN % 0.5 % (0.001-0.429); Lymphocyte (Absolute #) 0.95 x10^3/uL (1.18-3.74); Lymphocytes % 23.2 % (19.3-51.7); Mean Cell Volume 87.7 fL (79.4-94.8); Mean Corpuscular Hemoglobin 27.9 pg (25.6-32.2); Mean Corpuscular Hgb Concent. 31.8 g/dL (32.2-35.5); Mean Platelet Volume 11.8 fL (9.4-12.3); Monocyte (Absolute #) 0.61 x10^3/uL (0.24-0.86); Monocytes % 14.9 % (4.7-12.5); Neutrophil % 60.2 % (34.0-71.1); Platelet Count 186 x10^3/uL (182-369); Red Blood Count 4.23 x10^6/uL (3.93-5.22); Red Cell Distribution Width 14.7 % (11.7-14.4); White Blood Count 4.1 x10^3/uL (3.98-10.04)
[2024-05-23 10:35] LABS: D-DIMER QUANTITATIVE 0.45 mg/L (0.0-0.50); INR 1.35 (0.8-3.0); PROTIME 14.4 SECONDS (9.4-12.5); PTT 28.4 SECONDS (25.1-36.5)
[2024-05-23 10:42] LABS: ALBUMIN 3.7 g/dL (3.5-5.0); ANION GAP 12.8 MEQ/L (5-15); BILIRUBIN,TOTAL 0.8 mg/dL (0.2-1.3); Calcium 8.6 mg/dL (8.4-10.2); Creatinine 1 0.65 mg/dL (0.52-1.04); EST GLOMERULAR FILTRATION RATE 92.9 ML/MIN; MAGNESIUM 1.9 mg/dL (1.6-2.3); Potassium 3.5 mmol/L (3.5-5.1); Total Protein 6.1 g/dL (6.3-8.2)
[2024-05-23 10:53] LABS: INFLUENZA A NEGATIVE (NEGATIVE); INFLUENZA B NEGATIVE (NEGATIVE); RESPIRATORY SYNCTIAL VIRUS NEGATIVE (NEGATIVE); SARS-CoV-2 Xpert Express NEGATIVE (NEGATIVE)
--- NOTE | 2024-05-23 11:09 | XRAY ---
Indication: Cough. Comparison: April 02, 2024 Portable chest unchanged again hyperinflated with stable right apical/left mid lung suture material. No focal infiltrate, consolidation, or large effusion. Heart not enlarged again with left pacemaker and left hilar calcified nodes. Bony thorax intact again with osteopenia and mild degenerative changes. Limited upper abdomen again demonstrate epigastric surgical clips. Impression: Continued nonacute hyperinflated chest with chronic features.
[2024-05-23 11:21] LABS: Appearance Clear (Clear); Bacteria None Seen /HPF (None Seen); Bilirubin Negative (Negative); Blood Negative (Negative); Epithelial Cells None Seen /HPF (None Seen); Glucose, Urine Negative (Negative); Hyaline Casts NONE SEEN /LPF (0-2); Ketones Negative (Negative); Leukocyte Esterase Negative (Negative); Nitrite Negative (Negative); Ph 6.5 (4.6-8.0); Protein,Urine Dip Negative (Negative); RBC 0-2 /HPF (0-5); Specific Gravity <=1.005 (1.005-1.030); Urobilinogen 0.2 mg/dL (0.2); WBC 0-2 /HPF (0-5)
[2024-05-23] MEDS ORDERED: Sterile H2O 10 ml IJ ONE (11:26)
[2024-05-23] MEDS ORDERED: solu-MEDROL ONE (11:26)
[2024-05-23] MEDS: solu-MEDROL 125 MG, Sterile H2O 10 ml 2 ML IV ONE (11:28)
--- NOTE | 2024-05-23 12:09 | PCM.HP ---
History of Present Illness - Chief Complaint Chief Complaint: COPD exacerbation Date: 05/23/24 History of Present Illness: is a 73 year old female with past medical history significant for cataracts, COPD, lung cancer (with the left lower lobe removed), type II diabetes, diverticulitis, pancreatitis, a pancreatic lesion, a pacemaker, and chronic morbid obesity. For the past three days, she has experienced shortness of breath, chest soreness, and a productive cough with yellow-clear phlegm. Her oxygen saturation is 94% on room air, and her ABG shows primary metabolic acidosis. The patient also reports intermittent diarrhea for the past two years but denies nausea, vomiting, fever, or abdominal pain. Her INR is subtherapeutic while on Coumadin, but her lab results are otherwise non-concerning. A chest X- ray shows continued non-acute hyperinflation with chronic features. A sputum sample will be obtained, and the patient will be started on antibiotics and steroids for a COPD exacerbation. - Review of Systems Constitutional: No Fever, No Chills Eyes: No Symptoms Ears, Nose, & Throat: No Symptoms Respiratory: Cough, Short Of Breath, Wheezing Cardiac: No Chest Pain, No Edema, No Syncope Abdominal/Gastrointestinal: No Abdominal Pain, No Nausea, No Vomiting, No Diarrhea Genitourinary Symptoms: No Dysuria Musculoskeletal: No Back Pain, No Neck Pain Skin: No Rash Neurological: No Dizziness, No Focal Weakness, No Sensory Changes Psychological: No Symptoms Endocrine: No Symptoms Hematologic/Lymphatic: No Symptoms Immunological/Allergic: No Symptoms Medications & Allergies Home Medications: Home Medication List Zolpidem Tartrate [Ambien] 10 mg PO HS 08/16/15 [History Confirmed 05/23/24] Fexofenadine HCl [Sonia Allergy] 180 mg PO HS PRN PRN 01/23/23 [History Confirmed 05/23/24] Albuterol Common Canister [Ventolin Common Canister] 2 puff IH BID 09/20/23 [History Confirmed 05/23/24] Insulin Glargine,Hum.rec.anlog [Lantus] 20 unit SQ HS 09/20/23 [History Confirmed 05/23/24] Metoprolol Succinate 50 mg PO DAILY 09/20/23 [History Confirmed 05/23/24] Furosemide [Lasix] 20 mg PO DAILY 11/21/23 [History Confirmed 05/23/24] Colesevelam HCl 625 mg PO BID 02/18/24 [History Confirmed 05/23/24] Metoprolol Succinate 25 mg Xl* [Toprol-Xl 25MG Tablets] 25 mg PO HS 02/18/24 [History Confirmed 05/23/24] Rosuvastatin Calcium [Crestor] 10 mg PO HS 02/18/24 [History Confirmed 05/23/24] Cbd Gummy 1 tab PO HS 04/02/24 [History Confirmed 05/23/24] Warfarin Sodium 5 mg PO 3XW 05/23/24 [History Confirmed 05/23/24] Warfarin Sodium 5 mg [Coumadin] 2.5 mg PO UD 05/23/24 [History Confirmed 05/23/24] Allergies/Adverse Reactions: Allergies Allergy/AdvReac Type Severity Reaction Status Date / Time clarithromycin [From Biaxin] Allergy Severe Hives Verified 05/23/24 09:41 Coconut Allergy Severe Difficulty Verified 05/23/24 09:41 Breathing green dye *RETIRED-07/03/12 Allergy Mild Swelling Verified 05/23/24 09:41 [Green Dye] red dye [Red Dye] Allergy Mild Swelling Verified 05/23/24 09:41 adhesive Allergy Rash Verified 05/23/24 09:41 cholestyramine Allergy Verified 05/23/24 09:41 iodine Allergy Wheezing Verified 05/23/24 09:41 latex Allergy Rash Verified 05/23/24 09:41 nitrofurantoin Allergy Verified 05/23/24 09:41 [From Macrobid] levofloxacin [From Levaquin] AdvReac Mild Joint Aches Verified 05/23/24 09:41 - Past Medical History Past Medical History: Yes Neurological History: Other ENT History: Cataracts Cardiac History: Other Respiratory History: COPD, Lung Cancer Endocrine Medical History: Diabetes Type II Musculoskelatal History: Osteoarthritis GI Medical History: Diverticulitis, Gallbladder Disease, Pancreatitis History: No Pertinent History Pyscho-Social History: No Pertinent History Reproductive Disorders: No Pertinent History Comment: 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 PANCREATIC LESION. UPPER RIGHT AND LOWER LEFT LOBE REMOVED FOR LUNG CA. PACEMAKER. - Past Surgical History Past Surgical History: Yes Neuro Surgical History: No Pertinent History Cardiac History: Pacemaker Respiratory Surgery: Lobectomy GI Surgical History: Appendectomy, Cholecystectomy, Hernia Repair Genitourinary Surgical Hx: No Pertinent History Musculskeletal Surgical Hx: No Pertinent History, Joint Replacement, Orthopedic Surgery Female Surgical History: Hysterectomy, Other Other Surgical History: tonsilectomy, carpal tunnel, trigger finger X3, BLADDER SLING, colorectal, SI fusion, left wedge resection to lungs July 16, 2020, PACEMAKER 2022 - Social History Smoking Status: Former smoker How long have you smoked: 20 years Exposure to second hand smoke: No Alcohol: None Drug Use: none - Social Determinants of Health Will the patient participate in the screening: Yes Do you worry about a steady place to live?: No Do you have any problems with any of the following?: No known problems In the past 12 months,have you had to go without utilities?: No Have you or anyone in your house had to go without enough: No Transportation Issues: No Has anyone in your support network made you feel unsafe?: No Does the patient want assistance with any of the above?: No - Physical Exam Vital Signs: Vital Signs - 24 hr Temp Pulse Resp BP BP Pulse Ox 05/23/24 11:00 62 27 H 140/66 94 L 05/23/24 10:39 62 20 122/65 94 L 05/23/24 10:38 63 5 L 97 05/23/24 10:10 61 19 98 05/23/24 10:01 65 13 96 05/23/24 09:33 62 20 97 05/23/24 09:31 60 13 148/82 97 05/23/24 09:25 98.6 F 64 16 139/96 97 General Appearance: no apparent distress, alert, obese Neurologic Exam: alert, 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, cooperative, normal mood/affect, nml cerebellar function, nml station & gait, sensation nml, No motor deficits Eye Exam: PERRL/EOMI, eyes nml inspection Ears, Nose, Throat Exam: normal ENT inspection, TMs normal, pharynx normal, moist mucous membranes Neck Exam: normal inspection, non-tender, supple, full range of motion Respiratory Exam: wheezing, No respiratory distress Cardiovascular Exam: regular rate/rhythm, normal heart sounds, normal peripheral pulses Gastrointestinal/Abdomen Exam: soft, normal bowel sounds, No tenderness, No mass Back Exam: normal inspection, normal range of motion, No CVA tenderness, No vertebral tenderness Extremity Exam: normal inspection, normal range of motion, pelvis stable Skin Exam: normal color, warm, dry, No rash Lymphatic Exam: No adenopathy Results - Labs Lab/Micro Results: Lab Results-Last 24 Hours 05/23/24 05/23/24 05/23/24 Range/Units 09:31 09:55 09:55 WBC 4.1 (3.98-10.04) x10^3/uL RBC 4.23 (3.93-5.22) x10^6/uL Hgb 11.8 (11.2-15.7) g/dL Hct 37.1 (34.1-44.9) % MCV 87.7 (79.4-94.8) fL MCH 27.9 (25.6-32.2) pg MCHC 31.8 L (32.2-35.5) g/dL RDW 14.7 H (11.7-14.4) % Plt Count 186 (182-369) x10^3/uL MPV 11.8 (9.4-12.3) fL Gran % 60.2 (34.0-71.1) % Immature Gran % (Auto) 0.5 H (0.001-0.429) % Nucleat RBC Rel Count 0.0 (0.00-0.2) % Eos # (Auto) 0.03 L (0.04-0.36) x10^3/uL Immature Gran # (Auto) 0.02 (0.001-0.031) x10^3u/L Absolute Lymphs (auto) 0.95 L (1.18-3.74) x10^3/uL Absolute Monos (auto) 0.61 (0.24-0.86) x10^3/uL Absolute Nucleated RBC 0.00 (0.00-0.012) x10^3u/L Lymphocytes % 23.2 (19.3-51.7) % Monocytes % 14.9 H (4.7-12.5) % Eosinophils % 0.7 (0.7-5.8) % Basophils % 0.5 (0.1-1.2) % Absolute Granulocytes 2.46 (1.56-6.13) x10^3/uL Basophils # 0.02 (0.01-0.08) x10^3/uL PT 14.4 H (9.4-12.5) SECONDS INR 1.35 (0.8-3.0) APTT 28.4 (25.1-36.5) SECONDS D-Dimer 0.45 (0.0-0.50) mg/L pO2/FiO2 Ratio % VBG pH (7.32-7.42) VBG pCO2 at Pat Temp (42-55) mm/Hg VBG pO2 at Pat Temp (25-40) mm/Hg VBG HCO3 (22-28) meq/L VBG O2 Sat (Pratik) (95-100) VBG Base Excess (-2.0-2.0) VBG Hemoglobin VBG Carboxyhemoglobin (0.0-6.9) % T HGB POC Potassium (3.5-5.1) Sodium 142 (135-145) mmol/L Potassium 3.5 (3.5-5.1) mmol/L Chloride 105 (98-107) mmol/L Carbon Dioxide 28 (22-30) mmol/L Anion Gap 12.8 (5-15) MEQ/L BUN 7 (7-17) mg/dL Creatinine 0.65 (0.52-1.04) mg/dL Estimated GFR 92.9 ML/MIN Glucose 94 (74-106) mg/dL Calcium 8.6 (8.4-10.2) mg/dL Magnesium 1.9 (1.6-2.3) mg/dL Total Bilirubin 0.80 (0.2-1.3) mg/dL AST 30 (14-36) U/L ALT 20 (0-35) U/L Alkaline Phosphatase 99 (38-126) U/L Troponin I (0.000-0.033) ng/mL NT-Pro-B Natriuret Pep 1220 (<300) pg/mL Serum Total Protein 6.1 L (6.3-8.2) g/dL Albumin 3.7 (3.5-5.0) g/dL Amylase 43 (30-110) U/L Lipase 77 (23-300) U/L Urine Color (Yellow) Urine Appearance (Clear) Urine pH (4.6-8.0) Ur Specific [place] (1.005-1.030) Urine Protein (Negative) Urine Glucose (UA) (Negative) mg/dL Urine Ketones (Negative) Urine Blood (Negative) Urine Nitrite (Negative) Urine Bilirubin (Negative) Urine Urobilinogen (0.2) mg/dL Ur Leukocyte Esterase (Negative) U Hyaline Cast (Auto) (0-2) /LPF Urine Microscopic RBC (0-5) /HPF Urine Microscopic WBC (0-5) /HPF Ur Epithelial Cells (None Seen) /HPF Urine Bacteria (None Seen) /HPF Urine Culture Reflexed (NO) Influenza Type A Ag (NEGATIVE) Influenza Type B Ag (NEGATIVE) RSV (PCR) (NEGATIVE) SARS-CoV-2 (PCR) (NEGATIVE) 05/23/24 05/23/24 05/23/24 Range/Units 09:55 09:59 10:04 WBC (3.98-10.04) x10^3/uL RBC (3.93-5.22) x10^6/uL Hgb (11.2-15.7) g/dL Hct (34.1-44.9) % MCV (79.4-94.8) fL MCH (25.6-32.2) pg MCHC (32.2-35.5) g/dL RDW (11.7-14.4) % Plt Count (182-369) x10^3/uL MPV (9.4-12.3) fL Gran % (34.0-71.1) % Immature Gran % (Auto) (0.001-0.429) % Nucleat RBC Rel Count (0.00-0.2) % Eos # (Auto) (0.04-0.36) x10^3/uL Immature Gran # (Auto) (0.001-0.031) x10^3u/L Absolute Lymphs (auto) (1.18-3.74) x10^3/uL Absolute Monos (auto) (0.24-0.86) x10^3/uL Absolute Nucleated RBC (0.00-0.012) x10^3u/L Lymphocytes % (19.3-51.7) % Monocytes % (4.7-12.5) % Eosinophils % (0.7-5.8) % Basophils % (0.1-1.2) % Absolute Granulocytes (1.56-6.13) x10^3/uL Basophils # (0.01-0.08) x10^3/uL PT (9.4-12.5) SECONDS INR (0.8-3.0) APTT (25.1-36.5) SECONDS D-Dimer (0.0-0.50) mg/L pO2/FiO2 Ratio 21.0 % VBG pH 7.43 H (7.32-7.42) VBG pCO2 at Pat Temp 43 (42-55) mm/Hg VBG pO2 at Pat Temp 38 (25-40) mm/Hg VBG HCO3 28.5 H (22-28) meq/L VBG O2 Sat (Pratik) 65.7 L (95-100) VBG Base Excess 3.7 H (-2.0-2.0) VBG Hemoglobin 12.5 VBG Carboxyhemoglobin 3.8 (0.0-6.9) % T HGB POC Potassium 3.5 (3.5-5.1) Sodium (135-145) mmol/L Potassium (3.5-5.1) mmol/L Chloride (98-107) mmol/L Carbon Dioxide (22-30) mmol/L Anion Gap (5-15) MEQ/L BUN (7-17) mg/dL Creatinine (0.52-1.04) mg/dL Estimated GFR ML/MIN Glucose (74-106) mg/dL Calcium (8.4-10.2) mg/dL Magnesium (1.6-2.3) mg/dL Total Bilirubin (0.2-1.3) mg/dL AST (14-36) U/L ALT (0-35) U/L Alkaline Phosphatase (38-126) U/L Troponin I < 0.012 (0.000-0.033) ng/mL NT-Pro-B Natriuret Pep (<300) pg/mL Serum Total Protein (6.3-8.2) g/dL Albumin (3.5-5.0) g/dL Amylase (30-110) U/L Lipase (23-300) U/L Urine Color (Yellow) Urine Appearance (Clear) Urine pH (4.6-8.0) Ur Specific [place] (1.005-1.030) Urine Protein (Negative) Urine Glucose (UA) (Negative) mg/dL Urine Ketones (Negative) Urine Blood (Negative) Urine Nitrite (Negative) Urine Bilirubin (Negative) Urine Urobilinogen (0.2) mg/dL Ur Leukocyte Esterase (Negative) U Hyaline Cast (Auto) (0-2) /LPF Urine Microscopic RBC (0-5) /HPF Urine Microscopic WBC (0-5) /HPF Ur Epithelial Cells (None Seen) /HPF Urine Bacteria (None Seen) /HPF Urine Culture Reflexed (NO) Influenza Type A Ag NEGATIVE (NEGATIVE) Influenza Type B Ag NEGATIVE (NEGATIVE) RSV (PCR) NEGATIVE (NEGATIVE) SARS-CoV-2 (PCR) NEGATIVE (NEGATIVE) 05/23/24 Range/Units 10:25 WBC (3.98-10.04) x10^3/uL RBC (3.93-5.22) x10^6/uL Hgb (11.2-15.7) g/dL Hct (34.1-44.9) % MCV (79.4-94.8) fL MCH (25.6-32.2) pg MCHC (32.2-35.5) g/dL RDW (11.7-14.4) % Plt Count (182-369) x10^3/uL MPV (9.4-12.3) fL Gran % (34.0-71.1) % Immature Gran % (Auto) (0.001-0.429) % Nucleat RBC Rel Count (0.00-0.2) % Eos # (Auto) (0.04-0.36) x10^3/uL Immature Gran # (Auto) (0.001-0.031) x10^3u/L Absolute Lymphs (auto) (1.18-3.74) x10^3/uL Absolute Monos (auto) (0.24-0.86) x10^3/uL Absolute Nucleated RBC (0.00-0.012) x10^3u/L Lymphocytes % (19.3-51.7) % Monocytes % (4.7-12.5) % Eosinophils % (0.7-5.8) % Basophils % (0.1-1.2) % Absolute Granulocytes (1.56-6.13) x10^3/uL Basophils # (0.01-0.08) x10^3/uL PT (9.4-12.5) SECONDS INR (0.8-3.0) APTT (25.1-36.5) SECONDS D-Dimer (0.0-0.50) mg/L pO2/FiO2 Ratio % VBG pH (7.32-7.42) VBG pCO2 at Pat Temp (42-55) mm/Hg VBG pO2 at Pat Temp (25-40) mm/Hg VBG HCO3 (22-28) meq/L VBG O2 Sat (Pratik) (95-100) VBG Base Excess (-2.0-2.0) VBG Hemoglobin VBG Carboxyhemoglobin (0.0-6.9) % T HGB POC Potassium (3.5-5.1) Sodium (135-145) mmol/L Potassium (3.5-5.1) mmol/L Chloride (98-107) mmol/L Carbon Dioxide (22-30) mmol/L Anion Gap (5-15) MEQ/L BUN (7-17) mg/dL Creatinine (0.52-1.04) mg/dL Estimated GFR ML/MIN Glucose (74-106) mg/dL Calcium (8.4-10.2) mg/dL Magnesium (1.6-2.3) mg/dL Total Bilirubin (0.2-1.3) mg/dL AST (14-36) U/L ALT (0-35) U/L Alkaline Phosphatase (38-126) U/L Troponin I (0.000-0.033) ng/mL NT-Pro-B Natriuret Pep (<300) pg/mL Serum Total Protein (6.3-8.2) g/dL Albumin (3.5-5.0) g/dL Amylase (30-110) U/L Lipase (23-300) U/L Urine Color Yellow (Yellow) Urine Appearance Clear (Clear) Urine pH 6.5 (4.6-8.0) Ur Specific [place] <=1.005 (1.005-1.030) Urine Protein Negative (Negative) Urine Glucose (UA) Negative (Negative) mg/dL Urine Ketones Negative (Negative) Urine Blood Negative (Negative) Urine Nitrite Negative (Negative) Urine Bilirubin Negative (Negative) Urine Urobilinogen 0.2 (0.2) mg/dL Ur Leukocyte Esterase Negative (Negative) U Hyaline Cast (Auto) NONE SEEN (0-2) /LPF Urine Microscopic RBC 0-2 (0-5) /HPF Urine Microscopic WBC 0-2 (0-5) /HPF Ur Epithelial Cells None Seen (None Seen) /HPF Urine Bacteria None Seen (None Seen) /HPF Urine Culture Reflexed NO (NO) Influenza Type A Ag (NEGATIVE) Influenza Type B Ag (NEGATIVE) RSV (PCR) (NEGATIVE) SARS-CoV-2 (PCR) (NEGATIVE) - Radiology Impressions Radiology Exams & Impressions: Radiology Procedures Category Date Time Status CHEST 2 VIEWS (PA AND LAT) Stat Exams 05/23/24 09:32 Completed - Other Procedures and Tests Respiratory Therapy 05/23/24 12:01 EKG REPEAT IN AM Oxygen Nasal Cannula 2 lpm Respiratory Therapy Consult ONCE Assessment/Plan (1) COPD with exacerbation Current Visit: Yes Status: Acute Assessment & Plan: - Antibiotics, steroids - duonebs - RA 94% - tessalon - sinus meds - see below - CXR negative for acute concern - CBC, CMP reviewed- non-concerning - tele - BC x2 - Sputum culture Code(s): J44.1 - CHRONIC OBSTRUCTIVE PULMONARY DISEASE W (ACUTE) EXACERBATION (2) Sinus congestion Current Visit: Yes Status: Acute Assessment & Plan: - Flonase - Clartin (3) HTN (hypertension) Current Visit: No Status: Chronic Assessment & Plan: - BP controlled - Cont home meds Code(s): I10 - ESSENTIAL (PRIMARY) HYPERTENSION (4) Hyperlipidemia Current Visit: No Status: Chronic Assessment & Plan: - Continue statin Code(s): E78.5 - HYPERLIPIDEMIA, UNSPECIFIED (5) Type 2 diabetes mellitus Current Visit: No Status: Chronic Qualifiers: Diabetes mellitus residential insulin use: 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 Diabetes mellitus complication status: without complication Qualified Code(s): E11.9 - Type 2 diabetes mellitus without complications; Z79.4 - 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 insulin Assessment & Plan: - Cont lantus 20 units at HS - A1C 6.17, 04/02/24- controlled - Humalog S/S - Accuchecks ac/hs - Carb consistent diet (6) Supratherapeutic INR Current Visit: No Status: Acute Assessment & Plan: - INR 1.5 - pharmacy to manage coumadin Code(s): R79.1 - ABNORMAL COAGULATION PROFILE (7) GERD (gastroesophageal reflux disease) Current Visit: No Status: Chronic Assessment & Plan: - protonix Code(s): K21.9 - GASTRO-ESOPHAGEAL REFLUX DISEASE WITHOUT ESOPHAGITIS (8) Obesity, Class III, BMI 40-49.9 (morbid obesity) Current Visit: No Status: Chronic Assessment & Plan: - Advised ADA diet and exercise control Code(s): E66.01 - MORBID (SEVERE) OBESITY DUE TO EXCESS CALORIES (9) Hx of cancer of lung Current Visit: No Status: Chronic Assessment & Plan: - noted VTE: Coumadin PPI: Protonix Next of Kin: Ninfa- daughter, [phone] D/C plan: 1-2 days Code status: Full Code(s): Z85.118 - PERSONAL HISTORY OF MALIGNANT NEOPLASM OF BRONCHUS AND LUNG
[2024-05-23] MEDS ORDERED: NON-FORMULARY ITEM (Fexofenadine Hcl [Allegra Allergy] 180 MG Tablet) PO PRN (12:15)
[2024-05-23] MEDS ORDERED: NON-FORMULARY ITEM (Warfarin Sodium [Warfarin Sodium] 2.5 MG Tablet) PO SCH (12:15)
[2024-05-23] MEDS: PHARMACY RENAL DOSING MC ONE (12:20)
[2024-05-23] MEDS ORDERED: MEDICATION INTERVENTION MC SCH ×2 (12:45)
[2024-05-23] MEDS: Sodium Chloride 0.9% 1000 ML 1,000 ML IV SCH (12:45)
[2024-05-23] MEDS: PROVENTIL 2.5 MG/3 ML NEB IH SCH (12:53)
[2024-05-23] MEDS: CLARITIN 10 MG PO SCH (12:57)
[2024-05-23] MEDS: TYLENOL 325 MG PO PRN (14:50)
[2024-05-23] MEDS: Tessalon Perles 100 MG PO PRN (14:52)
[2024-05-23] MEDS: COUMADIN PO ONE (17:18)
[2024-05-23] MEDS: Reglan 10 MG PO ONE (17:19)
[2024-05-23] MEDS: ZOCOR 20MG PO SCH (20:54)
[2024-05-23] MEDS: Toprol-Xl 25MG Tablets PO SCH (20:54)
[2024-05-23] MEDS: solu-MEDROL 40 MG, Sterile H2O 10 ml 1 ML IV SCH (20:54)
[2024-05-23] MEDS: HUMALOG SQ PRN (21:10)
[2024-05-23] MEDS: Lantus Insulin SQ SCH (21:10)
[2024-05-23] MEDS ORDERED: NON-FORMULARY ITEM (Rosuvastatin Calcium [Crestor] 10 MG Tablet) PO SCH (22:00)
[2024-05-23] MEDS ORDERED: COLESEVELAM HCL 625 MG PO SCH (22:00)
[2024-05-23] MEDS ORDERED: CBD GUMMY PO SCH (22:00)
[2024-05-23] MEDS: Ambien 10 MG PO SCH (22:56)
[2024-05-23] MEDS: Robitussin-Dm Syrup PO PRN (23:06)
[2024-05-24 05:45] LABS: Absolute Neutrophil Ct (ANC) 3.43 x10^3/uL (1.56-6.13); Basophil (Absolute #) 0 x10^3/uL (0.01-0.08); Eosinophil (Absolute #) 0 x10^3/uL (0.04-0.36); Hematocrit 36.1 % (34.1-44.9); Hemoglobin 11.5 g/dL (11.2-15.7); IMMATURE GRAN # 0.02 x10^3u/L (0.001-0.031); IMMATURE GRAN % 0.5 % (0.001-0.429); Lymphocyte (Absolute #) 0.63 x10^3/uL (1.18-3.74); Lymphocytes % 14.7 % (19.3-51.7); Mean Cell Volume 87.8 fL (79.4-94.8); Mean Corpuscular Hgb Concent. 31.9 g/dL (32.2-35.5); Mean Platelet Volume 11.6 fL (9.4-12.3); Monocytes % 4.7 % (4.7-12.5); Neutrophil % 80.1 % (34.0-71.1); Platelet Count 172 x10^3/uL (182-369); Red Blood Count 4.11 x10^6/uL (3.93-5.22); Red Cell Distribution Width 14.8 % (11.7-14.4); White Blood Count 4.3 x10^3/uL (3.98-10.04)
[2024-05-24 05:57] LABS: INR 1.51 (0.8-3.0)
[2024-05-24 06:00] LABS: BILIRUBIN,TOTAL 0.6 mg/dL (0.2-1.3); Calcium 8.4 mg/dL (8.4-10.2); Creatinine 1 0.61 mg/dL (0.52-1.04); EST GLOMERULAR FILTRATION RATE 94.3 ML/MIN; MAGNESIUM 2.1 mg/dL (1.6-2.3); Total Protein 6.6 g/dL (6.3-8.2)
[2024-05-24 08:01] VITALS: TEMP 97.1
--- NOTE | 2024-05-24 08:45 | PCM.DS ---
Discharge Summary Date of Admission: 05/23/24 11:57 Date of Discharge: 05/24/24 Admitting Physician: KIERAN GRACE MD Primary Care Provider: [facility] Allergies Allergies clarithromycin [From Biaxin] Allergy (Severe, Verified 05/23/24 09:41) Hives Coconut Allergy (Severe, Verified 05/23/24 09:41) Difficulty Breathing green dye *RETIRED-07/03/12 [Green Dye] Allergy (Mild, Verified 05/23/24 09:41) Swelling swelling ears red dye [Red Dye] Allergy (Mild, Verified 05/23/24 09:41) Swelling ears swell adhesive Allergy (Verified 05/23/24 09:41) Rash cholestyramine Allergy (Verified 05/23/24 09:41) iodine Allergy (Verified 05/23/24 09:41) Wheezing latex Allergy (Verified 05/23/24 09:41) Rash nitrofurantoin [From Macrobid] Allergy (Verified 05/23/24 09:41) levofloxacin [From Levaquin] Adverse Reaction (Mild, Verified 05/23/24 09:41) [facility] Summary - Hospital Course Hospital Course: 05/23/24 is a 73 year old female with past medical history significant for cataracts, COPD, lung cancer (with the left lower lobe removed), type II diabetes, diverticulitis, pancreatitis, a pancreatic lesion, a pacemaker, and chronic morbid obesity. For the past three days, she has experienced shortness of breath, chest soreness, and a productive cough with yellow-clear phlegm. Her oxygen saturation is 94% on room air, and her ABG shows primary metabolic acidosis. The patient also reports intermittent diarrhea for the past two years but denies nausea, vomiting, fever, or abdominal pain. Her INR is subtherapeutic while on Coumadin, but her lab results are otherwise non-concerning. A chest X- ray shows continued non-acute hyperinflation with chronic features. A sputum sample will be obtained, and the patient will be started on antibiotics and steroids for a COPD exacerbation. 05/24/24 Pt resting in bed. She is wanting to d/c today. She states she feels better. She is asking to d/c with RX for duonebs, nicolas, tessalon. Explained Nicolas is OTC and she still wants an RX. Will also continue antibiotic and steroid for COPD exacerbation. She is RA 94%. Lung sounds clear today and soughing greatly reduced. She denies CP, SOB, abd. pain, N/V/D. - Vitals & Intake/Output Vital Signs: Vital Signs Temperature 97.1 F 05/24/24 08:00 Pulse Rate 69 05/24/24 08:00 Respiratory Rate 19 05/24/24 08:00 Blood Pressure 123/78 05/24/24 08:00 O2 Sat by Pulse Oximetry 94 L 05/24/24 08:00 Intake & Output: Intake & Output 05/21/24 05/22/24 05/23/24 05/24/24 11:59 11:59 11:59 11:59 Intake Total 480 Balance 480 Weight 115.9 kg 112.8 kg - Lab Result Diagrams: 05/24/24 05:38 05/24/24 05:38 Lab Results-Last 24 Hrs: Lab Results-Last 24 Hours 05/23/24 05/23/24 05/23/24 Range/Units 09:31 09:55 09:55 WBC 4.1 (3.98-10.04) x10^3/uL RBC 4.23 (3.93-5.22) x10^6/uL Hgb 11.8 (11.2-15.7) g/dL Hct 37.1 (34.1-44.9) % MCV 87.7 (79.4-94.8) fL MCH 27.9 (25.6-32.2) pg MCHC 31.8 L (32.2-35.5) g/dL RDW 14.7 H (11.7-14.4) % Plt Count 186 (182-369) x10^3/uL MPV 11.8 (9.4-12.3) fL Gran % 60.2 (34.0-71.1) % Immature Gran % (Auto) 0.5 H (0.001-0.429) % Nucleat RBC Rel Count 0.0 (0.00-0.2) % Eos # (Auto) 0.03 L (0.04-0.36) x10^3/uL Immature Gran # (Auto) 0.02 (0.001-0.031) x10^3u/L Absolute Lymphs (auto) 0.95 L (1.18-3.74) x10^3/uL Absolute Monos (auto) 0.61 (0.24-0.86) x10^3/uL Absolute Nucleated RBC 0.00 (0.00-0.012) x10^3u/L Lymphocytes % 23.2 (19.3-51.7) % Monocytes % 14.9 H (4.7-12.5) % Eosinophils % 0.7 (0.7-5.8) % Basophils % 0.5 (0.1-1.2) % Absolute Granulocytes 2.46 (1.56-6.13) x10^3/uL Basophils # 0.02 (0.01-0.08) x10^3/uL PT 14.4 H (9.4-12.5) SECONDS INR 1.35 (0.8-3.0) APTT 28.4 (25.1-36.5) SECONDS D-Dimer 0.45 (0.0-0.50) mg/L pO2/FiO2 Ratio % VBG pH (7.32-7.42) VBG pCO2 at Pat Temp (42-55) mm/Hg VBG pO2 at Pat Temp (25-40) mm/Hg VBG HCO3 (22-28) meq/L VBG O2 Sat (Pratik) (95-100) VBG Base Excess (-2.0-2.0) VBG Hemoglobin VBG Carboxyhemoglobin (0.0-6.9) % T HGB POC Potassium (3.5-5.1) Sodium 142 (135-145) mmol/L Potassium 3.5 (3.5-5.1) mmol/L Chloride 105 (98-107) mmol/L Carbon Dioxide 28 (22-30) mmol/L Anion Gap 12.8 (5-15) MEQ/L BUN 7 (7-17) mg/dL Creatinine 0.65 (0.52-1.04) mg/dL Estimated GFR 92.9 ML/MIN Glucose 94 (74-106) mg/dL POC Glucometer (74 to 106) mg/dL Calcium 8.6 (8.4-10.2) mg/dL Magnesium 1.9 (1.6-2.3) mg/dL Total Bilirubin 0.80 (0.2-1.3) mg/dL AST 30 (14-36) U/L ALT 20 (0-35) U/L Alkaline Phosphatase 99 (38-126) U/L Troponin I (0.000-0.033) ng/mL NT-Pro-B Natriuret Pep 1220 (<300) pg/mL Serum Total Protein 6.1 L (6.3-8.2) g/dL Albumin 3.7 (3.5-5.0) g/dL Amylase 43 (30-110) U/L Lipase 77 (23-300) U/L Urine Color (Yellow) Urine Appearance (Clear) Urine pH (4.6-8.0) Ur Specific [place] (1.005-1.030) Urine Protein (Negative) Urine Glucose (UA) (Negative) mg/dL Urine Ketones (Negative) Urine Blood (Negative) Urine Nitrite (Negative) Urine Bilirubin (Negative) Urine Urobilinogen (0.2) mg/dL Ur Leukocyte Esterase (Negative) U Hyaline Cast (Auto) (0-2) /LPF Urine Microscopic RBC (0-5) /HPF Urine Microscopic WBC (0-5) /HPF Ur Epithelial Cells (None Seen) /HPF Urine Bacteria (None Seen) /HPF Urine Culture Reflexed (NO) Influenza Type A Ag (NEGATIVE) Influenza Type B Ag (NEGATIVE) RSV (PCR) (NEGATIVE) SARS-CoV-2 (PCR) (NEGATIVE) 05/23/24 05/23/24 05/23/24 Range/Units 09:55 09:59 10:04 WBC (3.98-10.04) x10^3/uL RBC (3.93-5.22) x10^6/uL Hgb (11.2-15.7) g/dL Hct (34.1-44.9) % MCV (79.4-94.8) fL MCH (25.6-32.2) pg MCHC (32.2-35.5) g/dL RDW (11.7-14.4) % Plt Count (182-369) x10^3/uL MPV (9.4-12.3) fL Gran % (34.0-71.1) % Immature Gran % (Auto) (0.001-0.429) % Nucleat RBC Rel Count (0.00-0.2) % Eos # (Auto) (0.04-0.36) x10^3/uL Immature Gran # (Auto) (0.001-0.031) x10^3u/L Absolute Lymphs (auto) (1.18-3.74) x10^3/uL Absolute Monos (auto) (0.24-0.86) x10^3/uL Absolute Nucleated RBC (0.00-0.012) x10^3u/L Lymphocytes % (19.3-51.7) % Monocytes % (4.7-12.5) % Eosinophils % (0.7-5.8) % Basophils % (0.1-1.2) % Absolute Granulocytes (1.56-6.13) x10^3/uL Basophils # (0.01-0.08) x10^3/uL PT (9.4-12.5) SECONDS INR (0.8-3.0) APTT (25.1-36.5) SECONDS D-Dimer (0.0-0.50) mg/L pO2/FiO2 Ratio 21.0 % VBG pH 7.43 H (7.32-7.42) VBG pCO2 at Pat Temp 43 (42-55) mm/Hg VBG pO2 at Pat Temp 38 (25-40) mm/Hg VBG HCO3 28.5 H (22-28) meq/L VBG O2 Sat (Pratik) 65.7 L (95-100) VBG Base Excess 3.7 H (-2.0-2.0) VBG Hemoglobin 12.5 VBG Carboxyhemoglobin 3.8 (0.0-6.9) % T HGB POC Potassium 3.5 (3.5-5.1) Sodium (135-145) mmol/L Potassium (3.5-5.1) mmol/L Chloride (98-107) mmol/L Carbon Dioxide (22-30) mmol/L Anion Gap (5-15) MEQ/L BUN (7-17) mg/dL Creatinine (0.52-1.04) mg/dL Estimated GFR ML/MIN Glucose (74-106) mg/dL POC Glucometer (74 to 106) mg/dL Calcium (8.4-10.2) mg/dL Magnesium (1.6-2.3) mg/dL Total Bilirubin (0.2-1.3) mg/dL AST (14-36) U/L ALT (0-35) U/L Alkaline Phosphatase (38-126) U/L Troponin I < 0.012 (0.000-0.033) ng/mL NT-Pro-B Natriuret Pep (<300) pg/mL Serum Total Protein (6.3-8.2) g/dL Albumin (3.5-5.0) g/dL Amylase (30-110) U/L Lipase (23-300) U/L Urine Color (Yellow) Urine Appearance (Clear) Urine pH (4.6-8.0) Ur Specific [place] (1.005-1.030) Urine Protein (Negative) Urine Glucose (UA) (Negative) mg/dL Urine Ketones (Negative) Urine Blood (Negative) Urine Nitrite (Negative) Urine Bilirubin (Negative) Urine Urobilinogen (0.2) mg/dL Ur Leukocyte Esterase (Negative) U Hyaline Cast (Auto) (0-2) /LPF Urine Microscopic RBC (0-5) /HPF Urine Microscopic WBC (0-5) /HPF Ur Epithelial Cells (None Seen) /HPF Urine Bacteria (None Seen) /HPF Urine Culture Reflexed (NO) Influenza Type A Ag NEGATIVE (NEGATIVE) Influenza Type B Ag NEGATIVE (NEGATIVE) RSV (PCR) NEGATIVE (NEGATIVE) SARS-CoV-2 (PCR) NEGATIVE (NEGATIVE) 05/23/24 05/23/24 05/23/24 Range/Units 10:25 12:45 16:36 WBC (3.98-10.04) x10^3/uL RBC (3.93-5.22) x10^6/uL Hgb (11.2-15.7) g/dL Hct (34.1-44.9) % MCV (79.4-94.8) fL MCH (25.6-32.2) pg MCHC (32.2-35.5) g/dL RDW (11.7-14.4) % Plt Count (182-369) x10^3/uL MPV (9.4-12.3) fL Gran % (34.0-71.1) % Immature Gran % (Auto) (0.001-0.429) % Nucleat RBC Rel Count (0.00-0.2) % Eos # (Auto) (0.04-0.36) x10^3/uL Immature Gran # (Auto) (0.001-0.031) x10^3u/L Absolute Lymphs (auto) (1.18-3.74) x10^3/uL Absolute Monos (auto) (0.24-0.86) x10^3/uL Absolute Nucleated RBC (0.00-0.012) x10^3u/L Lymphocytes % (19.3-51.7) % Monocytes % (4.7-12.5) % Eosinophils % (0.7-5.8) % Basophils % (0.1-1.2) % Absolute Granulocytes (1.56-6.13) x10^3/uL Basophils # (0.01-0.08) x10^3/uL PT (9.4-12.5) SECONDS INR (0.8-3.0) APTT (25.1-36.5) SECONDS D-Dimer (0.0-0.50) mg/L pO2/FiO2 Ratio % VBG pH (7.32-7.42) VBG pCO2 at Pat Temp (42-55) mm/Hg VBG pO2 at Pat Temp (25-40) mm/Hg VBG HCO3 (22-28) meq/L VBG O2 Sat (Pratik) (95-100) VBG Base Excess (-2.0-2.0) VBG Hemoglobin VBG Carboxyhemoglobin (0.0-6.9) % T HGB POC Potassium (3.5-5.1) Sodium (135-145) mmol/L Potassium (3.5-5.1) mmol/L Chloride (98-107) mmol/L Carbon Dioxide (22-30) mmol/L Anion Gap (5-15) MEQ/L BUN (7-17) mg/dL Creatinine (0.52-1.04) mg/dL Estimated GFR ML/MIN Glucose (74-106) mg/dL POC Glucometer 153 H (74 to 106) mg/dL Calcium (8.4-10.2) mg/dL Magnesium (1.6-2.3) mg/dL Total Bilirubin (0.2-1.3) mg/dL AST (14-36) U/L ALT (0-35) U/L Alkaline Phosphatase (38-126) U/L Troponin I < 0.012 (0.000-0.033) ng/mL NT-Pro-B Natriuret Pep (<300) pg/mL Serum Total Protein (6.3-8.2) g/dL Albumin (3.5-5.0) g/dL Amylase (30-110) U/L Lipase (23-300) U/L Urine Color Yellow (Yellow) Urine Appearance Clear (Clear) Urine pH 6.5 (4.6-8.0) Ur Specific [place] <=1.005 (1.005-1.030) Urine Protein Negative (Negative) Urine Glucose (UA) Negative (Negative) mg/dL Urine Ketones Negative (Negative) Urine Blood Negative (Negative) Urine Nitrite Negative (Negative) Urine Bilirubin Negative (Negative) Urine Urobilinogen 0.2 (0.2) mg/dL Ur Leukocyte Esterase Negative (Negative) U Hyaline Cast (Auto) NONE SEEN (0-2) /LPF Urine Microscopic RBC 0-2 (0-5) /HPF Urine Microscopic WBC 0-2 (0-5) /HPF Ur Epithelial Cells None Seen (None Seen) /HPF Urine Bacteria None Seen (None Seen) /HPF Urine Culture Reflexed NO (NO) Influenza Type A Ag (NEGATIVE) Influenza Type B Ag (NEGATIVE) RSV (PCR) (NEGATIVE) SARS-CoV-2 (PCR) (NEGATIVE) 05/23/24 05/23/24 05/24/24 Range/Units 17:32 20:48 00:20 WBC (3.98-10.04) x10^3/uL RBC (3.93-5.22) x10^6/uL Hgb (11.2-15.7) g/dL Hct (34.1-44.9) % MCV (79.4-94.8) fL MCH (25.6-32.2) pg MCHC (32.2-35.5) g/dL RDW (11.7-14.4) % Plt Count (182-369) x10^3/uL MPV (9.4-12.3) fL Gran % (34.0-71.1) % Immature Gran % (Auto) (0.001-0.429) % Nucleat RBC Rel Count (0.00-0.2) % Eos # (Auto) (0.04-0.36) x10^3/uL Immature Gran # (Auto) (0.001-0.031) x10^3u/L Absolute Lymphs (auto) (1.18-3.74) x10^3/uL Absolute Monos (auto) (0.24-0.86) x10^3/uL Absolute Nucleated RBC (0.00-0.012) x10^3u/L Lymphocytes % (19.3-51.7) % Monocytes % (4.7-12.5) % Eosinophils % (0.7-5.8) % Basophils % (0.1-1.2) % Absolute Granulocytes (1.56-6.13) x10^3/uL Basophils # (0.01-0.08) x10^3/uL PT (9.4-12.5) SECONDS INR (0.8-3.0) APTT (25.1-36.5) SECONDS D-Dimer (0.0-0.50) mg/L pO2/FiO2 Ratio % VBG pH (7.32-7.42) VBG pCO2 at Pat Temp (42-55) mm/Hg VBG pO2 at Pat Temp (25-40) mm/Hg VBG HCO3 (22-28) meq/L VBG O2 Sat (Pratik) (95-100) VBG Base Excess (-2.0-2.0) VBG Hemoglobin VBG Carboxyhemoglobin (0.0-6.9) % T HGB POC Potassium (3.5-5.1) Sodium (135-145) mmol/L Potassium (3.5-5.1) mmol/L Chloride (98-107) mmol/L Carbon Dioxide (22-30) mmol/L Anion Gap (5-15) MEQ/L BUN (7-17) mg/dL Creatinine (0.52-1.04) mg/dL Estimated GFR ML/MIN Glucose (74-106) mg/dL POC Glucometer 280 H (74 to 106) mg/dL Calcium (8.4-10.2) mg/dL Magnesium (1.6-2.3) mg/dL Total Bilirubin (0.2-1.3) mg/dL AST (14-36) U/L ALT (0-35) U/L Alkaline Phosphatase (38-126) U/L Troponin I < 0.012 < 0.012 (0.000-0.033) ng/mL NT-Pro-B Natriuret Pep (<300) pg/mL Serum Total Protein (6.3-8.2) g/dL Albumin (3.5-5.0) g/dL Amylase (30-110) U/L Lipase (23-300) U/L Urine Color (Yellow) Urine Appearance (Clear) Urine pH (4.6-8.0) Ur Specific [place] (1.005-1.030) Urine Protein (Negative) Urine Glucose (UA) (Negative) mg/dL Urine Ketones (Negative) Urine Blood (Negative) Urine Nitrite (Negative) Urine Bilirubin (Negative) Urine Urobilinogen (0.2) mg/dL Ur Leukocyte Esterase (Negative) U Hyaline Cast (Auto) (0-2) /LPF Urine Microscopic RBC (0-5) /HPF Urine Microscopic WBC (0-5) /HPF Ur Epithelial Cells (None Seen) /HPF Urine Bacteria (None Seen) /HPF Urine Culture Reflexed (NO) Influenza Type A Ag (NEGATIVE) Influenza Type B Ag (NEGATIVE) RSV (PCR) (NEGATIVE) SARS-CoV-2 (PCR) (NEGATIVE) 05/24/24 05/24/24 05/24/24 Range/Units 05:38 05:38 05:38 WBC 4.3 (3.98-10.04) x10^3/uL RBC 4.11 (3.93-5.22) x10^6/uL Hgb 11.5 (11.2-15.7) g/dL Hct 36.1 (34.1-44.9) % MCV 87.8 (79.4-94.8) fL MCH 28.0 (25.6-32.2) pg MCHC 31.9 L (32.2-35.5) g/dL RDW 14.8 H (11.7-14.4) % Plt Count 172 L (182-369) x10^3/uL MPV 11.6 (9.4-12.3) fL Gran % 80.1 H (34.0-71.1) % Immature Gran % (Auto) 0.5 H (0.001-0.429) % Nucleat RBC Rel Count 0.0 (0.00-0.2) % Eos # (Auto) 0 L (0.04-0.36) x10^3/uL Immature Gran # (Auto) 0.02 (0.001-0.031) x10^3u/L Absolute Lymphs (auto) 0.63 L (1.18-3.74) x10^3/uL Absolute Monos (auto) 0.20 L (0.24-0.86) x10^3/uL Absolute Nucleated RBC 0.00 (0.00-0.012) x10^3u/L Lymphocytes % 14.7 L (19.3-51.7) % Monocytes % 4.7 (4.7-12.5) % Eosinophils % 0.0 L (0.7-5.8) % Basophils % 0.0 L (0.1-1.2) % Absolute Granulocytes 3.43 (1.56-6.13) x10^3/uL Basophils # 0 L (0.01-0.08) x10^3/uL PT (9.4-12.5) SECONDS INR (0.8-3.0) APTT (25.1-36.5) SECONDS D-Dimer (0.0-0.50) mg/L pO2/FiO2 Ratio % VBG pH (7.32-7.42) VBG pCO2 at Pat Temp (42-55) mm/Hg VBG pO2 at Pat Temp (25-40) mm/Hg VBG HCO3 (22-28) meq/L VBG O2 Sat (Pratik) (95-100) VBG Base Excess (-2.0-2.0) VBG Hemoglobin VBG Carboxyhemoglobin (0.0-6.9) % T HGB POC Potassium (3.5-5.1) Sodium 140 (135-145) mmol/L Potassium 4.0 (3.5-5.1) mmol/L Chloride 104 (98-107) mmol/L Carbon Dioxide 24 (22-30) mmol/L Anion Gap 16.0 H (5-15) MEQ/L BUN 13 (7-17) mg/dL Creatinine 0.61 (0.52-1.04) mg/dL Estimated GFR 94.3 ML/MIN Glucose 215 H (74-106) mg/dL POC Glucometer (74 to 106) mg/dL Calcium 8.4 (8.4-10.2) mg/dL Magnesium 2.1 (1.6-2.3) mg/dL Total Bilirubin 0.60 (0.2-1.3) mg/dL AST 26 (14-36) U/L ALT 22 (0-35) U/L Alkaline Phosphatase 90 (38-126) U/L Troponin I < 0.012 (0.000-0.033) ng/mL NT-Pro-B Natriuret Pep (<300) pg/mL Serum Total Protein 6.6 (6.3-8.2) g/dL Albumin 4.0 (3.5-5.0) g/dL Amylase (30-110) U/L Lipase (23-300) U/L Urine Color (Yellow) Urine Appearance (Clear) Urine pH (4.6-8.0) Ur Specific [place] (1.005-1.030) Urine Protein (Negative) Urine Glucose (UA) (Negative) mg/dL Urine Ketones (Negative) Urine Blood (Negative) Urine Nitrite (Negative) Urine Bilirubin (Negative) Urine Urobilinogen (0.2) mg/dL Ur Leukocyte Esterase (Negative) U Hyaline Cast (Auto) (0-2) /LPF Urine Microscopic RBC (0-5) /HPF Urine Microscopic WBC (0-5) /HPF Ur Epithelial Cells (None Seen) /HPF Urine Bacteria (None Seen) /HPF Urine Culture Reflexed (NO) Influenza Type A Ag (NEGATIVE) Influenza Type B Ag (NEGATIVE) RSV (PCR) (NEGATIVE) SARS-CoV-2 (PCR) (NEGATIVE) 05/24/24 05/24/24 Range/Units 05:38 06:53 WBC (3.98-10.04) x10^3/uL RBC (3.93-5.22) x10^6/uL Hgb (11.2-15.7) g/dL Hct (34.1-44.9) % MCV (79.4-94.8) fL MCH (25.6-32.2) pg MCHC (32.2-35.5) g/dL RDW (11.7-14.4) % Plt Count (182-369) x10^3/uL MPV (9.4-12.3) fL Gran % (34.0-71.1) % Immature Gran % (Auto) (0.001-0.429) % Nucleat RBC Rel Count (0.00-0.2) % Eos # (Auto) (0.04-0.36) x10^3/uL Immature Gran # (Auto) (0.001-0.031) x10^3u/L Absolute Lymphs (auto) (1.18-3.74) x10^3/uL Absolute Monos (auto) (0.24-0.86) x10^3/uL Absolute Nucleated RBC (0.00-0.012) x10^3u/L Lymphocytes % (19.3-51.7) % Monocytes % (4.7-12.5) % Eosinophils % (0.7-5.8) % Basophils % (0.1-1.2) % Absolute Granulocytes (1.56-6.13) x10^3/uL Basophils # (0.01-0.08) x10^3/uL PT 16.0 H (9.4-12.5) SECONDS INR 1.51 (0.8-3.0) APTT (25.1-36.5) SECONDS D-Dimer (0.0-0.50) mg/L pO2/FiO2 Ratio % VBG pH (7.32-7.42) VBG pCO2 at Pat Temp (42-55) mm/Hg VBG pO2 at Pat Temp (25-40) mm/Hg VBG HCO3 (22-28) meq/L VBG O2 Sat (Pratik) (95-100) VBG Base Excess (-2.0-2.0) VBG Hemoglobin VBG Carboxyhemoglobin (0.0-6.9) % T HGB POC Potassium (3.5-5.1) Sodium (135-145) mmol/L Potassium (3.5-5.1) mmol/L Chloride (98-107) mmol/L Carbon Dioxide (22-30) mmol/L Anion Gap (5-15) MEQ/L BUN (7-17) mg/dL Creatinine (0.52-1.04) mg/dL Estimated GFR ML/MIN Glucose (74-106) mg/dL POC Glucometer 187 H (74 to 106) mg/dL Calcium (8.4-10.2) mg/dL Magnesium (1.6-2.3) mg/dL Total Bilirubin (0.2-1.3) mg/dL AST (14-36) U/L ALT (0-35) U/L Alkaline Phosphatase (38-126) U/L Troponin I (0.000-0.033) ng/mL NT-Pro-B Natriuret Pep (<300) pg/mL Serum Total Protein (6.3-8.2) g/dL Albumin (3.5-5.0) g/dL Amylase (30-110) U/L Lipase (23-300) U/L Urine Color (Yellow) Urine Appearance (Clear) Urine pH (4.6-8.0) Ur Specific [place] (1.005-1.030) Urine Protein (Negative) Urine Glucose (UA) (Negative) mg/dL Urine Ketones (Negative) Urine Blood (Negative) Urine Nitrite (Negative) Urine Bilirubin (Negative) Urine Urobilinogen (0.2) mg/dL Ur Leukocyte Esterase (Negative) U Hyaline Cast (Auto) (0-2) /LPF Urine Microscopic RBC (0-5) /HPF Urine Microscopic WBC (0-5) /HPF Ur Epithelial Cells (None Seen) /HPF Urine Bacteria (None Seen) /HPF Urine Culture Reflexed (NO) Influenza Type A Ag (NEGATIVE) Influenza Type B Ag (NEGATIVE) RSV (PCR) (NEGATIVE) SARS-CoV-2 (PCR) (NEGATIVE) Micro Results-Entire Visit: Accuchecks Date 05/24/24 Date 05/23/24 Time 07:40 Time 17:44 - Radiology Exams Ordered Rad Exams-Entire Visit: Radiology Procedures Category Date Time Status CHEST 2 VIEWS (PA AND LAT) Stat Exams 05/23/24 09:32 Completed - Procedures and Test Procedures and Tests throughout Hospitalization: Therapy Orders & Screens 05/23/24 09:32 Respiratory Therapy Assessment DAILY Comment: 05/23/24 12:01 EKG REPEAT IN AM Comment: Oxygen Nasal Cannula 2 lpm Comment: Respiratory Therapy Consult ONCE Comment: Reason For Exam: Discharge Exam General Appearance: no apparent distress, alert, obese Neurologic Exam: alert, 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, cooperative, normal mood/affect, nml cerebellar function, sensation nml, No motor deficits Eye Exam: PERRL, EOMI, eyes nml inspection Ears, Nose, Throat Exam: normal ENT inspection, pharynx normal, moist mucous membranes Neck Exam: normal inspection, non-tender, supple, full range of motion Respiratory Exam: normal breath sounds, lungs clear, No respiratory distress Cardiovascular Exam: regular rate/rhythm, normal heart sounds Gastrointestinal/Abdomen Exam: soft, No tenderness, No mass Pelvic Exam: deferred Rectal Exam: deferred Back Exam: normal inspection, normal range of motion, No CVA tenderness, No vertebral tenderness Extremity Exam: normal inspection, normal range of motion Skin Exam: normal color, warm, dry Final Diagnosis/Problem List - Final Discharge Diagnosis/Problem (1) COPD with exacerbation Current Visit: Yes Status: Acute Code(s): J44.1 - CHRONIC OBSTRUCTIVE PULMONARY DISEASE W (ACUTE) EXACERBATION (2) Sinus congestion Current Visit: Yes Status: Acute (3) HTN (hypertension) Current Visit: No Status: Chronic Code(s): I10 - ESSENTIAL (PRIMARY) HYPERTENSION (4) Hyperlipidemia Current Visit: No Status: Chronic Code(s): E78.5 - HYPERLIPIDEMIA, UNSPECIFIED (5) Type 2 diabetes mellitus Current Visit: No Status: Chronic (6) Supratherapeutic INR Current Visit: No Status: Acute Code(s): R79.1 - ABNORMAL COAGULATION PROFILE (7) GERD (gastroesophageal reflux disease) Current Visit: No Status: Chronic Code(s): K21.9 - GASTRO-ESOPHAGEAL REFLUX DISEASE WITHOUT ESOPHAGITIS (8) Obesity, Class III, BMI 40-49.9 (morbid obesity) Current Visit: No Status: Chronic Code(s): E66.01 - MORBID (SEVERE) OBESITY DUE TO EXCESS CALORIES (9) Hx of cancer of lung Current Visit: No Status: Chronic Assessment & Plan: (1) COPD with exacerbation Current Visit: Yes Status: Acute Assessment & Plan: - Antibiotics, steroids - dubogdan - 94% - tessalon - sinus meds - see below - CXR negative for acute concern - CBC, CMP reviewed- non-concerning - tele - BC x2 - Sputum culture 05/24 - Will continue OP antibiotic and steroids as well as meds as requested - F/U with PCP and Dr. Lindo. - RA 94% - lung sounds clear - cough improved - Will follow BC and Sputum culture OP Code(s): J44.1 - CHRONIC OBSTRUCTIVE PULMONARY DISEASE W (ACUTE) EXACERBATION (2) Sinus congestion Current Visit: Yes Status: Acute Assessment & Plan: - Flonase - Clartin (3) HTN (hypertension) Current Visit: No Status: Chronic Assessment & Plan: - BP controlled - Cont home meds Code(s): I10 - ESSENTIAL (PRIMARY) HYPERTENSION (4) Hyperlipidemia Current Visit: No Status: Chronic Assessment & Plan: - Continue statin Code(s): E78.5 - HYPERLIPIDEMIA, UNSPECIFIED (5) Type 2 diabetes mellitus Current Visit: No Status: Chronic Qualifiers: Diabetes mellitus joint terminal attack controller insulin use: with joint terminal attack controller use Diabetes melli tus complication status: without complication Qualified Code(s): E11.9 - Type 2 diabetes mellitus without complications; Z79.4 - correction (current) use of insulin Assessment & Plan: - Cont lantus 20 units at HS - A1C 6.17, 04/02/24- controlled - Humalog S/S - Accuchecks ac/hs - Carb consistent diet (6) Supratherapeutic INR Current Visit: No Status: Acute Assessment & Plan: - INR 1.35 - pharmacy to manage coumadin - One time dose of coumadin 7.5mg gave per pharmacy orders. - Per pharmacy will take 36 hrs to work 05/24 - INR 1.51 - F/U with coumadin clinic as scheduled - Pharmacy will call for appointment - Continue regular dose per pharmacy Code(s): R79.1 - ABNORMAL COAGULATION PROFILE (7) GERD (gastroesophageal reflux disease) Current Visit: No Status: Chronic Assessment & Plan: - protonix Code(s): K21.9 - GASTRO-ESOPHAGEAL REFLUX DISEASE WITHOUT ESOPHAGITIS (8) Obesity, Class III, BMI 40-49.9 (morbid obesity) Current Visit: No Status: Chronic Assessment & Plan: - Advised ADA diet and exercise control Code(s): E66.01 - MORBID (SEVERE) OBESITY DUE TO EXCESS CALORIES (9) Hx of cancer of lung Current Visit: No Status: Chronic Assessment & Plan: - noted Code(s): Z85.118 - PERSONAL HISTORY OF MALIGNANT NEOPLASM OF BRONCHUS AND LUNG - Discharge Discharge Date: 05/24/24 Disposition: Home, Self-Care Condition: Stable Prescriptions: Continue Zolpidem Tartrate [Ambien] 10 mg PO HS Fexofenadine HCl [Nicolas Allergy] 180 mg PO HS PRN PRN PRN Reason: Allergies Metoprolol Succinate 50 mg PO DAILY Insulin Glargine,Hum.rec.anlog [Lantus] 20 unit SQ HS Albuterol Common Canister [Ventolin Common Canister] 2 puff IH BIDPRN PRN PRN Reason: Shortness Of Breath Furosemide [Lasix] 20 mg PO DAILY Colesevelam HCl 625 mg PO BID Rosuvastatin Calcium [Crestor] 10 mg PO HS Metoprolol Succinate 25 mg Xl* [Toprol-Xl 25MG Tablets] 25 mg PO HS Cbd Gummy 1 tab PO HS Warfarin Sodium 5 mg [Coumadin] 2.5 mg PO UD Warfarin Sodium 5 mg PO 3XW Fluticasone Propionate [Flonase NASAL] 1 - 2 spray INTRANASAL BIDPRN PRN PRN Reason: Allergies Follow up with: ANITA SHEA [Primary Care Provider] -
[2024-05-24] MEDS: Toprol Xl 50 MG PO SCH (10:02)
[2024-05-24] MEDS: ROCEPHIN 1 GM / 100 ML NaCl 1 GM/100 ML IVPB IV SCH (10:02)
[2024-05-24] MEDS: Flonase NASAL NS SCH (10:02)
[2024-05-24] MEDS: LASIX 20 MG PO SCH (10:02)
[2024-05-24] MEDS: Protonix 20MG Tablet PO SCH (10:02)
[2024-05-24 11:42] VITALS: BP 151/72
[2024-05-24 13:14] VITALS: PULSE 86; RESP 18; O2SAT 92
[2024-05-24] MEDS ORDERED: COUMADIN PO SCH (18:00)
[2024-05-26] MEDS ORDERED: COUMADIN PO SCH (18:00)
== END 2024-05-24 13:35 | disposition home or self-care (01) ==
LOC: ED 09:24 → MED SURG 11:57
PROVIDERS: ADMIT Internal Medicine; ATTEND Internal Medicine
DX: J44.1 Chronic obstructive pulmonary disease with (acute) exacerbation (principal); E11.9 Type 2 diabetes mellitus without complications; R19.7 Diarrhea, unspecified; R09.81 Nasal congestion; I10 Essential (primary) hypertension; E78.5 Hyperlipidemia, unspecified; R79.1 Abnormal coagulation profile; K21.9 Gastro-esophageal reflux disease without esophagitis; E66.01 Morbid (severe) obesity due to excess calories; Z79.01 Long term (current) use of anticoagulants; Z85.118 Personal history of other malignant neoplasm of bronchus and lung; Z79.899 Other long term (current) drug therapy
CPT/HCPCS: 0241U; 36415; 71046; 80053; 81001; 82150; 82805; 82947; 83690; 83735; 83880; 84484; 85025; 85379; 85610; 85730; 87040; 93005; 93268; 94640; 94760; 96374; 96375; 99285; G0378; Q3014; 99284; J0696; J1817; J2270; J2919; J7609; A9270-GY

== ENCOUNTER 2025-01-04 17:58 | Emergency (ER) | payer MEDICARE, OTHER ==
[2025-01-04 18:15] VITALS: TEMP 98
--- NOTE | 2025-01-04 18:33 | ERPHSYRPT ---
- History of Present Illness Time Seen by Provider: 01/04/25 18:20 Source: patient Exam Limitations: no limitations Patient Subjective Stated Complaint: pt c/o of RUQ pain that radiates to her back, some pain to the LUQ, diarrhea, pt thinks that she is having a flare up of pancreatitis Triage Nursing Assessment: Pt brought self to the ER, hypertensive, rates pain as 9/10, pulses normal, skin n/w/d, pain with palpatation to the right and left UQ, nausea but denies vomiting, last intake yesterday evening, last bowel movement today, pt reports having a lesion on her pancreas and a hx of lung cancer, no difficulty breathing, denies cardiac pain, doesn't appear to be in any distress at this time Physician History: Patient has a history of pancreatitis. Right upper quadrant pain into the left upper quadrant. Has been going on for 3 days. Has taken herself on a liquid diet. No other falls or trauma. Patient does have a pancreatic lesion that she follows with GI in [place] for. No other injuries. States that she has had diarrhea, pain, cramping, nausea. Otherwise in her normal state of health no fever, no tachycardia. Allergies/Adverse Reactions: clarithromycin [From Biaxin] Allergy (Severe, Verified 01/04/25 18:15) Hives Coconut Allergy (Severe, Verified 01/04/25 18:15) Difficulty Breathing green dye *RETIRED-07/03/12 [Green Dye] Allergy (Mild, Verified 01/04/25 18:15) Swelling swelling ears red dye [Red Dye] Allergy (Mild, Verified 01/04/25 18:15) Swelling ears swell adhesive Allergy (Verified 01/04/25 18:15) Rash cholestyramine Allergy (Verified 01/04/25 18:15) iodine Allergy (Verified 01/04/25 18:15) Wheezing iron Allergy (Verified 01/04/25 18:15) lip swelling latex Allergy (Verified 01/04/25 18:15) Rash nitrofurantoin [From Macrobid] Allergy (Verified 01/04/25 18:15) levofloxacin [From Levaquin] Adverse Reaction (Mild, Verified 01/04/25 18:15) Joint Aches Home Medications: Zolpidem Tartrate [Ambien] 10 mg PO HS 08/16/15 [History] Albuterol Common Canister [Ventolin Common Canister] 2 puff IH BIDPRN PRN 09/20/23 [History] Insulin Glargine,Hum.rec.anlog [Lantus] 20 unit SQ HS 09/20/23 [History] Metoprolol Succinate 50 mg PO BID 09/20/23 [History] Rosuvastatin Calcium [Crestor] 10 mg PO HS 02/18/24 [History] Dabigatran Etexilate Mesylate [Dabigatran Etexilate] 150 mg PO BID 08/07/24 [History] Furosemide [Lasix] 20 mg PO .EVERY OTHER DAY 01/04/25 [History] Potassium Chloride 20 meq PO DAILY 01/04/25 [History] Hx Tetanus, Diphtheria Vaccination/Date Given: No Hx Influenza Vaccination/Date Given: Yes Hx Pneumococcal Vaccination/Date Given: Yes Travel Risk - International Travel Have you traveled outside of the country in past 3 weeks: No - Emerging Infectious Disease Are you exhibiting symptoms associated with any current EIDs: Yes Symptoms: Abdominal Pain, Diarrhea - Past Medical History Pertinent Past Medical History: Yes Neurological History: Other ENT History: Cataracts Cardiac History: Other Respiratory History: COPD, Lung Cancer Endocrine Medical History: Diabetes Type II Musculoskeletal History: Osteoarthritis GI Medical History: Diverticulitis, Gallbladder Disease, Pancreatitis History: No Pertinent History Psycho-Social History: No Pertinent History Female Reproductive Disorders: No Pertinent History Other Medical History: 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 PANCREATIC LESION. UPPER RIGHT AND LOWER LEFT LOBE REMOVED FOR LUNG CA. PACEMAKER. - Past Surgical History Past Surgical History: Yes Neuro Surgical History: No Pertinent History Cardiac: Pacemaker Respiratory: Lobectomy Gastrointestinal: Appendectomy, Cholecystectomy, Hernia Repair Genitourinary: No Pertinent History Musculoskeletal: No Pertinent History, Joint Replacement, Orthopedic Surgery Female Surgical History: Hysterectomy, Other Other Surgical History: tonsilectomy, carpal tunnel, trigger finger X3, BLADDER SLING, colorectal, SI fusion, left wedge resection to lungs July 16, 2020, PACEMAKER 2022 - Social History Smoking Status: Former smoker Exposure to second hand smoke: No Drug Use: none - Social Determinants of Health Will the patient participate in the screening: Yes Do you worry about a steady place to live?: No Do you have any problems with any of the following?: No known problems In the past 12 months,have you had to go without utilities?: No Transportation Issues: No Has anyone in your support network made you feel unsafe?: No Have you or anyone in your house had to go w/o enough food: No - Nursing Vital Signs Nursing Vital Signs: Initial Vital Signs Temperature 98.0 F 01/04/25 18:03 Pulse Rate 61 01/04/25 18:03 Respiratory Rate 20 01/04/25 18:03 Blood Pressure 144/65 01/04/25 18:03 O2 Sat by Pulse Oximetry 98 01/04/25 18:03 Pain Scale Pain Intensity 9 - Physical Exam SpO2 Interpretation: normal SpO2: 98 Comments: 01/04/25 18:32 Review of Systems Constitutional: Negative for fever. HENT: Negative for congestion. Respiratory: Negative for shortness of breath. Cardiovascular: Negative for chest pain. Gastrointestinal: Abdominal pain and nausea Genitourinary: Negative for dysuria. Musculoskeletal: Negative for back pain. Skin: Negative for rash. Neurological: Negative for headaches. Psychiatric/Behavioral: Negative for behavioral problems. All other systems reviewed and are negative. Physical Exam Vitals signs and nursing note reviewed. Constitutional: Appearance: Patient is well-developed. HENT: Head: Normocephalic and atraumatic. Eyes: Conjunctiva/sclera: Conjunctivae normal. Neck: Musculoskeletal: Normal range of motion. Trachea: No tracheal deviation. Cardiovascular: Rate and Rhythm: Normal rate. Heart sounds normal. Pulmonary: Effort: Pulmonary effort is normal. No respiratory distress. Abdominal: Palpations: Abdomen is soft. Midepigastric tenderness without rebound or guarding Musculoskeletal: General: No deformity. Skin: General: Skin is warm and dry. Neurological/ Psychiatric: Mental Status: Mental status, behavior, interaction with environment is maria luisa ropriate for patient's age and condition - Course Nursing assessment & vital signs reviewed: Yes Ordered Tests: Active Orders 24 hr Category Date Time Status IV Insertion STAT Care 01/04/25 18:29 Active ABDOMEN AND PELVIS W CONTRAST [CT] Stat Exams 01/04/25 18:30 Ordered AMYLASE Stat Lab 01/04/25 18:29 Ordered CBC W DIFF Stat Lab 01/04/25 18:29 Ordered CMP Stat Lab 01/04/25 18:29 Ordered LIPASE Stat Lab 01/04/25 18:29 Ordered Lactic Acid Stat Lab 01/04/25 18:29 Ordered UA W/RFX UR CULTURE Stat Lab 01/04/25 18:30 Ordered Medication Summary Generic Name Dose Route Start Last Admin Trade Name Freq PRN Reason Stop Dose Admin Sodium Chloride 1,000 mls @ 999 mls/hr 01/04/25 18:29 Sodium Chloride 0.9% 1000 Ml IV 01/04/25 19:29 .Q1H1M STA Discontinued Medications Generic Name Dose Route Start Last Admin Trade Name Freq PRN Reason Stop Dose Admin Ondansetron HCl 4 mg 01/04/25 18:29 Ondansetron Hcl 4 Mg/2 Ml Vial IV 01/04/25 18:30 STAT ONE - Progress Progress: improved Progress Note: 01/04/25 18:33 Differential diagnosis includes kidney stone, compression fracture, infection, UTI, triple AAA - basic labs including: CBC, lipase, CMP, UA, amylase - insert IV for symptom management - consider imaging: CT ab/pelvis or U/S Transfer of care to Dr. Joseph at 7 PM. He will follow-up on all labs and imaging. He will reexamine the patient, ultimate disposition per this. Counseled pt/family regarding: lab results, diagnosis, need for follow-up, rad results - Departure Clinical Impression: Abdominal pain Condition: Stable Critical Care Time: No Referrals: SKYLER CEJA NP [Primary Care Provider, FAMILY PRACTICE] - Follow up/PCP as directed
[2025-01-04 19:37] LABS: Glucose, Urine Negative (Negative); Protein,Urine Dip Negative (Negative); RBC 0-2 /HPF (0-5)
[2025-01-04] MEDS ORDERED: Zofran 4 MG/2 ML VIAL ONE (19:49)
[2025-01-04] MEDS ORDERED: MORPHINE SULFATE 4 MG INJ ONE (19:50)
[2025-01-04 19:52] LABS: BASOPHIL % 0.5 % (0.1-1.2); Basophil (Absolute #) 0.04 x10^3/uL (0.01-0.08); Eosinophil (Absolute #) 0.30 x10^3/uL (0.04-0.36); Hematocrit 38.0 % (34.1-44.9); Hemoglobin 12.5 g/dL (11.2-15.7); IMMATURE GRAN # 0.02 x10^3u/L (0.001-0.031); IMMATURE GRAN % 0.3 % (0.001-0.429); Lymphocyte (Absolute #) 1.94 x10^3/uL (1.18-3.74); Mean Corpuscular Hemoglobin 30.1 pg (25.6-32.2); Mean Corpuscular Hgb Concent. 32.9 g/dL (32.2-35.5); Monocyte (Absolute #) 0.71 x10^3/uL (0.24-0.86); NUCLEATED RBC # 0.00 x10^3u/L (0.00-0.012); NUCLEATED RBC % 0.0 % (0.00-0.2); Platelet Count 184 x10^3/uL (182-369); Red Blood Count 4.15 x10^6/uL (3.93-5.22); White Blood Count 7.5 x10^3/uL (3.98-10.04)
[2025-01-04] MEDS: Zofran 4 MG/2 ML VIAL IV ONE (19:55)
[2025-01-04] MEDS: MORPHINE SULFATE 4 MG INJ IV ONE (19:55)
[2025-01-04 20:04] LABS: Calcium 8.8 mg/dL (8.4-10.2); Carbon Dioxide 30.0 mmol/L (22-30); Creatinine 1 0.89 mg/dL (0.52-1.04); EST GLOMERULAR FILTRATION RATE 68.0 ML/MIN; Glucose 101.0 mg/dL (74-106); Potassium 3.2 mmol/L (3.5-5.1); SGOT/AST 21.0 U/L (14-36); SGPT/ALT 18.0 U/L (0-35); Total Protein 6.6 g/dL (6.3-8.2)
[2025-01-04 20:11] VITALS: PULSE 60
[2025-01-04 20:33] VITALS: O2SAT 94
--- NOTE | 2025-01-04 20:41 | XRAY ---
CLINICAL HISTORY: Acute pancreatitis COMPARISON: 07/20/2023 CT TECHNIQUE: Non-contrast CT of the abdomen and pelvis was performed, with the following protocol: axial images and reconstructed coronal and sagittal images. No intravenous contrast was administered. One of the following dose reduction techniques was utilized for this exam: automated exposure control, adjustment of the mA and/or kV according to patient size, and use of iterative reconstruction. FINDINGS: Abdomen: Liver: The liver is normal in size, shape, and density. No focal lesions, cysts, or masses are identified. Gallbladder and Biliary System: The gallbladder is not visualized, with surgical clips noted in the gallbladder fossa, consistent with postcholecystectomy status. Pancreas: The pancreatic head, body, and tail are visualized and appear normal in size and density. No pancreatic masses or calcifications are noted. Spleen: The spleen is normal in size, shape, and density. No splenic lesions or masses are identified. Kidneys and Adrenal Glands: Both kidneys are normal in size, shape, and position. Cortical thickness is within normal limits. A 0.8 cm exophytic simple cyst is noted at the lower pole of the left kidney. No renal calculi or hydronephrosis are present. The adrenal glands are unremarkable. Appendix: The appendix is not visualized, consistent with surgical history. Pelvis: Urinary Bladder: The urinary bladder is partially distended with mildly thick-appearing sam, likely due to underdistention. Uterus: The uterus is not optimally visualized, consistent with surgical history. Ovaries: Not well visualized. Vagina: Normal in contour and wall thickness. Cervix: No evidence of mass or abnormal thickening. Peritoneal and Retroperitoneal Structures: No free fluid or abnormal fluid collections are identified within the abdomen or pelvis. No lymphadenopathy is noted. Bowel: Multiple diverticuli are noted along the descending and right colon without definite evidence of acute diverticulitis. Small bowel loops are predominantly collapsed. The ileocecal junction is intact. Bones and Soft Tissues: Surgical sweta are noted along the gastroesophageal junction and left upper abdominal quadrant, which requires clinical correlation. Degenerative changes are noted along the visualized thoracolumbar spine. Exaggerated lumbar lordosis is noted. Right sacroiliac joint fixation by metallic screws is noted. On appropriate lung window settings, a grossly unchanged 0.6 cm soft tissue density nodule is noted along the posterior basal segment of the right lung lower lobe. The rest of the visualized bilateral lower lobes appears grossly unremarkable. IMPRESSION: 1. No acute abdominal or large pelvic abnormality is noted. 2. Redemonstration of a small left renal simple cyst. 3. Redemonstration of descending and sigmoid colonic diverticulosis without definite evidence of diverticulitis. 4. Rest of the details as above. Electronically Signed by: Trino Lazaro MD. (01/04/2025 20:40:19 EDT)
--- NOTE | 2025-01-04 21:19 | ERPHSYRPT ---
- History of Present Illness Time Seen by Provider: 01/04/25 18:20 Patient Subjective Stated Complaint: pt c/o of RUQ pain that radiates to her back, some pain to the LUQ, diarrhea, pt thinks that she is having a flare up of pancreatitis Triage Nursing Assessment: Pt brought self to the ER, hypertensive, rates pain as 9/10, pulses normal, skin n/w/d, pain with palpatation to the right and left UQ, nausea but denies vomiting, last intake yesterday evening, last bowel movement today, pt reports having a lesion on her pancreas and a hx of lung cancer, no difficulty breathing, denies cardiac pain, doesn't appear to be in any distress at this time Allergies/Adverse Reactions: clarithromycin [From Biaxin] Allergy (Severe, Verified 01/04/25 18:15) Hives Coconut Allergy (Severe, Verified 01/04/25 18:15) Difficulty Breathing green dye *RETIRED-07/03/12 [Green Dye] Allergy (Mild, Verified 01/04/25 18:15) Swelling swelling ears red dye [Red Dye] Allergy (Mild, Verified 01/04/25 18:15) Swelling ears swell adhesive Allergy (Verified 01/04/25 18:15) Rash cholestyramine Allergy (Verified 01/04/25 18:15) iodine Allergy (Verified 01/04/25 18:15) Wheezing iron Allergy (Verified 01/04/25 18:15) lip swelling latex Allergy (Verified 01/04/25 18:15) Rash nitrofurantoin [From Macrobid] Allergy (Verified 01/04/25 18:15) levofloxacin [From Levaquin] Adverse Reaction (Mild, Verified 01/04/25 18:15) Joint Aches Home Medications: Zolpidem Tartrate [Ambien] 10 mg PO HS 08/16/15 [History] Albuterol Common Canister [Ventolin Common Canister] 2 puff IH BIDPRN PRN 09/20/23 [History] Insulin Glargine,Hum.rec.anlog [Lantus] 20 unit SQ HS 09/20/23 [History] Metoprolol Succinate 50 mg PO BID 09/20/23 [History] Rosuvastatin Calcium [Crestor] 10 mg PO HS 12/09/24 [History] Dabigatran Etexilate Mesylate [Dabigatran Etexilate] 150 mg PO BID 08/07/24 [History] Furosemide [Lasix] 20 mg PO .EVERY OTHER DAY 01/04/25 [History] Potassium Chloride 20 meq PO DAILY 01/04/25 [History] Hx Tetanus, Diphtheria Vaccination/Date Given: No Hx Influenza Vaccination/Date Given: Yes Hx Pneumococcal Vaccination/Date Given: Yes Travel Risk - International Travel Have you traveled outside of the country in past 3 weeks: No - Emerging Infectious Disease Are you exhibiting symptoms associated with any current EIDs: Yes Symptoms: Abdominal Pain, Diarrhea - Past Medical History Pertinent Past Medical History: Yes Neurological History: Other ENT History: Cataracts Cardiac History: Other Respiratory History: COPD, Lung Cancer Endocrine Medical History: Diabetes Type II Musculoskeletal History: Osteoarthritis GI Medical History: Diverticulitis, Gallbladder Disease, Pancreatitis History: No Pertinent History Psycho-Social History: No Pertinent History Female Reproductive Disorders: No Pertinent History Other Medical History: 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 PANCREATIC LESION. UPPER RIGHT AND LOWER LEFT LOBE REMOVED FOR LUNG CA. PACEMAKER. - Past Surgical History Past Surgical History: Yes Neuro Surgical History: No Pertinent History Cardiac: Pacemaker Respiratory: Lobectomy Gastrointestinal: Appendectomy, Cholecystectomy, Hernia Repair Genitourinary: No Pertinent History Musculoskeletal: No Pertinent History, Joint Replacement, Orthopedic Surgery Female Surgical History: Hysterectomy, Other Other Surgical History: tonsilectomy, carpal tunnel, trigger finger X3, BLADDER SLING, colorectal, SI fusion, left wedge resection to lungs July 16, 2020, PACEMAKER 2022 - Social History Smoking Status: Former smoker Exposure to second hand smoke: No Drug Use: none - Social Determinants of Health Will the patient participate in the screening: Yes Do you worry about a steady place to live?: No Do you have any problems with any of the following?: No known problems In the past 12 months,have you had to go without utilities?: No Transportation Issues: No Has anyone in your support network made you feel unsafe?: No Have you or anyone in your house had to go w/o enough food: No - Nursing Vital Signs Nursing Vital Signs: Initial Vital Signs Temperature 98.0 F 01/04/25 18:03 Pulse Rate 61 01/04/25 18:03 Respiratory Rate 20 01/04/25 18:03 Blood Pressure 144/65 01/04/25 18:03 O2 Sat by Pulse Oximetry 98 01/04/25 18:03 Pain Scale Pain Intensity 4 - Physical Exam SpO2 Interpretation: normal SpO2: 94 Ordered Tests: Active Orders 24 hr Category Date Time Status IV Insertion STAT Care 01/04/25 18:29 Active ABDOMEN AND PELVIS W/0 CONTRAS [CT] Stat Exams 01/04/25 19:15 Completed AMYLASE Stat Lab 01/04/25 19:45 Completed CBC W DIFF Stat Lab 01/04/25 19:45 Completed CMP Stat Lab 01/04/25 19:45 Completed LIPASE Stat Lab 01/04/25 19:45 Completed Lactic Acid Stat Lab 01/04/25 18:29 Completed UA W/RFX UR CULTURE Stat Lab 01/04/25 19:26 Completed Medication Summary Discontinued Medications Generic Name Dose Route Start Last Admin Trade Name Freq PRN Reason Stop Dose Admin Sodium Chloride 1,000 mls @ 999 mls/hr 01/04/25 18:29 01/04/25 19:53 Sodium Chloride 0.9% 1000 Ml IV 01/04/25 19:29 999 mls/hr .Q1H1M STA Administration Sodium Chloride Confirm 01/04/25 19:50 Sodium Chloride 0.9% 1000 Ml Administered 01/04/25 19:51 Dose 1,000 mls @ ud .ROUTE .STK-MED ONE Morphine Sulfate 4 mg 01/04/25 19:00 01/04/25 19:55 Morphine Sulfate 4 Mg/Ml Injection IV 01/04/25 19:01 4 mg STAT ONE Administration Morphine Sulfate Confirm 01/04/25 19:50 Morphine Sulfate 4 Mg/Ml Injection Administered 01/04/25 19:51 Dose 4 mg .ROUTE .STK-MED ONE Ondansetron HCl 4 mg 01/04/25 18:29 01/04/25 19:55 Ondansetron Hcl 4 Mg/2 Ml Vial IV 01/04/25 18:30 4 mg STAT ONE Administration Ondansetron HCl Confirm 01/04/25 19:49 Ondansetron Hcl 4 Mg/2 Ml Vial Administered 01/04/25 19:50 Dose 4 mg .ROUTE .STK-MED ONE Lab/Rad Data: Laboratory Result Diagrams 01/04/25 19:45 01/04/25 19:45 Laboratory Results 01/04/25 01/04/25 01/04/25 Range/Units 19:45 19:45 19:26 WBC 7.5 (3.98-10.04) x10^3/uL RBC 4.15 (3.93-5.22) x10^6/uL Hgb 12.5 (11.2-15.7) g/dL Hct 38.0 (34.1-44.9) % MCV 91.6 (79.4-94.8) fL MCH 30.1 (25.6-32.2) pg MCHC 32.9 (32.2-35.5) g/dL RDW 13.5 (11.7-14.4) % Plt Count 184 (182-369) x10^3/uL MPV 10.5 (9.4-12.3) fL Gran % 60.0 (34.0-71.1) % Immature Gran % (Auto) 0.3 (0.001-0.429) % Nucleat RBC Rel Count 0.0 (0.00-0.2) % Eos # (Auto) 0.30 (0.04-0.36) x10^3/uL Immature Gran # (Auto) 0.02 (0.001-0.031) x10^3u/L Absolute Lymphs (auto) 1.94 (1.18-3.74) x10^3/uL Absolute Monos (auto) 0.71 (0.24-0.86) x10^3/uL Absolute Nucleated RBC 0.00 (0.00-0.012) x10^3u/L Lymphocytes % 25.8 (19.3-51.7) % Monocytes % 9.4 (4.7-12.5) % Eosinophils % 4.0 (0.7-5.8) % Basophils % 0.5 (0.1-1.2) % Absolute Granulocytes 4.51 (1.56-6.13) x10^3/uL Basophils # 0.04 (0.01-0.08) x10^3/uL Sodium 140 (135-145) mmol/L Potassium 3.2 L (3.5-5.1) mmol/L Chloride 103 (98-107) mmol/L Carbon Dioxide 30 (22-30) mmol/L Anion Gap 10.1 (5-15) MEQ/L BUN 15 (7-17) mg/dL Creatinine 0.89 (0.52-1.04) mg/dL Estimated GFR 68.0 ML/MIN Glucose 101 (74-106) mg/dL Lactic Acid (0.4-2.0) Calcium 8.8 (8.4-10.2) mg/dL Total Bilirubin 0.90 (0.2-1.3) mg/dL AST 21 (14-36) U/L ALT 18 (0-35) U/L Alkaline Phosphatase 103 (38-126) U/L Serum Total Protein 6.6 (6.3-8.2) g/dL Albumin 4.1 (3.5-5.0) g/dL Amylase 48 (30-110) U/L Lipase 37 (23-300) U/L Urine Color Yellow (Yellow) Urine Appearance Clear (Clear) Urine pH 6.5 (4.6-8.0) Ur Specific [place] <=1.005 (1.005-1.030) Urine Protein Negative (Negative) Urine Glucose (UA) Negative (Negative) mg/dL Urine Ketones Negative (Negative) Urine Blood Negative (Negative) Urine Nitrite Negative (Negative) Urine Bilirubin Negative (Negative) Urine Urobilinogen 0.2 (0.2) mg/dL Ur Leukocyte Esterase Small A (Negative) U Hyaline Cast (Auto) NONE SEEN (0-2) /LPF Urine Microscopic RBC 0-2 (0-5) /HPF Urine Microscopic WBC 6-10 A (0-5) /HPF Ur Epithelial Cells None Seen (None Seen) /HPF Urine Bacteria Many A (None Seen) /HPF Urine Culture Reflexed NO (NO) 01/04/25 Range/Units 18:29 WBC (3.98-10.04) x10^3/uL RBC (3.93-5.22) x10^6/uL Hgb (11.2-15.7) g/dL Hct (34.1-44.9) % MCV (79.4-94.8) fL MCH (25.6-32.2) pg MCHC (32.2-35.5) g/dL RDW (11.7-14.4) % Plt Count (182-369) x10^3/uL MPV (9.4-12.3) fL Gran % (34.0-71.1) % Immature Gran % (Auto) (0.001-0.429) % Nucleat RBC Rel Count (0.00-0.2) % Eos # (Auto) (0.04-0.36) x10^3/uL Immature Gran # (Auto) (0.001-0.031) x10^3u/L Absolute Lymphs (auto) (1.18-3.74) x10^3/uL Absolute Monos (auto) (0.24-0.86) x10^3/uL Absolute Nucleated RBC (0.00-0.012) x10^3u/L Lymphocytes % (19.3-51.7) % Monocytes % (4.7-12.5) % Eosinophils % (0.7-5.8) % Basophils % (0.1-1.2) % Absolute Granulocytes (1.56-6.13) x10^3/uL Basophils # (0.01-0.08) x10^3/uL Sodium (135-145) mmol/L Potassium (3.5-5.1) mmol/L Chloride (98-107) mmol/L Carbon Dioxide (22-30) mmol/L Anion Gap (5-15) MEQ/L BUN (7-17) mg/dL Creatinine (0.52-1.04) mg/dL Estimated GFR ML/MIN Glucose (74-106) mg/dL Lactic Acid 0.9 (0.4-2.0) Calcium (8.4-10.2) mg/dL Total Bilirubin (0.2-1.3) mg/dL AST (14-36) U/L ALT (0-35) U/L Alkaline Phosphatase (38-126) U/L Serum Total Protein (6.3-8.2) g/dL Albumin (3.5-5.0) g/dL Amylase (30-110) U/L Lipase (23-300) U/L Urine Color (Yellow) Urine Appearance (Clear) Urine pH (4.6-8.0) Ur Specific [place] (1.005-1.030) Urine Protein (Negative) Urine Glucose (UA) (Negative) mg/dL Urine Ketones (Negative) Urine Blood (Negative) Urine Nitrite (Negative) Urine Bilirubin (Negative) Urine Urobilinogen (0.2) mg/dL Ur Leukocyte Esterase (Negative) U Hyaline Cast (Auto) (0-2) /LPF Urine Microscopic RBC (0-5) /HPF Urine Microscopic WBC (0-5) /HPF Ur Epithelial Cells (None Seen) /HPF Urine Bacteria (None Seen) /HPF Urine Culture Reflexed (NO) - Progress Progress: improved Progress Note: 01/04/25 21:[address] Hughes, CT scan and labs were reviewed, recommend outpatient follow-up and treatment Counseled pt/family regarding: lab results, rad results - Departure Departure Disposition: Home Clinical Impression: Abdominal pain Condition: Stable Critical Care Time: No Referrals: SKYLER CEJA NP [Primary Care Provider, FAMILY PRACTICE] - Follow up/PCP as directed Instructions: Diarrhea in teens and adults, Abdominal pain in adults - ED discharge instructions Additional Instructions: Imodium for diarrhea control, continue clear liquids, follow-up with primary care doctor in 1 to 2 days
[2025-01-04 21:23] VITALS: BP 133/60; RESP 19
== END 2025-01-04 21:39 | disposition home or self-care (01) ==
LOC: ED 17:58
DX: R10.11 Right upper quadrant pain (principal); R10.12 Left upper quadrant pain; R19.7 Diarrhea, unspecified; R11.0 Nausea; E11.9 Type 2 diabetes mellitus without complications; Z79.4 Long term (current) use of insulin; Z79.899 Other long term (current) drug therapy

== ENCOUNTER 2025-01-07 17:47 | Emergency (ER) | payer MEDICARE, OTHER ==
--- NOTE | 2025-01-07 18:01 | ERPHSYRPT ---
- History of Present Illness Time Seen by Provider: 01/07/25 18:01 Source: patient Exam Limitations: no limitations Allergies/Adverse Reactions: clarithromycin [From Biaxin] Allergy (Severe, Verified 01/04/25 18:15) Hives Coconut Allergy (Severe, Verified 01/04/25 18:15) Difficulty Breathing green dye *RETIRED-07/03/12 [Green Dye] Allergy (Mild, Verified 01/04/25 18:15) Swelling swelling ears red dye [Red Dye] Allergy (Mild, Verified 01/04/25 18:15) Swelling ears swell adhesive Allergy (Verified 01/04/25 18:15) Rash cholestyramine Allergy (Verified 01/04/25 18:15) iodine Allergy (Verified 01/04/25 18:15) Wheezing iron Allergy (Verified 01/04/25 18:15) lip swelling latex Allergy (Verified 01/04/25 18:15) Rash nitrofurantoin [From Macrobid] Allergy (Verified 01/04/25 18:15) levofloxacin [From Levaquin] Adverse Reaction (Mild, Verified 01/04/25 18:15) Joint Aches Home Medications: Zolpidem Tartrate [Ambien] 10 mg PO HS 08/16/15 [History] Albuterol Common Canister [Ventolin Common Canister] 2 puff IH BIDPRN PRN 09/20/23 [History] Insulin Glargine,Hum.rec.anlog [Lantus] 20 unit SQ HS 09/20/23 [History] Metoprolol Succinate 50 mg PO BID 09/20/23 [History] Rosuvastatin Calcium [Crestor] 10 mg PO HS 02/18/24 [History] Dabigatran Etexilate Mesylate [Dabigatran Etexilate] 150 mg PO BID 08/07/24 [History] Furosemide [Lasix] 20 mg PO .EVERY OTHER DAY 01/04/25 [History] Potassium Chloride 20 meq PO DAILY 01/04/25 [History] Hx Tetanus, Diphtheria Vaccination/Date Given: No Hx Influenza Vaccination/Date Given: Yes Hx Pneumococcal Vaccination/Date Given: Yes Travel Risk - Emerging Infectious Disease Are you exhibiting symptoms associated with any current EIDs: Yes Symptoms: Abdominal Pain, Diarrhea - Past Medical History Musculoskeletal History: Osteoarthritis - Past Surgical History Musculoskeletal: No Pertinent History, Joint Replacement, Orthopedic Surgery Other Surgical History: tonsilectomy, carpal tunnel, trigger finger X3, BLADDER SLING, colorectal, SI fusion, left wedge resection to lungs July 16, 2020, PACEMAKER 2022 - Social History Smoking Status: Former smoker Drug Use: none - Social Determinants of Health Will the patient participate in the screening: Yes Do you worry about a steady place to live?: No In the past 12 months,have you had to go without utilities?: No Transportation Issues: No Has anyone in your support network made you feel unsafe?: No Have you or anyone in your house had to go w/o enough food: No - Departure Referrals: SKYLER CEJA NP [Primary Care Provider, FAMILY PRACTICE] - Follow up/PCP as directed
[2025-01-07 18:02] VITALS: PULSE 62; TEMP 98.5
--- NOTE | 2025-01-07 19:43 | ERPHSYRPT ---
- History of Present Illness Time Seen by Provider: 01/07/25 18:01 Source: patient Exam Limitations: no limitations Patient Subjective Stated Complaint: Pt had a squamous mole removed today and then managed to pull some of the stitches out on her right wrist Triage Nursing Assessment: Pt brought self to the ER, vitals wnl, denies pain, pulses normal, skin n/w/d, denies chest pain, no difficulty breathing, 1.5 cm opened incision to the right wrist Physician History: Patient is a 74-year-old female presents to our ED as a referral from her terminal press operator office for skin closure. Patient reports she had a skin mole holcomb rgically removed today. Patient states the stitches came apart. She called her doctor's office who advised her to come to our ED to close it. Patient otherwise asymptomatic. No active pain. No extremity numbness tingling or weakness. Patient voices no other complaints or concerns at this time. Portions of this note were created with voice recognition technology. There may be grammatical, spelling, punctuation or sound alike errors Timing/Duration: today Severity: moderate Modifying Factors: Improves With: nothing Associated Symptoms: denies symptoms Allergies/Adverse Reactions: clarithromycin [From Biaxin] Allergy (Severe, Verified 01/07/25 18:02) Hives Coconut Allergy (Severe, Verified 01/07/25 18:02) Difficulty Breathing green dye *RETIRED-07/03/12 [Green Dye] Allergy (Mild, Verified 01/07/25 18:02) Swelling swelling ears red dye [Red Dye] Allergy (Mild, Verified 01/07/25 18:02) Swelling ears swell adhesive Allergy (Verified 01/07/25 18:02) Rash cholestyramine Allergy (Verified 01/07/25 18:02) iodine Allergy (Verified 01/07/25 18:02) Wheezing iron Allergy (Verified 01/07/25 18:02) lip swelling latex Allergy (Verified 01/07/25 18:02) Rash nitrofurantoin [From Macrobid] Allergy (Verified 01/07/25 18:02) levofloxacin [From Levaquin] Adverse Reaction (Mild, Verified 01/07/25 18:02) Joint Aches Home Medications: Zolpidem Tartrate [Ambien] 10 mg PO HS 08/16/15 [History] Albuterol Common Canister [Ventolin Common Canister] 2 puff IH BIDPRN PRN 09/20/23 [History] Insulin Glargine,Hum.rec.anlog [Lantus] 20 unit SQ HS 09/20/23 [History] Metoprolol Succinate 50 mg PO BID 09/20/23 [History] Rosuvastatin Calcium [Crestor] 10 mg PO HS 02/18/24 [History] Dabigatran Etexilate Mesylate [Dabigatran Etexilate] 150 mg PO BID 08/07/24 [History] Furosemide [Lasix] 20 mg PO .EVERY OTHER DAY 01/04/25 [History] Potassium Chloride 20 meq PO DAILY 01/04/25 [History] Hx Tetanus, Diphtheria Vaccination/Date Given: No Hx Influenza Vaccination/Date Given: Yes Hx Pneumococcal Vaccination/Date Given: Yes Travel Risk - International Travel Have you traveled outside of the country in past 3 weeks: No - Emerging Infectious Disease Are you exhibiting symptoms associated with any current EIDs: Yes Symptoms: Abdominal Pain, Diarrhea - Review of Systems All Other Systems: Reviewed and Negative - Past Medical History Musculoskeletal History: Osteoarthritis - Past Surgical History Musculoskeletal: No Pertinent History, Joint Replacement, Orthopedic Surgery Other Surgical History: tonsilectomy, carpal tunnel, trigger finger X3, BLADDER SLING, colorectal, SI fusion, left wedge resection to lungs July 16, 2020, [facility] 2022 - Social History Smoking Status: Former smoker Drug Use: none - Social Determinants of Health Will the patient participate in the screening: Yes Do you worry about a steady place to live?: No In the past 12 months,have you had to go without utilities?: No Transportation Issues: No Has anyone in your support network made you feel unsafe?: No Have you or anyone in your house had to go w/o enough food: No - Nursing Vital Signs Nursing Vital Signs: Initial Vital Signs Temperature 98.5 F 01/07/25 17:56 Pulse Rate 62 01/07/25 17:56 Blood Pressure 130/58 01/07/25 17:56 O2 Sat by Pulse Oximetry 99 01/07/25 17:56 Pain Scale Pain Intensity 0 - Physical Exam General Appearance: no apparent distress, alert Ears, Nose, Throat Exam: moist mucous membranes Respiratory Exam: normal breath sounds, airway intact Cardiovascular Exam: normal peripheral pulses Extremity Exam: normal inspection, pelvis stable Neurologic Exam: alert, 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, cooperative, normal mood/affect, sensation nml, No motor deficits Skin Exam: normal color, warm, dry, No rash Lymphatic Exam: No adenopathy SpO2 Interpretation: normal SpO2: 99 O2 Delivery: Room Air Procedures - Laceration/Wound Repair Right Wrist Time of Procedure: 20:16 Wound Location: Right (Dorsal wrist) Wound Length (cm): 1.5 Wound's Depth, Shape: superficial Wound Explored: clean Irrigated: Yes Hibiclens Prep: Yes Anesthesia: local, 1% Lidocaine Volume Anesthetic (ccs): 4 Wound Debrided: No debridement indicated Wound Repaired With: sutures Suture Size/Type: 5-0, ethilon Number of Sutures: 4 Layer Closure?: No Sterile Dressing Applied?: Yes Splint Applied?: Yes Type of Splint Applied: Wrist cock-up splint Sling Applied?: No Progress: Patient tolerated procedure well. No intra postprocedural complications. Patient neurovascularly intact distally post procedure. 01/07/25 20:17 - Course Nursing assessment & vital signs reviewed: Yes Ordered Tests: Medication Summary Discontinued Medications Generic Name Dose Route Start Last Admin Trade Name Freq PRN Reason Stop Dose Admin Bacitracin Zinc 0.9 each 01/07/25 20:10 Bacitracin Packet 1 Each Pckt TP 01/07/25 20:11 STAT ONE Bacitracin Zinc Confirm 01/07/25 20:11 Bacitracin Packet 1 Each Pckt Administered 01/07/25 20:12 Dose 1 each .ROUTE .STK-MED ONE Cephalexin HCl 500 mg 01/07/25 20:13 Cephalexin Mh500 Mg Capsule PO 01/07/25 20:14 STAT ONE Cephalexin HCl Confirm 01/07/25 20:13 Cephalexin Mh500 Mg Capsule Administered 01/07/25 20:14 Dose 500 mg .ROUTE .STK-MED ONE - Progress Progress: improved Progress Note: Patient is a 74-year-old female presents to our ED as a referral from her d ermatologist office for skin closure. Patient reports she had a skin mole surgically removed today. Patient states the stitches came apart. She called her doctor's office who advised her to come to our ED to close it. Physical exam reveals a 1.5 cm wound dehiscence. Patient on Pradaxa. However no active bleeding. The wound was repaired with 4 simple interrupted sutures using 5-0 Ethilon. Of the sutures placed by her terminal press operator 1 suture remained. Patient has 5 sutures in total. 1 from her terminal press operator that has remained in for that were placed here in our ED. Patient neurovasc intact distally post procedure. No intra or postprocedural complications. Wound was dressed. Patient placed in a cock-up splint to protect the repair. Patient agrees to follow-up with a primary care doctor within 48 hours for reevaluation. She voices no other complaints or concerns at this time. Portions of this note were created with voice recognition technology. There may be grammatical, spelling, punctuation or sound alike errors History obtained from patient. Differential diagnosis includes wound dehiscence, laceration, soft tissue infection Complexity of problems addressed is moderate acute complicated. No critical care time. Complexity of data reviewed and analyzed is low. Vital stable. Time spent to discharge patient is approximately 10 minutes. Plan of care established for shared decision making. No social determinants of health present to impede follow-up. Risk of complication and or risk of morbidity/mortality of patient management is moderate. Patient received an oral dose of Keflex. A prescription for the same forwarded to patient's pharmacy. Zpto-ace-lljpiys analgesics as needed for pain control. Vital stable. Time spent to discharge patient is approximately 10 minutes. Plan of care established for shared decision making. No social determinants health present to impede follow-up. Portions of this note were created with voice recognition technology. There may be grammatical, spelling, punctuation or sound alike errors 01/07/25 20:23 Counseled pt/family regarding: diagnosis, need for follow-up - Departure Departure Disposition: Home Clinical Impression: Wound dehiscence Condition: Stable Critical Care Time: No Referrals: SKYLER CEJA NP [Primary Care Provider, [facility]] - Follow up/PCP as directed Additional Instructions: Discharge/Care Plan KIRSTENJAIME HIGGINS was seen on 01/07/25 in the Emergency Room. The patient was counseled regarding Diagnosis,Lab results, Imaging studies, need for follow up and when to return to the Emergency Room. Prescriptions given: Discharge Note I have spoken with the patient and/or caregivers. I have explained the patient's condition, diagnosis and treatment plan based on the information available to me at this time. I have answered the patient's and/or caregiver's questions and addressed any concerns. The patient and/or caregivers have as good understanding of the patient's diagnosis, condition and treatment plan as can be expected at this point. The vital signs have been stable. The patient's condition is stable and appropriate for discharge from the emergency department. The patient will pursue further outpatient evaluation with the primary care ph ysician or other designated or consulting physician as outlined in the discharge instructions. The patient and/or caregivers are agreeable to this plan of care and follow-up instructions have been explained in detail. The patient and/or caregivers have received these instruction. The patient/and or caregivers are aware that any significant change in condition or worsening of symptoms should prompt an immediate return to this or the closest emergency department or call 911. Prescriptions: Cephalexin Mh 500 mg [Keflex 500 mg] 500 mg PO TID #21 cap
[2025-01-07] MEDS: XYLOCAINE 1% HCL 20 ML MDV IJ STA (19:46)
[2025-01-07 19:56] VITALS: RESP 18
[2025-01-07 20:03] VITALS: BP 148/72
[2025-01-07] MEDS ORDERED: BACIGUENT PACKET ONE (20:11)
[2025-01-07] MEDS ORDERED: KEFLEX 500 MG ONE (20:13)
[2025-01-07] MEDS: KEFLEX 500 MG PO ONE (20:16)
[2025-01-07] MEDS: BACIGUENT PACKET TP ONE (20:16)
[2025-01-07 20:17] VITALS: O2SAT 99
[2025-01-07] MEDS ORDERED: XYLOCAINE 1% HCL 20 ML MDV ONE (20:26)
== END 2025-01-07 20:30 | disposition home or self-care (01) ==
LOC: ED 17:47
DX: T81.31XA Disruption of external operation (surgical) wound, not elsewhere classified, initial encounter (principal); Z79.899 Other long term (current) drug therapy